=== PATIENT | male | born 1945 | race Caucasian/White ===

== ENCOUNTER → 2022-08-11 | Outpatient (CLI) | payer MEDICARE, MEDICAID, SELFPAY ==
--- NOTE | 2022-08-11 08:56 | VDLE_ITS ---
Reason For Study: Swelling Procedure LEFT This is a venous duplex using B-mode, color GSV is normal. flow and spectral Doppler. CFV is compressible, spontaneous, phasic, Exam performed in department. competent, and demonstrates normal Calf veins not well visualized due to augmentation. patient body habitus and edema. FV is compressible, spontaneous, phasic, competent and demonstrates normal augmentation. POP V is compressible, spontaneous, phasic, competent and demonstrates normal augmentation. T/P Trunk is compressible. PTV is compressible. LT PerV is compressible. SFJ is INCOMPETENT and measures 1.09 x 1.14 cm. GSV proximal thigh measures 1.11 x 1.09 cm. GSV at knee measures 0.91 x 0.98 cm. GSV is competent throughout. SSV at junction is competent and measures 0.54 x 0.53 cm. VL/Venous Duplex US, Unilateral Interpretation Summary Deep veins of the left lower extremity are patent and compressible segmentally. There is no evidence of left lower extremity deep vein thrombosis. The left great saphenous vein brenda ears patent and compressible segmentally. Positive for reflux in the left saphenofemoral junction Ordering Physician: Mounika Hameed Referring Physician: Meeta Ryan Performed By: Ainsley Davenport RVT
--- NOTE | 2022-08-11 08:56 | ART_ITS ---
Reason For Study: Ulcer Procedure A bilateral lower extremity continuous wave Doppler with analog waveform analysis,segmental pressures,and ankle brachial indexes without exercise. Left Segmental Pressures Left brachial= 132mmHg. Left thigh = 198mmHg. Left calf = 132mmHg. Left posterior tibial artery = 119mmHg. Left dorsalis pedis artery = 111mmHg. The left dorsalis pedis waveforms are biphasic. The left posterior tibial artery waveforms are biphasic. Right Segmental Pressures Right brachial= 135mmHg. Right posterior tibial artery = 132mmHg. Right dorsalis pedis artery = 135mmHg. The right dorsalis pedis waveforms are triphasic. The right posterior tibial artery waveforms are triphasic. Indices The right ankle brachial index by the dorsalis pedis is 1.00. The right ankle brachial index by the posterior tibial artery is 0.98. The left ankle brachial index by the dorsalis pedis is 0.82. The left ankle brachial index by the posterior tibial artery is 0.88. VL/Lower Ext Art Exam w/o Exercis Interpretation Summary Right GRACE 1, normal. Doppler/PVR waveforms of the right leg normal at rest. Left GRACE 0.88, moderate arterial insufficiency. Doppler/PVR waveforms and segme ntal pressures reveal distal SFA/popliteal disease Ordering Physician: Mounika Hameed Referring Physician: Meeta Ryan Performed By: Ainsley Davenport RVT
== END | disposition home or self-care (01) ==
LOC: CVS 08:51
PROVIDERS: PCP Internal Medicine Infectious Disease; Referring Provider Physician Assistant; Visit Provider Physician Assistant
DX: I73.9 Peripheral vascular disease, unspecified (principal); L97.929 Non-pressure chronic ulcer of unspecified part of left lower leg with unspecified severity; R22.42 Localized swelling, mass and lump, left lower limb
CPT/HCPCS: 93923; 93971

== ENCOUNTER → 2022-08-21 | Outpatient (CLI) | payer MEDICARE, MEDICAID, SELFPAY ==
--- NOTE | 2022-08-21 15:35 | RAD_ITS ---
STUDY: X-RAY - LEFT FOOT CLINICAL: Male, 77 years old. Pain in left foot. Deformity. TECHNIQUE: 3 view(s) of the foot. COMPARISON: None. FINDINGS: Normal talus, calcaneus, and tarsal bones. Arthrosis of the visualized subtalar, talonavicular, calcaneocuboid, tarsal and tarsometatarsal articulations. Normal first through fourth metatarsi. There is absence of the third ray at the base of the fifth metacarpal. Bone fragment tapers suggesting prior surgical change. There is degenerative arthrosis of the metatarsophalangeal joint of the hallux . Normal tibial and fibular sesamoid bones. Normal interphalangeal joint of the great toe. Normal phalanges of the great toe. Normal second through 4 metatarsophalangeal joints. 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 There is marked soft tissue swelling of the foot with ulceration laterally. No foreign body. RAD/Foot min 3 Views IMPRESSION: 1. 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 2. Soft tissue swelling with ulceration over the lateral aspect of the midfoot without visualized bony destructive change. If there is concern for myelitis, MRI or bone scan is recommended. Electronically Signed: Paco Stearns DO at 18:40 EST Reading Location ID and State: [address] [place] [address] Tel [phone], Service support ,
== END | disposition home or self-care (01) ==
LOC: RAD 15:26
PROVIDERS: PCP Internal Medicine Infectious Disease; Referring Provider Surgery Trauma Surgery; Visit Provider Surgery Trauma Surgery
DX: L97.529 Non-pressure chronic ulcer of other part of left foot with unspecified severity (principal)
CPT/HCPCS: 73630

== ENCOUNTER 2023-10-21 10:18 | Emergency (ER) | payer MEDICARE, MEDICAID, SELFPAY ==
[2023-10-21] VITALS (9 sets, daily range): BP systolic 127–175; BP diastolic 71–91; PULSE 64–93; RESP 14–18; TEMP 36.4–36.7; O2SAT 91–98; BMI 44.6
--- NOTE | 2023-10-21 10:33 | EDS_ITS ---
HPI History of Present Illness Chief Complaint: Wound Narrative Narrative: 78-year-old male presenting with wound care concerns. He was sent in by Dr. Sarah. Dr. Castle stated that he wanted to do surgery because the patient had some subcutaneous emphysema in the right foot. Apparently he did drain this foot about a week ago. Apparently the follow-up x-ray showed this air. He feels he will still need surgical intervention on the foot and the patient also has a left BKA which is apparently performed at [facility]. Dr. Sarah is now caring for him and requests he be admitted for surgery. Patient denies fevers, chills. Apparently the patient also has MRI with him from [facility] that shows abscesses in the BKA on the left that Dr. Sarah is aware of as well. 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) Cellulitis of left lower extremity (~02/2022) DVT (deep venous thrombosis) Dysphagia (~12/2020) Generalized muscle weakness (~02/2022) GERD (gastroesophageal reflux disease) Hyperglycemia Hypertension PVD (peripheral vascular disease) Home Medications albuterol sulfate 90 mcg/actuation aerosol inhaler 2 puff inhalation Q4H PRN SHORTNESS OF BREATH/WHEEZING 07/28/22 [History Last Taken Unknown] apixaban 5 mg tablet (Eliquis) 5 mg PO BID 10/21/23 [History Last Taken Unknown] cholecalciferol (vitamin D3) 125 mcg (5,000 unit) capsule 125 mcg PO DAILY 10/21/23 [History Last Taken 10/21/23] furosemide 20 mg tablet 20 mg PO BID 10/21/23 [History Last Taken Unknown] glimepiride 4 mg tablet 8 mg PO DAILY 10/21/23 [History Last Taken Unknown] insulin aspart U-100 See Protocol 10/21/23 [History Last Taken Unknown] lisinopril 10 mg tablet 10 mg PO DAILY 10/21/23 [History Last Taken Unknown] metformin 1,000 mg tablet 1,000 mg PO BID 10/21/23 [History Last Taken Unknown] metformin 1,000 mg tablet 1,000 mg PO BID DIABETES 10/21/23 [History Last Taken 10/21/23] omeprazole 20 mg capsule,delayed release 20 mg PO BID 10/21/23 [History Last Taken Unknown] Social History Smoking Status: Never smoker ROS ROS ED Constitutional Constitutional ED: Denies chills, fever(s) or sweats Eyes Eyes: Denies blurry vision or change in vision ENT ENT ED: Denies ear pain or sore throat Cardiovascular Cardiovascular: Denies chest pain, palpitations or racing heartbeat Respiratory/Chest Respiratory/Chest: Denies cough, dyspnea or sputum Gastrointestinal Gastrointestinal: Denies abdominal pain, constipation, diarrhea, nausea or vomiting Genitourinary Genitourinary ED: Denies dysuria, hematuria or urinary frequency Musculoskeletal Musculoskeletal: Denies arthralgias, myalgias or neck pain Integumentary Reports abscess; Denies Abrasions or rash Neurologic Neurologic: Denies headache(s), paresthesias or weakness Psychiatric Psychiatric: Denies anxiety, depression, suicidal ideation or suicidal thoughts Endocrine Endocrinology: Denies polydipsia or polyuria EXAM Physical Exam Const Vital Signs: 10/21/23 10:19 10/21/23 10:24 10/21/23 11:24 Temperature 97.6 F L 97.6 F L 98.1 F Temperature Source Temporal Temporal Temporal Pulse Rate 92 92 66 Respiratory Rate 18 18 18 Blood Pressure 147/84 H 147/84 H 131/71 H Blood Pressure Mean 105 105 91 Pulse Ox 97 97 95 Oxygen Delivery Method Room Air Room Air Room Air 10/21/23 12:19 Temperature Temperature Source Pulse Rate 85 Respiratory Rate 18 Blood Pressure 131/74 H Blood Pressure Mean 93 Pulse Ox 94 Oxygen Delivery Method Positive well nourished General Appearance ED: NAD HEENT normocephalic Resp normal respiratory effort and no retractions Cardio regular rate and regular rhythm Extremity Extremity Narrative: Left leg stump: Appears to be nontender. I do not appreciate any fluctuance. There is no drainage. There is a small puncture type wound in the anterior portion. No surrounding cellulitic changes. Right foot with a dressing is taken down there is some swelling but there is only a small wound on the plantar surface of the right foot. There are no other wounds I see. I do not appreciate any crepitance. Neuro oriented x3 Sensorium / Orientation: alert MDM MDM MDM Narrative Medical decision making narrative: 78-year-old male presenting with wounds. Initially thought that the patient's right foot had subcutaneous air on previous x-ray however after reviewing the records Dr. Sarah stated that this was not a new x-ray and he did not think the patient had anything surgical in his right foot. This was confirmed by x-ray today as there is no gas or other acute abnormality in the foot on my interpretation of the foot x-ray. CBC and BMP are normal. CRP minimally elevated 6.93 and sed rate is 51. Dr. Sarah did have concerned about the abscesses that were in the stump which is the other leg and feel strongly that the patient needed a stump revision. I spoke with Dr. Ramon who originally did the surgery for the stump and after short discussion she states that she will except the patient and to call the transfer line and have the medicine admitted. I counseled the patient of all this. He is amenable to going back and seeing Dr. aRmon. Impression: 1. Left stump abscesses 2. Right foot ulcer Lab Data Attestation: I reviewed the patient's lab results. Labs: Laboratory Results - last 24 hr 10/21/23 11:05 WBC 9.6 RBC 4.91 Hgb 12.6 L Hct 40.5 MCV 82.5 MCH 25.7 L MCHC 31.1 L RDW Std Deviation 47.9 H RDW Coeff of Anthony 16.0 H Plt Count 297 MPV 10.1 Immature Gran % (Auto) 0.700 Neut % (Auto) 71.5 H Lymph % (Auto) 12.3 L [place] % (Auto) 12.1 H Eos % (Auto) 2.6 Baso % (Auto) 0.8 Absolute Neuts (auto) 6.8 Absolute Lymphs (auto) 1.18 Nucleated RBC % 0 ESR 51 H Sodium 137 Potassium 4.1 Chloride 106 Carbon Dioxide 25.0 Anion Gap 6 BUN 23 H Creatinine 1.29 Estim Creat Clear Calc 79.86 Est GFR (MDRD) Af Amer 70 Est GFR (MDRD) Non-Af 58 L BUN/Creatinine Ratio 17.8 Glucose 117 H Calcium 9.2 C-React Prot Ext Range 6.93 H Radiography Diagnostic Testing: Clinical Impression(s) from Imaging Studies Foot X-Ray 10/21/23 10:35 IMPRESSION: Status post amputation of the left fifth toe. Degenerative changes as described. Diffuse soft tissue swelling. Electronically Signed: Joselito Tejada MD at 11:23 EDT , Discharge Plan Triage Chief Complaint: Wound ED Provider: Perico Corona Dx/Rx/DC Orders Prescriptions: No Action albuterol sulfate 90 mcg/actuation HFA aerosol inhaler 2 puff inhalation Q4H PRN (Reason: SHORTNESS OF BREATH/WHEEZING ) glimepiride 4 mg tablet 8 mg PO DAILY metformin 1,000 mg tablet 1,000 mg PO BID cholecalciferol (vitamin D3) 125 mcg (5,000 unit) capsule 125 mcg PO DAILY metformin 1,000 mg tablet 1,000 mg PO BID insulin aspart U-100 See Protocol Protocol: 6. Sliding Scale Insulin Custom Condition: mg/dl range Dose/Route: Number of Units Condition: 151-200 Dose/Route: 3 units Condition: 201-250 Dose/Route: 6 units Condition: 251-300 Dose/Route: 9 units Condition: 301-350 Dose/Route: 12 units Condition: 351-400 Dose/Route: 15 units Condition: >400 Instruction: call MD Protocol Text: Custom Sliding Scale lisinopril 10 mg tablet 10 mg PO DAILY omeprazole 20 mg capsule,delayed release(DR/EC) 20 mg PO BID furosemide 20 mg tablet 20 mg PO BID Eliquis 5 mg tablet 5 mg PO BID Primary Care Provider: Meeta Ryan Referrals: Meeta Ryan MD [Primary Care Provider] -
--- NOTE | 2023-10-21 10:35 | RAD_ITS ---
STUDY: X-RAY - RIGHT FOOT CLINICAL: Male, 78 years old. Nontraumatic pain. TECHNIQUE: 3 view(s) of the foot. COMPARISON: None. FINDINGS: Calcaneal spurs. Normal visualized subtalar, talonavicular, calcaneocuboid, tarsal and tarsometatarsal articulations. Normal metatarsi. There is degenerative arthrosis of the metatarsophalangeal joint of the hallux . Normal tibial and fibular sesamoid bones. Normal interphalangeal joint of the great toe. Normal phalanges of the great toe. Marked degree of degenerative changes of the first cuneiform first metatarsal joint osteoarthritis. The patient is status post amputation of the fifth digit. Flexion deformity of the metatarsophalangeal joints. Diffuse soft tissue swelling. RAD/Foot min 3 Views IMPRESSION: Status post amputation of the left fifth toe. Degenerative changes as described. Diffuse soft tissue swelling. Electronically Signed: Joselito Tejada MD at 11:23 EDT ,
[2023-10-21 11:23] LABS: Erythrocyte Sedimentation Rate 51 mm/hr (0-20)
[2023-10-21 11:27] LABS: Absolute Lymphocyte Count 1.18 X10^3/uL (0.83-4.51); Absolute Neutrophil Count 6.8 X10^3/uL (2.0-7.7); Basophil# 0.08 X10^3/uL; Basophil% 0.8 % (0-1); Eosinophil# 0.25 X10^3/uL; Eosinophils% 2.6 % (0-5); Hematocrit 40.5 % (40-54); Hemoglobin 12.6 g/dL (13.0-16.5); Lymphocyte # 1.18 X10^3/ul (0.83-4.51); Lymphocyte % 12.3 % (19-41); Mean Corp Hgb Conc 31.1 g/dL (32-36); Mean Corpuscular Hgb 25.7 pg (27.0-32.0); Mean Corpuscular Volume 82.5 fL (80-94); Mean Platelet Vol. 10.1 fl (6.2-12.0); Monocyte# 1.16 X10^3/uL; Monocyte% 12.1 % (0-10); NRBC Flagged by Analyzer 0 % (0-5); Neutrophil # 6.84 X10^3/uL (2.7-7.7); Neutrophil % 71.5 % (47-70); Platelet Count 297 K/mm3 (150-450); RBC Distribution Width SD 47.9 fl (35.1-43.9); Red Blood Count 4.91 M/mm3 (4.6-6.2); White Blood Count 9.6 K/mm3 (4.4-11.0)
[2023-10-21 11:30] LABS: Anion Gap 6 (5-15); BUN 23 mg/dL (7-18); BUN/Creat Ratio 17.8 RATIO (10-20); CRP 6.93 mg/L (0.0-3.0); Calcium,Total 9.2 mg/dL (8.5-10.1); Chloride 106 mmol/L (98-107); Creatinine, Serum 1.29 mg/dL (0.70-1.30); EST Glomerular Filtration Rate 58 mL/min (>60); Est Glom Filt Rate - Afr Amer 70 mL/min (>60); Estimated Creatinine Clearance 79.86 ml/min; Glucose 117 mg/dL (74-106); Potassium 4.1 mmol/L (3.5-5.1); Sodium Level 137 mmol/L (136-145)
--- NOTE | 2023-10-21 12:11 | ED.RN ---
Paged Dr Ramon for pt. Office wasn't sure she would call back.
--- NOTE | 2023-10-21 12:29 | ED.RN ---
called [facility] for transfer.
[2023-10-21] MEDS: Piperacil/Tazobactam 3.375 GM in 0.9% Normal Saline (50mL MB+) 50 ML IV (16:36)
[2023-10-21] MEDS: Vancomycin HCl 2,000 MG in 0.9% Normal Saline (500mL Bag) 500 ML 250 MG IV (18:09)
[2023-10-21] MEDS: DiphenhydrAMINE 50 MG/ML Syringe 25 MG IV (22:02)
[2023-10-21 22:28] LABS: Bedside Glucose 165 mg/dL (74-106)
[2023-10-22] VITALS (12 sets, daily range): BP systolic 93–155; BP diastolic 51–84; PULSE 66–101; RESP 16–20; TEMP 36.2–36.8; O2SAT 93–98
--- NOTE | 2023-10-22 06:52 | ED.RN ---
Home meds verified with Dr. Zamorano. Ok for pt to eat breakfast and receive morning meds but not insulin at this time. To check blood sugars ACHS but update Doc on blood sugars.
[2023-10-22 07:00] LABS: Bedside Glucose 130 mg/dL (74-106)
[2023-10-22] MEDS: Glimepiride 4 MG Tablet 8 MG PO (11:55)
[2023-10-22] MEDS: metFORMIN HCl 1,000 MG Tablet 1000 MG PO ×2 (11:56→17:57)
[2023-10-22] MEDS: Pantoprazole Sodium 20 MG Tablet PO ×2 (11:56→22:05)
[2023-10-22] MEDS: Lisinopril 10 MG Tablet PO (11:56)
[2023-10-22] MEDS: Furosemide 20 MG Tablet PO ×2 (11:57→18:34)
[2023-10-22] MEDS: Cholecalciferol (Vit D3) 125 MCG CAPSULE (5,000 UNITS) PO (11:57)
[2023-10-22 17:29] LABS: Bedside Glucose 63 mg/dL (74-106)
--- NOTE | 2023-10-22 17:44 | ED.RN ---
Report given to Janna PERKINS at [facility].
[2023-10-22 18:22] LABS: Bedside Glucose 93 mg/dL (74-106)
--- NOTE | 2023-10-22 19:57 | ED.RN ---
[facility] for [facility] ETA. They gave an additional 2-3 hours from now.
--- NOTE | 2023-10-22 22:39 | PCM.RX.CS ---
Consult Antibiotic Management Pharmacy has been consulted to manage selected antibiotic: Vancomycin Type of Intervention Type of Consult: New start Suspected Infection Suspected Infection: Skin/Soft tissue Labs Labs: Sodium 137 mmol/L (136-145) 10/21/23 11:05 Potassium 4.1 mmol/L (3.5-5.1) 10/21/23 11:05 Chloride 106 mmol/L (98-107) 10/21/23 11:05 Carbon Dioxide 25.0 mmol/L (21.0-32.0) 10/21/23 11:05 Anion Gap 6 (5-15) 10/21/23 11:05 BUN 23 mg/dL (7-18) H 10/21/23 11:05 Creatinine 1.29 mg/dL (0.70-1.30) 10/21/23 11:05 Est GFR (MDRD) Af Amer 70 mL/min (>60) 10/21/23 11:05 Est GFR (MDRD) Non-Af 58 mL/min (>60) L 10/21/23 11:05 BUN/Creatinine Ratio 17.8 RATIO (10-20) 10/21/23 11:05 Glucose 117 mg/dL (74-106) H 10/21/23 11:05 Dosing Weight Weight used for dosin kg Estimated Creatinine Clearance Estimated Creatinine Clearance: 79 Goal Trough Goal Trough: 15-20 mcg/mL Pharmacy Plan for Drug Dosing Pharmacy Plan for Drug Dosing: NEW START IV VANCOMYCIN Consulting Physician: Dr. Corona Indication: abscess/cellulitis Goal Trough: 15-20 SrCr: 1.29 (10/21/23) CrCl: 79 ml/min Comments: Received Vancomycin 2000mg x1 dose at 18:09 10/21/23 Vancomycin Dose: Vancomycin 1750mg Q12H Pending Level: Vancomycin trough @ 10:30 10/24/23 Pharmacy Service will continue to monitor and adjust dosing as required. Follow-Up Labs Follow-Up Labs: Trough: Vancomycin (10:30 10/24/23)
== END 2023-10-22 23:26 | disposition short-term general hospital (02) ==
LOC: ED 11:16
PROVIDERS: Emergency Provider Student in an Organized Health Care Education/Training Program; PCP Internal Medicine Infectious Disease; Visit Provider Student in an Organized Health Care Education/Training Program
DX: T87.44 Infection of amputation stump, left lower extremity (principal); L97.919 Non-pressure chronic ulcer of unspecified part of right lower leg with unspecified severity; Z89.512 Acquired absence of left leg below knee; Z79.4 Long term (current) use of insulin; L02.91 Cutaneous abscess, unspecified; K21.9 Gastro-esophageal reflux disease without esophagitis; I10 Essential (primary) hypertension; E78.5 Hyperlipidemia, unspecified; Z79.01 Long term (current) use of anticoagulants; Z79.84 Long term (current) use of oral hypoglycemic drugs; Z86.718 Personal history of other venous thrombosis and embolism; Z79.899 Other long term (current) drug therapy
CPT/HCPCS: 73630; 80048; 82962; 85025; 85652; 86140; 96365; 96366; 96367; 96375; 99284; J7040; A4216

== ENCOUNTER 2023-11-11 09:15 | Outpatient (RCR) | payer MEDICARE, MEDICAID, SELFPAY ==
[2023-10-14 09:10] VITALS: BP 164/75; PULSE 94; RESP 18; TEMP 36; BMI 44.4
--- NOTE | 2023-10-14 13:22 | HP.PCM_ITS ---
History of Present Illness Date of Service: 10/14/23 Chief Complaint: Bilateral leg wounds. History of Wound: By leg wounds. Progress of Wound: Mr. 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 Patient was seen by an outside provider/orthopedic surgeon who performed below-knee amputation to left lower extremity. 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 Patient has been on oral antibiotics with limited success on healing to the wound on the left stump site. Patient also has multiple full- thickness ulcerations to the right lower extremity secondary to increased pressure with AFO brace and contracture at the level of the ankle. Patient is nonambulatory at this time secondary to low knee amputation to left lower extremity. He is able to transfer and move around in a wheelchair. He denies any trauma. He admits to a wide range of blood sugar readings from 100 to 300 mg/dL. He does admit that he is more stable at the residential facility. He denies any trauma. 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) Cellulitis of left lower extremity (~02/2022) DVT (deep venous thrombosis) Dysphagia (~12/2020) Generalized muscle weakness (~02/2022) GERD (gastroesophageal reflux disease) Hyperglycemia Hypertension PVD (peripheral vascular disease) Home Medications albuterol sulfate 90 mcg/actuation aerosol inhaler 2 puff inhalation Q4H PRN 07/28/22 [History Last Taken Unknown] apixaban 5 mg tablet (Eliquis) 5 mg PO BID 07/28/22 [History Last Taken Unknown] furosemide 20 mg tablet 20 mg PO DAILY 07/28/22 [History Last Taken Unknown] lisinopril 10 mg tablet 10 mg PO DAILY 07/28/22 [History Last Taken Unknown] omeprazole 20 mg capsule,delayed release 20 mg PO BID 07/28/22 [History Last Taken Unknown] cephalexin 500 mg capsule 500 mg PO TID 08/21/22 [History Last Taken Unknown] doxycycline hyclate 100 mg tablet 100 mg PO BID 08/21/22 [History Last Taken Unknown] Allergy/AdvReac Type Severity Reaction Status Date / Time No Known Allergies Allergy Unverified 08/21/22 14:59 Social History Smoking Status: Never smoker Vital Signs Vital Signs Vital Signs: 10/14/23 09:10 Temperature 96.8 F L Temperature Source Temporal Pulse Rate 94 Respiratory Rate 18 Blood Pressure 164/75 H Blood Pressure Mean 104 Blood Pressure Source Monitor Blood Pressure Position Sitting Blood Pressure Location Left Forearm Oxygen Delivery Method Room Air Weight Weight: 161.479 kg Body Mass Index (BMI) 44.4 Physical Exam Narrative Vascular: DP and PT pulses are nonpalpable to the right lower extremity. DP and PT pulses on Doppler are biphasic. 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 Skin temp great is warm to warm from proximal ankle to distal digits to the right lower extremity. Skin temperature gradient is warm to cool to the need to the BKA stump to left lower extremity. No focal increase appreciated. Neurological: Light touch intact. Protective station is diminished. Dermatological: Full-thickness ulceration which is a tunneling wound of the left BKA stump measuring 0.3 x 0.3 x 2.2 cm. Sanguinous drainage is appreciated. No probe to bone. Right leg cluster full-thickness ulceration measures 0.3 x 0.4 x 0.1 cm. Right ankle laterally full-thickness ulceration measures 0.9 x 0.8 x 0.2 cm. Wound depth is down to muscle. Right lateral foot ulceration measures 0.4 x 0.5 x 0.1 cm. Right second digit dorsally full-thickness ulceration measures 0.7 x 0.7 x 0.1 cm. All wound bases are granular nature with no sign of infection bilaterally. Excisional debridement down to and including subcutaneous tissue of the left BKA stump full-thickness ulceration with a number 1 mm dermal curette without incident. Predebridement measurement was 0.2 x 0.2 x 2.0 cm. Postdebridement measurement is 0.3 x 0.3 x 2.2 cm. Excisional debridement down to and including subcutaneous tissue with a number 3 mm dermal curette through the right leg cluster ulcerations without incident. Predebridement measurement was 0.2 x 0.3 x 0.1 cm. Postdebridement measurement is 0.3 x 0.4 x 0.1 cm. Excisional debridement down to and including subcutaneous tissue fascia and muscle of the right lateral ankle full-thickness ulceration with a number 3 mm dermal curette without incident. Predebridement measurement was 0.7 x 0.7 x 0.1 cm. Postdebridement measurement is 0.9 x 0.8 x 0.2 cm. Incision debridement down to and including subcutaneous tissue with a number 3 mm dermal curette to the lateral foot ulceration without incident. Predebridement measurement was 0.3 x 0.4 x 0.1 cm. Postdebridement measurement is 0.4 x 0.5 x 0.1 cm. Excisional debridement down to and including subcutaneous tissue of the dorsal second digit on the right foot with a number 3 mm dermal curette without incident. Predebridement measurement was eschar. Postdebridement measurement is 0.7 x 0.7 0.1 cm. Musculoskeletal evidence of varus contracture to the right ankle secondary to tight posterior tibial tendon and anterior tibial tendon. Full range of motion of the knee without pain or crepitus. No pain to palpation to bilateral full- thickness ulcerations. No pain with calf compression bilateral. Debridement Note Debridement Note Debridement Free Text: Excisional debridement down to and including subcutaneous tissue of the left BKA stump full-thickness ulceration with a number 1 mm dermal curette without incident. Predebridement measurement was 0.2 x 0.2 x 2.0 cm. Postdebridement measurement is 0.3 x 0.3 x 2.2 cm. Excisional debridement down to and including subcutaneous tissue with a number 3 mm dermal curette through the right leg cluster ulcerations without incident. Predebridement measurement was 0.2 x 0.3 x 0.1 cm. Postdebridement measurement is 0.3 x 0.4 x 0.1 cm. Excisional debridement down to and including subcutaneous tissue fascia and muscle of the right lateral ankle full-thickness ulceration with a number 3 mm dermal curette without incident. Predebridement measurement was 0.7 x 0.7 x 0.1 cm. Postdebridement measurement is 0.9 x 0.8 x 0.2 cm. Incision debridement down to and including subcutaneous tissue with a number 3 mm dermal curette to the lateral foot ulceration without incident. Predebridement measurement was 0.3 x 0.4 x 0.1 cm. Postdebridement measurement is 0.4 x 0.5 x 0.1 cm. Excisional debridement down to and including subcutaneous tissue of the dorsal second digit on the right foot with a number 3 mm dermal curette without incident. Predebridement measurement was eschar. Postdebridement measurement is 0.7 x 0.7 0.1 cm. Post-Debridement Measurements and Additional Note: Post-Debridement Measurements/Treatment - Nurse 1 - General Ulcer Assessment Start: 10/14/23 09:01 Freq: Status: Active Protocol: [email or web address] Activity Type Activity Date Activity User E-sign Co-sign Detail Recorded Client Recorded Date Recorded By Document 10/14/23 09:10 KW Desktop 10/14/23 09:35 KW 10/14/23 09:10 - Today's Visit Information Type of service Initial Visit Arrival Mode Wheelchair Transfer Assistance Jackelyn Lift Accompanied by nurse Patient Identification Verified (Name & Yes ) Finger Stick Blood Sugar(mg/dl) (if 144 indicated): Blood Sugar Stated by Patient Height and Weight Height 6 ft 3 in Weight 161.479 kg Weight in Pounds 356.0 lbs Weight Measurement Method Long-Term Body Mass Index (BMI) 44.4 BMI Classification Obese BSA - Seema 2.80 Vital Signs Temperature (97.8 F-99.1 F) 96.8 F L Temperature Source Temporal Pulse Rate (60-100) 94 Pulse Location Monitor Respiratory Rate (12-18) 18 Respiratory rate source Observation Oxygen Delivery Method Room Air Blood Pressure (90/60-120/80) 164/75 H Blood Pressure Mean 104 Source Monitor Position Sitting Blood Pressure Location Left Forearm History Since Last Visit- (Skip if this is Patient's initial visit) Left Footwear No Footwear Right Footwear No Footwear Pain Scale: 0-10 Numeric Is Patient Pain Free? Yes Communication Assessment Preferred language [place] [employer] Technician Required No Able to Read Yes Able to Write Yes Communication Tools None Caregiver Communication Skills No Impairment Impairment Right Hearing Abillity Hard of Hearing Left Hearing Abillity Hard of Hearing Visual Assistive Devices None Teaching Assessment Preferences Verbal,Written, Demonstration Barriers to Learning None Readiness To Learn Excellent Willingness to Engage in Self Management High Activies Readiness to Engage in Self Management High Activities Anxiety Level Calm Cooperation Cooperative Perception Coherent Interest in Health Problem Asks Questions Education Importance Acknowledges Need Does Patient Smoke tobacco or other Yes substances Smoking Status Never smoker Is Patient Diabetic Yes Functional Assessment Recent Decline in Ability to Perform Ambulation, Bathing,Lower Body Dressing, Toileting, Transferring Culture/Sikhism/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 Landscape Architecture Teacher to contact place of rastafarian No WC - Nurse 1 - General Ulcer Measurement Start: 10/14/23 09:01 Freq: Status: Active Protocol: Activity Type Activity Date Activity User E-sign Co-sign Detail Recorded Client Recorded Date Recorded By Document 10/14/23 09:10 KW Desktop 10/14/23 09:35 KW 10/14/23 09:10 Wound Center Nurse 1 #2 RT GOODE -Current Size (cm) - Length 0.3 -Current Size (cm) - Width 0.2 -Current Size (cm) - Depth 0.1 -Total Square Cm 0.06 -Exudate Amt Small -Exudate Type Serosanguineous -Wound Margin Distinct, Outline Attached -Granulation Amt Large (67-100%) -Granulation Quality Red -Texture (Michell-wound Skin Appearance) Assessed -Moisture (Michell-wound Skin Appearance) Assessed -Color (Michell-wound Skin Appearance) Assessed, Hemosiderin Staining -Temperature (Michell-wound Skin No Abnormality Appearance) (Pt Warm) -Ulcer Cleansing Soap and Water -Foul Odor after Cleansing No -Anesthetic Used 5% Lidocaine Gel #6 RT 2ND TOE -Current Size (cm) - Length 0.5 -Current Size (cm) - Width 0.5 -Current Size (cm) - Depth 0.1 -Total Square Cm 0.25 -Exudate Amt Medium -Exudate Type Serosanguineous -Wound Margin Distinct, Outline Attached -Granulation Amt Large (67-100%) -Granulation Quality Red -Necrosis Amt Small (1-33%) -Necrotic Tissue Type Adherent Slough -Texture (Michell-wound Skin Appearance) Assessed -Moisture (Michell-wound Skin Appearance) Assessed -Color (Michell-wound Skin Appearance) Assessed -Temperature (Michell-wound Skin No Abnormality Appearance) (Pt Warm) -Tenderness on Palpation (Michell-wound No Skin Appearance) -Ulcer Cleansing Soap and Water -Foul Odor after Cleansing No -Anesthetic Used 5% Lidocaine Gel #5 RT LAT FT -Current Size (cm) - Length 0.1 -Current Size (cm) - Width 0.1 -Current Size (cm) - Depth 0.1 -Total Square Cm 0.01 -Exudate Amt Small -Exudate Type Serosanguineous -Wound Margin Distinct, Outline Attached -Granulation Amt Large (67-100%) -Granulation Quality Red -Texture (Michell-wound Skin Appearance) Assessed -Moisture (Michell-wound Skin Appearance) Assessed -Color (Michell-wound Skin Appearance) Assessed -Temperature (Michell-wound Skin No Abnormality Appearance) (Pt Warm) -Tenderness on Palpation (Mcihell-wound No Skin Appearance) -Ulcer Cleansing Soap and Water -Foul Odor after Cleansing No -Anesthetic Used 5% Lidocaine Gel #4 RT LAT ANKLE -Current Size (cm) - Length 1 -Current Size (cm) - Width 0.8 -Current Size (cm) - Depth 0.3 -Total Square Cm 0.8 -Exudate Amt Small -Exudate Type Serosanguineous -Wound Margin Distinct, Outline Attached -Granulation Amt Large (67-100%) -Granulation Quality Red -Necrosis Amt Small (1-33%) -Necrotic Tissue Type Adherent Slough -Texture (Michell-wound Skin Appearance) Assessed -Moisture (Michell-wound Skin Appearance) Assessed -Color (Michell-wound Skin Appearance) Assessed, Hemosiderin Staining -Temperature (Michell-wound Skin No Abnormality Appearance) (Pt Warm) -Ulcer Cleansing Soap and Water -Foul Odor after Cleansing No -Anesthetic Used 5% Lidocaine Gel #3 RT LAT LEG CLUSTER -Current Size (cm) - Length 0.1 -Current Size (cm) - Width 0.1 -Current Size (cm) - Depth 0.1 -Total Square Cm 0.01 -Exudate Amt Small -Exudate Type Serosanguineous -Wound Margin Distinct, Outline Attached -Granulation Amt Large (67-100%) -Granulation Quality Red -Texture (Michell-wound Skin Appearance) Assessed -Moisture (Michell-wound Skin Appearance) Assessed -Color (Michell-wound Skin Appearance) Assessed -Temperature (Michell-wound Skin No Abnormality Appearance) (Pt Warm) -Ulcer Cleansing Soap and Water -Anesthetic Used 5% Lidocaine Gel #1 LT STUMP -Current Size (cm) - Length 0.6 -Current Size (cm) - Width 0.6 -Current Size (cm) - Depth 3 -Total Square Cm 0.36 -Circular Undermining Yes -Exudate Amt Medium -Exudate Type Serosanguineous -Wound Margin Distinct, Outline Attached -Granulation Amt Large (67-100%) -Granulation Quality Red -Texture (Michell-wound Skin Appearance) Assessed -Moisture (Michell-wound Skin Appearance) Assessed -Color (Michell-wound Skin Appearance) Assessed -Temperature (Michell-wound Skin No Abnormality Appearance) (Pt Warm) -Tenderness on Palpation (Michell-wound No Skin Appearance) -Ulcer Cleansing Soap and Water -Foul Odor after Cleansing No -Anesthetic Used 5% Lidocaine Gel WC - Nurse 2 - General Ulcer CM Notes Start: 10/14/23 09:01 Freq: Status: Active Protocol: Activity Type Activity Date Activity User E-sign Co-sign Detail Recorded Client Recorded Date Recorded By Document 10/14/23 10:05 Laptop 10/14/23 10:16 10/14/23 10:05 Wound Center Nurse 2 #2 RT GOODE -Correct Patient No -Correct Side, Site, Position No -Correct Procedure No -Procedure Performed No #6 RT 2ND TOE -Time 10:10 -Correct Patient Yes -Correct Side, Site, Position Yes -Correct Procedure Yes -Procedure Performed Yes -Type of Procedure Debridement -Clinical Debridement Subcutaneous -Tissue Removed Subcutaneous -Post Debridement (cm) - Length 0.7 -Post Debridement (cm) - Width 0.7 -Post Debridement (cm) - Depth 0.1 -Total Square (Post) (cm) 0.49 -Area of Debridement (cm) - Length 0.7 -Area of Debridement (cm) - Width 0.7 -Total Square (Area) (cm) 0.49 -Tunneling No -Undermining/Tunneling No -Circular Undermining No -Wound/Ulcer Outcome Not Healed -Ulcer Cleansing Rinsed/ Irrigated with Saline -Foul Odor after Cleansing No -Bioengineered Tissue No -Bleeding Controlled with Pressure -Treatment Response Procedure Tolerated Well -Offloading No -Debridement - Subq, 1st 20sq cm No #5 RT LAT FT -Time 10:10 -Correct Patient Yes -Correct Side, Site, Position Yes -Correct Procedure Yes -Procedure Performed Yes -Type of Procedure Debridement -Clinical Debridement Subcutaneous -Tissue Removed Subcutaneous -Post Debridement (cm) - Length 0.4 -Post Debridement (cm) - Width 0.5 -Post Debridement (cm) - Depth 0.1 -Total Square (Post) (cm) 0.20 -Area of Debridement (cm) - Length 0.4 -Area of Debridement (cm) - Width 0.5 -Total Square (Area) (cm) 0.20 -Tunneling No -Undermining/Tunneling No -Circular Undermining No -Wound/Ulcer Outcome Not Healed -Ulcer Cleansing Rinsed/ Irrigated with Saline -Foul Odor after Cleansing No -Bioengineered Tissue No -Bleeding Controlled with Pressure -Treatment Response Procedure Tolerated Well -Offloading No -Debridement - Subq, 1st 20sq cm No #4 RT LAT ANKLE -Time 10:11 -Correct Patient Yes -Correct Side, Site, Position Yes -Correct Procedure Yes -Procedure Performed Yes -Type of Procedure Debridement -Clinical Debridement Muscle / Fascia -Tissue Removed Muscle,Fascia -Post Debridement (cm) - Length 0.9 -Post Debridement (cm) - Width 0.8 -Post Debridement (cm) - Depth 0.2 -Total Square (Post) (cm) 0.72 -Area of Debridement (cm) - Length 0.9 -Area of Debridement (cm) - Width 0.8 -Total Square (Area) (cm) 0.72 -Tunneling No -Undermining/Tunneling No -Circular Undermining No -Wound/Ulcer Outcome Not Healed -Ulcer Cleansing Rinsed/ Irrigated with Saline -Foul Odor after Cleansing No -Bioengineered Tissue No -Bleeding Controlled with Pressure -Treatment Response Procedure Tolerated Well -Offloading No -Debridement - Subq, 1st 20sq cm No -Debridement - Muscle / Fascia, 1st Yes 20sq cm #3 RT LAT LEG CLUSTER -Time 10:11 -Correct Patient Yes -Correct Side, Site, Position Yes -Correct Procedure Yes -Procedure Performed Yes -Type of Procedure Debridement -Clinical Debridement Subcutaneous -Tissue Removed Subcutaneous -Post Debridement (cm) - Length 0.3 -Post Debridement (cm) - Width 0.4 -Post Debridement (cm) - Depth 0.1 -Total Square (Post) (cm) 0.12 -Area of Debridement (cm) - Length 0.3 -Area of Debridement (cm) - Width 0.4 -Total Square (Area) (cm) 0.12 -Tunneling No -Undermining/Tunneling No -Circular Undermining No -Wound/Ulcer Outcome Not Healed -Ulcer Cleansing Rinsed/ Irrigated with Saline -Bioengineered Tissue No -Bleeding Controlled with Pressure -Treatment Response Procedure Tolerated Well -Offloading No -Debridement - Subq, 1st 20sq cm No #1 LT STUMP -Time 10:12 -Correct Patient Yes -Correct Side, Site, Position Yes -Correct Procedure Yes -Procedure Performed Yes -Type of Procedure Debridement -Clinical Debridement Subcutaneous -Tissue Removed Dermis -Post Debridement (cm) - Length 0.3 -Post Debridement (cm) - Width 0.3 -Post Debridement (cm) - Depth 2.2 -Total Square (Post) (cm) 0.09 -Area of Debridement (cm) - Length 0.3 -Area of Debridement (cm) - Width 0.3 -Total Square (Area) (cm) 0.09 -Tunneling No -Undermining/Tunneling No -Circular Undermining No -Wound/Ulcer Outcome Not Healed -Ulcer Cleansing Rinsed/ Irrigated with Saline -Foul Odor after Cleansing No -Bioengineered Tissue No -Bleeding Controlled with Pressure -Treatment Response Procedure Tolerated Well -Offloading No -Debridement - Subq, 1st 20sq cm Yes Pain Scale: 0-10 Numeric Is Patient Pain Free? Yes WC - Nurse 3 - General Ulcer D/C NN Start: 10/14/23 09:01 Freq: Status: Active Protocol: Activity Type Activity Date Activity User E-sign Co-sign Detail Recorded Client Recorded Date Recorded By Document 10/14/23 10:50 KW Desktop 10/14/23 10:51 KW 10/14/23 10:50 Wound Care Center Nurse 3 #6 RT 2ND TOE -Primary Dressing Applied Promogran Rafaela Matter -Primary Dressing Covered/Secured with Dry Gauze,Dry Gauze & Roll Gauze,Secured with Tape -Promogran Rafaela Matter 1 #5 RT LAT FT -Primary Dressing Covered/Secured with Dry Gauze #4 RT LAT ANKLE -Primary Dressing Covered/Secured with Dry Gauze #3 RT LAT LEG CLUSTER -Primary Dressing Covered/Secured with Dry Gauze #1 LT STUMP -Primary Dressing Applied Nugauze, Iodoform 1/4in -Primary Dressing Covered/Secured with Dry Gauze & Roll Gauze, Secured with Tape -Nugauze, Iodoform 1/4in 1 Left -Tubular Bandage Single Layer -Size of Tubigrip Used Size E -Size E ($) 1 Right -Tubular Bandage Single Layer -Size of Tubigrip Used Size E -Size E ($) 1 Pain Scale: 0-10 Numeric Is Patient Pain Free? Yes WC - Visit Discharge Discharge Condition Stable Ambulatory Status Wheelchair Accompanied by NURSE Medication Reconcilliation completed & No provided to patient/care provider Clinical Summary of Care Provided Yes Assessment/Plan Assessment/Plan (1) Non-pressure chronic ulcer of right ankle with necrosis of muscle: CODE(S): L97.313 - Non-pressure chronic ulcer of right ankle with necrosis of muscle PLAN: Patient was examined and evaluated. All findings were discussed with the patient. All questions were answered to the patient's satisfaction. Excisional debridement down to and including subcutaneous tissue of the left BKA stump full-thickness ulceration with a number 1 mm dermal curette without incid ent. Predebridement measurement was 0.2 x 0.2 x 2.0 cm. Postdebridement measurement is 0.3 x 0.3 x 2.2 cm. Excisional debridement down to and including subcutaneous tissue with a number 3 mm dermal curette through the right leg cluster ulcerations without incident. Predebridement measurement was 0.2 x 0.3 x 0.1 cm. Postdebridement measurement is 0.3 x 0.4 x 0.1 cm. Excisional debridement down to and including subcutaneous tissue fascia and muscle of the right lateral ankle full-thickness ulceration with a number 3 mm dermal curette without incident. Predebridement measurement was 0.7 x 0.7 x 0.1 cm. Postdebridement measurement is 0.9 x 0.8 x 0.2 cm. Incision debridement down to and including subcutaneous tissue with a number 3 mm dermal curette to the lateral foot ulceration without incident. Predebridement measurement was 0.3 x 0.4 x 0.1 cm. Postdebridement measurement is 0.4 x 0.5 x 0.1 cm. Excisional debridement down to and including subcutaneous tissue of the dorsal second digit on the right foot with a number 3 mm dermal curette without incident. Predebridement measurement was eschar. Postdebridement measurement is 0.7 x 0.7 0.1 cm. The bilateral lower extremities were cleaned and patted dry. Iodoform packing was packed into the full-thickness ulceration of the left BKA stump followed by dry sterile dressing and Tubigrip. The right lower extremity full-thickness ulceration was dressed with Rafaela, dry sterile dressing and a single-layer Tubigrip. Bilateral dressings can be changed daily and or every other day as well as as needed when needed with iodoform to the left and Rafaela to the right followed by dry sterile dressing and compression bilaterally. Educated the patient to continue to optimize his condition so that we can move forward with elective surgery consisting of TTC arthrodesis with [place] 28 silver back lateral plating system. The patient suffers from a contracture and would not be a candidate for soft tissue reconstruction but rather for osseous arthrodesis. Risk and benefit discussed with patient great detail. Patient was understanding this. Educated patient continue to work with physical therapy and do as much upper bod y strengthening conditioning as possible. He is to watch his weight control and continue strict blood sugar control which she was understanding of. X-rays were ordered for the right foot and ankle. Will discuss findings at follow-up. Follow-up at the wound care center with Dr. Sarah in 1 week. 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
--- NOTE | 2023-10-15 11:48 | WC ---
10/14/2023 LEFT MEDIAL STUMP
--- NOTE | 2023-10-15 11:49 | WC ---
10/14/2023 RIGHT SECOND TOE (I)
--- NOTE | 2023-10-15 11:49 | WC ---
10/14/2023 RIGHT LATERAL ANKLE(I), RIGHT LATERAL FOOT (I)
[2023-10-21 09:15] VITALS: BP 131/71; PULSE 93; RESP 18; TEMP 36.3; BMI 44.4
--- NOTE | 2023-10-21 12:57 | PCM.WC.PN ---
History of Present Illness Date of Service: 10/21/23 Chief Complaint: Bilateral leg wounds. History of Wound: By leg wounds. Progress of Wound: Mr. 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 Patient was seen by an outside provider/orthopedic surgeon who performed below-knee amputation to left lower extremity. 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 Patient has been on oral antibiotics with limited success on healing to the wound on the left stump site. Patient also has multiple full-thickness ulcerations to the right lower extremity secondary to increased pressure with AFO brace and contracture at the level of the ankle. Patient is nonambulatory at this time secondary to low knee amputation to left lower extremity. He is able to transfer and move around in a wheelchair. He denies any trauma. He admits to a wide range of blood sugar readings from 100 to 300 mg/dL. He does admit that he is more stable at the [facility] facility. He denies any trauma. Subjective Subjective Mr. Olivares is a 78-year-old diabetic male presenting to clinic today for follow-up evaluation of multiple full-thickness ulcerations to the right lower extremity as well as full-thickness tunneling wound to the left below-knee amputation stump. Patient admits to getting a MRI of the left lower extremity/BKA stump approximately 7 days ago. He presents today with the results. He has been doing wound care dressing changes at the [facility] facility with the aid of the nursing staff. He denies any changes to the right lower extremity. He has been compliant with this use of the brace to the right leg as it was causing breakdown of skin. He continues to offload the right leg with a PRAFO boot as well as the left BKA stump with a PRAFO boot. He presents today in a wheelchair and Jackelyn sheet. He admits to blood sugar being well-controlled with some incidence of elevated blood sugar above 200 mg/dL. He denies any trauma. Denies any constitutional symptoms. No other pedal complaints at this time. Objective Data Objective Data Vital Signs: Vital Signs Temp Pulse Resp BP O2 Del Method 97.3 F L 93 18 131/71 H Room Air 10/21/23 09:15 10/21/23 09:15 10/21/23 09:15 10/21/23 09:15 10/21/23 09:15 Oxygen Delivery Method Room Air Weight: 161.479 kg Body Mass Index (BMI) 44.4 Physical Exam Narrative Vascular: DP and PT pulses are nonpalpable to the right lower extremity. DP and PT pulses on Doppler are biphasic. 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 Skin temp great is warm to warm from proximal ankle to distal digits to the right lower extremity. Skin temperature gradient is warm to cool to the need to the BKA stump to left lower extremity. No focal increase appreciated. Neurological: Light touch intact. Protective station is diminished. Dermatological: Full-thickness ulceration which is a tunneling wound of the left BKA stump measuring 0.3 x 0.3 x 2.2 cm. Sanguinous drainage is appreciated. No probe to bone. Right leg cluster full-thickness ulceration measures 0.3 x 0.4 x 0.1 cm. Right ankle laterally full-thickness ulceration measures 0.9 x 0.8 x 0.2 cm. Wound depth is down to muscle. Right lateral foot ulceration measures 0.4 x 0.5 x 0.1 cm. Right second digit dorsally full-thickness ulceration measures 0.7 x 0.7 x 0.1 cm. All wound bases are granular nature with no sign of infection bilaterally. Musculoskeletal evidence of varus contracture to the right ankle secondary to tight posterior tibial tendon and anterior tibial tendon. Full range of motion of the knee without pain or crepitus. No pain to palpation to bilateral full-thickness ulcerations. No pain with calf compression bilateral. Debridement Note Debridement Note Post-Debridement Measurements and Additional Note: Post-Debridement Measurements/Treatment - Nurse 1 - General Ulcer Assessment Start: 10/14/23 09:01 Freq: Status: Active Protocol: [email or web address] Activity Type Activity Date Activity User E-sign Co-sign Detail Recorded Client Recorded Date Recorded By Document 10/14/23 09:10 KW Desktop 10/14/23 09:35 KW Document 10/21/23 09:15 KW Desktop 10/21/23 09:34 KW 10/14/23 10/21/23 09:10 09:15 - Today's Visit Information Type of service Initial Visit Follow-up Visit (Physician/MANAGER HEAVY DUTY ) Arrival Mode Wheelchair Wheelchair Transfer Assistance Jackelyn Lift Accompanied by nurse nurse Patient Identification Verified (Name & Yes Yes ) Finger Stick Blood Sugar(mg/dl) (if 144 indicated): Blood Sugar Stated by Patient Height and Weight Height 6 ft 3 in Weight 161.479 kg Weight in Pounds 356.0 lbs Weight Measurement Method Long Term Body Mass Index (BMI) 44.4 44.4 BMI Classification Obese Obese BSA - Seema 2.80 Vital Signs Temperature (97.8 F-99.1 F) 96.8 F L 97.3 F L Temperature Source Temporal Temporal Pulse Rate (60-100) 94 93 Pulse Location Monitor Monitor Respiratory Rate (12-18) 18 18 Respiratory rate source Observation Observation Oxygen Delivery Method Room Air Room Air Blood Pressure (90/60-120/80) 164/75 H 131/71 H Blood Pressure Mean (mm Hg) 104 91 Source Monitor Monitor Position Sitting Sitting Blood Pressure Location Left Forearm Left Arm History Since Last Visit- (Skip if this is Patient's initial visit) Have you changed medications since your No last visit? Any new allergies or adverse reactions No Had a fall/change in ADL's that may No increase risk of falls Signs or symptoms of abuse and/or No neglect since last visit Have you been in the hospital since your No last visit? Has dressing in place as prescribed Yes Has compression in place as prescribed Yes Has offloadiing in place as prescribed Yes Experienced any changes in pain level or No management Left Footwear No Footwear No Footwear Right Footwear No Footwear No Footwear Pain Scale: 0-10 Numeric Is Patient Pain Free? Yes Yes Communication Assessment Preferred language Romanian Clinical Leader Required No Able to Read Yes Able to Write Yes Communication Tools None Caregiver Communication Skills No Impairment Impairment Right Hearing Abillity Hard of Hearing Left Hearing Abillity Hard of Hearing Visual Assistive Devices None Teaching Assessment Preferences Verbal,Written, Demonstration Barriers to Learning None Readiness To Learn Excellent Willingness to Engage in Self Management High Activies Readiness to Engage in Self Management High Activities Anxiety Level Calm Cooperation Cooperative Perception Coherent Interest in Health Problem Asks Questions Education Importance Acknowledges Need Does Patient Smoke tobacco or other Yes substances Smoking Status Never smoker Is Patient Diabetic Yes Functional Assessment Recent Decline in Ability to Perform Ambulation, Bathing,Lower Body Dressing, Toileting, Transferring 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 Machine Fitter to contact place of congregational No WC - Nurse 1 - General Ulcer Measurement Start: 10/14/23 09:01 Freq: Status: Active Protocol: Activity Type Activity Date Activity User E-sign Co-sign Detail Recorded Client Recorded Date Recorded By Document 10/14/23 09:10 KW Desktop 10/14/23 09:35 KW Document 10/21/23 09:15 KW Desktop 10/21/23 09:34 KW 10/14/23 10/21/23 09:10 09:15 Wound Center Nurse 1 #2 RT GOODE -Current Size (cm) - Length 0.3 -Current Size (cm) - Width 0.2 -Current Size (cm) - Depth 0.1 -Total Square Cm 0.06 -Exudate Amt Small -Exudate Type Serosanguineous -Wound Margin Distinct, Outline Attached -Granulation Amt Large (67-100%) -Granulation Quality Red -Texture (Michell-wound Skin Appearance) Assessed -Moisture (Michell-wound Skin Appearance) Assessed -Color (Michell-wound Skin Appearance) Assessed, Hemosiderin Staining -Temperature (Michell-wound Skin No Abnormality Appearance) (Pt Warm) -Ulcer Cleansing Soap and Water -Foul Odor after Cleansing No -Anesthetic Used 5% Lidocaine Gel #6 RT 2ND TOE -Current Size (cm) - Length 0.5 0.1 -Current Size (cm) - Width 0.5 0.1 -Current Size (cm) - Depth 0.1 0.1 -Total Square Cm 0.25 0.01 -Exudate Amt Medium -Exudate Type Serosanguineous -Wound Margin Distinct, Outline Attached -Granulation Amt Large (67-100%) -Granulation Quality Red -Necrosis Amt Small (1-33%) -Necrotic Tissue Type Adherent Slough -Texture (Michell-wound Skin Appearance) Assessed Assessed -Moisture (Michell-wound Skin Appearance) Assessed Assessed -Color (Michell-wound Skin Appearance) Assessed Assessed -Temperature (Michell-wound Skin No Abnormality No Abnormality Appearance) (Pt Warm) (Pt Warm) -Tenderness on Palpation (Michell-wound No No Skin Appearance) -Ulcer Cleansing Soap and Water Soap and Water -Foul Odor after Cleansing No -Anesthetic Used 5% Lidocaine 5% Lidocaine Gel Gel #5 RT LAT FT -Current Size (cm) - Length 0.1 0.5 -Current Size (cm) - Width 0.1 0.4 -Current Size (cm) - Depth 0.1 0.1 -Total Square Cm 0.01 0.20 -Exudate Amt Small Small -Exudate Type Serosanguineous Serosanguineous -Wound Margin Distinct, Distinct, Outline Outline Attached Attached -Granulation Amt Large (67-100%) Medium (34-66%) -Granulation Quality [place] -Necrosis Amt Medium (34-66%) -Necrotic Tissue Type Adherent Slough -Texture (Michell-wound Skin Appearance) Assessed Assessed -Moisture (Michell-wound Skin Appearance) Assessed Assessed -Color (Michell-wound Skin Appearance) Assessed Assessed -Temperature (Michell-wound Skin No Abnormality No Abnormality Appearance) (Pt Warm) (Pt Warm) -Tenderness on Palpation (Michell-wound No No Skin Appearance) -Ulcer Cleansing Soap and Water Soap and Water -Foul Odor after Cleansing No -Anesthetic Used 5% Lidocaine 5% Lidocaine Gel Gel #4 RT LAT ANKLE -Current Size (cm) - Length 1 0.7 -Current Size (cm) - Width 0.8 0.5 -Current Size (cm) - Depth 0.3 0.3 -Total Square Cm 0.8 0.35 -Exudate Amt Small Small -Exudate Type Serosanguineous Serosanguineous -Wound Margin Distinct, Distinct, Outline Outline Attached Attached -Granulation Amt Large (67-100%) Large (67-100%) -Granulation Quality Red Red -Necrosis Amt Small (1-33%) Small (1-33%) -Necrotic Tissue Type Adherent Slough Adherent Slough -Texture (Michell-wound Skin Appearance) Assessed Assessed -Moisture (Michell-wound Skin Appearance) Assessed Assessed -Color (Michell-wound Skin Appearance) Assessed, Assessed Hemosiderin Staining -Temperature (Michell-wound Skin No Abnormality No Abnormality Appearance) (Pt Warm) (Pt Warm) -Tenderness on Palpation (Michell-wound No Skin Appearance) -Ulcer Cleansing Soap and Water Soap and Water -Foul Odor after Cleansing No -Anesthetic Used 5% Lidocaine 5% Lidocaine Gel Gel #3 RT LAT LEG CLUSTER -Current Size (cm) - Length 0.1 0.1 -Current Size (cm) - Width 0.1 0.1 -Current Size (cm) - Depth 0.1 0.1 -Total Square Cm 0.01 0.01 -Exudate Amt Small -Exudate Type Serosanguineous -Wound Margin Distinct, Outline Attached -Granulation Amt Large (67-100%) -Granulation Quality Red -Texture (Michell-wound Skin Appearance) Assessed Assessed -Moisture (Michell-wound Skin Appearance) Assessed Assessed -Color (Michell-wound Skin Appearance) Assessed Assessed -Temperature (Michell-wound Skin No Abnormality No Abnormality Appearance) (Pt Warm) (Pt Warm) -Tenderness on Palpation (Michell-wound No Skin Appearance) -Ulcer Cleansing Soap and Water Soap and Water -Anesthetic Used 5% Lidocaine Gel #1 LT STUMP -Current Size (cm) - Length 0.6 0.3 -Current Size (cm) - Width 0.6 0.2 -Current Size (cm) - Depth 3 2 -Total Square Cm 0.36 0.06 -Circular Undermining Yes -Exudate Amt Medium Medium -Exudate Type Serosanguineous Serosanguineous -Wound Margin Distinct, Distinct, Outline Outline Attached Attached -Granulation Amt Large (67-100%) Large (67-100%) -Granulation Quality [place] -Texture (Michell-wound Skin Appearance) Assessed Assessed -Moisture (Michell-wound Skin Appearance) Assessed Assessed -Color (Michell-wound Skin Appearance) Assessed Assessed -Temperature (Michell-wound Skin No Abnormality No Abnormality Appearance) (Pt Warm) (Pt Warm) -Tenderness on Palpation (Michell-wound No No Skin Appearance) -Ulcer Cleansing Soap and Water Soap and Water -Foul Odor after Cleansing No No -Anesthetic Used 5% Lidocaine 5% Lidocaine Gel Gel WC - Nurse 2 - General Ulcer CM Notes Start: 10/14/23 09:01 Freq: Status: Active Protocol: Activity Type Activity Date Activity User E-sign Co-sign Detail Recorded Client Recorded Date Recorded By Document 10/14/23 10:05 Laptop 10/14/23 10:16 JF Document 10/21/23 10:46 SALLY [id number] 10/21/23 10:47 JF 10/14/23 10/21/23 10:05 10:46 Wound Center Nurse 2 #2 RT GOODE -Correct Patient No -Correct Side, Site, Position No -Correct Procedure No -Procedure Performed No #6 RT 2ND TOE -Time 10:10 -Correct Patient Yes No -Correct Side, Site, Position Yes No -Correct Procedure Yes No -Procedure Performed Yes No -Type of Procedure Debridement -Clinical Debridement Subcutaneous -Tissue Removed Subcutaneous -Post Debridement (cm) - Length 0.7 -Post Debridement (cm) - Width 0.7 -Post Debridement (cm) - Depth 0.1 -Total Square (Post) (cm) 0.49 -Area of Debridement (cm) - Length 0.7 -Area of Debridement (cm) - Width 0.7 -Total Square (Area) (cm) 0.49 -Tunneling No -Undermining/Tunneling No -Circular Undermining No -Wound/Ulcer Outcome Not Healed Not Healed -Ulcer Cleansing Rinsed/ Irrigated with Saline -Foul Odor after Cleansing No -Bioengineered Tissue No -Bleeding Controlled with Pressure -Treatment Response Procedure Tolerated Well -Offloading No -Debridement - Subq, 1st 20sq cm No #5 RT LAT FT -Time 10:10 -Correct Patient Yes No -Correct Side, Site, Position Yes No -Correct Procedure Yes No -Procedure Performed Yes No -Type of Procedure Debridement -Clinical Debridement Subcutaneous -Tissue Removed Subcutaneous -Post Debridement (cm) - Length 0.4 -Post Debridement (cm) - Width 0.5 -Post Debridement (cm) - Depth 0.1 -Total Square (Post) (cm) 0.20 -Area of Debridement (cm) - Length 0.4 -Area of Debridement (cm) - Width 0.5 -Total Square (Area) (cm) 0.20 -Tunneling No -Undermining/Tunneling No -Circular Undermining No -Wound/Ulcer Outcome Not Healed Not Healed -Ulcer Cleansing Rinsed/ Irrigated with Saline -Foul Odor after Cleansing No -Bioengineered Tissue No -Bleeding Controlled with Pressure -Treatment Response Procedure Tolerated Well -Offloading No -Debridement - Subq, 1st 20sq cm No #4 RT LAT ANKLE -Time 10:11 -Correct Patient Yes No -Correct Side, Site, Position Yes No -Correct Procedure Yes No -Procedure Performed Yes No -Type of Procedure Debridement -Clinical Debridement Muscle / Fascia -Tissue Removed Muscle,Fascia -Post Debridement (cm) - Length 0.9 -Post Debridement (cm) - Width 0.8 -Post Debridement (cm) - Depth 0.2 -Total Square (Post) (cm) 0.72 -Area of Debridement (cm) - Length 0.9 -Area of Debridement (cm) - Width 0.8 -Total Square (Area) (cm) 0.72 -Tunneling No -Undermining/Tunneling No -Circular Undermining No -Wound/Ulcer Outcome Not Healed Not Healed -Ulcer Cleansing Rinsed/ Irrigated with Saline -Foul Odor after Cleansing No -Bioengineered Tissue No -Bleeding Controlled with Pressure -Treatment Response Procedure Tolerated Well -Offloading No -Debridement - Subq, 1st 20sq cm No -Debridement - Muscle / Fascia, 1st Yes 20sq cm #3 RT LAT LEG CLUSTER -Time 10:11 -Correct Patient Yes No -Correct Side, Site, Position Yes No -Correct Procedure Yes No -Procedure Performed Yes No -Type of Procedure Debridement -Clinical Debridement Subcutaneous -Tissue Removed Subcutaneous -Post Debridement (cm) - Length 0.3 -Post Debridement (cm) - Width 0.4 -Post Debridement (cm) - Depth 0.1 -Total Square (Post) (cm) 0.12 -Area of Debridement (cm) - Length 0.3 -Area of Debridement (cm) - Width 0.4 -Total Square (Area) (cm) 0.12 -Tunneling No -Undermining/Tunneling No -Circular Undermining No -Wound/Ulcer Outcome Not Healed Not Healed -Ulcer Cleansing Rinsed/ Irrigated with Saline -Bioengineered Tissue No -Bleeding Controlled with Pressure -Treatment Response Procedure Tolerated Well -Offloading No -Debridement - Subq, 1st 20sq cm No #1 LT STUMP -Time 10:12 -Correct Patient Yes No -Correct Side, Site, Position Yes No -Correct Procedure Yes No -Procedure Performed Yes No -Type of Procedure Debridement -Clinical Debridement Subcutaneous -Tissue Removed Dermis -Post Debridement (cm) - Length 0.3 -Post Debridement (cm) - Width 0.3 -Post Debridement (cm) - Depth 2.2 -Total Square (Post) (cm) 0.09 -Area of Debridement (cm) - Length 0.3 -Area of Debridement (cm) - Width 0.3 -Total Square (Area) (cm) 0.09 -Tunneling No -Undermining/Tunneling No -Circular Undermining No -Wound/Ulcer Outcome Not Healed Not Healed -Ulcer Cleansing Rinsed/ Irrigated with Saline -Foul Odor after Cleansing No -Bioengineered Tissue No -Bleeding Controlled with Pressure -Treatment Response Procedure Tolerated Well -Offloading No -Debridement - Subq, 1st 20sq cm Yes Pain Scale: 0-10 Numeric Is Patient Pain Free? Yes Yes WC - Nurse 3 - General Ulcer D/C NN Start: 10/14/23 09:01 Freq: Status: Active Protocol: Activity Type Activity Date Activity User E-sign Co-sign Detail Recorded Client Recorded Date Recorded By Document 10/14/23 10:50 KW Desktop 10/14/23 10:51 KW Document 10/21/23 10:47 JF [id number] 10/21/23 10:49 JF 10/14/23 10/21/23 10:50 10:47 Wound Care Center Nurse 3 #6 RT 2ND TOE -Foul Odor after Cleansing No -Primary Dressing Applied Promogran Rafaela Matter -Other Dressing betadine -Primary Dressing Covered/Secured with Dry Gauze,Dry Dry Gauze,Dry Gauze & Roll Gauze & Roll Gauze,Secured Gauze with Tape -Promogran Rafaela Matter 1 #5 RT LAT FT -Foul Odor after Cleansing No -Other Dressing betadine -Primary Dressing Covered/Secured with Dry Gauze Dry Gauze & Roll Gauze #4 RT LAT ANKLE -Foul Odor after Cleansing No -Other Dressing betadine -Primary Dressing Covered/Secured with Dry Gauze Dry Gauze & Roll Gauze, Secured with Tape #3 RT LAT LEG CLUSTER -Foul Odor after Cleansing No -Other Dressing betadine -Primary Dressing Covered/Secured with Dry Gauze Dry Gauze & Roll Gauze, Secured with Tape #1 LT STUMP -Foul Odor after Cleansing No -Primary Dressing Applied Nugauze, Iodoform 1/4in -Other Dressing betadine -Primary Dressing Covered/Secured with Dry Gauze & Dry Gauze & Roll Gauze, Roll Gauze, Secured with Secured with Tape Tape -Nugauze, Iodoform 1/4in 1 Left -Tubular Bandage Single Layer -Size of Tubigrip Used Size E -Size E ($) 1 Right -Tubular Bandage Single Layer -Size of Tubigrip Used Size E -Size E ($) 1 Pain Scale: 0-10 Numeric Is Patient Pain Free? Yes Yes WC - Visit Discharge Discharge Condition Stable Stable Ambulatory Status Wheelchair Wheelchair Accompanied by NURSE transfer to ER Medication Reconcilliation completed & No No provided to patient/care provider Clinical Summary of Care Provided Yes No Assessment/Plan Assessment/Plan (1) Abscess of left leg: CODE(S): L02.416 - Cutaneous abscess of left lower limb PLAN: Patient was examined and evaluated. All findings were discussed with the patient. All questions were answered to the patient's satisfaction. After physical examination and review of the patient's MRI to the left lower extremity. It was deemed necessary to send the patient over to the emergency room for evaluation and possible admission. The patient show evidence of multiple abscesses to the left below-knee amputation stump. The patient did not have any constitutional symptoms during today's visit. After review of the emergency room physicians documentation the patient was seen and evaluated and eventually transferred out to the surgeon who performed the below the knee amputation. The emergency room physician spoke with Dr. Ramon who originally did the surgery for the left below-knee amputation stump and is excepting the patient via transfer. The patient can follow back up with Dr. Sarah at the wound care center when treated and discharged from the facility he is transferred. 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
[2023-10-28 09:15] VITALS: BP 142/73; PULSE 97; RESP 18; TEMP 36; BMI 44.4
--- NOTE | 2023-10-28 10:59 | PN.PCM_ITS ---
History of Present Illness Date of Service: 10/28/23 Chief Complaint: Bilateral leg wounds. History of Wound: By leg wounds. Progress of Wound: Mr. 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 Patient was seen by an outside provider/orthopedic surgeon who performed below-knee amputation to left lower extremity. 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 Patient has been on oral antibiotics with limited success on healing to the wound on the left stump site. Patient also has multiple full- thickness ulcerations to the right lower extremity secondary to increased pressure with AFO brace and contracture at the level of the ankle. Patient is nonambulatory at this time secondary to low knee amputation to left lower extremity. He is able to transfer and move around in a wheelchair. He denies any trauma. He admits to a wide range of blood sugar readings from 100 to 300 mg/dL. He does admit that he is more stable at the half-way facility. He denies any trauma. Subjective Subjective Mr. Olivares is a diabetic 78-year-old male presenting to the wound care center today to follow-up on evaluation of right full-thickness ulceration and full- thickness ulceration to the BKA stump of the left lower extremity. Patient was seen during his time in clinic last week presented to the emergency department for concern of abscess to the BKA stump was eventually transferred out to [facility] where he was under the care of Dr. Ramon. Dr. Ramon did see and reviewed the patient's medical record and believe that the abscess collection was more fluid and no surgical intervention was obtained. The patient was treated while at [facility] and was on IV antibiotics the whole time he was admitted to the hospital. He denies any trauma. Denies constitutional symptoms. No other pedal complaints at this time. Objective Data Objective Data Vital Signs: Vital Signs Temp Pulse Resp BP O2 Del Method 96.8 F L 97 18 142/73 H Room Air 10/28/23 09:15 10/28/23 09:15 10/28/23 09:15 10/28/23 09:15 10/28/23 09:15 Oxygen Delivery Method Room Air Weight: 161.479 kg Body Mass Index (BMI) 44.4 Physical Exam Narrative Vascular: DP and PT pulses are nonpalpable to the right lower extremity. DP and PT pulses on Doppler are biphasic. 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 Skin temp great is warm to warm from proximal ankle to distal digits to the right lower extremity. Skin temperature gradient is warm to cool to the need to the BKA stump to left lower extremity. No focal increase appreciated. Neurological: Light touch intact. Protective sentation is diminished. Dermatological: Full-thickness ulceration which is a tunneling wound of the left BKA stump, healed. Right leg cluster full-thickness ulceration, healed. Right ankle laterally full-thickness ulceration measures 0.9 x 0.9 x 0.3 cm. Wound depth is down to muscle. Right lateral foot ulceration, healed. Right second digit dorsally full-thickness ulceration measures 0.7 x 0.7 x 0.1 cm. All wound bases are granular nature with no sign of infection bilaterally. Excisional debridement down to and including subcutaneous tissue fascia and muscle of the right lateral ankle full-thickness ulceration with a number 3 mm dermal curette without incident. Predebridement measurement was 0.8 x 0.6 x 0.2 cm. Postdebridement measurement is 0.9 x 0.9 x 0.3 cm. Excisional debridement down to and including subcutaneous tissue of the dorsal second digit on the right foot with a number 3 mm dermal curette without incident. Predebridement measurement was eschar. Postdebridement measurement is 0.7 x 0.7 0.1 cm. Musculoskeletal evidence of varus contracture to the right ankle secondary to tight posterior tibial tendon and anterior tibial tendon. Full range of motion of the knee without pain or crepitus. No pain to palpation to bilateral full- thickness ulcerations. No pain with calf compression bilateral. Debridement Note Debridement Note Debridement Free Text: Excisional debridement down to and including subcutaneous tissue fascia and muscle of the right lateral ankle full-thickness ulceration with a number 3 mm dermal curette without incident. Predebridement measurement was 0.8 x 0.6 x 0.2 cm. Postdebridement measurement is 0.9 x 0.9 x 0.3 cm. Excisional debridement down to and including subcutaneous tissue of the dorsal second digit on the right foot with a number 3 mm dermal curette without incident. Predebridement measurement was eschar. Postdebridement measurement is 0.7 x 0.7 0.1 cm. Post-Debridement Measurements and Additional Note: Post-Debridement Measurements/Treatment WC - Nurse 1 - General Ulcer Assessment Start: 10/14/23 09:01 Freq: Status: Active Protocol: FABIENNE Activity Type Activity Date Activity User E-sign Co-sign Detail Recorded Client Recorded Date Recorded By Document 10/14/23 09:10 KW Desktop 10/14/23 09:35 KW Document 10/21/23 09:15 KW Desktop 10/21/23 09:34 KW Document 10/28/23 09:15 KW [id number] 10/28/23 09:25 KW 10/14/23 10/21/23 10/28/23 09:10 09:15 09:15 WC - Today's Visit Information Type of service Initial Visit Follow-up Visit Follow-up Visit (Physician/SPECIALIST FIELD ENGINEER (Physician/SPECIALIST FIELD ENGINEER ) ) Arrival Mode Wheelchair Wheelchair Wheelchair Transfer Assistance Jackelyn Lift Accompanied by nurse nurse Patient Identification Verified (Name & Yes Yes Yes ) Finger Stick Blood Sugar(mg/dl) (if 144 indicated): Blood Sugar Stated by Patient Height and Weight Height 6 ft 3 in Weight 161.479 kg Weight in Pounds 356.0 lbs Weight Measurement Method Care Home Body Mass Index (BMI) 44.4 44.4 44.4 BMI Classification Obese Obese Obese BSA - Seema 2.80 Vital Signs Temperature (97.8 F-99.1 F) 96.8 F L 97.3 F L 96.8 F L Temperature Source Temporal Temporal Temporal Pulse Rate (60-100) 94 93 97 Pulse Location Monitor Monitor Apical Respiratory Rate (12-18) 18 18 18 Respiratory rate source Observation Observation Observation Oxygen Delivery Method Room Air Room Air Room Air Blood Pressure (90/60-120/80) 164/75 H 131/71 H 142/73 H Blood Pressure Mean (mm Hg) 104 91 96 Source Monitor Monitor Monitor Position Sitting Sitting Sitting Blood Pressure Location Left Forearm Left Arm Right Arm History Since Last Visit- (Skip if this is Patient's initial visit) Have you changed medications since your No No last visit? Any new allergies or adverse reactions No No Had a fall/change in ADL's that may No No increase risk of falls Signs or symptoms of abuse and/or No No neglect since last visit Have you been in the hospital since your No No last visit? Has dressing in place as prescribed Yes Yes Has compression in place as prescribed Yes N/A Has offloadiing in place as prescribed Yes Yes Experienced any changes in pain level or No No management Left Footwear No Footwear No Footwear Right Footwear No Footwear No Footwear Pain Scale: 0-10 Numeric Is Patient Pain Free? Yes Yes Yes Communication Assessment Preferred language Bel[place] Drag Down Required No Able to Read Yes Able to Write Yes Communication Tools None Caregiver Communication Skills No Impairment Impairment Right Hearing Abillity Hard of Hearing Left Hearing Abillity Hard of Hearing Visual Assistive Devices None Teaching Assessment Preferences Verbal,Written, Demonstration Barriers to Learning None Readiness To Learn Excellent Willingness to Engage in Self Management High Activies Readiness to Engage in Self Management High Activities Anxiety Level Calm Cooperation Cooperative Perception Coherent Interest in Health Problem Asks Questions Education Importance Acknowledges Need Does Patient Smoke tobacco or other Yes substances Smoking Status Never smoker Is Patient Diabetic Yes Functional Assessment Recent Decline in Ability to Perform Ambulation, Bathing,Lower Body Dressing, Toileting, Transferring Culture/Jehovah'S Witness/Engineer Internship Cultural/Jehovah'S Witness Needs that may affect No Treatment Plan Would you allow our hospital stuntman to No meet you for the purpose of spiritual/ emotional support? Engineer Internship to contact place of yazidi No WC - Nurse 1 - General Ulcer Measurement Start: 10/14/23 09:01 Freq: Status: Active Protocol: Activity Type Activity Date Activity User E-sign Co-sign Detail Recorded Client Recorded Date Recorded By Document 10/14/23 09:10 KW Desktop 10/14/23 09:35 KW Document 10/21/23 09:15 KW Desktop 10/21/23 09:34 KW Document 10/28/23 09:15 KW [id number] 10/28/23 09:25 KW 10/14/23 10/21/23 10/28/23 09:10 09:15 09:15 Wound Center Nurse 1 #5 RT LAT FT -Current Size (cm) - Length 0.1 0.5 -Current Size (cm) - Width 0.1 0.4 -Current Size (cm) - Depth 0.1 0.1 -Total Square Cm 0.01 0.20 -Exudate Amt Small Small -Exudate Type Serosanguineous Serosanguineous -Wound Margin Distinct, Distinct, Outline Outline Attached Attached -Granulation Amt Large (67-100%) Medium (34-66%) -Granulation Quality [place] -Necrosis Amt Medium (34-66%) -Necrotic Tissue Type Adherent Slough -Texture (Michell-wound Skin Appearance) Assessed Assessed -Moisture (Michell-wound Skin Appearance) Assessed Assessed -Color (Michell-wound Skin Appearance) Assessed Assessed -Temperature (Michell-wound Skin No Abnormality No Abnormality Appearance) (Pt Warm) (Pt Warm) -Tenderness on Palpation (Michell-wound No No Skin Appearance) -Ulcer Cleansing Soap and Water Soap and Water -Foul Odor after Cleansing No -Anesthetic Used 5% Lidocaine 5% Lidocaine Gel Gel #3 RT LAT LEG CLUSTER -Current Size (cm) - Length 0.1 0.1 -Current Size (cm) - Width 0.1 0.1 -Current Size (cm) - Depth 0.1 0.1 -Total Square Cm 0.01 0.01 -Exudate Amt Small -Exudate Type Serosanguineous -Wound Margin Distinct, Outline Attached -Granulation Amt Large (67-100%) -Granulation Quality Red -Texture (Michell-wound Skin Appearance) Assessed Assessed -Moisture (Michell-wound Skin Appearance) Assessed Assessed -Color (Michell-wound Skin Appearance) Assessed Assessed -Temperature (Michell-wound Skin No Abnormality No Abnormality Appearance) (Pt Warm) (Pt Warm) -Tenderness on Palpation (Michell-wound No Skin Appearance) -Ulcer Cleansing Soap and Water Soap and Water -Anesthetic Used 5% Lidocaine Gel #2 RT GOODE -Current Size (cm) - Length 0.3 -Current Size (cm) - Width 0.2 -Current Size (cm) - Depth 0.1 -Total Square Cm 0.06 -Exudate Amt Small -Exudate Type Serosanguineous -Wound Margin Distinct, Outline Attached -Granulation Amt Large (67-100%) -Granulation Quality Red -Texture (Michell-wound Skin Appearance) Assessed -Moisture (Michell-wound Skin Appearance) Assessed -Color (Michell-wound Skin Appearance) Assessed, Hemosiderin Staining -Temperature (Michell-wound Skin No Abnormality Appearance) (Pt Warm) -Ulcer Cleansing Soap and Water -Foul Odor after Cleansing No -Anesthetic Used 5% Lidocaine Gel #1 LT STUMP -Current Size (cm) - Length 0.6 0.3 0.1 -Current Size (cm) - Width 0.6 0.2 0.1 -Current Size (cm) - Depth 3 2 0.1 -Total Square Cm 0.36 0.06 0.01 -Circular Undermining Yes -Exudate Amt Medium Medium -Exudate Type Serosanguineous Serosanguineous -Wound Margin Distinct, Distinct, Outline Outline Attached Attached -Granulation Amt Large (67-100%) Large (67-100%) -Granulation Quality [place] -Texture (Michell-wound Skin Appearance) Assessed Assessed Assessed -Moisture (Michell-wound Skin Appearance) Assessed Assessed Assessed -Color (Michell-wound Skin Appearance) Assessed Assessed Assessed -Temperature (Michell-wound Skin No Abnormality No Abnormality No Abnormality Appearance) (Pt Warm) (Pt Warm) (Pt Warm) -Tenderness on Palpation (Michell-wound No No No Skin Appearance) -Ulcer Cleansing Soap and Water Soap and Water Rinsed/ Irrigated with Saline -Foul Odor after Cleansing No No No -Anesthetic Used 5% Lidocaine 5% Lidocaine 5% Lidocaine Gel Gel Gel -Wound Comment(s) scabbed #6 RT 2ND TOE -Current Size (cm) - Length 0.5 0.1 0.1 -Current Size (cm) - Width 0.5 0.1 0.1 -Current Size (cm) - Depth 0.1 0.1 1 -Total Square Cm 0.25 0.01 0.01 -Exudate Amt Medium -Exudate Type Serosanguineous -Wound Margin Distinct, Outline Attached -Granulation Amt Large (67-100%) -Granulation Quality Red -Necrosis Amt Small (1-33%) -Necrotic Tissue Type Adherent Slough -Texture (Michell-wound Skin Appearance) Assessed Assessed -Moisture (Michell-wound Skin Appearance) Assessed Assessed -Color (Michell-wound Skin Appearance) Assessed Assessed -Temperature (Michell-wound Skin No Abnormality No Abnormality Appearance) (Pt Warm) (Pt Warm) -Tenderness on Palpation (Michell-wound No No Skin Appearance) -Ulcer Cleansing Soap and Water Soap and Water -Foul Odor after Cleansing No -Anesthetic Used 5% Lidocaine 5% Lidocaine Gel Gel -Wound Comment(s) scabbed #4 RT LAT ANKLE -Current Size (cm) - Length 1 0.7 0.8 -Current Size (cm) - Width 0.8 0.5 0.6 -Current Size (cm) - Depth 0.3 0.3 0.3 -Total Square Cm 0.8 0.35 0.48 -Exudate Amt Small Small Small -Exudate Type Serosanguineous Serosanguineous Serosanguineous -Wound Margin Distinct, Distinct, Distinct, Outline Outline Outline Attached Attached Attached -Granulation Amt Large (67-100%) Large (67-100%) Large (67-100%) -Granulation Quality Red Red Red -Necrosis Amt Small (1-33%) Small (1-33%) Small (1-33%) -Necrotic Tissue Type Adherent Slough Adherent Slough Adherent Slough -Texture (Michell-wound Skin Appearance) Assessed Assessed Assessed -Moisture (Michell-wound Skin Appearance) Assessed Assessed Assessed -Color (Michell-wound Skin Appearance) Assessed, Assessed Assessed Hemosiderin Staining -Temperature (Michell-wound Skin No Abnormality No Abnormality No Abnormality Appearance) (Pt Warm) (Pt Warm) (Pt Warm) -Tenderness on Palpation (Michell-wound No No Skin Appearance) -Ulcer Cleansing Soap and Water Soap and Water Rinsed/ Irrigated with Saline -Foul Odor after Cleansing No No -Anesthetic Used 5% Lidocaine 5% Lidocaine 5% Lidocaine Gel Gel Gel WC - Nurse 2 - General Ulcer CM Notes Start: 10/14/23 09:01 Freq: Status: Active Protocol: Activity Type Activity Date Activity User E-sign Co-sign Detail Recorded Client Recorded Date Recorded By Document 10/14/23 10:05 Laptop 10/14/23 10:16 Document 10/21/23 10:46 [id number] 10/21/23 10:47 Document 10/28/23 09:41 [place] [id number] 10/28/23 09:43 DS Edit Result 10/28/23 09:41 DS (1) [id number] 10/28/23 09:44 DS Edit Result 10/28/23 09:41 DS (2) [id number] 10/28/23 10:12 DS (1) #6 RT 2ND TOE - Time => 09:43 - Correct Patient => Yes - Correct Side, Site, Position => Yes - Correct Procedure => Yes - Procedure Performed => Yes - Type of Procedure => Debridement - Clinical Debridement => Muscle / Fascia - Tissue Removed => Muscle - Post Debridement (cm) - Length => 0.7 - Post Debridement (cm) - Width => 0.7 - Post Debridement (cm) - Depth => 0.1 - Total Square (Post) (cm) => 0.49 - Area of Debridement (cm) - Length => 0.7 - Area of Debridement (cm) - Width => 0.7 - Total Square (Area) (cm) => 0.49 - Tunneling => No - Undermining/Tunneling => No - Circular Undermining => No - Wound/Ulcer Outcome => Not Healed - Ulcer Cleansing => Rinsed/Irrigated => with Saline - Bleeding Controlled with => Pressure,Silver => Nitrate - Treatment Response => Procedure => Tolerated Well - Debridement - Muscle / Fascia, 1st => Yes 20sq cm (2) #6 RT 2ND TOE - Clinical Debridement Muscle / Fascia => Subcutaneous - Tissue Removed Muscle => Subcutaneous - Debridement - Subq, 1st 20sq cm => No - Debridement - Muscle / Fascia, 1st Yes => 20sq cm #4 RT LAT ANKLE - Clinical Debridement Subcutaneous => Muscle / Fascia - Tissue Removed => Muscle - Debridement - Subq, 1st 20sq cm No => - Debridement - Muscle / Fascia, 1st => Yes 20sq cm 10/14/23 10/21/23 10/28/23 10:05 10:46 09:41 Wound Center Nurse 2 #5 RT LAT FT -Time 10:10 -Correct Patient Yes No -Correct Side, Site, Position Yes No -Correct Procedure Yes No -Procedure Performed Yes No -Type of Procedure Debridement -Clinical Debridement Subcutaneous -Tissue Removed Subcutaneous -Post Debridement (cm) - Length 0.4 -Post Debridement (cm) - Width 0.5 -Post Debridement (cm) - Depth 0.1 -Total Square (Post) (cm) 0.20 -Area of Debridement (cm) - Length 0.4 -Area of Debridement (cm) - Width 0.5 -Total Square (Area) (cm) 0.20 -Tunneling No -Undermining/Tunneling No -Circular Undermining No -Wound/Ulcer Outcome Not Healed Not Healed -Ulcer Cleansing Rinsed/ Irrigated with Saline -Foul Odor after Cleansing No -Bioengineered Tissue No -Bleeding Controlled with Pressure -Treatment Response Procedure Tolerated Well -Offloading No -Debridement - Subq, 1st 20sq cm No #3 RT LAT LEG CLUSTER -Time 10:11 -Correct Patient Yes No -Correct Side, Site, Position Yes No -Correct Procedure Yes No -Procedure Performed Yes No -Type of Procedure Debridement -Clinical Debridement Subcutaneous -Tissue Removed Subcutaneous -Post Debridement (cm) - Length 0.3 -Post Debridement (cm) - Width 0.4 -Post Debridement (cm) - Depth 0.1 -Total Square (Post) (cm) 0.12 -Area of Debridement (cm) - Length 0.3 -Area of Debridement (cm) - Width 0.4 -Total Square (Area) (cm) 0.12 -Tunneling No -Undermining/Tunneling No -Circular Undermining No -Wound/Ulcer Outcome Not Healed Not Healed -Ulcer Cleansing Rinsed/ Irrigated with Saline -Bioengineered Tissue No -Bleeding Controlled with Pressure -Treatment Response Procedure Tolerated Well -Offloading No -Debridement - Subq, 1st 20sq cm No #2 RT GOODE -Correct Patient No -Correct Side, Site, Position No -Correct Procedure No -Procedure Performed No #1 LT STUMP -Time 10:12 -Correct Patient Yes No No -Correct Side, Site, Position Yes No No -Correct Procedure Yes No No -Procedure Performed Yes No No -Type of Procedure Debridement -Clinical Debridement Subcutaneous -Tissue Removed Dermis -Post Debridement (cm) - Length 0.3 -Post Debridement (cm) - Width 0.3 -Post Debridement (cm) - Depth 2.2 -Total Square (Post) (cm) 0.09 -Area of Debridement (cm) - Length 0.3 -Area of Debridement (cm) - Width 0.3 -Total Square (Area) (cm) 0.09 -Tunneling No -Undermining/Tunneling No -Circular Undermining No -Wound/Ulcer Outcome Not Healed Not Healed Healed- Epithelialized -Ulcer Cleansing Rinsed/ Irrigated with Saline -Foul Odor after Cleansing No -Bioengineered Tissue No -Bleeding Controlled with Pressure -Treatment Response Procedure Tolerated Well -Offloading No -Debridement - Subq, 1st 20sq cm Yes #6 RT 2ND TOE -Time 10:10 09:43 -Correct Patient Yes No Yes -Correct Side, Site, Position Yes No Yes -Correct Procedure Yes No Yes -Procedure Performed Yes No Yes -Type of Procedure Debridement Debridement -Clinical Debridement Subcutaneous Subcutaneous -Tissue Removed Subcutaneous Subcutaneous -Post Debridement (cm) - Length 0.7 0.7 -Post Debridement (cm) - Width 0.7 0.7 -Post Debridement (cm) - Depth 0.1 0.1 -Total Square (Post) (cm) 0.49 0.49 -Area of Debridement (cm) - Length 0.7 0.7 -Area of Debridement (cm) - Width 0.7 0.7 -Total Square (Area) (cm) 0.49 0.49 -Tunneling No No -Undermining/Tunneling No No -Circular Undermining No No -Wound/Ulcer Outcome Not Healed Not Healed Not Healed -Ulcer Cleansing Rinsed/ Rinsed/ Irrigated with Irrigated with Saline Saline -Foul Odor after Cleansing No -Bioengineered Tissue No -Bleeding Controlled with Pressure Pressure,Silver Nitrate -Treatment Response Procedure Procedure Tolerated Well Tolerated Well -Offloading No -Debridement - Subq, 1st 20sq cm No No #4 RT LAT ANKLE -Time 10:11 09:42 -Correct Patient Yes No Yes -Correct Side, Site, Position Yes No Yes -Correct Procedure Yes No Yes -Procedure Performed Yes No Yes -Type of Procedure Debridement Debridement -Clinical Debridement Muscle / Fascia Muscle / Fascia -Tissue Removed Muscle,Fascia Muscle -Post Debridement (cm) - Length 0.9 0.9 -Post Debridement (cm) - Width 0.8 0.9 -Post Debridement (cm) - Depth 0.2 0.3 -Total Square (Post) (cm) 0.72 0.81 -Area of Debridement (cm) - Length 0.9 0.9 -Area of Debridement (cm) - Width 0.8 0.9 -Total Square (Area) (cm) 0.72 0.81 -Tunneling No No -Undermining/Tunneling No No -Circular Undermining No No -Wound/Ulcer Outcome Not Healed Not Healed Not Healed -Ulcer Cleansing Rinsed/ Rinsed/ Irrigated with Irrigated with Saline Saline -Foul Odor after Cleansing No -Bioengineered Tissue No -Bleeding Controlled with Pressure Pressure -Treatment Response Procedure Procedure Tolerated Well Tolerated Well -Offloading No -Debridement - Subq, 1st 20sq cm No -Debridement - Muscle / Fascia, 1st Yes Yes 20sq cm Pain Scale: 0-10 Numeric Is Patient Pain Free? Yes Yes Yes WC - Nurse 3 - General Ulcer D/C NN Start: 10/14/23 09:01 Freq: Status: Active Protocol: Activity Type Activity Date Activity User E-sign Co-sign Detail Recorded Client Recorded Date Recorded By Document 10/14/23 10:50 KW Desktop 10/14/23 10:51 KW Document 10/21/23 10:47 SALLY [id number] 10/21/23 10:49 Document 10/28/23 10:05 [id number] 10/28/23 10:07 10/14/23 10/21/23 10/28/23 10:50 10:47 10:05 Wound Care Center Nurse 3 #5 RT LAT FT -Foul Odor after Cleansing No -Other Dressing betadine -Primary Dressing Covered/Secured with Dry Gauze Dry Gauze & Roll Gauze #3 RT LAT LEG CLUSTER -Foul Odor after Cleansing No -Other Dressing betadine -Primary Dressing Covered/Secured with Dry Gauze Dry Gauze & Roll Gauze, Secured with Tape #1 LT STUMP -Foul Odor after Cleansing No -Primary Dressing Applied Nugauze, Iodoform 1/4in -Other Dressing betadine -Primary Dressing Covered/Secured with Dry Gauze & Dry Gauze & Roll Gauze, Roll Gauze, Secured with Secured with Tape Tape -Nugauze, Iodoform 1/4in 1 #6 RT 2ND TOE -Ulcer Cleansing Not Cleansed -Foul Odor after Cleansing No No -Primary Dressing Applied Promogran Rafaela Matter -Other Dressing betadine -Primary Dressing Covered/Secured with Dry Gauze,Dry Dry Gauze,Dry Dry Gauze,Dry Gauze & Roll Gauze & Roll Gauze & Roll Gauze,Secured Gauze Gauze,Secured with Tape with Tape -Promogran Rafaela Matter 1 #4 RT LAT ANKLE -Ulcer Cleansing Not Cleansed -Foul Odor after Cleansing No No -Primary Dressing Applied Promogran Rafaela Matter -Other Dressing betadine -Primary Dressing Covered/Secured with Dry Gauze Dry Gauze & Dry Gauze & Roll Gauze, Roll Gauze, Secured with Secured with Tape Tape -Promogran Rafaela Matter 1 Left -Lotion applied to leg before No compression wrap -Tubular Bandage Single Layer Single Layer -Size of Tubigrip Used Size E Size E -Size E ($) 1 1 Right -Lotion applied to leg before No compression wrap -Tubular Bandage Single Layer Single Layer -Size of Tubigrip Used Size E Size E -Size E ($) 1 1 Pain Scale: 0-10 Numeric Is Patient Pain Free? Yes Yes Yes Teaching: Wound Center dressing wound -Person Taught Patient -Teaching Method Discussion -Response to teaching Verbalize understanding WC - Visit Discharge Discharge Condition Stable Stable Stable Ambulatory Status Wheelchair Wheelchair Wheelchair Transportation Private Auto Accompanied by NURSE transfer to ER Medication Reconcilliation completed & No No provided to patient/care provider Clinical Summary of Care Provided Yes No Yes Assessment/Plan Assessment/Plan (1) Non-pressure chronic ulcer of right ankle with necrosis of muscle: CODE(S): L97.313 - Non-pressure chronic ulcer of right ankle with necrosis of muscle PLAN: Patient was examined and evaluated. All findings were discussed with the patient. All questions were answered to the patient's satisfaction. Excisional debridement down to and including subcutaneous tissue fascia and muscle of the right lateral ankle full-thickness ulceration with a number 3 mm dermal curette without incident. Predebridement measurement was 0.8 x 0.6 x 0.2 cm. Postdebridement measurement is 0.9 x 0.9 x 0.3 cm. Excisional debridement down to and including subcutaneous tissue of the dorsal second digit on the right foot with a number 3 mm dermal curette without incident. Predebridement measurement was eschar. Postdebridement measurement is 0.7 x 0.7 0.1 cm. Right lower extremities were cleaned and patted dry. The lateral ankle ulceration was dressed with moist Rafaela and dry sterile dressing and Armaan bandage. The second digit was dressed with Betadine paint and sterile Band-Aid. A compression wrap/Tubigrip was placed on the left BKA site. Educated the patient to continue to work with physical therapy and continue to have strict blood sugar control and weight loss. He was understanding of this. Educated patient continue to offload the bilateral lower extremity which she was also understanding of. Follow-up at the wound care center with Dr. Sarah in 1 week. (2) Non-pressure chronic ulcer of other part of right foot with fat layer exposed: CODE(S): L97.512 - Non-pressure chronic ulcer of other part of right foot with fat layer exposed (3) Other specified peripheral vascular diseases: CODE(S): I73.89 - Other specified peripheral vascular diseases
[2023-11-04 09:02] VITALS: BP 142/68; PULSE 114; RESP 18; TEMP 35.6; BMI 44.4
--- NOTE | 2023-11-04 10:10 | PCM.WC.PN ---
History of Present Illness Date of Service: 11/04/23 Chief Complaint: Bilateral leg wounds. History of Wound: By leg wounds. Progress of Wound: Mr. 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 Patient was seen by an outside provider/orthopedic surgeon who performed below-knee amputation to left lower extremity. 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 Patient has been on oral antibiotics with limited success on healing to the wound on the left stump site. Patient also has multiple full-thickness ulcerations to the right lower extremity secondary to increased pressure with AFO brace and contracture at the level of the ankle. Patient is nonambulatory at this time secondary to low knee amputation to left lower extremity. He is able to transfer and move around in a wheelchair. He denies any trauma. He admits to a wide range of blood sugar readings from 100 to 300 mg/dL. He does admit that he is more stable at the assisted facility. He denies any trauma. Subjective Subjective Mr. Olivares is a 78-year-old diabetic male presenting to the wound care center today follow-up evaluation of full-thickness ulceration to right leg. Patient has been using compression wrap to the left lower extremity BKA stump. Patient has been getting dressing changes to the right lower extremity. He has kept his blood sugar under control. He has been doing minimal activity. He has not lost any weight per our last visit. Per the patient's caregivers they state he is getting double portion of food. He denies trauma. Denies constitutional symptoms. No other pedal complaints at this time. Objective Data Objective Data Vital Signs: Vital Signs Temp Pulse Resp BP O2 Del Method 96.0 F L 114 H 18 142/68 H Room Air 11/04/23 09:02 11/04/23 09:02 11/04/23 09:02 11/04/23 09:02 11/04/23 09:02 Oxygen Delivery Method Room Air Weight: 161.479 kg Body Mass Index (BMI) 44.4 Physical Exam Narrative Vascular: DP and PT pulses are nonpalpable to the right lower extremity. DP and PT pulses on Doppler are biphasic. 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 Skin temp great is warm to warm from proximal ankle to distal digits to the right lower extremity. Skin temperature gradient is warm to cool to the need to the BKA stump to left lower extremity. No focal increase appreciated. Neurological: Light touch intact. Protective sentation is diminished. Dermatological: Full-thickness ulceration to the right lateral ankle measuring 1.0 x 1.0 x 0.3 cm. Full-thickness ulceration to the right second digit is stable with eschar. Nonpitting edema appreciated to left lower extremity. Excisional debridement down to and including subcutaneous tissue, fascia and muscle to the right lateral ankle full-thickness ulceration with a number 3 mm dermal curette without incident. Predebridement measurement was 0.9 x 0.9 x 0.2 cm. Postdebridement measurement is 1.0 x 1.0 x 0.3 cm. Musculoskeletal: Evidence of varus contracture to the right ankle secondary to tight posterior tibial tendon and anterior tibial tendon. Full range of motion of the knee without pain or crepitus. No pain to palpation to bilateral full-thickness ulcerations. No pain with calf compression bilateral. Debridement Note Debridement Note Debridement Free Text: Excisional debridement down to and including subcutaneous tissue, fascia and muscle to the right lateral ankle full-thickness ulceration with a number 3 mm dermal curette without incident. Predebridement measurement was 0.9 x 0.9 x 0.2 cm. Postdebridement measurement is 1.0 x 1.0 x 0.3 cm. Post-Debridement Measurements and Additional Note: Post-Debridement Measurements/Treatment - Nurse 1 - General Ulcer Assessment Start: 10/14/23 09:01 Freq: Status: Active Protocol: FABIENNE Activity Type Activity Date Activity User E-sign Co-sign Detail Recorded Client Recorded Date Recorded By Document 10/14/23 09:10 KW Desktop 10/14/23 09:35 KW Document 10/21/23 09:15 KW Desktop 10/21/23 09:34 KW Document 10/28/23 09:15 KW [id number] 10/28/23 09:25 KW Document 11/04/23 09:02 KW wound center 11/04/23 09:09 KW 10/14/23 10/21/23 10/28/23 09:10 09:15 09:15 - Today's Visit Information Type of service Initial Visit Follow-up Visit Follow-up Visit (Physician/TECHNICAL MAINTENANCE SPECIALIST (Physician/TECHNICAL MAINTENANCE SPECIALIST ) ) Arrival Mode Wheelchair Wheelchair Wheelchair Transfer Assistance Jackelyn Lift Accompanied by nurse nurse Patient Identification Verified (Name & Yes Yes Yes ) Finger Stick Blood Sugar(mg/dl) (if 144 indicated): Blood Sugar Stated by Patient Height and Weight Height 6 ft 3 in Weight 161.479 kg Weight in Pounds 356.0 lbs Weight Measurement Method Care Home Body Mass Index (BMI) 44.4 44.4 44.4 BMI Classification Obese Obese Obese BSA - Seema 2.80 Vital Signs Temperature (97.8 F-99.1 F) 96.8 F L 97.3 F L 96.8 F L Temperature Source Temporal Temporal Temporal Pulse Rate (60-100) 94 93 97 Pulse Location Monitor Monitor Apical Respiratory Rate (12-18) 18 18 18 Respiratory rate source Observation Observation Observation Oxygen Delivery Method Room Air Room Air Room Air Blood Pressure (90/60-120/80) 164/75 H 131/71 H 142/73 H Blood Pressure Mean (mm Hg) 104 91 96 Source Monitor Monitor Monitor Position Sitting Sitting Sitting Blood Pressure Location Left Forearm Left Arm Right Arm History Since Last Visit- (Skip if this is Patient's initial visit) Have you changed medications since your No No last visit? Any new allergies or adverse reactions No No Had a fall/change in ADL's that may No No increase risk of falls Signs or symptoms of abuse and/or No No neglect since last visit Have you been in the hospital since your No No last visit? Has dressing in place as prescribed Yes Yes Has compression in place as prescribed Yes N/A Has offloadiing in place as prescribed Yes Yes Experienced any changes in pain level or No No management Left Footwear No Footwear No Footwear Right Footwear No Footwear No Footwear Pain Scale: 0-10 Numeric Is Patient Pain Free? Yes Yes Yes Communication Assessment Preferred language Tajik Inspector And Hand Packager Required No Able to Read Yes Able to Write Yes Communication Tools None Caregiver Communication Skills No Impairment Impairment Right Hearing Abillity Hard of Hearing Left Hearing Abillity Hard of Hearing Visual Assistive Devices None Teaching Assessment Preferences Verbal,Written, Demonstration Barriers to Learning None Readiness To Learn Excellent Willingness to Engage in Self Management High Activies Readiness to Engage in Self Management High Activities Anxiety Level Calm Cooperation Cooperative Perception Coherent Interest in Health Problem Asks Questions Education Importance Acknowledges Need Does Patient Smoke tobacco or other Yes substances Smoking Status Never smoker Is Patient Diabetic Yes Functional Assessment Recent Decline in Ability to Perform Ambulation, Bathing,Lower Body Dressing, Toileting, Transferring Culture/Denominational/Narrative Writer Cultural/Denominational Needs that may affect No Treatment Plan Would you allow our [facility] central supply aide to No meet you for the purpose of spiritual/ emotional support? Narrative Writer to contact place of sikhism No 11/04/23 09:02 WC - Today's Visit Information Type of service Follow-up Visit (Physician/TECHNICAL MAINTENANCE SPECIALIST ) Arrival Mode Wheelchair Transfer Assistance Accompanied by nursing Patient Identification Verified (Name & Yes ) Finger Stick Blood Sugar(mg/dl) (if indicated): Blood Sugar Height and Weight Height Weight Weight in Pounds Weight Measurement Method Body Mass Index (BMI) 44.4 BMI Classification Obese [facility] - Seema Vital Signs Temperature (97.8 F-99.1 F) 96.0 F L Temperature Source Temporal Pulse Rate (60-100) 114 H Pulse Location Monitor Respiratory Rate (12-18) 18 Respiratory rate source Observation Oxygen Delivery Method Room Air Blood Pressure (90/60-120/80) 142/68 H Blood Pressure Mean (mm Hg) 92 Source Monitor Position Sitting Blood Pressure Location Right Forearm History Since Last Visit- (Skip if this is Patient's initial visit) Have you changed medications since your No last visit? Any new allergies or adverse reactions No Had a fall/change in ADL's that may No increase risk of falls Signs or symptoms of abuse and/or No neglect since last visit Have you been in the hospital since your No last visit? Has dressing in place as prescribed Yes Has compression in place as prescribed Yes Has offloadiing in place as prescribed Yes Experienced any changes in pain level or No management Left Footwear No Footwear Right Footwear No Footwear Pain Scale: 0-10 Numeric Is Patient Pain Free? Yes Communication Assessment Preferred assistant speech language pathologist Required Able to Read Able to Write Communication Tools Caregiver Communication Skills Impairment Right Hearing Abillity Left Hearing Abillity Visual Assistive Devices Teaching Assessment Preferences Barriers to Learning Readiness To Learn Willingness to Engage in Self Management Activies Readiness to Engage in Self Management Activities Anxiety Level Cooperation Perception Interest in Health Problem Education Importance Does Patient Smoke tobacco or other substances Smoking Status Is Patient Diabetic Functional Assessment Recent Decline in Ability to Perform Culture/Denominational/Narrative Writer Cultural/Denominational Needs that may affect Treatment Plan Would you allow our [facility] central supply aide to meet you for the purpose of spiritual/ emotional support? Narrative Writer to contact place of sikhism WC - Nurse 1 - General Ulcer Measurement Start: 10/14/23 09:01 Freq: Status: Active Protocol: Activity Type Activity Date Activity User E-sign Co-sign Detail Recorded Client Recorded Date Recorded By Document 10/14/23 09:10 KW Desktop 10/14/23 09:35 KW Document 10/21/23 09:15 KW Desktop 10/21/23 09:34 KW Document 10/28/23 09:15 KW [id number] 10/28/23 09:25 KW Document 11/04/23 09:02 KW wound center 11/04/23 09:09 KW 10/14/23 10/21/23 10/28/23 09:10 09:15 09:15 Wound Center Nurse 1 #5 RT LAT FT -Current Size (cm) - Length 0.1 0.5 -Current Size (cm) - Width 0.1 0.4 -Current Size (cm) - Depth 0.1 0.1 -Total Square Cm 0.01 0.20 -Exudate Amt Small Small -Exudate Type Serosanguineous Serosanguineous -Wound Margin Distinct, Distinct, Outline Outline Attached Attached -Granulation Amt Large (67-100%) Medium (34-66%) -Granulation Quality Red [place] -Necrosis Amt Medium (34-66%) -Necrotic Tissue Type Adherent Slough -Texture (Michell-wound Skin Appearance) Assessed Assessed -Moisture (Michell-wound Skin Appearance) Assessed Assessed -Color (Michell-wound Skin Appearance) Assessed Assessed -Temperature (Michell-wound Skin No Abnormality No Abnormality Appearance) (Pt Warm) (Pt Warm) -Tenderness on Palpation (Michell-wound No No Skin Appearance) -Ulcer Cleansing Soap and Water Soap and Water -Foul Odor after Cleansing No -Anesthetic Used 5% Lidocaine 5% Lidocaine Gel Gel #3 RT LAT LEG CLUSTER -Current Size (cm) - Length 0.1 0.1 -Current Size (cm) - Width 0.1 0.1 -Current Size (cm) - Depth 0.1 0.1 -Total Square Cm 0.01 0.01 -Exudate Amt Small -Exudate Type Serosanguineous -Wound Margin Distinct, Outline Attached -Granulation Amt Large (67-100%) -Granulation Quality Red -Texture (Michell-wound Skin Appearance) Assessed Assessed -Moisture (Michell-wound Skin Appearance) Assessed Assessed -Color (Michell-wound Skin Appearance) Assessed Assessed -Temperature (Michell-wound Skin No Abnormality No Abnormality Appearance) (Pt Warm) (Pt Warm) -Tenderness on Palpation (Michell-wound No Skin Appearance) -Ulcer Cleansing Soap and Water Soap and Water -Anesthetic Used 5% Lidocaine Gel #2 RT GOODE -Current Size (cm) - Length 0.3 -Current Size (cm) - Width 0.2 -Current Size (cm) - Depth 0.1 -Total Square Cm 0.06 -Exudate Amt Small -Exudate Type Serosanguineous -Wound Margin Distinct, Outline Attached -Granulation Amt Large (67-100%) -Granulation Quality Red -Texture (Michell-wound Skin Appearance) Assessed -Moisture (Michell-wound Skin Appearance) Assessed -Color (Michell-wound Skin Appearance) Assessed, Hemosiderin Staining -Temperature (Michell-wound Skin No Abnormality Appearance) (Pt Warm) -Ulcer Cleansing Soap and Water -Foul Odor after Cleansing No -Anesthetic Used 5% Lidocaine Gel #1 LT STUMP -Current Size (cm) - Length 0.6 0.3 0.1 -Current Size (cm) - Width 0.6 0.2 0.1 -Current Size (cm) - Depth 3 2 0.1 -Total Square Cm 0.36 0.06 0.01 -Circular Undermining Yes -Exudate Amt Medium Medium -Exudate Type Serosanguineous Serosanguineous -Wound Margin Distinct, Distinct, Outline Outline Attached Attached -Granulation Amt Large (67-100%) Large (67-100%) -Granulation Quality Red [place] -Texture (Michell-wound Skin Appearance) Assessed Assessed Assessed -Moisture (Michell-wound Skin Appearance) Assessed Assessed Assessed -Color (Michell-wound Skin Appearance) Assessed Assessed Assessed -Temperature (Michell-wound Skin No Abnormality No Abnormality No Abnormality Appearance) (Pt Warm) (Pt Warm) (Pt Warm) -Tenderness on Palpation (Michell-wound No No No Skin Appearance) -Ulcer Cleansing Soap and Water Soap and Water Rinsed/ Irrigated with Saline -Foul Odor after Cleansing No No No -Anesthetic Used 5% Lidocaine 5% Lidocaine 5% Lidocaine Gel Gel Gel -Wound Comment(s) scabbed #6 RT 2ND TOE -Current Size (cm) - Length 0.5 0.1 0.1 -Current Size (cm) - Width 0.5 0.1 0.1 -Current Size (cm) - Depth 0.1 0.1 1 -Total Square Cm 0.25 0.01 0.01 -Exudate Amt Medium -Exudate Type Serosanguineous -Wound Margin Distinct, Outline Attached -Granulation Amt Large (67-100%) -Granulation Quality Red -Necrosis Amt Small (1-33%) -Necrotic Tissue Type Adherent Slough -Texture (Michell-wound Skin Appearance) Assessed Assessed -Moisture (Michell-wound Skin Appearance) Assessed Assessed -Color (Michell-wound Skin Appearance) Assessed Assessed -Temperature (Michell-wound Skin No Abnormality No Abnormality Appearance) (Pt Warm) (Pt Warm) -Tenderness on Palpation (Michell-wound No No Skin Appearance) -Ulcer Cleansing Soap and Water Soap and Water -Foul Odor after Cleansing No -Anesthetic Used 5% Lidocaine 5% Lidocaine Gel Gel -Wound Comment(s) scabbed #4 RT LAT ANKLE -Current Size (cm) - Length 1 0.7 0.8 -Current Size (cm) - Width 0.8 0.5 0.6 -Current Size (cm) - Depth 0.3 0.3 0.3 -Total Square Cm 0.8 0.35 0.48 -Exudate Amt Small Small Small -Exudate Type Serosanguineous Serosanguineous Serosanguineous -Wound Margin Distinct, Distinct, Distinct, Outline Outline Outline Attached Attached Attached -Granulation Amt Large (67-100%) Large (67-100%) Large (67-100%) -Granulation Quality Red [place] -Necrosis Amt Small (1-33%) Small (1-33%) Small (1-33%) -Necrotic Tissue Type Adherent Slough Adherent Slough Adherent Slough -Texture (Michell-wound Skin Appearance) Assessed Assessed Assessed -Moisture (Michell-wound Skin Appearance) Assessed Assessed Assessed -Color (Michell-wound Skin Appearance) Assessed, Assessed Assessed Hemosiderin Staining -Temperature (Michell-wound Skin No Abnormality No Abnormality No Abnormality Appearance) (Pt Warm) (Pt Warm) (Pt Warm) -Tenderness on Palpation (Michell-wound No No Skin Appearance) -Ulcer Cleansing Soap and Water Soap and Water Rinsed/ Irrigated with Saline -Foul Odor after Cleansing No No -Anesthetic Used 5% Lidocaine 5% Lidocaine 5% Lidocaine Gel Gel Gel Right Calf (cm) Right Ankle (cm) 11/04/23 09:02 Wound Center Nurse 1 #5 RT LAT FT -Current Size (cm) - Length -Current Size (cm) - Width -Current Size (cm) - Depth -Total Square Cm -Exudate Amt -Exudate Type -Wound Margin -Granulation Amt -Granulation Quality -Necrosis Amt -Necrotic Tissue Type -Texture (Michell-wound Skin Appearance) -Moisture (Michell-wound Skin Appearance) -Color (Michell-wound Skin Appearance) -Temperature (Michell-wound Skin Appearance) -Tenderness on Palpation (Michell-wound Skin Appearance) -Ulcer Cleansing -Foul Odor after Cleansing -Anesthetic Used #3 RT LAT LEG CLUSTER -Current Size (cm) - Length -Current Size (cm) - Width -Current Size (cm) - Depth -Total Square Cm -Exudate Amt -Exudate Type -Wound Margin -Granulation Amt -Granulation Quality -Texture (Michell-wound Skin Appearance) -Moisture (Michell-wound Skin Appearance) -Color (Michell-wound Skin Appearance) -Temperature (Michell-wound Skin Appearance) -Tenderness on Palpation (Michell-wound Skin Appearance) -Ulcer Cleansing -Anesthetic Used #2 RT GOODE -Current Size (cm) - Length -Current Size (cm) - Width -Current Size (cm) - Depth -Total Square Cm -Exudate Amt -Exudate Type -Wound Margin -Granulation Amt -Granulation Quality -Texture (Michell-wound Skin Appearance) -Moisture (Michell-wound Skin Appearance) -Color (Michell-wound Skin Appearance) -Temperature (Michell-wound Skin Appearance) -Ulcer Cleansing -Foul Odor after Cleansing -Anesthetic Used #1 LT STUMP -Current Size (cm) - Length -Current Size (cm) - Width -Current Size (cm) - Depth -Total Square Cm -Circular Undermining -Exudate Amt -Exudate Type -Wound Margin -Granulation Amt -Granulation Quality -Texture (Michell-wound Skin Appearance) -Moisture (Michell-wound Skin Appearance) -Color (Michell-wound Skin Appearance) -Temperature (Michell-wound Skin Appearance) -Tenderness on Palpation (Michell-wound Skin Appearance) -Ulcer Cleansing -Foul Odor after Cleansing -Anesthetic Used -Wound Comment(s) #6 RT 2ND TOE -Current Size (cm) - Length 1 -Current Size (cm) - Width 1 -Current Size (cm) - Depth -Total Square Cm 1 -Exudate Amt -Exudate Type -Wound Margin -Granulation Amt -Granulation Quality -Necrosis Amt Large (67-100%) -Necrotic Tissue Type Eschar -Texture (Michell-wound Skin Appearance) Assessed -Moisture (Michell-wound Skin Appearance) Assessed -Color (Michell-wound Skin Appearance) Assessed -Temperature (Michell-wound Skin No Abnormality Appearance) (Pt Warm) -Tenderness on Palpation (Michell-wound No Skin Appearance) -Ulcer Cleansing Rinsed/ Irrigated with Saline -Foul Odor after Cleansing -Anesthetic Used 5% Lidocaine Gel -Wound Comment(s) #4 RT LAT ANKLE -Current Size (cm) - Length 0.8 -Current Size (cm) - Width 0.9 -Current Size (cm) - Depth 0.3 -Total Square Cm 0.72 -Exudate Amt Small -Exudate Type Serosanguineous -Wound Margin Distinct, Outline Attached -Granulation Amt Small (1-33%) -Granulation Quality [place] -Necrosis Amt Large (67-100%) -Necrotic Tissue Type Adherent Slough -Texture (Michell-wound Skin Appearance) Assessed, Localized Edema -Moisture (Michell-wound Skin Appearance) Assessed -Color (Michell-wound Skin Appearance) Assessed -Temperature (Michell-wound Skin No Abnormality Appearance) (Pt Warm) -Tenderness on Palpation (Michell-wound No Skin Appearance) -Ulcer Cleansing Rinsed/ Irrigated with Saline -Foul Odor after Cleansing -Anesthetic Used 5% Lidocaine Gel Right Calf (cm) 48 Right Ankle (cm) 28 WC - Nurse 2 - General Ulcer CM Notes Start: 10/14/23 09:01 Freq: Status: Active Protocol: Activity Type Activity Date Activity User E-sign Co-sign Detail Recorded Client Recorded Date Recorded By Document 10/14/23 10:05 Laptop 10/14/23 10:16 JF Document 10/21/23 10:46 JF [id number] 10/21/23 10:47 JF Document 10/28/23 09:41 [place] [id number] 10/28/23 09:43 DS Edit Result 10/28/23 09:41 DS (1) [id number] 10/28/23 09:44 DS Edit Result 10/28/23 09:41 DS (2) [id number] 10/28/23 10:12 DS Document 11/04/23 09:26 JF [id number] 11/04/23 09:27 JF (1) #6 RT 2ND TOE - Time => 09:43 - Correct Patient => Yes - Correct Side, Site, Position => Yes - Correct Procedure => Yes - Procedure Performed => Yes - Type of Procedure => Debridement - Clinical Debridement => Muscle / Fascia - Tissue Removed => Muscle - Post Debridement (cm) - Length => 0.7 - Post Debridement (cm) - Width => 0.7 - Post Debridement (cm) - Depth => 0.1 - Total Square (Post) (cm) => 0.49 - Area of Debridement (cm) - Length => 0.7 - Area of Debridement (cm) - Width => 0.7 - Total Square (Area) (cm) => 0.49 - Tunneling => No - Undermining/Tunneling => No - Circular Undermining => No - Wound/Ulcer Outcome => Not Healed - Ulcer Cleansing => Rinsed/Irrigated => with Saline - Bleeding Controlled with => Pressure,Silver => Nitrate - Treatment Response => Procedure => Tolerated Well - Debridement - Muscle / Fascia, 1st => Yes 20sq cm (2) #6 RT 2ND TOE - Clinical Debridement Muscle / Fascia => Subcutaneous - Tissue Removed Muscle => Subcutaneous - Debridement - Subq, 1st 20sq cm => No - Debridement - Muscle / Fascia, 1st Yes => 20sq cm #4 RT LAT ANKLE - Clinical Debridement Subcutaneous => Muscle / Fascia - Tissue Removed => Muscle - Debridement - Subq, 1st 20sq cm No => - Debridement - Muscle / Fascia, 1st => Yes 20sq cm 10/14/23 10/21/23 10/28/23 10:05 10:46 09:41 Wound Center Nurse 2 #5 RT LAT FT -Time 10:10 -Correct Patient Yes No -Correct Side, Site, Position Yes No -Correct Procedure Yes No -Procedure Performed Yes No -Type of Procedure Debridement -Clinical Debridement Subcutaneous -Tissue Removed Subcutaneous -Post Debridement (cm) - Length 0.4 -Post Debridement (cm) - Width 0.5 -Post Debridement (cm) - Depth 0.1 -Total Square (Post) (cm) 0.20 -Area of Debridement (cm) - Length 0.4 -Area of Debridement (cm) - Width 0.5 -Total Square (Area) (cm) 0.20 -Tunneling No -Undermining/Tunneling No -Circular Undermining No -Wound/Ulcer Outcome Not Healed Not Healed -Ulcer Cleansing Rinsed/ Irrigated with Saline -Foul Odor after Cleansing No -Bioengineered Tissue No -Bleeding Controlled with Pressure -Treatment Response Procedure Tolerated Well -Offloading No -Debridement - Subq, 1st 20sq cm No #3 RT LAT LEG CLUSTER -Time 10:11 -Correct Patient Yes No -Correct Side, Site, Position Yes No -Correct Procedure Yes No -Procedure Performed Yes No -Type of Procedure Debridement -Clinical Debridement Subcutaneous -Tissue Removed Subcutaneous -Post Debridement (cm) - Length 0.3 -Post Debridement (cm) - Width 0.4 -Post Debridement (cm) - Depth 0.1 -Total Square (Post) (cm) 0.12 -Area of Debridement (cm) - Length 0.3 -Area of Debridement (cm) - Width 0.4 -Total Square (Area) (cm) 0.12 -Tunneling No -Undermining/Tunneling No -Circular Undermining No -Wound/Ulcer Outcome Not Healed Not Healed -Ulcer Cleansing Rinsed/ Irrigated with Saline -Bioengineered Tissue No -Bleeding Controlled with Pressure -Treatment Response Procedure Tolerated Well -Offloading No -Debridement - Subq, 1st 20sq cm No #2 RT GOODE -Correct Patient No -Correct Side, Site, Position No -Correct Procedure No -Procedure Performed No #1 LT STUMP -Time 10:12 -Correct Patient Yes No No -Correct Side, Site, Position Yes No No -Correct Procedure Yes No No -Procedure Performed Yes No No -Type of Procedure Debridement -Clinical Debridement Subcutaneous -Tissue Removed Dermis -Post Debridement (cm) - Length 0.3 -Post Debridement (cm) - Width 0.3 -Post Debridement (cm) - Depth 2.2 -Total Square (Post) (cm) 0.09 -Area of Debridement (cm) - Length 0.3 -Area of Debridement (cm) - Width 0.3 -Total Square (Area) (cm) 0.09 -Tunneling No -Undermining/Tunneling No -Circular Undermining No -Wound/Ulcer Outcome Not Healed Not Healed Healed- Epithelialized -Ulcer Cleansing Rinsed/ Irrigated with Saline -Foul Odor after Cleansing No -Bioengineered Tissue No -Bleeding Controlled with Pressure -Treatment Response Procedure Tolerated Well -Offloading No -Debridement - Subq, 1st 20sq cm Yes #6 RT 2ND TOE -Time 10:10 09:43 -Correct Patient Yes No Yes -Correct Side, Site, Position Yes No Yes -Correct Procedure Yes No Yes -Procedure Performed Yes No Yes -Type of Procedure Debridement Debridement -Clinical Debridement Subcutaneous Subcutaneous -Tissue Removed Subcutaneous Subcutaneous -Post Debridement (cm) - Length 0.7 0.7 -Post Debridement (cm) - Width 0.7 0.7 -Post Debridement (cm) - Depth 0.1 0.1 -Total Square (Post) (cm) 0.49 0.49 -Area of Debridement (cm) - Length 0.7 0.7 -Area of Debridement (cm) - Width 0.7 0.7 -Total Square (Area) (cm) 0.49 0.49 -Tunneling No No -Undermining/Tunneling No No -Circular Undermining No No -Wound/Ulcer Outcome Not Healed Not Healed Not Healed -Ulcer Cleansing Rinsed/ Rinsed/ Irrigated with Irrigated with Saline Saline -Foul Odor after Cleansing No -Bioengineered Tissue No -Bleeding Controlled with Pressure Pressure,Silver Nitrate -Treatment Response Procedure Procedure Tolerated Well Tolerated Well -Offloading No -Debridement - Subq, 1st 20sq cm No No #4 RT LAT ANKLE -Time 10:11 09:42 -Correct Patient Yes No Yes -Correct Side, Site, Position Yes No Yes -Correct Procedure Yes No Yes -Procedure Performed Yes No Yes -Type of Procedure Debridement Debridement -Clinical Debridement Muscle / Fascia Muscle / Fascia -Tissue Removed Muscle,Fascia Muscle -Post Debridement (cm) - Length 0.9 0.9 -Post Debridement (cm) - Width 0.8 0.9 -Post Debridement (cm) - Depth 0.2 0.3 -Total Square (Post) (cm) 0.72 0.81 -Area of Debridement (cm) - Length 0.9 0.9 -Area of Debridement (cm) - Width 0.8 0.9 -Total Square (Area) (cm) 0.72 0.81 -Tunneling No No -Undermining/Tunneling No No -Circular Undermining No No -Wound/Ulcer Outcome Not Healed Not Healed Not Healed -Ulcer Cleansing Rinsed/ Rinsed/ Irrigated with Irrigated with Saline Saline -Foul Odor after Cleansing No -Bioengineered Tissue No -Bleeding Controlled with Pressure Pressure -Treatment Response Procedure Procedure Tolerated Well Tolerated Well -Offloading No -Debridement - Subq, 1st 20sq cm No -Debridement - Muscle / Fascia, 1st Yes Yes 20sq cm Pain Scale: 0-10 Numeric Is Patient Pain Free? Yes Yes Yes 11/04/23 09:26 Wound Center Nurse 2 #5 RT LAT FT -Time -Correct Patient -Correct Side, Site, Position -Correct Procedure -Procedure Performed -Type of Procedure -Clinical Debridement -Tissue Removed -Post Debridement (cm) - Length -Post Debridement (cm) - Width -Post Debridement (cm) - Depth -Total Square (Post) (cm) -Area of Debridement (cm) - Length -Area of Debridement (cm) - Width -Total Square (Area) (cm) -Tunneling -Undermining/Tunneling -Circular Undermining -Wound/Ulcer Outcome -Ulcer Cleansing -Foul Odor after Cleansing -Bioengineered Tissue -Bleeding Controlled with -Treatment Response -Offloading -Debridement - Subq, 1st 20sq cm #3 RT LAT LEG CLUSTER -Time -Correct Patient -Correct Side, Site, Position -Correct Procedure -Procedure Performed -Type of Procedure -Clinical Debridement -Tissue Removed -Post Debridement (cm) - Length -Post Debridement (cm) - Width -Post Debridement (cm) - Depth -Total Square (Post) (cm) -Area of Debridement (cm) - Length -Area of Debridement (cm) - Width -Total Square (Area) (cm) -Tunneling -Undermining/Tunneling -Circular Undermining -Wound/Ulcer Outcome -Ulcer Cleansing -Bioengineered Tissue -Bleeding Controlled with -Treatment Response -Offloading -Debridement - Subq, 1st 20sq cm #2 RT GOODE -Correct Patient -Correct Side, Site, Position -Correct Procedure -Procedure Performed #1 LT STUMP -Time -Correct Patient -Correct Side, Site, Position -Correct Procedure -Procedure Performed -Type of Procedure -Clinical Debridement -Tissue Removed -Post Debridement (cm) - Length -Post Debridement (cm) - Width -Post Debridement (cm) - Depth -Total Square (Post) (cm) -Area of Debridement (cm) - Length -Area of Debridement (cm) - Width -Total Square (Area) (cm) -Tunneling -Undermining/Tunneling -Circular Undermining -Wound/Ulcer Outcome -Ulcer Cleansing -Foul Odor after Cleansing -Bioengineered Tissue -Bleeding Controlled with -Treatment Response -Offloading -Debridement - Subq, 1st 20sq cm #6 RT 2ND TOE -Time -Correct Patient No -Correct Side, Site, Position No -Correct Procedure No -Procedure Performed No -Type of Procedure -Clinical Debridement -Tissue Removed -Post Debridement (cm) - Length -Post Debridement (cm) - Width -Post Debridement (cm) - Depth -Total Square (Post) (cm) -Area of Debridement (cm) - Length -Area of Debridement (cm) - Width -Total Square (Area) (cm) -Tunneling -Undermining/Tunneling -Circular Undermining -Wound/Ulcer Outcome Not Healed -Ulcer Cleansing -Foul Odor after Cleansing -Bioengineered Tissue -Bleeding Controlled with -Treatment Response -Offloading -Debridement - Subq, 1st 20sq cm #4 RT LAT ANKLE -Time 09:26 -Correct Patient Yes -Correct Side, Site, Position Yes -Correct Procedure Yes -Procedure Performed Yes -Type of Procedure Debridement -Clinical Debridement Muscle / Fascia -Tissue Removed Muscle,Fascia -Post Debridement (cm) - Length 1.0 -Post Debridement (cm) - Width 1.0 -Post Debridement (cm) - Depth 0.3 -Total Square (Post) (cm) 1.00 -Area of Debridement (cm) - Length 1.0 -Area of Debridement (cm) - Width 1.0 -Total Square (Area) (cm) 1.00 -Tunneling No -Undermining/Tunneling No -Circular Undermining No -Wound/Ulcer Outcome Not Healed -Ulcer Cleansing Rinsed/ Irrigated with Saline -Foul Odor after Cleansing No -Bioengineered Tissue No -Bleeding Controlled with Pressure -Treatment Response Procedure Tolerated Well -Offloading No -Debridement - Subq, 1st 20sq cm -Debridement - Muscle / Fascia, 1st Yes 20sq cm Pain Scale: 0-10 Numeric Is Patient Pain Free? Yes WC - Nurse 3 - General Ulcer D/C NN Start: 10/14/23 09:01 Freq: Status: Active Protocol: Activity Type Activity Date Activity User E-sign Co-sign Detail Recorded Client Recorded Date Recorded By Document 10/14/23 10:50 KW Desktop 10/14/23 10:51 KW Document 10/21/23 10:47 SALLY [id number] 10/21/23 10:49 JF Document 10/28/23 10:05 [id number] 10/28/23 10:07 Document 11/04/23 09:58 wound center 11/04/23 09:59 10/14/23 10/21/23 10/28/23 10:50 10:47 10:05 Wound Care Center Nurse 3 #5 RT LAT FT -Foul Odor after Cleansing No -Other Dressing betadine -Primary Dressing Covered/Secured with Dry Gauze Dry Gauze & Roll Gauze #3 RT LAT LEG CLUSTER -Foul Odor after Cleansing No -Other Dressing betadine -Primary Dressing Covered/Secured with Dry Gauze Dry Gauze & Roll Gauze, Secured with Tape #1 LT STUMP -Foul Odor after Cleansing No -Primary Dressing Applied Nugauze, Iodoform 1/4in -Other Dressing betadine -Primary Dressing Covered/Secured with Dry Gauze & Dry Gauze & Roll Gauze, Roll Gauze, Secured with Secured with Tape Tape -Nugauze, Iodoform 1/4in 1 #6 RT 2ND TOE -Ulcer Cleansing Not Cleansed -Foul Odor after Cleansing No No -Primary Dressing Applied Promogran Rafaela Matter -Other Dressing betadine -Primary Dressing Covered/Secured with Dry Gauze,Dry Dry Gauze,Dry Dry Gauze,Dry Gauze & Roll Gauze & Roll Gauze & Roll Gauze,Secured Gauze Gauze,Secured with Tape with Tape -Promogran Rafaela Matter 1 #4 RT LAT ANKLE -Ulcer Cleansing Not Cleansed -Foul Odor after Cleansing No No -Primary Dressing Applied Promogran Rafaela Matter -Other Dressing betadine -Primary Dressing Covered/Secured with Dry Gauze Dry Gauze & Dry Gauze & Roll Gauze, Roll Gauze, Secured with Secured with Tape Tape -Promogran Rafaela Matter 1 Left -Lotion applied to leg before No compression wrap -Tubular Bandage Single Layer Single Layer -Size of Tubigrip Used Size E Size E -Size E ($) 1 1 Right -Lotion applied to leg before No compression wrap -Tubular Bandage Single Layer Single Layer -Size of Tubigrip Used Size E Size E -Size E ($) 1 1 Pain Scale: 0-10 Numeric Is Patient Pain Free? Yes Yes Yes Teaching: Wound Center dressing wound -Person Taught Patient -Teaching Method Discussion -Response to teaching Verbalize understanding WC - Visit Discharge Discharge Condition Stable Stable Stable Ambulatory Status Wheelchair Wheelchair Wheelchair Transportation Private Auto Accompanied by NURSE transfer to ER Medication Reconcilliation completed & No No provided to patient/care provider Clinical Summary of Care Provided Yes No Yes 11/04/23 09:58 Wound Care Center Nurse 3 #5 RT LAT FT -Foul Odor after Cleansing -Other Dressing -Primary Dressing Covered/Secured with #3 RT LAT LEG CLUSTER -Foul Odor after Cleansing -Other Dressing -Primary Dressing Covered/Secured with #1 LT STUMP -Foul Odor after Cleansing -Primary Dressing Applied -Other Dressing -Primary Dressing Covered/Secured with -Nugauze, Iodoform 1/4in #6 RT 2ND TOE -Ulcer Cleansing Not Cleansed -Foul Odor after Cleansing No -Primary Dressing Applied Promogran Rafaela Matter -Other Dressing -Primary Dressing Covered/Secured with Dry Gauze,Dry Gauze & Roll Gauze,Secured with Tape -Promogran Rafaela Matter 1 #4 RT LAT ANKLE -Ulcer Cleansing Not Cleansed -Foul Odor after Cleansing No -Primary Dressing Applied -Other Dressing -Primary Dressing Covered/Secured with Dry Gauze, Secured with Tape -Promogran Rafaela Matter Left -Lotion applied to leg before No compression wrap -Tubular Bandage Single Layer -Size of Tubigrip Used Size E -Size E ($) 1 Right -Lotion applied to leg before No compression wrap -Tubular Bandage Double Layer -Size of Tubigrip Used Size E -Size E ($) 2 Pain Scale: 0-10 Numeric Is Patient Pain Free? Yes Teaching: Wound Center dressing wound -Person Taught -Teaching Method -Response to teaching WC - Visit Discharge Discharge Condition Stable Ambulatory Status Ambulatory Transportation Private Auto Accompanied by Medication Reconcilliation completed & provided to patient/care provider Clinical Summary of Care Provided Yes Assessment/Plan Assessment/Plan (1) Non-pressure chronic ulcer of right ankle with necrosis of muscle: CODE(S): L97.313 - Non-pressure chronic ulcer of right ankle with necrosis of muscle PLAN: Patient was examined and evaluated. All findings were discussed with the patient. All questions were answered to the patient's satisfaction. Excisional debridement down to and including subcutaneous tissue, fascia and muscle to the right lateral ankle full-thickness ulceration with a number 3 mm dermal curette without incident. Predebridement measurement was 0.9 x 0.9 x 0.2 cm. Postdebridement measurement is 1.0 x 1.0 x 0.3 cm. Right lower extremities were cleaned and patted dry. The ulceration was dressed with Rafaela dry sterile dressing and single-layer Tubigrip. Encouraged the patient to participate in physical activity to help with weight loss. It was also educated the patient that he does not need double portions at his facility and can do with single portions at each mealtime which she was understanding of. Continued educated the patient on strict blood sugar control. We will begin authorization to the patient's insurance for amniotic skin graft substitute to the right lateral ankle to aid in healing. Follow-up at the wound care center with Dr. Sarah in 1 week. (2) Chronic painful diabetic polyneuropathy: CODE(S): E11.42 - Type 2 diabetes mellitus with diabetic polyneuropathy (3) Other specified peripheral vascular diseases: CODE(S): I73.89 - Other specified peripheral vascular diseases
[2023-11-11 09:01] VITALS: BP 84/34; PULSE 114; RESP 18; TEMP 35.9; BMI 44.4
--- NOTE | 2023-11-11 09:47 | PCM.WC.PN ---
History of Present Illness Date of Service: 11/11/23 Chief Complaint: Bilateral leg wounds. History of Wound: By leg wounds. Progress of Wound: Mr. 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 Patient was seen by an outside provider/orthopedic surgeon who performed below-knee amputation to left lower extremity. 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 Patient has been on oral antibiotics with limited success on healing to the wound on the left stump site. Patient also has multiple full-thickness ulcerations to the right lower extremity secondary to increased pressure with AFO brace and contracture at the level of the ankle. Patient is nonambulatory at this time secondary to low knee amputation to left lower extremity. He is able to transfer and move around in a wheelchair. He denies any trauma. He admits to a wide range of blood sugar readings from 100 to 300 mg/dL. He does admit that he is more stable at the assisted facility. He denies any trauma. Subjective Subjective Mr. Olivares is a 78-year-old diabetic male presenting to the wound care center today for follow-up and evaluation of full-thickness ulceration to the lateral aspect of the right ankle. Patient's below-knee amputation site is stable and well compressed. Patient does admit to bumping his right great toe on his desk and has a deep tissue injury present at this time. He admits his blood sugar has been under control and is on oral metformin. He has reduced his eating habits and is participating in physical therapy for upper body strength. He currently resides in a wheelchair for ambulation. Admits to trauma as stated above. Denies constitutional symptoms. No other pedal complaints at this time. Objective Data Objective Data Vital Signs: Vital Signs Temp Pulse Resp BP O2 Del Method 96.7 F L 114 H 18 84/34 L Room Air 11/11/23 09:01 11/11/23 09:01 11/11/23 09:01 11/11/23 09:01 11/11/23 09:01 Oxygen Delivery Method Room Air Weight: 161.479 kg Body Mass Index (BMI) 44.4 Physical Exam Narrative Vascular: DP and PT pulses are faintly palpable to the right lower extremity. DP and PT pulses on Doppler are biphasic. 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 Skin temp great is warm to warm from proximal ankle to distal digits to the right lower extremity. Skin temperature gradient is warm to cool to the need to the BKA stump to left lower extremity. No focal increase appreciated. Evidence of deep tissue injury appreciated to the distal aspect of the right hallux. Neurological: Light touch intact. Protective sentation is diminished. Dermatological: Evidence of deep tissue injury appreciated to the right hallux with evidence of hematoma. Full-thickness ulceration to the right lateral ankle measuring 1.2 x 1.0 x 0.3 cm. Full-thickness ulceration to the right second digit is stable with eschar. Nonpitting edema appreciated to left lower extremity. Excisional debridement down to and including subcutaneous tissue, fascia and muscle to the right lateral ankle full-thickness ulceration with a number 3 mm dermal curette without incident. Predebridement measurement was 1.0 x 1.0 x 0.2 cm. Postdebridement measurement is 1.2 x 1.0 x 0.3 cm. Topical anesthesia was applied to the right hallux at the level of the deep tissue injury/hematoma. Using a sterile 15 blade incision and drainage was performed to express all fluid without incident. Culture was taken. Triple-lumen antibiotic and a sterile Band-Aid was applied to the right hallux. EpiCord 2.0 x 3.0 cm graft was applied to the right ankle full-thickness ulceration with 100% use. First application. The graft site was free and clear of any infection. The wound/skin graft substitute was dressed with nonadherent bandage secured in place with Steri-Strips followed by bolster dressing as well as a single layer Landis compression bandage down to the right lower extremity. Musculoskeletal: Evidence of varus contracture to the right ankle secondary to tight posterior tibial tendon and anterior tibial tendon. Full range of motion of the knee without pain or crepitus. No pain to palpation to bilateral full-thickness ulcerations. No pain with calf compression bilateral. Debridement Note Debridement Note Debridement Free Text: Excisional debridement down to and including subcutaneous tissue, fascia and muscle to the right lateral ankle full-thickness ulceration with a number 3 mm dermal curette without incident. Predebridement measurement was 1.0 x 1.0 x 0.2 cm. Postdebridement measurement is 1.2 x 1.0 x 0.3 cm. Topical anesthesia was applied to the right hallux at the level of the deep tissue injury/hematoma. Using a sterile 15 blade incision and drainage was performed to express all fluid without incident. Culture was taken. Triple-lumen antibiotic and a sterile Band-Aid was applied to the right hallux. EpiCord 2.0 x 3.0 cm graft was applied to the right ankle full-thickness ulceration with 100% use. First application. The graft site was free and clear of any infection. The wound/skin graft substitute was dressed with nonadherent bandage secured in place with Steri-Strips followed by bolster dressing as well as a single layer Landis compression bandage down to the right lower extremity. Post-Debridement Measurements and Additional Note: Post-Debridement Measurements/Treatment WC - Nurse 1 - General Ulcer Assessment Start: 10/14/23 09:01 Freq: Status: Active Protocol: [email or web address] Activity Type Activity Date Activity User E-sign Co-sign Detail Recorded Client Recorded Date Recorded By Document 10/14/23 09:10 KW Desktop 10/14/23 09:35 KW Document 10/21/23 09:15 KW Desktop 10/21/23 09:34 KW Document 10/28/23 09:15 KW [id number] 10/28/23 09:25 KW Document 11/04/23 09:02 KW wound center 11/04/23 09:09 KW Document 11/11/23 09:01 KW wound center 11/11/23 09:14 KW 10/14/23 10/21/23 10/28/23 09:10 09:15 09:15 - Today's Visit Information Type of service Initial Visit Follow-up Visit Follow-up Visit (Physician/EDUCATION PROGRAM MANAGER (Physician/EDUCATION PROGRAM MANAGER ) ) Arrival Mode Wheelchair Wheelchair Wheelchair Transfer Assistance Jackelyn Lift Accompanied by nurse nurse Patient Identification Verified (Name & Yes Yes Yes ) Finger Stick Blood Sugar(mg/dl) (if 144 indicated): Blood Sugar Stated by Patient Height and Weight Height 6 ft 3 in Weight 161.479 kg Weight in Pounds 356.0 lbs Weight Measurement Method Mcfp Body Mass Index (BMI) 44.4 44.4 44.4 BMI Classification Obese Obese Obese BSA - Seema 2.80 Vital Signs Temperature (97.8 F-99.1 F) 96.8 F L 97.3 F L 96.8 F L Temperature Source Temporal Temporal Temporal Pulse Rate (60-100) 94 93 97 Pulse Location Monitor Monitor Apical Respiratory Rate (12-18) 18 18 18 Respiratory rate source Observation Observation Observation Oxygen Delivery Method Room Air Room Air Room Air Blood Pressure (90/60-120/80) 164/75 H 131/71 H 142/73 H Blood Pressure Mean (mm Hg) 104 91 96 Source Monitor Monitor Monitor Position Sitting Sitting Sitting Blood Pressure Location Left Forearm Left Arm Right Arm History Since Last Visit- (Skip if this is Patient's initial visit) Have you changed medications since your No No last visit? Any new allergies or adverse reactions No No Had a fall/change in ADL's that may No No increase risk of falls Signs or symptoms of abuse and/or No No neglect since last visit Have you been in the hospital since your No No last visit? Has dressing in place as prescribed Yes Yes Has compression in place as prescribed Yes N/A Has offloadiing in place as prescribed Yes Yes Experienced any changes in pain level or No No management Left Footwear No Footwear No Footwear Right Footwear No Footwear No Footwear Pain Scale: 0-10 Numeric Is Patient Pain Free? Yes Yes Yes Communication Assessment Preferred language Guatemalan Pre Billing Specialist Required No Able to Read Yes Able to Write Yes Communication Tools None Caregiver Communication Skills No Impairment Impairment Right Hearing Abillity Hard of Hearing Left Hearing Abillity Hard of Hearing Visual Assistive Devices None Teaching Assessment Preferences Verbal,Written, Demonstration Barriers to Learning None Readiness To Learn Excellent Willingness to Engage in Self Management High Activies Readiness to Engage in Self Management High Activities Anxiety Level Calm Cooperation Cooperative Perception Coherent Interest in Health Problem Asks Questions Education Importance Acknowledges Need Does Patient Smoke tobacco or other Yes substances Smoking Status Never smoker Is Patient Diabetic Yes Functional Assessment Recent Decline in Ability to Perform Ambulation, Bathing,Lower Body Dressing, Toileting, Transferring Culture/Spiritism/Production Potter Cultural/Spiritism Needs that may affect No Treatment Plan Would you allow our hospital pediatric sports medicine specialist to No meet you for the purpose of spiritual/ emotional support? Production Potter to contact place of alevism No 11/04/23 11/11/23 09:02 09:01 WC - Today's Visit Information Type of service Follow-up Visit Follow-up Visit (Physician/EDUCATION PROGRAM MANAGER (Physician/EDUCATION PROGRAM MANAGER ) ) Arrival Mode Wheelchair Wheelchair Transfer Assistance Accompanied by nursing Patient Identification Verified (Name & Yes Yes ) Finger Stick Blood Sugar(mg/dl) (if indicated): Blood Sugar Height and Weight Height Weight Weight in Pounds Weight Measurement Method Body Mass Index (BMI) 44.4 44.4 BMI Classification Obese Obese [facility] - Seema Vital Signs Temperature (97.8 F-99.1 F) 96.0 F L 96.7 F L Temperature Source Temporal Temporal Pulse Rate (60-100) 114 H 114 H Pulse Location Monitor Monitor Respiratory Rate (12-18) 18 18 Respiratory rate source Observation Observation Oxygen Delivery Method Room Air Room Air Blood Pressure (90/60-120/80) 142/68 H 84/34 L Blood Pressure Mean (mm Hg) 92 50 Source Monitor Monitor Position Sitting Sitting Blood Pressure Location Right Forearm Left Arm History Since Last Visit- (Skip if this is Patient's initial visit) Have you changed medications since your No No last visit? Any new allergies or adverse reactions No No Had a fall/change in ADL's that may No No increase risk of falls Signs or symptoms of abuse and/or No No neglect since last visit Have you been in the hospital since your No No last visit? Has dressing in place as prescribed Yes Yes Has compression in place as prescribed Yes Yes Has offloadiing in place as prescribed Yes Yes Experienced any changes in pain level or No No management Left Footwear No Footwear No Footwear Right Footwear No Footwear No Footwear Pain Scale: 0-10 Numeric Is Patient Pain Free? Yes Yes Communication Assessment Preferred motorcycle maker Required Able to Read Able to Write Communication Tools Caregiver Communication Skills Impairment Right Hearing Abillity Left Hearing Abillity Visual Assistive Devices Teaching Assessment Preferences Barriers to Learning Readiness To Learn Willingness to Engage in Self Management Activies Readiness to Engage in Self Management Activities Anxiety Level Cooperation Perception Interest in Health Problem Education Importance Does Patient Smoke tobacco or other substances Smoking Status Is Patient Diabetic Functional Assessment Recent Decline in Ability to Perform Culture/Spiritism/Production Potter Cultural/Spiritism Needs that may affect Treatment Plan Would you allow our hospital pediatric sports medicine specialist to meet you for the purpose of spiritual/ emotional support? Production Potter to contact place of alevism WC - Nurse 1 - General Ulcer Measurement Start: 10/14/23 09:01 Freq: Status: Active Protocol: Activity Type Activity Date Activity User E-sign Co-sign Detail Recorded Client Recorded Date Recorded By Document 10/14/23 09:10 KW Desktop 10/14/23 09:35 KW Document 10/21/23 09:15 KW Desktop 10/21/23 09:34 KW Document 10/28/23 09:15 KW [id number] 10/28/23 09:25 KW Document 11/04/23 09:02 KW wound center 11/04/23 09:09 KW Document 11/11/23 09:01 KW wound center 11/11/23 09:14 KW 10/14/23 10/21/23 10/28/23 09:10 09:15 09:15 Wound Center Nurse 1 #5 RT LAT FT -Current Size (cm) - Length 0.1 0.5 -Current Size (cm) - Width 0.1 0.4 -Current Size (cm) - Depth 0.1 0.1 -Total Square Cm 0.01 0.20 -Exudate Amt Small Small -Exudate Type Serosanguineous Serosanguineous -Wound Margin Distinct, Distinct, Outline Outline Attached Attached -Granulation Amt Large (67-100%) Medium (34-66%) -Granulation Quality [place] -Necrosis Amt Medium (34-66%) -Necrotic Tissue Type Adherent Slough -Texture (Michell-wound Skin Appearance) Assessed Assessed -Moisture (Michell-wound Skin Appearance) Assessed Assessed -Color (Michell-wound Skin Appearance) Assessed Assessed -Temperature (Michell-wound Skin No Abnormality No Abnormality Appearance) (Pt Warm) (Pt Warm) -Tenderness on Palpation (Michell-wound No No Skin Appearance) -Ulcer Cleansing Soap and Water Soap and Water -Foul Odor after Cleansing No -Anesthetic Used 5% Lidocaine 5% Lidocaine Gel Gel #3 RT LAT LEG CLUSTER -Current Size (cm) - Length 0.1 0.1 -Current Size (cm) - Width 0.1 0.1 -Current Size (cm) - Depth 0.1 0.1 -Total Square Cm 0.01 0.01 -Exudate Amt Small -Exudate Type Serosanguineous -Wound Margin Distinct, Outline Attached -Granulation Amt Large (67-100%) -Granulation Quality Red -Texture (Michell-wound Skin Appearance) Assessed Assessed -Moisture (Michell-wound Skin Appearance) Assessed Assessed -Color (Michell-wound Skin Appearance) Assessed Assessed -Temperature (Michell-wound Skin No Abnormality No Abnormality Appearance) (Pt Warm) (Pt Warm) -Tenderness on Palpation (Michell-wound No Skin Appearance) -Ulcer Cleansing Soap and Water Soap and Water -Anesthetic Used 5% Lidocaine Gel #2 RT GOODE -Current Size (cm) - Length 0.3 -Current Size (cm) - Width 0.2 -Current Size (cm) - Depth 0.1 -Total Square Cm 0.06 -Exudate Amt Small -Exudate Type Serosanguineous -Wound Margin Distinct, Outline Attached -Granulation Amt Large (67-100%) -Granulation Quality Red -Texture (Michell-wound Skin Appearance) Assessed -Moisture (Michell-wound Skin Appearance) Assessed -Color (Michell-wound Skin Appearance) Assessed, Hemosiderin Staining -Temperature (Michell-wound Skin No Abnormality Appearance) (Pt Warm) -Ulcer Cleansing Soap and Water -Foul Odor after Cleansing No -Anesthetic Used 5% Lidocaine Gel #1 LT STUMP -Current Size (cm) - Length 0.6 0.3 0.1 -Current Size (cm) - Width 0.6 0.2 0.1 -Current Size (cm) - Depth 3 2 0.1 -Total Square Cm 0.36 0.06 0.01 -Circular Undermining Yes -Exudate Amt Medium Medium -Exudate Type Serosanguineous Serosanguineous -Wound Margin Distinct, Distinct, Outline Outline Attached Attached -Granulation Amt Large (67-100%) Large (67-100%) -Granulation Quality [place] -Texture (Michell-wound Skin Appearance) Assessed Assessed Assessed -Moisture (Michell-wound Skin Appearance) Assessed Assessed Assessed -Color (Michell-wound Skin Appearance) Assessed Assessed Assessed -Temperature (Michell-wound Skin No Abnormality No Abnormality No Abnormality Appearance) (Pt Warm) (Pt Warm) (Pt Warm) -Tenderness on Palpation (Michell-wound No No No Skin Appearance) -Ulcer Cleansing Soap and Water Soap and Water Rinsed/ Irrigated with Saline -Foul Odor after Cleansing No No No -Anesthetic Used 5% Lidocaine 5% Lidocaine 5% Lidocaine Gel Gel Gel -Wound Comment(s) scabbed #7 RT LAT GREAT TOE -Current Size (cm) - Length -Current Size (cm) - Width -Current Size (cm) - Depth -Total Square Cm -Date of Last Picture (Recall this field) -Texture (Michell-wound Skin Appearance) -Moisture (Michell-wound Skin Appearance) -Color (Michell-wound Skin Appearance) -Temperature (Michell-wound Skin Appearance) -Tenderness on Palpation (Michell-wound Skin Appearance) -Ulcer Cleansing -Anesthetic Used -Wound Comment(s) #6 RT 2ND TOE -Current Size (cm) - Length 0.5 0.1 0.1 -Current Size (cm) - Width 0.5 0.1 0.1 -Current Size (cm) - Depth 0.1 0.1 1 -Total Square Cm 0.25 0.01 0.01 -Exudate Amt Medium -Exudate Type Serosanguineous -Wound Margin Distinct, Outline Attached -Granulation Amt Large (67-100%) -Granulation Quality Red -Necrosis Amt Small (1-33%) -Necrotic Tissue Type Adherent Slough -Texture (Michell-wound Skin Appearance) Assessed Assessed -Moisture (Michell-wound Skin Appearance) Assessed Assessed -Color (Michell-wound Skin Appearance) Assessed Assessed -Temperature (Michell-wound Skin No Abnormality No Abnormality Appearance) (Pt Warm) (Pt Warm) -Tenderness on Palpation (Michell-wound No No Skin Appearance) -Ulcer Cleansing Soap and Water Soap and Water -Foul Odor after Cleansing No -Anesthetic Used 5% Lidocaine 5% Lidocaine Gel Gel -Wound Comment(s) scabbed #4 RT LAT ANKLE -Current Size (cm) - Length 1 0.7 0.8 -Current Size (cm) - Width 0.8 0.5 0.6 -Current Size (cm) - Depth 0.3 0.3 0.3 -Total Square Cm 0.8 0.35 0.48 -Exudate Amt Small Small Small -Exudate Type Serosanguineous Serosanguineous Serosanguineous -Wound Margin Distinct, Distinct, Distinct, Outline Outline Outline Attached Attached Attached -Granulation Amt Large (67-100%) Large (67-100%) Large (67-100%) -Granulation Quality Red Red Red -Necrosis Amt Small (1-33%) Small (1-33%) Small (1-33%) -Necrotic Tissue Type Adherent Slough Adherent Slough Adherent Slough -Texture (Michell-wound Skin Appearance) Assessed Assessed Assessed -Moisture (Michell-wound Skin Appearance) Assessed Assessed Assessed -Color (Michell-wound Skin Appearance) Assessed, Assessed Assessed Hemosiderin Staining -Temperature (Michell-wound Skin No Abnormality No Abnormality No Abnormality Appearance) (Pt Warm) (Pt Warm) (Pt Warm) -Tenderness on Palpation (Michell-wound No No Skin Appearance) -Ulcer Cleansing Soap and Water Soap and Water Rinsed/ Irrigated with Saline -Foul Odor after Cleansing No No -Anesthetic Used 5% Lidocaine 5% Lidocaine 5% Lidocaine Gel Gel Gel Right Calf (cm) Right Ankle (cm) 11/04/23 11/11/23 09:02 09:01 Wound Center Nurse 1 #5 RT LAT FT -Current Size (cm) - Length -Current Size (cm) - Width -Current Size (cm) - Depth -Total Square Cm -Exudate Amt -Exudate Type -Wound Margin -Granulation Amt -Granulation Quality -Necrosis Amt -Necrotic Tissue Type -Texture (Michell-wound Skin Appearance) -Moisture (Michell-wound Skin Appearance) -Color (Michell-wound Skin Appearance) -Temperature (Michell-wound Skin Appearance) -Tenderness on Palpation (Michell-wound Skin Appearance) -Ulcer Cleansing -Foul Odor after Cleansing -Anesthetic Used #3 RT LAT LEG CLUSTER -Current Size (cm) - Length -Current Size (cm) - Width -Current Size (cm) - Depth -Total Square Cm -Exudate Amt -Exudate Type -Wound Margin -Granulation Amt -Granulation Quality -Texture (Michell-wound Skin Appearance) -Moisture (Michell-wound Skin Appearance) -Color (Michell-wound Skin Appearance) -Temperature (Michell-wound Skin Appearance) -Tenderness on Palpation (Michell-wound Skin Appearance) -Ulcer Cleansing -Anesthetic Used #2 RT GOODE -Current Size (cm) - Length -Current Size (cm) - Width -Current Size (cm) - Depth -Total Square Cm -Exudate Amt -Exudate Type -Wound Margin -Granulation Amt -Granulation Quality -Texture (Michell-wound Skin Appearance) -Moisture (Michell-wound Skin Appearance) -Color (Michell-wound Skin Appearance) -Temperature (Michell-wound Skin Appearance) -Ulcer Cleansing -Foul Odor after Cleansing -Anesthetic Used #1 LT STUMP -Current Size (cm) - Length -Current Size (cm) - Width -Current Size (cm) - Depth -Total Square Cm -Circular Undermining -Exudate Amt -Exudate Type -Wound Margin -Granulation Amt -Granulation Quality -Texture (Michell-wound Skin Appearance) -Moisture (Michell-wound Skin Appearance) -Color (Michell-wound Skin Appearance) -Temperature (Michell-wound Skin Appearance) -Tenderness on Palpation (Michell-wound Skin Appearance) -Ulcer Cleansing -Foul Odor after Cleansing -Anesthetic Used -Wound Comment(s) #7 RT LAT GREAT TOE -Current Size (cm) - Length 0.1 -Current Size (cm) - Width 0.1 -Current Size (cm) - Depth 0.1 -Total Square Cm 0.01 -Date of Last Picture (Recall this 11/11/23 field) -Texture (Michell-wound Skin Appearance) Assessed -Moisture (Michell-wound Skin Appearance) Assessed -Color (Michell-wound Skin Appearance) Assessed -Temperature (Michell-wound Skin No Abnormality Appearance) (Pt Warm) -Tenderness on Palpation (Michell-wound No Skin Appearance) -Ulcer Cleansing Rinsed/ Irrigated with Saline -Anesthetic Used 5% Lidocaine Gel -Wound Comment(s) INTACT BLISTER AT THIS TIME #6 RT 2ND TOE -Current Size (cm) - Length 1 0.1 -Current Size (cm) - Width 1 0.1 -Current Size (cm) - Depth 0.1 -Total Square Cm 1 0.01 -Exudate Amt -Exudate Type -Wound Margin -Granulation Amt -Granulation Quality -Necrosis Amt Large (67-100%) -Necrotic Tissue Type Eschar -Texture (Michell-wound Skin Appearance) Assessed Assessed -Moisture (Michell-wound Skin Appearance) Assessed Assessed -Color (Michell-wound Skin Appearance) Assessed Assessed -Temperature (Michell-wound Skin No Abnormality No Abnormality Appearance) (Pt Warm) (Pt Warm) -Tenderness on Palpation (Michell-wound No No Skin Appearance) -Ulcer Cleansing Rinsed/ Rinsed/ Irrigated with Irrigated with Saline Saline -Foul Odor after Cleansing -Anesthetic Used 5% Lidocaine 5% Lidocaine Gel Gel -Wound Comment(s) scabbed #4 RT LAT ANKLE -Current Size (cm) - Length 0.8 1 -Current Size (cm) - Width 0.9 0.7 -Current Size (cm) - Depth 0.3 0.3 -Total Square Cm 0.72 0.7 -Exudate Amt Small Small -Exudate Type Serosanguineous Serosanguineous -Wound Margin Distinct, Distinct, Outline Outline Attached Attached -Granulation Amt Small (1-33%) Small (1-33%) -Granulation Quality [place] -Necrosis Amt Large (67-100%) Large (67-100%) -Necrotic Tissue Type Adherent Slough Adherent Slough -Texture (Michell-wound Skin Appearance) Assessed, Assessed Localized Edema -Moisture (Michell-wound Skin Appearance) Assessed Assessed -Color (Michell-wound Skin Appearance) Assessed Assessed, Erythema -Temperature (Michell-wound Skin No Abnormality No Abnormality Appearance) (Pt Warm) (Pt Warm) -Tenderness on Palpation (Michell-wound No No Skin Appearance) -Ulcer Cleansing Rinsed/ Rinsed/ Irrigated with Irrigated with Saline Saline -Foul Odor after Cleansing No -Anesthetic Used 5% Lidocaine 5% Lidocaine Gel Gel Right Calf (cm) 48 47 Right Ankle (cm) 28 26 WC - Nurse 2 - General Ulcer CM Notes Start: 10/14/23 09:01 Freq: Status: Active Protocol: Activity Type Activity Date Activity User E-sign Co-sign Detail Recorded Client Recorded Date Recorded By Document 10/14/23 10:05 Laptop 10/14/23 10:16 Document 10/21/23 10:46 [id number] 10/21/23 10:47 Document 10/28/23 09:41 DS [id number] 10/28/23 09:43 DS Edit Result 10/28/23 09:41 DS (1) [id number] 10/28/23 09:44 DS Edit Result 10/28/23 09:41 DS (2) [id number] 10/28/23 10:12 DS Document 11/04/23 09:26 JF [id number] 11/04/23 09:27 JF Document 11/11/23 09:29 JF [id number] 11/11/23 09:40 JF (1) #6 RT 2ND TOE - Time => 09:43 - Correct Patient => Yes - Correct Side, Site, Position => Yes - Correct Procedure => Yes - Procedure Performed => Yes - Type of Procedure => Debridement - Clinical Debridement => Muscle / Fascia - Tissue Removed => Muscle - Post Debridement (cm) - Length => 0.7 - Post Debridement (cm) - Width => 0.7 - Post Debridement (cm) - Depth => 0.1 - Total Square (Post) (cm) => 0.49 - Area of Debridement (cm) - Length => 0.7 - Area of Debridement (cm) - Width => 0.7 - Total Square (Area) (cm) => 0.49 - Tunneling => No - Undermining/Tunneling => No - Circular Undermining => No - Wound/Ulcer Outcome => Not Healed - Ulcer Cleansing => Rinsed/Irrigated => with Saline - Bleeding Controlled with => Pressure,Silver => Nitrate - Treatment Response => Procedure => Tolerated Well - Debridement - Muscle / Fascia, 1st => Yes 20sq cm (2) #6 RT 2ND TOE - Clinical Debridement Muscle / Fascia => Subcutaneous - Tissue Removed Muscle => Subcutaneous - Debridement - Subq, 1st 20sq cm => No - Debridement - Muscle / Fascia, 1st Yes => 20sq cm #4 RT LAT ANKLE - Clinical Debridement Subcutaneous => Muscle / Fascia - Tissue Removed => Muscle - Debridement - Subq, 1st 20sq cm No => - Debridement - Muscle / Fascia, 1st => Yes 20sq cm 10/14/23 10/21/23 10/28/23 10:05 10:46 09:41 Wound Center Nurse 2 #5 RT LAT FT -Time 10:10 -Correct Patient Yes No -Correct Side, Site, Position Yes No -Correct Procedure Yes No -Procedure Performed Yes No -Type of Procedure Debridement -Clinical Debridement Subcutaneous -Tissue Removed Subcutaneous -Post Debridement (cm) - Length 0.4 -Post Debridement (cm) - Width 0.5 -Post Debridement (cm) - Depth 0.1 -Total Square (Post) (cm) 0.20 -Area of Debridement (cm) - Length 0.4 -Area of Debridement (cm) - Width 0.5 -Total Square (Area) (cm) 0.20 -Tunneling No -Undermining/Tunneling No -Circular Undermining No -Wound/Ulcer Outcome Not Healed Not Healed -Ulcer Cleansing Rinsed/ Irrigated with Saline -Foul Odor after Cleansing No -Bioengineered Tissue No -Bleeding Controlled with Pressure -Treatment Response Procedure Tolerated Well -Offloading No -Debridement - Subq, 1st 20sq cm No #3 RT LAT LEG CLUSTER -Time 10:11 -Correct Patient Yes No -Correct Side, Site, Position Yes No -Correct Procedure Yes No -Procedure Performed Yes No -Type of Procedure Debridement -Clinical Debridement Subcutaneous -Tissue Removed Subcutaneous -Post Debridement (cm) - Length 0.3 -Post Debridement (cm) - Width 0.4 -Post Debridement (cm) - Depth 0.1 -Total Square (Post) (cm) 0.12 -Area of Debridement (cm) - Length 0.3 -Area of Debridement (cm) - Width 0.4 -Total Square (Area) (cm) 0.12 -Tunneling No -Undermining/Tunneling No -Circular Undermining No -Wound/Ulcer Outcome Not Healed Not Healed -Ulcer Cleansing Rinsed/ Irrigated with Saline -Bioengineered Tissue No -Bleeding Controlled with Pressure -Treatment Response Procedure Tolerated Well -Offloading No -Debridement - Subq, 1st 20sq cm No #2 RT GOODE -Correct Patient No -Correct Side, Site, Position No -Correct Procedure No -Procedure Performed No #1 LT STUMP -Time 10:12 -Correct Patient Yes No No -Correct Side, Site, Position Yes No No -Correct Procedure Yes No No -Procedure Performed Yes No No -Type of Procedure Debridement -Clinical Debridement Subcutaneous -Tissue Removed Dermis -Post Debridement (cm) - Length 0.3 -Post Debridement (cm) - Width 0.3 -Post Debridement (cm) - Depth 2.2 -Total Square (Post) (cm) 0.09 -Area of Debridement (cm) - Length 0.3 -Area of Debridement (cm) - Width 0.3 -Total Square (Area) (cm) 0.09 -Tunneling No -Undermining/Tunneling No -Circular Undermining No -Wound/Ulcer Outcome Not Healed Not Healed Healed- Epithelialized -Ulcer Cleansing Rinsed/ Irrigated with Saline -Foul Odor after Cleansing No -Bioengineered Tissue No -Bleeding Controlled with Pressure -Treatment Response Procedure Tolerated Well -Offloading No -Debridement - Subq, 1st 20sq cm Yes #7 RT LAT GREAT TOE -Time -Correct Patient -Correct Side, Site, Position -Correct Procedure -Procedure Performed -Tunneling -Undermining/Tunneling -Wound/Ulcer Outcome -I&D / Paring / Biopsy #6 RT 2ND TOE -Time 10:10 09:43 -Correct Patient Yes No Yes -Correct Side, Site, Position Yes No Yes -Correct Procedure Yes No Yes -Procedure Performed Yes No Yes -Type of Procedure Debridement Debridement -Clinical Debridement Subcutaneous Subcutaneous -Tissue Removed Subcutaneous Subcutaneous -Post Debridement (cm) - Length 0.7 0.7 -Post Debridement (cm) - Width 0.7 0.7 -Post Debridement (cm) - Depth 0.1 0.1 -Total Square (Post) (cm) 0.49 0.49 -Area of Debridement (cm) - Length 0.7 0.7 -Area of Debridement (cm) - Width 0.7 0.7 -Total Square (Area) (cm) 0.49 0.49 -Tunneling No No -Undermining/Tunneling No No -Circular Undermining No No -Wound/Ulcer Outcome Not Healed Not Healed Not Healed -Ulcer Cleansing Rinsed/ Rinsed/ Irrigated with Irrigated with Saline Saline -Foul Odor after Cleansing No -Bioengineered Tissue No -Bleeding Controlled with Pressure Pressure,Silver Nitrate -Treatment Response Procedure Procedure Tolerated Well Tolerated Well -Offloading No -Debridement - Subq, 1st 20sq cm No No #4 RT LAT ANKLE -Time 10:11 09:42 -Correct Patient Yes No Yes -Correct Side, Site, Position Yes No Yes -Correct Procedure Yes No Yes -Procedure Performed Yes No Yes -Type of Procedure Debridement Debridement -Clinical Debridement Muscle / Fascia Muscle / Fascia -Tissue Removed Muscle,Fascia Muscle -Post Debridement (cm) - Length 0.9 0.9 -Post Debridement (cm) - Width 0.8 0.9 -Post Debridement (cm) - Depth 0.2 0.3 -Total Square (Post) (cm) 0.72 0.81 -Area of Debridement (cm) - Length 0.9 0.9 -Area of Debridement (cm) - Width 0.8 0.9 -Total Square (Area) (cm) 0.72 0.81 -Tunneling No No -Undermining/Tunneling No No -Circular Undermining No No -Wound/Ulcer Outcome Not Healed Not Healed Not Healed -Ulcer Cleansing Rinsed/ Rinsed/ Irrigated with Irrigated with Saline Saline -Foul Odor after Cleansing No -Bioengineered Tissue No -Type of Bioengineered Tissue -Expiration Date -Product Lot Number -Percent Used -Lot number of Saline Used -Bleeding Controlled with Pressure Pressure -Treatment Response Procedure Procedure Tolerated Well Tolerated Well -Offloading No -Debridement - Subq, 1st 20sq cm No -Debridement - Muscle / Fascia, 1st Yes Yes 20sq cm -Apply Skin Sub - 1st 25 sq cm - Legs -Epicord (per sq cm) Pain Scale: 0-10 Numeric Is Patient Pain Free? Yes Yes Yes 11/04/23 11/11/23 09:26 09:29 Wound Center Nurse 2 #5 RT LAT FT -Time -Correct Patient -Correct Side, Site, Position -Correct Procedure -Procedure Performed -Type of Procedure -Clinical Debridement -Tissue Removed -Post Debridement (cm) - Length -Post Debridement (cm) - Width -Post Debridement (cm) - Depth -Total Square (Post) (cm) -Area of Debridement (cm) - Length -Area of Debridement (cm) - Width -Total Square (Area) (cm) -Tunneling -Undermining/Tunneling -Circular Undermining -Wound/Ulcer Outcome -Ulcer Cleansing -Foul Odor after Cleansing -Bioengineered Tissue -Bleeding Controlled with -Treatment Response -Offloading -Debridement - Subq, 1st 20sq cm #3 RT LAT LEG CLUSTER -Time -Correct Patient -Correct Side, Site, Position -Correct Procedure -Procedure Performed -Type of Procedure -Clinical Debridement -Tissue Removed -Post Debridement (cm) - Length -Post Debridement (cm) - Width -Post Debridement (cm) - Depth -Total Square (Post) (cm) -Area of Debridement (cm) - Length -Area of Debridement (cm) - Width -Total Square (Area) (cm) -Tunneling -Undermining/Tunneling -Circular Undermining -Wound/Ulcer Outcome -Ulcer Cleansing -Bioengineered Tissue -Bleeding Controlled with -Treatment Response -Offloading -Debridement - Subq, 1st 20sq cm #2 RT GOODE -Correct Patient -Correct Side, Site, Position -Correct Procedure -Procedure Performed #1 LT STUMP -Time -Correct Patient -Correct Side, Site, Position -Correct Procedure -Procedure Performed -Type of Procedure -Clinical Debridement -Tissue Removed -Post Debridement (cm) - Length -Post Debridement (cm) - Width -Post Debridement (cm) - Depth -Total Square (Post) (cm) -Area of Debridement (cm) - Length -Area of Debridement (cm) - Width -Total Square (Area) (cm) -Tunneling -Undermining/Tunneling -Circular Undermining -Wound/Ulcer Outcome -Ulcer Cleansing -Foul Odor after Cleansing -Bioengineered Tissue -Bleeding Controlled with -Treatment Response -Offloading -Debridement - Subq, 1st 20sq cm #7 RT LAT GREAT TOE -Time 09:38 -Correct Patient No -Correct Side, Site, Position No -Correct Procedure No -Procedure Performed No -Tunneling No -Undermining/Tunneling No -Wound/Ulcer Outcome Not Healed -I&D / Paring / Biopsy I&D abscess - single or simple #6 RT 2ND TOE -Time -Correct Patient No No -Correct Side, Site, Position No No -Correct Procedure No No -Procedure Performed No No -Type of Procedure -Clinical Debridement -Tissue Removed -Post Debridement (cm) - Length -Post Debridement (cm) - Width -Post Debridement (cm) - Depth -Total Square (Post) (cm) -Area of Debridement (cm) - Length -Area of Debridement (cm) - Width -Total Square (Area) (cm) -Tunneling -Undermining/Tunneling -Circular Undermining -Wound/Ulcer Outcome Not Healed Not Healed -Ulcer Cleansing -Foul Odor after Cleansing -Bioengineered Tissue -Bleeding Controlled with -Treatment Response -Offloading -Debridement - Subq, 1st 20sq cm #4 RT LAT ANKLE -Time 09:26 09:30 -Correct Patient Yes Yes -Correct Side, Site, Position Yes Yes -Correct Procedure Yes Yes -Procedure Performed Yes Yes -Type of Procedure Debridement Debridement -Clinical Debridement Muscle / Fascia Subcutaneous -Tissue Removed Muscle,Fascia Subcutaneous -Post Debridement (cm) - Length 1.0 1.2 -Post Debridement (cm) - Width 1.0 1.0 -Post Debridement (cm) - Depth 0.3 0.3 -Total Square (Post) (cm) 1.00 1.20 -Area of Debridement (cm) - Length 1.0 1.2 -Area of Debridement (cm) - Width 1.0 1.0 -Total Square (Area) (cm) 1.00 1.20 -Tunneling No No -Undermining/Tunneling No No -Circular Undermining No No -Wound/Ulcer Outcome Not Healed Not Healed -Ulcer Cleansing Rinsed/ Rinsed/ Irrigated with Irrigated with Saline Saline -Foul Odor after Cleansing No No -Bioengineered Tissue No Yes -Type of Bioengineered Tissue Epicord -Expiration Date 04/15/28 -Product Lot Number [id number] -Percent Used 100 -Lot number of Saline Used [id number] -Bleeding Controlled with Pressure Pressure -Treatment Response Procedure Procedure Tolerated Well Tolerated Well -Offloading No No -Debridement - Subq, 1st 20sq cm No -Debridement - Muscle / Fascia, 1st Yes 20sq cm -Apply Skin Sub - 1st 25 sq cm - Legs 1 -Epicord (per sq cm) 6 Pain Scale: 0-10 Numeric Is Patient Pain Free? Yes Yes WC - Nurse 3 - General Ulcer D/C NN Start: 10/14/23 09:01 Freq: Status: Active Protocol: Activity Type Activity Date Activity User E-sign Co-sign Detail Recorded Client Recorded Date Recorded By Document 10/14/23 10:50 KW Desktop 10/14/23 10:51 KW Document 10/21/23 10:47 [id number] 10/21/23 10:49 JF Document 10/28/23 10:05 [id number] 10/28/23 10:07 GM Document 11/04/23 09:58 wound center 11/04/23 09:59 GM Document 11/11/23 09:41 KW wound center 11/11/23 09:42 KW 10/14/23 10/21/23 10/28/23 10:50 10:47 10:05 Wound Care Center Nurse 3 #5 RT LAT FT -Foul Odor after Cleansing No -Other Dressing betadine -Primary Dressing Covered/Secured with Dry Gauze Dry Gauze & Roll Gauze #3 RT LAT LEG CLUSTER -Foul Odor after Cleansing No -Other Dressing betadine -Primary Dressing Covered/Secured with Dry Gauze Dry Gauze & Roll Gauze, Secured with Tape #1 LT STUMP -Foul Odor after Cleansing No -Primary Dressing Applied Nugauze, Iodoform 1/4in -Other Dressing betadine -Primary Dressing Covered/Secured with Dry Gauze & Dry Gauze & Roll Gauze, Roll Gauze, Secured with Secured with Tape Tape -Nugauze, Iodoform 1/4in 1 #7 RT LAT GREAT TOE -Other Dressing -Primary Dressing Covered/Secured with #6 RT 2ND TOE -Ulcer Cleansing Not Cleansed -Foul Odor after Cleansing No No -Primary Dressing Applied Promogran Rafaela Matter -Other Dressing betadine -Primary Dressing Covered/Secured with Dry Gauze,Dry Dry Gauze,Dry Dry Gauze,Dry Gauze & Roll Gauze & Roll Gauze & Roll Gauze,Secured Gauze Gauze,Secured with Tape with Tape -Promogran Rafaela Matter 1 #4 RT LAT ANKLE -Ulcer Cleansing Not Cleansed -Foul Odor after Cleansing No No -Primary Dressing Applied Promogran Rafaela Matter -Other Dressing betadine -Primary Dressing Covered/Secured with Dry Gauze Dry Gauze & Dry Gauze & Roll Gauze, Roll Gauze, Secured with Secured with Tape Tape -Promogran Rafaela Matter 1 Left -Lotion applied to leg before No compression wrap -Tubular Bandage Single Layer Single Layer -Size of Tubigrip Used Size E Size E -Size E ($) 1 1 Right -Lotion applied to leg before No compression wrap -Tubular Bandage Single Layer Single Layer -Size of Tubigrip Used Size E Size E -Size E ($) 1 1 -Size F ($) Pain Scale: 0-10 Numeric Is Patient Pain Free? Yes Yes Yes Teaching: Wound Center dressing wound -Person Taught Patient -Teaching Method Discussion -Response to teaching Verbalize understanding WC - Visit Discharge Discharge Condition Stable Stable Stable Ambulatory Status Wheelchair Wheelchair Wheelchair Transportation Private Auto Accompanied by NURSE transfer to ER Medication Reconcilliation completed & No No provided to patient/care provider Clinical Summary of Care Provided Yes No Yes 11/04/23 11/11/23 09:58 09:41 Wound Care Center Nurse 3 #5 RT LAT FT -Foul Odor after Cleansing -Other Dressing -Primary Dressing Covered/Secured with #3 RT LAT LEG CLUSTER -Foul Odor after Cleansing -Other Dressing -Primary Dressing Covered/Secured with #1 LT STUMP -Foul Odor after Cleansing -Primary Dressing Applied -Other Dressing -Primary Dressing Covered/Secured with -Nugauze, Iodoform 1/4in #7 RT LAT GREAT TOE -Other Dressing ATB OINTMENT -Primary Dressing Covered/Secured with Dry Gauze #6 RT 2ND TOE -Ulcer Cleansing Not Cleansed -Foul Odor after Cleansing No -Primary Dressing Applied Promogran Rafaela Matter -Other Dressing LEAVE OIL AGENT -Primary Dressing Covered/Secured with Dry Gauze,Dry Gauze & Roll Gauze,Secured with Tape -Promogran Rafaela Matter 1 #4 RT LAT ANKLE -Ulcer Cleansing Not Cleansed -Foul Odor after Cleansing No -Primary Dressing Applied -Other Dressing -Primary Dressing Covered/Secured with Dry Gauze, Dry Gauze & Secured with Roll Gauze, Tape Secured with Tape -Promogran Rafaela Matter Left -Lotion applied to leg before No compression wrap -Tubular Bandage Single Layer -Size of Tubigrip Used Size E -Size E ($) 1 Right -Lotion applied to leg before No compression wrap -Tubular Bandage Double Layer Double Layer -Size of Tubigrip Used Size E Size F -Size E ($) 2 -Size F ($) 2 Pain Scale: 0-10 Numeric Is Patient Pain Free? Yes Yes Teaching: Wound Center dressing wound -Person Taught -Teaching Method -Response to teaching WC - Visit Discharge Discharge Condition Stable Stable Ambulatory Status Ambulatory Wheelchair Transportation Private Auto Accompanied by Medication Reconcilliation completed & No provided to patient/care provider Clinical Summary of Care Provided Yes Yes Assessment/Plan Assessment/Plan (1) Non-pressure chronic ulcer of right ankle with necrosis of muscle: CODE(S): L97.313 - Non-pressure chronic ulcer of right ankle with necrosis of muscle PLAN: Patient was examined and evaluated. All findings were discussed with the patient. All questions were answered to the patient's satisfaction. Excisional debridement down to and including subcutaneous tissue, fascia and muscle to the right lateral ankle full-thickness ulceration with a number 3 mm dermal curette without incident. Predebridement measurement was 1.0 x 1.0 x 0.2 cm. Postdebridement measurement is 1.2 x 1.0 x 0.3 cm. Topical anesthesia was applied to the right hallux at the level of the deep tissue injury/hematoma. Using a sterile 15 blade incision and drainage was performed to express all fluid without incident. Culture was taken. Triple-lumen antibiotic and a sterile Band-Aid was applied to the right hallux. Cultures will be followed and the patient will be placed on antibiotic coverage after microbiology and sensitivity returns. EpiCord 2.0 x 3.0 cm graft was applied to the right ankle full-thickness ulceration with 100% use. First application. The graft site was free and clear of any infection. The wound/skin graft substitute was dressed with nonadherent bandage secured in place with Steri-Strips followed by bolster dressing as well as a single Tubigrip compression bandage donned to the right lower extremity. Follow-up at the wound care center with Dr. Sarah in 1 week. (2) Other specified peripheral vascular diseases: CODE(S): I73.89 - Other specified peripheral vascular diseases (3) Chronic painful diabetic polyneuropathy: CODE(S): E11.42 - Type 2 diabetes mellitus with diabetic polyneuropathy (4) Contusion of right great toe with damage to nail: CODE(S): S90.211A - Contusion of right great toe with damage to nail, initial encounter QUALIFIERS: Encounter type: initial encounter Qualified Code(s): S90.211A - Contusion of right great toe with damage to nail, initial encounter
--- NOTE | 2023-11-12 12:11 | WC ---
11/11/2023 RIGHT LATERAL GREAT TOE
== END 2023-11-13 23:59 | disposition home or self-care (01) ==
LOC: WC 09:15
PROVIDERS: PCP Internal Medicine Infectious Disease; Referring Provider Internal Medicine Infectious Disease; Visit Provider Podiatrist Foot & Ankle Surgery
DX: E11.621 Type 2 diabetes mellitus with foot ulcer (principal); E11.622 Type 2 diabetes mellitus with other skin ulcer; L97.512 Non-pressure chronic ulcer of other part of right foot with fat layer exposed; L97.812 Non-pressure chronic ulcer of other part of right lower leg with fat layer exposed; L97.822 Non-pressure chronic ulcer of other part of left lower leg with fat layer exposed; Z89.512 Acquired absence of left leg below knee; E11.51 Type 2 diabetes mellitus with diabetic peripheral angiopathy without gangrene; E11.42 Type 2 diabetes mellitus with diabetic polyneuropathy; I10 Essential (primary) hypertension; Z79.01 Long term (current) use of anticoagulants; Z79.899 Other long term (current) drug therapy; L02.416 Cutaneous abscess of left lower limb; S90.211A Contusion of right great toe with damage to nail, initial encounter; W22.03XA Walked into furniture, initial encounter
CPT/HCPCS: 10060; 11042; 11043; 15271; 87070; 87075; 87077; 87101; 87186; 87205; 99214; Q4187; G0463

== ENCOUNTER 2023-12-09 09:00 | Outpatient (RCR) | payer MEDICARE, SELFPAY ==
[2023-11-14 00:19] VITALS: BP 84/34; PULSE 114; RESP 18; TEMP 35.9; BMI 44.4
[2023-11-18 09:05] VITALS: BP 146/62; PULSE 94; RESP 18; TEMP 36.3; BMI 44.4
--- NOTE | 2023-11-18 09:52 | PN.PCM_ITS ---
History of Present Illness Date of Service: 11/18/23 Chief Complaint: Bilateral leg wounds. History of Wound: By leg wounds. Subjective Subjective Mr. Olivares is a 78 old diabetic male presenting to clinic today for follow-up evaluation to the lateral right ankle ulceration. He has kept his graft clean dry and intact. He is nonambulatory and moves around in a wheelchair. He is being good about his blood sugar control. He denies trauma. Denies constitutional symptoms. No other complaints at this time. Objective Data Objective Data Vital Signs: Vital Signs Temp Pulse Resp BP O2 Del Method 97.3 F L 94 18 146/62 H Room Air 11/18/23 09:05 11/18/23 09:05 11/18/23 09:05 11/18/23 09:05 11/18/23 09:05 Oxygen Delivery Method Room Air Weight: 161.479 kg Body Mass Index (BMI) 44.4 Physical Exam Narrative Vascular: DP and PT pulses are faintly palpable to the right lower extremity. DP and PT pulses on Doppler are biphasic. 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 Skin temp great is warm to warm from proximal ankle to distal digits to the right lower extremity. Skin temperature gradient is warm to cool to the need to the BKA stump to left lower extremity. No focal increase appreciated. Evidence of deep tissue injury appreciated to the distal aspect of the right hallux. Neurological: Light touch intact. Protective sentation is diminished. Dermatological: Evidence of deep tissue injury appreciated to the right hallux with evidence of hematoma, improving. Full-thickness ulceration to the right lateral ankle measuring 1.0 x 0.9 x 0.2 cm. Full-thickness ulceration to the right second digit is stable with eschar. Nonpitting edema appreciated to left lower extremity. Excisional debridement down to and including subcutaneous tissue, fascia and muscle to the right lateral ankle full-thickness ulceration with a number 3 mm dermal curette without incident. Predebridement measurement was 0.9 x 0.8 x 0.2 cm. Postdebridement measurement is 1.0 x 0.9 x 0.2 cm. EpiCord 2.0 x 3.0 cm graft was applied to the right ankle full-thickness ulceration with 100% use. Second application. The graft site was free and clear of any infection. The wound/skin graft substitute was dressed with nonadherent bandage secured in place with Steri-Strips followed by bolster dressing as well as a single layer Landis compression bandage down to the right lower extremity. Musculoskeletal: Evidence of varus contracture to the right ankle secondary to tight posterior tibial tendon and anterior tibial tendon. Full range of motion of the knee without pain or crepitus. No pain to palpation to bilateral full-thickness ulcerations. No pain with calf compression bilateral. Debridement Note Debridement Note Debridement Free Text: Excisional debridement down to and including subcutaneous tissue, fascia and muscle to the right lateral ankle full-thickness ulceration with a number 3 mm dermal curette without incident. Predebridement measurement was 0.9 x 0.8 x 0.2 cm. Postdebridement measurement is 1.0 x 0.9 x 0.2 cm. EpiCord 2.0 x 3.0 cm graft was applied to the right ankle full-thickness ulceration with 100% use. Second application. The graft site was free and clear of any infection. The wound/skin graft substitute was dressed with nonadherent bandage secured in place with Steri-Strips followed by bolster d ressing as well as a single layer Landis compression bandage down to the right lower extremity. Post-Debridement Measurements and Additional Note: Post-Debridement Measurements/Treatment - Nurse 1 - General Ulcer Assessment Start: 11/18/23 09:05 Freq: Status: Active Protocol: STARREXKaitlin Activity Type Activity Date Activity User E-sign Co-sign Detail Recorded Client Recorded Date Recorded By Document 11/18/23 09:05 Wound center 11/18/23 09:18 KW 11/18/23 09:05 - Today's Visit Information Type of service Follow-up Visit (Physician/INDUSTRIAL RELATIONS COUNSELOR ) Arrival Mode Wheelchair Accompanied by transport Patient Identification Verified (Name & Yes ) Height and Weight Body Mass Index (BMI) 44.4 BMI Classification Obese Vital Signs Temperature (97.8 F-99.1 F) 97.3 F L Temperature Source Temporal Pulse Rate (60-100) 94 Pulse Location Monitor Respiratory Rate (12-18) 18 Respiratory rate source Monitor Oxygen Delivery Method Room Air Blood Pressure (90/60-120/80) 146/62 H Blood Pressure Mean (mm Hg) 90 Source Monitor Position Sitting Blood Pressure Location Left Forearm History Since Last Visit- (Skip if this is Patient's initial visit) Have you changed medications since your No last visit? Any new allergies or adverse reactions No Had a fall/change in ADL's that may No increase risk of falls Signs or symptoms of abuse and/or No neglect since last visit Have you been in the hospital since your No last visit? Has dressing in place as prescribed Yes Has compression in place as prescribed Yes Has offloadiing in place as prescribed Yes Experienced any changes in pain level or No management Left Footwear Slipper Right Footwear Slipper Pain Scale: 0-10 Numeric Is Patient Pain Free? Yes WC - Nurse 1 - General Ulcer Measurement Start: 11/18/23 09:05 Freq: Status: Active Protocol: Activity Type Activity Date Activity User E-sign Co-sign Detail Recorded Client Recorded Date Recorded By Document 11/18/23 09:05 Wound center 11/18/23 09:18 11/18/23 09:05 Wound Center Nurse 1 #7 RT LAT GREAT TOE -Current Size (cm) - Length 0.1 -Current Size (cm) - Width 0.1 -Current Size (cm) - Depth 0.1 -Total Square Cm 0.01 -Exudate Amt None Present -Wound Margin Distinct, Outline Attached -Texture (Michell-wound Skin Appearance) Assessed -Moisture (Michell-wound Skin Appearance) Assessed -Color (Michell-wound Skin Appearance) Assessed -Temperature (Michell-wound Skin No Abnormality Appearance) (Pt Warm) -Tenderness on Palpation (Michell-wound No Skin Appearance) -Ulcer Cleansing Soap and Water -Foul Odor after Cleansing No #6 RT 2ND TOE -Current Size (cm) - Length 0.1 -Current Size (cm) - Width 0.1 -Current Size (cm) - Depth 0.1 -Total Square Cm 0.01 -Exudate Amt None Present -Wound Margin Distinct, Outline Attached -Texture (Michell-wound Skin Appearance) Assessed -Moisture (Michell-wound Skin Appearance) Assessed -Color (Michell-wound Skin Appearance) Assessed -Temperature (Michell-wound Skin No Abnormality Appearance) (Pt Warm) -Ulcer Cleansing Soap and Water -Anesthetic Used 5% Lidocaine Gel -Wound Comment(s) scabbed #4 RT LAT ANKLE -Current Size (cm) - Length 1.3 -Current Size (cm) - Width 1.1 -Current Size (cm) - Depth 0.1 -Total Square Cm 1.43 -Necrosis Amt Large (67-100%) -Necrotic Tissue Type Eschar -Texture (Michell-wound Skin Appearance) Assessed -Moisture (Michell-wound Skin Appearance) Assessed -Color (Michell-wound Skin Appearance) Assessed -Temperature (Michell-wound Skin No Abnormality Appearance) (Pt Warm) -Tenderness on Palpation (Michell-wound No Skin Appearance) -Ulcer Cleansing Soap and Water -Foul Odor after Cleansing No -Anesthetic Used 5% Lidocaine Gel -Wound Comment(s) scabbed Right Calf (cm) 46 Right Ankle (cm) 28 WC - Nurse 2 - General Ulcer CM Notes Start: 11/18/23 09:05 Freq: Status: Active Protocol: Activity Type Activity Date Activity User E-sign Co-sign Detail Recorded Client Recorded Date Recorded By Document 11/18/23 09:30 SALLY [id number] 11/18/23 09:32 JF 11/18/23 09:30 Wound Center Nurse 2 #7 RT LAT GREAT TOE -Correct Patient No -Correct Side, Site, Position No -Correct Procedure No -Procedure Performed No #6 RT 2ND TOE -Correct Patient No -Correct Side, Site, Position No -Correct Procedure No -Procedure Performed No #4 RT LAT ANKLE -Correct Patient Yes -Correct Side, Site, Position Yes -Correct Procedure Yes -Procedure Performed Yes -Type of Procedure Debridement -Clinical Debridement Subcutaneous -Tissue Removed Subcutaneous -Post Debridement (cm) - Length 1.0 -Post Debridement (cm) - Width 0.9 -Post Debridement (cm) - Depth 0.2 -Total Square (Post) (cm) 0.90 -Area of Debridement (cm) - Length 1.0 -Area of Debridement (cm) - Width 0.9 -Total Square (Area) (cm) 0.90 -Tunneling No -Undermining/Tunneling No -Circular Undermining No -Wound/Ulcer Outcome Not Healed -Ulcer Cleansing Rinsed/ Irrigated with Saline -Foul Odor after Cleansing No -Bioengineered Tissue Yes -Type of Bioengineered Tissue Epicord -Expiration Date 04/15/28 -Product Lot Number [id number] -Percent Used 100 -Lot number of Saline Used [id number] -Bleeding Controlled with Pressure -Treatment Response Procedure Tolerated Well -Offloading No -Assistive Device(s) Wheelchair -Debridement - Subq, 1st 20sq cm No -Apply Skin Sub - 1st 25 sq cm - Legs 1 -Epicord (per sq cm) 6 Pain Scale: 0-10 Numeric Is Patient Pain Free? Yes - Nurse 3 - General Ulcer D/C NN Start: 11/18/23 09:05 Freq: Status: Active Protocol: Activity Type Activity Date Activity User E-sign Co-sign Detail Recorded Client Recorded Date Recorded By Document 11/18/23 09:34 Wound center 11/18/23 09:35 11/18/23 09:34 Wound Care Center Nurse 3 #7 RT LAT GREAT TOE -Primary Dressing Covered/Secured with Dry Gauze #6 RT 2ND TOE -Primary Dressing Covered/Secured with Dry Gauze #4 RT LAT ANKLE -Primary Dressing Covered/Secured with Dry Gauze & Roll Gauze, Secured with Tape Left -Tubular Bandage Single Layer -Size of Tubigrip Used Size F -Size F ($) 1 Right -Tubular Bandage Double Layer -Size of Tubigrip Used Size F -Size F ($) 2 Pain Scale: 0-10 Numeric Is Patient Pain Free? Yes - Visit Discharge Discharge Condition Stable Ambulatory Status Wheelchair Medication Reconcilliation completed & No provided to patient/care provider Clinical Summary of Care Provided Yes Assessment/Plan Assessment/Plan (1) Non-pressure chronic ulcer of other part of right foot with fat layer exposed: CODE(S): L97.512 - Non-pressure chronic ulcer of other part of right foot with fat layer exposed PLAN: Patient was examined and evaluated. All findings were discussed with the patient. All questions were answered to the patient's satisfaction. Excisional debridement down to and including subcutaneous tissue, fascia and muscle to the right lateral ankle full-thickness ulceration with a number 3 mm dermal curette without incident. Predebridement measurement was 0.9 x 0.8 x 0.2 cm. Postdebridement measurement is 1.0 x 0.9 x 0.2 cm. EpiCord 2.0 x 3.0 cm graft was applied to the right ankle full-thickness ulceration with 100% use. Second application. The graft site was free and clear of any infection. The wound/skin graft substitute was dressed with kira dherent bandage secured in place with Steri-Strips followed by bolster dressing as well as a single layer Landis compression bandage down to the right lower extremity. Follow-up at the wound care center with Dr. Sarah in 2 week. (2) Other specified peripheral vascular diseases: CODE(S): I73.89 - Other specified peripheral vascular diseases
[2023-12-02 09:16] VITALS: BP 130/89; PULSE 101; RESP 18; TEMP 35.9; BMI 44.4
--- NOTE | 2023-12-02 11:28 | PCM.WC.PN ---
History of Present Illness Date of Service: 12/02/23 Chief Complaint: Bilateral leg wounds. History of Wound: By leg wounds. Subjective Subjective Mr. Olivares is a 78 old diabetic male presenting to clinic today for follow-up evaluation to the lateral right ankle ulceration. He has kept his graft clean dry and intact. 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 He was seen by nurse practitioner for the ulceration at the nursing center and placed on doxycycline. He has finished his antibiotic. He is nonambulatory and moves around in a wheelchair. He is being good about his blood sugar control. He denies trauma. Denies constitutional symptoms. No other complaints at this time. Objective Data Objective Data Vital Signs: Vital Signs Temp Pulse Resp BP O2 Del Method 96.7 F L 101 H 18 130/89 H Room Air 12/02/23 09:16 12/02/23 09:16 12/02/23 09:16 12/02/23 09:16 12/02/23 09:16 Oxygen Delivery Method Room Air Weight: 161.479 kg Body Mass Index (BMI) 44.4 Physical Exam Narrative Vascular: DP and PT pulses are faintly palpable to the right lower extremity. DP and PT pulses on Doppler are biphasic. 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 Skin temp great is warm to warm from proximal ankle to distal digits to the right lower extremity. Skin temperature gradient is warm to cool to the need to the BKA stump to left lower extremity. No focal increase appreciated. Evidence of deep tissue injury appreciated to the distal aspect of the right hallux. Neurological: Light touch intact. Protective sentation is diminished. Dermatological: Evidence of deep tissue injury appreciated to the right hallux with evidence of hematoma, improving. Full-thickness ulceration to the right lateral ankle measuring 1.0 x 0.8 x 0.3 cm. Full-thickness ulceration to the right second digit is stable with eschar. Nonpitting edema appreciated to left lower extremity. Full-thickness ulceration to the left BKA stump measuring 1.0 x 1.2 x 3.0 cm. There is evidence of 2:00 tunneling. Excisional debridement down to and including subcutaneous tissue of the left lower extremity below-knee amputation full-thickness ulceration with a number 3 mm dermal curette without incident. Predebridement measurement is 0.8 x 1.0 x 0.2 cm. Postdebridement measurement is 1.0 x 1.2 x 3.0 cm. Excisional debridement down to and including subcutaneous tissue, fascia and muscle to the right lateral ankle full-thickness ulceration with a number 3 mm dermal curette without incident. Predebridement measurement was 0.9 x 0.8 x 0.2 cm. Postdebridement measurement is 1.0 x 0.8 x 0.3 cm. EpiCord 2.0 x 3.0 cm graft was applied to the right ankle full-thickness ulceration with 100% use. Third application. The graft site was free and clear of any infection. The wound/skin graft substitute was dressed with nonadherent bandage secured in place with Steri-Strips followed by bolster dressing as well as a single layer Landis compression bandage down to the right lower extremity. Musculoskeletal: Evidence of varus contracture to the right ankle secondary to tight posterior tibial tendon and anterior tibial tendon. Full range of motion of the knee without pain or crepitus. No pain to palpation to bilateral full-thickness ulcerations. No pain with calf compression bilateral. Debridement Note Debridement Note Post-Debridement Measurements and Additional Note: Post-Debridement Measurements/Treatment - Nurse 1 - General Ulcer Assessment Start: 11/18/23 09:05 Freq: Status: Active Protocol: [email or web address] Activity Type Activity Date Activity User E-sign Co-sign Detail Recorded Client Recorded Date Recorded By Document 11/18/23 09:05 KW Wound center 11/18/23 09:18 KW Document 12/02/23 09:16 KW j 12/02/23 09:23 KW 11/18/23 12/02/23 09:05 09:16 - Today's Visit Information Type of service Follow-up Visit Follow-up Visit (Physician/SWEEPER [employer]ACHINE (Physician/SWEEPER [employer] MACHINE ) ) Arrival Mode Wheelchair Ambulatory Accompanied by transport Patient Identification Verified (Name & Yes Yes ) Height and Weight Body Mass Index (BMI) 44.4 44.4 BMI Classification Obese Obese Vital Signs Temperature (97.8 F-99.1 F) 97.3 F L 96.7 F L Temperature Source Temporal Temporal Pulse Rate (60-100) 94 101 H Pulse Location Monitor Respiratory Rate (12-18) 18 18 Respiratory rate source Monitor Observation Oxygen Delivery Method Room Air Room Air Blood Pressure (90/60-120/80) 146/62 H 130/89 H Blood Pressure Mean (mm Hg) 90 102 Source Monitor Monitor Position Sitting Semi-Fowlers Blood Pressure Location Left Forearm Right Arm History Since Last Visit- (Skip if this is Patient's initial visit) Have you changed medications since your No No last visit? Any new allergies or adverse reactions No No Had a fall/change in ADL's that may No No increase risk of falls Signs or symptoms of abuse and/or No No neglect since last visit Have you been in the hospital since your No No last visit? Has dressing in place as prescribed Yes Yes Has compression in place as prescribed Yes Yes Has offloadiing in place as prescribed Yes Yes Experienced any changes in pain level or No No management Left Footwear Slipper No Footwear Right Footwear Slipper Slipper Pain Scale: 0-10 Numeric Is Patient Pain Free? Yes Yes WC - Nurse 1 - General Ulcer Measurement Start: 11/18/23 09:05 Freq: Status: Active Protocol: Activity Type Activity Date Activity User E-sign Co-sign Detail Recorded Client Recorded Date Recorded By Document 11/18/23 09:05 KW Wound center 11/18/23 09:18 KW Document 12/02/23 09:16 KW j 12/02/23 09:23 KW 11/18/23 12/02/23 09:05 09:16 Wound Center Nurse 1 #7 RT LAT GREAT TOE -Current Size (cm) - Length 0.1 0.1 -Current Size (cm) - Width 0.1 0.1 -Current Size (cm) - Depth 0.1 0.1 -Total Square Cm 0.01 0.01 -Date of Last Picture (Recall this 12/02/23 field) -Exudate Amt None Present -Wound Margin Distinct, Outline Attached -Texture (Michell-wound Skin Appearance) Assessed Assessed,Callus -Moisture (Michell-wound Skin Appearance) Assessed Assessed -Color (Michell-wound Skin Appearance) Assessed Assessed -Temperature (Michell-wound Skin No Abnormality No Abnormality Appearance) (Pt Warm) (Pt Warm) -Tenderness on Palpation (Michell-wound No No Skin Appearance) -Ulcer Cleansing Soap and Water Soap and Water -Foul Odor after Cleansing No No -Anesthetic Used 5% Lidocaine Gel -Wound Comment(s) suture intact #6 RT 2ND TOE -Current Size (cm) - Length 0.1 0.6 -Current Size (cm) - Width 0.1 0.8 -Current Size (cm) - Depth 0.1 0 -Total Square Cm 0.01 0.48 -Date of Last Picture (Recall this 12/02/23 field) -Exudate Amt None Present -Wound Margin Distinct, Outline Attached -Texture (Michell-wound Skin Appearance) Assessed Assessed -Moisture (Michell-wound Skin Appearance) Assessed Assessed -Color (Michell-wound Skin Appearance) Assessed Assessed -Temperature (Michell-wound Skin No Abnormality No Abnormality Appearance) (Pt Warm) (Pt Warm) -Tenderness on Palpation (Michell-wound No Skin Appearance) -Ulcer Cleansing Soap and Water Soap and Water -Foul Odor after Cleansing No -Anesthetic Used 5% Lidocaine 5% Lidocaine Gel Gel -Wound Comment(s) scabbed scabbed #4 RT LAT ANKLE -Current Size (cm) - Length 1.3 1.6 -Current Size (cm) - Width 1.1 1 -Current Size (cm) - Depth 0.1 0 -Total Square Cm 1.43 1.6 -Date of Last Picture (Recall this 12/02/23 field) -Wound Margin Distinct, Outline Attached -Necrosis Amt Large (67-100%) Large (67-100%) -Necrotic Tissue Type Eschar Adherent Slough -Texture (Michell-wound Skin Appearance) Assessed Assessed -Moisture (Michell-wound Skin Appearance) Assessed Assessed -Color (Michell-wound Skin Appearance) Assessed Assessed -Temperature (Michell-wound Skin No Abnormality No Abnormality Appearance) (Pt Warm) (Pt Warm) -Tenderness on Palpation (Michell-wound No No Skin Appearance) -Ulcer Cleansing Soap and Water Soap and Water -Foul Odor after Cleansing No No -Anesthetic Used 5% Lidocaine 5% Lidocaine Gel Gel -Wound Comment(s) scabbed Right Calf (cm) 46 45.3 Right Ankle (cm) 28 25.5 WC - Nurse 2 - General Ulcer CM Notes Start: 11/18/23 09:05 Freq: Status: Active Protocol: Activity Type Activity Date Activity User E-sign Co-sign Detail Recorded Client Recorded Date Recorded By Document 11/18/23 09:30 [id number] [id number] 11/18/23 09:32 JF Document 12/02/23 09:53 DS 1 12/02/23 09:58 DS 11/18/23 12/02/23 09:30 09:53 Wound Center Nurse 2 #7 RT LAT GREAT TOE -Correct Patient No -Correct Side, Site, Position No -Correct Procedure No -Procedure Performed No #8 Lt stump -Time 09:30 -Correct Patient Yes -Correct Side, Site, Position Yes -Correct Procedure Yes -Procedure Performed Yes -Type of Procedure Debridement -Clinical Debridement Subcutaneous -Tissue Removed Subcutaneous -Post Debridement (cm) - Length 1.0 -Post Debridement (cm) - Width 1.2 -Post Debridement (cm) - Depth 3.0 -Total Square (Post) (cm) 1.20 -Area of Debridement (cm) - Length 1.0 -Area of Debridement (cm) - Width 1.2 -Total Square (Area) (cm) 1.20 -Tunneling No -Tunneling Position (O'clock) 2 -Tunneling Distance (cm) 3.0 -Undermining/Tunneling No -Circular Undermining No -Wound/Ulcer Outcome Not Healed -Ulcer Cleansing Rinsed/ Irrigated with Saline -Bleeding Controlled with Pressure -Treatment Response Procedure Tolerated Well -Debridement - Subq, 1st 20sq cm Yes #6 RT 2ND TOE -Correct Patient No -Correct Side, Site, Position No -Correct Procedure No -Procedure Performed No #4 RT LAT ANKLE -Time 09:30 -Correct Patient Yes Yes -Correct Side, Site, Position Yes Yes -Correct Procedure Yes Yes -Procedure Performed Yes Yes -Type of Procedure Debridement Debridement -Clinical Debridement Subcutaneous Subcutaneous -Tissue Removed Subcutaneous Subcutaneous -Post Debridement (cm) - Length 1.0 1.0 -Post Debridement (cm) - Width 0.9 0.8 -Post Debridement (cm) - Depth 0.2 0.3 -Total Square (Post) (cm) 0.90 0.80 -Area of Debridement (cm) - Length 1.0 1.0 -Area of Debridement (cm) - Width 0.9 0.8 -Total Square (Area) (cm) 0.90 0.80 -Tunneling No No -Undermining/Tunneling No No -Circular Undermining No No -Wound/Ulcer Outcome Not Healed Not Healed -Ulcer Cleansing Rinsed/ Rinsed/ Irrigated with Irrigated with Saline Saline -Foul Odor after Cleansing No -Bioengineered Tissue Yes Yes -Type of Bioengineered Tissue Epicord Epicord -Expiration Date 04/15/28 06/15/28 -Product Lot Number [id number] -Percent Used 100 100 -Lot number of Saline Used [id number] -Bleeding Controlled with Pressure Pressure -Treatment Response Procedure Procedure Tolerated Well Tolerated Well -Offloading No -Assistive Device(s) Wheelchair -Debridement - Subq, 1st 20sq cm No No -Apply Skin Sub - 1st 25 sq cm - Legs 1 1 -Epicord (per sq cm) 6 6 Pain Scale: 0-10 Numeric Is Patient Pain Free? Yes Yes - Nurse 3 - General Ulcer D/C NN Start: 11/18/23 09:05 Freq: Status: Active Protocol: Activity Type Activity Date Activity User E-sign Co-sign Detail Recorded Client Recorded Date Recorded By Document 11/18/23 09:34 Wound center 11/18/23 09:35 Document 12/02/23 09:59 GM 12/02/23 10:00 11/18/23 12/02/23 09:34 09:59 Wound Care Center Nurse 3 #7 RT LAT GREAT TOE -Primary Dressing Covered/Secured with Dry Gauze #8 Lt stump -Ulcer Cleansing Not Cleansed -Foul Odor after Cleansing No -Primary Dressing Covered/Secured with Dry Gauze,Dry Gauze & Roll Gauze,Secured with Tape #6 RT 2ND TOE -Primary Dressing Covered/Secured with Dry Gauze #4 RT LAT ANKLE -Ulcer Cleansing Not Cleansed -Foul Odor after Cleansing No -Primary Dressing Covered/Secured with Dry Gauze & Dry Gauze,Dry Roll Gauze, Gauze & Roll Secured with Gauze,Secured Tape with Tape Left -Lotion applied to leg before No compression wrap -Tubular Bandage Single Layer Double Layer -Size of Tubigrip Used Size F Size F -Size F ($) 1 2 Right -Lotion applied to leg before No compression wrap -Tubular Bandage Double Layer Double Layer -Size of Tubigrip Used Size F Size F -Size F ($) 2 2 Pain Scale: 0-10 Numeric Is Patient Pain Free? Yes Yes - Visit Discharge Discharge Condition Stable Stable Ambulatory Status Wheelchair Wheelchair Transportation Private Auto Medication Reconcilliation completed & No provided to patient/care provider Clinical Summary of Care Provided Yes Yes Assessment/Plan Assessment/Plan (1) Non-pressure chronic ulcer of right ankle with necrosis of muscle: CODE(S): L97.313 - Non-pressure chronic ulcer of right ankle with necrosis of muscle PLAN: Patient was examined and evaluated. All findings were discussed with the patient. All questions were answered to the patient's satisfaction. Excisional debridement down to and including subcutaneous tissue of the left lower extremity below-knee amputation full-thickness ulceration with a number 3 mm dermal curette without incident. Predebridement measurement is 0.8 x 1.0 x 0.2 cm. Postdebridement measurement is 1.0 x 1.2 x 3.0 cm. Excisional debridement down to and including subcutaneous tissue, fascia and muscle to the right lateral ankle full-thickness ulceration with a number 3 mm dermal curette without incident. Predebridement measurement was 0.9 x 0.8 x 0.2 cm. Postdebridement measurement is 1.0 x 0.8 x 0.3 cm. EpiCord 2.0 x 3.0 cm graft was applied to the right ankle full-thickness ulceration with 100% use. Third application. The graft site was free and clear of any infection. The wound/skin graft substitute was dressed with nonadherent bandage secured in place with Steri-Strips followed by bolster dressing as well as a single layer Landis compression bandage down to the right lower extremity. Culture was taken from the left below-knee amputation full-thickness ulceration. Antibiotics to follow if needed. The patient is already completed a round of doxycycline. The left lower extremity ulceration was dressed with Dakin's packing and we will switch when returning to the assisted facility with iodoform packing quarter-inch to left lower extremity with dry sterile dressing and Tubigrip. Follow-up at the wound care center with Dr. Sarah in 1 week. (2) Non-pressure chronic ulcer of other part of left lower leg with fat layer exposed: CODE(S): L97.822 - Non-pressure chronic ulcer of other part of left lower leg with fat layer exposed (3) Contusion of right great toe with damage to nail: CODE(S): S90.211A - Contusion of right great toe with damage to nail, initial encounter QUALIFIERS: Encounter type: initial encounter Qualified Code(s): S90.211A - Contusion of right great toe with damage to nail, initial encounter (4) Other specified peripheral vascular diseases: CODE(S): I73.89 - Other specified peripheral vascular diseases (5) Chronic painful diabetic polyneuropathy: CODE(S): E11.42 - Type 2 diabetes mellitus with diabetic polyneuropathy
[2023-12-09 08:53] VITALS: BP 116/59; PULSE 88; RESP 18; TEMP 36; BMI 44.4
--- NOTE | 2023-12-09 09:29 | PCM.WC.PN ---
History of Present Illness Date of Service: 12/09/23 Chief Complaint: Bilateral leg wounds. History of Wound: By leg wounds. Subjective Subjective Mr. Olivares is a 78 old diabetic male presenting to clinic today for follow-up evaluation to the lateral right ankle ulceration. He has kept his graft clean dry and intact. 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 He is nonambulatory and moves around in a wheelchair. He denies trauma. Denies constitutional symptoms. No other complaints at this time. Objective Data Objective Data Vital Signs: Vital Signs Temp Pulse Resp BP O2 Del Method 96.8 F L 88 18 116/59 L Room Air 12/09/23 08:53 12/09/23 08:53 12/09/23 08:53 12/09/23 08:53 12/09/23 08:53 Oxygen Delivery Method Room Air Weight: 161.479 kg Body Mass Index (BMI) 44.4 Lab / Micro Data Micro: Microbiology 12/02/23 09:35 Wound - Leg, Left Gram Stain - Final 12/02/23 09:35 Wound - Leg, Left Wound Culture - Final Staphylococcus aureus 12/02/23 09:35 Wound - Leg, Left Anaerobic Culture - Final No anaerobic bacteria isolated. Physical Exam Narrative Vascular: DP and PT pulses are faintly palpable to the right lower extremity. DP and PT pulses on Doppler are biphasic. 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 Skin temp great is warm to warm from proximal ankle to distal digits to the right lower extremity. Skin temperature gradient is warm to warm to the need to the BKA stump to left lower extremity. Blanchable erythema to left BKA stump. Evidence of deep tissue injury appreciated to the distal aspect of the right hallux, improved. Neurological: Light touch intact. Protective sentation is diminished. Dermatological: Evidence of deep tissue injury appreciated to the right hallux with evidence of hematoma, improving. Full-thickness ulceration to the right lateral ankle measuring 1.0 x 0.8 x 0.2 cm. Full-thickness ulceration to the right second digit is stable with eschar. Nonpitting edema appreciated to left lower extremity. Full-thickness ulceration to the left BKA stump measuring 0.8 x 0.7 x 1.4 cm. Tunneling improved to left BKA stump. Blanchable erythema to the left BKA stump Excisional debridement down to and including subcutaneous tissue of the left lower extremity below-knee amputation full-thickness ulceration with a number 3 mm dermal curette without incident. Predebridement measurement is 0.7 x 0.69 x 1.2 cm. Postdebridement measurement is 0.8 x 0.7 x 1.4 cm. Excisional debridement down to and including subcutaneous tissue, fascia and muscle to the right lateral ankle full-thickness ulceration with a number 3 mm dermal curette without incident. Predebridement measurement was 0.9 x 0.8 x 0.2 cm. Postdebridement measurement is 1.0 x 0.8 x 0.2 cm. EpiCord 2.0 x 3.0 cm graft was applied to the right ankle full-thickness ulceration with 100% use. Fourth application. The graft site was free and clear of any infection. The wound/skin graft substitute was dressed with nonadherent bandage secured in place with Steri-Strips followed by bolster dressing as well as a single layer Landis compression bandage down to the right lower extremity. Musculoskeletal: Evidence of varus contracture to the right ankle secondary to tight posterior tibial tendon and anterior tibial tendon. Full range of motion of the knee without pain or crepitus. No pain to palpation to bilateral full-thickness ulcerations. No pain with calf compression bilateral. Debridement Note Debridement Note Debridement Free Text: Excisional debridement down to and including subcutaneous tissue of the left lower extremity below-knee amputation full-thickness ulceration with a number 3 mm dermal curette without incident. Predebridement measurement is 0.7 x 0.69 x 1.2 cm. Postdebridement measurement is 0.8 x 0.7 x 1.4 cm. Excisional debridement down to and including subcutaneous tissue, fascia and muscle to the right lateral ankle full-thickness ulceration with a number 3 mm dermal curette without incident. Predebridement measurement was 0.9 x 0.8 x 0.2 cm. Postdebridement measurement is 1.0 x 0.8 x 0.2 cm. EpiCord 2.0 x 3.0 cm graft was applied to the right ankle full-thickness ulceration with 100% use. Fourth application. The graft site was free and clear of any infection. The wound/skin graft substitute was dressed with nonadherent bandage secured in place with Steri-Strips followed by bolster dressing as well as a single layer Landis compression bandage down to the right lower extremity. Post-Debridement Measurements and Additional Note: Post-Debridement Measurements/Treatment WC - Nurse 1 - General Ulcer Assessment Start: 11/18/23 09:05 Freq: Status: Active Protocol: FABIENNE Activity Type Activity Date Activity User E-sign Co-sign Detail Recorded Client Recorded Date Recorded By Document 11/18/23 09:05 KW Wound center 11/18/23 09:18 KW Document 12/02/23 09:16 KW j 12/02/23 09:23 KW Document 12/09/23 08:53 KW ; 12/09/23 09:00 KW 11/18/23 12/02/23 12/09/23 09:05 09:16 08:53 WC - Today's Visit Information Type of service Follow-up Visit Follow-up Visit Follow-up Visit (Physician/MACHINE STONE POLISHER (Physician/MACHINE STONE POLISHER (Physician/MACHINE STONE POLISHER ) ) ) Arrival Mode Wheelchair Ambulatory Wheelchair Accompanied by transport Patient Identification Verified (Name & Yes Yes Yes ) Height and Weight Body Mass Index (BMI) 44.4 44.4 44.4 BMI Classification Obese Obese Obese Vital Signs Temperature (97.8 F-99.1 F) 97.3 F L 96.7 F L 96.8 F L Temperature Source Temporal Temporal Temporal Pulse Rate (60-100) 94 101 H 88 Pulse Location Monitor Monitor Respiratory Rate (12-18) 18 18 18 Respiratory rate source Monitor Observation Observation Oxygen Delivery Method Room Air Room Air Room Air Blood Pressure (90/60-120/80) 146/62 H 130/89 H 116/59 L Blood Pressure Mean (mm Hg) 90 102 78 Source Monitor Monitor Monitor Position Sitting Semi-Fowlers Sitting Blood Pressure Location Left Forearm Right Arm Left Forearm History Since Last Visit- (Skip if this is Patient's initial visit) Have you changed medications since your No No No last visit? Any new allergies or adverse reactions No No No Had a fall/change in ADL's that may No No No increase risk of falls Signs or symptoms of abuse and/or No No No neglect since last visit Have you been in the hospital since your No No No last visit? Has dressing in place as prescribed Yes Yes Yes Has compression in place as prescribed Yes Yes Yes Has offloadiing in place as prescribed Yes Yes Yes Experienced any changes in pain level or No No No management Left Footwear Slipper No Footwear No Footwear Right Footwear Slipper Slipper No Footwear Pain Scale: 0-10 Numeric Is Patient Pain Free? Yes Yes Yes WC - Nurse 1 - General Ulcer Measurement Start: 11/18/23 09:05 Freq: Status: Active Protocol: Activity Type Activity Date Activity User E-sign Co-sign Detail Recorded Client Recorded Date Recorded By Document 11/18/23 09:05 KW Wound center 11/18/23 09:18 KW Document 12/02/23 09:16 KW j 12/02/23 09:23 KW Document 12/09/23 08:53 KW ; 12/09/23 09:00 KW 11/18/23 12/02/23 12/09/23 09:05 09:16 08:53 Wound Center Nurse 1 #7 RT LAT GREAT TOE -Current Size (cm) - Length 0.1 0.1 -Current Size (cm) - Width 0.1 0.1 -Current Size (cm) - Depth 0.1 0.1 -Total Square Cm 0.01 0.01 -Date of Last Picture (Recall this 12/02/23 field) -Exudate Amt None Present -Wound Margin Distinct, Outline Attached -Texture (Michell-wound Skin Appearance) Assessed Assessed,Callus -Moisture (Michell-wound Skin Appearance) Assessed Assessed -Color (Michell-wound Skin Appearance) Assessed Assessed -Temperature (Michell-wound Skin No Abnormality No Abnormality Appearance) (Pt Warm) (Pt Warm) -Tenderness on Palpation (Michell-wound No No Skin Appearance) -Ulcer Cleansing Soap and Water Soap and Water -Foul Odor after Cleansing No No -Anesthetic Used 5% Lidocaine Gel -Wound Comment(s) suture intact #6 RT 2ND TOE -Combined with other wound No -Current Size (cm) - Length 0.1 0.6 -Current Size (cm) - Width 0.1 0.8 -Current Size (cm) - Depth 0.1 0 -Total Square Cm 0.01 0.48 -Date of Last Picture (Recall this 12/02/23 field) -Exudate Amt None Present -Wound Margin Distinct, Outline Attached -Texture (Michell-wound Skin Appearance) Assessed Assessed -Moisture (Michell-wound Skin Appearance) Assessed Assessed -Color (Michell-wound Skin Appearance) Assessed Assessed -Temperature (Michell-wound Skin No Abnormality No Abnormality Appearance) (Pt Warm) (Pt Warm) -Tenderness on Palpation (Michell-wound No Skin Appearance) -Ulcer Cleansing Soap and Water Soap and Water -Foul Odor after Cleansing No -Anesthetic Used 5% Lidocaine 5% Lidocaine Gel Gel -Wound Comment(s) scabbed scabbed #8 Lt stump -Combined with other wound No -Current Size (cm) - Length 0.9 -Current Size (cm) - Width 1.0 -Current Size (cm) - Depth 1.0 -Total Square Cm 0.90 -Photo Taken No -Epithelialization Small 1-33% -Tunneling No -Undermining/Tunneling No -Circular Undermining No -Exudate Amt Medium -Exudate Type Serosanguineous -Wound Margin Flat & Intact -Granulation Amt Large (67-100%) -Granulation Quality Red -Slough/Fibrin Yes -Necrosis Amt Small (1-33%) -Necrotic Tissue Type Adherent Slough -Structure Exposed N/A -Texture (Michell-wound Skin Appearance) Assessed, Localized Edema -Moisture (Michell-wound Skin Appearance) Assessed,Dry/ Scaly -Color (Michell-wound Skin Appearance) Assessed -Temperature (Michell-wound Skin No Abnormality Appearance) (Pt Warm) -Tenderness on Palpation (Michell-wound No Skin Appearance) -Ulcer Cleansing Wound Cleanser -Foul Odor after Cleansing No -Anesthetic Used 5% Lidocaine Gel #4 RT LAT ANKLE -Combined with other wound No -Current Size (cm) - Length 1.3 1.6 1.4 -Current Size (cm) - Width 1.1 1 1.3 -Current Size (cm) - Depth 0.1 0 0.1 -Total Square Cm 1.43 1.6 1.82 -Date of Last Picture (Recall this 12/02/23 field) -Photo Taken No -Epithelialization Small 1-33% -Tunneling No -Undermining/Tunneling No -Circular Undermining No -Exudate Amt Small -Exudate Type Serosanguineous -Wound Margin Distinct, Indistinct, Non Outline -Visible Attached -Granulation Amt None Present (0 %) -Slough/Fibrin Yes -Necrosis Amt Large (67-100%) Large (67-100%) Large (67-100%) -Necrotic Tissue Type Eschar Adherent Slough Adherent Slough -Structure Exposed N/A -Texture (Michell-wound Skin Appearance) Assessed Assessed Assessed, Localized Edema -Moisture (Michell-wound Skin Appearance) Assessed Assessed Assessed,Dry/ Scaly -Color (Michell-wound Skin Appearance) Assessed Assessed Assessed -Temperature (Michell-wound Skin No Abnormality No Abnormality No Abnormality Appearance) (Pt Warm) (Pt Warm) (Pt Warm) -Tenderness on Palpation (Michell-wound No No No Skin Appearance) -Ulcer Cleansing Soap and Water Soap and Water Wound Cleanser -Foul Odor after Cleansing No No No -Anesthetic Used 5% Lidocaine 5% Lidocaine 5% Lidocaine Gel Gel Gel -Wound Comment(s) scabbed Lower Limb Edema Present Yes Right Calf (cm) 46 45.3 45 Right Ankle (cm) 28 25.5 25 Left Calf (cm) 43.0 WC - Nurse 2 - General Ulcer CM Notes Start: 11/18/23 09:05 Freq: Status: Active Protocol: Activity Type Activity Date Activity User E-sign Co-sign Detail Recorded Client Recorded Date Recorded By Document 11/18/23 09:30 [id number] 11/18/23 09:32 JF Document 12/02/23 09:53 DS 1 12/02/23 09:58 DS Document 12/09/23 09:10 JF 000 12/09/23 09:13 JF 11/18/23 12/02/23 12/09/23 09:30 09:53 09:10 Wound Center Nurse 2 #7 RT LAT GREAT TOE -Correct Patient No -Correct Side, Site, Position No -Correct Procedure No -Procedure Performed No #6 RT 2ND TOE -Correct Patient No No -Correct Side, Site, Position No No -Correct Procedure No No -Procedure Performed No No -Post Debridement (cm) - Length 0 -Post Debridement (cm) - Width 0 -Post Debridement (cm) - Depth 0 -Total Square (Post) (cm) 0 -Area of Debridement (cm) - Length 0 -Area of Debridement (cm) - Width 0 -Total Square (Area) (cm) 0 -Wound/Ulcer Outcome Healed- Epithelialized #8 Lt stump -Time 09:30 09:11 -Correct Patient Yes Yes -Correct Side, Site, Position Yes Yes -Correct Procedure Yes Yes -Procedure Performed Yes Yes -Type of Procedure Debridement Debridement -Clinical Debridement Subcutaneous Subcutaneous -Tissue Removed Subcutaneous Subcutaneous -Post Debridement (cm) - Length 1.0 0.8 -Post Debridement (cm) - Width 1.2 0.7 -Post Debridement (cm) - Depth 3.0 1.4 -Total Square (Post) (cm) 1.20 0.56 -Area of Debridement (cm) - Length 1.0 0.8 -Area of Debridement (cm) - Width 1.2 0.7 -Total Square (Area) (cm) 1.20 0.56 -Tunneling No No -Tunneling Position (O'clock) 2 -Tunneling Distance (cm) 3.0 -Undermining/Tunneling No No -Circular Undermining No No -Wound/Ulcer Outcome Not Healed Not Healed -Ulcer Cleansing Rinsed/ Rinsed/ Irrigated with Irrigated with Saline Saline -Foul Odor after Cleansing No -Bioengineered Tissue No -Bleeding Controlled with Pressure Pressure -Treatment Response Procedure Procedure Tolerated Well Tolerated Well -Offloading No -Debridement - Subq, 1st 20sq cm Yes Yes #4 RT LAT ANKLE -Time 09:30 09:11 -Correct Patient Yes Yes Yes -Correct Side, Site, Position Yes Yes Yes -Correct Procedure Yes Yes Yes -Procedure Performed Yes Yes Yes -Type of Procedure Debridement Debridement Debridement -Clinical Debridement Subcutaneous Subcutaneous Subcutaneous -Tissue Removed Subcutaneous Subcutaneous Subcutaneous -Post Debridement (cm) - Length 1.0 1.0 1 -Post Debridement (cm) - Width 0.9 0.8 0.8 -Post Debridement (cm) - Depth 0.2 0.3 0.2 -Total Square (Post) (cm) 0.90 0.80 0.8 -Area of Debridement (cm) - Length 1.0 1.0 1 -Area of Debridement (cm) - Width 0.9 0.8 0.8 -Total Square (Area) (cm) 0.90 0.80 0.8 -Tunneling No No No -Undermining/Tunneling No No No -Circular Undermining No No No -Wound/Ulcer Outcome Not Healed Not Healed Not Healed -Ulcer Cleansing Rinsed/ Rinsed/ Rinsed/ Irrigated with Irrigated with Irrigated with Saline Saline Saline -Foul Odor after Cleansing No No -Bioengineered Tissue Yes Yes Yes -Type of Bioengineered Tissue Epicord Epicord Epicord -Expiration Date 04/15/28 06/15/28 04/15/28 -Product Lot Number [id number] -Percent Used 100 100 100 -Lot number of Saline Used [id number] -Bleeding Controlled with Pressure Pressure Pressure -Treatment Response Procedure Procedure Procedure Tolerated Well Tolerated Well Tolerated Well -Offloading No No -Assistive Device(s) Wheelchair -Debridement - Subq, 1st 20sq cm No No No -Apply Skin Sub - 1st 25 sq cm - Legs 1 1 1 -Epicord (per sq cm) 6 6 6 Pain Scale: 0-10 Numeric Is Patient Pain Free? Yes Yes Yes - Nurse 3 - General Ulcer D/C NN Start: 11/18/23 09:05 Freq: Status: Active Protocol: Activity Type Activity Date Activity User E-sign Co-sign Detail Recorded Client Recorded Date Recorded By Document 11/18/23 09:34 Wound center 11/18/23 09:35 Document 12/02/23 09:59 [facility] 12/02/23 10:00 11/18/23 12/02/23 09:34 09:59 Wound Care Center Nurse 3 #7 RT LAT GREAT TOE -Primary Dressing Covered/Secured with Dry Gauze #6 RT 2ND TOE -Primary Dressing Covered/Secured with Dry Gauze #8 Lt stump -Ulcer Cleansing Not Cleansed -Foul Odor after Cleansing No -Primary Dressing Covered/Secured with Dry Gauze,Dry Gauze & Roll Gauze,Secured with Tape #4 RT LAT ANKLE -Ulcer Cleansing Not Cleansed -Foul Odor after Cleansing No -Primary Dressing Covered/Secured with Dry Gauze & Dry Gauze,Dry Roll Gauze, Gauze & Roll Secured with Gauze,Secured Tape with Tape Left -Lotion applied to leg before No compression wrap -Tubular Bandage Single Layer Double Layer -Size of Tubigrip Used Size F Size F -Size F ($) 1 2 Right -Lotion applied to leg before No compression wrap -Tubular Bandage Double Layer Double Layer -Size of Tubigrip Used Size F Size F -Size F ($) 2 2 Pain Scale: 0-10 Numeric Is Patient Pain Free? Yes Yes - Visit Discharge Discharge Condition Stable Stable Ambulatory Status Wheelchair Wheelchair Transportation Private Auto Medication Reconcilliation completed & No provided to patient/care provider Clinical Summary of Care Provided Yes Yes Assessment/Plan Assessment/Plan (1) Non-pressure chronic ulcer of right ankle with necrosis of muscle: CODE(S): L97.313 - Non-pressure chronic ulcer of right ankle with necrosis of muscle PLAN: Patient was examined and evaluated. All findings were discussed with the patient. All questions were answered to the patient's satisfaction. Excisional debridement down to and including subcutaneous tissue of the left lower extremity below-knee amputation full-thickness ulceration with a number 3 mm dermal curette without incident. Predebridement measurement is 0.7 x 0.69 x 1.2 cm. Postdebridement measurement is 0.8 x 0.7 x 1.4 cm. Excisional debridement down to and including subcutaneous tissue, fascia and muscle to the right lateral ankle full-thickness ulceration with a number 3 mm dermal curette without incident. Predebridement measurement was 0.9 x 0.8 x 0.2 cm. Postdebridement measurement is 1.0 x 0.8 x 0.2 cm. EpiCord 2.0 x 3.0 cm graft was applied to the right ankle full-thickness ulceration with 100% use. Fourth application. The graft site was free and clear of any infection. The wound/skin graft substitute was dressed with nonadherent bandage secured in place with Steri-Strips followed by bolster dressing as well as a single layer Landis compression bandage down to the right lower extremity. The patient's cultures showed evidence of Staph aureus growth. The patient does have resistance to multiple antibiotics. The patient will be placed on Bactrim DS twice daily for 2 weeks. He will be following up with his orthopedic surgeon who performed the left lower extremity BKA for evaluation. Follow-up at the wound care center with Dr. Sarah in 1 week. (2) Non-pressure chronic ulcer of other part of left lower leg with fat layer exposed: CODE(S): L97.822 - Non-pressure chronic ulcer of other part of left lower leg with fat layer exposed (3) Contusion of right great toe with damage to nail: CODE(S): S90.211A - Contusion of right great toe with damage to nail, initial encounter QUALIFIERS: Encounter type: initial encounter Qualified Code(s): S90.211A - Contusion of right great toe with damage to nail, initial encounter (4) Other specified peripheral vascular diseases: CODE(S): I73.89 - Other specified peripheral vascular diseases (5) Chronic painful diabetic polyneuropathy: CODE(S): E11.42 - Type 2 diabetes mellitus with diabetic polyneuropathy (6) Cellulitis of left lower extremity: CODE(S): L03.116 - Cellulitis of left lower limb
== END 2023-12-13 23:59 | disposition home or self-care (01) ==
LOC: WC 09:00
PROVIDERS: PCP Internal Medicine Infectious Disease; Referring Provider Internal Medicine Infectious Disease; Visit Provider Podiatrist Foot & Ankle Surgery
DX: E11.622 Type 2 diabetes mellitus with other skin ulcer (principal); L97.312 Non-pressure chronic ulcer of right ankle with fat layer exposed; L97.822 Non-pressure chronic ulcer of other part of left lower leg with fat layer exposed; T87.89 Other complications of amputation stump; E11.51 Type 2 diabetes mellitus with diabetic peripheral angiopathy without gangrene; E11.42 Type 2 diabetes mellitus with diabetic polyneuropathy; Y83.5 Amputation of limb(s) as the cause of abnormal reaction of the patient, or of later complication, without mention of misadventure at the time of the procedure; L03.116 Cellulitis of left lower limb
CPT/HCPCS: 11042; 15271; 87070; 87075; 87077; 87101; 87186; 87205; Q4187

== ENCOUNTER 2024-01-13 09:15 | Outpatient (RCR) | payer MEDICARE, MEDICAID, SELFPAY ==
[2023-12-14 00:30] VITALS: BP 84/34; PULSE 114; RESP 18; TEMP 35.9; BMI 44.4
[2023-12-16 09:16] VITALS: BP 110/68; PULSE 84; RESP 18; TEMP 35.9; BMI 44.4
--- NOTE | 2023-12-16 10:04 | PN.PCM_ITS ---
History of Present Illness Date of Service: 12/16/23 Chief Complaint: Bilateral leg wounds. History of Wound: By leg wounds. Subjective Subjective Mr. Olivares is a 78 old diabetic male presenting to clinic today for follow-up evaluation to the lateral right ankle ulceration. He has kept his graft clean dry and intact. 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 He is nonambulatory and moves around in a wheelchair. Patient saw his orthopedic surgeon, Dr. Ramon for evaluation of the left stump. 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 He denies trauma. Denies constitutional symptoms. No other complaints at this time. Objective Data Objective Data Vital Signs: Vital Signs Temp Pulse Resp BP O2 Del Method 96.7 F L 84 18 110/68 Room Air 12/16/23 09:16 12/16/23 09:16 12/16/23 09:16 12/16/23 09:16 12/16/23 09:16 Oxygen Delivery Method Room Air Weight: 161.479 kg Body Mass Index (BMI) 44.4 Physical Exam Narrative Vascular: DP and PT pulses are faintly palpable to the right lower extremity. DP and PT pulses on Doppler are biphasic. 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 Skin temp great is warm to warm from proximal ankle to distal digits to the right lower extremity. Skin temperature gradient is warm to warm to the need to the BKA stump to left lower extremity. Blanchable erythema to left BKA stump. Evidence of deep tissue injury appreciated to the distal aspect of the right hallux, improved. Neurological: Light touch intact. Protective sentation is diminished. Dermatological: Evidence of deep tissue injury appreciated to the right hallux with evidence of hematoma, improving. Full-thickness ulceration to the right lateral ankle measuring 0.9 x 0.7 x 0.2 cm. Full-thickness ulceration to the right second digit is stable with eschar. Nonpitting edema appreciated to left lower extremity. Full-thickness ulceration to the left BKA stump measuring 0.7 x 0.6 x 1.2 cm. Tunneling improved to left BKA stump. Blanchable erythema to the left BKA stump Excisional debridement down to and including subcutaneous tissue of the left lower extremity below-knee amputation full-thickness ulceration with a number 3 mm dermal curette without incident. Predebridement measurement is 0.6 x 0.6 x 1.0 cm. Postdebridement measurement is 0.7 x 0.6 x 1.2 cm. Excisional debridement down to and including subcutaneous tissue, fascia and muscle to the right lateral ankle full-thickness ulceration with a number 3 mm dermal curette without incident. Predebridement measurement was 0.8 x 0.6 x 0.2 cm. Postdebridement measurement is 0.9 x 0.7 x 0.2 cm. EpiFix 18 mm disc was applied to the right full-thickness ulceration with 100% use. Fifth application. The graft site was free and clear of any infection. The wound/skin graft substitute was dressed with nonadherent bandage secured in place with Steri-Strips followed by bolster dressing as well as a double layer Tubigrip. Musculoskeletal: Evidence of varus contracture to the right ankle secondary to tight posterior tibial tendon and anterior tibial tendon. Full range of motion of the knee without pain or crepitus. No pain to palpation to bilateral full- thickness ulcerations. No pain with calf compression bilateral. Debridement Note Debridement Note Debridement Free Text: Excisional debridement down to and including subcutaneous tissue of the left lower extremity below-knee amputation full-thickness ulceration with a number 3 mm dermal curette without incident. Predebridement measurement is 0.6 x 0.6 x 1.0 cm. Postdebridement measurement is 0.7 x 0.6 x 1.2 cm. Excisional debridement down to and including subcutaneous tissue, fascia and muscle to the right lateral ankle full-thickness ulceration with a number 3 mm dermal curette without incident. Predebridement measurement was 0.8 x 0.6 x 0.2 cm. Postdebridement measurement is 0.9 x 0.7 x 0.2 cm. EpiFix 18 mm disc was applied to the right full-thickness ulceration with 100% use. Fifth application. The graft site was free and clear of any infection. The wound/skin graft substitute was dressed with nonadherent bandage secured in place with Steri-Strips followed by bolster dressing as well as a double layer Tubigrip. Post-Debridement Measurements and Additional Note: Post-Debridement Measurements/Treatment JOANA - Nurse 1 - General Ulcer Assessment Start: 12/16/23 09:16 Freq: Status: Active Protocol: WCANTONINA Activity Type Activity Date Activity User E-sign Co-sign Detail Recorded Client Recorded Date Recorded By Document 12/16/23 09:16 KW ; 12/16/23 09:24 KW 12/16/23 09:16 - Today's Visit Information Type of service Follow-up Visit (Physician/[employer] ) Arrival Mode Wheelchair Accompanied by nurse Patient Identification Verified (Name & Yes ) Height and Weight Body Mass Index (BMI) 44.4 BMI Classification Obese Vital Signs Temperature (97.8 F-99.1 F) 96.7 F L Temperature Source Temporal Pulse Rate (60-100) 84 Pulse Location Monitor Respiratory Rate (12-18) 18 Respiratory rate source Observation Oxygen Delivery Method Room Air Blood Pressure (90/60-120/80) 110/68 Blood Pressure Mean (mm Hg) 82 Source Monitor Position Sitting Blood Pressure Location Left Forearm History Since Last Visit- (Skip if this is Patient's initial visit) Have you changed medications since your No last visit? Any new allergies or adverse reactions No Had a fall/change in ADL's that may No increase risk of falls Signs or symptoms of abuse and/or No neglect since last visit Have you been in the hospital since your No last visit? Has dressing in place as prescribed Yes Has compression in place as prescribed Yes Has offloadiing in place as prescribed Yes Experienced any changes in pain level or No management Left Footwear No Footwear Right Footwear No Footwear Pain Scale: 0-10 Numeric Is Patient Pain Free? Yes - Nurse 1 - General Ulcer Measurement Start: 12/16/23 09:16 Freq: Status: Active Protocol: Activity Type Activity Date Activity User E-sign Co-sign Detail Recorded Client Recorded Date Recorded By Document 12/16/23 09:16 KW ; 12/16/23 09:24 KW 12/16/23 09:16 Wound Center Nurse 1 #8 Lt stump -Current Size (cm) - Length 0.8 -Current Size (cm) - Width 0.4 -Current Size (cm) - Depth 1.2 -Total Square Cm 0.32 -Exudate Amt Small -Exudate Type Serosanguineous -Wound Margin Distinct, Outline Attached -Granulation Amt Large (67-100%) -Granulation Quality Red -Texture (Michell-wound Skin Appearance) Assessed -Moisture (Michell-wound Skin Appearance) Assessed -Color (Michell-wound Skin Appearance) Assessed -Temperature (Michell-wound Skin No Abnormality Appearance) (Pt Warm) -Tenderness on Palpation (Michell-wound No Skin Appearance) -Ulcer Cleansing Soap and Water -Foul Odor after Cleansing No -Anesthetic Used 5% Lidocaine Gel #4 RT LAT ANKLE -Current Size (cm) - Length 1 -Current Size (cm) - Width 0.8 -Current Size (cm) - Depth 0.3 -Total Square Cm 0.8 -Granulation Amt Small (1-33%) -Granulation Quality [place] -Necrosis Amt Large (67-100%) -Necrotic Tissue Type Adherent Slough -Texture (Michell-wound Skin Appearance) Assessed -Moisture (Michell-wound Skin Appearance) Assessed -Color (Michell-wound Skin Appearance) Assessed -Temperature ([place]hell-wound Skin No Abnormality Appearance) (Pt Warm) -Tenderness on Palpation (Michell-wound No Skin Appearance) -Ulcer Cleansing Soap and Water -Foul Odor after Cleansing No -Anesthetic Used 5% Lidocaine Gel WC - Nurse 2 - General Ulcer CM Notes Start: 12/16/23 09:16 Freq: Status: Active Protocol: Activity Type Activity Date Activity User E-sign Co-sign Detail Recorded Client Recorded Date Recorded By Document 12/16/23 09:30 JF 0000 12/16/23 09:35 JF 12/16/23 09:30 Wound Center Nurse 2 #8 Lt stump -Time 09:30 -Correct Patient Yes -Correct Side, Site, Position Yes -Correct Procedure Yes -Procedure Performed Yes -Type of Procedure Debridement -Clinical Debridement Subcutaneous -Tissue Removed Subcutaneous -Post Debridement (cm) - Length 0.7 -Post Debridement (cm) - Width 0.6 -Post Debridement (cm) - Depth 1.2 -Total Square (Post) (cm) 0.42 -Area of Debridement (cm) - Length 0.7 -Area of Debridement (cm) - Width 0.6 -Total Square (Area) (cm) 0.42 -Tunneling No -Undermining/Tunneling No -Circular Undermining No -Wound/Ulcer Outcome Not Healed -Ulcer Cleansing Rinsed/ Irrigated with Saline -Foul Odor after Cleansing No -Bioengineered Tissue No -Bleeding Controlled with Pressure -Treatment Response Procedure Tolerated Well -Offloading No -Debridement - Subq, 1st 20sq cm Yes #4 RT LAT ANKLE -Time 09:31 -Correct Patient Yes -Correct Side, Site, Position Yes -Correct Procedure Yes -Procedure Performed Yes -Type of Procedure Debridement -Clinical Debridement Subcutaneous -Tissue Removed Subcutaneous -Post Debridement (cm) - Length 0.9 -Post Debridement (cm) - Width 0.7 -Post Debridement (cm) - Depth 0.2 -Total Square (Post) (cm) 0.63 -Area of Debridement (cm) - Length 0.9 -Area of Debridement (cm) - Width 0.7 -Total Square (Area) (cm) 0.63 -Tunneling No -Undermining/Tunneling No -Circular Undermining No -Wound/Ulcer Outcome Not Healed -Ulcer Cleansing Rinsed/ Irrigated with Saline -Foul Odor after Cleansing No -Bioengineered Tissue Yes -Type of Bioengineered Tissue Epifix 18mm Disc -Expiration Date 06/15/28 -Product Lot Number [id number] -Percent Used 100 -Lot number of Saline Used [id number] -Bleeding Controlled with Pressure -Treatment Response Procedure Tolerated Well -Offloading No -Debridement - Subq, 1st 20sq cm No -Apply Skin Sub - 1st 25 sq cm - Legs 1 -Epifix 18mm Disc 3 Pain Scale: 0-10 Numeric Is Patient Pain Free? Yes - Nurse 3 - General Ulcer D/C NN Start: 12/16/23 09:16 Freq: Status: Active Protocol: Activity Type Activity Date Activity User E-sign Co-sign Detail Recorded Client Recorded Date Recorded By Document 12/16/23 09:41 GM 12/16/23 09:43 GM 12/16/23 09:41 Wound Care Center Nurse 3 #8 Lt stump -Ulcer Cleansing Not Cleansed -Foul Odor after Cleansing No -Primary Dressing Applied Mepilex Border, Nugauze, Iodoform 1/4in -Mepilex Border 1 -Nugauze, Iodoform 1/4in 1 #4 RT LAT ANKLE -Ulcer Cleansing Not Cleansed -Primary Dressing Applied Mepilex Border -Mepilex Border 1 Left -Lotion applied to leg before No compression wrap -Tubular Bandage Double Layer -Size of Tubigrip Used Size F -Size F ($) 2 Right -Lotion applied to leg before No compression wrap -Tubular Bandage Double Layer -Size of Tubigrip Used Size F -Size F ($) 2 Pain Scale: 0-10 Numeric Is Patient Pain Free? Yes WC - Visit Discharge Discharge Condition Stable Ambulatory Status Wheelchair Transportation Private Auto Clinical Summary of Care Provided Yes Assessment/Plan Assessment/Plan (1) Non-pressure chronic ulcer of other part of left lower leg with fat layer exposed: CODE(S): L97.822 - Non-pressure chronic ulcer of other part of left lower leg with fat layer exposed PLAN: Patient was examined and evaluated. All findings were discussed with the patient. All questions were answered to the patient's satisfaction. Excisional debridement down to and including subcutaneous tissue of the left lower extremity below-knee amputation full-thickness ulceration with a number 3 mm dermal curette without incident. Predebridement measurement is 0.6 x 0.6 x 1.0 cm. Postdebridement measurement is 0.7 x 0.6 x 1.2 cm. The left BKA stump was packed with Betadine soaked gauze dry sterile dressing and Tubigrip. The patient will continue iodoform packing at the [facility] with dry sterile dressing and Tubigrip. Patient will continue his antibiotics until complete. He will continue strict blood sugar control. Excisional debridement down to and including subcutaneous tissue, fascia and muscle to the right lateral ankle full-thickness ulceration with a number 3 mm dermal curette without incident. Predebridement measurement was 0.8 x 0.6 x 0.2 cm. Postdebridement measurement is 0.9 x 0.7 x 0.2 cm. EpiFix 18 mm disc was applied to the right full-thickness ulceration with 100% use. Fifth application. The graft site was free and clear of any infection. The wound/skin graft substitute was dressed with nonadherent bandage secured in place with Steri-Strips followed by bolster dressing as well as a double layer Tubigrip. Follow-up at the wound care center with Dr. Sarah in 1 week. 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
[2023-12-23 09:14] VITALS: BP 125/73; PULSE 76; RESP 18; TEMP 35.9; BMI 44.4
--- NOTE | 2023-12-23 11:09 | PN.PCM_ITS ---
History of Present Illness Date of Service: 12/23/23 Chief Complaint: Bilateral leg wounds. History of Wound: By leg wounds. Subjective Subjective Mr. Olivares is a 78 old diabetic male presenting to clinic today for follow-up evaluation to the lateral right ankle ulceration. He has kept his graft clean dry and intact. 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 He is nonambulatory and moves around in a wheelchair. The patient's primary doctor [facility] stop the Bactrim secondary to increase in renal lab studies. Otherwise the patient is improving well. Denies trauma. No constitutional symptoms or no complaints at this time. Objective Data Objective Data Vital Signs: Vital Signs Temp Pulse Resp BP O2 Del Method 96.6 F L 76 18 125/73 H Room Air 12/23/23 09:14 12/23/23 09:14 12/23/23 09:14 12/23/23 09:14 12/23/23 09:14 Oxygen Delivery Method Room Air Weight: 161.479 kg Body Mass Index (BMI) 44.4 Physical Exam Narrative Vascular: DP and PT pulses are faintly palpable to the right lower extremity. DP and PT pulses on Doppler are biphasic. 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 Skin temp great is warm to warm from proximal ankle to distal digits to the right lower extremity. Skin temperature gradient is warm to warm to the need to the BKA stump to left lower extremity. Neurological: Light touch intact. Protective sentation is diminished. Dermatological: Evidence of deep tissue injury appreciated to the right hallux with evidence of hematoma, improving. Full-thickness ulceration to the right lateral ankle measuring 1.0 x 0.9 x 0.5 cm. Full-thickness ulceration to the left BKA stump measuring 0.5 x 0.3 x 0.8 cm. Tunneling improved to left BKA stump. Blanchable erythema to the left BKA stump Excisional debridement down to and including subcutaneous tissue of the left lower extremity below-knee amputation full-thickness ulceration with a number 3 mm dermal curette without incident. Predebridement measurement is 0.4 x 0.2 x 0.6 cm. Postdebridement measurement is 0.5 x 0.3 x 0.8 cm. Excisional debridement down to and including subcutaneous tissue, fascia and muscle to the right lateral ankle full-thickness ulceration with a number 3 mm dermal curette without incident. Predebridement measurement was 0.8 x 0.8 x 0.2 cm. Postdebridement measurement is 1.0 x 0.9 x 0.5 cm. EpiFix 18 mm disc was applied to the right full-thickness ulceration with 100% use. Sixth application. The graft site was free and clear of any infection. The wound/skin graft substitute was dressed with nonadherent bandage secured in place with Steri-Strips followed by bolster dressing as well as a double layer Tubigrip. Musculoskeletal: Evidence of varus contracture to the right ankle secondary to tight posterior tibial tendon and anterior tibial tendon. Full range of motion of the knee without pain or crepitus. No pain to palpation to bilateral full- thickness ulcerations. No pain with calf compression bilateral. Debridement Note Debridement Note Post-Debridement Measurements and Additional Note: Post-Debridement Measurements/Treatment - Nurse 1 - General Ulcer Assessment Start: 12/16/23 09:16 Freq: Status: Active Protocol: FABIENNE Activity Type Activity Date Activity User E-sign Co-sign Detail Recorded Client Recorded Date Recorded By Document 12/16/23 09:16 KW ; 12/16/23 09:24 KW Document 12/23/23 09:14 KW k 12/23/23 09:16 KW 12/16/23 12/23/23 09:16 09:14 - Today's Visit Information Type of service Follow-up Visit Follow-up Visit (Physician/CHILD & ADOLESCENT PSYCHIATRIST (Physician/CHILD & ADOLESCENT PSYCHIATRIST ) ) Arrival Mode Wheelchair Wheelchair Accompanied by nurse nurse Patient Identification Verified (Name & Yes Yes ) Height and Weight Body Mass Index (BMI) 44.4 44.4 BMI Classification Obese Obese Vital Signs Temperature (97.8 F-99.1 F) 96.7 F L 96.6 F L Temperature Source Temporal Temporal Pulse Rate (60-100) 84 76 Pulse Location Monitor Monitor Respiratory Rate (12-18) 18 18 Respiratory rate source Observation Observation Oxygen Delivery Method Room Air Room Air Blood Pressure (90/60-120/80) 110/68 125/73 H Blood Pressure Mean (mm Hg) 82 90 Source Monitor Monitor Position Sitting Sitting Blood Pressure Location Left Forearm Left Arm History Since Last Visit- (Skip if this is Patient's initial visit) Have you changed medications since your No No last visit? Any new allergies or adverse reactions No No Had a fall/change in ADL's that may No No increase risk of falls Signs or symptoms of abuse and/or No No neglect since last visit Have you been in the hospital since your No No last visit? Has dressing in place as prescribed Yes Yes Has compression in place as prescribed Yes Yes Has offloadiing in place as prescribed Yes Yes Experienced any changes in pain level or No No management Left Footwear No Footwear No Footwear Right Footwear No Footwear No Footwear Pain Scale: 0-10 Numeric Is Patient Pain Free? Yes Yes WC - Nurse 1 - General Ulcer Measurement Start: 12/16/23 09:16 Freq: Status: Active Protocol: Activity Type Activity Date Activity User E-sign Co-sign Detail Recorded Client Recorded Date Recorded By Document 12/16/23 09:16 KW ; 12/16/23 09:24 KW Document 12/23/23 09:14 KW k 12/23/23 09:16 KW 12/16/23 12/23/23 09:16 09:14 Wound Center Nurse 1 #8 Lt stump -Current Size (cm) - Length 0.8 0.3 -Current Size (cm) - Width 0.4 0.4 -Current Size (cm) - Depth 1.2 0.7 -Total Square Cm 0.32 0.12 -Date of Last Picture (Recall this 12/23/23 field) -Exudate Amt Small Medium -Exudate Type Serosanguineous Serosanguineous -Wound Margin Distinct, Distinct, Outline Outline Attached Attached -Granulation Amt Large (67-100%) Medium (34-66%) -Granulation Quality Red [place] -Necrosis Amt Medium (34-66%) -Necrotic Tissue Type Adherent Slough -Texture ([place]-wound Skin Appearance) Assessed Assessed -Moisture ([place]-wound Skin Appearance) Assessed Assessed -Color ([place]-wound Skin Appearance) Assessed Assessed, Erythema -Temperature ([place]-wound Skin No Abnormality No Abnormality Appearance) (Pt Warm) (Pt Warm) -Tenderness on Palpation ([place]-wound No No Skin Appearance) -Ulcer Cleansing Soap and Water Soap and Water -Foul Odor after Cleansing No No -Anesthetic Used 5% Lidocaine 5% Lidocaine Gel Gel #4 RT LAT ANKLE -Current Size (cm) - Length 1 1 -Current Size (cm) - Width 0.8 0.7 -Current Size (cm) - Depth 0.3 0.2 -Total Square Cm 0.8 0.7 -Date of Last Picture (Recall this 12/23/23 field) -Exudate Amt Medium -Exudate Type Serosanguineous -Wound Margin Distinct, Outline Attached -Granulation Amt Small (1-33%) Medium (34-66%) -Granulation Quality [place] -Necrosis Amt Large (67-100%) Medium (34-66%) -Necrotic Tissue Type Adherent Slough Adherent Slough -Texture ([place]hell-wound Skin Appearance) Assessed Assessed -Moisture ([place]-wound Skin Appearance) Assessed Assessed -Color ([place]hell-wound Skin Appearance) Assessed Assessed, Erythema -Temperature ([place]-wound Skin No Abnormality No Abnormality Appearance) (Pt Warm) (Pt Warm) -Tenderness on Palpation ([place]-wound No No Skin Appearance) -Ulcer Cleansing Soap and Water Soap and Water -Foul Odor after Cleansing No No -Anesthetic Used 5% Lidocaine 5% Lidocaine Gel Gel Right Calf (cm) 45 Right Ankle (cm) 26.7 WC - Nurse 2 - General Ulcer CM Notes Start: 12/16/23 09:16 Freq: Status: Active Protocol: Activity Type Activity Date Activity User E-sign Co-sign Detail Recorded Client Recorded Date Recorded By Document 12/16/23 09:30 0000 12/16/23 09:35 JF Document 12/23/23 09:36 JF 000 12/23/23 09:40 JF 12/16/23 12/23/23 09:30 09:36 Wound Center Nurse 2 #8 Lt stump -Time 09:30 09:36 -Correct Patient Yes Yes -Correct Side, Site, Position Yes Yes -Correct Procedure Yes Yes -Procedure Performed Yes Yes -Type of Procedure Debridement Debridement -Clinical Debridement Subcutaneous Subcutaneous -Tissue Removed Subcutaneous Subcutaneous -Post Debridement (cm) - Length 0.7 0.5 -Post Debridement (cm) - Width 0.6 0.3 -Post Debridement (cm) - Depth 1.2 0.8 -Total Square (Post) (cm) 0.42 0.15 -Area of Debridement (cm) - Length 0.7 0.5 -Area of Debridement (cm) - Width 0.6 0.3 -Total Square (Area) (cm) 0.42 0.15 -Tunneling No No -Undermining/Tunneling No No -Circular Undermining No No -Wound/Ulcer Outcome Not Healed Not Healed -Ulcer Cleansing Rinsed/ Rinsed/ Irrigated with Irrigated with Saline Saline -Foul Odor after Cleansing No No -Bioengineered Tissue No No -Bleeding Controlled with Pressure Pressure -Treatment Response Procedure Procedure Tolerated Well Tolerated Well -Offloading No No -Debridement - Subq, 1st 20sq cm Yes Yes #4 RT LAT ANKLE -Time 09:31 09:37 -Correct Patient Yes Yes -Correct Side, Site, Position Yes Yes -Correct Procedure Yes Yes -Procedure Performed Yes Yes -Type of Procedure Debridement Debridement -Clinical Debridement Subcutaneous Subcutaneous -Tissue Removed Subcutaneous Subcutaneous -Post Debridement (cm) - Length 0.9 1.0 -Post Debridement (cm) - Width 0.7 0.9 -Post Debridement (cm) - Depth 0.2 0.5 -Total Square (Post) (cm) 0.63 0.90 -Area of Debridement (cm) - Length 0.9 1.0 -Area of Debridement (cm) - Width 0.7 0.9 -Total Square (Area) (cm) 0.63 0.90 -Tunneling No No -Undermining/Tunneling No No -Circular Undermining No No -Wound/Ulcer Outcome Not Healed Not Healed -Ulcer Cleansing Rinsed/ Rinsed/ Irrigated with Irrigated with Saline Saline -Foul Odor after Cleansing No No -Bioengineered Tissue Yes Yes -Type of Bioengineered Tissue Epifix 18mm Epifix 18mm Disc Disc -Expiration Date 06/15/28 07/16/28 -Product Lot Number [id number] -Percent Used 100 100 -Lot number of Saline Used [id number] -Bleeding Controlled with Pressure Pressure -Treatment Response Procedure Procedure Tolerated Well Tolerated Well -Offloading No Yes -Type of Offloading Surgical Shoe -Debridement - Subq, 1st 20sq cm No No -Apply Skin Sub - 1st 25 sq cm - Legs 1 1 -Epifix 18mm Disc 3 3 Pain Scale: 0-10 Numeric Is Patient Pain Free? Yes Yes WC - Nurse 3 - General Ulcer D/C NN Start: 12/16/23 09:16 Freq: Status: Active Protocol: Activity Type Activity Date Activity User E-sign Co-sign Detail Recorded Client Recorded Date Recorded By Document 12/16/23 09:41 GM 12/16/23 09:43 Document 12/23/23 09:45 KW k 12/23/23 09:45 KW 12/16/23 12/23/23 09:41 09:45 Wound Care Center Nurse 3 #8 Lt stump -Ulcer Cleansing Not Cleansed -Foul Odor after Cleansing No -Primary Dressing Applied Mepilex Border, Nugauze, Iodoform 1/4in -Other Dressing pack with pt iodoform -Primary Dressing Covered/Secured with Dry Gauze & Roll Gauze, Secured with Tape -Mepilex Border 1 -Nugauze, Iodoform 1/4in 1 #4 RT LAT ANKLE -Ulcer Cleansing Not Cleansed -Primary Dressing Applied Mepilex Border -Primary Dressing Covered/Secured with Dry Gauze & Roll Gauze, Secured with Tape -Mepilex Border 1 Left -Lotion applied to leg before No compression wrap -Tubular Bandage Double Layer Double Layer -Size of Tubigrip Used Size F Size F -Size F ($) 2 2 Right -Lotion applied to leg before No compression wrap -Tubular Bandage Double Layer Double Layer -Size of Tubigrip Used Size F Size F -Size F ($) 2 2 Pain Scale: 0-10 Numeric Is Patient Pain Free? Yes Yes WC - Visit Discharge Discharge Condition Stable Stable Ambulatory Status Wheelchair Wheelchair Transportation Private Auto Accompanied by nurse Medication Reconcilliation completed & No provided to patient/care provider Clinical Summary of Care Provided Yes Yes Assessment/Plan Assessment/Plan (1) Non-pressure chronic ulcer of other part of left lower leg with fat layer exposed: CODE(S): L97.822 - Non-pressure chronic ulcer of other part of left lower leg with fat layer exposed PLAN: Patient was examined and evaluated. All findings were discussed with the patient. All questions were answered to the patient's satisfaction. Excisional debridement down to and including subcutaneous tissue of the left lower extremity below-knee amputation full-thickness ulceration with a number 3 mm dermal curette without incident. Predebridement measurement is 0.4 x 0.2 x 0.6 cm. Postdebridement measurement is 0.5 x 0.3 x 0.8 cm. Excisional debridement down to and including subcutaneous tissue, fascia and muscle to the right lateral ankle full-thickness ulceration with a number 3 mm dermal curette without incident. Predebridement measurement was 0.8 x 0.8 x 0.2 cm. Postdebridement measurement is 1.0 x 0.9 x 0.5 cm. EpiFix 18 mm disc was applied to the right full-thickness ulceration with 100% use. Sixth application. The graft site was free and clear of any infection. The wound/skin graft substitute was dressed with nonadherent bandage secured in place with Steri-Strips followed by bolster dressing as well as a double layer Tubigrip. Left lower extremity was dressed with iodoform packing dry sterile dressing and Tubigrip. Follow-up at the wound care center with Dr. Sarah in 1 week. (2) Non-pressure chronic ulcer of other part of right foot with fat layer exposed: CODE(S): L97.512 - Non-pressure chronic ulcer of other part of right foot with fat layer exposed (3) Other specified peripheral vascular diseases: CODE(S): I73.89 - Other specified peripheral vascular diseases
--- NOTE | 2023-12-24 10:13 | WC ---
PHOTO 12/23/2023 RIGHT LATERAL ANKLE
--- NOTE | 2023-12-24 10:14 | WC ---
PHOTO 12/23/2023 LT JEF
[2023-12-30 09:17] VITALS: BP 152/67; PULSE 99; RESP 18; BMI 44.4
--- NOTE | 2023-12-30 10:19 | PCM.WC.PN ---
History of Present Illness Date of Service: 12/30/23 Chief Complaint: Bilateral leg wounds. History of Wound: By leg wounds. Subjective Subjective Mr. Olivares is a 78 old diabetic male presenting to clinic today for follow-up evaluation to the lateral right ankle ulceration. He has kept his graft clean dry and intact. He is nonambulatory and moves around in a wheelchair. Patient is improving well. Denies trauma. No constitutional symptoms or no complaints at this time. Objective Data Objective Data Vital Signs: Vital Signs Temp Pulse Resp BP O2 Del Method 96.6 F L 99 18 152/67 H Room Air 12/23/23 09:14 12/30/23 09:17 12/30/23 09:17 12/30/23 09:17 12/23/23 09:14 Oxygen Delivery Method Room Air Weight: 161.479 kg Body Mass Index (BMI) 44.4 Physical Exam Narrative Vascular: DP and PT pulses are faintly palpable to the right lower extremity. DP and PT pulses on Doppler are biphasic. 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 Skin temp great is warm to warm from proximal ankle to distal digits to the right lower extremity. Skin temperature gradient is warm to warm to the need to the BKA stump to left lower extremity. Neurological: Light touch intact. Protective sentation is diminished. Dermatological: Evidence of deep tissue injury appreciated to the right hallux with evidence of hematoma, improving. Full-thickness ulceration to the right lateral ankle measuring 0.9 x 0.9 x 0.2 cm. 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 Tunneling improved to left BKA stump. Blanchable erythema to the left BKA stump Excisional debridement down to and including subcutaneous tissue of the left lower extremity below-knee amputation full-thickness ulceration with a number 3 mm dermal curette without incident. Predebridement measurement is 0.4 x 0.4 x 0.8 cm. Postdebridement measurement is 0.5 x 0.5 x 1.0 cm. Excisional debridement down to and including subcutaneous tissue, fascia and muscle to the right lateral ankle full-thickness ulceration with a number 3 mm dermal curette without incident. Predebridement measurement was 0.8 x 0.8 x 0.2 cm. Postdebridement measurement is 0.9 x 0.9 x 0.2 cm. EpiFix 18 mm disc was applied to the right full-thickness ulceration with 100% use. Seventh application. The graft site was free and clear of any infection. The wound/skin graft substitute was dressed with nonadherent bandage secured in place with Steri-Strips followed by bolster dressing as well as a double layer Tubigrip. Musculoskeletal: Evidence of varus contracture to the right ankle secondary to tight posterior tibial tendon and anterior tibial tendon. Full range of motion of the knee without pain or crepitus. No pain to palpation to bilateral full-thickness ulcerations. No pain with calf compression bilateral. Debridement Note Debridement Note Debridement Free Text: Excisional debridement down to and including subcutaneous tissue of the left lower extremity below-knee amputation full-thickness ulceration with a number 3 mm dermal curette without incident. Predebridement measurement is 0.4 x 0.4 x 0.8 cm. Postdebridement measurement is 0.5 x 0.5 x 1.0 cm. Excisional debridement down to and including subcutaneous tissue, fascia and muscle to the right lateral ankle full-thickness ulceration with a number 3 mm dermal curette without incident. Predebridement measurement was 0.8 x 0.8 x 0.2 cm. Postdebridement measurement is 0.9 x 0.9 x 0.2 cm. EpiFix 18 mm disc was applied to the right full-thickness ulceration with 100% use. Seventh application. The graft site was free and clear of any infection. The wound/skin graft substitute was dressed with nonadherent bandage secured in place with Steri-Strips followed by bolster dressing as well as a double layer Tubigrip. Post-Debridement Measurements and Additional Note: Post-Debridement Measurements/Treatment WC - Nurse 1 - General Ulcer Assessment Start: 12/16/23 09:16 Freq: Status: Active Protocol: FABIENNE Activity Type Activity Date Activity User E-sign Co-sign Detail Recorded Client Recorded Date Recorded By Document 12/16/23 09:16 KW ; 12/16/23 09:24 KW Document 12/23/23 09:14 KW k 12/23/23 09:16 KW Document 12/30/23 09:17 [id number] 12/30/23 09:20 [place] 12/16/23 12/23/2324 09:16 09:14 09:17 - Today's Visit Information Type of service Follow-up Visit Follow-up Visit Follow-up Visit (Physician/ROUGE PRESSER (Physician/ROUGE PRESSER (Physician/ROUGE PRESSER ) ) ) Arrival Mode Wheelchair Wheelchair Wheelchair Accompanied by nurse nurse [facility] [place] Patient Identification Verified (Name & Yes Yes Yes ) Safety Precautions Fall Prevention Height and Weight Body Mass Index (BMI) 44.4 44.4 44.4 BMI Classification Obese Obese Obese Vital Signs Temperature (97.8 F-99.1 F) 96.7 F L 96.6 F L Temperature Source Temporal Temporal Temporal Pulse Rate (60-100) 84 76 99 Pulse Location Monitor Monitor Monitor Respiratory Rate (12-18) 18 18 18 Respiratory rate source Observation Observation Observation Oxygen Delivery Method Room Air Room Air Blood Pressure (90/60-120/80) 110/68 125/73 H 152/67 H Blood Pressure Mean (mm Hg) 82 90 95 Source Monitor Monitor Monitor Position Sitting Sitting Sitting Blood Pressure Location Left Forearm Left Arm Left Arm History Since Last Visit- (Skip if this is Patient's initial visit) Have you changed medications since your No No last visit? Any new allergies or adverse reactions No No Had a fall/change in ADL's that may No No increase risk of falls Signs or symptoms of abuse and/or No No neglect since last visit Have you been in the hospital since your No No last visit? Has dressing in place as prescribed Yes Yes Yes Has compression in place as prescribed Yes Yes Yes Has offloadiing in place as prescribed Yes Yes Yes Experienced any changes in pain level or No No Yes management Left Footwear No Footwear No Footwear Regular Shoe Right Footwear No Footwear No Footwear Regular Shoe Pain Scale: 0-10 Numeric Is Patient Pain Free? Yes Yes Yes - Nurse 1 - General Ulcer Measurement Start: 12/16/23 09:16 Freq: Status: Active Protocol: Activity Type Activity Date Activity User E-sign Co-sign Detail Recorded Client Recorded Date Recorded By Document 12/16/23 09:16 KW ; 12/16/23 09:24 KW Document 12/23/23 09:14 KW k 12/23/23 09:16 KW Document 12/30/23 09:17 [place] [id number] 12/30/23 09:20 MT 12/16/23 12/23/23 12/30/23 09:16 09:14 09:17 Wound Center Nurse 1 #8 Lt stump -Current Size (cm) - Length 0.8 0.3 0.7 -Current Size (cm) - Width 0.4 0.4 0.9 -Current Size (cm) - Depth 1.2 0.7 0.5 -Total Square Cm 0.32 0.12 0.63 -Date of Last Picture (Recall this 12/23/23 field) -Photo Taken No -Epithelialization None Present -Tunneling No -Undermining/Tunneling No -Circular Undermining No -Exudate Amt Small Medium Medium -Exudate Type Serosanguineous Serosanguineous Serosanguineous -Wound Margin Distinct, Distinct, Thickened & Outline Outline Rolled Under Attached Attached -Granulation Amt Large (67-100%) Medium (34-66%) Large (67-100%) -Granulation Quality Red Grenola Pale,Grenola -Necrosis Amt Medium (34-66%) Small (1-33%) -Necrotic Tissue Type Adherent Slough Adherent Slough -Texture (Michell-wound Skin Appearance) Assessed Assessed Assessed -Moisture (Michell-wound Skin Appearance) Assessed Assessed Assessed -Color (Michell-wound Skin Appearance) Assessed Assessed, Assessed Erythema -Temperature (Michell-wound Skin No Abnormality No Abnormality No Abnormality Appearance) (Pt Warm) (Pt Warm) (Pt Warm) -Tenderness on Palpation (Michell-wound No No No Skin Appearance) -Ulcer Cleansing Soap and Water Soap and Water Soap and Water -Foul Odor after Cleansing No No No -Anesthetic Used 5% Lidocaine 5% Lidocaine 5% Lidocaine Gel Gel Gel #4 RT LAT ANKLE -Current Size (cm) - Length 1 1 1.5 -Current Size (cm) - Width 0.8 0.7 1.0 -Current Size (cm) - Depth 0.3 0.2 0.3 -Total Square Cm 0.8 0.7 1.50 -Date of Last Picture (Recall this 12/23/23 field) -Photo Taken No -Tunneling No -Undermining/Tunneling No -Circular Undermining No -Exudate Amt Medium Medium -Exudate Type Serosanguineous Serosanguineous -Wound Margin Distinct, Flat & Intact Outline Attached -Granulation Amt Small (1-33%) Medium (34-66%) Large (67-100%) -Granulation Quality Grenola Grenola Pale,Grenola -Necrosis Amt Large (67-100%) Medium (34-66%) Small (1-33%) -Necrotic Tissue Type Adherent Slough Adherent Slough Adherent Slough -Texture (Michell-wound Skin Appearance) Assessed Assessed Assessed -Moisture (Michell-wound Skin Appearance) Assessed Assessed Assessed -Color (Michell-wound Skin Appearance) Assessed Assessed, Assessed Erythema -Temperature (Michell-wound Skin No Abnormality No Abnormality No Abnormality Appearance) (Pt Warm) (Pt Warm) (Pt Warm) -Tenderness on Palpation (Michell-wound No No No Skin Appearance) -Ulcer Cleansing Soap and Water Soap and Water Soap and Water -Foul Odor after Cleansing No No No -Anesthetic Used 5% Lidocaine 5% Lidocaine 5% Lidocaine Gel Gel Gel Right Calf (cm) 45 45 Right Ankle (cm) 26.7 26.7 WC - Nurse 2 - General Ulcer CM Notes Start: 12/16/23 09:16 Freq: Status: Active Protocol: Activity Type Activity Date Activity User E-sign Co-sign Detail Recorded Client Recorded Date Recorded By Document 12/16/23 09:30 0000 12/16/23 09:35 Document 12/23/23 09:36 000 12/23/23 09:40 Document 12/30/23 09:36 [facility] 12/30/23 09:49 12/16/23 12/23/23 12/30/23 09:30 09:36 09:36 Wound Center Nurse 2 #8 Lt stump -Time 09:30 09:36 09:36 -Correct Patient Yes Yes Yes -Correct Side, Site, Position Yes Yes Yes -Correct Procedure Yes Yes Yes -Procedure Performed Yes Yes Yes -Type of Procedure Debridement Debridement Debridement -Clinical Debridement Subcutaneous Subcutaneous Subcutaneous -Tissue Removed Subcutaneous Subcutaneous Subcutaneous -Post Debridement (cm) - Length 0.7 0.5 0.5 -Post Debridement (cm) - Width 0.6 0.3 0.5 -Post Debridement (cm) - Depth 1.2 0.8 1.0 -Total Square (Post) (cm) 0.42 0.15 0.25 -Area of Debridement (cm) - Length 0.7 0.5 0.5 -Area of Debridement (cm) - Width 0.6 0.3 -Total Square (Area) (cm) 0.42 0.15 -Tunneling No No No -Undermining/Tunneling No No No -Circular Undermining No No No -Wound/Ulcer Outcome Not Healed Not Healed Not Healed -Ulcer Cleansing Rinsed/ Rinsed/ Rinsed/ Irrigated with Irrigated with Irrigated with Saline Saline Saline -Foul Odor after Cleansing No No No -Bioengineered Tissue No No No -Bleeding Controlled with Pressure Pressure Pressure -Treatment Response Procedure Procedure Procedure Tolerated Well Tolerated Well Tolerated Well -Offloading No No -Debridement - Subq, 1st 20sq cm Yes Yes Yes #4 RT LAT ANKLE -Time 09:31 09:37 09:38 -Correct Patient Yes Yes Yes -Correct Side, Site, Position Yes Yes Yes -Correct Procedure Yes Yes Yes -Procedure Performed Yes Yes Yes -Type of Procedure Debridement Debridement Debridement -Clinical Debridement Subcutaneous Subcutaneous Subcutaneous -Tissue Removed Subcutaneous Subcutaneous Subcutaneous -Post Debridement (cm) - Length 0.9 1.0 0.9 -Post Debridement (cm) - Width 0.7 0.9 0.9 -Post Debridement (cm) - Depth 0.2 0.5 0.2 -Total Square (Post) (cm) 0.63 0.90 0.81 -Area of Debridement (cm) - Length 0.9 1.0 0.9 -Area of Debridement (cm) - Width 0.7 0.9 0.9 -Total Square (Area) (cm) 0.63 0.90 0.81 -Tunneling No No No -Undermining/Tunneling No No No -Circular Undermining No No No -Wound/Ulcer Outcome Not Healed Not Healed Not Healed -Ulcer Cleansing Rinsed/ Rinsed/ Rinsed/ Irrigated with Irrigated with Irrigated with Saline Saline Saline -Foul Odor after Cleansing No No No -Bioengineered Tissue Yes Yes Yes -Type of Bioengineered Tissue Epifix 18mm Epifix 18mm Epifix 18mm Disc Disc Disc -Expiration Date 06/15/28 07/16/28 07/16/28 -Product Lot Number [id number] -Percent Used 100 100 100 -Lot number of Saline Used [id number] -Bleeding Controlled with Pressure Pressure Pressure -Treatment Response Procedure Procedure Procedure Tolerated Well Tolerated Well Tolerated Well -Offloading No Yes -Type of Offloading Surgical Shoe -Debridement - Subq, 1st 20sq cm No No No -Apply Skin Sub - 1st 25 sq cm - Legs 1 1 -Epifix 18mm Disc 3 3 3 Pain Scale: 0-10 Numeric Is Patient Pain Free? Yes Yes Yes - Nurse 3 - General Ulcer D/C NN Start: 12/16/23 09:16 Freq: Status: Active Protocol: Activity Type Activity Date Activity User E-sign Co-sign Detail Recorded Client Recorded Date Recorded By Document 12/16/23 09:41 GM wc 12/16/23 09:43 GM Document 12/23/23 09:45 KW k 12/23/23 09:45 KW Document 12/30/23 10:01 KW ; 12/30/23 10:02 KW 12/16/23 12/23/23 12/30/23 09:41 09:45 10:01 Wound Care Center Nurse 3 #8 Lt stump -Ulcer Cleansing Not Cleansed -Foul Odor after Cleansing No -Primary Dressing Applied Mepilex Border, Mepilex Border, Nugauze, Nugauze, Iodoform 1/4in Iodoform 1/4in -Other Dressing pack with pt iodoform -Primary Dressing Covered/Secured with Dry Gauze & Roll Gauze, Secured with Tape -Mepilex Border 1 1 -Nugauze, Iodoform 1/4in 1 1 #4 RT LAT ANKLE -Ulcer Cleansing Not Cleansed -Primary Dressing Applied Mepilex Border Mepilex Border -Primary Dressing Covered/Secured with Dry Gauze & Roll Gauze, Secured with Tape -Mepilex Border 1 1 Left -Lotion applied to leg before No compression wrap -Tubular Bandage Double Layer Double Layer Double Layer -Size of Tubigrip Used Size F Size F Size F -Size F ($) 2 2 2 Right -Lotion applied to leg before No compression wrap -Tubular Bandage Double Layer Double Layer Double Layer -Size of Tubigrip Used Size F Size F Size F -Size F ($) 2 2 2 Pain Scale: 0-10 Numeric Is Patient Pain Free? Yes Yes Yes - Visit Discharge Discharge Condition Stable Stable Stable Ambulatory Status Wheelchair Wheelchair Wheelchair Transportation [facility] Accompanied by nurse Medication Reconcilliation completed & No No provided to patient/care provider Clinical Summary of Care Provided Yes Yes Yes Assessment/Plan Assessment/Plan (1) Non-pressure chronic ulcer of other part of left lower leg with fat layer exposed: CODE(S): L97.822 - Non-pressure chronic ulcer of other part of left lower leg with fat layer exposed PLAN: Patient was examined and evaluated. All findings were discussed with the patient. All questions were answered to the patient's satisfaction. Excisional debridement down to and including subcutaneous tissue of the left lower extremity below-knee amputation full-thickness ulceration with a number 3 mm dermal curette without incident. Predebridement measurement is 0.4 x 0.4 x 0.8 cm. Postdebridement measurement is 0.5 x 0.5 x 1.0 cm. Excisional debridement down to and including subcutaneous tissue, fascia and muscle to the right lateral ankle full-thickness ulceration with a number 3 mm dermal curette without incident. Predebridement measurement was 0.8 x 0.8 x 0.2 cm. Postdebridement measurement is 0.9 x 0.9 x 0.2 cm. EpiFix 18 mm disc was applied to the right full-thickness ulceration with 100% use. Seventh application. The graft site was free and clear of any infection. The wound/skin graft substitute was dressed with nonadherent bandage secured in place with Steri-Strips followed by bolster dressing as well as a double layer Tubigrip. Packing was applied to left lower extremity. By dry sterile dressing. SNF will continue dressing changes as written. The patient will be placed on levofloxacin 500 g daily for the next 2 weeks since the SNF discharged his Bactrim DS with concerns of increased kidney function values. It was educated to the patient and the caregivers if there is any questions to reach out to Dr. Sarah with questions or concerns about the antibiotic. Follow-up at the wound care center with Dr. Sarah in 1 week. (2) Non-pressure chronic ulcer of other part of right lower leg with fat layer exposed: CODE(S): L97.812 - Non-pressure chronic ulcer of other part of right lower leg with fat layer exposed (3) Other specified peripheral vascular diseases: CODE(S): I73.89 - Other specified peripheral vascular diseases
[2024-01-06 09:32] VITALS: BP 154/93; PULSE 84; RESP 16; TEMP 35.4; BMI 44.4
--- NOTE | 2024-01-06 11:11 | PN.PCM_ITS ---
History of Present Illness Date of Service: 01/06/24 Chief Complaint: Bilateral leg wounds. History of Wound: By leg wounds. Subjective Subjective Mr. Olivares is a 78 old diabetic male presenting to clinic today for follow-up evaluation to the lateral right ankle ulceration. He has kept his graft clean dry and intact. He is nonambulatory and moves around in a wheelchair. Patient is improving well. Denies trauma. No constitutional symptoms or no complaints at this time. Objective Data Objective Data Vital Signs: Vital Signs Temp Pulse Resp BP O2 Del Method 95.8 F L 84 16 154/93 H Room Air 01/06/24 09:32 01/06/24 09:32 01/06/24 09:32 01/06/24 09:32 01/06/24 09:32 Oxygen Delivery Method Room Air Weight: 161.479 kg Body Mass Index (BMI) 44.4 Physical Exam Narrative Vascular: DP and PT pulses are faintly palpable to the right lower extremity. DP and PT pulses on Doppler are biphasic. 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 Skin temp great is warm to warm from proximal ankle to distal digits to the righ t lower extremity. Skin temperature gradient is warm to warm to the need to the BKA stump to left lower extremity. Neurological: Light touch intact. Protective sensation is diminished. Dermatological: Evidence of deep tissue injury appreciated to the right hallux with evidence of hematoma, improving. Full-thickness ulceration to the right lateral ankle measuring 1.0 x 1.0 x 0.3 cm. Full-thickness ulceration to the left BKA stump measuring 0.4 x 0.4 x 1.2 cm. Tunneling noted to the BKA stump. Blanchable erythema to the left BKA stump, improving Excisional debridement down to and including subcutaneous tissue of the left lower extremity below-knee amputation full-thickness ulceration with a number 3 mm dermal curette without incident. Predebridement measurement is 0.3 x 0.3 x 1.0 cm. Postdebridement measurement is 0.4 x 0.4 x 1.2 cm. Excisional debridement down to and including subcutaneous tissue, fascia and muscle to the right lateral ankle full-thickness ulceration with a number 3 mm dermal curette without incident. Predebridement measurement was 0.9 x 0.9 x 0.2 cm. Postdebridement measurement is 1.0 x 1.0 x 0.3 cm. EpiCord 2.0 x 3.0 mm was applied to the right full-thickness ulceration with 100% use. 8th application. The graft site was free and clear of any infection. The wound/skin graft substitute was dressed with nonadherent bandage secured in place with Steri-Strips followed by bolster dressing as well as a double layer Tubigrip. Musculoskeletal: Evidence of varus contracture to the right ankle secondary to tight posterior tibial tendon and anterior tibial tendon. Full range of motion of the knee without pain or crepitus. No pain to palpation to bilateral full- thickness ulcerations. No pain with calf compression bilateral. Debridement Note Debridement Note Debridement Free Text: Excisional debridement down to and including subcutaneous tissue of the left lower extremity below-knee amputation full-thickness ulceration with a number 3 mm dermal curette without incident. Predebridement measurement is 0.3 x 0.3 x 1.0 cm. Postdebridement measurement is 0.4 x 0.4 x 1.2 cm. Excisional debridement down to and including subcutaneous tissue, fascia and muscle to the right lateral ankle full-thickness ulceration with a number 3 mm dermal curette without incident. Predebridement measurement was 0.9 x 0.9 x 0.2 cm. Postdebridement measurement is 1.0 x 1.0 x 0.3 cm. EpiCord 2.0 x 3.0 mm was applied to the right full-thickness ulceration with 10 0% use. 8th application. The graft site was free and clear of any infection. The wound/skin graft substitute was dressed with nonadherent bandage secured in place with Steri-Strips followed by bolster dressing as well as a double layer Tubigrip. Post-Debridement Measurements and Additional Note: Post-Debridement Measurements/Treatment WC - Nurse 1 - General Ulcer Assessment Start: 12/16/23 09:16 Freq: Status: Active Protocol: FABIENNE Activity Type Activity Date Activity User E-sign Co-sign Detail Recorded Client Recorded Date Recorded By Document 12/16/23 09:16 KW ; 12/16/23 09:24 KW Document 12/23/23 09:14 KW k 12/23/23 09:16 KW Document 12/30/23 09:17 MA [id number] 12/30/23 09:20 MT Document 01/06/24 09:32 KW d 01/06/24 09:43 KW 12/16/23 12/23/23 12/30/23 09:16 09:14 09:17 WC - Today's Visit Information Type of service Follow-up Visit Follow-up Visit Follow-up Visit (Physician/FIELD CONTACT TECHNICIAN (Physician/FIELD CONTACT TECHNICIAN (Physician/FIELD CONTACT TECHNICIAN ) ) ) Arrival Mode Wheelchair Wheelchair Wheelchair Accompanied by nurse nurse SVITLANA ISRRAEL Patient Identification Verified (Name & Yes Yes Yes ) Safety Precautions Fall Prevention Height and Weight Body Mass Index (BMI) 44.4 44.4 44.4 BMI Classification Obese Obese Obese Vital Signs Temperature (97.8 F-99.1 F) 96.7 F L 96.6 F L Temperature Source Temporal Temporal Temporal Pulse Rate (60-100) 84 76 99 Pulse Location Monitor Monitor Monitor Respiratory Rate (12-18) 18 18 18 Respiratory rate source Observation Observation Observation Oxygen Delivery Method Room Air Room Air Blood Pressure (90/60-120/80) 110/68 125/73 H 152/67 H Blood Pressure Mean (mm Hg) 82 90 95 Source Monitor Monitor Monitor Position Sitting Sitting Sitting Blood Pressure Location Left Forearm Left Arm Left Arm History Since Last Visit- (Skip if this is Patient's initial visit) Have you changed medications since your No No last visit? Any new allergies or adverse reactions No No Had a fall/change in ADL's that may No No increase risk of falls Signs or symptoms of abuse and/or No No neglect since last visit Have you been in the hospital since your No No last visit? Has dressing in place as prescribed Yes Yes Yes Has compression in place as prescribed Yes Yes Yes Has offloadiing in place as prescribed Yes Yes Yes Experienced any changes in pain level or No No Yes management Left Footwear No Footwear No Footwear Regular Shoe Right Footwear No Footwear No Footwear Regular Shoe Pain Scale: 0-10 Numeric Is Patient Pain Free? Yes Yes Yes 01/06/24 09:32 WC - Today's Visit Information Type of service Follow-up Visit (Physician/FIELD CONTACT TECHNICIAN ) Arrival Mode Wheelchair Accompanied by nurse Patient Identification Verified (Name & Yes ) Safety Precautions Height and Weight Body Mass Index (BMI) 44.4 BMI Classification Obese Vital Signs Temperature (97.8 F-99.1 F) 95.8 F L Temperature Source Temporal Pulse Rate (60-100) 84 Pulse Location Monitor Respiratory Rate (12-18) 16 Respiratory rate source Observation Oxygen Delivery Method Room Air Blood Pressure (90/60-120/80) 154/93 H Blood Pressure Mean (mm Hg) 113 Source Monitor Position Sitting Blood Pressure Location Left Forearm History Since Last Visit- (Skip if this is Patient's initial visit) Have you changed medications since your No last visit? Any new allergies or adverse reactions No Had a fall/change in ADL's that may No increase risk of falls Signs or symptoms of abuse and/or No neglect since last visit Have you been in the hospital since your No last visit? Has dressing in place as prescribed Yes Has compression in place as prescribed Yes Has offloadiing in place as prescribed N/A Experienced any changes in pain level or No management Left Footwear No Footwear Right Footwear No Footwear Pain Scale: 0-10 Numeric Is Patient Pain Free? Yes WC - Nurse 1 - General Ulcer Measurement Start: 12/16/23 09:16 Freq: Status: Active Protocol: Activity Type Activity Date Activity User E-sign Co-sign Detail Recorded Client Recorded Date Recorded By Document 12/16/23 09:16 KW ; 12/16/23 09:24 KW Document 12/23/23 09:14 KW k 12/23/23 09:16 KW Document 12/30/23 09:17 MT [id number] 12/30/23 09:20 MT Document 01/06/24 09:32 KW d 01/06/24 09:43 KW 12/16/23 12/23/23 12/30/23 09:16 09:14 09:17 Wound Center Nurse 1 #8 Lt stump -Current Size (cm) - Length 0.8 0.3 0.7 -Current Size (cm) - Width 0.4 0.4 0.9 -Current Size (cm) - Depth 1.2 0.7 0.5 -Total Square Cm 0.32 0.12 0.63 -Date of Last Picture (Recall this 12/23/23 field) -Photo Taken No -Epithelialization None Present -Tunneling No -Undermining/Tunneling No -Circular Undermining No -Exudate Amt Small Medium Medium -Exudate Type Serosanguineous Serosanguineous Serosanguineous -Wound Margin Distinct, Distinct, Thickened & Outline Outline Rolled Under Attached Attached -Granulation Amt Large (67-100%) Medium (34-66%) Large (67-100%) -Granulation Quality Red [place] Pale,[place] -Necrosis Amt Medium (34-66%) Small (1-33%) -Necrotic Tissue Type Adherent Slough Adherent Slough -Texture (Michell-wound Skin Appearance) Assessed Assessed Assessed -Moisture (Michell-wound Skin Appearance) Assessed Assessed Assessed -Color (Michell-wound Skin Appearance) Assessed Assessed, Assessed Erythema -Temperature (Michell-wound Skin No Abnormality No Abnormality No Abnormality Appearance) (Pt Warm) (Pt Warm) (Pt Warm) -Tenderness on Palpation (Michell-wound No No No Skin Appearance) -Ulcer Cleansing Soap and Water Soap and Water Soap and Water -Foul Odor after Cleansing No No No -Anesthetic Used 5% Lidocaine 5% Lidocaine 5% Lidocaine Gel Gel Gel #4 RT LAT ANKLE -Current Size (cm) - Length 1 1 1.5 -Current Size (cm) - Width 0.8 0.7 1.0 -Current Size (cm) - Depth 0.3 0.2 0.3 -Total Square Cm 0.8 0.7 1.50 -Date of Last Picture (Recall this 12/23/23 field) -Photo Taken No -Tunneling No -Undermining/Tunneling No -Circular Undermining No -Exudate Amt Medium Medium -Exudate Type Serosanguineous Serosanguineous -Wound Margin Distinct, Flat & Intact Outline Attached -Granulation Amt Small (1-33%) Medium (34-66%) Large (67-100%) -Granulation Quality [place] Pale,[place] -Necrosis Amt Large (67-100%) Medium (34-66%) Small (1-33%) -Necrotic Tissue Type Adherent Slough Adherent Slough Adherent Slough -Texture (Michell-wound Skin Appearance) Assessed Assessed Assessed -Moisture (Michell-wound Skin Appearance) Assessed Assessed Assessed -Color (Michell-wound Skin Appearance) Assessed Assessed, Assessed Erythema -Temperature (Michell-wound Skin No Abnormality No Abnormality No Abnormality Appearance) (Pt Warm) (Pt Warm) (Pt Warm) -Tenderness on Palpation (Michell-wound No No No Skin Appearance) -Ulcer Cleansing Soap and Water Soap and Water Soap and Water -Foul Odor after Cleansing No No No -Anesthetic Used 5% Lidocaine 5% Lidocaine 5% Lidocaine Gel Gel Gel Right Calf (cm) 45 45 Right Ankle (cm) 26.7 26.7 Left Calf (cm) 01/06/24 09:32 Wound Center Nurse 1 #8 Lt stump -Current Size (cm) - Length 0.6 -Current Size (cm) - Width 0.6 -Current Size (cm) - Depth 1 -Total Square Cm 0.36 -Date of Last Picture (Recall this 01/06/24 field) -Photo Taken -Epithelialization -Tunneling -Undermining/Tunneling -Circular Undermining -Exudate Amt Medium -Exudate Type Serosanguineous -Wound Margin -Granulation Amt Large (67-100%) -Granulation Quality [place] -Necrosis Amt -Necrotic Tissue Type -Texture (Michell-wound Skin Appearance) Assessed -Moisture (Michell-wound Skin Appearance) Assessed -Color (Michell-wound Skin Appearance) Assessed -Temperature (Michell-wound Skin No Abnormality Appearance) (Pt Warm) -Tenderness on Palpation (Michell-wound No Skin Appearance) -Ulcer Cleansing Soap and Water -Foul Odor after Cleansing -Anesthetic Used 5% Lidocaine Gel #4 RT LAT ANKLE -Current Size (cm) - Length 0.8 -Current Size (cm) - Width 1.1 -Current Size (cm) - Depth 0.3 -Total Square Cm 0.88 -Date of Last Picture (Recall this 01/06/24 field) -Photo Taken -Tunneling -Undermining/Tunneling -Circular Undermining -Exudate Amt Medium -Exudate Type Serosanguineous -Wound Margin Distinct, Outline Attached -Granulation Amt Large (67-100%) -Granulation Quality [place] -Necrosis Amt Small (1-33%) -Necrotic Tissue Type Adherent Slough -Texture (Michell-wound Skin Appearance) Assessed, Localized Edema -Moisture (Michell-wound Skin Appearance) Maceration -Color (Michell-wound Skin Appearance) Assessed -Temperature (Michell-wound Skin No Abnormality Appearance) (Pt Warm) -Tenderness on Palpation (Michell-wound No Skin Appearance) -Ulcer Cleansing Soap and Water -Foul Odor after Cleansing No -Anesthetic Used 5% Lidocaine Gel Right Calf (cm) 44.7 Right Ankle (cm) 26 Left Calf (cm) 43 WC - Nurse 2 - General Ulcer CM Notes Start: 12/16/23 09:16 Freq: Status: Active Protocol: Activity Type Activity Date Activity User E-sign Co-sign Detail Recorded Client Recorded Date Recorded By Document 12/16/23 09:30 JF 0000 12/16/23 09:35 JF Document 12/23/23 09:36 JF 000 12/23/23 09:40 JF Document 12/30/23 09:36 GM wc 12/30/23 09:49 GM Edit Result 12/30/23 09:36 GM (1) [id number] 12/30/23 13:06 GM Document 01/06/24 09:50 JF 000 01/06/24 09:58 JF (1) #4 RT LAT ANKLE - Apply Skin Sub - 1st 25 sq cm - Legs => 1 12/16/23 12/23/23 12/30/23 09:30 09:36 09:36 Wound Center Nurse 2 #8 Lt stump -Time 09:30 09:36 09:36 -Correct Patient Yes Yes Yes -Correct Side, Site, Position Yes Yes Yes -Correct Procedure Yes Yes Yes -Procedure Performed Yes Yes Yes -Type of Procedure Debridement Debridement Debridement -Clinical Debridement Subcutaneous Subcutaneous Subcutaneous -Tissue Removed Subcutaneous Subcutaneous Subcutaneous -Post Debridement (cm) - Length 0.7 0.5 0.5 -Post Debridement (cm) - Width 0.6 0.3 0.5 -Post Debridement (cm) - Depth 1.2 0.8 1.0 -Total Square (Post) (cm) 0.42 0.15 0.25 -Area of Debridement (cm) - Length 0.7 0.5 0.5 -Area of Debridement (cm) - Width 0.6 0.3 -Total Square (Area) (cm) 0.42 0.15 -Tunneling No No No -Undermining/Tunneling No No No -Circular Undermining No No No -Wound/Ulcer Outcome Not Healed Not Healed Not Healed -Ulcer Cleansing Rinsed/ Rinsed/ Rinsed/ Irrigated with Irrigated with Irrigated with Saline Saline Saline -Foul Odor after Cleansing No No No -Bioengineered Tissue No No No -Bleeding Controlled with Pressure Pressure Pressure -Treatment Response Procedure Procedure Procedure Tolerated Well Tolerated Well Tolerated Well -Offloading No No -Debridement - Subq, 1st 20sq cm Yes Yes Yes #4 RT LAT ANKLE -Time 09:31 09:37 09:38 -Correct Patient Yes Yes Yes -Correct Side, Site, Position Yes Yes Yes -Correct Procedure Yes Yes Yes -Procedure Performed Yes Yes Yes -Type of Procedure Debridement Debridement Debridement -Clinical Debridement Subcutaneous Subcutaneous Subcutaneous -Tissue Removed Subcutaneous Subcutaneous Subcutaneous -Post Debridement (cm) - Length 0.9 1.0 0.9 -Post Debridement (cm) - Width 0.7 0.9 0.9 -Post Debridement (cm) - Depth 0.2 0.5 0.2 -Total Square (Post) (cm) 0.63 0.90 0.81 -Area of Debridement (cm) - Length 0.9 1.0 0.9 -Area of Debridement (cm) - Width 0.7 0.9 0.9 -Total Square (Area) (cm) 0.63 0.90 0.81 -Tunneling No No No -Undermining/Tunneling No No No -Circular Undermining No No No -Wound/Ulcer Outcome Not Healed Not Healed Not Healed -Ulcer Cleansing Rinsed/ Rinsed/ Rinsed/ Irrigated with Irrigated with Irrigated with Saline Saline Saline -Foul Odor after Cleansing No No No -Bioengineered Tissue Yes Yes Yes -Type of Bioengineered Tissue Epifix 18mm Epifix 18mm Epifix 18mm Disc Disc Disc -Expiration Date 06/15/28 07/16/28 07/16/28 -Product Lot Number [id number] -Percent Used 100 100 100 -Lot number of Saline Used [id number] -Bleeding Controlled with Pressure Pressure Pressure -Treatment Response Procedure Procedure Procedure Tolerated Well Tolerated Well Tolerated Well -Offloading No Yes -Type of Offloading Surgical Shoe -Debridement - Subq, 1st 20sq cm No No No -Debridement - Muscle / Fascia, 1st 20sq cm -Apply Skin Sub - 1st 25 sq cm - Legs 1 1 1 -Epicord (per sq cm) -Epifix 18mm Disc 3 3 3 Pain Scale: 0-10 Numeric Is Patient Pain Free? Yes Yes Yes 01/06/24 09:50 Wound Center Nurse 2 #8 Lt stump -Time 09:51 -Correct Patient Yes -Correct Side, Site, Position Yes -Correct Procedure Yes -Procedure Performed Yes -Type of Procedure Debridement -Clinical Debridement Subcutaneous -Tissue Removed Subcutaneous -Post Debridement (cm) - Length 0.4 -Post Debridement (cm) - Width 0.4 -Post Debridement (cm) - Depth 1.2 -Total Square (Post) (cm) 0.16 -Area of Debridement (cm) - Length 0.4 -Area of Debridement (cm) - Width 0.4 -Total Square (Area) (cm) 0.16 -Tunneling No -Undermining/Tunneling No -Circular Undermining No -Wound/Ulcer Outcome Not Healed -Ulcer Cleansing Rinsed/ Irrigated with Saline -Foul Odor after Cleansing No -Bioengineered Tissue No -Bleeding Controlled with Pressure -Treatment Response Procedure Tolerated Well -Offloading No -Debridement - Subq, 1st 20sq cm Yes #4 RT LAT ANKLE -Time 09:50 -Correct Patient Yes -Correct Side, Site, Position Yes -Correct Procedure Yes -Procedure Performed Yes -Type of Procedure Debridement -Clinical Debridement Muscle / Fascia -Tissue Removed Fascia -Post Debridement (cm) - Length -Post Debridement (cm) - Width -Post Debridement (cm) - Depth -Total Square (Post) (cm) -Area of Debridement (cm) - Length -Area of Debridement (cm) - Width -Total Square (Area) (cm) -Tunneling No -Undermining/Tunneling No -Circular Undermining No -Wound/Ulcer Outcome Not Healed -Ulcer Cleansing Rinsed/ Irrigated with Saline -Foul Odor after Cleansing No -Bioengineered Tissue Yes -Type of Bioengineered Tissue Epicord -Expiration Date 06/15/28 -Product Lot Number [id number] -Percent Used 100 -Lot number of Saline Used [id number] -Bleeding Controlled with Pressure -Treatment Response Procedure Tolerated Well -Offloading No -Type of Offloading -Debridement - Subq, 1st 20sq cm -Debridement - Muscle / Fascia, 1st No 20sq cm -Apply Skin Sub - 1st 25 sq cm - Legs 1 -Epicord (per sq cm) 6 -Epifix 18mm Disc Pain Scale: 0-10 Numeric Is Patient Pain Free? Yes JOANA - Nurse 3 - General Ulcer D/C NN Start: 12/16/23 09:16 Freq: Status: Active Protocol: Activity Type Activity Date Activity User E-sign Co-sign Detail Recorded Client Recorded Date Recorded By Document 12/16/23 09:41 GM wc 12/16/23 09:43 GM Document 12/23/23 09:45 KW k 12/23/23 09:45 KW Document 12/30/23 10:01 KW ; 12/30/23 10:02 KW Document 01/06/24 10:13 KW d 01/06/24 10:14 KW 12/16/23 12/23/23 12/30/23 09:41 09:45 10:01 Wound Care Center Nurse 3 #8 Lt stump -Ulcer Cleansing Not Cleansed -Foul Odor after Cleansing No -Primary Dressing Applied Mepilex Border, Mepilex Border, Nugauze, Nugauze, Iodoform 1/4in Iodoform 1/4in -Other Dressing pack with pt iodoform -Primary Dressing Covered/Secured with Dry Gauze & Roll Gauze, Secured with Tape -Mepilex Border 1 1 -Nugauze, Iodoform 1/4in 1 1 #4 RT LAT ANKLE -Ulcer Cleansing Not Cleansed -Primary Dressing Applied Mepilex Border Mepilex Border -Primary Dressing Covered/Secured with Dry Gauze & Roll Gauze, Secured with Tape -Mepilex Border 1 1 Left -Lotion applied to leg before No compression wrap -Tubular Bandage Double Layer Double Layer Double Layer -Size of Tubigrip Used Size F Size F Size F -Size F ($) 2 2 2 Right -Lotion applied to leg before No compression wrap -Tubular Bandage Double Layer Double Layer Double Layer -Size of Tubigrip Used Size F Size F Size F -Size F ($) 2 2 2 Pain Scale: 0-10 Numeric Is Patient Pain Free? Yes Yes Yes - Visit Discharge Discharge Condition Stable Stable Stable Ambulatory Status Wheelchair Wheelchair Wheelchair Transportation [facility] Accompanied by nurse Medication Reconcilliation completed & No No provided to patient/care provider Clinical Summary of Care Provided Yes Yes Yes 01/06/24 10:13 Wound Care Center Nurse 3 #8 Lt stump -Ulcer Cleansing -Foul Odor after Cleansing -Primary Dressing Applied Mepilex Border, Nugauze, Iodoform 1/4in -Other Dressing -Primary Dressing Covered/Secured with Dry Gauze -Mepilex Border 1 -Nugauze, Iodoform 1/4in 1 #4 RT LAT ANKLE -Ulcer Cleansing -Primary Dressing Applied Mepilex Border -Primary Dressing Covered/Secured with -Mepilex Border 1 Left -Lotion applied to leg before compression wrap -Tubular Bandage Double Layer -Size of Tubigrip Used Size F -Size F ($) 2 Right -Lotion applied to leg before compression wrap -Tubular Bandage Double Layer -Size of Tubigrip Used Size F -Size F ($) 2 Pain Scale: 0-10 Numeric Is Patient Pain Free? Yes WC - Visit Discharge Discharge Condition Ambulatory Status Transportation Accompanied by Medication Reconcilliation completed & provided to patient/care provider Clinical Summary of Care Provided Assessment/Plan Assessment/Plan (1) Non-pressure chronic ulcer of right ankle with necrosis of muscle: CODE(S): L97.313 - Non-pressure chronic ulcer of right ankle with necrosis of muscle PLAN: Patient was examined and evaluated. All findings were discussed with the patient. All questions were answered to the patient's satisfaction. Excisional debridement down to and including subcutaneous tissue of the left lower extremity below-knee amputation full-thickness ulceration with a number 3 mm dermal curette without incident. Predebridement measurement is 0.3 x 0.3 x 1.0 cm. Postdebridement measurement is 0.4 x 0.4 x 1.2 cm. Excisional debridement down to and including subcutaneous tissue, fascia and muscle to the right lateral ankle full-thickness ulceration with a number 3 mm dermal curette without incident. Predebridement measurement was 0.9 x 0.9 x 0.2 cm. Postdebridement measurement is 1.0 x 1.0 x 0.3 cm. EpiCord 2.0 x 3.0 mm was applied to the right full-thickness ulceration with 100% use. 8th application. The graft site was free and clear of any infection. The wound/skin graft substitute was dressed with nonadherent bandage secured in place with Steri-Strips followed by bolster dressing as well as a double layer Tubigrip. Right BKA stump was packed with iodoform form. Followed by dry sterile dressing and Tubigrip. Patient will continue dressing changes at the snf to the right lower extremity. It was educated the patient to continue his antibiotics as written and we will culture the left leg on 01/12 and if the patient shows no growth of bacteria we will perform delayed primary closure to left lower extremity. Follow-up at the wound care center with Dr. Sarah in 1 week. (2) Non-pressure chronic ulcer of other part of left lower leg with fat layer exposed: CODE(S): L97.822 - Non-pressure chronic ulcer of other part of left lower leg with fat layer exposed (3) Other specified peripheral vascular diseases: CODE(S): I73.89 - Other specified peripheral vascular diseases (4) Chronic painful diabetic polyneuropathy: CODE(S): E11.42 - Type 2 diabetes mellitus with diabetic polyneuropathy
[2024-01-13 09:16] VITALS: RESP 18; TEMP 36.2; BMI 44.4
--- NOTE | 2024-01-13 11:14 | WC ---
PHOTO LEFT STUMP 01/06/24
--- NOTE | 2024-01-13 11:15 | WC ---
PHOTO 01/06/24 RIGHT LATERAL ANKLE
--- NOTE | 2024-01-13 11:33 | PN.PCM_ITS ---
History of Present Illness Date of Service: 01/13/24 Chief Complaint: Bilateral leg wounds. History of Wound: By leg wounds. Subjective Subjective Mr. Olivares is a 78 old diabetic male presenting to clinic today for follow-up evaluation to the lateral right ankle ulceration. He has kept his graft clean dry and intact. He is nonambulatory and moves around in a wheelchair. Patient is improving well. Denies trauma. No constitutional symptoms or no complaints at this time. Objective Data Objective Data Vital Signs: Vital Signs Temp Pulse Resp BP O2 Del Method 97.1 F L 84 18 154/93 H Room Air 01/13/24 09:16 01/06/24 09:32 01/13/24 09:16 01/06/24 09:32 01/13/24 09:16 Oxygen Delivery Method Room Air Weight: 161.479 kg Body Mass Index (BMI) 44.4 Physical Exam Narrative Vascular: DP and PT pulses are faintly palpable to the right lower extremity. DP and PT pulses on Doppler are biphasic. 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 Skin temperature gradient is warm to warm from proximal ankle to distal stump to left lower extremity with mild focal increase. Neurological: Light touch intact. Protective sensation is diminished. Dermatological: Evidence of 2 full-thickness ulceration to the lateral aspect of the right foot. Right ankle measures 1.0 x 0.9 x 0.3 cm. The right foot ulceration measures 0.5 x 0.5 x 0.1 cm. 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 Excisional debridement down to and including subcutaneous tissue of the left lower extremity below-knee amputation full-thickness ulceration with a number 3 mm dermal curette without incident. Predebridement measurement is 0.2 x 0.2 x 1.2 cm. Postdebridement measurement is 0.3 x 0.3 x 1.8 cm. Excisional debridement down to and including subcutaneous tissue of the right foot ulceration with a number 3 mm dermal curette without incident. Predebridement measurement was sanguinous crust. Postdebridement measurement is 0.5 x 0.5 x 0.1 cm. Excisional debridement down to and including subcutaneous tissue, fascia and muscle to the right lateral ankle full-thickness ulceration with a number 3 mm dermal curette without incident. Predebridement measurement was 0.9 x 0.8 x 0.2 cm. Postdebridement measurement is 1.0 x 0.9 x 0.3 cm. EpiCord 2.0 x 3.0 mm was applied to the right full-thickness ulceration with 100% use. 9th application. The graft site was free and clear of any infection. The wound/skin graft substitute was dressed with nonadherent bandage secured in place with Steri-Strips followed by bolster dressing as well as a double layer Tubigrip. Musculoskeletal: Evidence of varus contracture to the right ankle secondary to tight posterior tibial tendon and anterior tibial tendon. Full range of motion of the knee without pain or crepitus. No pain to palpation to bilateral full- thickness ulcerations. No pain with calf compression bilateral. Debridement Note Debridement Note Debridement Free Text: Excisional debridement down to and including subcutaneous tissue of the left lower extremity below-knee amputation full-thickness ulceration with a number 3 mm dermal curette without incident. Predebridement measurement is 0.2 x 0.2 x 1.2 cm. Postdebridement measurement is 0.3 x 0.3 x 1.8 cm. Excisional debridement down to and including subcutaneous tissue of the right f oot ulceration with a number 3 mm dermal curette without incident. Predebridement measurement was sanguinous crust. Postdebridement measurement is 0.5 x 0.5 x 0.1 cm. Excisional debridement down to and including subcutaneous tissue, fascia and muscle to the right lateral ankle full-thickness ulceration with a number 3 mm dermal curette without incident. Predebridement measurement was 0.9 x 0.8 x 0.2 cm. Postdebridement measurement is 1.0 x 0.9 x 0.3 cm. EpiCord 2.0 x 3.0 mm was applied to the right full-thickness ulceration with 100% use. 9th application. The graft site was free and clear of any infection. The wound/skin graft substitute was dressed with nonadherent bandage secured in place with Steri-Strips followed by bolster dressing as well as a double layer Tubigrip. Post-Debridement Measurements and Additional Note: Post-Debridement Measurements/Treatment WC - Nurse 1 - General Ulcer Assessment Start: 12/16/23 09:16 Freq: Status: Active Protocol: [email or web address] Activity Type Activity Date Activity User E-sign Co-sign Detail Recorded Client Recorded Date Recorded By Document 12/16/23 09:16 KW ; 12/16/23 09:24 KW Document 12/23/23 09:14 KW k 12/23/23 09:16 KW Document 12/30/23 09:17 MT [id number] 12/30/23 09:20 MT Document 01/06/24 09:32 KW d 01/06/24 09:43 KW Document 01/13/24 09:16 KW [id number] 01/13/24 09:30 KW 12/16/23 12/23/23 12/30/23 09:16 09:14 09:17 WC - Today's Visit Information Type of service Follow-up Visit Follow-up Visit Follow-up Visit (Physician/THERAPEUTIC RECREATION ASSISTANT (Physician/THERAPEUTIC RECREATION ASSISTANT (Physician/THERAPEUTIC RECREATION ASSISTANT ) ) ) Arrival Mode Wheelchair Wheelchair Wheelchair Accompanied by nurse nurse [employer] [place] Patient Identification Verified (Name & Yes Yes Yes ) Safety Precautions Fall Prevention Height and Weight Body Mass Index (BMI) 44.4 44.4 44.4 BMI Classification Obese Obese Obese Vital Signs Temperature (97.8 F-99.1 F) 96.7 F L 96.6 F L Temperature Source Temporal Temporal Temporal Pulse Rate (60-100) 84 76 99 Pulse Location Monitor Monitor Monitor Respiratory Rate (12-18) 18 18 18 Respiratory rate source Observation Observation Observation Oxygen Delivery Method Room Air Room Air Blood Pressure (90/60-120/80) 110/68 125/73 H 152/67 H Blood Pressure Mean (mm Hg) 82 90 95 Source Monitor Monitor Monitor Position Sitting Sitting Sitting Blood Pressure Location Left Forearm Left Arm Left Arm History Since Last Visit- (Skip if this is Patient's initial visit) Have you changed medications since your No No last visit? Any new allergies or adverse reactions No No Had a fall/change in ADL's that may No No increase risk of falls Signs or symptoms of abuse and/or No No neglect since last visit Have you been in the hospital since your No No last visit? Has dressing in place as prescribed Yes Yes Yes Has compression in place as prescribed Yes Yes Yes Has offloadiing in place as prescribed Yes Yes Yes Experienced any changes in pain level or No No Yes management Left Footwear No Footwear No Footwear Regular Shoe Right Footwear No Footwear No Footwear Regular Shoe Pain Scale: 0-10 Numeric Is Patient Pain Free? Yes Yes Yes 01/06/24 01/13/24 09:32 09:16 - Today's Visit Information Type of service Follow-up Visit Follow-up Visit (Physician/THERAPEUTIC RECREATION ASSISTANT (Physician/THERAPEUTIC RECREATION ASSISTANT ) ) Arrival Mode Wheelchair Wheelchair Accompanied by nurse nurse Patient Identification Verified (Name & Yes Yes ) Safety Precautions Height and Weight Body Mass Index (BMI) 44.4 44.4 BMI Classification Obese Obese Vital Signs Temperature (97.8 F-99.1 F) 95.8 F L 97.1 F L Temperature Source Temporal Temporal Pulse Rate (60-100) 84 Pulse Location Monitor Monitor Respiratory Rate (12-18) 16 18 Respiratory rate source Observation Observation Oxygen Delivery Method Room Air Room Air Blood Pressure (90/60-120/80) 154/93 H Blood Pressure Mean (mm Hg) 113 Source Monitor Monitor Position Sitting Sitting Blood Pressure Location Left Forearm Left Forearm History Since Last Visit- (Skip if this is Patient's initial visit) Have you changed medications since your No No last visit? Any new allergies or adverse reactions No No Had a fall/change in ADL's that may No No increase risk of falls Signs or symptoms of abuse and/or No No neglect since last visit Have you been in the hospital since your No No last visit? Has dressing in place as prescribed Yes Yes Has compression in place as prescribed Yes Yes Has offloadiing in place as prescribed N/A Yes Experienced any changes in pain level or No No management Left Footwear No Footwear No Footwear Right Footwear No Footwear No Footwear Pain Scale: 0-10 Numeric Is Patient Pain Free? Yes Yes - Nurse 1 - General Ulcer Measurement Start: 12/16/23 09:16 Freq: Status: Active Protocol: Activity Type Activity Date Activity User E-sign Co-sign Detail Recorded Client Recorded Date Recorded By Document 12/16/23 09:16 KW ; 12/16/23 09:24 KW Document 12/23/23 09:14 KW k 12/23/23 09:16 KW Document 12/30/23 09:17 MT [id number] 12/30/23 09:20 MT Document 01/06/24 09:32 KW d 01/06/24 09:43 KW Document 01/13/24 09:16 KW [id number] 01/13/24 09:30 KW 12/16/23 12/23/23 12/30/23 09:16 09:14 09:17 Wound Center Nurse 1 #9 RT LAT FT -Current Size (cm) - Length -Current Size (cm) - Width -Current Size (cm) - Depth -Total Square Cm -Date of Last Picture (Recall this field) -Exudate Amt -Exudate Type -Wound Margin -Granulation Amt -Granulation Quality -Texture (Michell-wound Skin Appearance) -Moisture (Michell-wound Skin Appearance) -Color (Michell-wound Skin Appearance) -Temperature (Michell-wound Skin Appearance) -Tenderness on Palpation (Michell-wound Skin Appearance) -Ulcer Cleansing -Foul Odor after Cleansing -Anesthetic Used #8 Lt stump -Current Size (cm) - Length 0.8 0.3 0.7 -Current Size (cm) - Width 0.4 0.4 0.9 -Current Size (cm) - Depth 1.2 0.7 0.5 -Total Square Cm 0.32 0.12 0.63 -Date of Last Picture (Recall this 12/23/23 field) -Photo Taken No -Epithelialization None Present -Tunneling No -Undermining/Tunneling No -Circular Undermining No -Exudate Amt Small Medium Medium -Exudate Type Serosanguineous Serosanguineous Serosanguineous -Wound Margin Distinct, Distinct, Thickened & Outline Outline Rolled Under Attached Attached -Granulation Amt Large (67-100%) Medium (34-66%) Large (67-100%) -Granulation Quality Red [place] Pale,[place] -Necrosis Amt Medium (34-66%) Small (1-33%) -Necrotic Tissue Type Adherent Slough Adherent Slough -Texture (Michell-wound Skin Appearance) Assessed Assessed Assessed -Moisture (Michell-wound Skin Appearance) Assessed Assessed Assessed -Color (Michell-wound Skin Appearance) Assessed Assessed, Assessed Erythema -Temperature (Michell-wound Skin No Abnormality No Abnormality No Abnormality Appearance) (Pt Warm) (Pt Warm) (Pt Warm) -Tenderness on Palpation (Michell-wound No No No Skin Appearance) -Ulcer Cleansing Soap and Water Soap and Water Soap and Water -Foul Odor after Cleansing No No No -Anesthetic Used 5% Lidocaine 5% Lidocaine 5% Lidocaine Gel Gel Gel #4 RT LAT ANKLE -Current Size (cm) - Length 1 1 1.5 -Current Size (cm) - Width 0.8 0.7 1.0 -Current Size (cm) - Depth 0.3 0.2 0.3 -Total Square Cm 0.8 0.7 1.50 -Date of Last Picture (Recall this 12/23/23 field) -Photo Taken No -Tunneling No -Undermining/Tunneling No -Circular Undermining No -Exudate Amt Medium Medium -Exudate Type Serosanguineous Serosanguineous -Wound Margin Distinct, Flat & Intact Outline Attached -Granulation Amt Small (1-33%) Medium (34-66%) Large (67-100%) -Granulation Quality [place] Pale,[place] -Necrosis Amt Large (67-100%) Medium (34-66%) Small (1-33%) -Necrotic Tissue Type Adherent Slough Adherent Slough Adherent Slough -Texture (Michell-wound Skin Appearance) Assessed Assessed Assessed -Moisture (Michell-wound Skin Appearance) Assessed Assessed Assessed -Color (Michell-wound Skin Appearance) Assessed Assessed, Assessed Erythema -Temperature (Michell-wound Skin No Abnormality No Abnormality No Abnormality Appearance) (Pt Warm) (Pt Warm) (Pt Warm) -Tenderness on Palpation (Michell-wound No No No Skin Appearance) -Ulcer Cleansing Soap and Water Soap and Water Soap and Water -Foul Odor after Cleansing No No No -Anesthetic Used 5% Lidocaine 5% Lidocaine 5% Lidocaine Gel Gel Gel Right Calf (cm) 45 45 Right Ankle (cm) 26.7 26.7 Left Calf (cm) Point of measurement (cm from the medial instep) 01/06/24 01/13/24 09:32 09:16 Wound Center Nurse 1 #9 RT LAT FT -Current Size (cm) - Length 0.4 -Current Size (cm) - Width 0.5 -Current Size (cm) - Depth 0.1 -Total Square Cm 0.20 -Date of Last Picture (Recall this 01/13/24 field) -Exudate Amt Small -Exudate Type Serosanguineous -Wound Margin Distinct, Outline Attached -Granulation Amt Large (67-100%) -Granulation Quality Red -Texture (Michell-wound Skin Appearance) Assessed -Moisture (Michell-wound Skin Appearance) Assessed -Color (Michell-wound Skin Appearance) Assessed -Temperature (Michell-wound Skin No Abnormality Appearance) (Pt Warm) -Tenderness on Palpation (Michell-wound No Skin Appearance) -Ulcer Cleansing Soap and Water -Foul Odor after Cleansing No -Anesthetic Used 5% Lidocaine Gel #8 Lt stump -Current Size (cm) - Length 0.6 0.1 -Current Size (cm) - Width 0.6 0.1 -Current Size (cm) - Depth 1 0.1 -Total Square Cm 0.36 0.01 -Date of Last Picture (Recall this 01/06/24 01/13/24 field) -Photo Taken -Epithelialization -Tunneling -Undermining/Tunneling -Circular Undermining -Exudate Amt Medium Small -Exudate Type Serosanguineous Serosanguineous -Wound Margin Distinct, Outline Attached -Granulation Amt Large (67-100%) Large (67-100%) -Granulation Quality [place] -Necrosis Amt Small (1-33%) -Necrotic Tissue Type Adherent Slough -Texture (Michell-wound Skin Appearance) Assessed Assessed -Moisture (Michell-wound Skin Appearance) Assessed Assessed,Dry/ Scaly -Color (Michell-wound Skin Appearance) Assessed Assessed -Temperature (Michell-wound Skin No Abnormality No Abnormality Appearance) (Pt Warm) (Pt Warm) -Tenderness on Palpation (Michell-wound No No Skin Appearance) -Ulcer Cleansing Soap and Water Soap and Water -Foul Odor after Cleansing No -Anesthetic Used 5% Lidocaine 5% Lidocaine Gel Gel #4 RT LAT ANKLE -Current Size (cm) - Length 0.8 0.9 -Current Size (cm) - Width 1.1 1 -Current Size (cm) - Depth 0.3 0.5 -Total Square Cm 0.88 0.9 -Date of Last Picture (Recall this 01/06/24 01/13/24 field) -Photo Taken -Tunneling -Undermining/Tunneling -Circular Undermining -Exudate Amt Medium Medium -Exudate Type Serosanguineous Serosanguineous -Wound Margin Distinct, Distinct, Outline Outline Attached Attached -Granulation Amt Large (67-100%) Large (67-100%) -Granulation Quality [place] Pale,[place] -Necrosis Amt Small (1-33%) Small (1-33%) -Necrotic Tissue Type Adherent Slough Adherent Slough -Texture (Michell-wound Skin Appearance) Assessed, Assessed, Localized Edema Localized Edema -Moisture (Michell-wound Skin Appearance) Maceration Maceration -Color (Michell-wound Skin Appearance) Assessed Assessed -Temperature (Michell-wound Skin No Abnormality No Abnormality Appearance) (Pt Warm) (Pt Warm) -Tenderness on Palpation (Michell-wound No No Skin Appearance) -Ulcer Cleansing Soap and Water Soap and Water -Foul Odor after Cleansing No No -Anesthetic Used 5% Lidocaine 5% Lidocaine Gel Gel Right Calf (cm) 44.7 47.5 Right Ankle (cm) 26 26.5 Left Calf (cm) 43 Point of measurement (cm from the medial 42 instep) WC - Nurse 2 - General Ulcer CM Notes Start: 12/16/23 09:16 Freq: Status: Active Protocol: Activity Type Activity Date Activity User E-sign Co-sign Detail Recorded Client Recorded Date Recorded By Document 12/16/23 09:30 0000 12/16/23 09:35 Document 12/23/23 09:36 JF 000 12/23/23 09:40 Document 12/30/23 09:36 [facility] 12/30/23 09:49 GM Edit Result 12/30/23 09:36 GM (1) [id number] 12/30/23 13:06 Document 01/06/24 09:50 JF 000 01/06/24 09:58 Document 01/13/24 09:31 JF 0000 01/13/24 09:41 JF (1) #4 RT LAT ANKLE - Apply Skin Sub - 1st 25 sq cm - Legs => 1 12/16/23 12/23/23 12/30/23 09:30 09:36 09:36 Wound Center Nurse 2 #9 RT LAT FT -Time -Correct Patient -Correct Side, Site, Position -Correct Procedure -Procedure Performed -Type of Procedure -Clinical Debridement -Tissue Removed -Post Debridement (cm) - Length -Post Debridement (cm) - Width -Post Debridement (cm) - Depth -Total Square (Post) (cm) -Area of Debridement (cm) - Length -Area of Debridement (cm) - Width -Total Square (Area) (cm) -Tunneling -Undermining/Tunneling -Circular Undermining -Wound/Ulcer Outcome -Bleeding Controlled with -Treatment Response -Offloading -Debridement - Subq, 1st 20sq cm #8 Lt stump -Time 09:30 09:36 09:36 -Correct Patient Yes Yes Yes -Correct Side, Site, Position Yes Yes Yes -Correct Procedure Yes Yes Yes -Procedure Performed Yes Yes Yes -Type of Procedure Debridement Debridement Debridement -Clinical Debridement Subcutaneous Subcutaneous Subcutaneous -Tissue Removed Subcutaneous Subcutaneous Subcutaneous -Post Debridement (cm) - Length 0.7 0.5 0.5 -Post Debridement (cm) - Width 0.6 0.3 0.5 -Post Debridement (cm) - Depth 1.2 0.8 1.0 -Total Square (Post) (cm) 0.42 0.15 0.25 -Area of Debridement (cm) - Length 0.7 0.5 0.5 -Area of Debridement (cm) - Width 0.6 0.3 -Total Square (Area) (cm) 0.42 0.15 -Tunneling No No No -Undermining/Tunneling No No No -Circular Undermining No No No -Wound/Ulcer Outcome Not Healed Not Healed Not Healed -Ulcer Cleansing Rinsed/ Rinsed/ Rinsed/ Irrigated with Irrigated with Irrigated with Saline Saline Saline -Foul Odor after Cleansing No No No -Bioengineered Tissue No No No -Bleeding Controlled with Pressure Pressure Pressure -Treatment Response Procedure Procedure Procedure Tolerated Well Tolerated Well Tolerated Well -Offloading No No -Debridement - Subq, 1st 20sq cm Yes Yes Yes #4 RT LAT ANKLE -Time 09:31 09:37 09:38 -Correct Patient Yes Yes Yes -Correct Side, Site, Position Yes Yes Yes -Correct Procedure Yes Yes Yes -Procedure Performed Yes Yes Yes -Type of Procedure Debridement Debridement Debridement -Clinical Debridement Subcutaneous Subcutaneous Subcutaneous -Tissue Removed Subcutaneous Subcutaneous Subcutaneous -Post Debridement (cm) - Length 0.9 1.0 0.9 -Post Debridement (cm) - Width 0.7 0.9 0.9 -Post Debridement (cm) - Depth 0.2 0.5 0.2 -Total Square (Post) (cm) 0.63 0.90 0.81 -Area of Debridement (cm) - Length 0.9 1.0 0.9 -Area of Debridement (cm) - Width 0.7 0.9 0.9 -Total Square (Area) (cm) 0.63 0.90 0.81 -Tunneling No No No -Undermining/Tunneling No No No -Circular Undermining No No No -Wound/Ulcer Outcome Not Healed Not Healed Not Healed -Ulcer Cleansing Rinsed/ Rinsed/ Rinsed/ Irrigated with Irrigated with Irrigated with Saline Saline Saline -Foul Odor after Cleansing No No No -Bioengineered Tissue Yes Yes Yes -Type of Bioengineered Tissue Epifix 18mm Epifix 18mm Epifix 18mm Disc Disc Disc -Expiration Date 06/15/28 07/16/28 07/16/28 -Product Lot Number [id number] -Percent Used 100 100 100 -Lot number of Saline Used [id number] -Bleeding Controlled with Pressure Pressure Pressure -Treatment Response Procedure Procedure Procedure Tolerated Well Tolerated Well Tolerated Well -Offloading No Yes -Type of Offloading Surgical Shoe -Debridement - Subq, 1st 20sq cm No No No -Debridement - Muscle / Fascia, 1st 20sq cm -Apply Skin Sub - 1st 25 sq cm - Legs 1 1 1 -Epicord (per sq cm) -Epifix 18mm Disc 3 3 3 Pain Scale: 0-10 Numeric Is Patient Pain Free? Yes Yes Yes 01/06/24 07 09:50 09:31 Wound Center Nurse 2 #9 RT LAT FT -Time 09:31 -Correct Patient Yes -Correct Side, Site, Position Yes -Correct Procedure Yes -Procedure Performed Yes -Type of Procedure Debridement -Clinical Debridement Subcutaneous -Tissue Removed Subcutaneous -Post Debridement (cm) - Length 0.5 -Post Debridement (cm) - Width 0.5 -Post Debridement (cm) - Depth 0.1 -Total Square (Post) (cm) 0.25 -Area of Debridement (cm) - Length 0.5 -Area of Debridement (cm) - Width 0.5 -Total Square (Area) (cm) 0.25 -Tunneling No -Undermining/Tunneling No -Circular Undermining No -Wound/Ulcer Outcome Not Healed -Bleeding Controlled with Pressure -Treatment Response Procedure Tolerated Well -Offloading No -Debridement - Subq, 1st 20sq cm Yes #8 Lt stump -Time 09:51 09:34 -Correct Patient Yes Yes -Correct Side, Site, Position Yes Yes -Correct Procedure Yes Yes -Procedure Performed Yes Yes -Type of Procedure Debridement Debridement -Clinical Debridement Subcutaneous Subcutaneous -Tissue Removed Subcutaneous Subcutaneous -Post Debridement (cm) - Length 0.4 0.3 -Post Debridement (cm) - Width 0.4 0.3 -Post Debridement (cm) - Depth 1.2 1.8 -Total Square (Post) (cm) 0.16 0.09 -Area of Debridement (cm) - Length 0.4 0.3 -Area of Debridement (cm) - Width 0.4 0.3 -Total Square (Area) (cm) 0.16 0.09 -Tunneling No No -Undermining/Tunneling No No -Circular Undermining No No -Wound/Ulcer Outcome Not Healed Not Healed -Ulcer Cleansing Rinsed/ Rinsed/ Irrigated with Irrigated with Saline Saline -Foul Odor after Cleansing No No -Bioengineered Tissue No No -Bleeding Controlled with Pressure Pressure -Treatment Response Procedure Procedure Tolerated Well Tolerated Well -Offloading No No -Debridement - Subq, 1st 20sq cm Yes No #4 RT LAT ANKLE -Time 09:50 09:35 -Correct Patient Yes Yes -Correct Side, Site, Position Yes Yes -Correct Procedure Yes Yes -Procedure Performed Yes Yes -Type of Procedure Debridement Debridement -Clinical Debridement Muscle / Fascia Muscle / Fascia -Tissue Removed Fascia Muscle,Fascia -Post Debridement (cm) - Length 1.0 -Post Debridement (cm) - Width 0.9 -Post Debridement (cm) - Depth 0.3 -Total Square (Post) (cm) 0.90 -Area of Debridement (cm) - Length 1.0 -Area of Debridement (cm) - Width 0.9 -Total Square (Area) (cm) 0.90 -Tunneling No No -Undermining/Tunneling No No -Circular Undermining No No -Wound/Ulcer Outcome Not Healed Not Healed -Ulcer Cleansing Rinsed/ Rinsed/ Irrigated with Irrigated with Saline Saline -Foul Odor after Cleansing No No -Bioengineered Tissue Yes Yes -Type of Bioengineered Tissue Epicord Epicord -Expiration Date 06/15/28 04/15/28 -Product Lot Number [id number] -Percent Used 100 100 -Lot number of Saline Used [id number] -Bleeding Controlled with Pressure Pressure -Treatment Response Procedure Procedure Tolerated Well Tolerated Well -Offloading No Yes -Type of Offloading Total Contact Cast (TCC) - Right ($) -Debridement - Subq, 1st 20sq cm -Debridement - Muscle / Fascia, 1st No No 20sq cm -Apply Skin Sub - 1st 25 sq cm - Legs 1 1 -Epicord (per sq cm) 6 6 -Epifix 18mm Disc Pain Scale: 0-10 Numeric Is Patient Pain Free? Yes Yes - Nurse 3 - General Ulcer D/C NN Start: 12/16/23 09:16 Freq: Status: Active Protocol: Activity Type Activity Date Activity User E-sign Co-sign Detail Recorded Client Recorded Date Recorded By Document 12/16/23 09:41 GM wc 12/16/23 09:43 GM Document 12/23/23 09:45 KW k 12/23/23 09:45 KW Document 12/30/23 10:01 KW ; 12/30/23 10:02 KW Document 01/06/24 10:13 KW d 01/06/24 10:14 KW 12/16/23 12/23/23 12/30/23 09:41 09:45 10:01 Wound Care Center Nurse 3 #8 Lt stump -Ulcer Cleansing Not Cleansed -Foul Odor after Cleansing No -Primary Dressing Applied Mepilex Border, Mepilex Border, Nugauze, Nugauze, Iodoform 1/4in Iodoform 1/4in -Other Dressing pack with pt iodoform -Primary Dressing Covered/Secured with Dry Gauze & Roll Gauze, Secured with Tape -Mepilex Border 1 1 -Nugauze, Iodoform 1/4in 1 1 #4 RT LAT ANKLE -Ulcer Cleansing Not Cleansed -Primary Dressing Applied Mepilex Border Mepilex Border -Primary Dressing Covered/Secured with Dry Gauze & Roll Gauze, Secured with Tape -Mepilex Border 1 1 Left -Lotion applied to leg before No compression wrap -Tubular Bandage Double Layer Double Layer Double Layer -Size of Tubigrip Used Size F Size F Size F -Size F ($) 2 2 2 Right -Lotion applied to leg before No compression wrap -Tubular Bandage Double Layer Double Layer Double Layer -Size of Tubigrip Used Size F Size F Size F -Size F ($) 2 2 2 Pain Scale: 0-10 Numeric Is Patient Pain Free? Yes Yes Yes - Visit Discharge Discharge Condition Stable Stable Stable Ambulatory Status Wheelchair Wheelchair Wheelchair Transportation [facility] Accompanied by nurse Medication Reconcilliation completed & No No provided to patient/care provider Clinical Summary of Care Provided Yes Yes Yes 01/06/24 10:13 Wound Care Center Nurse 3 #8 Lt stump -Ulcer Cleansing -Foul Odor after Cleansing -Primary Dressing Applied Mepilex Border, Nugauze, Iodoform 1/4in -Other Dressing -Primary Dressing Covered/Secured with Dry Gauze -Mepilex Border 1 -Nugauze, Iodoform 1/4in 1 #4 RT LAT ANKLE -Ulcer Cleansing -Primary Dressing Applied Mepilex Border -Primary Dressing Covered/Secured with -Mepilex Border 1 Left -Lotion applied to leg before compression wrap -Tubular Bandage Double Layer -Size of Tubigrip Used Size F -Size F ($) 2 Right -Lotion applied to leg before compression wrap -Tubular Bandage Double Layer -Size of Tubigrip Used Size F -Size F ($) 2 Pain Scale: 0-10 Numeric Is Patient Pain Free? Yes WC - Visit Discharge Discharge Condition Ambulatory Status Transportation Accompanied by Medication Reconcilliation completed & provided to patient/care provider Clinical Summary of Care Provided Assessment/Plan Assessment/Plan (1) Non-pressure chronic ulcer of right ankle with necrosis of muscle: CODE(S): L97.313 - Non-pressure chronic ulcer of right ankle with necrosis of muscle PLAN: Patient was examined and evaluated. All findings were discussed with the patient. All questions were answered to the patient's satisfaction. Excisional debridement down to and including subcutaneous tissue of the left lower extremity below-knee amputation full-thickness ulceration with a number 3 mm dermal curette without incident. Predebridement measurement is 0.2 x 0.2 x 1.2 cm. Postdebridement measurement is 0.3 x 0.3 x 1.8 cm. Excisional debridement down to and including subcutaneous tissue of the right foot ulceration with a number 3 mm dermal curette without incident. Predebridement measurement was sanguinous crust. Postdebridement measurement is 0.5 x 0.5 x 0.1 cm. Excisional debridement down to and including subcutaneous tissue, fascia and muscle to the right lateral ankle full-thickness ulceration with a number 3 mm dermal curette without incident. Predebridement measurement was 0.9 x 0.8 x 0.2 cm. Postdebridement measurement is 1.0 x 0.9 x 0.3 cm. EpiCord 2.0 x 3.0 mm was applied to the right full-thickness ulceration with 100% use. 9th application. The graft site was free and clear of any infection. The wound/skin graft substitute was dressed with nonadherent bandage secured in place with Steri-Strips followed by bolster dressing as well as a double layer Tubigrip. The patient's right lower extremity was wiped clean and patted dry and amniotic skin graft substitute was applied. The patient was placed in a TCC cast at 90 degrees to try to keep his foot from being in a contracted position. 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 The patient will be following up with his orthopedic surgeon on Thursday and I educated to the patient as well as the staff to discuss with her possible revision or additional surgery but the orthopedic surgeon will need to take over the BKA a stump since she did the initial procedure. Follow-up at the wound care center with Dr. Sarah in 1 week. (2) Non-pressure chronic ulcer of other part of right foot with fat layer exposed: CODE(S): L97.512 - Non-pressure chronic ulcer of other part of right foot with fat layer exposed (3) Non-pressure chronic ulcer of other part of left lower leg with fat layer exposed: CODE(S): L97.822 - Non-pressure chronic ulcer of other part of left lower leg with fat layer exposed (4) Other specified peripheral vascular diseases: CODE(S): I73.89 - Other specified peripheral vascular diseases
--- NOTE | 2024-01-15 09:33 | WC ---
PHOTO 01/13/24 RIGHT LATERAL ANKLE
--- NOTE | 2024-01-15 09:34 | WC ---
PHOTO 01/13/24 LEFT STUMP
--- NOTE | 2024-01-15 09:35 | WC ---
PHOTO RIGHT LATERAL FOOT 01/13/24
== END 2024-01-13 23:59 | disposition home or self-care (01) ==
LOC: WC 09:15
PROVIDERS: PCP Internal Medicine Infectious Disease; Referring Provider Internal Medicine Infectious Disease; Visit Provider Podiatrist Foot & Ankle Surgery
DX: T87.89 Other complications of amputation stump (principal); E11.622 Type 2 diabetes mellitus with other skin ulcer; L97.319 Non-pressure chronic ulcer of right ankle with unspecified severity; L97.822 Non-pressure chronic ulcer of other part of left lower leg with fat layer exposed; E11.42 Type 2 diabetes mellitus with diabetic polyneuropathy; E11.51 Type 2 diabetes mellitus with diabetic peripheral angiopathy without gangrene; Y83.5 Amputation of limb(s) as the cause of abnormal reaction of the patient, or of later complication, without mention of misadventure at the time of the procedure
CPT/HCPCS: 11042; 15271; 29445; Q4186; Q4187

== ENCOUNTER 2024-02-10 09:15 | Outpatient (RCR) | payer MEDICARE, MEDICAID, SELFPAY ==
[2024-01-14 00:16] VITALS: BP 84/34; PULSE 114; RESP 18; TEMP 35.9; BMI 44.4
[2024-01-20 09:08] VITALS: BP 123/65; PULSE 96; RESP 18; TEMP 36.2; BMI 44.4
--- NOTE | 2024-01-20 12:01 | PN.PCM_ITS ---
History of Present Illness Date of Service: 01/20/24 Chief Complaint: Bilateral leg wounds. History of Wound: By leg wounds. Subjective Subjective Mr. Olivares is a 78-year-old diabetic male presenting through a concern today follow-up evaluation of full-thickness wound to the right lateral ankle and full-thickness wound to the left below-knee amputation stump. Patient will be following up with his orthopedic surgeon Dr. Ramon on 01/21/2024 for evaluation of the left BKA stump. Patient asked what he should say to her in regards to keeping the leg and simply said to the patient you are better off letting her know that you want to keep the leg and if she is not willing to revise the below-knee amputation he will need a second opinion which she was understanding of. To the right lower extremity the patient kept the T CC cast clean dry and intact. He denied any pain in the right lower extremity. Patient is still nonambulatory. Denies trauma. Denies constitutional symptoms Objective Data Objective Data Vital Signs: Vital Signs Temp Pulse Resp BP O2 Del Method 97.2 F L 96 18 123/65 H Room Air 01/20/24 09:08 01/20/24 09:08 01/20/24 09:08 01/20/24 09:08 01/20/24 09:08 Oxygen Delivery Method Room Air Weight: 161.479 kg Body Mass Index (BMI) 44.4 Physical Exam Narrative Vascular: DP and PT pulses are faintly palpable to the right lower extremity. DP and PT pulses on Doppler are biphasic. 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 Skin temperature gradient is warm to warm from proximal ankle to distal stump to left lower extremity with mild focal increase. Neurological: Light touch intact. Protective sensation is diminished. Dermatological: 2 full-thickness wound to the bilateral lower extremity. The right wound measures 0.2 x 1.5 x 0.3 cm with evidence of stable eschar after pressure from the TCC cast. The left below knee amputation stump measures 0.7 x 0.7 x 0.2 cm. There is evidence of periwound erythema to both ulcerations. Again, there is dry stable eschar to the right lateral heel secondary to pressure from the cast. There is evidence of blanchable erythema appreciated to the left below-knee amputation stump. Left below-knee amputation stump wound base is granular nature. The right lateral ankle wound shows evidence of stable eschar. Excisional debridement down to including subcutaneous tissue with a number 3 mm dermal curette to the left below the knee amputation stump without incident. Predebridement measurement is 0.6 x 0.6 x 0.1 cm. Postdebridement measurement is 0.7 x 0.7 x 2.0 cm. Excisional debridement down to and including subcutaneous tissue with a number 3 mm dermal curette to the lateral right ankle without incident. Predebridement measurement was stable eschar. Postdebridement measurement is 1.2 x 1.5 x 0.3 cm. Musculoskeletal: Evidence of varus contracture to the right ankle secondary to tight posterior tibial tendon and anterior tibial tendon. Full range of motion of the knee without pain or crepitus. No pain to palpation to bilateral full- thickness ulcerations. No pain with calf compression bilateral. Debridement Note Debridement Note Debridement Free Text: Excisional debridement down to including subcutaneous tissue with a number 3 mm dermal curette to the left below the knee amputation stump without incident. Predebridement measurement is 0.6 x 0.6 x 0.1 cm. Postdebridement measurement is 0.7 x 0.7 x 2.0 cm. Excisional debridement down to and including subcutaneous tissue with a number 3 mm dermal curette to the lateral right ankle without incident. Predebridement measurement was stable eschar. Postdebridement measurement is 1.2 x 1.5 x 0.3 cm. 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 ) Arrival Mode Wheelchair Transfer Assistance Jackelyn Lift Patient Identification Verified (Name & Yes ) Height and Weight Body Mass Index (BMI) 44.4 BMI Classification Obese Vital Signs Temperature (97.8 F-99.1 F) 97.2 F L Temperature Source Temporal Pulse Rate (60-100) 96 Pulse Location Monitor Respiratory Rate (12-18) 18 Respiratory rate source Observation Oxygen Delivery Method Room Air Blood Pressure (90/60-120/80) 123/65 H Blood Pressure Mean (mm Hg) 84 Source Monitor Position Sitting Blood Pressure Location Right Arm History Since Last Visit- (Skip if this is Patient's initial visit) Have you changed medications since your No last visit? Any new allergies or adverse reactions No Had a fall/change in ADL's that may No increase risk of falls Signs or symptoms of abuse and/or No neglect since last visit Have you been in the hospital since your No last visit? Has dressing in place as prescribed Yes Has compression in place as prescribed Yes Has offloadiing in place as prescribed Yes Experienced any changes in pain level or No management Left Footwear [place]/Foam Right Footwear Total Contact Cast Pain Scale: 0-10 Numeric Is Patient Pain Free? Yes - Nurse 1 - General Ulcer Measurement Start: 01/20/24 09:08 Freq: Status: Active Protocol: Activity Type Activity Date Activity User E-sign Co-sign Detail Recorded Client Recorded Date Recorded By Document 01/20/24 09:08 [facility] 01/20/24 09:26 01/20/24 09:08 Wound Center Nurse 1 #9 RT LAT FT -Current Size (cm) - Length 0.1 -Current Size (cm) - Width 0.1 -Current Size (cm) - Depth 0.1 -Total Square Cm 0.01 -Granulation Amt Large (67-100%) #8 Lt stump -Current Size (cm) - Length 0.5 -Current Size (cm) - Width 0.5 -Current Size (cm) - Depth 0.6 -Total Square Cm 0.25 -Date of Last Picture (Recall this 01/20/24 field) -Photo Taken Yes -Epithelialization Medium 34-66% -Tunneling No -Undermining/Tunneling No -Circular Undermining No -Exudate Amt Medium -Exudate Type Serosanguineous -Wound Margin Distinct, Outline Attached -Granulation Amt Medium (34-66%) -Necrosis Amt Medium (34-66%) -Texture (Michell-wound Skin Appearance) Assessed -Moisture (Michell-wound Skin Appearance) Assessed -Color (Michell-wound Skin Appearance) Assessed -Temperature (Michell-wound Skin No Abnormality Appearance) (Pt Warm) -Ulcer Cleansing Soap and Water -Foul Odor after Cleansing No -Anesthetic Used 5% Lidocaine Gel #4 RT LAT ANKLE -Current Size (cm) - Length 1.2 -Current Size (cm) - Width 1.9 -Current Size (cm) - Depth 0.1 -Total Square Cm 2.28 -Date of Last Picture (Recall this 01/20/24 field) -Photo Taken Yes -Epithelialization Small 1-33% -Tunneling No -Undermining/Tunneling No -Circular Undermining No -Exudate Type Serosanguineous -Wound Margin Distinct, Outline Attached -Granulation Amt Medium (34-66%) -Granulation Quality Red -Slough/Fibrin No -Texture (Michell-wound Skin Appearance) Assessed -Moisture (Michell-wound Skin Appearance) Assessed -Color (Michell-wound Skin Appearance) Assessed -Temperature (Michell-wound Skin No Abnormality Appearance) (Pt Warm) -Ulcer Cleansing Soap and Water -Foul Odor after Cleansing No -Anesthetic Used 5% Lidocaine Gel WC - Nurse 2 - General Ulcer CM Notes Start: 01/20/24 09:08 Freq: Status: Active Protocol: Activity Type Activity Date Activity User E-sign Co-sign Detail Recorded Client Recorded Date Recorded By Document 01/20/24 09:39 JF 000 01/20/24 09:47 JF 01/20/24 09:39 Wound Center Nurse 2 #9 RT LAT FT -Time 09:41 -Correct Patient No -Correct Side, Site, Position No -Correct Procedure No -Procedure Performed No -Post Debridement (cm) - Length 0 -Post Debridement (cm) - Width 0 -Post Debridement (cm) - Depth 0 -Total Square (Post) (cm) 0 -Area of Debridement (cm) - Length 0 -Area of Debridement (cm) - Width 0 -Total Square (Area) (cm) 0 -Tunneling No -Undermining/Tunneling No -Circular Undermining No -Wound/Ulcer Outcome Healed- Epithelialized -Ulcer Cleansing Rinsed/ Irrigated with Saline -Foul Odor after Cleansing No -Bioengineered Tissue No -Bleeding Controlled with Pressure -Treatment Response Procedure Tolerated Well -Offloading No -Debridement - Subq, 1st 20sq cm Yes #8 Lt stump -Time 09:41 -Correct Patient Yes -Correct Side, Site, Position Yes -Correct Procedure Yes -Procedure Performed Yes -Type of Procedure Debridement -Clinical Debridement Subcutaneous -Tissue Removed Subcutaneous -Post Debridement (cm) - Length 0.7 -Post Debridement (cm) - Width 0.7 -Post Debridement (cm) - Depth 2.0 -Total Square (Post) (cm) 0.49 -Area of Debridement (cm) - Length 0.7 -Area of Debridement (cm) - Width 0.7 -Total Square (Area) (cm) 0.49 -Tunneling No -Undermining/Tunneling No -Circular Undermining No -Wound/Ulcer Outcome Not Healed -Ulcer Cleansing Rinsed/ Irrigated with Saline -Foul Odor after Cleansing No -Bioengineered Tissue No -Bleeding Controlled with Pressure -Treatment Response Procedure Tolerated Well -Offloading No -Debridement - Subq, 1st 20sq cm Yes #4 RT LAT ANKLE -Time 09:43 -Correct Patient Yes -Correct Side, Site, Position Yes -Correct Procedure Yes -Procedure Performed Yes -Type of Procedure Debridement -Clinical Debridement Muscle / Fascia -Tissue Removed Muscle,Fascia -Post Debridement (cm) - Length 0.2 -Post Debridement (cm) - Width 1.5 -Post Debridement (cm) - Depth 0.3 -Total Square (Post) (cm) 0.30 -Area of Debridement (cm) - Length 0.2 -Area of Debridement (cm) - Width 1.5 -Total Square (Area) (cm) 0.30 -Tunneling No -Undermining/Tunneling No -Circular Undermining No -Wound/Ulcer Outcome Not Healed -Ulcer Cleansing Rinsed/ Irrigated with Saline -Foul Odor after Cleansing No -Bioengineered Tissue No -Bleeding Controlled with Pressure -Treatment Response Procedure Tolerated Well -Offloading No -Debridement - Subq, 1st 20sq cm No -Debridement - Muscle / Fascia, 1st Yes 20sq cm Pain Scale: 0-10 Numeric Is Patient Pain Free? Yes - Nurse 3 - General Ulcer D/C NN Start: 01/20/24 09:08 Freq: Status: Active Protocol: Activity Type Activity Date Activity User E-sign Co-sign Detail Recorded Client Recorded Date Recorded By Document 01/20/24 10:04 [facility] 01/20/24 10:05 01/20/24 10:04 Wound Care Center Nurse 3 #8 Lt stump -Ulcer Cleansing Not Cleansed -Foul Odor after Cleansing No -Primary Dressing Applied Nugauze, Iodoform 1/2in -Primary Dressing Covered/Secured with Dry Gauze, Secured with Tape -Nugauze, Iodoform 1/2in 1 #4 RT LAT ANKLE -Ulcer Cleansing Not Cleansed -Foul Odor after Cleansing No -Primary Dressing Covered/Secured with Dry Gauze,Dry Gauze & Roll Gauze,Secured with Tape Left -Lotion applied to leg before No compression wrap -Tubular Bandage Double Layer -Size of Tubigrip Used Size F -Size F ($) 2 Right -Lotion applied to leg before No compression wrap -Tubular Bandage Double Layer -Size of Tubigrip Used Size F -Size F ($) 2 Pain Scale: 0-10 Numeric Is Patient Pain Free? Yes WC - Visit Discharge Discharge Condition Stable Ambulatory Status Wheelchair Transportation Private Auto Clinical Summary of Care Provided Yes Assessment/Plan Assessment/Plan (1) Non-pressure chronic ulcer of other part of right foot with fat layer exposed: CODE(S): L97.512 - Non-pressure chronic ulcer of other part of right foot with fat layer exposed PLAN: Patient was examined and evaluated. All findings were discussed with the patient. All questions were answered to the patient's satisfaction. Excisional debridement down to including subcutaneous tissue with a number 3 mm dermal curette to the left below the knee amputation stump without incident. Predebridement measurement is 0.6 x 0.6 x 0.1 cm. Postdebridement measurement is 0.7 x 0.7 x 2.0 cm. Excisional debridement down to and including subcutaneous tissue with a number 3 mm dermal curette to the lateral right ankle without incident. Predebridement measurement was stable eschar. Postdebridement measurement is 1.2 x 1.5 x 0.3 cm. The bilateral lower extremities were cleaned and patted dry. Packing was applied to the left full-thickness wound followed by dry sterile dressing and Tubigrip. The right lateral ankle was dressed with Betadine paint, Betadine soaked gauze dry sterile dressing and single-layer Tubigrip for compression. Educated the patient discussed with Dr. Ramon on his 01/21/2024 appointment revision of the below-knee amputation as he already has a prosthesis for that limb. If she is unwilling to revise I recommended second opinion or if she is okay I will take the patient in and perform a soft tissue revision without any bone cuts of the full-thickness wound to the left leg. I also discussed with the patient that he will most likely need a TTC fusion with intramedullary nail to keep his foot rectus as it would be used to transfer and ambulate when able. Follow-up at the wound care center with Dr. Sarah in 1 week. (2) Non-pressure chronic ulcer of other part of left lower leg with fat layer exposed: CODE(S): L97.822 - Non-pressure chronic ulcer of other part of left lower leg with fat layer exposed (3) Chronic painful diabetic polyneuropathy: CODE(S): E11.42 - Type 2 diabetes mellitus with diabetic polyneuropathy (4) Other specified peripheral vascular diseases: CODE(S): I73.89 - Other specified peripheral vascular diseases
[2024-01-27 09:08] VITALS: BP 121/66; PULSE 102; RESP 18; TEMP 36.1; BMI 44.4
--- NOTE | 2024-01-27 10:07 | PN.PCM_ITS ---
History of Present Illness Date of Service: 01/27/24 Chief Complaint: Bilateral leg wounds. History of Wound: By leg wounds. Subjective Subjective Mr. 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 Patient did follow-up with his orthopedic surgeon who performed the below knee amputation to left lower extremity as well as secondary to evaluation of the wound to the BKA stump. Patient orthopedics states that the wound is looking better and continue wound care at [facility]. He admits to control blood sugar. He admits regular dressing changes by nursing staff at [facility]. He denies trauma. Denies constitutional symptoms. No other complaints at this time. Objective Data Objective Data Vital Signs: Vital Signs Temp Pulse Resp BP O2 Del Method 97.0 F L 102 H 18 121/66 H Room Air 01/27/24 09:08 01/27/24 09:08 01/27/24 09:08 01/27/24 09:08 01/27/24 09:08 Oxygen Delivery Method Room Air Weight: 161.479 kg Body Mass Index (BMI) 44.4 Physical Exam Narrative Vascular: DP and PT pulses are faintly palpable to the right lower extremity. CFT is brisk to the bilateral lower extremity. BKA to the left lower extremity. Evidence of erythema to the full-thickness wound to the left BKA stump. Evidence of erythema to the lateral right ankle full-thickness wound. Neurological: Light touch intact. Protective sensation is absent. Dermatological: Full-thickness wound to the left below-knee amputation stump measuring 0.5 x 0.5 x 3.1 cm. Negative probe to bone. Full-thickness wound to the lateral right ankle measuring 1.2 x 1.1 x 0.5 cm. Probe to muscle. Both wounds show evidence of periwound erythema which are blanchable in nature. No proximal streaking. Cannot rule out infection to left lower extremity. Cannot rule out infection to the right lower extremity. Excisional debridement down to including subcutaneous tissue with a number 3 mm dermal curette to the left below the knee amputation stump without incident. Predebridement measurement is 0.4 x 0.4 x 1.5 cm. Postdebridement measurement is 0.5 x 0.5 x 3.1 cm. Excisional debridement down to and including subcutaneous tissue with a number 3 mm dermal curette to the lateral right ankle without incident. Predebridement measurement was 1.0 x 0.9 x 0.3 cm. Postdebridement measurement is 1.2 x 1.1 x 0.5 cm. Musculoskeletal: Left low knee amputation. Evidence of valgus contracture to the right ankle. Patient is nonambulatory and resides in wheelchair. No pain with calf pressure bilateral. Debridement Note Debridement Note Debridement Free Text: Excisional debridement down to including subcutaneous tissue with a number 3 mm dermal curette to the left below the knee amputation stump without incident. Predebridement measurement is 0.4 x 0.4 x 1.5 cm. Postdebridement measurement is 0.5 x 0.5 x 3.1 cm. Excisional debridement down to and including subcutaneous tissue with a number 3 mm dermal curette to the lateral right ankle without incident. Predebridement measurement was 1.0 x 0.9 x 0.3 cm. Postdebridement measurement is 1.2 x 1.1 x 0.5 cm. Post-Debridement Measurements and Additional Note: Post-Debridement Measurements/Treatment - Nurse 1 - General Ulcer Assessment Start: 01/20/24 09:08 Freq: Status: Active Protocol: FABIENNE Activity Type Activity Date Activity User E-sign Co-sign Detail Recorded Client Recorded Date Recorded By Document 01/20/24 09:08 [facility] 01/20/24 09:26 Document 01/27/24 09:08 KW asfd 01/27/24 09:16 KW 01/20/24 01/27/24 09:08 09:08 - Today's Visit Information Type of service Follow-up Visit Follow-up Visit (Physician/[employer] (Physician/[employer] ) ) Arrival Mode Wheelchair Wheelchair Transfer Assistance Jackelyn Lift Accompanied by caregiver Patient Identification Verified (Name & Yes Yes ) Height and Weight Body Mass Index (BMI) 44.4 44.4 BMI Classification Obese Obese Vital Signs Temperature (97.8 F-99.1 F) 97.2 F L 97.0 F L Temperature Source Temporal Temporal Pulse Rate (60-100) 96 102 H Pulse Location Monitor Monitor Respiratory Rate (12-18) 18 18 Respiratory rate source Observation Observation Oxygen Delivery Method Room Air Room Air Blood Pressure (90/60-120/80) 123/65 H 121/66 H Blood Pressure Mean (mm Hg) 84 84 Source Monitor Monitor Position Sitting Sitting Blood Pressure Location Right Arm Right Arm History Since Last Visit- (Skip if this is Patient's initial visit) Have you changed medications since your No No last visit? Any new allergies or adverse reactions No No Had a fall/change in ADL's that may No No increase risk of falls Signs or symptoms of abuse and/or No No neglect since last visit Have you been in the hospital since your No No last visit? Has dressing in place as prescribed Yes Yes Has compression in place as prescribed Yes Yes Has offloadiing in place as prescribed Yes Yes Experienced any changes in pain level or No No management Left Footwear [place]/Foam Regular Shoe Right Footwear Total Contact Regular Shoe Cast Pain Scale: 0-10 Numeric Is Patient Pain Free? Yes Yes - Nurse 1 - General Ulcer Measurement Start: 01/20/24 09:08 Freq: Status: Active Protocol: Activity Type Activity Date Activity User E-sign Co-sign Detail Recorded Client Recorded Date Recorded By Document 01/20/24 09:08 wc 01/20/24 09:26 GM Document 01/27/24 09:08 KW asfd 01/27/24 09:16 KW 01/20/24 01/27/24 09:08 09:08 Wound Center Nurse 1 #9 RT LAT FT -Current Size (cm) - Length 0.1 -Current Size (cm) - Width 0.1 -Current Size (cm) - Depth 0.1 -Total Square Cm 0.01 -Granulation Amt Large (67-100%) #8 Lt stump -Current Size (cm) - Length 0.5 0.4 -Current Size (cm) - Width 0.5 0.5 -Current Size (cm) - Depth 0.6 1.6 -Total Square Cm 0.25 0.20 -Date of Last Picture (Recall this 01/20/24 field) -Photo Taken Yes -Epithelialization Medium 34-66% -Tunneling No -Undermining/Tunneling No -Circular Undermining No -Exudate Amt Medium Small -Exudate Type Serosanguineous Serosanguineous -Wound Margin Distinct, Distinct, Outline Outline Attached Attached -Granulation Amt Medium (34-66%) Small (1-33%) -Granulation Quality [place],Red -Necrosis Amt Medium (34-66%) Large (67-100%) -Necrotic Tissue Type Adherent Slough -Texture (Michell-wound Skin Appearance) Assessed Assessed -Moisture (Michell-wound Skin Appearance) Assessed Assessed -Color (Michell-wound Skin Appearance) Assessed Assessed -Temperature (Michell-wound Skin No Abnormality No Abnormality Appearance) (Pt Warm) (Pt Warm) -Tenderness on Palpation (Michell-wound No Skin Appearance) -Ulcer Cleansing Soap and Water -Foul Odor after Cleansing No -Anesthetic Used 5% Lidocaine 5% Lidocaine Gel Gel #4 RT LAT ANKLE -Current Size (cm) - Length 1.2 0.9 -Current Size (cm) - Width 1.9 0.7 -Current Size (cm) - Depth 0.1 0.6 -Total Square Cm 2.28 0.63 -Date of Last Picture (Recall this 01/20/24 field) -Photo Taken Yes -Epithelialization Small 1-33% -Tunneling No -Undermining/Tunneling No -Circular Undermining No -Exudate Type Serosanguineous Serosanguineous -Wound Margin Distinct, Distinct, Outline Outline Attached Attached -Granulation Amt Medium (34-66%) Small (1-33%) -Granulation Quality Red [place],Red -Slough/Fibrin No -Necrosis Amt Large (67-100%) -Necrotic Tissue Type Adherent Slough -Texture (Michell-wound Skin Appearance) Assessed Assessed, Localized Edema -Moisture (Michell-wound Skin Appearance) Assessed Assessed -Color (Michell-wound Skin Appearance) Assessed Assessed, Erythema -Temperature (Michell-wound Skin No Abnormality No Abnormality Appearance) (Pt Warm) (Pt Warm) -Tenderness on Palpation (Michell-wound No Skin Appearance) -Ulcer Cleansing Soap and Water Soap and Water -Foul Odor after Cleansing No No -Anesthetic Used 5% Lidocaine 5% Lidocaine Gel Gel Right Calf (cm) 45 Right Ankle (cm) 26.3 WC - Nurse 2 - General Ulcer CM Notes Start: 01/20/24 09:08 Freq: Status: Active Protocol: Activity Type Activity Date Activity User E-sign Co-sign Detail Recorded Client Recorded Date Recorded By Document 01/20/24 09:39 JF 000 01/20/24 09:47 JF Edit Result 01/20/24 09:39 JF (1) 0000 08/07/24 12:07 JF Document 01/27/24 09:29 JF 0000 01/27/24 09:37 JF (1) #4 RT LAT ANKLE - Post Debridement (cm) - Length 0.2 => 1.2 - Total Square (Post) (cm) 0.30 => 1.80 - Area of Debridement (cm) - Length 0.2 => 1.2 - Total Square (Area) (cm) 0.30 => 1.80 01/20/24 01/27/24 09:39 09:29 Wound Center Nurse 2 #9 RT LAT FT -Time :41 -Correct Patient No -Correct Side, Site, Position No -Correct Procedure No -Procedure Performed No -Post Debridement (cm) - Length 0 -Post Debridement (cm) - Width 0 -Post Debridement (cm) - Depth 0 -Total Square (Post) (cm) 0 -Area of Debridement (cm) - Length 0 -Area of Debridement (cm) - Width 0 -Total Square (Area) (cm) 0 -Tunneling No -Undermining/Tunneling No -Circular Undermining No -Wound/Ulcer Outcome Healed- Epithelialized -Ulcer Cleansing Rinsed/ Irrigated with Saline -Foul Odor after Cleansing No -Bioengineered Tissue No -Bleeding Controlled with Pressure -Treatment Response Procedure Tolerated Well -Offloading No -Debridement - Subq, 1st 20sq cm Yes #8 Lt stump -Time 09:41 09:32 -Correct Patient Yes Yes -Correct Side, Site, Position Yes Yes -Correct Procedure Yes Yes -Procedure Performed Yes Yes -Type of Procedure Debridement Debridement -Clinical Debridement Subcutaneous Muscle / Fascia -Tissue Removed Subcutaneous Muscle,Fascia -Post Debridement (cm) - Length 0.7 0.3 -Post Debridement (cm) - Width 0.7 0.4 -Post Debridement (cm) - Depth 2.0 3.1 -Total Square (Post) (cm) 0.49 0.12 -Area of Debridement (cm) - Length 0.7 0.3 -Area of Debridement (cm) - Width 0.7 0.4 -Total Square (Area) (cm) 0.49 0.12 -Tunneling No -Undermining/Tunneling No No -Circular Undermining No No -Wound/Ulcer Outcome Not Healed Not Healed -Ulcer Cleansing Rinsed/ Rinsed/ Irrigated with Irrigated with Saline Saline -Foul Odor after Cleansing No No -Bioengineered Tissue No No -Bleeding Controlled with Pressure Pressure -Treatment Response Procedure Procedure Tolerated Well Tolerated Well -Offloading No No -Assistive Device(s) Wheelchair -Debridement - Subq, 1st 20sq cm Yes -Debridement - Muscle / Fascia, 1st No 20sq cm #4 RT LAT ANKLE -Time 09:43 09:37 -Correct Patient Yes Yes -Correct Side, Site, Position Yes Yes -Correct Procedure Yes Yes -Procedure Performed Yes Yes -Type of Procedure Debridement Debridement -Clinical Debridement Muscle / Fascia Muscle / Fascia -Tissue Removed Muscle,Fascia Muscle,Fascia -Post Debridement (cm) - Length 1.2 1.2 -Post Debridement (cm) - Width 1.5 1.1 -Post Debridement (cm) - Depth 0.3 0.5 -Total Square (Post) (cm) 1.80 1.32 -Area of Debridement (cm) - Length 1.2 1.2 -Area of Debridement (cm) - Width 1.5 1.1 -Total Square (Area) (cm) 1.80 1.32 -Tunneling No No -Undermining/Tunneling No No -Circular Undermining No No -Wound/Ulcer Outcome Not Healed Not Healed -Ulcer Cleansing Rinsed/ Rinsed/ Irrigated with Irrigated with Saline Saline -Foul Odor after Cleansing No No -Bioengineered Tissue No No -Bleeding Controlled with Pressure Pressure -Treatment Response Procedure Procedure Tolerated Well Tolerated Well -Offloading No No -Debridement - Subq, 1st 20sq cm No -Debridement - Muscle / Fascia, 1st Yes Yes 20sq cm Pain Scale: 0-10 Numeric Is Patient Pain Free? Yes Yes - Nurse 3 - General Ulcer D/C NN Start: 01/20/24 09:08 Freq: Status: Active Protocol: Activity Type Activity Date Activity User E-sign Co-sign Detail Recorded Client Recorded Date Recorded By Document 01/20/24 10:04 GM 01/20/24 10:05 GM Document 01/27/24 09:29 GM 01/27/24 09:30 GM Edit Result 01/27/24 09:29 GM (1) 01/27/24 09:32 GM Document 01/27/24 09:43 CP 01/27/24 09:46 CP (1) #8 Lt stump - Ulcer Cleansing Not Cleansed => - Foul Odor after Cleansing No => - Primary Dressing Applied Mepilex Border, => Promogran Rafaela => Matter => - Mepilex Border 1 => - Promogran Rafaela Matter 1 => Left - Compression Wrap Armaan Wrap => 01/20/24 01/27/24 01/27/24 10:04 09:29 09:43 Wound Care Center Nurse 3 #8 Lt stump -Ulcer Cleansing Not Cleansed Not Cleansed -Foul Odor after Cleansing No No -Primary Dressing Applied Nugauze, Nugauze, Iodoform 1/2in Iodoform 1/4in -Primary Dressing Covered/Secured with Dry Gauze, Secured with Tape -Nugauze, Iodoform 1/4in 1 -Nugauze, Iodoform 1/2in 1 #4 RT LAT ANKLE -Ulcer Cleansing Not Cleansed Not Cleansed -Foul Odor after Cleansing No -Primary Dressing Covered/Secured with Dry Gauze,Dry Dry Gauze,Dry Gauze & Roll Gauze & Roll Gauze,Secured Gauze,Secured with Tape with Tape Left -Lotion applied to leg before No compression wrap -Tubular Bandage Double Layer Double Layer -Size of Tubigrip Used Size F Size F -Size F ($) 2 2 Right -Lotion applied to leg before No compression wrap -Tubular Bandage Double Layer Double Layer -Size of Tubigrip Used Size F Size F -Size F ($) 2 2 Pain Scale: 0-10 Numeric Is Patient Pain Free? Yes Yes Yes WC - Visit Discharge Discharge Condition Stable Stable Ambulatory Status Wheelchair Ambulatory Transportation Private Auto Private Auto Clinical Summary of Care Provided Yes Yes Assessment/Plan Assessment/Plan (1) Non-pressure chronic ulcer of right ankle with necrosis of muscle: CODE(S): L97.313 - Non-pressure chronic ulcer of right ankle with necrosis of muscle PLAN: Patient was examined and evaluated. All findings were discussed with the patient. All questions were answered to the patient's satisfaction. Excisional debridement down to including subcutaneous tissue with a number 3 mm dermal curette to the left below the knee amputation stump without incident. Predebridement measurement is 0.4 x 0.4 x 1.5 cm. Postdebridement measurement is 0.5 x 0.5 x 3.1 cm. Excisional debridement down to and including subcutaneous tissue with a number 3 mm dermal curette to the lateral right ankle without incident. Predebridement measurement was 1.0 x 0.9 x 0.3 cm. Postdebridement measurement is 1.2 x 1.1 x 0.5 cm. Bilateral lower extremities were cleaned and patted dry. The left lower extremity was packed with iodoform packing dry sterile dressing and Tubigrip. Culture was taken of the right full-thickness lateral ankle wound. The ulceration was dressed with Betadine soaked gauze dry sterile dressing and single-layer Tubigrip. Will plan for surgical intervention to the bilateral lower extremity. The left lower extremity will consist of incision and drainage with application of antibiotic beads and delayed primary closure. The right lower extremity will consist of surgical skin graft site prep with application of skin graft substitute. I did discuss with the patient that he would probably benefit from a TTC fusion versus ankle fusion to allow his foot to be more rectus and to stop the valgus attitude. He will think about it but would like to move forward with the above procedure as discussed. Follow-up 1 week Follow-up at the wound care center with Dr. Sarah in 1 week. (2) Non-pressure chronic ulcer of other part of left lower leg with fat layer exposed: CODE(S): L97.822 - Non-pressure chronic ulcer of other part of left lower leg with fat layer exposed (3) Other specified peripheral vascular diseases: CODE(S): I73.89 - Other specified peripheral vascular diseases (4) Chronic painful diabetic polyneuropathy: CODE(S): E11.42 - Type 2 diabetes mellitus with diabetic polyneuropathy
[2024-02-03 09:30] VITALS: BP 130/73; PULSE 98; RESP 18; TEMP 36.1; BMI 44.4
--- NOTE | 2024-02-03 11:00 | PCM.WC.PN ---
History of Present Illness Date of Service: 02/03/24 Chief Complaint: Bilateral leg wounds. History of Wound: By leg wounds. Subjective Subjective Mr. Olivares is a 78-year-old diabetic male presenting to wound care center today for follow-up evaluation of bilateral lower extremity ulcerations. Patient has been doing dressing changes at his SNF. His blood sugar is well-controlled. He denies any drainage or redness at this time. He denies any pain to bilateral lower extremity. 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 He ambulates only for transfer from his wheelchair. Denies trauma. Denies constitutional symptoms. And pedal complaints at this time. Objective Data Objective Data Vital Signs: Vital Signs Temp Pulse Resp BP O2 Del Method 96.9 F L 98 18 130/73 H Room Air 02/03/24 09:30 02/03/24 09:30 02/03/24 09:30 02/03/24 09:30 02/03/24 09:30 Oxygen Delivery Method Room Air Weight: 161.479 kg Body Mass Index (BMI) 44.4 Lab / Micro Data Micro: Microbiology 01/27/24 09:35 Ulcer, Decubitus - Ankle Gram Stain - Final 01/27/24 09:35 Ulcer, Decubitus - Ankle Wound Culture - Final Staphylococcus aureus 01/27/24 09:35 Ulcer, Decubitus - Ankle Anaerobic Culture - Final No anaerobic bacteria isolated. Physical Exam Narrative Vascular: DP and PT pulses are faintly palpable to the right lower extremity. CFT is brisk to the bilateral lower extremity. BKA to the left lower extremity. Evidence of erythema to the full-thickness wound to the left BKA stump. Evidence of erythema to the lateral right ankle full-thickness wound. Neurological: Light touch intact. Protective sensation is absent. Dermatological: Full-thickness wound to the left below-knee amputation stump measuring 0.7 x 0.7 x 1.5 cm. Negative probe to bone. Full-thickness wound to the lateral right ankle measuring 0.8 x 1.1 x 0.6 cm. Probe to bone. Improved periwound erythema to the right ankle. Still evidence of blanchable periwound erythema to the left below-knee amputation site. No proximal streaking. Cannot rule out infection to left lower extremity. Excisional debridement down to including subcutaneous tissue with a number 3 mm dermal curette to the left below the knee amputation stump without incident. Predebridement measurement is 0.5 x 0.5 x 1.0 cm. Postdebridement measurement is 0.7 x 0.7 x 1.5 cm. Excisional debridement down to and including subcutaneous tissue with a number 3 mm dermal curette to the lateral right ankle without incident. Predebridement measurement was 0.7 x 1.0 x 0.4 cm. Postdebridement measurement is 0.8 x 1.1 x 0.6 cm. Musculoskeletal: Left low knee amputation. Evidence of valgus contracture to the right ankle. Patient is nonambulatory and resides in wheelchair. No pain with calf pressure bilateral. Debridement Note Debridement Note Debridement Free Text: Excisional debridement down to including subcutaneous tissue with a number 3 mm dermal curette to the left below the knee amputation stump without incident. Predebridement measurement is 0.5 x 0.5 x 1.0 cm. Postdebridement measurement is 0.7 x 0.7 x 1.5 cm. Excisional debridement down to and including subcutaneous tissue with a number 3 mm dermal curette to the lateral right ankle without incident. Predebridement measurement was 0.7 x 1.0 x 0.4 cm. Postdebridement measurement is 0.8 x 1.1 x 0.6 cm. Post-Debridement Measurements and Additional Note: Post-Debridement Measurements/Treatment - Nurse 1 - General Ulcer Assessment Start: 01/20/24 09:08 Freq: Status: Active Protocol: .LOWEXT Activity Type Activity Date Activity User E-sign Co-sign Detail Recorded Client Recorded Date Recorded By Document 01/20/24 09:08 [facility] 01/20/24 09:26 Document 01/27/24 09:08 KW asfd 01/27/24 09:16 KW Document 02/03/24 09:30 KW [id number] 02/03/24 09:44 KW 01/20/24 01/27/24 02/03/24 09:08 09:08 09:30 - Today's Visit Information Type of service Follow-up Visit Follow-up Visit Initial Visit (Physician/VESSEL SPECIALIST (Physician/VESSEL SPECIALIST ) ) Arrival Mode Wheelchair Wheelchair Wheelchair Transfer Assistance Jackelyn Lift Accompanied by caregiver nurse Patient Identification Verified (Name & Yes Yes Yes ) Height and Weight Body Mass Index (BMI) 44.4 44.4 44.4 BMI Classification Obese Obese Obese Vital Signs Temperature (97.8 F-99.1 F) 97.2 F L 97.0 F L 96.9 F L Temperature Source Temporal Temporal Temporal Pulse Rate (60-100) 96 102 H 98 Pulse Location Monitor Monitor Monitor Respiratory Rate (12-18) 18 18 18 Respiratory rate source Observation Observation Monitor Oxygen Delivery Method Room Air Room Air Room Air Blood Pressure (90/60-120/80) 123/65 H 121/66 H 130/73 H Blood Pressure Mean (mm Hg) 84 84 92 Source Monitor Monitor Monitor Position Sitting Sitting Sitting Blood Pressure Location Right Arm Right Arm Left Arm History Since Last Visit- (Skip if this is Patient's initial visit) Have you changed medications since your No No No last visit? Any new allergies or adverse reactions No No No Had a fall/change in ADL's that may No No No increase risk of falls Signs or symptoms of abuse and/or No No No neglect since last visit Have you been in the hospital since your No No No last visit? Has dressing in place as prescribed Yes Yes Yes Has compression in place as prescribed Yes Yes Yes Has offloadiing in place as prescribed Yes Yes Yes Experienced any changes in pain level or No No No management Left Footwear Russell/Foam Regular Shoe No Footwear Right Footwear Total Contact Regular Shoe No Footwear Cast Pain Scale: 0-10 Numeric Is Patient Pain Free? Yes Yes Yes WC - Nurse 1 - General Ulcer Measurement Start: 01/20/24 09:08 Freq: Status: Active Protocol: Activity Type Activity Date Activity User E-sign Co-sign Detail Recorded Client Recorded Date Recorded By Document 01/20/24 09:08 [facility] 01/20/24 09:26 Document 01/27/24 09:08 KW asfd 01/27/24 09:16 KW Document 02/03/24 09:30 KW [id number] 02/03/24 09:44 KW 01/20/24 01/27/24 02/03/24 09:08 09:08 09:30 Wound Center Nurse 1 #9 RT LAT FT -Current Size (cm) - Length 0.1 -Current Size (cm) - Width 0.1 -Current Size (cm) - Depth 0.1 -Total Square Cm 0.01 -Granulation Amt Large (67-100%) #8 Lt stump -Current Size (cm) - Length 0.5 0.4 0.7 -Current Size (cm) - Width 0.5 0.5 0.8 -Current Size (cm) - Depth 0.6 1.6 2 -Total Square Cm 0.25 0.20 0.56 -Date of Last Picture (Recall this 01/20/24 field) -Photo Taken Yes -Epithelialization Medium 34-66% -Tunneling No -Undermining/Tunneling No -Circular Undermining No -Exudate Amt Medium Small Large -Exudate Type Serosanguineous Serosanguineous Serosanguineous -Wound Margin Distinct, Distinct, Distinct, Outline Outline Outline Attached Attached Attached -Granulation Amt Medium (34-66%) Small (1-33%) Small (1-33%) -Granulation Quality Lookout,Red Red -Necrosis Amt Medium (34-66%) Large (67-100%) -Necrotic Tissue Type Adherent Slough -Texture (Michell-wound Skin Appearance) Assessed Assessed Not Assessed -Moisture (Michell-wound Skin Appearance) Assessed Assessed Assessed -Color (Michell-wound Skin Appearance) Assessed Assessed Assessed, Erythema -Temperature (Michell-wound Skin No Abnormality No Abnormality No Abnormality Appearance) (Pt Warm) (Pt Warm) (Pt Warm) -Tenderness on Palpation (Michell-wound No No Skin Appearance) -Ulcer Cleansing Soap and Water Rinsed/ Irrigated with Saline -Foul Odor after Cleansing No -Anesthetic Used 5% Lidocaine 5% Lidocaine 5% Lidocaine Gel Gel Gel #4 RT LAT ANKLE -Current Size (cm) - Length 1.2 0.9 1 -Current Size (cm) - Width 1.9 0.7 1.1 -Current Size (cm) - Depth 0.1 0.6 0.5 -Total Square Cm 2.28 0.63 1.1 -Date of Last Picture (Recall this 01/20/24 field) -Photo Taken Yes -Epithelialization Small 1-33% -Tunneling No -Undermining/Tunneling No -Circular Undermining No -Exudate Amt Small -Exudate Type Serosanguineous Serosanguineous Serosanguineous -Wound Margin Distinct, Distinct, Distinct, Outline Outline Outline Attached Attached Attached -Granulation Amt Medium (34-66%) Small (1-33%) Small (1-33%) -Granulation Quality Red Lookout,Red Lookout -Slough/Fibrin No -Necrosis Amt Large (67-100%) Large (67-100%) -Necrotic Tissue Type Adherent Slough Adherent Slough -Texture (Michell-wound Skin Appearance) Assessed Assessed, Assessed, Localized Edema Localized Edema -Moisture (Michell-wound Skin Appearance) Assessed Assessed Maceration -Color (Michell-wound Skin Appearance) Assessed Assessed, Assessed Erythema -Temperature (Michell-wound Skin No Abnormality No Abnormality No Abnormality Appearance) (Pt Warm) (Pt Warm) (Pt Warm) -Tenderness on Palpation (Michell-wound No No Skin Appearance) -Ulcer Cleansing Soap and Water Soap and Water Soap and Water -Foul Odor after Cleansing No No No -Anesthetic Used 5% Lidocaine 5% Lidocaine 5% Lidocaine Gel Gel Gel Right Calf (cm) 45 Right Ankle (cm) 26.3 WC - Nurse 2 - General Ulcer CM Notes Start: 01/20/24 09:08 Freq: Status: Active Protocol: Activity Type Activity Date Activity User E-sign Co-sign Detail Recorded Client Recorded Date Recorded By Document 01/20/24 09:39 JF 000 01/20/24 09:47 JF Edit Result 01/20/24 09:39 JF (1) 0000 01/20/24 12:07 JF Document 01/27/24 09:29 JF 0000 01/27/24 09:37 JF Document 02/03/24 10:00 [id number] 02/03/24 10:03 JF (1) #4 RT LAT ANKLE - Post Debridement (cm) - Length 0.2 => 1.2 - Total Square (Post) (cm) 0.30 => 1.80 - Area of Debridement (cm) - Length 0.2 => 1.2 - Total Square (Area) (cm) 0.30 => 1.80 01/20/24 01/27/24 02/03/24 09:39 09:29 10:00 Wound Center Nurse 2 #9 RT LAT FT -Time 09:41 -Correct Patient No -Correct Side, Site, Position No -Correct Procedure No -Procedure Performed No -Post Debridement (cm) - Length 0 -Post Debridement (cm) - Width 0 -Post Debridement (cm) - Depth 0 -Total Square (Post) (cm) 0 -Area of Debridement (cm) - Length 0 -Area of Debridement (cm) - Width 0 -Total Square (Area) (cm) 0 -Tunneling No -Undermining/Tunneling No -Circular Undermining No -Wound/Ulcer Outcome Healed- Epithelialized -Ulcer Cleansing Rinsed/ Irrigated with Saline -Foul Odor after Cleansing No -Bioengineered Tissue No -Bleeding Controlled with Pressure -Treatment Response Procedure Tolerated Well -Offloading No -Debridement - Subq, 1st 20sq cm Yes #8 Lt stump -Time 09:41 09:32 10:00 -Correct Patient Yes Yes Yes -Correct Side, Site, Position Yes Yes Yes -Correct Procedure Yes Yes Yes -Procedure Performed Yes Yes Yes -Type of Procedure Debridement Debridement Debridement -Clinical Debridement Subcutaneous Muscle / Fascia Subcutaneous -Tissue Removed Subcutaneous Muscle,Fascia Subcutaneous -Post Debridement (cm) - Length 0.7 0.3 0.7 -Post Debridement (cm) - Width 0.7 0.4 0.7 -Post Debridement (cm) - Depth 2.0 3.1 1.5 -Total Square (Post) (cm) 0.49 0.12 0.49 -Area of Debridement (cm) - Length 0.7 0.3 0.7 -Area of Debridement (cm) - Width 0.7 0.4 0.7 -Total Square (Area) (cm) 0.49 0.12 0.49 -Tunneling No No -Undermining/Tunneling No No No -Circular Undermining No No No -Wound/Ulcer Outcome Not Healed Not Healed Not Healed -Ulcer Cleansing Rinsed/ Rinsed/ Rinsed/ Irrigated with Irrigated with Irrigated with Saline Saline Saline -Foul Odor after Cleansing No No No -Bioengineered Tissue No No No -Bleeding Controlled with Pressure Pressure Pressure -Treatment Response Procedure Procedure Procedure Tolerated Well Tolerated Well Tolerated Well -Offloading No No No -Assistive Device(s) Wheelchair -Debridement - Subq, 1st 20sq cm Yes Yes -Debridement - Muscle / Fascia, 1st No 20sq cm #4 RT LAT ANKLE -Time 09:43 09:37 10:01 -Correct Patient Yes Yes Yes -Correct Side, Site, Position Yes Yes Yes -Correct Procedure Yes Yes Yes -Procedure Performed Yes Yes Yes -Type of Procedure Debridement Debridement Debridement -Clinical Debridement Muscle / Fascia Muscle / Fascia Bone -Tissue Removed Muscle,Fascia Muscle,Fascia Non-viable tissue -Post Debridement (cm) - Length 1.2 1.2 0.8 -Post Debridement (cm) - Width 1.5 1.1 1.1 -Post Debridement (cm) - Depth 0.3 0.5 0.6 -Total Square (Post) (cm) 1.80 1.32 0.88 -Area of Debridement (cm) - Length 1.2 1.2 0.8 -Area of Debridement (cm) - Width 1.5 1.1 1.1 -Total Square (Area) (cm) 1.80 1.32 0.88 -Tunneling No No No -Undermining/Tunneling No No No -Circular Undermining No No No -Wound/Ulcer Outcome Not Healed Not Healed Not Healed -Ulcer Cleansing Rinsed/ Rinsed/ Rinsed/ Irrigated with Irrigated with Irrigated with Saline Saline Saline -Foul Odor after Cleansing No No No -Bioengineered Tissue No No No -Bleeding Controlled with Pressure Pressure Pressure -Treatment Response Procedure Procedure Procedure Tolerated Well Tolerated Well Tolerated Well -Offloading No No No -Debridement - Subq, 1st 20sq cm No -Debridement - Muscle / Fascia, 1st Yes Yes 20sq cm -Debridement - Bone, 1st 20sq cm Yes Pain Scale: 0-10 Numeric Is Patient Pain Free? Yes Yes Yes - Nurse 3 - General Ulcer D/C NN Start: 01/20/24 09:08 Freq: Status: Active Protocol: Activity Type Activity Date Activity User E-sign Co-sign Detail Recorded Client Recorded Date Recorded By Document 01/20/24 10:04 GM 01/20/24 10:05 Document 01/27/24 09:29 [facility] 01/27/24 09:30 GM Edit Result 01/27/24 09:29 GM (1) 01/27/24 09:32 GM Document 01/27/24 09:43 CP 01/27/24 09:46 CP Document 02/03/24 10:38 CP [id number] 02/03/24 10:40 CP (1) #8 Lt stump - Ulcer Cleansing Not Cleansed => - Foul Odor after Cleansing No => - Primary Dressing Applied Mepilex Border, => Promogran Rafaela => Matter => - Mepilex Border 1 => - Promogran Rafaela Matter 1 => Left - Compression Wrap Armaan Wrap => 01/20/24 01/27/24 01/27/24 10:04 09:29 09:43 Wound Care Center Nurse 3 #8 Lt stump -Ulcer Cleansing Not Cleansed Not Cleansed -Foul Odor after Cleansing No No -Primary Dressing Applied Nugauze, Nugauze, Iodoform 1/2in Iodoform 1/4in -Other Dressing -Primary Dressing Covered/Secured with Dry Gauze, Secured with Tape -Nugauze, Iodoform 1/4in 1 -Nugauze, Iodoform 1/2in 1 #4 RT LAT ANKLE -Ulcer Cleansing Not Cleansed Not Cleansed -Foul Odor after Cleansing No -Primary Dressing Applied -Other Dressing -Primary Dressing Covered/Secured with Dry Gauze,Dry Dry Gauze,Dry Gauze & Roll Gauze & Roll Gauze,Secured Gauze,Secured with Tape with Tape -Promogran Rafaela Matter Left -Lotion applied to leg before No compression wrap -Tubular Bandage Double Layer Double Layer -Size of Tubigrip Used Size F Size F -Size F ($) 2 2 Right -Lotion applied to leg before No compression wrap -Tubular Bandage Double Layer Double Layer -Size of Tubigrip Used Size F Size F -Size F ($) 2 2 Treatment Response Pain Scale: 0-10 Numeric Is Patient Pain Free? Yes Yes Yes WC - Visit Discharge Discharge Condition Stable Stable Ambulatory Status Wheelchair Ambulatory Transportation Private Auto Private Auto Clinical Summary of Care Provided Yes Yes Facility Type Orders Sent 02/03/24 10:38 Wound Care Center Nurse 3 #8 Lt stump -Ulcer Cleansing Rinsed/ Irrigated with Saline -Foul Odor after Cleansing -Primary Dressing Applied -Other Dressing iodoform -Primary Dressing Covered/Secured with Dry Gauze & Roll Gauze, Secured with Tape -Nugauze, Iodoform 1/4in -Nugauze, Iodoform 1/2in #4 RT LAT ANKLE -Ulcer Cleansing Rinsed/ Irrigated with Saline -Foul Odor after Cleansing -Primary Dressing Applied Promogran Rafaela Matter -Other Dressing betadine gauze -Primary Dressing Covered/Secured with Dry Gauze & Roll Gauze, Secured with Tape -Promogran Rafaela Matter 1 Left -Lotion applied to leg before compression wrap -Tubular Bandage Double Layer -Size of Tubigrip Used Size F -Size F ($) 2 Right -Lotion applied to leg before compression wrap -Tubular Bandage Double Layer -Size of Tubigrip Used Size F -Size F ($) 2 Treatment Response Procedure Tolerated Well Pain Scale: 0-10 Numeric Is Patient Pain Free? Yes WC - Visit Discharge Discharge Condition Stable Ambulatory Status Wheelchair Transportation Clinical Summary of Care Provided Yes Facility Type [facility] Orders Sent Yes Assessment/Plan Assessment/Plan (1) Non-pressure chronic ulcer of other part of left lower leg with fat layer exposed: CODE(S): L97.822 - Non-pressure chronic ulcer of other part of left lower leg with fat layer exposed PLAN: Patient was examined and evaluated. All findings were discussed with the patient. All questions were answered to the patient's satisfaction. Excisional debridement down to including subcutaneous tissue with a number 3 mm dermal curette to the left below the knee amputation stump without incident. Predebridement measurement is 0.5 x 0.5 x 1.0 cm. Postdebridement measurement is 0.7 x 0.7 x 1.5 cm. Excisional debridement down to and including subcutaneous tissue with a number 3 mm dermal curette to the lateral right ankle without incident. Predebridement measurement was 0.7 x 1.0 x 0.4 cm. Postdebridement measurement is 0.8 x 1.1 x 0.6 cm. Bilateral lower extremities were cleaned and patted dry. Iodoform packing was applied to the left below-knee amputation full thickness wound stump followed by dry sterile dressing and compression. The right lateral ankle ulceration was dressed with moist Rafaela, Betadine soaked gauze dry sterile dressing and Tubigrip. We are pending surgery to the bilateral lower extremity. In the time being the patient will begin authorization for PVRs to the right lower extremity. Follow-up at the wound care center with Dr. Sarah in 1 week. 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
--- NOTE | 2024-02-04 09:25 | WC ---
PHOTO 01/20/24 LEFT STUMP
--- NOTE | 2024-02-04 09:28 | WC ---
PHOTO 01/20/24 RIGHT LATERAL ANKLE
--- NOTE | 2024-02-04 09:31 | WC ---
PHOTO 01/20/24 RIGHT LATERAL FOOT
[2024-02-10 09:04] VITALS: BP 148/75; PULSE 81; RESP 16; TEMP 35.7; BMI 44.4
--- NOTE | 2024-02-10 12:38 | PCM.WC.PN ---
History of Present Illness Date of Service: 02/10/24 Chief Complaint: Bilateral leg wounds. History of Wound: By leg wounds. Objective Data Objective Data Vital Signs: Vital Signs Temp Pulse Resp BP O2 Del Method 96.3 F L 81 16 148/75 H Room Air 02/10/24 09:04 02/10/24 09:04 02/10/24 09:04 02/10/24 09:04 02/10/24 09:04 Oxygen Delivery Method Room Air Weight: 161.479 kg Body Mass Index (BMI) 44.4 Lab / Micro Data Micro: Microbiology 02/03/24 09:54 Wound - Other Gram Stain - Final 02/03/24 09:54 Wound - Other Wound Culture - Final Staphylococcus aureus 02/03/24 09:54 Wound - Other Anaerobic Culture - Final No anaerobic bacteria isolated. 01/27/24 09:35 Ulcer, Decubitus - Ankle Gram Stain - Final 01/27/24 09:35 Ulcer, Decubitus - Ankle Wound Culture - Final Staphylococcus aureus 01/27/24 09:35 Ulcer, Decubitus - Ankle Anaerobic Culture - Final No anaerobic bacteria isolated. Physical Exam Narrative Vascular: DP and PT pulses are faintly palpable to the right lower extremity. CFT is brisk to the bilateral lower extremity. BKA to the left lower extremity. Evidence of erythema to the full-thickness wound to the left BKA stump. Evidence of erythema to the lateral right ankle full-thickness wound. Neurological: Light touch intact. Protective sensation is absent. Dermatological: Full-thickness wound to the left below-knee amputation stump measuring 0.4 x 0.4 x 1.5 cm. Negative probe to bone. Full-thickness wound to the lateral right ankle measuring 0.9 x 0.8 x 0.4 cm. Probe to bone, improving. Improved periwound erythema to the right ankle. Excisional debridement down to including subcutaneous tissue with a number 3 mm dermal curette to the left below the knee amputation stump without incident. Predebridement measurement is 0.3 x 0.3 x 0.4 cm. Postdebridement measurement is 0.4 x 0.4 x 0.4 cm. Excisional debridement down to and including subcutaneous tissue with a number 3 mm dermal curette to the lateral right ankle without incident. Predebridement measurement was 0.8 x 0.7 x 0.3 cm. Postdebridement measurement is 0.9 x 0.8 x 0.4 cm. Musculoskeletal: Left low knee amputation. Evidence of valgus contracture to the right ankle. Patient is nonambulatory and resides in wheelchair. No pain with calf pressure bilateral. Debridement Note Debridement Note Debridement Free Text: Excisional debridement down to including subcutaneous tissue with a number 3 mm dermal curette to the left below the knee amputation stump without incident. Predebridement measurement is 0.3 x 0.3 x 0.4 cm. Postdebridement measurement is 0.4 x 0.4 x 0.4 cm. Excisional debridement down to and including subcutaneous tissue with a number 3 mm dermal curette to the lateral right ankle without incident. Predebridement measurement was 0.8 x 0.7 x 0.3 cm. Postdebridement measurement is 0.9 x 0.8 x 0.4 cm. Post-Debridement Measurements and Additional Note: Post-Debridement Measurements/Treatment WC - Nurse 1 - General Ulcer Assessment Start: 01/20/24 09:08 Freq: Status: Active Protocol: FABIENNE Activity Type Activity Date Activity User E-sign Co-sign Detail Recorded Client Recorded Date Recorded By Document 01/20/24 09:08 wc 01/20/24 09:26 GM Document 01/27/24 09:08 KW asfd 01/27/24 09:16 KW Document 02/03/24 09:30 KW [id number] 02/03/24 09:44 KW Document 02/10/24 09:04 KW [id number] 02/10/24 09:16 KW 01/20/24 01/27/24 02/03/24 09:08 09:08 09:30 - Today's Visit Information Type of service Follow-up Visit Follow-up Visit Initial Visit (Physician/ELECTRIC SERVICEMAN (Physician/ELECTRIC SERVICEMAN ) ) Arrival Mode Wheelchair Wheelchair Wheelchair Transfer Assistance Jackelyn Lift Accompanied by caregiver nurse Patient Identification Verified (Name & Yes Yes Yes ) Height and Weight Body Mass Index (BMI) 44.4 44.4 44.4 BMI Classification Obese Obese Obese Vital Signs Temperature (97.8 F-99.1 F) 97.2 F L 97.0 F L 96.9 F L Temperature Source Temporal Temporal Temporal Pulse Rate (60-100) 96 102 H 98 Pulse Location Monitor Monitor Monitor Respiratory Rate (12-18) 18 18 18 Respiratory rate source Observation Observation Monitor Oxygen Delivery Method Room Air Room Air Room Air Blood Pressure (90/60-120/80) 123/65 H 121/66 H 130/73 H Blood Pressure Mean (mm Hg) 84 84 92 Source Monitor Monitor Monitor Position Sitting Sitting Sitting Blood Pressure Location Right Arm Right Arm Left Arm History Since Last Visit- (Skip if this is Patient's initial visit) Have you changed medications since your No No No last visit? Any new allergies or adverse reactions No No No Had a fall/change in ADL's that may No No No increase risk of falls Signs or symptoms of abuse and/or No No No neglect since last visit Have you been in the hospital since your No No No last visit? Has dressing in place as prescribed Yes Yes Yes Has compression in place as prescribed Yes Yes Yes Has offloadiing in place as prescribed Yes Yes Yes Experienced any changes in pain level or No No No management Left Footwear [place]/Foam Regular Shoe No Footwear Right Footwear Total Contact Regular Shoe No Footwear Cast Pain Scale: 0-10 Numeric Is Patient Pain Free? Yes Yes Yes 02/10/24 09:04 - Today's Visit Information Type of service Follow-up Visit (Physician/ELECTRIC SERVICEMAN ) Arrival Mode Wheelchair Transfer Assistance Accompanied by nurse Patient Identification Verified (Name & Yes ) Height and Weight Body Mass Index (BMI) 44.4 BMI Classification Obese Vital Signs Temperature (97.8 F-99.1 F) 96.3 F L Temperature Source Temporal Pulse Rate (60-100) 81 Pulse Location Monitor Respiratory Rate (12-18) 16 Respiratory rate source Observation Oxygen Delivery Method Room Air Blood Pressure (90/60-120/80) 148/75 H Blood Pressure Mean (mm Hg) 99 Source Monitor Position Sitting Blood Pressure Location Left Forearm History Since Last Visit- (Skip if this is Patient's initial visit) Have you changed medications since your No last visit? Any new allergies or adverse reactions No Had a fall/change in ADL's that may No increase risk of falls Signs or symptoms of abuse and/or No neglect since last visit Have you been in the hospital since your No last visit? Has dressing in place as prescribed Yes Has compression in place as prescribed Yes Has offloadiing in place as prescribed Yes Experienced any changes in pain level or No management Left Footwear No Footwear Right Footwear No Footwear Pain Scale: 0-10 Numeric Is Patient Pain Free? Yes WC - Nurse 1 - General Ulcer Measurement Start: 01/20/24 09:08 Freq: Status: Active Protocol: Activity Type Activity Date Activity User E-sign Co-sign Detail Recorded Client Recorded Date Recorded By Document 01/20/24 09:08 GM wc 01/20/24 09:26 GM Document 01/27/24 09:08 KW asfd 01/27/24 09:16 KW Document 02/03/24 09:30 KW [id number] 02/03/24 09:44 KW Document 02/10/24 09:04 KW [id number] 02/10/24 09:16 KW 01/20/24 01/27/24 02/03/24 09:08 09:08 09:30 Wound Center Nurse 1 #9 RT LAT FT -Current Size (cm) - Length 0.1 -Current Size (cm) - Width 0.1 -Current Size (cm) - Depth 0.1 -Total Square Cm 0.01 -Granulation Amt Large (67-100%) #8 Lt stump -Current Size (cm) - Length 0.5 0.4 0.7 -Current Size (cm) - Width 0.5 0.5 0.8 -Current Size (cm) - Depth 0.6 1.6 2 -Total Square Cm 0.25 0.20 0.56 -Date of Last Picture (Recall this 01/20/24 field) -Photo Taken Yes -Epithelialization Medium 34-66% -Tunneling No -Undermining/Tunneling No -Circular Undermining No -Exudate Amt Medium Small Large -Exudate Type Serosanguineous Serosanguineous Serosanguineous -Wound Margin Distinct, Distinct, Distinct, Outline Outline Outline Attached Attached Attached -Granulation Amt Medium (34-66%) Small (1-33%) Small (1-33%) -Granulation Quality Waterproof,Red Red -Necrosis Amt Medium (34-66%) Large (67-100%) -Necrotic Tissue Type Adherent Slough -Texture (Michell-wound Skin Appearance) Assessed Assessed Not Assessed -Moisture (Michell-wound Skin Appearance) Assessed Assessed Assessed -Color (Michell-wound Skin Appearance) Assessed Assessed Assessed, Erythema -Temperature (Michell-wound Skin No Abnormality No Abnormality No Abnormality Appearance) (Pt Warm) (Pt Warm) (Pt Warm) -Tenderness on Palpation (Michell-wound No No Skin Appearance) -Ulcer Cleansing Soap and Water Rinsed/ Irrigated with Saline -Foul Odor after Cleansing No -Anesthetic Used 5% Lidocaine 5% Lidocaine 5% Lidocaine Gel Gel Gel #4 RT LAT ANKLE -Current Size (cm) - Length 1.2 0.9 1 -Current Size (cm) - Width 1.9 0.7 1.1 -Current Size (cm) - Depth 0.1 0.6 0.5 -Total Square Cm 2.28 0.63 1.1 -Date of Last Picture (Recall this 01/20/24 field) -Photo Taken Yes -Epithelialization Small 1-33% -Tunneling No -Undermining/Tunneling No -Circular Undermining No -Exudate Amt Small -Exudate Type Serosanguineous Serosanguineous Serosanguineous -Wound Margin Distinct, Distinct, Distinct, Outline Outline Outline Attached Attached Attached -Granulation Amt Medium (34-66%) Small (1-33%) Small (1-33%) -Granulation Quality Red Waterproof,Red Waterproof -Slough/Fibrin No -Necrosis Amt Large (67-100%) Large (67-100%) -Necrotic Tissue Type Adherent Slough Adherent Slough -Texture (Michell-wound Skin Appearance) Assessed Assessed, Assessed, Localized Edema Localized Edema -Moisture (Michell-wound Skin Appearance) Assessed Assessed Maceration -Color (Michell-wound Skin Appearance) Assessed Assessed, Assessed Erythema -Temperature (Michell-wound Skin No Abnormality No Abnormality No Abnormality Appearance) (Pt Warm) (Pt Warm) (Pt Warm) -Tenderness on Palpation (Michell-wound No No Skin Appearance) -Ulcer Cleansing Soap and Water Soap and Water Soap and Water -Foul Odor after Cleansing No No No -Anesthetic Used 5% Lidocaine 5% Lidocaine 5% Lidocaine Gel Gel Gel Right Calf (cm) 45 Right Ankle (cm) 26.3 02/10/24 09:04 Wound Center Nurse 1 #9 RT LAT FT -Current Size (cm) - Length -Current Size (cm) - Width -Current Size (cm) - Depth -Total Square Cm -Granulation Amt #8 Lt stump -Current Size (cm) - Length 0.5 -Current Size (cm) - Width 0.7 -Current Size (cm) - Depth 1.4 -Total Square Cm 0.35 -Date of Last Picture (Recall this field) -Photo Taken -Epithelialization -Tunneling -Undermining/Tunneling -Circular Undermining -Exudate Amt Medium -Exudate Type Serosanguineous -Wound Margin Distinct, Outline Attached -Granulation Amt Large (67-100%) -Granulation Quality Waterproof -Necrosis Amt Small (1-33%) -Necrotic Tissue Type Adherent Slough -Texture (Michell-wound Skin Appearance) Assessed -Moisture (Michell-wound Skin Appearance) Assessed -Color (Michell-wound Skin Appearance) Assessed -Temperature (Michell-wound Skin No Abnormality Appearance) (Pt Warm) -Tenderness on Palpation (Michell-wound No Skin Appearance) -Ulcer Cleansing Soap and Water -Foul Odor after Cleansing No -Anesthetic Used 5% Lidocaine Gel #4 RT LAT ANKLE -Current Size (cm) - Length 1.1 -Current Size (cm) - Width 1 -Current Size (cm) - Depth 0.5 -Total Square Cm 1.1 -Date of Last Picture (Recall this field) -Photo Taken -Epithelialization -Tunneling -Undermining/Tunneling -Circular Undermining -Exudate Amt -Exudate Type -Wound Margin -Granulation Amt Small (1-33%) -Granulation Quality Waterproof -Slough/Fibrin -Necrosis Amt Large (67-100%) -Necrotic Tissue Type Adherent Slough -Texture (Michell-wound Skin Appearance) Not Assessed -Moisture (Michell-wound Skin Appearance) Assessed -Color (Michell-wound Skin Appearance) Assessed -Temperature (Michell-wound Skin No Abnormality Appearance) (Pt Warm) -Tenderness on Palpation (Michell-wound No Skin Appearance) -Ulcer Cleansing Soap and Water -Foul Odor after Cleansing No -Anesthetic Used 5% Lidocaine Gel Right Calf (cm) Right Ankle (cm) WC - Nurse 2 - General Ulcer CM Notes Start: 01/20/24 09:08 Freq: Status: Active Protocol: Activity Type Activity Date Activity User E-sign Co-sign Detail Recorded Client Recorded Date Recorded By Document 01/20/24 09:39 JF 000 01/20/24 09:47 JF Edit Result 01/20/24 09:39 JF (1) 0000 01/20/24 12:07 JF Document 01/27/24 09:29 JF 0000 01/27/24 09:37 JF Document 02/03/24 10:00 JF [id number] 02/03/24 10:03 JF Document 02/10/24 09:51 JF [id number] 02/10/24 09:55 JF (1) #4 RT LAT ANKLE - Post Debridement (cm) - Length 0.2 => 1.2 - Total Square (Post) (cm) 0.30 => 1.80 - Area of Debridement (cm) - Length 0.2 => 1.2 - Total Square (Area) (cm) 0.30 => 1.80 01/20/24 01/27/24 02/03/24 09:39 09:29 10:00 Wound Center Nurse 2 #9 RT LAT FT -Time : -Correct Patient No -Correct Side, Site, Position No -Correct Procedure No -Procedure Performed No -Post Debridement (cm) - Length 0 -Post Debridement (cm) - Width 0 -Post Debridement (cm) - Depth 0 -Total Square (Post) (cm) 0 -Area of Debridement (cm) - Length 0 -Area of Debridement (cm) - Width 0 -Total Square (Area) (cm) 0 -Tunneling No -Undermining/Tunneling No -Circular Undermining No -Wound/Ulcer Outcome Healed- Epithelialized -Ulcer Cleansing Rinsed/ Irrigated with Saline -Foul Odor after Cleansing No -Bioengineered Tissue No -Bleeding Controlled with Pressure -Treatment Response Procedure Tolerated Well -Offloading No -Debridement - Subq, 1st 20sq cm Yes #8 Lt stump -Time : 09:32 10:00 -Correct Patient Yes Yes Yes -Correct Side, Site, Position Yes Yes Yes -Correct Procedure Yes Yes Yes -Procedure Performed Yes Yes Yes -Type of Procedure Debridement Debridement Debridement -Clinical Debridement Subcutaneous Muscle / Fascia Subcutaneous -Tissue Removed Subcutaneous Muscle,Fascia Subcutaneous -Post Debridement (cm) - Length 0.7 0.3 0.7 -Post Debridement (cm) - Width 0.7 0.4 0.7 -Post Debridement (cm) - Depth 2.0 3.1 1.5 -Total Square (Post) (cm) 0.49 0.12 0.49 -Area of Debridement (cm) - Length 0.7 0.3 0.7 -Area of Debridement (cm) - Width 0.7 0.4 0.7 -Total Square (Area) (cm) 0.49 0.12 0.49 -Tunneling No No -Undermining/Tunneling No No No -Circular Undermining No No No -Wound/Ulcer Outcome Not Healed Not Healed Not Healed -Ulcer Cleansing Rinsed/ Rinsed/ Rinsed/ Irrigated with Irrigated with Irrigated with Saline Saline Saline -Foul Odor after Cleansing No No No -Bioengineered Tissue No No No -Bleeding Controlled with Pressure Pressure Pressure -Treatment Response Procedure Procedure Procedure Tolerated Well Tolerated Well Tolerated Well -Offloading No No No -Assistive Device(s) Wheelchair -Debridement - Subq, 1st 20sq cm Yes Yes -Debridement - Muscle / Fascia, 1st No 20sq cm #4 RT LAT ANKLE -Time 09:43 09:37 10:01 -Correct Patient Yes Yes Yes -Correct Side, Site, Position Yes Yes Yes -Correct Procedure Yes Yes Yes -Procedure Performed Yes Yes Yes -Type of Procedure Debridement Debridement Debridement -Clinical Debridement Muscle / Fascia Muscle / Fascia Bone -Tissue Removed Muscle,Fascia Muscle,Fascia Non-viable tissue -Post Debridement (cm) - Length 1.2 1.2 0.8 -Post Debridement (cm) - Width 1.5 1.1 1.1 -Post Debridement (cm) - Depth 0.3 0.5 0.6 -Total Square (Post) (cm) 1.80 1.32 0.88 -Area of Debridement (cm) - Length 1.2 1.2 0.8 -Area of Debridement (cm) - Width 1.5 1.1 1.1 -Total Square (Area) (cm) 1.80 1.32 0.88 -Tunneling No No No -Undermining/Tunneling No No No -Circular Undermining No No No -Wound/Ulcer Outcome Not Healed Not Healed Not Healed -Ulcer Cleansing Rinsed/ Rinsed/ Rinsed/ Irrigated with Irrigated with Irrigated with Saline Saline Saline -Foul Odor after Cleansing No No No -Bioengineered Tissue No No No -Bleeding Controlled with Pressure Pressure Pressure -Treatment Response Procedure Procedure Procedure Tolerated Well Tolerated Well Tolerated Well -Offloading No No No -Debridement - Subq, 1st 20sq cm No -Debridement - Muscle / Fascia, 1st Yes Yes 20sq cm -Debridement - Bone, 1st 20sq cm Yes Pain Scale: 0-10 Numeric Is Patient Pain Free? Yes Yes Yes 02/10/24 09:51 Wound Center Nurse 2 #9 RT LAT FT -Time -Correct Patient -Correct Side, Site, Position -Correct Procedure -Procedure Performed -Post Debridement (cm) - Length -Post Debridement (cm) - Width -Post Debridement (cm) - Depth -Total Square (Post) (cm) -Area of Debridement (cm) - Length -Area of Debridement (cm) - Width -Total Square (Area) (cm) -Tunneling -Undermining/Tunneling -Circular Undermining -Wound/Ulcer Outcome -Ulcer Cleansing -Foul Odor after Cleansing -Bioengineered Tissue -Bleeding Controlled with -Treatment Response -Offloading -Debridement - Subq, 1st 20sq cm #8 Lt stump -Time 09:52 -Correct Patient Yes -Correct Side, Site, Position Yes -Correct Procedure Yes -Procedure Performed Yes -Type of Procedure Debridement -Clinical Debridement Muscle / Fascia -Tissue Removed Muscle,Fascia -Post Debridement (cm) - Length 0.4 -Post Debridement (cm) - Width 0.4 -Post Debridement (cm) - Depth 1.5 -Total Square (Post) (cm) 0.16 -Area of Debridement (cm) - Length 0.4 -Area of Debridement (cm) - Width 0.4 -Total Square (Area) (cm) 0.16 -Tunneling No -Undermining/Tunneling No -Circular Undermining No -Wound/Ulcer Outcome Not Healed -Ulcer Cleansing Rinsed/ Irrigated with Saline -Foul Odor after Cleansing No -Bioengineered Tissue No -Bleeding Controlled with Pressure -Treatment Response Procedure Tolerated Well -Offloading No -Assistive Device(s) -Debridement - Subq, 1st 20sq cm -Debridement - Muscle / Fascia, 1st Yes 20sq cm #4 RT LAT ANKLE -Time 09:53 -Correct Patient Yes -Correct Side, Site, Position Yes -Correct Procedure Yes -Procedure Performed Yes -Type of Procedure Debridement -Clinical Debridement Subcutaneous -Tissue Removed Subcutaneous -Post Debridement (cm) - Length 0.9 -Post Debridement (cm) - Width 0.8 -Post Debridement (cm) - Depth 0.4 -Total Square (Post) (cm) 0.72 -Area of Debridement (cm) - Length 0.9 -Area of Debridement (cm) - Width 0.8 -Total Square (Area) (cm) 0.72 -Tunneling No -Undermining/Tunneling No -Circular Undermining No -Wound/Ulcer Outcome Not Healed -Ulcer Cleansing Rinsed/ Irrigated with Saline -Foul Odor after Cleansing No -Bioengineered Tissue No -Bleeding Controlled with Pressure -Treatment Response Procedure Tolerated Well -Offloading No -Debridement - Subq, 1st 20sq cm Yes -Debridement - Muscle / Fascia, 1st 20sq cm -Debridement - Bone, 1st 20sq cm Pain Scale: 0-10 Numeric Is Patient Pain Free? Yes - Nurse 3 - General Ulcer D/C NN Start: 01/20/24 09:08 Freq: Status: Active Protocol: Activity Type Activity Date Activity User E-sign Co-sign Detail Recorded Client Recorded Date Recorded By Document 01/20/24 10:04 GM 01/20/24 10:05 GM Document 01/27/24 09:29 GM 01/27/24 09:30 GM Edit Result 01/27/24 09:29 GM (1) 01/27/24 09:32 GM Document 01/27/24 09:43 CP 01/27/24 09:46 CP Document 02/03/24 10:38 CP [id number] 02/03/24 10:40 CP (1) #8 Lt stump - Ulcer Cleansing Not Cleansed => - Foul Odor after Cleansing No => - Primary Dressing Applied Mepilex Border, => Promogran Rafaela => Matter => - Mepilex Border 1 => - Promogran Rafaela Matter 1 => Left - Compression Wrap Armaan Wrap => 01/20/24 01/27/24 01/27/24 10:04 09:29 09:43 Wound Care Center Nurse 3 #8 Lt stump -Ulcer Cleansing Not Cleansed Not Cleansed -Foul Odor after Cleansing No No -Primary Dressing Applied Nugauze, Nugauze, Iodoform 1/2in Iodoform 1/4in -Other Dressing -Primary Dressing Covered/Secured with Dry Gauze, Secured with Tape -Nugauze, Iodoform 1/4in 1 -Nugauze, Iodoform 1/2in 1 #4 RT LAT ANKLE -Ulcer Cleansing Not Cleansed Not Cleansed -Foul Odor after Cleansing No -Primary Dressing Applied -Other Dressing -Primary Dressing Covered/Secured with Dry Gauze,Dry Dry Gauze,Dry Gauze & Roll Gauze & Roll Gauze,Secured Gauze,Secured with Tape with Tape -Promogran Rafaela Matter Left -Lotion applied to leg before No compression wrap -Tubular Bandage Double Layer Double Layer -Size of Tubigrip Used Size F Size F -Size F ($) 2 2 Right -Lotion applied to leg before No compression wrap -Tubular Bandage Double Layer Double Layer -Size of Tubigrip Used Size F Size F -Size F ($) 2 2 Treatment Response Pain Scale: 0-10 Numeric Is Patient Pain Free? Yes Yes Yes WC - Visit Discharge Discharge Condition Stable Stable Ambulatory Status Wheelchair Ambulatory Transportation Private Auto Private Auto Clinical Summary of Care Provided Yes Yes Facility Type Orders Sent 02/03/24 10:38 Wound Care Center Nurse 3 #8 Lt stump -Ulcer Cleansing Rinsed/ Irrigated with Saline -Foul Odor after Cleansing -Primary Dressing Applied -Other Dressing iodoform -Primary Dressing Covered/Secured with Dry Gauze & Roll Gauze, Secured with Tape -Nugauze, Iodoform 1/4in -Nugauze, Iodoform 1/2in #4 RT LAT ANKLE -Ulcer Cleansing Rinsed/ Irrigated with Saline -Foul Odor after Cleansing -Primary Dressing Applied Promogran Rafaela Matter -Other Dressing betadine gauze -Primary Dressing Covered/Secured with Dry Gauze & Roll Gauze, Secured with Tape -Promogran Rafaela Matter 1 Left -Lotion applied to leg before compression wrap -Tubular Bandage Double Layer -Size of Tubigrip Used Size F -Size F ($) 2 Right -Lotion applied to leg before compression wrap -Tubular Bandage Double Layer -Size of Tubigrip Used Size F -Size F ($) 2 Treatment Response Procedure Tolerated Well Pain Scale: 0-10 Numeric Is Patient Pain Free? Yes WC - Visit Discharge Discharge Condition Stable Ambulatory Status Wheelchair Transportation Clinical Summary of Care Provided Yes Facility Type Rn Med Surg Care Facility Orders Sent Yes Assessment/Plan Assessment/Plan (1) Non-pressure chronic ulcer of other part of left lower leg with fat layer exposed: CODE(S): L97.822 - Non-pressure chronic ulcer of other part of left lower leg with fat layer exposed PLAN: Patient was examined and evaluated. All findings were discussed with the patient. All questions were answered to the patient's satisfaction. Excisional debridement down to including subcutaneous tissue with a number 3 mm dermal curette to the left below the knee amputation stump without incident. Predebridement measurement is 0.3 x 0.3 x 0.4 cm. Postdebridement measurement is 0.4 x 0.4 x 0.4 cm. Excisional debridement down to and including subcutaneous tissue with a number 3 mm dermal curette to the lateral right ankle without incident. Predebridement measurement was 0.8 x 0.7 x 0.3 cm. Postdebridement measurement is 0.9 x 0.8 x 0.4 cm. Bilateral lower extremities were cleaned and patted dry. Iodoform packing was applied to the left below-knee amputation full thickness wound stump followed by dry sterile dressing and compression. The right lateral ankle ulceration was dressed with moist Rafaela, Betadine soaked gauze dry sterile dressing and Tubigrip. Chart reviewed and consent signed for elective bilateral surgery to the lower extremities. Patient stands all risk and benefits. Patient is agreeable to move forward with surgery. Review of the patient's cultures show evidence of Staph aureus. Patient will be placed on doxycycline 100 mg twice daily for 2 weeks. Follow-up at the wound care center with Dr. Sarah in 1 week. 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
== END 2024-02-13 23:59 | disposition home or self-care (01) ==
LOC: WC 09:15
PROVIDERS: PCP Internal Medicine Infectious Disease; Referring Provider Internal Medicine Infectious Disease; Visit Provider Podiatrist Foot & Ankle Surgery
DX: E11.622 Type 2 diabetes mellitus with other skin ulcer (principal); L97.314 Non-pressure chronic ulcer of right ankle with necrosis of bone; L97.512 Non-pressure chronic ulcer of other part of right foot with fat layer exposed; T87.89 Other complications of amputation stump; E11.42 Type 2 diabetes mellitus with diabetic polyneuropathy; E11.51 Type 2 diabetes mellitus with diabetic peripheral angiopathy without gangrene; Y83.5 Amputation of limb(s) as the cause of abnormal reaction of the patient, or of later complication, without mention of misadventure at the time of the procedure
CPT/HCPCS: 11042; 11043; 11044; 87070; 87075; 87077; 87186; 87205

== ENCOUNTER 2024-02-17 06:01 | Day surgery (SDC) | payer MEDICARE, MEDICAID, SELFPAY ==
[2024-02-17] VITALS (10 sets, daily range): BP systolic 106–150; BP diastolic 70–84; PULSE 61–84; RESP 14–20; TEMP 36.2–36.5; O2SAT 92–97; BMI 45.6
--- NOTE | 2024-02-17 | BON_PTH ---
PATIENT: AMRITA SWAN LOC: [facility] [place] U#:[id number] AGE/SX: 78/M ROOM: RE02/17/[address]: Dr. Christopher Sarah DPM : 1945 BED: DIS: 02/17/2024 SPEC #: [id number] RECD: 02/17/24 10:44 STATUS: CALLI REAlberta #: [id number] ALVARO: 02/17/24 00:[address]: Christopher Sarah DEPT: SURGICAL PATHOLOGY RECD BY: Rodney Sosa ENTERED: 02/17/24 10:45 SP TYPE: Bone OTHR DR: Dr. Meeta Ryan MD Tissues: Ankle, NOS Procedures: Decalcification bone/plaque Surgery Specimen Level IV HEADER OPERATION: Left below the knee amputation stump inclusion and drainage PRE-OP DIAGNOSIS: Severe peripheral vascular disease with recurrent non-healing wound TISSUE SUBMITTED: Incision bone cortex right ankle MICROSCOPIC DIAGNOSIS Incision bone cortex right ankle, biopsy: Pieces of bone with reactive changes and negative for acute osteomyelitis. SJ: 02/19/2024 MICROSCOPIC DESCRIPTION Slides are reviewed. GROSS DESCRIPTION Received in fixative is one container labeled with the patient's name and designated Incision bone cortex right ankle. The specimen consists of two pieces of bone measuring 0.3 and 0.8cm in length and 0.1cm in diameter. The entire specimen is submitted in one cassette after decalcification. 02/17/2024 TC:5 CPT:06271,82194
--- NOTE | 2024-02-17 06:30 | RAD_ITS ---
STUDY: X-RAY - RIGHT ANKLE REASON FOR EXAM: Male, 78 years old. INCISION OF BONE CORTEX WITH SKIN GRAFT PREP TECHNIQUE: 3 fluoroscopic C-arm spot images of the right ankle. COMPARISON: None. FINDINGS: There is a needle guide tube with tip extending into the distal fibula. There is medial angulation/inversion of the foot at the level of the subtalar joint. Normal tibiotalar articulation and ankle mortise. Normal visualized talus. RAD/Ankle 2 Views IMPRESSION: Needle guide tube with tip extending into the distal fibula. Electronically Signed: Reza Goldman MD at 8:41 EDT ,
[2024-02-17] MEDS: Lactated Ringers 1,000 ML 15 ML IV (07:03)
--- NOTE | 2024-02-17 07:19 | EKG12_ITS ---
Test Reason : PRE OP Blood Pressure : / mmHG Vent. Rate : 072 BPM Atrial Rate : 072 BPM P-R Int : 196 ms QRS Dur : 084 ms QT Int : 366 ms P-R-T Axes : 035 033 019 degrees QTc Int : 400 ms Normal sinus rhythm Normal ECG No previous ECGs available Confirmed by HAILEE DAVENPORT, POLINA ([id number]), online editor PORFIRIO BLACKMON ([id number]) on 02/23/2024 6:22:41 AM Referred By: Christopher Sarah Confirmed By:POLINA STEPHEN MD
--- NOTE | 2024-02-17 07:20 | PCM.OPRPT ---
Problems Associated Problem List Diagnoses (1) Non-pressure chronic ulcer of other part of left lower leg with fat layer exposed: (2) Other specified peripheral vascular diseases: (3) Chronic painful diabetic polyneuropathy: (4) Non-pressure chronic ulcer of right ankle with necrosis of muscle: Report of Operation Date of Procedure: 02/17/24 Pre-Operative Diagnosis: 1. Full-thickness wound with exposed subcutaneous tissue, left leg 2. Full-thickness wound with exposed muscle, right ankle 3. Peripheral vascular disease 4. Diabetes mellitus type 2 with peripheral neuropathy Post-Operative Diagnosis: Same as preoperative diagnosis Surgery/Procedure Performed:: Right lower extremity: 1. Incision bone cortex, right lower extremity 2. Surgical skin graft site prep, right lower extremity 3. Application of skin graft substitute, right lower extremity Left lower extremity: 4. Incision and drainage, left lower extremity 5. Application of antibiotic beads, left lower extremity 6. Delayed primary closure, left lower extremity Description of Surgical Findings:: 1. Evidence of space appreciated to the left lower extremity BKA stump after incision and drainage. 2. Hard cortical bone appreciated to the distal fibula with incision of bone cortex procedure. 3. Successful closure of the open wound to the left below-knee amputation stump. Surgeon: Christopher Sarah customer pricing manager: Marielle Ponce Type of Anesthesia: General Anesthesiologist: Arthur Pierre Special Medications: Antibiotic beads, vancomycin 1 g, left lower extremity Specimen's removed: 1. Incision bone cortex, right ankle Drains: None Estimated Blood Loss (mL): 35 mL Fluids Replaced: Per anesthesia Description of Procedure: Indications For Operation: Mr. Olivares is a 78-year-old diabetic male who was admitted to [facility] for bilateral lower extremity surgery secondary to chronic ulceration to the bilateral lower extremity. Patient is well-known to my practice and has been seen for outpatient excisional debridement and graft application to the right lower extremity. 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 Patient has failed 2 rounds of outpatient oral antibiotics. Due to the nature of the chronicity of the left distal below the knee amputation ulceration as well as the chronic nonhealing right ankle ulceration it has been deemed necessary at this time to take the patient into the operating room to perform the above procedure to help heal his chronic wounds and prevent further infection. Patient underwent surgical consultation with chart review and consent signed. The nature of the problem, anticipated procedures, postop recovery/convalences and risk/complications include but not limited to infection, wound healing complications, digital amputation, hypertrophic scarring, numbness, tingling, chronic pain, CRPS, over and under correction, recurrence of deformity, DVT and or PE and the need for further surgery have been discussed in great detail with the patient. All questions have been answered to the patient's satisfaction. There are no guarantees given as to the outcome of the procedure. Description of Procedure: Under mild sedation, the patient was brought into the operating room and placed on the operating table in supine position. Once the patient was under general anesthesia with endotracheal tube, no local anesthesia was used secondary to patient's neuropathy. No tourniquet was used for this case bilaterally. Next, the right and left lower extremity was prepped and draped in normal aseptic manner. Next, a timeout was then undertaken verifying the correct patient, extremity, visibility of preoperative markings, availability of the equipment. Right lower extremity: 1. Incision bone cortex, right lower extremity Next, attention was directed to the right lower extremity at the level of the full-thickness ulceration. Using a rongeur, excisional debridement down to and including subcutaneous tissue, fascia, muscle and bone was carried out without incident. All necrotic tissue was removed and passed the back tissue to be discarded. Next using a Jamshidi needle, incision of bone cortex was carried out at 2 locations of the distal fibula which were passed the back table for have to be sent off for microbiology culture and sensitivity and the other half to be sent for pathology for gross diagnosis. The full-thickness ulceration to the lateral right ankle was flushed with copious rivera normal saline. 2. Surgical skin graft site prep, right lower extremity Next, surgical skin graft site prep was carried out with [employer] ultrasonic debrider. After debridement was completed there showed evidence of healthy granular tissue with sanguinous drainage. Again the full-thickness ulceration to the right lateral ankle was flushed with copious rivera of normal saline. 3. Application of skin graft substitute, right lower extremity Next, a slurry of 250 mg axial fill was prepared on the back table. Once the consistency was noted the amniotic skin graft substitute was applied to the full-thickness ulceration to right lateral ankle. Compression was used with a clean Ray-Dalton to remove excess fluid. The right lower extremity was wiped clean and patted dry. Adaptic followed by bolster dressing and a single layer Landis compression bandage was donned to the right lower extremity. Left lower extremity: 4. Incision and drainage, left lower extremity Next, sterile skin marker was used to lavonne across the full-thickness ulceration that showed evidence of tunneling in the 2:00 and 9:00 direction. Using a #15 blade a full-thickness incision down to subcutaneous tissue was performed without incident. Continued blunt dissection was carried down with Metzenbaum scissors and dilation of all space was noted. There showed evidence of no purulent drainage but evidence of hematoma in the 2 tunneling locations. All hematoma was evacuated via suction as well as with Bazari ultrasonic debrider down to and including subcutaneous tissue. Once debridement was finished, the remaining tissue showed to be 100% granular in nature with no evidence of necrosis. Full-thickness wound/incision was flushed with copious rivera of normal saline. 5. Application of antibiotic beads, left lower extremity Next, [employer] OsteoSet antibiotic beads were pared on the back table with 1 g of vancomycin per the riveting machine operator automatic's recommendation. Once the antibiotic beads were allowed to cure, the antibiotic beads were applied to the 2 locations of space and the remaining full-thickness ulceration to left lower extremity below-knee amputation site. 6. Delayed primary closure, left lower extremity Next, using a rongeur the full-thickness wound was remodeled removing all necrotic skin edges. the deep layer was closed via delayed primary closure and reapproximated and closed using a 2-0 Vicryl in buried suture technique. The subcutaneous layer was reapproximated and closed with 3-0 Monocryl in buried suture technique. The skin was reapproximated and closed using rashi and 2-0 nylon vertical mattress sutures. Left lower extremities were cleaned and patted dry. The incision was dressed with Betadine soaked Adaptic, dry sterile dressing and single-layer Landis compression bandage was donned. The patient tolerated the procedure and anesthesia well and apparent satisfactory condition and was transported to the PACU for further monitoring prior to discharge back to the SNF. Vital signs stable and vascular status intact to all digits bilateral. Post Operative Plan: Weightbearing: Patient may use the right lower extremity heel to transfer. No weightbearing to left lower extremity below-knee amputation site. Antibiotics: 3 g Ancef through the IV DVT Prophylaxis: Eliquis Elias: None Dressing: Right: Adaptic, Steri-Strips, bolster dressing, single layer Landis compression bandage./Left: Betadine soaked Adaptic, dry sterile dressing, single layer Landis compression bandage. X-Rays: Post-operative films taken on the operating room. Pain Medication: Percocet 5/ Follow-up: Patient will follow-up with Dr. Sarah at the wound care center next Thursday. Please call for appointment time. Grafts/Implants Used: 250 mg Axiofill Complications none Admit VTE Documentation VTE Present on Admission: No VTE Mechan Device Prophylaxis: SCD's VTE Pharm Prophylaxis ordered?: Yes
[2024-02-17] MEDS: Cefazolin 3 GM in 0.9% Normal Saline (100mL Bag) 100 ML IV (07:34)
[2024-02-17] MEDS: Vancomycin IV 1,000 MG/20 ML Vial 1000 MG OPERA.SITE (08:28)
[2024-02-17 08:50] LABS: Bedside Glucose 104 mg/dL (74-106)
--- NOTE | 2024-02-17 08:52 | PCM.POST.ANE ---
Anesthesia: Postop Eval I Current Vital Signs Temperature: 97.1 F Pulse Rate: 77 Blood Pressure: 135/76 Respiratory Rate: 20 Pulse Ox: 97 Oxygen Delivery Method: Simple Mask Oxygen Flow Rate (L/min): 6 Assessment Airway patent: Yes Spontaneous unlabored respirations: Yes Mental status: Awake (EASILY AROUSABLE) and Calm nausea: No Vomiting: No Anesthesia Complication: No Fluid Hydration Crystalloid volume administer (ml): 500 Total IV fluid infused: 500 Progress Note Anesthesia document: Postop Eval 1 completed: Yes
--- NOTE | 2024-02-17 09:23 | PCM.PRE.AN2 ---
ASA Classification* ASA Classification ASA Classification: 3 Assessment & Plan Anesthesia* Anesthesia Assessment Anesthesia Assessment: Discussed sedation and/or anesthesia options, risks, benefits, and alternatives with patient/parents/legal guardian/POA. Questions invited. The patient/parents/legal guardian/POA seems to understand and agrees to proceed with anesthesia plan. Reviewed the physical assessment, medical history, allergy history and patient home medications list prior to surgery/procedure/anesthetic and documented any changes. Performed airway and anesthesia risk assessments. Anesthesia Type Anesthesia Type: General (see written pre anesthesia record for full assessment) Anesthesia Focused Assessment* Temperature: 97.1 F Pulse Rate: 79 Blood Pressure: 106/83 Respiratory Rate: 16 Pulse Ox: 92 Airway Assessment Mouth opens: >3 cm Mallampati Score: II Focused Labs Anesthesia Preop lab: CBC WBC 9.6 K/mm3 (4.4-11.0) 10/21/23 11:05 RBC 4.91 M/mm3 (4.6-6.2) 10/21/23 11:05 Hgb 12.6 g/dL (13.0-16.5) L 10/21/23 11:05 Hct 40.5 % (40-54) 10/21/23 11:05 Plt Count 297 K/mm3 (150-450) 10/21/23 11:05 CHEMISTRY Potassium 4.1 mmol/L (3.5-5.1) 10/21/23 11:05 Sodium 137 mmol/L (136-145) 10/21/23 11:05 BUN 23 mg/dL (7-18) H 10/21/23 11:05 Creatinine 1.29 mg/dL (0.70-1.30) 10/21/23 11:05 Glucose 117 mg/dL (74-106) H 10/21/23 11:05 POC Glucose 104 mg/dL (74-106) 02/17/24 06:42 COAG Pre-Assessment Diagnosis/Proposed Procedure Planned Operative Procedure(s): LEFT FOOT INCISION AND DRAINAGE WITH APPLICATION OF ANTIBIOTIC BEADS AND DELAYED PRIMARY CLOSURE, RIGHT FOOT INCISION OF BONE CORTEX WITH SURGICAL SKIN GRAFT SITE PREP AND APPLICATION OF SKIN GRAFT SUBSTITUTE Anesthesia History Anesthesia History - bilingual spanish inbound sales: Anesthesia History - bilingual spanish inbound sales Hx Hospitalization Yes: 10/21/23 WOUND 02/16/24 15:55 Any Problems With Anesthesia No 02/16/24 15:55 Cholinesterase deficiency No 02/16/24 15:55 You/Your Family Experience No 02/16/24 15:55 fever (hyperthermia) with Relationship Recent Exposure to Contagious No 02/17/24 06:46 Disease Does patient have nerve No 02/16/24 15:55 stimulator Patient instructed to have device shut off --Does patient have Pacemaker No 02/17/24 06:46 or ICD? When Was Last Pacemaker Check QUESTION #4 FULL TEXT: You/Your Family Experience fever (hyperthermia) with Anesthesia Last Oral Intake Last Oral intake: Last Oral Intake NPO since 18:00 02/17/24 06:46 Meds taken in AM with sips of water? Meds patient instructed to take am of surgery PONV PONV - bilingual spanish inbound sales: PONV - bilingual spanish inbound sales Female No 02/16/24 15:55 HX of Motion Sickness No 02/16/24 15:55 HX of N/V After Surgery No 02/16/24 15:55 Non-Smoker Yes 02/16/24 15:55 Duration of Surgery greater Yes 02/16/24 15:55 than 60 minutes Number of Risk Factors 2 02/16/24 15:55 PONV Score Moderate Risk 02/16/24 15:55 Height & Weight Height & Weight: Anesthesia: Height & Weight Height 6 ft 3 in 02/17/24 06:46 Weight: 165.561 kg 02/17/24 06:46 Body Mass Index (BMI) 45.6 02/17/24 06:46 Respiratory Assessment Respiratory Assessment - bilingual spanish inbound sales: Respiratory Tract Infection Hx - bilingual spanish inbound sales Hx Respiratory Tract Infection No 02/16/24 15:55 STOP Sleep Apnea STOP Sleep Apnea - bilingual spanish inbound sales: STOP Sleep Apnea - bilingual spanish inbound sales Hx Hypertension Yes 02/16/24 15:55 Hx Sleep Apnea No 02/16/24 15:55 CPAP BIPAP Do you snore loudly (louder Yes 02/16/24 15:55 than talking or can be heard Do you often feel tired/ Yes 02/16/24 15:55 fatigued/ sleepy during daytime? Has anyone observed you stop No 02/16/24 15:55 breathing during sleep? STOP Results Positive 02/17/24 08:45 QUESTION #5 FULL TEXT : Do you snore loudly (louder than talking or can be heard through closed doors)? 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 Specify any problems Hx of Preganancy in last 3 N/A 02/16/24 15:55 Months Nurse Filling Out Transfusion NBUCHER 02/16/24 15:55 & Questions: Date: 02/16/24 02/16/24 15:55 Time: 16:00 02/16/24 15:55 Patient unable to answer at this time (ie. confused, unrespo /Reproduction History /Reproductive History - bilingual spanish inbound sales: /Reproductive Hx- bilingual spanish inbound sales Hx Now No 02/16/24 15:55 Gestational Age (in weeks): EDC: Hx Hx Para Hx Section SAB No 02/16/24 15:55 Active Medications Active Medications: Current Medications Generic Name Dose Route Start Last Admin Trade Name Freq PRN Reason Stop Dose Admin Lactated Ringer's 1,000 mls @ 15 mls/hr 02/17/24 06:30 02/17/24 07:03 IV 15 mls/hr .Q48H AISHA Administration PFSH Medical History Loss of hearing Cancer History of pressure injury of skin Open wound Diabetes Gastric reflux Non-smoker History of edema History of atrial fibrillation History of irregular heartbeat 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) Dysphagia (~12/2020) Generalized muscle weakness (~02/2022) Hypertension GERD (gastroesophageal reflux disease) DVT (deep venous thrombosis) Hyperglycemia Cellulitis of left lower extremity (~02/2022) PVD (peripheral vascular disease) Home Medications ?Medication ?Instructions ?Recorded ?Last Taken ?Type albuterol sulfate 90 mcg/actuation 2 puff inhalation Q4H PRN 07/28/22 02/16/24 History aerosol inhaler SHORTNESS OF BREATH/WHEEZING apixaban 5 mg tablet (Eliquis) 5 mg PO BID 10/21/23 02/16/24 History cholecalciferol (vitamin D3) 125 125 mcg PO DAILY 10/21/23 02/16/24 History mcg (5,000 unit) capsule furosemide 20 mg tablet 20 mg PO BID 10/21/23 02/16/24 History glimepiride 4 mg tablet 8 mg PO DAILY 10/21/23 02/16/24 History lisinopril 10 mg tablet 10 mg PO DAILY 10/21/23 02/16/24 History metformin 1,000 mg tablet 1,000 mg PO BID 10/21/23 02/16/24 History metformin 1,000 mg tablet 1,000 mg PO BID DIABETES 10/21/23 02/16/24 History omeprazole 20 mg capsule,delayed 20 mg PO BID 10/21/23 02/16/24 History release ascorbic acid (vitamin C) 1,000 mg 1 g PO DAILY 90 days #90 tabs 02/17/24 Unknown Rx tablet (Vitamin C) calcium carbonate 500 mg-vitamin 1 tab PO DAILY 90 days #90 tabs 02/17/24 Unknown Rx D3 15 mcg (600 unit) tablet (Os-Wojciech 500 + D3) docusate sodium 100 mg capsule 100 mg PO DAILY 10 days #10 caps 02/17/24 Unknown Rx (Colace) oxycodone-acetaminophen 5 mg-325 1 tab PO Q6H pain 7 days #28 tabs 02/17/24 Unknown Rx mg tablet (Endocet) Allergy/AdvReac Type Severity Reaction Status Date / Time NSAIDS (Non-Steroidal AdvReac PT UNSURE Verified 02/17/24 06:35 Anti-Inflamma OF REACTION Surgical History History of left below knee amputation History of cholecystectomy History of oral surgery Social History Smoking Status: Never smoker Review of Systems (Anesthesia) ROS Narrative System reviewed and no additional complaints, except as documented.
--- NOTE | 2024-02-17 09:24 | POSTOPAN2_ITS ---
Anesthesia Postop Eval I Sum Postop Eval Completion status Anesthesia document: Postop Eval 1 completed: Yes Anesthesia Postop Eval I Summary Anesthesia Postop Eval I Summary: Anesthesia Postop Eval I: Assessment Summary Airway patent Yes 02/17/24 08:53 [email or web address] Spontaneous unlabored Yes 02/17/24 08:53 [email or web address] [email or web address] respirations Mental status Awake - EASILY 02/17/24 08:53 [email or web address] [email or web address] AROUSABLE,Calm nausea No 02/17/24 08:53 VAULT [email or web address] Vomiting No 02/17/24 08:53 VAULT [email or web address] Anesthesia Postop Eval I: Fluid Summary Crystalloid volume administer 500 02/17/24 08:53 VAULT [email or web address] (ml) Colloids volume administered ( ml) Blood Product volume administered (ml) Total IV fluid infused 500 02/17/24 08:53 VAULT [email or web address] Anesthesia Postop Eval I: Summary Notes Anesthesia Complication No 02/17/24 08:53 VAULT [email or web address] Anesthesia Complication Comment: Post-operative progress note Anesthesia: Postop Eval II Evaluation Mental status: Awake Pain Level: 0 nausea: No Vomiting: No
--- NOTE | 2024-02-17 09:24 | PCM.POSTANE2 ---
Anesthesia Postop Eval I Sum Postop Eval Completion status Anesthesia document: Postop Eval 1 completed: Yes Anesthesia Postop Eval I Summary Anesthesia Postop Eval I Summary: Anesthesia Postop Eval I: Assessment Summary Airway patent Yes 02/17/24 08:53 RAMP [email or web address] Spontaneous unlabored Yes 02/17/24 08:53 RAMP [email or web address] respirations Mental status Awake - EASILY 02/17/24 08:53 RAMP [email or web address] AROUSABLE,Calm nausea No 02/17/24 08:53 RAMP [email or web address].[email or web address] Vomiting No 02/17/24 08:53 RAMP [email or web address].[email or web address] Anesthesia Postop Eval I: Fluid Summary Crystalloid volume administer 500 02/17/24 08:53 RAMP [email or web address].[email or web address] (ml) Colloids volume administered ( ml) Blood Product volume administered (ml) Total IV fluid infused 500 02/17/24 08:53 RAMP [email or web address].[email or web address] Anesthesia Postop Eval I: Summary Notes Anesthesia Complication No 02/17/24 08:53 RAMP [email or web address].[email or web address] Anesthesia Complication Comment: Post-operative progress note Anesthesia: Postop Eval II Evaluation Mental status: Awake Pain Level: 0 nausea: No Vomiting: No
--- NOTE | 2024-02-17 10:33 | SUR.PHASEII ---
Report called to Milvia nurse at [facility].
== END 2024-02-17 10:34 | disposition home or self-care (01) ==
LOC: SDC 06:07 → AC 06:10
PROVIDERS: PCP Internal Medicine Infectious Disease; Referring Provider Podiatrist Foot & Ankle Surgery; Visit Provider Podiatrist Foot & Ankle Surgery
PROC: (CPT 10140; principal; 2024-02-17 07:20)
DX: E11.622 Type 2 diabetes mellitus with other skin ulcer (principal); L97.313 Non-pressure chronic ulcer of right ankle with necrosis of muscle; L97.822 Non-pressure chronic ulcer of other part of left lower leg with fat layer exposed; E11.51 Type 2 diabetes mellitus with diabetic peripheral angiopathy without gangrene; E11.42 Type 2 diabetes mellitus with diabetic polyneuropathy; Z79.01 Long term (current) use of anticoagulants; Z79.84 Long term (current) use of oral hypoglycemic drugs; Z79.899 Other long term (current) drug therapy; Z86.16 Personal history of COVID-19; Z86.718 Personal history of other venous thrombosis and embolism
CPT/HCPCS: 10140; 11044; 15002; 15271; 00400; 73600; 76000; 82962; 87015; 87070; 87075; 87102; 87116; 87176; 87205; 87206; 88305; 88311; 93005; J7120; J2405

== ENCOUNTER 2024-03-09 09:30 | Outpatient (RCR) | payer MEDICARE, MEDICAID, SELFPAY ==
[2024-02-14 00:41] VITALS: BP 84/34; PULSE 114; RESP 18; TEMP 35.9; BMI 44.4
[2024-02-24 10:16] VITALS: BP 101/58; PULSE 92; RESP 18; TEMP 36.1; BMI 44.4
--- NOTE | 2024-02-24 13:07 | PCM.WC.PN ---
History of Present Illness Date of Service: 02/24/24 Chief Complaint: Bilateral leg wounds. History of Wound: By leg wounds. Subjective Subjective Mr. Olivares is a 78-year-old diabetic male presenting to wound care center for follow-up evaluation status post surgical drain skin graft site prep incision bone cortex with application skin graft substitute to the right ankle full-thickness wound, status post incision and drainage, application of antibiotic beads with delayed primary closure to the left below-knee amputation site full-thickness wound. He has left the dressing clean dry and intact. He denies much elevation and states that he usually sits in his walker all day. His legs are always in a dependent position. Blood sugar well-controlled. Denies trauma. Denies constitutional symptoms. Other pedal complaints at this time. Objective Data Objective Data Vital Signs: Vital Signs Temp Pulse Resp BP O2 Del Method 97.0 F L 92 18 101/58 L Room Air 02/24/24 10:16 02/24/24 10:16 02/24/24 10:16 02/24/24 10:16 02/24/24 10:16 Oxygen Delivery Method Room Air Weight: 161.479 kg Body Mass Index (BMI) 44.4 Physical Exam Narrative Vascular: DP and PT pulses are faintly palpable to the right lower extremity. CFT is brisk to the bilateral lower extremity. Neurological: Light touch intact. Protective sensation is absent. Dermatological: Incision well coapted to the left below-knee amputation site with sutures and anna. Evidence of maceration secondary to dependency. The full-thickness wound to the right lateral ankle has graft intact. Wound is stable with no sign of infection. Musculoskeletal: Left low knee amputation. Evidence of valgus contracture to the right ankle. Patient is nonambulatory and resides in wheelchair. No pain with calf pressure bilateral. 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 ) Arrival Mode Wheelchair Accompanied by NURSE Patient Identification Verified (Name & Yes ) Height and Weight Body Mass Index (BMI) 44.4 BMI Classification Obese Vital Signs Temperature (97.8 F-99.1 F) 97.0 F L Temperature Source Temporal Pulse Rate (60-100) 92 Pulse Location Monitor Respiratory Rate (12-18) 18 Respiratory rate source Observation Oxygen Delivery Method Room Air Blood Pressure (90/60-120/80) 101/58 L Blood Pressure Mean (mm Hg) 72 Source Monitor Position Sitting Blood Pressure Location Right Forearm History Since Last Visit- (Skip if this is Patient's initial visit) Have you changed medications since your No last visit? Any new allergies or adverse reactions No Had a fall/change in ADL's that may No increase risk of falls Signs or symptoms of abuse and/or No neglect since last visit Have you been in the hospital since your No last visit? Has dressing in place as prescribed Yes Has compression in place as prescribed Yes Has offloadiing in place as prescribed Yes Experienced any changes in pain level or No management Left Footwear No Footwear Right Footwear No Footwear Pain Scale: 0-10 Numeric Is Patient Pain Free? Yes WC - Nurse 1 - General Ulcer Measurement Start: 02/24/24 10:16 Freq: Status: Active Protocol: Activity Type Activity Date Activity User E-sign Co-sign Detail Recorded Client Recorded Date Recorded By Document 02/24/24 10:16 ANTELMO [id number] 02/24/24 10:21 ANTELMO 02/24/24 10:16 Wound Center Nurse 1 #8 Lt stump -Current Size (cm) - Length 0.1 -Current Size (cm) - Width 0.1 -Current Size (cm) - Depth 0.1 -Total Square Cm 0.01 -Date of Last Picture (Recall this 02/24/24 field) -Exudate Amt Medium -Exudate Type Serosanguineous -Wound Margin Distinct, Outline Attached -Texture (Michell-wound Skin Appearance) Assessed -Moisture (Michell-wound Skin Appearance) Assessed -Color (Michell-wound Skin Appearance) Assessed -Temperature (Michell-wound Skin No Abnormality Appearance) (Pt Warm) -Tenderness on Palpation (Michell-wound No Skin Appearance) -Ulcer Cleansing Soap and Water -Foul Odor after Cleansing No -Wound Comment(s) 9 ANNA AND 4 SUTURES INTACT , POST OP #4 RT LAT ANKLE -Current Size (cm) - Length 1.2 -Current Size (cm) - Width 1.6 -Current Size (cm) - Depth 1 -Total Square Cm 1.92 -Date of Last Picture (Recall this 02/24/24 field) -Exudate Amt Large -Exudate Type Serosanguineous -Wound Margin Thickened & Rolled Under -Granulation Amt Small (1-33%) -Granulation Quality [place] -Necrosis Amt Large (67-100%) -Necrotic Tissue Type Adherent Slough -Texture (Michell-wound Skin Appearance) Assessed -Moisture (Michell-wound Skin Appearance) Assessed, Maceration -Color (Michell-wound Skin Appearance) Assessed, Erythema -Temperature (Michell-wound Skin No Abnormality Appearance) (Pt Warm) -Tenderness on Palpation (Michell-wound No Skin Appearance) -Ulcer Cleansing Soap and Water -Foul Odor after Cleansing No -Anesthetic Used 5% Lidocaine Gel - Nurse 2 - General Ulcer CM Notes Start: 02/24/24 10:16 Freq: Status: Active Protocol: Activity Type Activity Date Activity User E-sign Co-sign Detail Recorded Client Recorded Date Recorded By Document 02/24/24 10:35 [id number] 02/24/24 10:36 02/24/24 10:35 Wound Center Nurse 2 #8 Lt stump -Correct Patient No -Correct Side, Site, Position No -Correct Procedure No -Procedure Performed No -Wound/Ulcer Outcome Not Healed -Debridement - Subq, 1st 20sq cm No #4 RT LAT ANKLE -Correct Patient No -Correct Side, Site, Position No -Correct Procedure No -Procedure Performed No -Wound/Ulcer Outcome Not Healed Pain Scale: 0-10 Numeric Is Patient Pain Free? Yes - Nurse 3 - General Ulcer D/C NN Start: 02/24/24 10:16 Freq: Status: Active Protocol: Activity Type Activity Date Activity User E-sign Co-sign Detail Recorded Client Recorded Date Recorded By Document 02/24/24 11:00 [id number] 02/24/24 11:01 02/24/24 11:00 Wound Care Center Nurse 3 #8 Lt stump -Ulcer Cleansing Not Cleansed -Foul Odor after Cleansing No -Primary Dressing Applied NonAdherent Contact Layer -Primary Dressing Covered/Secured with Dry Gauze & Roll Gauze, Secured with Tape #4 RT LAT ANKLE -Ulcer Cleansing Not Cleansed -Foul Odor after Cleansing No -Wound Comment(s) DR SHIRLEY DRESSED THIS WOUND Left -Compression Wrap Armaan Wrap Right -Lotion applied to leg before No compression wrap -Compression Wrap Armaan Wrap Pain Scale: 0-10 Numeric Is Patient Pain Free? 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 All findings were discussed with the patient. All questions were answered to the patient's satisfaction. Patient is recovering well from his bilateral lower extremity surgery it was stressed to the patient that he needs to make sure that he is lying in bed and elevating his bilateral lower extremity which she is understanding of. He was also stressed to the patient that if he sits in his wheelchair for long periods of time he will cause fluid to accumulate in his ankle and below-knee amputation stump and cause a wound dehiscence and failure for the wound to heal which she was also understanding of. He will continue strict blood sugar control. Half-inch Steri-Strips were applied to the left BKA stump for retention. Followed by Betadine soaked gauze and conformer wrap. Additional reinforcement was applied with Coban and Armaan bandage. Adaptic followed by half-inch Steri-Strips and bolster dressing was applied to right lower extremity with compression wrap. Orders were given to leave the dressing clean dry and intact and reinforce or change the left lower extremity if notable strikethrough. Again reeducated the patient to continue to rest and elevate his bilateral lower extremity. Follow-up at the wound care center with Dr. Shirley in 1 week. (2) Non-pressure chronic ulcer of other part of left lower leg with fat layer exposed: CODE(S): L97.822 - Non-pressure chronic ulcer of other part of left lower leg with fat layer exposed
--- NOTE | 2024-02-25 08:35 | WC ---
PHOTO 02/24/24 RIGHT LATERAL ANKLE
--- NOTE | 2024-02-25 08:43 | WC ---
PHOTO 02/24/24 LEFT STUMP
[2024-03-02 08:47] VITALS: BP 143/79; PULSE 92; RESP 18; TEMP 36; BMI 44.4
--- NOTE | 2024-03-02 09:41 | PCM.WC.PN ---
History of Present Illness Date of Service: 03/02/24 Chief Complaint: Bilateral leg wounds. History of Wound: By leg wounds. Subjective Subjective Mr. Olivares is a 78-year-old diabetic male presenting to wound care center for follow-up evaluation status post surgical drain skin graft site prep incision bone cortex with application skin graft substitute to the right ankle full-thickness wound, status post incision and drainage, application of antibiotic beads with delayed primary closure to the left below-knee amputation site full-thickness wound. He has left the dressing clean dry and intact. He denies much elevation and states that he usually sits in his walker all day. His legs are always in a dependent position. Blood sugar well-controlled. Denies trauma. Denies constitutional symptoms. Other pedal complaints at this time. Objective Data Objective Data Vital Signs: Vital Signs Temp Pulse Resp BP O2 Del Method 96.8 F L 92 18 143/79 H Room Air 03/02/24 08:47 03/02/24 08:47 03/02/24 08:47 03/02/24 08:47 03/02/24 08:47 Oxygen Delivery Method Room Air Weight: 161.479 kg Body Mass Index (BMI) 44.4 Physical Exam Narrative Vascular: DP and PT pulses are faintly palpable to the right lower extremity. CFT is brisk to the bilateral lower extremity. Neurological: Light touch intact. Protective sensation is absent. Dermatological: Evidence of maceration to the left below-knee amputation surgical site. Garry were loosely intact and removed. Evidence of sanguinous drainage with no concern of infection at this time. Evidence of full-thickness ulceration to the lateral right ankle measuring 1.0 x 1.5 x 0.6 cm. Wound base is granular nature. No sign of infection. Excisional debridement down to and including subcutaneous tissue with a number 3 mm dermal curette to the lateral right ankle ulceration without incident. Predebridement measurement was 0.8 x 1.3 x 0.3 cm. Postdebridement measurement is 1.0 x 1.5 x 0.6 cm. Musculoskeletal: Left low knee amputation. Evidence of valgus contracture to the right ankle. Patient is nonambulatory and resides in wheelchair. No pain with calf pressure bilateral. Debridement Note Debridement Note Debridement Free Text: Excisional debridement down to and including subcutaneous tissue with a number 3 mm dermal curette to the lateral right ankle ulceration without incident. Predebridement measurement was 0.8 x 1.3 x 0.3 cm. Postdebridement measurement is 1.0 x 1.5 x 0.6 cm. 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 (Physician/BRISKET PULLER ) ) Arrival Mode Wheelchair Ambulatory Accompanied by NURSE nurse Patient Identification Verified (Name & Yes Yes ) Height and Weight Body Mass Index (BMI) 44.4 44.4 BMI Classification Obese Obese Vital Signs Temperature (97.8 F-99.1 F) 97.0 F L 96.8 F L Temperature Source Temporal Temporal Pulse Rate (60-100) 92 92 Pulse Location Monitor Monitor Respiratory Rate (12-18) 18 18 Respiratory rate source Observation Observation Oxygen Delivery Method Room Air Room Air Blood Pressure (90/60-120/80) 101/58 L 143/79 H Blood Pressure Mean (mm Hg) 72 100 Source Monitor Monitor Position Sitting Semi-Fowlers Blood Pressure Location Right Forearm Left Arm History Since Last Visit- (Skip if this is Patient's initial visit) Have you changed medications since your No No last visit? Any new allergies or adverse reactions No No Had a fall/change in ADL's that may No No increase risk of falls Signs or symptoms of abuse and/or No No neglect since last visit Have you been in the hospital since your No No last visit? Has dressing in place as prescribed Yes Yes Has compression in place as prescribed Yes Yes Has offloadiing in place as prescribed Yes Yes Experienced any changes in pain level or No No management Left Footwear No Footwear No Footwear Right Footwear No Footwear No Footwear Pain Scale: 0-10 Numeric Is Patient Pain Free? Yes Yes [facility] Nurse 1 - General Ulcer Measurement Start: 02/24/24 10:16 Freq: Status: Active Protocol: Activity Type Activity Date Activity User E-sign Co-sign Detail Recorded Client Recorded Date Recorded By Document 02/24/24 10:16 KW [id number] 02/24/24 10:21 KW Document 03/02/24 08:47 KW [id number] 03/02/24 08:49 KW 02/24/24 03/02/24 10:16 08:47 Wound Center Nurse 1 #8 Lt stump -Current Size (cm) - Length 0.1 0.1 -Current Size (cm) - Width 0.1 0.1 -Current Size (cm) - Depth 0.1 0.1 -Total Square Cm 0.01 0.01 -Date of Last Picture (Recall this 02/24/24 03/02/24 field) -Exudate Amt Medium Large -Exudate Type Serosanguineous Serosanguineous -Wound Margin Distinct, Outline Attached -Texture (Michell-wound Skin Appearance) Assessed Assessed -Moisture (Michell-wound Skin Appearance) Assessed Assessed, Maceration -Color (Michell-wound Skin Appearance) Assessed Assessed -Temperature (Michell-wound Skin No Abnormality No Abnormality Appearance) (Pt Warm) (Pt Warm) -Tenderness on Palpation (Michell-wound No Skin Appearance) -Ulcer Cleansing Soap and Water Soap and Water -Foul Odor after Cleansing No No -Wound Comment(s) 9 GARRY AND 4 garry and SUTURES INTACT sutures intact , POST OP #4 RT LAT ANKLE -Current Size (cm) - Length 1.2 1.1 -Current Size (cm) - Width 1.6 1.4 -Current Size (cm) - Depth 1 0.3 -Total Square Cm 1.92 1.54 -Date of Last Picture (Recall this 02/24/24 03/02/24 field) -Exudate Amt Large Medium -Exudate Type Serosanguineous Serosanguineous -Wound Margin Thickened & Distinct, Rolled Under Outline Attached -Granulation Amt Small (1-33%) Small (1-33%) -Granulation Quality [place] -Necrosis Amt Large (67-100%) Large (67-100%) -Necrotic Tissue Type Adherent Slough Adherent Slough -Texture (Michell-wound Skin Appearance) Assessed Assessed, Localized Edema -Moisture (Michell-wound Skin Appearance) Assessed, Assessed Maceration -Color (Michell-wound Skin Appearance) Assessed, Assessed Erythema -Temperature (Michell-wound Skin No Abnormality No Abnormality Appearance) (Pt Warm) (Pt Warm) -Tenderness on Palpation (Michell-wound No Skin Appearance) -Ulcer Cleansing Soap and Water Soap and Water -Foul Odor after Cleansing No No -Anesthetic Used 5% Lidocaine Gel JOANA - Nurse 2 - General Ulcer CM Notes Start: 02/24/24 10:16 Freq: Status: Active Protocol: Activity Type Activity Date Activity User E-sign Co-sign Detail Recorded Client Recorded Date Recorded By Document 02/24/24 10:35 [id number] 02/24/24 10:36 Document 03/02/24 08:58 [id number] 03/02/24 09:02 02/24/24 03/02/24 10:35 08:58 Wound Center Nurse 2 #8 Lt stump -Correct Patient No No -Correct Side, Site, Position No No -Correct Procedure No No -Procedure Performed No No -Wound/Ulcer Outcome Not Healed Not Healed -Debridement - Subq, 1st 20sq cm No #4 RT LAT ANKLE -Time 08:58 -Correct Patient No Yes -Correct Side, Site, Position No Yes -Correct Procedure No Yes -Procedure Performed No Yes -Type of Procedure Debridement -Clinical Debridement Subcutaneous -Tissue Removed Subcutaneous -Post Debridement (cm) - Length 1.0 -Post Debridement (cm) - Width 1.5 -Post Debridement (cm) - Depth 0.6 -Total Square (Post) (cm) 1.50 -Area of Debridement (cm) - Length 1.0 -Area of Debridement (cm) - Width 1.5 -Total Square (Area) (cm) 1.50 -Tunneling No -Undermining/Tunneling No -Circular Undermining No -Wound/Ulcer Outcome Not Healed Not Healed -Ulcer Cleansing Rinsed/ Irrigated with Saline -Foul Odor after Cleansing No -Bioengineered Tissue No -Bleeding Controlled with Pressure -Treatment Response Procedure Tolerated Well -Offloading No -Debridement - Subq, 1st 20sq cm Yes Pain Scale: 0-10 Numeric Is Patient Pain Free? Yes Yes JOANA - Nurse 3 - General Ulcer D/C NN Start: 02/24/24 10:16 Freq: Status: Active Protocol: Activity Type Activity Date Activity User E-sign Co-sign Detail Recorded Client Recorded Date Recorded By Document 02/24/24 11:00 [id number] 02/24/24 11:01 Document 03/02/24 09:05 [id number] 03/02/24 09:06 02/24/24 03/02/24 11:00 09:05 Wound Care Center Nurse 3 #8 Lt stump -Ulcer Cleansing Not Cleansed Not Cleansed -Foul Odor after Cleansing No No -Primary Dressing Applied NonAdherent Contact Layer -Primary Dressing Covered/Secured with Dry Gauze & Dry Gauze,Dry Roll Gauze, Gauze & Roll Secured with Gauze,Secured Tape with Tape #4 RT LAT ANKLE -Ulcer Cleansing Not Cleansed Not Cleansed -Foul Odor after Cleansing No No -Primary Dressing Applied Promogran Rafaela Matter -Primary Dressing Covered/Secured with Dry Gauze & Roll Gauze, Secured with Tape -Promogran Rafaela Matter 1 -Wound Comment(s) DR SHIRLEY DRESSED THIS WOUND Left -Lotion applied to leg before No compression wrap -Compression Wrap Armaan Wrap Armaan Wrap Right -Lotion applied to leg before No No compression wrap -Compression Wrap Armaan Wrap Armaan Wrap Pain Scale: 0-10 Numeric Is Patient Pain Free? Yes Yes WC - Visit Discharge Discharge Condition Stable Stable Ambulatory Status Wheelchair Wheelchair Transportation Private Auto Private Auto Assessment/Plan Assessment/Plan (1) Non-pressure chronic ulcer of right ankle with fat layer exposed: CODE(S): L97.312 - Non-pressure chronic ulcer of right ankle with fat layer exposed PLAN: Patient was examined and evaluated. All findings were discussed with the patient. All questions were answered to the patient's satisfaction. Excisional debridement down to and including subcutaneous tissue with a number 3 mm dermal curette to the lateral right ankle ulceration without incident. Predebridement measurement was 0.8 x 1.3 x 0.3 cm. Postdebridement measurement is 1.0 x 1.5 x 0.6 cm. The right lower extremities were cleaned and patted dry. The ulceration was dressed with Rafaela dry sterile dressing and compression wrap was applied to right lower extremity. The left below-knee amputation surgical site incision had 3 garry removed due to failure. There is evidence of sanguinous drainage and no sign of infection. There is evidence of mild probing but improved since prior to surgery. The left below-knee amputation site incision was dressed with Betadine soaked gauze dry sterile dressing and compression wrap. Educated the patient continue to elevate and rest his bilateral lower extremity to decrease swelling and fluid collection which she is understanding of. He will monitor blood sugar and continue strict blood sugar control. Dressing changes were dispensed to the nursing staff at the facility for daily dressing changes to the left lower extremity and every other day dressing changes to the right lower extremity. Follow-up at the wound care center with Dr. Shirley in 1 week. (2) Non-pressure chronic ulcer of other part of left lower leg with fat layer exposed: CODE(S): L97.822 - Non-pressure chronic ulcer of other part of left lower leg with fat layer exposed
--- NOTE | 2024-03-02 09:47 | VDLE_ITS ---
Reason For Study: LE Ulcers RIGHT LEFT CFV is compressible, spontaneous, phasic, CFV is compressible, spontaneous, phasic, competent and demonstrates normal competent, and demonstrates normal augmentation. augmentation. FV is compressible, spontaneous, phasic, FV is compressible, spontaneous, phasic, competent and demonstrates normal competent and demonstrates normal augmentation. augmentation. POP V is compressible, spontaneous, phasic, POP V is compressible, spontaneous, phasic, competent and demonstrates normal competent and demonstrates normal augmentation. augmentation. T/P Trunk is compressible. T/P Trunk is compressible. PTV is compressible. SFJ is competent and measures 1.08 cm. RT PerV is compressible. GSV proximal thigh measures 0.91 x 0.88 cm. SFJ is competent and measures 1.06 cm. GSV above knee is competent. GSV proximal thigh measures 0.70 x 0.68 cm. HX LLE BKA. GSV at knee measures 0.39 x 0.37 cm. GSV INCOMPETENT throughout for greater than 0.5 seconds. SSV proximal calf is INCOMPETENT for greater than 0.5 seconds and measures 0.54 x 0.58 cm. Procedure This is a venous duplex using B-mode, color flow and spectral Doppler. Exam performed in department. The study was technically difficult. VL/Venous Duplex US - Toni Extrem Interpretation Summary Deep veins of the lower extremities are bilaterally patent and compressible seg mentally. There is no evidence of deep vein thrombosis on either side. Valvular competence appears in tact within the proximal deep venous systems bilaterally. The great saphenous veins appear bila terally patent and compressible segmentally. Sapheno-femoral junctions are bilaterally competent . The right great saphenous vein appears segmentally incompetent. The left great saphenous vein a ppears competent above the knee. A left below-knee amputation is noted (the left great saphenous vein below the knee and the left small saphenous vein are absent). The right small saphenous vein i s patent and incompetent. Ordering Physician: Christopher Sarah Referring Physician: Meeta Ryan Performed By: Marlon Gallego, RVT
--- NOTE | 2024-03-02 09:47 | ART_ITS ---
Version 2 Reason For Study: PVD Procedure A bilateral lower extremity continuous wave Doppler with analog waveform analysis,segmental pressures,and ankle brachial indexes without exercise. Left Segmental Pressures Left brachial= 113mmHg. Left thigh = 122mmHg. The left popliteal artery waveforms are biphasic. HX LT BKA. Right Segmental Pressures Right brachial= 106mmHg. Right posterior tibial artery = 114mmHg. Right dorsalis pedis artery = 121mmHg. Right digit = 74 mmHg. The right posterior tibial artery waveforms are triphasic. The right dorsalis pedis waveforms are triphasic. Indices The right ankle brachial index by the posterior tibial artery is 1.01. The right ankle brachial index by the dorsalis pedis is 1.07. The right digital-brachial index is 0.65. The left resting popliteal artery index is 1.08. VL/Lower Ext Art Exam w/o Exercis Interpretation Summary Triphasic Doppler waveforms are noted at ankle level on the right. Pulse-volume recordings appear diminished at digital level on the right, but satisfactory at all other levels on the right. The resting right ankle-brachial index is normal. The right digital-brachial index is mildly diminished. The patient has a left below-knee amputation. The left low thigh pressure appea rs consistent with systemic pressure, suggesting that flow is relatively normal. Arterial flow appears normal at ankle level on the right. 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 Arterial flow appears relative ly normal at low- thigh level on the left. Ordering Physician: Christopher Sarah Referring Physician: Meeta Ryan Performed By: Marlon Gallego RVT
--- NOTE | 2024-03-03 08:30 | WC ---
PHOTO 03/02/24 L [id number]
[2024-03-09 09:12] VITALS: BP 133/66; PULSE 90; RESP 18; TEMP 35.8; BMI 44.4
--- NOTE | 2024-03-09 10:25 | PN.PCM_ITS ---
History of Present Illness Date of Service: 03/09/24 Chief Complaint: Bilateral leg wounds. History of Wound: By leg wounds. Subjective Subjective Mr. Olivares is a 78-year-old diabetic male presenting to the wound care center today for follow-up evaluation of bilateral full-thickness wound. Patient has been getting dressing changes at the nursing facility. He admits to some improvement to the wounds. He has been offloading and elevating as instructed. Blood sugar well-controlled. Denies trauma. Denies constitutional symptoms. No other pedal complaints at this time. Objective Data Objective Data Vital Signs: Vital Signs Temp Pulse Resp BP O2 Del Method 96.4 F L 90 18 133/66 H Room Air 03/09/24 09:12 03/09/24 09:12 03/09/24 09:12 03/09/24 09:12 03/09/24 09:12 Oxygen Delivery Method Room Air Weight: 161.479 kg Body Mass Index (BMI) 44.4 Physical Exam Narrative Vascular: DP and PT pulses are faintly palpable to the right lower extremity. CFT is brisk to the bilateral lower extremity. Neurological: Light touch intact. Protective sensation is absent. Dermatological: Maceration improved to left below-knee amputation stump. Sutures and anna removed. Full-thickness wound to the left below-knee amputation stump measuring 1.3 x 2.0 x 4.1 cm. Positive probe to the muscle. Full-thickness ulceration to the right lateral ankle measuring 1.2 x 1.4 x 0.7 cm. Both wounds are 100% granular nature no drainage or sign of infection. Excisional debridement down to and including subcutaneous tissue, fascia and muscle to the left below-knee amputation stump with a number 3 mm dermal curette without incident. Predebridement measurement is 1.0 x 1.8 x 2.0 cm. Postdebridement measurement is 1.3 x 2.0 x 4.1 cm. Excision debridement down to and including subcutaneous tissue, fascia and muscle to the right lateral ankle full-thickness ulceration with a number 3 mm dermal curette without incident. Predebridement measurement is 1.0 x 1.2 x 0.5 cm. Postdebridement measurement is 1.2 x 1.4 x 0.7 cm. Musculoskeletal: Left low knee amputation. Evidence of valgus contracture to the right ankle. Patient is nonambulatory and resides in wheelchair. No pain with calf pressure bilateral. Debridement Note Debridement Note Debridement Free Text: Excisional debridement down to and including subcutaneous tissue, fascia and muscle to the left below-knee amputation stump with a number 3 mm dermal curette without incident. Predebridement measurement is 1.0 x 1.8 x 2.0 cm. Postdebridement measurement is 1.3 x 2.0 x 4.1 cm. Excision debridement down to and including subcutaneous tissue, fascia and muscle to the right lateral ankle full-thickness ulceration with a number 3 mm dermal curette without incident. Predebridement measurement is 1.0 x 1.2 x 0.5 cm. Postdebridement measurement is 1.2 x 1.4 x 0.7 cm. Post-Debridement Measurements and Additional Note: Post-Debridement Measurements/Treatment - Nurse 1 - General Ulcer Assessment Start: 02/24/24 10:16 Freq: Status: Active Protocol: .LOWEXKaitlin Activity Type Activity Date Activity User E-sign Co-sign Detail Recorded Client Recorded Date Recorded By Document 02/24/24 10:16 [id number] 02/24/24 10:21 KW Document 03/02/24 08:47 KW [id number] 03/02/24 08:49 KW Document 03/09/24 09:12 KW [id number] 03/09/24 09:22 KW 02/24/24 03/02/24 03/09/24 10:16 08:47 09:12 - Today's Visit Information Type of service Follow-up Visit Follow-up Visit Follow-up Visit (Physician/METHODS SPECIALIST (Physician/METHODS SPECIALIST (Physician/METHODS SPECIALIST ) ) ) Arrival Mode Wheelchair Ambulatory Wheelchair Transfer Assistance None Accompanied by NURSE nurse detention nurse Patient Identification Verified (Name & Yes Yes Yes ) Patient Requires Transmission-Based No Precautions Height and Weight Body Mass Index (BMI) 44.4 44.4 44.4 BMI Classification Obese Obese Obese Vital Signs Temperature (97.8 F-99.1 F) 97.0 F L 96.8 F L 96.4 F L Temperature Source Temporal Temporal Temporal Pulse Rate (60-100) 92 92 90 Pulse Location Monitor Monitor Monitor Respiratory Rate (12-18) 18 18 18 Respiratory rate source Observation Observation Observation Oxygen Delivery Method Room Air Room Air Room Air Blood Pressure (90/60-120/80) 101/58 L 143/79 H 133/66 H Blood Pressure Mean (mm Hg) 72 100 88 Source Monitor Monitor Monitor Position Sitting Semi-Fowlers Sitting Blood Pressure Location Right Forearm Left Arm Right Arm History Since Last Visit- (Skip if this is Patient's initial visit) Have you changed medications since your No No No last visit? Any new allergies or adverse reactions No No No Had a fall/change in ADL's that may No No No increase risk of falls Signs or symptoms of abuse and/or No No No neglect since last visit Have you been in the hospital since your No No No last visit? Has dressing in place as prescribed Yes Yes Yes Has compression in place as prescribed Yes Yes Yes Has offloadiing in place as prescribed Yes Yes Yes Experienced any changes in pain level or No No No management Left Footwear No Footwear No Footwear Darwin/Foam Right Footwear No Footwear No Footwear Darwin/Foam Pain Scale: 0-10 Numeric Is Patient Pain Free? Yes Yes No Left stump -Description Burning -Intensity 3 -Duration (hours) Chronic -Pain Behavior No Change in Behavior -Alleviating Factors/Interventions Will continue to monitor, Emotional Support WC - Nurse 1 - General Ulcer Measurement Start: 02/24/24 10:16 Freq: Status: Active Protocol: Activity Type Activity Date Activity User E-sign Co-sign Detail Recorded Client Recorded Date Recorded By Document 02/24/24 10:16 [id number] 02/24/24 10:21 KW Document 03/02/24 08:47 KW [id number] 03/02/24 08:49 KW Document 03/09/24 09:12 KW [id number] 03/09/24 09:22 KW 02/24/24 03/02/24 03/09/24 10:16 08:47 09:12 Wound Center Nurse 1 #8 Lt stump -Current Size (cm) - Length 0.1 0.1 0.1 -Current Size (cm) - Width 0.1 0.1 0.1 -Current Size (cm) - Depth 0.1 0.1 0.1 -Total Square Cm 0.01 0.01 0.01 -Date of Last Picture (Recall this 02/24/24 03/02/24 03/09/24 field) -Photo Taken Yes -Exudate Amt Medium Large Medium -Exudate Type Serosanguineous Serosanguineous Sanguineous -Wound Margin Distinct, Outline Attached -Texture (Michell-wound Skin Appearance) Assessed Assessed -Moisture (Michell-wound Skin Appearance) Assessed Assessed, Maceration -Color (Michell-wound Skin Appearance) Assessed Assessed -Temperature (Michell-wound Skin No Abnormality No Abnormality Appearance) (Pt Warm) (Pt Warm) -Tenderness on Palpation (Michell-wound No Skin Appearance) -Ulcer Cleansing Soap and Water Soap and Water -Foul Odor after Cleansing No No -Wound Comment(s) 9 ANNA AND 4 anna and sutures and SUTURES INTACT sutures intact anna intact, , POST OP medial part of incision has dehisced. michell wound is irritated and bleeding #4 RT LAT ANKLE -Current Size (cm) - Length 1.2 1.1 1.2 -Current Size (cm) - Width 1.6 1.4 1.0 -Current Size (cm) - Depth 1 0.3 0.6 -Total Square Cm 1.92 1.54 1.20 -Date of Last Picture (Recall this 02/24/24 03/02/24 03/09/24 field) -Photo Taken Yes -Epithelialization Small 1-33% -Tunneling No -Undermining/Tunneling No -Circular Undermining No -Exudate Amt Large Medium Medium -Exudate Type Serosanguineous Serosanguineous Yellow/Green -Wound Margin Thickened & Distinct, Thickened & Rolled Under Outline Rolled Under Attached -Granulation Amt Small (1-33%) Small (1-33%) Medium (34-66%) -Granulation Quality [place] -Slough/Fibrin No -Necrosis Amt Large (67-100%) Large (67-100%) -Necrotic Tissue Type Adherent Slough Adherent Slough -Texture (Michell-wound Skin Appearance) Assessed Assessed, Assessed Localized Edema -Moisture (Michell-wound Skin Appearance) Assessed, Assessed Assessed, Maceration Maceration -Color (Michell-wound Skin Appearance) Assessed, Assessed Assessed Erythema -Temperature (Michell-wound Skin No Abnormality No Abnormality No Abnormality Appearance) (Pt Warm) (Pt Warm) (Pt Warm) -Tenderness on Palpation (Michell-wound No Skin Appearance) -Ulcer Cleansing Soap and Water Soap and Water Soap and Water -Foul Odor after Cleansing No No No -Anesthetic Used 5% Lidocaine 5% Lidocaine Gel Gel WC - Nurse 2 - General Ulcer CM Notes Start: 02/24/24 10:16 Freq: Status: Active Protocol: Activity Type Activity Date Activity User E-sign Co-sign Detail Recorded Client Recorded Date Recorded By Document 02/24/24 10:35 [id number] 02/24/24 10:36 Document 03/02/24 08:58 [id number] 03/02/24 09:02 JF Document 03/09/24 09:36 [id number] 03/09/24 09:44 02/24/24 03/02/24 03/09/24 10:35 08:58 09:36 Wound Center Nurse 2 #8 Lt stump -Time 09:42 -Correct Patient No No Yes -Correct Side, Site, Position No No Yes -Correct Procedure No No Yes -Procedure Performed No No Yes -Type of Procedure Debridement -Clinical Debridement Muscle / Fascia -Tissue Removed Muscle,Fascia -Post Debridement (cm) - Length 1.3 -Post Debridement (cm) - Width 2.0 -Post Debridement (cm) - Depth 4.1 -Total Square (Post) (cm) 2.60 -Area of Debridement (cm) - Length 1.3 -Area of Debridement (cm) - Width 2.0 -Total Square (Area) (cm) 2.60 -Tunneling No -Undermining/Tunneling No -Circular Undermining No -Wound/Ulcer Outcome Not Healed Not Healed Not Healed -Ulcer Cleansing Rinsed/ Irrigated with Saline -Foul Odor after Cleansing No -Bioengineered Tissue No -Bleeding Controlled with Pressure -Treatment Response Procedure Tolerated Well -Offloading No -Debridement - Subq, 1st 20sq cm No -Debridement - Muscle / Fascia, 1st Yes 20sq cm #4 RT LAT ANKLE -Time 08:58 09:43 -Correct Patient No Yes Yes -Correct Side, Site, Position No Yes Yes -Correct Procedure No Yes Yes -Procedure Performed No Yes Yes -Type of Procedure Debridement Debridement -Clinical Debridement Subcutaneous Muscle / Fascia -Tissue Removed Subcutaneous Muscle,Fascia -Post Debridement (cm) - Length 1.0 1.2 -Post Debridement (cm) - Width 1.5 1.4 -Post Debridement (cm) - Depth 0.6 0.7 -Total Square (Post) (cm) 1.50 1.68 -Area of Debridement (cm) - Length 1.0 1.2 -Area of Debridement (cm) - Width 1.5 1.4 -Total Square (Area) (cm) 1.50 1.68 -Tunneling No No -Undermining/Tunneling No No -Circular Undermining No No -Wound/Ulcer Outcome Not Healed Not Healed Not Healed -Ulcer Cleansing Rinsed/ Rinsed/ Irrigated with Irrigated with Saline Saline -Foul Odor after Cleansing No No -Bioengineered Tissue No No -Bleeding Controlled with Pressure Pressure -Treatment Response Procedure Procedure Not Tolerated Well Tolerated Well -Offloading No No -Debridement - Subq, 1st 20sq cm Yes No -Debridement - Muscle / Fascia, 1st No 20sq cm Pain Scale: 0-10 Numeric Is Patient Pain Free? Yes Yes Yes - Nurse 3 - General Ulcer D/C NN Start: 02/24/24 10:16 Freq: Status: Active Protocol: Activity Type Activity Date Activity User E-sign Co-sign Detail Recorded Client Recorded Date Recorded By Document 02/24/24 11:00 [id number] 02/24/24 11:01 Document 03/02/24 09:05 [id number] 03/02/24 09:06 Document 03/09/24 10:04 [id number] 03/09/24 10:06 02/24/24 03/02/24 03/09/24 11:00 09:05 10:04 Wound Care Center Nurse 3 #8 Lt stump -Ulcer Cleansing Not Cleansed Not Cleansed Not Cleansed -Foul Odor after Cleansing No No No -Negative Pressure Wound Therapy N/A -Primary Dressing Applied NonAdherent Contact Layer -Primary Dressing Covered/Secured with Dry Gauze & Dry Gauze,Dry Dry Gauze & Roll Gauze, Gauze & Roll Roll Gauze, Secured with Gauze,Secured Secured with Tape with Tape Tape -Other Covering betadine #4 RT LAT ANKLE -Ulcer Cleansing Not Cleansed Not Cleansed Not Cleansed -Foul Odor after Cleansing No No No -Primary Dressing Applied Promogran Rafaela Matter -Primary Dressing Covered/Secured with Dry Gauze & Dry Gauze & Roll Gauze, Roll Gauze, Secured with Secured with Tape Tape -Other Covering betadine -Promogran Rafaela Matter 1 -Wound Comment(s) DR SHIRLEY DRESSED THIS WOUND Left -Lotion applied to leg before No No compression wrap -Compression Wrap Armaan Wrap Armaan Wrap Armaan Wrap Right -Lotion applied to leg before No No No compression wrap -Compression Wrap Armaan Wrap Armaan Wrap Armaan Wrap Pain Scale: 0-10 Numeric Is Patient Pain Free? Yes Yes Yes WC - Visit Discharge Discharge Condition Stable Stable Ambulatory Status Wheelchair Wheelchair Ambulatory Transportation Private Auto Private Auto Private Auto Assessment/Plan Assessment/Plan (1) Non-pressure chronic ulcer of right ankle with necrosis of muscle: CODE(S): L97.313 - Non-pressure chronic ulcer of right ankle with necrosis of muscle PLAN: Patient was examined and evaluated. All findings were discussed with the patient. All questions were answered to the patient's satisfaction. Excisional debridement down to and including subcutaneous tissue, fascia and muscle to the left below-knee amputation stump with a number 3 mm dermal curette without incident. Predebridement measurement is 1.0 x 1.8 x 2.0 cm. Postdebridement measurement is 1.3 x 2.0 x 4.1 cm. Excision debridement down to and including subcutaneous tissue, fascia and muscle to the right lateral ankle full-thickness ulceration with a number 3 mm dermal curette without incident. Predebridement measurement is 1.0 x 1.2 x 0.5 cm. Postdebridement measurement is 1.2 x 1.4 x 0.7 cm. The bilateral lower extremities were cleaned and patted dry. Betadine soaked gauze was applied to the wound deficit of the left below-knee amputation ulceration followed by Betadine soaked gauze applied to the full-thickness wound to the right lateral ankle. All wounds were dressed with dry sterile dressing and compression wrap. Patient will have every other day dressing changes by nursing facility. Educated the patient continue strict blood sugar control daily dressing changes by nursing facility. Educated the patient continue strict blood sugar control as he has been doing so currently. Patient will follow-up with the wound care center with Dr. Shirley in 1 week (2) Non-pressure chronic ulcer of other part of left lower leg with necrosis of muscle: CODE(S): L97.823 - Non-pressure chronic ulcer of other part of left lower leg with necrosis of muscle
--- NOTE | 2024-03-11 08:35 | WC ---
PHOTO 03/09/24 RIGHT LATERAL ANKLE
--- NOTE | 2024-03-11 08:39 | WC ---
PHOTO 03/09/24 LEFT STUMP
--- NOTE | 2024-03-11 08:42 | WC ---
PHOTO 03/09/24 LEFT STUMP
== END 2024-03-14 23:59 | disposition home or self-care (01) ==
LOC: WC 09:30
PROVIDERS: PCP Internal Medicine Infectious Disease; Referring Provider Internal Medicine Infectious Disease; Visit Provider Podiatrist Foot & Ankle Surgery
DX: E11.622 Type 2 diabetes mellitus with other skin ulcer (principal); L97.313 Non-pressure chronic ulcer of right ankle with necrosis of muscle; L97.823 Non-pressure chronic ulcer of other part of left lower leg with necrosis of muscle; L97.512 Non-pressure chronic ulcer of other part of right foot with fat layer exposed; T87.89 Other complications of amputation stump; E11.51 Type 2 diabetes mellitus with diabetic peripheral angiopathy without gangrene; E11.42 Type 2 diabetes mellitus with diabetic polyneuropathy; Y83.5 Amputation of limb(s) as the cause of abnormal reaction of the patient, or of later complication, without mention of misadventure at the time of the procedure; R60.0 Localized edema
CPT/HCPCS: 11042; 11043; 93923; 93970; 99214; G0463

== ENCOUNTER 2024-04-13 09:00 | Outpatient (RCR) | payer MEDICARE, MEDICAID, SELFPAY ==
[2024-03-15 00:41] VITALS: BP 84/34; PULSE 114; RESP 18; TEMP 35.9; BMI 44.4
[2024-03-16 09:02] VITALS: BP 143/67; PULSE 92; RESP 18; TEMP 36.1; BMI 44.4
--- NOTE | 2024-03-16 20:34 | PN.PCM_ITS ---
History of Present Illness Date of Service: 03/16/24 Chief Complaint: Bilateral leg wounds. History of Wound: By leg wounds. Subjective Subjective Mr. Olivares is a pleasant 78-year-old diabetic male presenting to the wound care center today for follow-up and evaluation to bilateral lower extremity right ankle and left below the knee amputation stump ulcerations. Patient states that over the weekend he has been having more pain with dressing changes to the left below the knee amputation stump. He admits to not getting regular dressing changes by the wound care nurse but has a floor nurse filling in for them. He has noticed discomfort with every dressing change since his wound care nurse has been out of town. The right lower extremity is pain-free at this time. Blood sugar well-controlled. Patient continues to rest and elevate as instructed. Denies any new onset of trauma. Denies constitutional symptoms. To the pedal complaints at this time. Objective Data Objective Data Vital Signs: Vital Signs Temp Pulse Resp BP O2 Del Method 96.9 F L 92 18 143/67 H Room Air 03/16/24 09:02 03/16/24 09:02 03/16/24 09:02 03/16/24 09:02 03/16/24 09:02 Oxygen Delivery Method Room Air Weight: 161.479 kg Body Mass Index (BMI) 44.4 Lab / Micro Data Micro: Microbiology 03/16/24 09:28 Ulcer, Decubitus - Other Gram Stain - Final Physical Exam Narrative Vascular: DP and PT pulses are faintly palpable to the right lower extremity. CFT is brisk to the bilateral lower extremity. Evidence of circumferential erythema which is blanchable as well as ecchymosis to the left below the knee amputation stump just to below the popliteal fossa and tibial tuberosity. Neurological: Light touch intact. Protective sensation is absent. Dermatological: Evidence of circumferential erythema which is blanchable as well as ecchymosis to the left below the knee amputation stump just to below the popliteal fossa and tibial tuberosity. Full-thickness wound to the left below- knee amputation stump measuring 0.7 x 1.5 x 4.0 cm. Positive probe to the muscle. Full-thickness ulceration to the right lateral ankle measuring 0.8 x 1 .3 x 0.4 cm. Excisional debridement down to and including subcutaneous tissue, fascia and muscle to the left below-knee amputation stump with a number 3 mm dermal curette without incident. Predebridement measurement is 0.6 x 1.3 x 3.5 cm. Postdebridement measurement is 0.7 x 1.5 x 4.0 cm. Excision debridement down to and including subcutaneous tissue, fascia and muscle to the right lateral ankle full-thickness ulceration with a number 3 mm dermal curette without incident. Predebridement measurement is 0.7 x 1.3 x 0.4 cm. Postdebridement measurement is 0.8 x 1.3 x 0.4 cm. 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 Evidence of valgus contracture to the right ankle. Patient is nonambulatory and resides in wheelchair. No pain with calf pressure bilateral. Debridement Note Debridement Note Debridement Free Text: Excisional debridement down to and including subcutaneous tissue, fascia and muscle to the left below-knee amputation stump with a number 3 mm dermal curette without incident. Predebridement measurement is 0.6 x 1.3 x 3.5 cm. Postdebridement measurement is 0.7 x 1.5 x 4.0 cm. Excision debridement down to and including subcutaneous tissue, fascia and muscle to the right lateral ankle full-thickness ulceration with a number 3 mm dermal curette without incident. Predebridement measurement is 0.7 x 1.3 x 0.4 cm. Postdebridement measurement is 0.8 x 1.3 x 0.4 cm. Post-Debridement Measurements and Additional Note: Post-Debridement Measurements/Treatment - Nurse 1 - General Ulcer Assessment Start: 03/16/24 09:00 Freq: Status: Active Protocol: [email or web address] Activity Type Activity Date Activity User E-sign Co-sign Detail Recorded Client Recorded Date Recorded By Document 03/16/24 09:02 KW [id number] 03/16/24 09:14 KW 03/16/24 09:02 - Today's Visit Information Type of service Follow-up Visit (Physician/BLOCK [facility]TER [facility] ) Arrival Mode Wheelchair Accompanied by nurse Patient Identification Verified (Name & Yes ) Height and Weight Body Mass Index (BMI) 44.4 BMI Classification Obese Vital Signs Temperature (97.8 F-99.1 F) 96.9 F L Temperature Source Temporal Pulse Rate (60-100) 92 Pulse Location Monitor Respiratory Rate (12-18) 18 Respiratory rate source Observation Oxygen Delivery Method Room Air Blood Pressure (90/60-120/80) 143/67 H Blood Pressure Mean (mm Hg) 92 Source Monitor Position Sitting Blood Pressure Location Right Arm History Since Last Visit- (Skip if this is Patient's initial visit) Have you changed medications since your No last visit? Any new allergies or adverse reactions No Had a fall/change in ADL's that may No increase risk of falls Signs or symptoms of abuse and/or No neglect since last visit Have you been in the hospital since your No last visit? Has dressing in place as prescribed Yes Has compression in place as prescribed Yes Has offloadiing in place as prescribed Yes Experienced any changes in pain level or No management Left Footwear No Footwear Right Footwear No Footwear Pain Scale: 0-10 Numeric Is Patient Pain Free? Yes WC - Nurse 1 - General Ulcer Measurement Start: 03/16/24 09:00 Freq: Status: Active Protocol: Activity Type Activity Date Activity User E-sign Co-sign Detail Recorded Client Recorded Date Recorded By Document 03/16/24 09:02 [id number] 03/16/24 09:14 03/16/24 09:02 Wound Center Nurse 1 #8 Lt stump -Current Size (cm) - Length 2 -Current Size (cm) - Width 2 -Current Size (cm) - Depth 1 -Total Square Cm 4 -Exudate Amt Small -Exudate Type Serosanguineous -Wound Margin Distinct, Outline Attached -Granulation Amt Medium (34-66%) -Granulation Quality Red -Necrosis Amt Medium (34-66%) -Necrotic Tissue Type Adherent Slough -Texture (Michell-wound Skin Appearance) Assessed, Friable -Moisture (Michell-wound Skin Appearance) Assessed -Color (Michell-wound Skin Appearance) Assessed -Temperature (Michell-wound Skin No Abnormality Appearance) (Pt Warm) -Tenderness on Palpation (Michell-wound No Skin Appearance) -Ulcer Cleansing Soap and Water -Foul Odor after Cleansing No -Anesthetic Used 5% Lidocaine Gel #4 RT LAT ANKLE -Current Size (cm) - Length 1 -Current Size (cm) - Width 1.3 -Current Size (cm) - Depth 0.3 -Total Square Cm 1.3 -Exudate Amt Small -Exudate Type Serosanguineous -Wound Margin Thickened -Granulation Amt Small (1-33%) -Granulation Quality [place] -Necrosis Amt Large (67-100%) -Necrotic Tissue Type Adherent Slough -Texture (Michell-wound Skin Appearance) Assessed, Localized Edema -Moisture (Michell-wound Skin Appearance) Assessed -Color (Michell-wound Skin Appearance) Assessed -Temperature (Michell-wound Skin No Abnormality Appearance) (Pt Warm) -Tenderness on Palpation (Michell-wound No Skin Appearance) -Ulcer Cleansing Soap and Water -Foul Odor after Cleansing No -Anesthetic Used 5% Lidocaine Gel Right Calf (cm) 46 Right Ankle (cm) 25 WC - Nurse 2 - General Ulcer CM Notes Start: 03/16/24 09:00 Freq: Status: Active Protocol: Activity Type Activity Date Activity User E-sign Co-sign Detail Recorded Client Recorded Date Recorded By Document 03/16/24 09:30 [email or web address] [id number] 03/16/24 09:42 JF 03/16/24 09:30 Wound Center Nurse 2 #8 Lt stump -Time 09:32 -Correct Patient Yes -Correct Side, Site, Position Yes -Correct Procedure Yes -Procedure Performed Yes -Type of Procedure Debridement -Clinical Debridement Muscle / Fascia -Tissue Removed Muscle,Fascia -Post Debridement (cm) - Length 0.7 -Post Debridement (cm) - Width 1.5 -Post Debridement (cm) - Depth 4.0 -Total Square (Post) (cm) 1.05 -Area of Debridement (cm) - Length 0.7 -Area of Debridement (cm) - Width 1.5 -Total Square (Area) (cm) 1.05 -Tunneling No -Undermining/Tunneling No -Circular Undermining No -Wound/Ulcer Outcome Not Healed -Ulcer Cleansing Rinsed/ Irrigated with Saline -Foul Odor after Cleansing No -Bioengineered Tissue No -Bleeding Controlled with Pressure -Treatment Response Procedure Tolerated Well -Offloading No -Debridement - Muscle / Fascia, 1st Yes 20sq cm #4 RT LAT ANKLE -Time 09:33 -Correct Patient Yes -Correct Side, Site, Position Yes -Correct Procedure Yes -Procedure Performed Yes -Type of Procedure Debridement -Clinical Debridement Subcutaneous -Tissue Removed Subcutaneous -Post Debridement (cm) - Length 0.8 -Post Debridement (cm) - Width 1.3 -Post Debridement (cm) - Depth 0.4 -Total Square (Post) (cm) 1.04 -Area of Debridement (cm) - Length 0.8 -Area of Debridement (cm) - Width 1.3 -Total Square (Area) (cm) 1.04 -Tunneling No -Undermining/Tunneling No -Circular Undermining No -Wound/Ulcer Outcome Not Healed -Ulcer Cleansing Rinsed/ Irrigated with Saline -Foul Odor after Cleansing No -Bioengineered Tissue No -Bleeding Controlled with Pressure -Treatment Response Procedure Tolerated Well -Offloading No -Debridement - Subq, 1st 20sq cm Yes Pain Scale: 0-10 Numeric Is Patient Pain Free? Yes - Nurse 3 - General Ulcer D/C NN Start: 03/16/24 09:00 Freq: Status: Active Protocol: Activity Type Activity Date Activity User E-sign Co-sign Detail Recorded Client Recorded Date Recorded By Document 03/16/24 09:52 [id number] 03/16/24 09:53 GM 03/16/24 09:52 Wound Care Center Nurse 3 #8 Lt stump -Ulcer Cleansing Not Cleansed -Foul Odor after Cleansing No -Primary Dressing Covered/Secured with Dry Gauze & Roll Gauze, Secured with Tape #4 RT LAT ANKLE -Ulcer Cleansing Not Cleansed -Foul Odor after Cleansing No -Primary Dressing Covered/Secured with Dry Gauze & Roll Gauze, Secured with Tape Left -Lotion applied to leg before No compression wrap -Compression Wrap Armaan Wrap Right -Compression Wrap Armaan Wrap Pain Scale: 0-10 Numeric Is Patient Pain Free? Yes - Visit Discharge Discharge Condition Stable Ambulatory Status Wheelchair Transportation Private Auto Assessment/Plan Assessment/Plan (1) Non-pressure chronic ulcer of other part of left lower leg with necrosis of muscle: CODE(S): L97.823 - Non-pressure chronic ulcer of other part of left lower leg with necrosis of muscle PLAN: Patient was examined and evaluated. All findings were discussed with the patient. All questions were answered to the patient's satisfaction. Excisional debridement down to and including subcutaneous tissue, fascia and muscle to the left below-knee amputation stump with a number 3 mm dermal curette without incident. Predebridement measurement is 0.6 x 1.3 x 3.5 cm. Postdebridement measurement is 0.7 x 1.5 x 4.0 cm. Excision debridement down to and including subcutaneous tissue, fascia and muscle to the right lateral ankle full-thickness ulceration with a number 3 mm dermal curette without incident. Predebridement measurement is 0.7 x 1.3 x 0.4 cm. Postdebridement measurement is 0.8 x 1.3 x 0.4 cm. Bilateral lower extremities were cleaned and patted dry. Iodoform packing was applied to the left below-knee amputation stump full-thickness wound. Rafaela was applied to the right lateral ankle ulceration. Dry sterile dressing was applied lightly to the bilateral wound areas followed by compression wrap. Patient will have dressing changes every other day to the right lower extremity. There will be daily dressing changes to the left below-knee amputation stump location. Once the examination and debridement was concluded it was discussed with the nursing staff that accompanied the patient that there is concern for deep tissue injury and improper wound management at the facility by the nurse that is filling in for the wound care nurse. The patient shows evidence of circumferent ial deep tissue injury with ecchymosis secondary to aggressive dressing changes with unneeded compression by the dry sterile dressing. I educated the nurse that this needs to be discussed with the nursing staff at the facility in great detail as there is concern for damage to the underlying tissue of the left below-knee amputation stump. Again during my evaluation of the patient, the patient did admit to having multiple days of pain which he expressed to the nursing staff but he seemed to be ignored regarding the pain to the left below- knee amputation stump dressing, meaning that it was too tight. The patient is a diabetic that suffers from neuropathy and if he is complaining about a dressing being to tight and having pain there is a problem which was conveyed to the nursing staff at the facility. I stressed to the nurse accompanying the patient that my orders need to be followed as I/we are the ones treating the patient and need to following my orders. I further enforced and conveyed that we are working as a team and that everybody needs to be aware of Mr. Olivares's condition. Educated the patient continue strict blood sugar control daily dressing changes by nursing facility. Educated the patient continue strict blood sugar control as he has been doing so currently. Patient will follow-up with the wound care center with Dr. Sarah in 1 week (2) Non-pressure chronic ulcer of right ankle with fat layer exposed: CODE(S): L97.312 - Non-pressure chronic ulcer of right ankle with fat layer exposed (3) Contusion of left leg: CODE(S): S80.12XA - Contusion of left lower leg, initial encounter
[2024-03-23 10:37] VITALS: BP 166/73; PULSE 110; RESP 18; TEMP 35.9; BMI 44.4
--- NOTE | 2024-03-23 11:20 | PN.PCM_ITS ---
History of Present Illness Date of Service: 03/23/24 Chief Complaint: Bilateral leg wounds. History of Wound: By leg wounds. Subjective Subjective Mr. Olivares is a 78-year-old diabetic male presenting to wound care center today for follow-up evaluation to bilateral lower extremity ulcerations. Patient has been getting wound care dressing changes from the wound care nurse at his [facility] facility. He admits to improvement to his wounds. His blood sugars under control. He denies any pain to the left lower extremity. Denies trauma. Denies constitutional symptoms. No other pedal complaints at this time. Objective Data Objective Data Vital Signs: Vital Signs Temp Pulse Resp BP O2 Del Method 96.7 F L 110 H 18 166/73 H Room Air 03/23/24 10:37 03/23/24 10:37 03/23/24 10:37 03/23/24 10:37 03/16/24 09:02 Oxygen Delivery Method Room Air Weight: 161.479 kg Body Mass Index (BMI) 44.4 Lab / Micro Data Micro: Microbiology 03/16/24 09:28 Ulcer, Decubitus - Other Gram Stain - Final 03/16/24 09:28 Ulcer, Decubitus - Other Wound Culture - Final Staphylococcus aureus 03/16/24 09:28 Ulcer, Decubitus - Other Anaerobic Culture - Final No anaerobic bacteria isolated. Physical Exam Narrative Vascular: DP and PT pulses are faintly palpable to the right lower extremity. CFT is brisk to the bilateral lower extremity. Evidence of circumferential erythema which is blanchable as well as ecchymosis to the left below the knee amputation stump just to below the popliteal fossa and tibial tuberosity, improving Neurological: Light touch intact. Protective sensation is absent. Dermatological: Evidence of circumferential erythema which is blanchable as well as ecchymosis to the left below the knee amputation stump just to below the popliteal fossa and tibial tuberosity, improving. Full-thickness wound to the left below-knee amputation stump measuring 0.6 x 2.0 x 3.6 cm. Positive probe to the muscle. Full-thickness ulceration to the right lateral ankle measuring 0.8 x 0.9 x 0.2 cm. Excisional debridement down to and including subcutaneous tissue, fascia and muscle to the left below-knee amputation stump with a number 3 mm dermal curette without incident. Predebridement measurement is 0.5 x 1.8 x 3.3 cm. Postdebridement measurement is 0.6 x 2.0 x 3.6 cm. Excision debridement down to and including subcutaneous tissue, fascia and muscle to the right lateral ankle full-thickness ulceration with a number 3 mm dermal curette without incident. Predebridement measurement is 0.7 x 0.7 x 0.1 cm.. Postdebridement measurement is 0.8 x 0.9 x 0.2 cm. 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 Evidence of valgus contracture to the right ankle. Patient is nonambulatory and resides in wheelchair. No pain with calf pressure bilateral. Debridement Note Debridement Note Debridement Free Text: Excisional debridement down to and including subcutaneous tissue, fascia and muscle to the left below-knee amputation stump with a number 3 mm dermal curette without incident. Predebridement measurement is 0.5 x 1.8 x 3.3 cm. Postdebridement measurement is 0.6 x 2.0 x 3.6 cm. Excision debridement down to and including subcutaneous tissue, fascia and muscle to the right lateral ankle full-thickness ulceration with a number 3 mm dermal curette without incident. Predebridement measurement is 0.7 x 0.7 x 0.1 cm.. Postdebridement measurement is 0.8 x 0.9 x 0.2 cm. Post-Debridement Measurements and Additional Note: Post-Debridement Measurements/Treatment WC - Nurse 1 - General Ulcer Assessment Start: 03/16/24 09:00 Freq: Status: Active Protocol: WC.LOWEXT Activity Type Activity Date Activity User E-sign Co-sign Detail Recorded Client Recorded Date Recorded By Document 03/16/24 09:02 KW [id number] 03/16/24 09:14 KW Document 03/23/24 10:37 KW [id number] 03/23/24 10:54 KW 03/16/24 03/23/24 09:02 10:37 - Today's Visit Information Type of service Follow-up Visit Follow-up Visit (Physician/ENERGY TECHNICIAN (Physician/ENERGY TECHNICIAN ) ) Arrival Mode Wheelchair Wheelchair Accompanied by nurse nurse Patient Identification Verified (Name & Yes Yes ) Height and Weight Body Mass Index (BMI) 44.4 44.4 BMI Classification Obese Obese Vital Signs Temperature (97.8 F-99.1 F) 96.9 F L 96.7 F L Temperature Source Temporal Temporal Pulse Rate (60-100) 92 110 H Pulse Location Monitor Monitor Respiratory Rate (12-18) 18 18 Respiratory rate source Observation Observation Oxygen Delivery Method Room Air Blood Pressure (90/60-120/80) 143/67 H 166/73 H Blood Pressure Mean (mm Hg) 92 104 Source Monitor Monitor Position Sitting Sitting Blood Pressure Location Right Arm Right Forearm History Since Last Visit- (Skip if this is Patient's initial visit) Have you changed medications since your No No last visit? Any new allergies or adverse reactions No No Had a fall/change in ADL's that may No No increase risk of falls Signs or symptoms of abuse and/or No No neglect since last visit Have you been in the hospital since your No No last visit? Has dressing in place as prescribed Yes Yes Has compression in place as prescribed Yes Yes Has offloadiing in place as prescribed Yes Yes Experienced any changes in pain level or No No management Left Footwear No Footwear Right Footwear No Footwear Pain Scale: 0-10 Numeric Is Patient Pain Free? Yes Yes - Nurse 1 - General Ulcer Measurement Start: 03/16/24 09:00 Freq: Status: Active Protocol: Activity Type Activity Date Activity User E-sign Co-sign Detail Recorded Client Recorded Date Recorded By Document 03/16/24 09:02 KW [id number] 03/16/24 09:14 KW Document 03/23/24 10:37 KW [id number] 03/23/24 10:54 KW 03/16/24 03/23/24 09:02 10:37 Wound Center Nurse 1 #8 Lt stump -Current Size (cm) - Length 2 0.8 -Current Size (cm) - Width 2 2 -Current Size (cm) - Depth 1 3 -Total Square Cm 4 1.6 -Exudate Amt Small Medium -Exudate Type Serosanguineous Serosanguineous -Wound Margin Distinct, Thickened Outline Attached -Granulation Amt Medium (34-66%) Large (67-100%) -Granulation Quality Red Red -Necrosis Amt Medium (34-66%) -Necrotic Tissue Type Adherent Slough -Texture (Michell-wound Skin Appearance) Assessed, Assessed Friable -Moisture (Michell-wound Skin Appearance) Assessed Assessed, Weeping -Color (Michell-wound Skin Appearance) Assessed Assessed, Erythema -Temperature (Michell-wound Skin No Abnormality No Abnormality Appearance) (Pt Warm) (Pt Warm) -Tenderness on Palpation (Michell-wound No No Skin Appearance) -Ulcer Cleansing Soap and Water Soap and Water -Foul Odor after Cleansing No No -Anesthetic Used 5% Lidocaine 5% Lidocaine Gel Gel #4 RT LAT ANKLE -Current Size (cm) - Length 1 1 -Current Size (cm) - Width 1.3 1.3 -Current Size (cm) - Depth 0.3 0.4 -Total Square Cm 1.3 1.3 -Date of Last Picture (Recall this 03/23/24 field) -Undermining/Tunneling Yes -Undermining/Tunneling Starts (O'clock 9 ) -Undermining/Tunneling Ends (O'clock) 3 -Maximum Distance (cm) 0.6 -Exudate Amt Small Small -Exudate Type Serosanguineous Serosanguineous -Wound Margin Thickened Thickened & Rolled Under -Granulation Amt Small (1-33%) Small (1-33%) -Granulation Quality [place] -Necrosis Amt Large (67-100%) Large (67-100%) -Necrotic Tissue Type Adherent Slough Adherent Slough -Texture (Michell-wound Skin Appearance) Assessed, Assessed, Localized Edema Localized Edema -Moisture (Michell-wound Skin Appearance) Assessed Assessed -Color (Michell-wound Skin Appearance) Assessed Assessed -Temperature (Michell-wound Skin No Abnormality No Abnormality Appearance) (Pt Warm) (Pt Warm) -Tenderness on Palpation (Michell-wound No No Skin Appearance) -Ulcer Cleansing Soap and Water Soap and Water -Foul Odor after Cleansing No No -Anesthetic Used 5% Lidocaine 5% Lidocaine Gel Gel Right Calf (cm) 46 Right Ankle (cm) 25 WC - Nurse 2 - General Ulcer CM Notes Start: 03/16/24 09:00 Freq: Status: Active Protocol: Activity Type Activity Date Activity User E-sign Co-sign Detail Recorded Client Recorded Date Recorded By Document 03/16/24 09:30 SALLY [id number] 03/16/24 09:42 JF Document 03/23/24 11:02 SALLY [id number] 03/23/24 11:10 SALLY 03/16/24 03/23/24 09:30 11:02 Wound Center Nurse 2 #8 Lt stump -Time 09:32 11:03 -Correct Patient Yes Yes -Correct Side, Site, Position Yes Yes -Correct Procedure Yes Yes -Procedure Performed Yes Yes -Type of Procedure Debridement Debridement -Clinical Debridement Muscle / Fascia Muscle / Fascia -Tissue Removed Muscle,Fascia Muscle,Fascia -Post Debridement (cm) - Length 0.7 0.6 -Post Debridement (cm) - Width 1.5 2.0 -Post Debridement (cm) - Depth 4.0 3.6 -Total Square (Post) (cm) 1.05 1.20 -Area of Debridement (cm) - Length 0.7 0.6 -Area of Debridement (cm) - Width 1.5 2.0 -Total Square (Area) (cm) 1.05 1.20 -Tunneling No No -Undermining/Tunneling No No -Circular Undermining No No -Wound/Ulcer Outcome Not Healed Not Healed -Ulcer Cleansing Rinsed/ Rinsed/ Irrigated with Irrigated with Saline Saline -Foul Odor after Cleansing No No -Bioengineered Tissue No No -Bleeding Controlled with Pressure Pressure -Treatment Response Procedure Procedure Tolerated Well Tolerated Well -Offloading No No -Debridement - Subq, 1st 20sq cm No -Debridement - Muscle / Fascia, 1st Yes Yes 20sq cm #4 RT LAT ANKLE -Time 09:33 11:07 -Correct Patient Yes Yes -Correct Side, Site, Position Yes Yes -Correct Procedure Yes Yes -Procedure Performed Yes Yes -Type of Procedure Debridement Debridement -Clinical Debridement Subcutaneous Subcutaneous -Tissue Removed Subcutaneous Subcutaneous -Post Debridement (cm) - Length 0.8 0.8 -Post Debridement (cm) - Width 1.3 0.9 -Post Debridement (cm) - Depth 0.4 0.2 -Total Square (Post) (cm) 1.04 0.72 -Area of Debridement (cm) - Length 0.8 0.8 -Area of Debridement (cm) - Width 1.3 0.9 -Total Square (Area) (cm) 1.04 0.72 -Tunneling No No -Undermining/Tunneling No No -Circular Undermining No No -Wound/Ulcer Outcome Not Healed Not Healed -Ulcer Cleansing Rinsed/ Rinsed/ Irrigated with Irrigated with Saline Saline -Foul Odor after Cleansing No No -Bioengineered Tissue No No -Bleeding Controlled with Pressure Pressure -Treatment Response Procedure Procedure Tolerated Well Tolerated Well -Offloading No No -Debridement - Subq, 1st 20sq cm Yes Yes Pain Scale: 0-10 Numeric Is Patient Pain Free? Yes Yes - Nurse 3 - General Ulcer D/C NN Start: 03/16/24 09:00 Freq: Status: Active Protocol: Activity Type Activity Date Activity User E-sign Co-sign Detail Recorded Client Recorded Date Recorded By Document 03/16/24 09:52 GM [id number] 03/16/24 09:53 GM 03/16/24 09:52 Wound Care Center Nurse 3 #8 Lt stump -Ulcer Cleansing Not Cleansed -Foul Odor after Cleansing No -Primary Dressing Covered/Secured with Dry Gauze & Roll Gauze, Secured with Tape #4 RT LAT ANKLE -Ulcer Cleansing Not Cleansed -Foul Odor after Cleansing No -Primary Dressing Covered/Secured with Dry Gauze & Roll Gauze, Secured with Tape Left -Lotion applied to leg before No compression wrap -Compression Wrap Armaan Wrap Right -Compression Wrap Armaan Wrap Pain Scale: 0-10 Numeric Is Patient Pain Free? Yes WC - Visit Discharge Discharge Condition Stable Ambulatory Status Wheelchair Transportation Private Auto Assessment/Plan Assessment/Plan (1) Non-pressure chronic ulcer of other part of left lower leg with necrosis of muscle: CODE(S): L97.823 - Non-pressure chronic ulcer of other part of left lower leg with necrosis of muscle PLAN: Patient was examined and evaluated. All findings were discussed with the patient. All questions were answered to the patient's satisfaction. Excisional debridement down to and including subcutaneous tissue, fascia and muscle to the left below-knee amputation stump with a number 3 mm dermal curette without incident. Predebridement measurement is 0.5 x 1.8 x 3.3 cm. Postdebridement measurement is 0.6 x 2.0 x 3.6 cm. Excision debridement down to and including subcutaneous tissue, fascia and muscle to the right lateral ankle full-thickness ulceration with a number 3 mm dermal curette without incident. Predebridement measurement is 0.7 x 0.7 x 0.1 cm. Postdebridement measurement is 0.8 x 0.9 x 0.2 cm. Bilateral lower extremities were cleaned and patted dry. Iodoform packing was applied to the left below-knee amputation full-thickness wound Betadine soaked gauze was applied to the right lateral ankle ulceration. Dry sterile dressing was applied to both lower extremities followed by compression wrap. Patient will get daily dressing changes by wound care nurse who was present today at visit. Patient will continue to rest and elevate his bilateral lower extremity as instructed. He will continue strict blood sugar control. Order was given secondary to the patient growing Staph aureus out of the left below-knee amputation ulceration for Keflex 500 mg 3 times daily for 2 weeks. Patient will follow-up with the wound care center with Dr. Sarah in 1 week (2) Non-pressure chronic ulcer of right ankle with fat layer exposed: CODE(S): L97.312 - Non-pressure chronic ulcer of right ankle with fat layer exposed (3) Contusion of left leg: CODE(S): S80.12XA - Contusion of left lower leg, initial encounter
--- NOTE | 2024-03-24 09:30 | WC ---
PHOTO 03/23/24 RIGHT LATERAL ANKLE
--- NOTE | 2024-03-24 09:34 | WC ---
PHOTO 03/23/24 LEFT STUMP
[2024-03-30 09:42] VITALS: BP 127/55; PULSE 83; RESP 18; TEMP 35.8; BMI 44.4
--- NOTE | 2024-03-30 11:14 | PN.PCM_ITS ---
History of Present Illness Date of Service: 03/30/24 Chief Complaint: Bilateral leg wounds. History of Wound: By leg wounds. Objective Data Objective Data Vital Signs: Vital Signs Temp Pulse Resp BP O2 Del Method 96.5 F L 83 18 127/55 H Room Air 03/30/24 09:42 03/30/24 09:42 03/30/24 09:42 03/30/24 09:42 03/16/24 09:02 Oxygen Delivery Method Room Air Weight: 161.479 kg Body Mass Index (BMI) 44.4 Lab / Micro Data Micro: Microbiology 03/16/24 09:28 Ulcer, Decubitus - Other Gram Stain - Final 03/16/24 09:28 Ulcer, Decubitus - Other Wound Culture - Final Staphylococcus aureus 03/16/24 09:28 Ulcer, Decubitus - Other Anaerobic Culture - Final No anaerobic bacteria isolated. Physical Exam Narrative Vascular: DP and PT pulses are faintly palpable to the right lower extremity. CFT is brisk to the bilateral lower extremity. Neurological: Light touch intact. Protective sensation is absent. 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 Positive probe to the muscle. Full-thickness ulceration to the right lateral ankle measuring 0.7 x 1.2 x 0.1 cm. Excisional debridement down to and including subcutaneous tissue, fascia and muscle to the left below-knee amputation stump with a number 3 mm dermal curette without incident. Predebridement measurement is 1.0 x 1.5 x 2.5 cm. Postdebridement measurement is 1.2 x 1.6 x 2.8 cm. Excision debridement down to and including subcutaneous tissue to the right lateral ankle full-thickness ulceration with a number 3 mm dermal curette without incident. Predebridement measurement is 0.6 x 1.0 x 0.1 cm. Postdebridement measurement is 0.7 x 1.2 x 0.1 cm. Musculoskeletal: Evidence of valgus contracture to the right ankle. Patient is nonambulatory and resides in wheelchair. No pain with calf pressure bilateral. Debridement Note Debridement Note Debridement Free Text: Excisional debridement down to and including subcutaneous tissue, fascia and muscle to the left below-knee amputation stump with a number 3 mm dermal curette without incident. Predebridement measurement is 1.0 x 1.5 x 2.5 cm. Postdebridement measurement is 1.2 x 1.6 x 2.8 cm. Excision debridement down to and including subcutaneous tissue to the right lateral ankle full-thickness ulceration with a number 3 mm dermal curette without incident. Predebridement measurement is 0.6 x 1.0 x 0.1 cm. Postdebridement measurement is 0.7 x 1.2 x 0.1 cm. Post-Debridement Measurements and Additional Note: Post-Debridement Measurements/Treatment - Nurse 1 - General Ulcer Assessment Start: 03/16/24 09:00 Freq: Status: Active Protocol: [email or web address] Activity Type Activity Date Activity User E-sign Co-sign Detail Recorded Client Recorded Date Recorded By Document 03/16/24 09:02 KW [id number] 03/16/24 09:14 KW Document 03/23/24 10:37 KW [id number] 03/23/24 10:54 KW Document 03/30/24 09:42 RB [id number] 03/30/24 09:44 RB 03/16/24 03/23/24 03/30/24 09:02 10:37 09:42 - Today's Visit Information Type of service Follow-up Visit Follow-up Visit Follow-up Visit (Physician/DISH MACHINE OPERATOR (Physician/DISH MACHINE OPERATOR (Physician/DISH MACHINE OPERATOR ) ) ) Arrival Mode Wheelchair Wheelchair Wheelchair Transfer Assistance None Accompanied by nurse nurse Patient Identification Verified (Name & Yes Yes Yes ) Patient Requires Transmission-Based No Precautions Height and Weight Body Mass Index (BMI) 44.4 44.4 44.4 BMI Classification Obese Obese Obese Vital Signs Temperature (97.8 F-99.1 F) 96.9 F L 96.7 F L 96.5 F L Temperature Source Temporal Temporal Temporal Pulse Rate (60-100) 92 110 H 83 Pulse Location Monitor Monitor Monitor Respiratory Rate (12-18) 18 18 18 Respiratory rate source Observation Observation Observation Oxygen Delivery Method Room Air Blood Pressure (90/60-120/80) 143/67 H 166/73 H 127/55 H Blood Pressure Mean (mm Hg) 92 104 79 Source Monitor Monitor Monitor Position Sitting Sitting Semi-Fowlers Blood Pressure Location Right Arm Right Forearm Left Arm History Since Last Visit- (Skip if this is Patient's initial visit) Have you changed medications since your No No No last visit? Any new allergies or adverse reactions No No No Had a fall/change in ADL's that may No No No increase risk of falls Signs or symptoms of abuse and/or No No No neglect since last visit Have you been in the hospital since your No No No last visit? Has dressing in place as prescribed Yes Yes Yes Has compression in place as prescribed Yes Yes Yes Has offloadiing in place as prescribed Yes Yes No Experienced any changes in pain level or No No No management Left Footwear No Footwear Right Footwear No Footwear Pain Scale: 0-10 Numeric Is Patient Pain Free? Yes Yes Yes WC - Nurse 1 - General Ulcer Measurement Start: 03/16/24 09:00 Freq: Status: Active Protocol: Activity Type Activity Date Activity User E-sign Co-sign Detail Recorded Client Recorded Date Recorded By Document 03/16/24 09:02 KW [id number] 03/16/24 09:14 KW Document 03/23/24 10:37 KW [id number] 03/23/24 10:54 KW Document 03/30/24 09:42 RB [id number] 03/30/24 09:44 RB 03/16/24 03/23/24 03/30/24 09:02 10:37 09:42 Wound Center Nurse 1 #8 Lt stump -Combined with other wound No -Current Size (cm) - Length 2 0.8 1 -Current Size (cm) - Width 2 2 2 -Current Size (cm) - Depth 1 3 3 -Total Square Cm 4 1.6 2 -Tunneling No -Undermining/Tunneling No -Circular Undermining No -Exudate Amt Small Medium Medium -Exudate Type Serosanguineous Serosanguineous Serosanguineous -Wound Margin Distinct, Thickened Distinct, Outline Outline Attached Attached -Granulation Amt Medium (34-66%) Large (67-100%) Medium (34-66%) -Granulation Quality Red Red Penelope -Slough/Fibrin Yes -Necrosis Amt Medium (34-66%) Medium (34-66%) -Necrotic Tissue Type Adherent Slough Adherent Slough -Structure Exposed N/A -Texture (Michell-wound Skin Appearance) Assessed, Assessed Assessed, Friable Scarring -Moisture (Michell-wound Skin Appearance) Assessed Assessed, Assessed,Dry/ Weeping Scaly -Color (Michell-wound Skin Appearance) Assessed Assessed, Assessed Erythema -Temperature (Michell-wound Skin No Abnormality No Abnormality No Abnormality Appearance) (Pt Warm) (Pt Warm) (Pt Warm) -Tenderness on Palpation (Michell-wound No No No Skin Appearance) -Ulcer Cleansing Soap and Water Soap and Water Wound Cleanser -Foul Odor after Cleansing No No No -Anesthetic Used 5% Lidocaine 5% Lidocaine 4% Lidocaine Gel Gel Solution #4 RT LAT ANKLE -Combined with other wound No -Current Size (cm) - Length 1 1 0.7 -Current Size (cm) - Width 1.3 1.3 1 -Current Size (cm) - Depth 0.3 0.4 0.3 -Total Square Cm 1.3 1.3 0.7 -Date of Last Picture (Recall this 03/23/24 field) -Tunneling No -Undermining/Tunneling Yes No -Undermining/Tunneling Starts (O'clock 9 ) -Undermining/Tunneling Ends (O'clock) 3 -Maximum Distance (cm) 0.6 -Circular Undermining No -Exudate Amt Small Small Medium -Exudate Type Serosanguineous Serosanguineous Serosanguineous -Wound Margin Thickened Thickened & Distinct, Rolled Under Outline Attached -Granulation Amt Small (1-33%) Small (1-33%) Medium (34-66%) -Granulation Quality Penelope Penelope Penelope -Slough/Fibrin Yes -Necrosis Amt Large (67-100%) Large (67-100%) Medium (34-66%) -Necrotic Tissue Type Adherent Slough Adherent Slough Adherent Slough -Structure Exposed N/A -Texture (Michell-wound Skin Appearance) Assessed, Assessed, Assessed Localized Edema Localized Edema -Moisture (Michell-wound Skin Appearance) Assessed Assessed Assessed,Dry/ Scaly -Color (Michell-wound Skin Appearance) Assessed Assessed Assessed -Temperature (Michell-wound Skin No Abnormality No Abnormality No Abnormality Appearance) (Pt Warm) (Pt Warm) (Pt Warm) -Tenderness on Palpation (Michell-wound No No No Skin Appearance) -Ulcer Cleansing Soap and Water Soap and Water Wound Cleanser -Foul Odor after Cleansing No No No -Anesthetic Used 5% Lidocaine 5% Lidocaine 5% Lidocaine Gel Gel Gel Right Calf (cm) 46 Right Ankle (cm) 25 WC - Nurse 2 - General Ulcer CM Notes Start: 03/16/24 09:00 Freq: Status: Active Protocol: Activity Type Activity Date Activity User E-sign Co-sign Detail Recorded Client Recorded Date Recorded By Document 03/16/24 09:30 [id number] 03/16/24 09:42 JF Document 03/23/24 11:02 [id number] 03/23/24 11:10 JF Document 03/30/24 09:55 JF [id number] 03/30/24 10:02 JF 03/16/24 03/23/24 03/30/24 09:30 11:02 09:55 Wound Center Nurse 2 #8 Lt stump -Time 09:32 11:03 09:58 -Correct Patient Yes Yes Yes -Correct Side, Site, Position Yes Yes Yes -Correct Procedure Yes Yes Yes -Procedure Performed Yes Yes Yes -Type of Procedure Debridement Debridement Debridement -Clinical Debridement Muscle / Fascia Muscle / Fascia Muscle / Fascia -Tissue Removed Muscle,Fascia Muscle,Fascia Muscle -Post Debridement (cm) - Length 0.7 0.6 1.2 -Post Debridement (cm) - Width 1.5 2.0 1.6 -Post Debridement (cm) - Depth 4.0 3.6 2.8 -Total Square (Post) (cm) 1.05 1.20 1.92 -Area of Debridement (cm) - Length 0.7 0.6 1.2 -Area of Debridement (cm) - Width 1.5 2.0 1.6 -Total Square (Area) (cm) 1.05 1.20 1.92 -Tunneling No No No -Undermining/Tunneling No No No -Circular Undermining No No No -Wound/Ulcer Outcome Not Healed Not Healed Not Healed -Ulcer Cleansing Rinsed/ Rinsed/ Rinsed/ Irrigated with Irrigated with Irrigated with Saline Saline Saline -Foul Odor after Cleansing No No No -Bioengineered Tissue No No No -Bleeding Controlled with Pressure Pressure Pressure -Treatment Response Procedure Procedure Procedure Tolerated Well Tolerated Well Tolerated Well -Offloading No No No -Debridement - Subq, 1st 20sq cm No -Debridement - Muscle / Fascia, 1st Yes Yes Yes 20sq cm #4 RT LAT ANKLE -Time 09:33 11:07 09:57 -Correct Patient Yes Yes Yes -Correct Side, Site, Position Yes Yes Yes -Correct Procedure Yes Yes Yes -Procedure Performed Yes Yes Yes -Type of Procedure Debridement Debridement Debridement -Clinical Debridement Subcutaneous Subcutaneous Subcutaneous -Tissue Removed Subcutaneous Subcutaneous Subcutaneous -Post Debridement (cm) - Length 0.8 0.8 0.7 -Post Debridement (cm) - Width 1.3 0.9 1.2 -Post Debridement (cm) - Depth 0.4 0.2 0.1 -Total Square (Post) (cm) 1.04 0.72 0.84 -Area of Debridement (cm) - Length 0.8 0.8 0.7 -Area of Debridement (cm) - Width 1.3 0.9 1.2 -Total Square (Area) (cm) 1.04 0.72 0.84 -Tunneling No No No -Undermining/Tunneling No No No -Circular Undermining No No No -Wound/Ulcer Outcome Not Healed Not Healed Not Healed -Ulcer Cleansing Rinsed/ Rinsed/ Rinsed/ Irrigated with Irrigated with Irrigated with Saline Saline Saline -Foul Odor after Cleansing No No No -Bioengineered Tissue No No No -Bleeding Controlled with Pressure Pressure Pressure -Treatment Response Procedure Procedure Procedure Tolerated Well Tolerated Well Tolerated Well -Offloading No No No -Debridement - Subq, 1st 20sq cm Yes Yes Yes Pain Scale: 0-10 Numeric Is Patient Pain Free? Yes Yes Yes WC - Nurse 3 - General Ulcer D/C NN Start: 03/16/24 09:00 Freq: Status: Active Protocol: Activity Type Activity Date Activity User E-sign Co-sign Detail Recorded Client Recorded Date Recorded By Document 03/16/24 09:52 [id number] 03/16/24 09:53 Document 03/23/24 11:34 [id number] 03/23/24 11:36 Document 03/30/24 10:19 RB [id number] 03/30/24 10:20 RB 03/16/24 03/23/24 03/30/24 09:52 11:34 10:19 Wound Care Center Nurse 3 #8 Lt stump -Ulcer Cleansing Not Cleansed Rinsed/ Irrigated with Saline -Foul Odor after Cleansing No No -Primary Dressing Applied Nugauze, Iodoform 1/2in, Other -Other Dressing abd pad BETADINE GAUZE -Primary Dressing Covered/Secured with Dry Gauze & Dry Gauze & Dry Gauze,Dry Roll Gauze, Roll Gauze, Gauze & Roll Secured with Secured with Gauze,Secured Tape Tape with Tape -Other Covering ABD -Nugauze, Iodoform 1/2in 1 #4 RT LAT ANKLE -Ulcer Cleansing Not Cleansed Not Cleansed -Foul Odor after Cleansing No No -Primary Dressing Applied Other Promogran Rafaela Matter -Other Dressing betadine gauze and abd -Primary Dressing Covered/Secured with Dry Gauze & Dry Gauze & Dry Gauze,Dry Roll Gauze, Roll Gauze, Gauze & Roll Secured with Secured with Gauze,Secured Tape Tape with Tape -Promogran Rafaela Matter 1 Left -Lotion applied to leg before No Yes compression wrap -Compression Wrap Armaan Wrap Armaan Wrap -Other ARMAAN Right -Lotion applied to leg before Yes compression wrap -Compression Wrap Armaan Wrap Armaan Wrap -Other ARMAAN Treatment Response Procedure Tolerated Well Pain Scale: 0-10 Numeric Is Patient Pain Free? Yes Yes Yes WC - Visit Discharge Discharge Condition Stable Stable Stable Ambulatory Status Wheelchair Wheelchair Wheelchair Transportation Private [facility] Medication Reconcilliation completed & No provided to patient/care provider Clinical Summary of Care Provided Yes Assessment/Plan Assessment/Plan (1) Non-pressure chronic ulcer of other part of left lower leg with necrosis of muscle: CODE(S): L97.823 - Non-pressure chronic ulcer of other part of left lower leg with necrosis of muscle PLAN: Patient was examined and evaluated. All findings were discussed with the patient. All questions were answered to the patient's satisfaction. Excisional debridement down to and including subcutaneous tissue, fascia and muscle to the left below-knee amputation stump with a number 3 mm dermal curette without incident. Predebridement measurement is 1.0 x 1.5 x 2.5 cm. Postdebridement measurement is 1.2 x 1.6 x 2.8 cm. Excision debridement down to and including subcutaneous tissue to the right lateral ankle full-thickness ulceration with a number 3 mm dermal curette without incident. Predebridement measurement is 0.6 x 1.0 x 0.1 cm. Postdebridement measurement is 0.7 x 1.2 x 0.1 cm. Bilateral lower extremities were cleaned and patted dry. Iodoform packing was applied to left lower extremity below-knee amputation full-thickness wound covered by dry sterile dressing and Armaan wrap. Collagen was applied to the full- thickness wound to right ankle dry sterile dressing and compression wrap. O rders were given for routine dressing changes to the bilateral lower extremity. Patient will continue to rest and elevate his bilateral lower extremity as instructed. He will continue strict blood sugar control. Patient will continue Keflex as prescribed. Patient will follow-up with the wound care center with Dr. Sarah in 1 week (2) Non-pressure chronic ulcer of right ankle with fat layer exposed: CODE(S): L97.312 - Non-pressure chronic ulcer of right ankle with fat layer exposed
[2024-04-06 09:13] VITALS: BP 123/98; PULSE 91; RESP 18; TEMP 36; BMI 44.4
--- NOTE | 2024-04-06 09:30 | PCM.WC.PN ---
History of Present Illness Date of Service: 04/06/24 Chief Complaint: Bilateral leg wounds. History of Wound: By leg wounds. Subjective Subjective Mr. Olivares is a 78-year-old diabetic male presenting to clinic today for follow-up evaluation of bilateral leg and stump ulceration. Patient has been getting dressing changes at his facility. He notices great improvement to his wounds. Blood sugar under control. He is nonweightbearing with wheelchair. He is elevating as instructed. Taking antibiotic as written. Denies trauma. Denies constitutional symptoms. No other pedal complaints at this time. Objective Data Objective Data Vital Signs: Vital Signs Temp Pulse Resp BP O2 Del Method 96.8 F L 91 18 123/98 H Room Air 04/06/24 09:13 04/06/24 09:13 04/06/24 09:13 04/06/24 09:13 04/06/24 09:13 Oxygen Delivery Method Room Air Weight: 161.479 kg Body Mass Index (BMI) 44.4 Lab / Micro Data Micro: Microbiology 03/16/24 09:28 Ulcer, Decubitus - Other Gram Stain - Final 03/16/24 09:28 Ulcer, Decubitus - Other Wound Culture - Final Staphylococcus aureus 03/16/24 09:28 Ulcer, Decubitus - Other Anaerobic Culture - Final No anaerobic bacteria isolated. Physical Exam Narrative Vascular: DP and PT pulses are faintly palpable to the right lower extremity. CFT is brisk to the bilateral lower extremity. Neurological: Light touch intact. Protective sensation is absent. 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 Positive probe to the muscle. Full-thickness ulceration to the right lateral ankle measuring 1.0 x 1.3 x 0.1 cm. Excisional debridement down to and including subcutaneous tissue, fascia and muscle to the left below-knee amputation stump with a number 3 mm dermal curette without incident. Predebridement measurement is 0.6 x 1.3 x 2.0 cm. Postdebridement measurement is 0.7 x 1.4 x 2.5 cm. EpiCord 2.0 x 2.5 cm was applied to the left full-thickness ulceration with 100% use. First application. The graft site was free and clear of any infection. The wound/skin graft substitute was dressed with nonadherent bandage secured in place with Steri-Strips followed by bolster dressing as well as Armaan wrap. Excisional debridement down to and including subcutaneous tissue to the right lateral ankle full-thickness ulceration with a number 3 mm dermal curette without incident. Predebridement measurement is 1.0 x 1.3 x 0.1 cm. Postdebridement measurement is 0.8 x 1.1 x 0.1 cm. Musculoskeletal: Evidence of valgus contracture to the right ankle. Patient is nonambulatory and resides in wheelchair. No pain with calf pressure bilateral. Debridement Note Debridement Note Debridement Free Text: Excisional debridement down to and including subcutaneous tissue, fascia and muscle to the left below-knee amputation stump with a number 3 mm dermal curette without incident. Predebridement measurement is 0.6 x 1.3 x 2.0 cm. Postdebridement measurement is 0.7 x 1.4 x 2.5 cm. EpiCord 2.0 x 2.5 cm was applied to the left full-thickness ulceration with 100% use. First application. The graft site was free and clear of any infection. The wound/skin graft substitute was dressed with nonadherent bandage secured in place with Steri-Strips followed by bolster dressing as well as Armaan wrap. Excisional debridement down to and including subcutaneous tissue to the right lateral ankle full-thickness ulceration with a number 3 mm dermal curette without incident. Predebridement measurement is 1.0 x 1.3 x 0.1 cm. Postdebridement measurement is 0.8 x 1.1 x 0.1 cm. Post-Debridement Measurements and Additional Note: Post-Debridement Measurements/Treatment WC - Nurse 1 - General Ulcer Assessment Start: 03/16/24 09:00 Freq: Status: Active Protocol: [email or web address] Activity Type Activity Date Activity User E-sign Co-sign Detail Recorded Client Recorded Date Recorded By Document 03/16/24 09:02 KW [id number] 03/16/24 09:14 KW Document 03/23/24 10:37 KW [id number] 03/23/24 10:54 KW Document 03/30/24 09:42 RB [id number] 03/30/24 09:44 RB Document 04/06/24 09:13 KW [id number] 04/06/24 09:17 KW 10/08/0803/23/24 03/30/24 09:02 10:37 09:42 WC - Today's Visit Information Type of service Follow-up Visit Follow-up Visit Follow-up Visit (Physician/ACCESS TECH (Physician/ACCESS TECH (Physician/ACCESS TECH ) ) ) Arrival Mode Wheelchair Wheelchair Wheelchair Transfer Assistance None Accompanied by nurse nurse Patient Identification Verified (Name & Yes Yes Yes ) Patient Requires Transmission-Based No Precautions Height and Weight Body Mass Index (BMI) 44.4 44.4 44.4 BMI Classification Obese Obese Obese Vital Signs Temperature (97.8 F-99.1 F) 96.9 F L 96.7 F L 96.5 F L Temperature Source Temporal Temporal Temporal Pulse Rate (60-100) 92 110 H 83 Pulse Location Monitor Monitor Monitor Respiratory Rate (12-18) 18 18 18 Respiratory rate source Observation Observation Observation Oxygen Delivery Method Room Air Blood Pressure (90/60-120/80) 143/67 H 166/73 H 127/55 H Blood Pressure Mean (mm Hg) 92 104 79 Source Monitor Monitor Monitor Position Sitting Sitting Semi-Fowlers Blood Pressure Location Right Arm Right Forearm Left Arm History Since Last Visit- (Skip if this is Patient's initial visit) Have you changed medications since your No No No last visit? Any new allergies or adverse reactions No No No Had a fall/change in ADL's that may No No No increase risk of falls Signs or symptoms of abuse and/or No No No neglect since last visit Have you been in the hospital since your No No No last visit? Has dressing in place as prescribed Yes Yes Yes Has compression in place as prescribed Yes Yes Yes Has offloadiing in place as prescribed Yes Yes No Experienced any changes in pain level or No No No management Left Footwear No Footwear Right Footwear No Footwear Pain Scale: 0-10 Numeric Is Patient Pain Free? Yes Yes Yes Left stump -Description -Intensity -Alleviating Factors/Interventions 04/06/24 09:13 WC - Today's Visit Information Type of service Follow-up Visit (Physician/ACCESS TECH ) Arrival Mode Wheelchair Transfer Assistance Accompanied by nurse Patient Identification Verified (Name & Yes ) Patient Requires Transmission-Based Precautions Height and Weight Body Mass Index (BMI) 44.4 BMI Classification Obese Vital Signs Temperature (97.8 F-99.1 F) 96.8 F L Temperature Source Temporal Pulse Rate (60-100) 91 Pulse Location Monitor Respiratory Rate (12-18) 18 Respiratory rate source Observation Oxygen Delivery Method Room Air Blood Pressure (90/60-120/80) 123/98 H Blood Pressure Mean (mm Hg) 106 Source Monitor Position Semi-Fowlers Blood Pressure Location Left Arm History Since Last Visit- (Skip if this is Patient's initial visit) Have you changed medications since your No last visit? Any new allergies or adverse reactions No Had a fall/change in ADL's that may No increase risk of falls Signs or symptoms of abuse and/or No neglect since last visit Have you been in the hospital since your No last visit? Has dressing in place as prescribed Yes Has compression in place as prescribed Yes Has offloadiing in place as prescribed Yes Experienced any changes in pain level or No management Left Footwear No Footwear Right Footwear No Footwear Pain Scale: 0-10 Numeric Is Patient Pain Free? Yes Left stump -Description Aching -Intensity 3 -Alleviating Factors/Interventions Inactivity/ Resting WC - Nurse 1 - General Ulcer Measurement Start: 03/16/24 09:00 Freq: Status: Active Protocol: Activity Type Activity Date Activity User E-sign Co-sign Detail Recorded Client Recorded Date Recorded By Document 03/16/24 09:02 KW [id number] 03/16/24 09:14 KW Document 03/23/24 10:37 KW [id number] 03/23/24 10:54 KW Document 03/30/24 09:42 RB [id number] 03/30/24 09:44 RB Document 04/06/24 09:13 KW [id number] 04/06/24 09:17 KW 03/16/24 03/23/24 03/30/24 09:02 10:37 09:42 Wound Center Nurse 1 #8 Lt stump -Combined with other wound No -Current Size (cm) - Length 2 0.8 1 -Current Size (cm) - Width 2 2 2 -Current Size (cm) - Depth 1 3 3 -Total Square Cm 4 1.6 2 -Date of Last Picture (Recall this field) -Tunneling No -Undermining/Tunneling No -Circular Undermining No -Exudate Amt Small Medium Medium -Exudate Type Serosanguineous Serosanguineous Serosanguineous -Wound Margin Distinct, Thickened Distinct, Outline Outline Attached Attached -Granulation Amt Medium (34-66%) Large (67-100%) Medium (34-66%) -Granulation Quality Red Red [place] -Slough/Fibrin Yes -Necrosis Amt Medium (34-66%) Medium (34-66%) -Necrotic Tissue Type Adherent Slough Adherent Slough -Structure Exposed N/A -Texture (Michell-wound Skin Appearance) Assessed, Assessed Assessed, Friable Scarring -Moisture (Michell-wound Skin Appearance) Assessed Assessed, Assessed,Dry/ Weeping Scaly -Color (Michell-wound Skin Appearance) Assessed Assessed, Assessed Erythema -Temperature (Michell-wound Skin No Abnormality No Abnormality No Abnormality Appearance) (Pt Warm) (Pt Warm) (Pt Warm) -Tenderness on Palpation (Michell-wound No No No Skin Appearance) -Ulcer Cleansing Soap and Water Soap and Water Wound Cleanser -Foul Odor after Cleansing No No No -Anesthetic Used 5% Lidocaine 5% Lidocaine 4% Lidocaine Gel Gel Solution #4 RT LAT ANKLE -Combined with other wound No -Current Size (cm) - Length 1 1 0.7 -Current Size (cm) - Width 1.3 1.3 1 -Current Size (cm) - Depth 0.3 0.4 0.3 -Total Square Cm 1.3 1.3 0.7 -Date of Last Picture (Recall this 03/23/24 field) -Tunneling No -Undermining/Tunneling Yes No -Undermining/Tunneling Starts (O'clock 9 ) -Undermining/Tunneling Ends (O'clock) 3 -Maximum Distance (cm) 0.6 -Circular Undermining No -Exudate Amt Small Small Medium -Exudate Type Serosanguineous Serosanguineous Serosanguineous -Wound Margin Thickened Thickened & Distinct, Rolled Under Outline Attached -Granulation Amt Small (1-33%) Small (1-33%) Medium (34-66%) -Granulation Quality [place] -Slough/Fibrin Yes -Necrosis Amt Large (67-100%) Large (67-100%) Medium (34-66%) -Necrotic Tissue Type Adherent Slough Adherent Slough Adherent Slough -Structure Exposed N/A -Texture (Michell-wound Skin Appearance) Assessed, Assessed, Assessed Localized Edema Localized Edema -Moisture (Michell-wound Skin Appearance) Assessed Assessed Assessed,Dry/ Scaly -Color (Michell-wound Skin Appearance) Assessed Assessed Assessed -Temperature (Michell-wound Skin No Abnormality No Abnormality No Abnormality Appearance) (Pt Warm) (Pt Warm) (Pt Warm) -Tenderness on Palpation (Michell-wound No No No Skin Appearance) -Ulcer Cleansing Soap and Water Soap and Water Wound Cleanser -Foul Odor after Cleansing No No No -Anesthetic Used 5% Lidocaine 5% Lidocaine 5% Lidocaine Gel Gel Gel Right Calf (cm) 46 Right Ankle (cm) 25 04/06/24 09:13 Wound Center Nurse 1 #8 Lt stump -Combined with other wound -Current Size (cm) - Length 0.3 -Current Size (cm) - Width 0.8 -Current Size (cm) - Depth 1.7 -Total Square Cm 0.24 -Date of Last Picture (Recall this 04/06/24 field) -Tunneling -Undermining/Tunneling -Circular Undermining -Exudate Amt Medium -Exudate Type Serosanguineous -Wound Margin Distinct, Outline Attached -Granulation Amt Large (67-100%) -Granulation Quality Red -Slough/Fibrin -Necrosis Amt -Necrotic Tissue Type -Structure Exposed -Texture (Michell-wound Skin Appearance) Assessed -Moisture (Michell-wound Skin Appearance) Assessed -Color (Michell-wound Skin Appearance) Assessed -Temperature (Michell-wound Skin No Abnormality Appearance) (Pt Warm) -Tenderness on Palpation (Michell-wound No Skin Appearance) -Ulcer Cleansing Rinsed/ Irrigated with Saline -Foul Odor after Cleansing No -Anesthetic Used 5% Lidocaine Gel #4 RT LAT ANKLE -Combined with other wound -Current Size (cm) - Length 0.9 -Current Size (cm) - Width 1.2 -Current Size (cm) - Depth 0.2 -Total Square Cm 1.08 -Date of Last Picture (Recall this 04/06/24 field) -Tunneling -Undermining/Tunneling -Undermining/Tunneling Starts (O'clock ) -Undermining/Tunneling Ends (O'clock) -Maximum Distance (cm) -Circular Undermining -Exudate Amt Small -Exudate Type Serosanguineous -Wound Margin Distinct, Outline Attached -Granulation Amt Small (1-33%) -Granulation Quality [place] -Slough/Fibrin -Necrosis Amt Large (67-100%) -Necrotic Tissue Type Adherent Slough -Structure Exposed -Texture (Michell-wound Skin Appearance) Assessed -Moisture (Michell-wound Skin Appearance) Assessed -Color (Michell-wound Skin Appearance) Assessed -Temperature (Michell-wound Skin No Abnormality Appearance) (Pt Warm) -Tenderness on Palpation (Michell-wound No Skin Appearance) -Ulcer Cleansing Rinsed/ Irrigated with Saline -Foul Odor after Cleansing -Anesthetic Used 5% Lidocaine Gel Right Calf (cm) Right Ankle (cm) WC - Nurse 2 - General Ulcer CM Notes Start: 03/16/24 09:00 Freq: Status: Active Protocol: Activity Type Activity Date Activity User E-sign Co-sign Detail Recorded Client Recorded Date Recorded By Document 03/16/24 09:30 [id number] 03/16/24 09:42 Document 03/23/24 11:02 [id number] 03/23/24 11:10 Document 03/30/24 09:55 [id number] 03/30/24 10:02 Document 04/06/24 09:27 [id number] 04/06/24 09:30 03/16/24 03/23/24 03/30/24 09:30 11:02 09:55 Wound Center Nurse 2 #8 Lt stump -Time 09:32 11:03 09:58 -Correct Patient Yes Yes Yes -Correct Side, Site, Position Yes Yes Yes -Correct Procedure Yes Yes Yes -Procedure Performed Yes Yes Yes -Type of Procedure Debridement Debridement Debridement -Clinical Debridement Muscle / Fascia Muscle / Fascia Muscle / Fascia -Tissue Removed Muscle,Fascia Muscle,Fascia Muscle -Post Debridement (cm) - Length 0.7 0.6 1.2 -Post Debridement (cm) - Width 1.5 2.0 1.6 -Post Debridement (cm) - Depth 4.0 3.6 2.8 -Total Square (Post) (cm) 1.05 1.20 1.92 -Area of Debridement (cm) - Length 0.7 0.6 1.2 -Area of Debridement (cm) - Width 1.5 2.0 1.6 -Total Square (Area) (cm) 1.05 1.20 1.92 -Tunneling No No No -Undermining/Tunneling No No No -Circular Undermining No No No -Wound/Ulcer Outcome Not Healed Not Healed Not Healed -Ulcer Cleansing Rinsed/ Rinsed/ Rinsed/ Irrigated with Irrigated with Irrigated with Saline Saline Saline -Foul Odor after Cleansing No No No -Bioengineered Tissue No No No -Type of Bioengineered Tissue -Expiration Date -Product Lot Number -Percent Used -Lot number of Saline Used -Bleeding Controlled with Pressure Pressure Pressure -Treatment Response Procedure Procedure Procedure Tolerated Well Tolerated Well Tolerated Well -Offloading No No No -Debridement - Subq, 1st 20sq cm No -Debridement - Muscle / Fascia, 1st Yes Yes Yes 20sq cm -Apply Skin Sub - 1st 25 sq cm - Legs -Epicord (per sq cm) #4 RT LAT ANKLE -Time 09:33 11:07 09:57 -Correct Patient Yes Yes Yes -Correct Side, Site, Position Yes Yes Yes -Correct Procedure Yes Yes Yes -Procedure Performed Yes Yes Yes -Type of Procedure Debridement Debridement Debridement -Clinical Debridement Subcutaneous Subcutaneous Subcutaneous -Tissue Removed Subcutaneous Subcutaneous Subcutaneous -Post Debridement (cm) - Length 0.8 0.8 0.7 -Post Debridement (cm) - Width 1.3 0.9 1.2 -Post Debridement (cm) - Depth 0.4 0.2 0.1 -Total Square (Post) (cm) 1.04 0.72 0.84 -Area of Debridement (cm) - Length 0.8 0.8 0.7 -Area of Debridement (cm) - Width 1.3 0.9 1.2 -Total Square (Area) (cm) 1.04 0.72 0.84 -Tunneling No No No -Undermining/Tunneling No No No -Circular Undermining No No No -Wound/Ulcer Outcome Not Healed Not Healed Not Healed -Ulcer Cleansing Rinsed/ Rinsed/ Rinsed/ Irrigated with Irrigated with Irrigated with Saline Saline Saline -Foul Odor after Cleansing No No No -Bioengineered Tissue No No No -Bleeding Controlled with Pressure Pressure Pressure -Treatment Response Procedure Procedure Procedure Tolerated Well Tolerated Well Tolerated Well -Offloading No No No -Debridement - Subq, 1st 20sq cm Yes Yes Yes Pain Scale: 0-10 Numeric Is Patient Pain Free? Yes Yes Yes 04/06/24 09:27 Wound Center Nurse 2 #8 Lt stump -Time 09:27 -Correct Patient Yes -Correct Side, Site, Position Yes -Correct Procedure Yes -Procedure Performed Yes -Type of Procedure Debridement -Clinical Debridement Muscle / Fascia -Tissue Removed Muscle,Fascia -Post Debridement (cm) - Length 0.7 -Post Debridement (cm) - Width 1.4 -Post Debridement (cm) - Depth 2.5 -Total Square (Post) (cm) 0.98 -Area of Debridement (cm) - Length 0.7 -Area of Debridement (cm) - Width 1.4 -Total Square (Area) (cm) 0.98 -Tunneling No -Undermining/Tunneling No -Circular Undermining No -Wound/Ulcer Outcome Not Healed -Ulcer Cleansing Rinsed/ Irrigated with Saline -Foul Odor after Cleansing No -Bioengineered Tissue Yes -Type of Bioengineered Tissue Epicord -Expiration Date 08/13/28 -Product Lot Number [id number] -Percent Used 100 -Lot number of Saline Used [id number] -Bleeding Controlled with Pressure -Treatment Response Procedure Tolerated Well -Offloading No -Debridement - Subq, 1st 20sq cm -Debridement - Muscle / Fascia, 1st No 20sq cm -Apply Skin Sub - 1st 25 sq cm - Legs 1 -Epicord (per sq cm) 6 #4 RT LAT ANKLE -Time 09:29 -Correct Patient Yes -Correct Side, Site, Position Yes -Correct Procedure Yes -Procedure Performed Yes -Type of Procedure Debridement -Clinical Debridement Subcutaneous -Tissue Removed Subcutaneous -Post Debridement (cm) - Length 1.0 -Post Debridement (cm) - Width 1.3 -Post Debridement (cm) - Depth 0.1 -Total Square (Post) (cm) 1.30 -Area of Debridement (cm) - Length 1.0 -Area of Debridement (cm) - Width 1.3 -Total Square (Area) (cm) 1.30 -Tunneling No -Undermining/Tunneling No -Circular Undermining No -Wound/Ulcer Outcome Not Healed -Ulcer Cleansing Rinsed/ Irrigated with Saline -Foul Odor after Cleansing No -Bioengineered Tissue No -Bleeding Controlled with Pressure -Treatment Response Procedure Tolerated Well -Offloading No -Debridement - Subq, 1st 20sq cm Yes Pain Scale: 0-10 Numeric Is Patient Pain Free? Yes WC - Nurse 3 - General Ulcer D/C NN Start: 03/16/24 09:00 Freq: Status: Active Protocol: Activity Type Activity Date Activity User E-sign Co-sign Detail Recorded Client Recorded Date Recorded By Document 03/16/24 09:52 [id number] 03/16/24 09:53 GM Document 03/23/24 11:34 GM [id number] 03/23/24 11:36 GM Document 03/30/24 10:19 RB [id number] 03/30/24 10:20 RB 03/16/24 03/23/24 03/30/24 09:52 11:34 10:19 Wound Care Center Nurse 3 #8 Lt stump -Ulcer Cleansing Not Cleansed Rinsed/ Irrigated with Saline -Foul Odor after Cleansing No No -Primary Dressing Applied Nugauze, Iodoform 1/2in, Other -Other Dressing abd pad BETADINE GAUZE -Primary Dressing Covered/Secured with Dry Gauze & Dry Gauze & Dry Gauze,Dry Roll Gauze, Roll Gauze, Gauze & Roll Secured with Secured with Gauze,Secured Tape Tape with Tape -Other Covering ABD -Nugauze, Iodoform 1/2in 1 #4 RT LAT ANKLE -Ulcer Cleansing Not Cleansed Not Cleansed -Foul Odor after Cleansing No No -Primary Dressing Applied Other Promogran Rafaela Matter -Other Dressing betadine gauze and abd -Primary Dressing Covered/Secured with Dry Gauze & Dry Gauze & Dry Gauze,Dry Roll Gauze, Roll Gauze, Gauze & Roll Secured with Secured with Gauze,Secured Tape Tape with Tape -Promogran Rafaela Matter 1 Left -Lotion applied to leg before No Yes compression wrap -Compression Wrap Armaan Wrap Armaan Wrap -Other ARMAAN Right -Lotion applied to leg before Yes compression wrap -Compression Wrap Armaan Wrap Armaan Wrap -Other ARMAAN Treatment Response Procedure Tolerated Well Pain Scale: 0-10 Numeric Is Patient Pain Free? Yes Yes Yes WC - Visit Discharge Discharge Condition Stable Stable Stable Ambulatory Status Wheelchair Wheelchair Wheelchair Transportation Private Auto Private Auto [place] Medication Reconcilliation completed & No provided to patient/care provider Clinical Summary of Care Provided Yes Assessment/Plan Assessment/Plan (1) Non-pressure chronic ulcer of other part of left lower leg with necrosis of muscle: CODE(S): L97.823 - Non-pressure chronic ulcer of other part of left lower leg with necrosis of muscle PLAN: Patient was examined and evaluated. All findings were discussed with the patient. All questions were answered to the patient's satisfaction. Excisional debridement down to and including subcutaneous tissue, fascia and muscle to the left below-knee amputation stump with a number 3 mm dermal curette without incident. Predebridement measurement is 0.6 x 1.3 x 2.0 cm. Postdebridement measurement is 0.7 x 1.4 x 2.5 cm. EpiCord 2.0 x 2.5 cm was applied to the left full-thickness ulceration with 100% use. First application. The graft site was free and clear of any infection. The wound/skin graft substitute was dressed with nonadherent bandage secured in place with Steri-Strips followed by bolster dressing as well as Armaan wrap. Excisional debridement down to and including subcutaneous tissue to the right lateral ankle full-thickness ulceration with a number 3 mm dermal curette without incident. Predebridement measurement is 1.0 x 1.3 x 0.1 cm. Postdebridement measurement is 0.8 x 1.1 x 0.1 cm. The bilateral lower extremities were dressed with dry sterile dressing and Armaan wrap. Dressings will be left clean dry and intact until follow-up. Patient continue strict blood sugar control. Patient will continue to rest and elevate his bilateral lower extremity to decrease dependent edema. Patient will continue antibiotic as written. Patient will follow-up with the wound care center with Dr. Sarah in 1 week (2) Non-pressure chronic ulcer of right ankle with fat layer exposed: CODE(S): L97.312 - Non-pressure chronic ulcer of right ankle with fat layer exposed
[2024-04-13 08:53] VITALS: BP 126/71; PULSE 97; RESP 16; TEMP 35.9; BMI 44.4
--- NOTE | 2024-04-13 10:05 | PN.PCM_ITS ---
History of Present Illness Date of Service: 04/13/24 Chief Complaint: Bilateral leg wounds. History of Wound: By leg wounds. Subjective Subjective Mr. Olivares is a 78-year-old diabetic male presenting to wound care center today for follow-up evaluation of full-thickness wounds to bilateral lower extremity. Patient is been compliant with his dressing changes and has left his graft clean dry and intact. He is elevating when able. Blood sugar well-controlled. Denies trauma. Denies constitutional symptoms. No other pedal complaints at this time. Objective Data Objective Data Vital Signs: Vital Signs Temp Pulse Resp BP O2 Del Method 96.6 F L 97 16 126/71 H Room Air 04/13/24 08:53 04/13/24 08:53 04/13/24 08:53 04/13/24 08:53 04/13/24 08:53 Oxygen Delivery Method Room Air Weight: 161.479 kg Body Mass Index (BMI) 44.4 Lab / Micro Data Micro: Microbiology 03/16/24 09:28 Ulcer, Decubitus - Other Gram Stain - Final 03/16/24 09:28 Ulcer, Decubitus - Other Wound Culture - Final Staphylococcus aureus 03/16/24 09:28 Ulcer, Decubitus - Other Anaerobic Culture - Final No anaerobic bacteria isolated. Physical Exam Narrative Vascular: DP and PT pulses are faintly palpable to the right lower extremity. CFT is brisk to the bilateral lower extremity. Neurological: Light touch intact. Protective sensation is absent. 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 Full-thickness ulceration to the right lateral ankle measuring 1.0 x 1.6 x 0.1 cm. Excisional debridement down to and including subcutaneous tissue, fascia to the left below-knee amputation stump with a number 3 mm dermal curette without incident. Predebridement measurement is 0.3 x 1.2 x 1.5 cm. Postdebridement measurement is 0.4 x 1.3 x 1.8 cm. EpiCord 2.0 x 2.5 cm was applied to the left full-thickness ulceration with 100% use. Second application. The graft site was free and clear of any infection. The wound/skin graft substitute was dressed with nonadherent bandage secured in place with Steri-Strips followed by bolster dressing as well as Armaan wrap. Excisional debridement down to and including subcutaneous tissue to the right lateral ankle full-thickness ulceration with a number 3 mm dermal curette witho ut incident. Predebridement measurement is 0.9 x 1.4 x 0.1 cm postdebridement measurement is 1.0 x 1.6 x 0.1 cm. Musculoskeletal: Evidence of valgus contracture to the right ankle. Patient is nonambulatory and resides in wheelchair. No pain with calf pressure bilateral. Debridement Note Debridement Note Debridement Free Text: Excisional debridement down to and including subcutaneous tissue, fascia to the left below-knee amputation stump with a number 3 mm dermal curette without incident. Predebridement measurement is 0.3 x 1.2 x 1.5 cm. Postdebridement measurement is 0.4 x 1.3 x 1.8 cm. EpiCord 2.0 x 2.5 cm was applied to the left full-thickness ulceration with 100% use. Second application. The graft site was free and clear of any infection. The wound/skin graft substitute was dressed with nonadherent bandage secured in place with Steri-Strips followed by bolster dressing as well as Armaan wrap. Excisional debridement down to and including subcutaneous tissue to the right lateral ankle full-thickness ulceration with a number 3 mm dermal curette without incident. Predebridement measurement is 0.9 x 1.4 x 0.1 cm postdebridement measurement is 1.0 x 1.6 x 0.1 cm. Post-Debridement Measurements and Additional Note: Post-Debridement Measurements/Treatment WC - Nurse 1 - General Ulcer Assessment Start: 03/16/24 09:00 Freq: Status: Active Protocol: FABIENEN Activity Type Activity Date Activity User E-sign Co-sign Detail Recorded Client Recorded Date Recorded By Document 03/16/24 09:02 KW [id number] 03/16/24 09:14 KW Document 03/23/24 10:37 KW [id number] 03/23/24 10:54 KW Document 03/30/24 09:42 RB [id number] 03/30/24 09:44 RB Document 04/06/24 09:13 KW [id number] 04/06/24 09:17 KW Document 04/13/24 08:53 GM [id number] 04/13/24 09:04 GM 03/16/24 03/23/24 03/30/24 09:02 10:37 09:42 WC - Today's Visit Information Type of service Follow-up Visit Follow-up Visit Follow-up Visit (Physician/LIQUOR STORE MANAGER (Physician/LIQUOR STORE MANAGER (Physician/LIQUOR STORE MANAGER ) ) ) Arrival Mode Wheelchair Wheelchair Wheelchair Transfer Assistance None Accompanied by nurse nurse Patient Identification Verified (Name & Yes Yes Yes ) Patient Requires Transmission-Based No Precautions Height and Weight Body Mass Index (BMI) 44.4 44.4 44.4 BMI Classification Obese Obese Obese Vital Signs Temperature (97.8 F-99.1 F) 96.9 F L 96.7 F L 96.5 F L Temperature Source Temporal Temporal Temporal Pulse Rate (60-100) 92 110 H 83 Pulse Location Monitor Monitor Monitor Respiratory Rate (12-18) 18 18 18 Respiratory rate source Observation Observation Observation Oxygen Delivery Method Room Air Blood Pressure (90/60-120/80) 143/67 H 166/73 H 127/55 H Blood Pressure Mean (mm Hg) 92 104 79 Source Monitor Monitor Monitor Position Sitting Sitting Semi-Fowlers Blood Pressure Location Right Arm Right Forearm Left Arm History Since Last Visit- (Skip if this is Patient's initial visit) Have you changed medications since your No No No last visit? Any new allergies or adverse reactions No No No Had a fall/change in ADL's that may No No No increase risk of falls Signs or symptoms of abuse and/or No No No neglect since last visit Have you been in the hospital since your No No No last visit? Has dressing in place as prescribed Yes Yes Yes Has compression in place as prescribed Yes Yes Yes Has offloadiing in place as prescribed Yes Yes No Experienced any changes in pain level or No No No management Left Footwear No Footwear Right Footwear No Footwear Pain Scale: 0-10 Numeric Is Patient Pain Free? Yes Yes Yes Left stump -Description -Intensity -Alleviating Factors/Interventions 04/06/24 04/13/24 09:13 08:53 WC - Today's Visit Information Type of service Follow-up Visit Follow-up Visit (Physician/LIQUOR STORE MANAGER (Physician/LIQUOR STORE MANAGER ) ) Arrival Mode Wheelchair Wheelchair Transfer Assistance None Accompanied by nurse [facility]it[facility] staff Patient Identification Verified (Name & Yes Yes ) Patient Requires Transmission-Based Precautions Height and Weight Body Mass Index (BMI) 44.4 44.4 BMI Classification Obese Obese Vital Signs Temperature (97.8 F-99.1 F) 96.8 F L 96.6 F L Temperature Source Temporal Temporal Pulse Rate (60-100) 91 97 Pulse Location Monitor Monitor Respiratory Rate (12-18) 18 16 Respiratory rate source Observation Observation Oxygen Delivery Method Room Air Room Air Blood Pressure (90/60-120/80) 123/98 H 126/71 H Blood Pressure Mean (mm Hg) 106 89 Source Monitor Monitor Position Semi-Fowlers Sitting Blood Pressure Location Left Arm Right Arm History Since Last Visit- (Skip if this is Patient's initial visit) Have you changed medications since your No No last visit? Any new allergies or adverse reactions No No Had a fall/change in ADL's that may No No increase risk of falls Signs or symptoms of abuse and/or No No neglect since last visit Have you been in the hospital since your No No last visit? Has dressing in place as prescribed Yes Yes Has compression in place as prescribed Yes Yes Has offloadiing in place as prescribed Yes Yes Experienced any changes in pain level or No No management Left Footwear No Footwear Right Footwear No Footwear Pain Scale: 0-10 Numeric Is Patient Pain Free? Yes Yes Left stump -Description Aching -Intensity 3 -Alleviating Factors/Interventions Inactivity/ Resting WC - Nurse 1 - General Ulcer Measurement Start: 03/16/24 09:00 Freq: Status: Active Protocol: Activity Type Activity Date Activity User E-sign Co-sign Detail Recorded Client Recorded Date Recorded By Document 03/16/24 09:02 KW [id number] 03/16/24 09:14 KW Document 03/23/24 10:37 KW [id number] 03/23/24 10:54 KW Document 03/30/24 09:42 RB [id number] 03/30/24 09:44 RB Document 04/06/24 09:13 KW [id number] 04/06/24 09:17 KW Document 04/13/24 08:53 GM [id number] 04/13/24 09:04 GM 03/16/24 03/23/24 03/30/24 09:02 10:37 09:42 Wound Center Nurse 1 #8 Lt stump -Combined with other wound No -Current Size (cm) - Length 2 0.8 1 -Current Size (cm) - Width 2 2 2 -Current Size (cm) - Depth 1 3 3 -Total Square Cm 4 1.6 2 -Date of Last Picture (Recall this field) -Photo Taken -Epithelialization -Tunneling No -Undermining/Tunneling No -Circular Undermining No -Exudate Amt Small Medium Medium -Exudate Type Serosanguineous Serosanguineous Serosanguineous -Wound Margin Distinct, Thickened Distinct, Outline Outline Attached Attached -Granulation Amt Medium (34-66%) Large (67-100%) Medium (34-66%) -Granulation Quality Red Red Hagerman -Slough/Fibrin Yes -Necrosis Amt Medium (34-66%) Medium (34-66%) -Necrotic Tissue Type Adherent Slough Adherent Slough -Structure Exposed N/A -Texture (Michell-wound Skin Appearance) Assessed, Assessed Assessed, Friable Scarring -Moisture (Michell-wound Skin Appearance) Assessed Assessed, Assessed,Dry/ Weeping Scaly -Color (Michell-wound Skin Appearance) Assessed Assessed, Assessed Erythema -Temperature (Michell-wound Skin No Abnormality No Abnormality No Abnormality Appearance) (Pt Warm) (Pt Warm) (Pt Warm) -Tenderness on Palpation (Michell-wound No No No Skin Appearance) -Ulcer Cleansing Soap and Water Soap and Water Wound Cleanser -Foul Odor after Cleansing No No No -Anesthetic Used 5% Lidocaine 5% Lidocaine 4% Lidocaine Gel Gel Solution #4 RT LAT ANKLE -Combined with other wound No -Current Size (cm) - Length 1 1 0.7 -Current Size (cm) - Width 1.3 1.3 1 -Current Size (cm) - Depth 0.3 0.4 0.3 -Total Square Cm 1.3 1.3 0.7 -Date of Last Picture (Recall this 03/23/24 field) -Photo Taken -Epithelialization -Tunneling No -Undermining/Tunneling Yes No -Undermining/Tunneling Starts (O'clock 9 ) -Undermining/Tunneling Ends (O'clock) 3 -Maximum Distance (cm) 0.6 -Circular Undermining No -Exudate Amt Small Small Medium -Exudate Type Serosanguineous Serosanguineous Serosanguineous -Wound Margin Thickened Thickened & Distinct, Rolled Under Outline Attached -Granulation Amt Small (1-33%) Small (1-33%) Medium (34-66%) -Granulation Quality Hagerman Hagerman Hagerman -Slough/Fibrin Yes -Necrosis Amt Large (67-100%) Large (67-100%) Medium (34-66%) -Necrotic Tissue Type Adherent Slough Adherent Slough Adherent Slough -Structure Exposed N/A -Texture (Michell-wound Skin Appearance) Assessed, Assessed, Assessed Localized Edema Localized Edema -Moisture (Michell-wound Skin Appearance) Assessed Assessed Assessed,Dry/ Scaly -Color (Michell-wound Skin Appearance) Assessed Assessed Assessed -Temperature (Michell-wound Skin No Abnormality No Abnormality No Abnormality Appearance) (Pt Warm) (Pt Warm) (Pt Warm) -Tenderness on Palpation (Michell-wound No No No Skin Appearance) -Ulcer Cleansing Soap and Water Soap and Water Wound Cleanser -Foul Odor after Cleansing No No No -Anesthetic Used 5% Lidocaine 5% Lidocaine 5% Lidocaine Gel Gel Gel Right Calf (cm) 46 Right Ankle (cm) 25 04/06/24 04/13/24 09:13 08:53 Wound Center Nurse 1 #8 Lt stump -Combined with other wound No -Current Size (cm) - Length 0.3 0.3 -Current Size (cm) - Width 0.8 0.1 -Current Size (cm) - Depth 1.7 0.6 -Total Square Cm 0.24 0.03 -Date of Last Picture (Recall this 04/06/24 04/13/24 field) -Photo Taken Yes -Epithelialization Small 1-33% -Tunneling No -Undermining/Tunneling No -Circular Undermining No -Exudate Amt Medium Small -Exudate Type Serosanguineous Yellow/Green -Wound Margin Distinct, Thickened & Outline Rolled Under Attached -Granulation Amt Large (67-100%) Medium (34-66%) -Granulation Quality Red Red -Slough/Fibrin No -Necrosis Amt -Necrotic Tissue Type -Structure Exposed -Texture (Michell-wound Skin Appearance) Assessed Assessed -Moisture (Michell-wound Skin Appearance) Assessed Assessed -Color (Michell-wound Skin Appearance) Assessed Assessed -Temperature (Michell-wound Skin No Abnormality No Abnormality Appearance) (Pt Warm) (Pt Warm) -Tenderness on Palpation (Michell-wound No Skin Appearance) -Ulcer Cleansing Rinsed/ Soap and Water Irrigated with Saline -Foul Odor after Cleansing No No -Anesthetic Used 5% Lidocaine 5% Lidocaine Gel Gel #4 RT LAT ANKLE -Combined with other wound -Current Size (cm) - Length 0.9 1.0 -Current Size (cm) - Width 1.2 1.3 -Current Size (cm) - Depth 0.2 0.1 -Total Square Cm 1.08 1.30 -Date of Last Picture (Recall this 04/06/24 04/13/24 field) -Photo Taken Yes -Epithelialization Small 1-33% -Tunneling No -Undermining/Tunneling Yes -Undermining/Tunneling Starts (O'clock 9 ) -Undermining/Tunneling Ends (O'clock) 3 -Maximum Distance (cm) 0.2 -Circular Undermining No -Exudate Amt Small Medium -Exudate Type Serosanguineous Yellow/Green -Wound Margin Distinct, Distinct, Outline Outline Attached Attached -Granulation Amt Small (1-33%) None Present (0 %) -Granulation Quality Hagerman Red -Slough/Fibrin No -Necrosis Amt Large (67-100%) -Necrotic Tissue Type Adherent Slough -Structure Exposed -Texture (Michell-wound Skin Appearance) Assessed Assessed -Moisture (Michell-wound Skin Appearance) Assessed Assessed -Color (Michell-wound Skin Appearance) Assessed Assessed -Temperature (Michell-wound Skin No Abnormality No Abnormality Appearance) (Pt Warm) (Pt Warm) -Tenderness on Palpation (Michell-wound No Yes Skin Appearance) -Ulcer Cleansing Rinsed/ Soap and Water Irrigated with Saline -Foul Odor after Cleansing No -Anesthetic Used 5% Lidocaine 5% Lidocaine Gel Gel Right Calf (cm) Right Ankle (cm) WC - Nurse 2 - General Ulcer CM Notes Start: 03/16/24 09:00 Freq: Status: Active Protocol: Activity Type Activity Date Activity User E-sign Co-sign Detail Recorded Client Recorded Date Recorded By Document 03/16/24 09:30 SALLY [id number] 03/16/24 09:42 JF Document 03/23/24 11:02 SALLY [id number] 03/23/24 11:10 JF Document 03/30/24 09:55 SALLY [id number] 03/30/24 10:02 JF Document 04/06/24 09:27 JF [id number] 04/06/24 09:30 JF Document 04/13/24 09:18 SALLY [id number] 04/13/24 09:21 JF 03/16/24 03/23/24 03/30/24 09:30 11:02 09:55 Wound Center Nurse 2 #8 Lt stump -Time 09:32 11:03 09:58 -Correct Patient Yes Yes Yes -Correct Side, Site, Position Yes Yes Yes -Correct Procedure Yes Yes Yes -Procedure Performed Yes Yes Yes -Type of Procedure Debridement Debridement Debridement -Clinical Debridement Muscle / Fascia Muscle / Fascia Muscle / Fascia -Tissue Removed Muscle,Fascia Muscle,Fascia Muscle -Post Debridement (cm) - Length 0.7 0.6 1.2 -Post Debridement (cm) - Width 1.5 2.0 1.6 -Post Debridement (cm) - Depth 4.0 3.6 2.8 -Total Square (Post) (cm) 1.05 1.20 1.92 -Area of Debridement (cm) - Length 0.7 0.6 1.2 -Area of Debridement (cm) - Width 1.5 2.0 1.6 -Total Square (Area) (cm) 1.05 1.20 1.92 -Tunneling No No No -Undermining/Tunneling No No No -Circular Undermining No No No -Wound/Ulcer Outcome Not Healed Not Healed Not Healed -Ulcer Cleansing Rinsed/ Rinsed/ Rinsed/ Irrigated with Irrigated with Irrigated with Saline Saline Saline -Foul Odor after Cleansing No No No -Bioengineered Tissue No No No -Type of Bioengineered Tissue -Expiration Date -Product Lot Number -Percent Used -Lot number of Saline Used -Bleeding Controlled with Pressure Pressure Pressure -Treatment Response Procedure Procedure Procedure Tolerated Well Tolerated Well Tolerated Well -Offloading No No No -Assistive Device(s) -Debridement - Subq, 1st 20sq cm No -Debridement - Muscle / Fascia, 1st Yes Yes Yes 20sq cm -Apply Skin Sub - 1st 25 sq cm - Legs -Epicord (per sq cm) #4 RT LAT ANKLE -Time 09:33 11:07 09:57 -Correct Patient Yes Yes Yes -Correct Side, Site, Position Yes Yes Yes -Correct Procedure Yes Yes Yes -Procedure Performed Yes Yes Yes -Type of Procedure Debridement Debridement Debridement -Clinical Debridement Subcutaneous Subcutaneous Subcutaneous -Tissue Removed Subcutaneous Subcutaneous Subcutaneous -Post Debridement (cm) - Length 0.8 0.8 0.7 -Post Debridement (cm) - Width 1.3 0.9 1.2 -Post Debridement (cm) - Depth 0.4 0.2 0.1 -Total Square (Post) (cm) 1.04 0.72 0.84 -Area of Debridement (cm) - Length 0.8 0.8 0.7 -Area of Debridement (cm) - Width 1.3 0.9 1.2 -Total Square (Area) (cm) 1.04 0.72 0.84 -Tunneling No No No -Undermining/Tunneling No No No -Circular Undermining No No No -Wound/Ulcer Outcome Not Healed Not Healed Not Healed -Ulcer Cleansing Rinsed/ Rinsed/ Rinsed/ Irrigated with Irrigated with Irrigated with Saline Saline Saline -Foul Odor after Cleansing No No No -Bioengineered Tissue No No No -Bleeding Controlled with Pressure Pressure Pressure -Treatment Response Procedure Procedure Procedure Tolerated Well Tolerated Well Tolerated Well -Offloading No No No -Debridement - Subq, 1st 20sq cm Yes Yes Yes Pain Scale: 0-10 Numeric Is Patient Pain Free? Yes Yes Yes 04/06/24 04/13/24 09:27 09:18 Wound Center Nurse 2 #8 Lt stump -Time 09 09:18 -Correct Patient Yes Yes -Correct Side, Site, Position Yes Yes -Correct Procedure Yes Yes -Procedure Performed Yes Yes -Type of Procedure Debridement Debridement -Clinical Debridement Muscle / Fascia Muscle / Fascia -Tissue Removed Muscle,Fascia Muscle,Fascia -Post Debridement (cm) - Length 0.7 0.4 -Post Debridement (cm) - Width 1.4 1.3 -Post Debridement (cm) - Depth 2.5 1.8 -Total Square (Post) (cm) 0.98 0.52 -Area of Debridement (cm) - Length 0.7 0.4 -Area of Debridement (cm) - Width 1.4 1.3 -Total Square (Area) (cm) 0.98 0.52 -Tunneling No No -Undermining/Tunneling No No -Circular Undermining No No -Wound/Ulcer Outcome Not Healed Not Healed -Ulcer Cleansing Rinsed/ Rinsed/ Irrigated with Irrigated with Saline Saline -Foul Odor after Cleansing No No -Bioengineered Tissue Yes Yes -Type of Bioengineered Tissue Epicord Epicord -Expiration Date 08/13/28 08/13/28 -Product Lot Number [id number] -Percent Used 100 100 -Lot number of Saline Used [id number] -Bleeding Controlled with Pressure Pressure -Treatment Response Procedure Procedure Tolerated Well Tolerated Well -Offloading No No -Assistive Device(s) Wheelchair -Debridement - Subq, 1st 20sq cm No -Debridement - Muscle / Fascia, 1st No No 20sq cm -Apply Skin Sub - 1st 25 sq cm - Legs 1 1 -Epicord (per sq cm) 6 6 #4 RT LAT ANKLE -Time 09:29 09:19 -Correct Patient Yes Yes -Correct Side, Site, Position Yes Yes -Correct Procedure Yes Yes -Procedure Performed Yes Yes -Type of Procedure Debridement Debridement -Clinical Debridement Subcutaneous Subcutaneous -Tissue Removed Subcutaneous Subcutaneous -Post Debridement (cm) - Length 1.0 1.0 -Post Debridement (cm) - Width 1.3 1.6 -Post Debridement (cm) - Depth 0.1 0.1 -Total Square (Post) (cm) 1.30 1.60 -Area of Debridement (cm) - Length 1.0 1.0 -Area of Debridement (cm) - Width 1.3 1.6 -Total Square (Area) (cm) 1.30 1.60 -Tunneling No No -Undermining/Tunneling No No -Circular Undermining No No -Wound/Ulcer Outcome Not Healed Not Healed -Ulcer Cleansing Rinsed/ Rinsed/ Irrigated with Irrigated with Saline Saline -Foul Odor after Cleansing No No -Bioengineered Tissue No No -Bleeding Controlled with Pressure Pressure -Treatment Response Procedure Procedure Tolerated Well Tolerated Well -Offloading No No -Debridement - Subq, 1st 20sq cm Yes Yes Pain Scale: 0-10 Numeric Is Patient Pain Free? Yes Yes WC - Nurse 3 - General Ulcer D/C NN Start: 03/16/24 09:00 Freq: Status: Active Protocol: Activity Type Activity Date Activity User E-sign Co-sign Detail Recorded Client Recorded Date Recorded By Document 03/16/24 09:52 GM [id number] 03/16/24 09:53 GM Document 03/23/24 11:34 GM [id number] 03/23/24 11:36 GM Document 03/30/24 10:19 RB [id number] 03/30/24 10:20 RB Document 04/06/24 09:32 CP [id number] 04/06/24 09:33 CP Document 04/13/24 09:25 GM [id number] 04/13/24 09:25 GM 03/16/24 03/23/24 03/30/24 09:52 11:34 10:19 Wound Care Center Nurse 3 #8 Lt stump -Ulcer Cleansing Not Cleansed Rinsed/ Irrigated with Saline -Foul Odor after Cleansing No No -Primary Dressing Applied Nugauze, Iodoform 1/2in, Other -Other Dressing abd pad BETADINE GAUZE -Primary Dressing Covered/Secured with Dry Gauze & Dry Gauze & Dry Gauze,Dry Roll Gauze, Roll Gauze, Gauze & Roll Secured with Secured with Gauze,Secured Tape Tape with Tape -Other Covering ABD -Nugauze, Iodoform 1/2in 1 #4 RT LAT ANKLE -Ulcer Cleansing Not Cleansed Not Cleansed -Foul Odor after Cleansing No No -Primary Dressing Applied Other Promogran Rafaela Matter -Other Dressing betadine gauze and abd -Primary Dressing Covered/Secured with Dry Gauze & Dry Gauze & Dry Gauze,Dry Roll Gauze, Roll Gauze, Gauze & Roll Secured with Secured with Gauze,Secured Tape Tape with Tape -Promogran Rafaela Matter 1 Left -Lotion applied to leg before No Yes compression wrap -Compression Wrap Armaan Wrap Armaan Wrap -Other ARMAAN Right -Lotion applied to leg before Yes compression wrap -Compression Wrap Armaan Wrap Armaan Wrap -Other ARMAAN Treatment Response Procedure Tolerated Well Pain Scale: 0-10 Numeric Is Patient Pain Free? Yes Yes Yes WC - Visit Discharge Discharge Condition Stable Stable Stable Ambulatory Status Wheelchair Wheelchair Wheelchair Transportation Private Auto Private [facility] Medication Reconcilliation completed & No provided to patient/care provider Clinical Summary of Care Provided Yes Facility Type Orders Sent 04/06/24 04/13/24 09:32 09:25 Wound Care Center Nurse 3 #8 Lt stump -Ulcer Cleansing Not Cleansed -Foul Odor after Cleansing No -Primary Dressing Applied -Other Dressing -Primary Dressing Covered/Secured with Dry Gauze & Dry Gauze & Roll Gauze Roll Gauze, Secured with Tape -Other Covering -Nugauze, Iodoform 1/2in #4 RT LAT ANKLE -Ulcer Cleansing Not Cleansed -Foul Odor after Cleansing No -Primary Dressing Applied -Other Dressing -Primary Dressing Covered/Secured with Dry Gauze & Dry Gauze & Roll Gauze Roll Gauze, Secured with Tape -Promogran Rafaela Matter Left -Lotion applied to leg before No compression wrap -Compression Wrap Armaan Wrap Armaan Wrap -Other Right -Lotion applied to leg before compression wrap -Compression Wrap Armaan Wrap Armaan Wrap -Other Treatment Response Pain Scale: 0-10 Numeric Is Patient Pain Free? Yes Yes WC - Visit Discharge Discharge Condition Stable Stable Ambulatory Status Wheelchair Wheelchair Transportation Private Auto Private Auto Medication Reconcilliation completed & provided to patient/care provider Clinical Summary of Care Provided Yes Facility Type Correction Care Facility Orders Sent Yes Assessment/Plan Assessment/Plan (1) Non-pressure chronic ulcer of right ankle with fat layer exposed: CODE(S): L97.312 - Non-pressure chronic ulcer of right ankle with fat layer exposed PLAN: Patient was examined and evaluated. All findings were discussed with the patient. All questions were answered to the patient's satisfaction. Excisional debridement down to and including subcutaneous tissue, fascia to the left below-knee amputation stump with a number 3 mm dermal curette without incident. Predebridement measurement is 0.3 x 1.2 x 1.5 cm. Postdebridement measurement is 0.4 x 1.3 x 1.8 cm. EpiCord 2.0 x 2.5 cm was applied to the left full-thickness ulceration with 100% use. Second application. The graft site was free and clear of any infection. The wound/skin graft substitute was dressed with nonadherent bandage secured in place with Steri-Strips followed by bolster dressing as well as Armaan wrap. Excisional debridement down to and including subcutaneous tissue to the right lateral ankle full-thickness ulceration with a number 3 mm dermal curette without incident. Predebridement measurement is 0.9 x 1.4 x 0.1 cm postdebridement measurement is 1.0 x 1.6 x 0.1 cm. The bilateral lower extremities were dressed with dry sterile dressing and Armaan wrap. Dressings will be left clean dry and intact until follow-up. Patient continue strict blood sugar control. Patient will continue to rest and elevate his bilateral lower extremity to decrease dependent edema. Patient will follow-up with Dr. Durand in 1 week. Patient will follow-up with the wound care center with Dr. Sarah in 2 week (2) Non-pressure chronic ulcer of other part of left lower leg with fat layer exposed: CODE(S): L97.822 - Non-pressure chronic ulcer of other part of left lower leg with fat layer exposed (3) Non-pressure chronic ulcer of other part of right lower leg with fat layer exposed: CODE(S): L97.812 - Non-pressure chronic ulcer of other part of right lower leg with fat layer exposed
--- NOTE | 2024-04-14 09:41 | WC ---
PHOTO RIGHT ANKLE 04/13/24
--- NOTE | 2024-04-14 09:47 | WC ---
PHOTO 04/13/24 LEFT STUMP
== END 2024-04-14 23:59 | disposition home or self-care (01) ==
LOC: WC 09:00
PROVIDERS: PCP Internal Medicine Infectious Disease; Referring Provider Internal Medicine Infectious Disease; Visit Provider Podiatrist Foot & Ankle Surgery
DX: L97.823 Non-pressure chronic ulcer of other part of left lower leg with necrosis of muscle (principal); L97.312 Non-pressure chronic ulcer of right ankle with fat layer exposed; Z89.512 Acquired absence of left leg below knee; S80.12XA Contusion of left lower leg, initial encounter
CPT/HCPCS: 11042; 11043; 15271; 87070; 87075; 87077; 87186; 87205; Q4187

== ENCOUNTER 2024-05-11 08:30 | Outpatient (RCR) | payer MEDICARE, MEDICAID, SELFPAY ==
[2024-04-15 00:44] VITALS: BP 84/34; PULSE 114; RESP 18; TEMP 35.9; BMI 44.4
[2024-04-21 08:18] VITALS: BP 138/68; PULSE 88; RESP 18; TEMP 35.6; BMI 44.4
--- NOTE | 2024-04-21 08:33 | PCM.WC.PN ---
History of Present Illness Date of Service: 04/21/24 Chief Complaint: Bilateral leg wounds. History of Wound: By leg wounds. Subjective Subjective Patient is a 78-year-old male who presents to the wound care center today for follow-up of bilateral lower extremity ulcerations. Grafting product remains in place to the left lower extremity and he has been changing outer dressing as needed. Changing right lower extremity dressing daily. States that he continues to elevate when he is able to do so. He does state his blood sugar continues to be well-controlled. He denies constitutional symptoms. Denies further complaints. Objective Data Objective Data Vital Signs: Vital Signs Temp Pulse Resp BP 96.7 F L 114 H 18 84/34 L 04/15/24 00:44 04/15/24 00:44 04/15/24 00:44 04/15/24 00:44 Weight: 161.479 kg Body Mass Index (BMI) 44.4 Physical Exam Const alert, oriented x3 and no apparent distress General Appearance: cooperative HEENT normocephalic Eyes General Eye: normal appearance of both eyes Neck General: normal visual inspection Lymph Lymphatic: no lymphadenopathy noted and no lymphedema noted Resp normal respiratory effort Cardio regular rate and regular rhythm Extremity Extremity Narrative: Right lower extremity: Vascular: DP and PT pulses are faintly palpable. CFT is brisk to the lower extremity. Neurologic: Light touch sensation intact. Protective sensation is absent. Musculoskeletal: There is evidence of valgus contracture to the right ankle. Decreased range of motion of the ankle joint in dorsiflexion with knee extended without pain or crepitus. Negative Homans' sign. Negative Javier sign. Patient is nonambulatory and is assisted by wheelchair. Dermatologic: Full-thickness ulceration lateral malleoli with healthy granular layer. No signs of infection. 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 No signs of infection. Skin skin turgor normal Neuro moves all extremities Debridement Note Debridement Note Wound debrided: Right lateral ankle Laterality: Right Wound Grade/Stage: Bustamante stage I Type of Debridement: Excisional debridement Anesthesia Used: 5% Lidocaine Gel Depth: Down to and including healthy tissue and in the subcutaneous layer Percentage of wound debrided: 100 Instrument Used: 5mm curette Tissue Removed: Fibrous, devitalized subcutaneous, biofilm, slough Severity: Fat Layer Exposed Amount of bleeding with debridement: Mild Bleeding Controlled with: Compression and gauze Patient tolerated procedure: Patient tolerated procedure well Additional Wound Wound debrided: Left lower extremity BKA stump Laterality: Left Wound Grade/Stage: Bustamante stage I Type of Debridement: Excisional debridement Anesthesia Used: 5% Lidocaine Gel Depth: Down to and including healthy tissue and in the subcutaneous layer Percentage of wound debrided: 100 Instrument Used: 5mm curette Tissue Removed: Fibrous, devitalized subcutaneous, biofilm, slough Severity: Fat Layer Exposed Amount of bleeding with debridement: Mild Bleeding Controlled with: Compression and gauze Patient tolerated procedure: Patient tolerated procedure well Assessment/Plan Assessment/Plan (1) Non-pressure chronic ulcer of right ankle with fat layer exposed: CODE(S): L97.312 - Non-pressure chronic ulcer of right ankle with fat layer exposed (2) Non-pressure chronic ulcer of other part of left lower leg with fat layer exposed: CODE(S): L97.822 - Non-pressure chronic ulcer of other part of left lower leg with fat layer exposed PLAN: Plan Patient seen and evaluated Patient is seen as courtesy visit today on behalf of Dr. Sarah who is out of clinic today. Predebridement measurement: Left lower extremity 0.4 cm x 0.8 cm x 0.7 cm; right lower extremity 0.6 cm x 1.4 cm x 0.2 cm Ulceration to the left lower extremity and right lower extremity were debrided as noted in the clinical panel above. Postdebridement measurement left lower extremity 0.5 cm x 0.9 cm x 0.7 cm and right lower extremity 0.7 cm x 1.5 cm x 0.2 cm. Epi cord # 3 applied to left lower extremity and moistened with saline and dressed with Adaptic touch anchored with Steri-Strips. No signs of infection to graft site. Bolster dressing applied as well as Armaan wrap to the left lower extremity. Right lower extremity dressed with dry sterile dressing. Discussed continued elevation of the lower extremities to aid in edema control He will continue to follow proper diabetic diet with maintenance of glycemic level to ensure optimal healing status. Discussed nursing may change left lower extremity dressing as needed and is to leave the graft intact. Left lower extremity to remain clean, dry, and intact and utilize cast bag when showering to remain compliant. Patient will return to the wound care center in 1 week for continued care of bilateral lower extremity ulcerations with Dr. Sarah.
[2024-04-27 08:31] VITALS: BP 140/79; PULSE 84; RESP 18; TEMP 36.2; BMI 44.4
--- NOTE | 2024-04-27 09:15 | PN.PCM_ITS ---
History of Present Illness Date of Service: 04/27/24 Chief Complaint: Bilateral leg wounds. History of Wound: By leg wounds. Subjective Subjective Mr. Olivares is a 78-year-old diabetic male presenting to wound care center today for follow-up evaluation of full-thickness wounds to bilateral lower extremity. Patient is been compliant with his dressing changes and has left his graft clean dry and intact. He is elevating when able. Blood sugar well-controlled. Denies trauma. Denies constitutional symptoms. No other pedal complaints at this time. Objective Data Objective Data Vital Signs: Vital Signs Temp Pulse Resp BP O2 Del Method 97.2 F L 84 18 140/79 H Room Air 04/27/24 08:31 04/27/24 08:31 04/27/24 08:31 04/27/24 08:31 04/27/24 08:31 Oxygen Delivery Method Room Air Weight: 161.479 kg Body Mass Index (BMI) 44.4 Physical Exam Narrative Vascular: DP and PT pulses are faintly palpable to the right lower extremity. CFT is brisk to the bilateral lower extremity. Neurological: Light touch intact. Protective sensation is absent. Dermatological: Full-thickness wound to the left below-knee amputation stump measures 0.1 x 0.1 x 0.1 cm. Full-thickness ulceration to the right lateral ankle measuring 0.5 x 1.2 x 0.1 cm. Excisional debridement down to and including subcutaneous tissue of the left below-knee amputation full-thickness wound of the left lower extremity with a number 3 mm dermal curette without incident. Predebridement measurement was callus. Post debridement measurement 0.1 x 0.1 x 0.1 cm. EpiFix 18 mm disc was applied to the left full-thickness ulceration with 100% use. Fourth application. The graft site was free and clear of any infection. The wound/skin graft substitute was dressed with nonadherent bandage secured in place with Steri-Strips followed by bolster dressing as well as Armaan wrap. Excisional debridement down to and including subcutaneous tissue to the right lateral ankle full-thickness ulceration with a number 3 mm dermal curette without incident. Predebridement measurement is 0.3 x 0.9 x 0.1 cm. Postdebridement measurement is 0.5 x 1.2 x 0.1 cm. Musculoskeletal: Evidence of valgus contracture to the right ankle. Patient is nonambulatory and resides in wheelchair. No pain with calf pressure bilateral. Const alert, oriented x3 and no apparent distress General Appearance: cooperative HEENT normocephalic Eyes General Eye: normal appearance of both eyes Neck General: normal visual inspection Lymph Lymphatic: no lymphadenopathy noted and no lymphedema noted Resp normal respiratory effort Cardio regular rate and regular rhythm Extremity Extremity Narrative: Right lower extremity: Vascular: DP and PT pulses are faintly palpable. CFT is brisk to the lower extremity. Neurologic: Light touch sensation intact. Protective sensation is absent. Musculoskeletal: There is evidence of valgus contracture to the right ankle. Decreased range of motion of the ankle joint in dorsiflexion with knee extended without pain or crepitus. Negative Homans' sign. Negative Javier sign. Patient is nonambulatory and is assisted by wheelchair. Dermatologic: Full-thickness ulceration lateral malleoli with healthy granular layer. No signs of infection. 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 No signs of infection. Skin skin turgor normal Neuro moves all extremities Debridement Note Debridement Note Debridement Free Text: Excisional debridement down to and including subcutaneous tissue of the left below-knee amputation full-thickness wound of the left lower extremity with a number 3 mm dermal curette without incident. Predebridement measurement was callus. Post debridement measurement 0.1 x 0.1 x 0.1 cm. EpiFix 18 mm disc was applied to the left full-thickness ulceration with 100% use. Fourth application. The graft site was free and clear of any infection. The wound/skin graft substitute was dressed with nonadherent bandage secured in place with Steri-Strips followed by bolster dressing as well as Armaan wrap. Excisional debridement down to and including subcutaneous tissue to the right lateral ankle full-thickness ulceration with a number 3 mm dermal curette without incident. Predebridement measurement is 0.3 x 0.9 x 0.1 cm. Postdebrid ement measurement is 0.5 x 1.2 x 0.1 cm. Post-Debridement Measurements and Additional Note: Post-Debridement Measurements/Treatment JOANA - Nurse 1 - General Ulcer Assessment Start: 04/21/24 08:18 Freq: Status: Active Protocol: LOWEXT Activity Type Activity Date Activity User E-sign Co-sign Detail Recorded Client Recorded Date Recorded By Document 04/21/24 08:18 KW [id number] 04/21/24 08:36 KW Document 04/27/24 08:31 KW [id number] 04/27/24 08:33 KW 04/21/24 04/27/24 08:18 08:31 - Today's Visit Information Type of service Follow-up Visit Follow-up Visit (Physician/LOAN CONSULTANT (Physician/LOAN CONSULTANT ) ) Arrival Mode Wheelchair Ambulatory Transfer Assistance None Accompanied by nurse Patient Identification Verified (Name & Yes Yes ) Height and Weight Body Mass Index (BMI) 44.4 44.4 BMI Classification Obese Obese Vital Signs Temperature (97.8 F-99.1 F) 96.1 F L 97.2 F L Temperature Source Temporal Temporal Pulse Rate (60-100) 88 84 Pulse Location Monitor Monitor Respiratory Rate (12-18) 18 18 Respiratory rate source Observation Observation Oxygen Delivery Method Room Air Blood Pressure (90/60-120/80) 138/68 H 140/79 H Blood Pressure Mean (mm Hg) 91 99 Source Monitor Monitor Position Semi-Fowlers Sitting Blood Pressure Location Left Arm Left Arm History Since Last Visit- (Skip if this is Patient's initial visit) Have you changed medications since your No No last visit? Any new allergies or adverse reactions No No Had a fall/change in ADL's that may No No increase risk of falls Signs or symptoms of abuse and/or No No neglect since last visit Have you been in the hospital since your No last visit? Has dressing in place as prescribed Yes Yes Has compression in place as prescribed Yes Yes Has offloadiing in place as prescribed Yes Yes Experienced any changes in pain level or No No management Left Footwear No Footwear Right Footwear No Footwear Pain Scale: 0-10 Numeric Is Patient Pain Free? Yes Yes - Nurse 1 - General Ulcer Measurement Start: 04/21/24 08:18 Freq: Status: Active Protocol: Activity Type Activity Date Activity User E-sign Co-sign Detail Recorded Client Recorded Date Recorded By Document 04/21/24 08:18 KW [id number] 04/21/24 08:36 KW Document 04/27/24 08:31 KW [id number] 04/27/24 08:33 KW 04/21/24 04/27/24 08:18 08:31 Wound Center Nurse 1 #8 Lt stump -Current Size (cm) - Length 0.1 0.1 -Current Size (cm) - Width 0.3 0.3 -Current Size (cm) - Depth 0.2 0.1 -Total Square Cm 0.03 0.03 -Date of Last Picture (Recall this 04/27/24 field) -Photo Taken Yes -Epithelialization Small 1-33% -Tunneling No -Undermining/Tunneling No -Circular Undermining No -Exudate Amt Small None Present -Exudate Type Serosanguineous -Wound Margin Distinct, Thickened & Outline Rolled Under Attached -Granulation Amt Small (1-33%) -Granulation Quality [place] -Necrosis Amt Small (1-33%) -Necrotic Tissue Type Adherent Slough -Structure Exposed N/A -Texture (Michell-wound Skin Appearance) Scarring Assessed -Moisture (Michell-wound Skin Appearance) No Abnormality -Color (Michell-wound Skin Appearance) Hemosiderin Assessed Staining -Temperature (Michell-wound Skin No Abnormality No Abnormality Appearance) (Pt Warm) (Pt Warm) -Tenderness on Palpation (Michell-wound No Skin Appearance) -Ulcer Cleansing Soap and Water Soap and Water -Foul Odor after Cleansing No No -Anesthetic Used 5% Lidocaine 5% Lidocaine Gel Gel #4 RT LAT ANKLE -Current Size (cm) - Length 0.1 0.1 -Current Size (cm) - Width 0.1 0.1 -Current Size (cm) - Depth 0.1 0.1 -Total Square Cm 0.01 0.01 -Date of Last Picture (Recall this 04/27/24 field) -Photo Taken Yes Yes -Exudate Amt Medium -Exudate Type Serosanguineous -Wound Margin Thickened Distinct, Outline Attached -Granulation Amt None Present (0 %) -Necrosis Amt Small (1-33%) -Necrotic Tissue Type Eschar -Structure Exposed N/A -Texture (Michell-wound Skin Appearance) Scarring Assessed -Moisture (Michell-wound Skin Appearance) Dry/Scaly Assessed -Color (Michell-wound Skin Appearance) Hemosiderin Assessed Staining -Temperature (Michell-wound Skin No Abnormality No Abnormality Appearance) (Pt Warm) (Pt Warm) -Tenderness on Palpation (Michell-wound No Skin Appearance) -Ulcer Cleansing Soap and Water Soap and Water -Foul Odor after Cleansing No No -Anesthetic Used 5% Lidocaine 5% Lidocaine Gel Gel WC - Nurse 2 - General Ulcer CM Notes Start: 04/21/24 08:18 Freq: Status: Active Protocol: Activity Type Activity Date Activity User E-sign Co-sign Detail Recorded Client Recorded Date Recorded By Document 04/21/24 08:50 [facility] [id number] 04/21/24 09:01 [facility] Document 04/27/24 08:43 [id number] 04/27/24 08:49 04/21/24 04/27/24 08:50 08:43 Wound Center Nurse 2 #8 Lt stump -Time 08:55 -Correct Patient Yes No -Correct Side, Site, Position Yes No -Correct Procedure Yes No -Procedure Performed Yes No -Type of Procedure Debridement -Clinical Debridement Subcutaneous -Tissue Removed Subcutaneous -Post Debridement (cm) - Length 0.5 0 -Post Debridement (cm) - Width 0.9 0 -Post Debridement (cm) - Depth 0.1 0 -Total Square (Post) (cm) 0.45 0 -Area of Debridement (cm) - Length 0.5 0 -Area of Debridement (cm) - Width 0.9 0 -Total Square (Area) (cm) 0.45 0 -Tunneling No -Undermining/Tunneling No -Circular Undermining No -Wound/Ulcer Outcome Not Healed Healed- Epithelialized -Ulcer Cleansing Rinsed/ Irrigated with Saline -Foul Odor after Cleansing No -Bioengineered Tissue No -Expiration Date 08/13/28 -Product Lot Number [id number] -Percent Used 100 -Lot number of Saline Used [id number] -Bleeding Controlled with Pressure -Treatment Response Procedure Tolerated Well -Debridement - Subq, 1st 20sq cm No -Apply Skin Sub - 1st 25 sq cm - Legs 1 -Epicord (per sq cm) 6 #4 RT LAT ANKLE -Time 08:56 08:43 -Correct Patient Yes Yes -Correct Side, Site, Position Yes Yes -Correct Procedure Yes Yes -Procedure Performed Yes Yes -Type of Procedure Debridement Debridement -Clinical Debridement Subcutaneous Subcutaneous -Tissue Removed Subcutaneous Subcutaneous -Post Debridement (cm) - Length 0.7 0.5 -Post Debridement (cm) - Width 1.5 1.2 -Post Debridement (cm) - Depth 0.2 0.1 -Total Square (Post) (cm) 1.05 0.60 -Area of Debridement (cm) - Length 0.7 0.5 -Area of Debridement (cm) - Width 1.5 1.2 -Total Square (Area) (cm) 1.05 0.60 -Tunneling No No -Undermining/Tunneling No No -Circular Undermining No No -Wound/Ulcer Outcome Not Healed Not Healed -Ulcer Cleansing Rinsed/ Rinsed/ Irrigated with Irrigated with Saline Saline -Foul Odor after Cleansing No No -Bioengineered Tissue No Yes -Type of Bioengineered Tissue Epifix 18mm Disc -Expiration Date 11/13/28 -Product Lot Number [id number] -Percent Used 100 -Lot number of Saline Used [id number] -Bleeding Controlled with Pressure Pressure -Treatment Response Procedure Procedure Tolerated Well Tolerated Well -Offloading No -Debridement - Subq, 1st 20sq cm Yes No -Apply Skin Sub - 1st 25 sq cm - Legs 1 -Epifix 18mm Disc 3 Pain Scale: 0-10 Numeric Is Patient Pain Free? Yes Yes - Nurse 3 - General Ulcer D/C NN Start: 04/21/24 08:18 Freq: Status: Active Protocol: Activity Type Activity Date Activity User E-sign Co-sign Detail Recorded Client Recorded Date Recorded By Document 04/21/24 09:19 DL [id number] 04/21/24 09:20 DL Document 04/27/24 08:56 [id number] 04/27/24 09:06 04/21/24 04/27/24 09:19 08:56 Wound Care Center Nurse 3 #8 Lt stump -Foul Odor after Cleansing No -Other Dressing Epi -Primary Dressing Covered/Secured with Dry Gauze & Roll Gauze, Secured with Tape -Other Covering armaan #4 RT LAT ANKLE -Ulcer Cleansing Not Cleansed -Foul Odor after Cleansing No No -Other Dressing Epi -Primary Dressing Covered/Secured with Dry Gauze & Dry Gauze,Dry Roll Gauze, Gauze & Roll Secured with Gauze,Secured Tape with Tape -Other Covering ARMAAN Left -Lotion applied to leg before No compression wrap -Compression Wrap Armaan Wrap Right -Compression Wrap Armaan Wrap Treatment Response Procedure Tolerated Well Pain Scale: 0-10 Numeric Is Patient Pain Free? Yes Yes - Visit Discharge Discharge Condition Stable Stable Ambulatory Status Wheelchair Wheelchair Transportation [facility] trans [facility] Facility Type Residential Care Facility Orders Sent Yes Assessment/Plan Assessment/Plan (1) Non-pressure chronic ulcer of other part of left lower leg with fat layer exposed: CODE(S): L97.822 - Non-pressure chronic ulcer of other part of left lower leg with fat layer exposed PLAN: Patient was examined and evaluated. All findings were discussed with the patient. All questions were answered to the patient's satisfaction. Excisional debridement down to and including subcutaneous tissue of the left below-knee amputation full-thickness wound of the left lower extremity with a number 3 mm dermal curette without incident. Predebridement measurement was callus. Post debridement measurement 0.1 x 0.1 x 0.1 cm. EpiFix 18 mm disc was applied to the left full-thickness ulceration with 100% use. Fourth application. The graft site was free and clear of any infection. The wound/skin graft substitute was dressed with nonadherent bandage secured in place with Steri-Strips followed by bolster dressing as well as Armaan wrap. Excisional debridement down to and including subcutaneous tissue to the right lateral ankle full-thickness ulceration with a number 3 mm dermal curette without incident. Predebridement measurement is 0.3 x 0.9 x 0.1 cm. Postdebridement measurement is 0.5 x 1.2 x 0.1 cm. Bilateral compression wraps were applied to the bilateral lower extremity. Patient continue strict blood sugar control. Follow-up at the wound care center with Dr. Sarah in 1 week. (2) Non-pressure chronic ulcer of right ankle with fat layer exposed: CODE(S): L97.312 - Non-pressure chronic ulcer of right ankle with fat layer exposed
--- NOTE | 2024-04-28 09:26 | WC ---
PHOTO 04/27/24 RIGHT ANKLE
--- NOTE | 2024-04-28 09:32 | WC ---
PHOTO 04/27/24 LEFT STUMP
[2024-05-04 08:30] VITALS: BP 154/84; PULSE 77; RESP 18; TEMP 35.6; BMI 44.4
--- NOTE | 2024-05-04 08:58 | PCM.WC.PN ---
History of Present Illness Date of Service: 05/04/24 Chief Complaint: Bilateral leg wounds. History of Wound: By leg wounds. 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 Patient has been compliant with dressing changes to the right ankle lateral full-thickness wound. Patient's blood sugars well-controlled. Subjective Subjective Mr. Olivares is a 78-year-old diabetic male presenting to the wound care center today for follow-up evaluation of bilateral full-thickness wounds to the left below-knee amputation stump and full-thickness wound to the lateral aspect of the right ankle. The patient's below the knee amputation wound stump is now healed. Patient has left the wound dressing to the right lower extremity clean dry and intact with as needed dressing changes. His blood sugar is well-controlled. He does elevate when he remembers but is in his wheelchair throughout the day at the facility. He denies any trauma. Denies constitutional symptoms. No other pedal complaints at this time. Objective Data Objective Data Vital Signs: Vital Signs Temp Pulse Resp BP O2 Del Method 96.1 F L 77 18 154/84 H Room Air 05/04/24 08:30 05/04/24 08:30 05/04/24 08:30 05/04/24 08:30 05/04/24 08:30 Oxygen Delivery Method Room Air Weight: 161.479 kg Body Mass Index (BMI) 44.4 Physical Exam Narrative Vascular: DP and PT pulses are faintly palpable to the right lower extremity. CFT is brisk to the bilateral lower extremity. No erythema or proximal streaking appreciated. Neurological: Light touch intact. Protective sensation is absent. Dermatological: Full-thickness wound to the left below-knee amputation stump is now healed. Full-thickness ulceration to the right lateral ankle measuring 0.1 x 0.1 x 0.1 cm. Excisional debridement down to and including subcutaneous tissue to the right lateral ankle full-thickness ulceration with a number 3 mm dermal curette without incident. Predebridement measurement is sanguinous crust postdebridement measurement is 0.1 x 0.1 x 0.1 cm. Musculoskeletal: Evidence of valgus contracture to the right ankle. Patient is nonambulatory and resides in wheelchair. No pain with calf pressure bilateral. HEENT normocephalic Eyes General Eye: normal appearance of both eyes Neck General: normal visual inspection Lymph Lymphatic: no lymphadenopathy noted and no lymphedema noted Resp normal respiratory effort Cardio regular rate and regular rhythm Extremity Extremity Narrative: Right lower extremity: Vascular: DP and PT pulses are faintly palpable. CFT is brisk to the lower extremity. Neurologic: Light touch sensation intact. Protective sensation is absent. Musculoskeletal: There is evidence of valgus contracture to the right ankle. Decreased range of motion of the ankle joint in dorsiflexion with knee extended without pain or crepitus. Negative Homans' sign. Negative Javier sign. Patient is nonambulatory and is assisted by wheelchair. Dermatologic: Full-thickness ulceration lateral malleoli with healthy granular layer. No signs of infection. 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 No signs of infection. Skin skin turgor normal Neuro moves all extremities Debridement Note Debridement Note Debridement Free Text: Excisional debridement down to and including subcutaneous tissue to the right lateral ankle full-thickness ulceration with a number 3 mm dermal curette without incident. Predebridement measurement is sanguinous crust postdebridement measurement is 0.1 x 0.1 x 0.1 cm. Post-Debridement Measurements and Additional Note: Post-Debridement Measurements/Treatment - Nurse 1 - General Ulcer Assessment Start: 04/21/24 08:18 Freq: Status: Active Protocol: [email or web address] Activity Type Activity Date Activity User E-sign Co-sign Detail Recorded Client Recorded Date Recorded By Document 04/21/24 08:18 KW [id number] 04/21/24 08:36 KW Document 04/27/24 08:31 KW [id number] 04/27/24 08:33 KW Document 05/04/24 08:30 KW [id number] 05/04/24 08:37 KW 04/21/24 04/27/24 05/04/24 08:18 08:31 08:30 - Today's Visit Information Type of service Follow-up Visit Follow-up Visit Follow-up Visit (Physician/CLINICAL LABORATORY SERVICE TEACHER (Physician/CLINICAL LABORATORY SERVICE TEACHER (Physician/CLINICAL LABORATORY SERVICE TEACHER ) ) ) Arrival Mode Wheelchair Ambulatory Wheelchair Transfer Assistance None Accompanied by nurse nurse Patient Identification Verified (Name & Yes Yes Yes ) Height and Weight Body Mass Index (BMI) 44.4 44.4 44.4 BMI Classification Obese Obese Obese Vital Signs Temperature (97.8 F-99.1 F) 96.1 F L 97.2 F L 96.1 F L Temperature Source Temporal Temporal Temporal Pulse Rate (60-100) 88 84 77 Pulse Location Monitor Monitor Monitor Respiratory Rate (12-18) 18 18 18 Respiratory rate source Observation Observation Observation Oxygen Delivery Method Room Air Room Air Blood Pressure (90/60-120/80) 138/68 H 140/79 H 154/84 H Blood Pressure Mean (mm Hg) 91 99 107 Source Monitor Monitor Monitor Position Semi-Fowlers Sitting Sitting Blood Pressure Location Left Arm Left Arm Left Arm History Since Last Visit- (Skip if this is Patient's initial visit) Have you changed medications since your No No No last visit? Any new allergies or adverse reactions No No No Had a fall/change in ADL's that may No No No increase risk of falls Signs or symptoms of abuse and/or No No No neglect since last visit Have you been in the hospital since your No No last visit? Has dressing in place as prescribed Yes Yes Yes Has compression in place as prescribed Yes Yes Yes Has offloadiing in place as prescribed Yes Yes Yes Experienced any changes in pain level or No No No management Left Footwear No Footwear [place]/Foam Right Footwear No Footwear [place]/Foam Pain Scale: 0-10 Numeric Is Patient Pain Free? Yes Yes Yes WC - Nurse 1 - General Ulcer Measurement Start: 04/21/24 08:18 Freq: Status: Active Protocol: Activity Type Activity Date Activity User E-sign Co-sign Detail Recorded Client Recorded Date Recorded By Document 04/21/24 08:18 KW [id number] 04/21/24 08:36 KW Document 04/27/24 08:31 KW [id number] 04/27/24 08:33 KW Document 05/04/24 08:30 KW [id number] 05/04/24 08:37 KW 04/21/24 04/27/24 05/04/24 08:18 08:31 08:30 Wound Center Nurse 1 #8 Lt stump -Current Size (cm) - Length 0.1 0.1 -Current Size (cm) - Width 0.3 0.3 -Current Size (cm) - Depth 0.2 0.1 -Total Square Cm 0.03 0.03 -Date of Last Picture (Recall this 04/27/24 field) -Photo Taken Yes -Epithelialization Small 1-33% -Tunneling No -Undermining/Tunneling No -Circular Undermining No -Exudate Amt Small None Present -Exudate Type Serosanguineous -Wound Margin Distinct, Thickened & Outline Rolled Under Attached -Granulation Amt Small (1-33%) -Granulation Quality [place] -Necrosis Amt Small (1-33%) -Necrotic Tissue Type Adherent Slough -Structure Exposed N/A -Texture (Michell-wound Skin Appearance) Scarring Assessed -Moisture (Michell-wound Skin Appearance) No Abnormality -Color (Michell-wound Skin Appearance) Hemosiderin Assessed Staining -Temperature (Michell-wound Skin No Abnormality No Abnormality Appearance) (Pt Warm) (Pt Warm) -Tenderness on Palpation (Michell-wound No Skin Appearance) -Ulcer Cleansing Soap and Water Soap and Water -Foul Odor after Cleansing No No -Anesthetic Used 5% Lidocaine 5% Lidocaine Gel Gel #4 RT LAT ANKLE -Current Size (cm) - Length 0.1 0.1 0.1 -Current Size (cm) - Width 0.1 0.1 0.1 -Current Size (cm) - Depth 0.1 0.1 0.1 -Total Square Cm 0.01 0.01 0.01 -Date of Last Picture (Recall this 04/27/24 05/04/24 field) -Photo Taken Yes Yes Yes -Tunneling No -Undermining/Tunneling No -Circular Undermining No -Exudate Amt Medium None Present -Exudate Type Serosanguineous -Wound Margin Thickened Distinct, Distinct, Outline Outline Attached Attached -Granulation Amt None Present (0 %) -Granulation Quality N/A -Slough/Fibrin No -Necrosis Amt Small (1-33%) None Present (0 %) -Necrotic Tissue Type Eschar -Structure Exposed N/A -Texture (Michell-wound Skin Appearance) Scarring Assessed Assessed -Moisture (Michell-wound Skin Appearance) Dry/Scaly Assessed Assessed -Color (Michell-wound Skin Appearance) Hemosiderin Assessed Assessed Staining -Temperature (Michell-wound Skin No Abnormality No Abnormality No Abnormality Appearance) (Pt Warm) (Pt Warm) (Pt Warm) -Tenderness on Palpation (Michell-wound No No Skin Appearance) -Ulcer Cleansing Soap and Water Soap and Water Soap and Water -Foul Odor after Cleansing No No No -Anesthetic Used 5% Lidocaine 5% Lidocaine 5% Lidocaine Gel Gel Gel - Nurse 2 - General Ulcer CM Notes Start: 04/21/24 08:18 Freq: Status: Active Protocol: Activity Type Activity Date Activity User E-sign Co-sign Detail Recorded Client Recorded Date Recorded By Document 04/21/24 08:50 [facility] [id number] 04/21/24 09:01 BM Document 04/27/24 08:43 [id number] 04/27/24 08:49 Edit Result 04/27/24 08:43 JF (1) [facility] 04/27/24 10:01 Document 05/04/24 08:47 JF [id number] 05/04/24 08:48 JF (1) #1 LT STUMP - Time => 10:00 - Correct Patient => Yes - Correct Side, Site, Position => Yes - Correct Procedure => Yes - Procedure Performed => Yes - Type of Procedure => Debridement - Clinical Debridement => Subcutaneous - Tissue Removed => Subcutaneous - Post Debridement (cm) - Length => 0.1 - Post Debridement (cm) - Width => 0.1 - Post Debridement (cm) - Depth => 0.1 - Total Square (Post) (cm) => 0.01 - Area of Debridement (cm) - Length => 0.1 - Area of Debridement (cm) - Width => 0.1 - Total Square (Area) (cm) => 0.01 - Tunneling => No - Undermining/Tunneling => No - Circular Undermining => No - Wound/Ulcer Outcome => Not Healed - Ulcer Cleansing => Rinsed/Irrigated => with Saline - Foul Odor after Cleansing => No - Bioengineered Tissue => Yes - Type of Bioengineered Tissue => Epifix 18mm Disc - Expiration Date => 11/13/28 - Product Lot Number => [id number] - Percent Used => 100 - Lot number of Saline Used => [id number] - Bleeding Controlled with => Pressure - Treatment Response => Procedure => Tolerated Well - Offloading => No - Debridement - Subq, 1st 20sq cm => No - Apply Skin Sub - 1st 25 sq cm - Legs => 1 - Epifix 18mm Disc => 3 #4 RT LAT ANKLE - Bioengineered Tissue Yes => No - Type of Bioengineered Tissue Epifix 18mm Disc => - Expiration Date 11/13/28 => - Product Lot Number [id number] => - Percent Used 100 => - Lot number of Saline Used [id number] => - Debridement - Subq, 1st 20sq cm No => Yes - Apply Skin Sub - 1st 25 sq cm - Legs 1 => - Epifix 18mm Disc 3 => 04/21/24 04/27/24 05/04/24 08:50 08:43 08:47 Wound Center Nurse 2 #8 Lt stump -Time 08:55 -Correct Patient Yes No -Correct Side, Site, Position Yes No -Correct Procedure Yes No -Procedure Performed Yes No -Type of Procedure Debridement -Clinical Debridement Subcutaneous -Tissue Removed Subcutaneous -Post Debridement (cm) - Length 0.5 0 -Post Debridement (cm) - Width 0.9 0 -Post Debridement (cm) - Depth 0.1 0 -Total Square (Post) (cm) 0.45 0 -Area of Debridement (cm) - Length 0.5 0 -Area of Debridement (cm) - Width 0.9 0 -Total Square (Area) (cm) 0.45 0 -Tunneling No -Undermining/Tunneling No -Circular Undermining No -Wound/Ulcer Outcome Not Healed Healed- Epithelialized -Ulcer Cleansing Rinsed/ Irrigated with Saline -Foul Odor after Cleansing No -Bioengineered Tissue No -Expiration Date 08/13/28 -Product Lot Number [id number] -Percent Used 100 -Lot number of Saline Used [id number] -Bleeding Controlled with Pressure -Treatment Response Procedure Tolerated Well -Debridement - Subq, 1st 20sq cm No -Apply Skin Sub - 1st 25 sq cm - Legs 1 -[place] (per sq cm) 6 #1 LT STUMP -Time 10:00 -Correct Patient Yes -Correct Side, Site, Position Yes -Correct Procedure Yes -Procedure Performed Yes -Type of Procedure Debridement -Clinical Debridement Subcutaneous -Tissue Removed Subcutaneous -Post Debridement (cm) - Length 0.1 -Post Debridement (cm) - Width 0.1 -Post Debridement (cm) - Depth 0.1 -Total Square (Post) (cm) 0.01 -Area of Debridement (cm) - Length 0.1 -Area of Debridement (cm) - Width 0.1 -Total Square (Area) (cm) 0.01 -Tunneling No -Undermining/Tunneling No -Circular Undermining No -Wound/Ulcer Outcome Not Healed -Ulcer Cleansing Rinsed/ Irrigated with Saline -Foul Odor after Cleansing No -Bioengineered Tissue Yes -Type of Bioengineered Tissue Epifix 18mm Disc -Expiration Date 11/13/28 -Product Lot Number [id number] -Percent Used 100 -Lot number of Saline Used [id number] -Bleeding Controlled with Pressure -Treatment Response Procedure Tolerated Well -Offloading No -Debridement - Subq, 1st 20sq cm No -Apply Skin Sub - 1st 25 sq cm - Legs 1 -Epifix 18mm Disc 3 #4 RT LAT ANKLE -Time 08:56 08:43 08:48 -Correct Patient Yes Yes Yes -Correct Side, Site, Position Yes Yes Yes -Correct Procedure Yes Yes Yes -Procedure Performed Yes Yes Yes -Type of Procedure Debridement Debridement Debridement -Clinical Debridement Subcutaneous Subcutaneous Subcutaneous -Tissue Removed Subcutaneous Subcutaneous Subcutaneous -Post Debridement (cm) - Length 0.7 0.5 0.1 -Post Debridement (cm) - Width 1.5 1.2 0.1 -Post Debridement (cm) - Depth 0.2 0.1 0.1 -Total Square (Post) (cm) 1.05 0.60 0.01 -Area of Debridement (cm) - Length 0.7 0.5 0.1 -Area of Debridement (cm) - Width 1.5 1.2 0.1 -Total Square (Area) (cm) 1.05 0.60 0.01 -Tunneling No No No -Undermining/Tunneling No No No -Circular Undermining No No No -Wound/Ulcer Outcome Not Healed Not Healed Not Healed -Ulcer Cleansing Rinsed/ Rinsed/ Rinsed/ Irrigated with Irrigated with Irrigated with Saline Saline Saline -Foul Odor after Cleansing No No No -Bioengineered Tissue No No No -Bleeding Controlled with Pressure Pressure Pressure -Treatment Response Procedure Procedure Procedure Tolerated Well Tolerated Well Tolerated Well -Offloading No No -Debridement - Subq, 1st 20sq cm Yes Yes Yes Pain Scale: 0-10 Numeric Is Patient Pain Free? Yes Yes Yes - Nurse 3 - General Ulcer D/C NN Start: 04/21/24 08:18 Freq: Status: Active Protocol: Activity Type Activity Date Activity User E-sign Co-sign Detail Recorded Client Recorded Date Recorded By Document 04/21/24 09:19 DL [id number] 04/21/24 09:20 DL Document 04/27/24 08:56 GM [id number] 04/27/24 09:06 GM Document 05/04/24 08:55 KW [id number] 05/04/24 08:55 KW 04/21/24 04/27/24 05/04/24 09:19 08:56 08:55 Wound Care Center Nurse 3 #8 Lt stump -Foul Odor after Cleansing No -Other Dressing Epi -Primary Dressing Covered/Secured with Dry Gauze & Roll Gauze, Secured with Tape -Other Covering armaan #4 RT LAT ANKLE -Ulcer Cleansing Not Cleansed -Foul Odor after Cleansing No No -Primary Dressing Applied Promogran Rafaela Matter -Other Dressing Epi -Primary Dressing Covered/Secured with Dry Gauze & Dry Gauze,Dry Dry Gauze & Roll Gauze, Gauze & Roll Roll Gauze, Secured with Gauze,Secured Secured with Tape with Tape Tape -Other Covering ARMAAN -Promogran Rafaela Matter 1 Left -Lotion applied to leg before No compression wrap -Compression Wrap Armaan Wrap Right -Multi-Layered Wrap Application Multi-Layer Comp - Right ($ ) -Compression Wrap Armaan Wrap Treatment Response Procedure Tolerated Well Pain Scale: 0-10 Numeric Is Patient Pain Free? Yes Yes Yes WC - Visit Discharge Discharge Condition Stable Stable Ambulatory Status Wheelchair Wheelchair Transportation [facility] Facility Type Detention Care Facility Orders Sent Yes Assessment/Plan Assessment/Plan (1) Non-pressure chronic ulcer of right ankle with fat layer exposed: CODE(S): L97.312 - Non-pressure chronic ulcer of right ankle with fat layer exposed PLAN: Patient was examined and evaluated. All findings were discussed with the patient. All questions were answered to the patient's satisfaction. Excisional debridement down to and including subcutaneous tissue to the right lateral ankle full-thickness ulceration with a number 3 mm dermal curette without incident. Predebridement measurement is sanguinous crust postdebridement measurement is 0.1 x 0.1 x 0.1 cm. Moist Rafaela was applied to the right lateral ankle followed by dry sterile dressing and a 3M compression wrap. Orders were given to leave the dressing intact until follow-up in 1 week. If the patient's wound is showing improvement and shows no evidence of continued breakdown the patient will be rewrapped and a 3M compression wrap for an additional week and then he will be discharged from the wound care center for successful wound healing. Patient continue strict blood sugar control. Follow-up at the wound care center with Dr. Sarah in 1 week.
--- NOTE | 2024-05-05 08:43 | WC ---
PHOTO 05/04/24 RIGHT LATERAL ANKLE
[2024-05-11 09:17] VITALS: BP 126/78; PULSE 92; RESP 18; TEMP 36.2; BMI 44.4
--- NOTE | 2024-05-11 10:15 | PCM.WC.PN ---
History of Present Illness Date of Service: 05/11/24 Chief Complaint: Bilateral leg wounds. History of Wound: By leg wounds. 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 Patient has been compliant with dressing changes to the right ankle lateral full-thickness wound. Patient's blood sugars well-controlled. Subjective Subjective Mr. Olivares is a 78-year-old diabetic male presenting to the wound care center today for follow-up evaluation of full-thickness wound to the lateral aspect of the right ankle. The left below-knee amputation stump full-thickness wound is now healed. Patient's blood sugars well-controlled. He has left a multilayer compression bandage clean dry and intact. Patient is grateful for his care. Denies trauma. Denies constitutional symptoms. No other pedal complaints at this time. Objective Data Objective Data Vital Signs: Vital Signs Temp Pulse Resp BP O2 Del Method 97.2 F L 92 18 126/78 H Room Air 05/11/24 09:17 05/11/24 09:17 05/11/24 09:17 05/11/24 09:17 05/11/24 09:17 Oxygen Delivery Method Room Air Weight: 161.479 kg Body Mass Index (BMI) 44.4 Physical Exam Narrative Vascular: DP and PT pulses are faintly palpable to the right lower extremity. CFT is brisk to the bilateral lower extremity. No erythema or proximal streaking appreciated. Neurological: Light touch intact. Protective sensation is absent. Dermatological: Full-thickness wound to the left below-knee amputation stump is now healed. Full-thickness ulceration to the right lateral ankle measuring 0.1 x 0.1 x 0.1 cm. Excisional debridement down to and including subcutaneous tissue to the right lateral ankle full-thickness ulceration with a number 3 mm dermal curette without incident. Predebridement measurement is sanguinous crust postdebridement measurement is 0.1 x 0.1 x 0.1 cm. Musculoskeletal: Evidence of valgus contracture to the right ankle. Patient is nonambulatory and resides in wheelchair. No pain with calf pressure bilateral. Const alert, oriented x3 and no apparent distress General Appearance: cooperative HEENT normocephalic Eyes General Eye: normal appearance of both eyes Neck General: normal visual inspection Lymph Lymphatic: no lymphadenopathy noted and no lymphedema noted Resp normal respiratory effort Cardio regular rate and regular rhythm Extremity Extremity Narrative: Right lower extremity: Vascular: DP and PT pulses are faintly palpable. CFT is brisk to the lower extremity. Neurologic: Light touch sensation intact. Protective sensation is absent. Musculoskeletal: There is evidence of valgus contracture to the right ankle. Decreased range of motion of the ankle joint in dorsiflexion with knee extended without pain or crepitus. Negative Homans' sign. Negative Javier sign. Patient is nonambulatory and is assisted by wheelchair. Dermatologic: Full-thickness ulceration lateral malleoli with healthy granular layer. No signs of infection. 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 No signs of infection. Skin skin turgor normal Neuro moves all extremities Debridement Note Debridement Note Debridement Free Text: Excisional debridement down to and including subcutaneous tissue to the right lateral ankle full-thickness ulceration with a number 3 mm dermal curette without incident. Predebridement measurement is sanguinous crust postdebridement measurement is 0.1 x 0.1 x 0.1 cm. Post-Debridement Measurements and Additional Note: Post-Debridement Measurements/Treatment - Nurse 1 - General Ulcer Assessment Start: 04/21/24 08:18 Freq: Status: Active Protocol: FABIENNE Activity Type Activity Date Activity User E-sign Co-sign Detail Recorded Client Recorded Date Recorded By Document 04/21/24 08:18 KW [id number] 04/21/24 08:36 KW Document 04/27/24 08:31 KW [id number] 04/27/24 08:33 KW Document 05/04/24 08:30 KW [id number] 05/04/24 08:37 KW Document 05/11/24 09:17 MT [id number] 05/11/24 09:23 MT 04/21/24 04/27/24 05/04/24 08:18 08:31 08:30 - Today's Visit Information Type of service Follow-up Visit Follow-up Visit Follow-up Visit (Physician/FLIGHT RESERVATIONS MANAGER (Physician/FLIGHT RESERVATIONS MANAGER (Physician/FLIGHT RESERVATIONS MANAGER ) ) ) Arrival Mode Wheelchair Ambulatory Wheelchair Transfer Assistance None Accompanied by nurse nurse Patient Identification Verified (Name & Yes Yes Yes ) Safety Precautions Finger Stick Blood Sugar(mg/dl) (if indicated): Blood Sugar Height and Weight Body Mass Index (BMI) 44.4 44.4 44.4 BMI Classification Obese Obese Obese Vital Signs Temperature (97.8 F-99.1 F) 96.1 F L 97.2 F L 96.1 F L Temperature Source Temporal Temporal Temporal Pulse Rate (60-100) 88 84 77 Pulse Location Monitor Monitor Monitor Respiratory Rate (12-18) 18 18 18 Respiratory rate source Observation Observation Observation Oxygen Delivery Method Room Air Room Air Blood Pressure (90/60-120/80) 138/68 H 140/79 H 154/84 H Blood Pressure Mean (mm Hg) 91 99 107 Source Monitor Monitor Monitor Position Semi-Fowlers Sitting Sitting Blood Pressure Location Left Arm Left Arm Left Arm History Since Last Visit- (Skip if this is Patient's initial visit) Have you changed medications since your No No No last visit? Any new allergies or adverse reactions No No No Had a fall/change in ADL's that may No No No increase risk of falls Signs or symptoms of abuse and/or No No No neglect since last visit Have you been in the hospital since your No No last visit? Has dressing in place as prescribed Yes Yes Yes Has compression in place as prescribed Yes Yes Yes Has offloadiing in place as prescribed Yes Yes Yes Experienced any changes in pain level or No No No management Left Footwear No Footwear [place]/Foam Right Footwear No Footwear [place]/Foam Pain Scale: 0-10 Numeric Is Patient Pain Free? Yes Yes Yes 05/11/24 09:17 WC - Today's Visit Information Type of service Follow-up Visit (Physician/FLIGHT RESERVATIONS MANAGER ) Arrival Mode Wheelchair Transfer Assistance Accompanied by yes Patient Identification Verified (Name & Yes ) Safety Precautions Fall Prevention Finger Stick Blood Sugar(mg/dl) (if 121 indicated): Blood Sugar Stated by Patient Height and Weight Body Mass Index (BMI) 44.4 BMI Classification Obese Vital Signs Temperature (97.8 F-99.1 F) 97.2 F L Temperature Source Temporal Pulse Rate (60-100) 92 Pulse Location Monitor Respiratory Rate (12-18) 18 Respiratory rate source Observation Oxygen Delivery Method Room Air Blood Pressure (90/60-120/80) 126/78 H Blood Pressure Mean (mm Hg) 94 Source Monitor Position Sitting Blood Pressure Location Right Arm History Since Last Visit- (Skip if this is Patient's initial visit) Have you changed medications since your last visit? Any new allergies or adverse reactions Had a fall/change in ADL's that may increase risk of falls Signs or symptoms of abuse and/or neglect since last visit Have you been in the hospital since your last visit? Has dressing in place as prescribed Yes Has compression in place as prescribed Yes Has offloadiing in place as prescribed Yes Experienced any changes in pain level or Yes management Left Footwear Slipper Right Footwear Slipper Pain Scale: 0-10 Numeric Is Patient Pain Free? Yes WC - Nurse 1 - General Ulcer Measurement Start: 04/21/24 08:18 Freq: Status: Active Protocol: Activity Type Activity Date Activity User E-sign Co-sign Detail Recorded Client Recorded Date Recorded By Document 04/21/24 08:18 KW [id number] 04/21/24 08:36 KW Document 04/27/24 08:31 KW [id number] 04/27/24 08:33 KW Document 05/04/24 08:30 KW [id number] 05/04/24 08:37 KW Document 05/11/24 09:17 MT [id number] 05/11/24 09:23 MT 04/21/24 04/27/24 05/04/24 08:18 08:31 08:30 Wound Center Nurse 1 #8 Lt stump -Current Size (cm) - Length 0.1 0.1 -Current Size (cm) - Width 0.3 0.3 -Current Size (cm) - Depth 0.2 0.1 -Total Square Cm 0.03 0.03 -Date of Last Picture (Recall this 04/27/24 field) -Photo Taken Yes -Epithelialization Small 1-33% -Tunneling No -Undermining/Tunneling No -Circular Undermining No -Exudate Amt Small None Present -Exudate Type Serosanguineous -Wound Margin Distinct, Thickened & Outline Rolled Under Attached -Granulation Amt Small (1-33%) -Granulation Quality [place] -Necrosis Amt Small (1-33%) -Necrotic Tissue Type Adherent Slough -Structure Exposed N/A -Texture (Michell-wound Skin Appearance) Scarring Assessed -Moisture (Michell-wound Skin Appearance) No Abnormality -Color (Michell-wound Skin Appearance) Hemosiderin Assessed Staining -Temperature (Michell-wound Skin No Abnormality No Abnormality Appearance) (Pt Warm) (Pt Warm) -Tenderness on Palpation (Michell-wound No Skin Appearance) -Ulcer Cleansing Soap and Water Soap and Water -Foul Odor after Cleansing No No -Anesthetic Used 5% Lidocaine 5% Lidocaine Gel Gel #4 RT LAT ANKLE -Current Size (cm) - Length 0.1 0.1 0.1 -Current Size (cm) - Width 0.1 0.1 0.1 -Current Size (cm) - Depth 0.1 0.1 0.1 -Total Square Cm 0.01 0.01 0.01 -Date of Last Picture (Recall this 04/27/24 05/04/24 field) -Photo Taken Yes Yes Yes -Tunneling No -Undermining/Tunneling No -Circular Undermining No -Exudate Amt Medium None Present -Exudate Type Serosanguineous -Wound Margin Thickened Distinct, Distinct, Outline Outline Attached Attached -Granulation Amt None Present (0 %) -Granulation Quality N/A -Slough/Fibrin No -Necrosis Amt Small (1-33%) None Present (0 %) -Necrotic Tissue Type Eschar -Structure Exposed N/A -Texture (Michell-wound Skin Appearance) Scarring Assessed Assessed -Moisture (Michell-wound Skin Appearance) Dry/Scaly Assessed Assessed -Color (Michell-wound Skin Appearance) Hemosiderin Assessed Assessed Staining -Temperature (Michell-wound Skin No Abnormality No Abnormality No Abnormality Appearance) (Pt Warm) (Pt Warm) (Pt Warm) -Tenderness on Palpation (Michell-wound No No Skin Appearance) -Ulcer Cleansing Soap and Water Soap and Water Soap and Water -Foul Odor after Cleansing No No No -Anesthetic Used 5% Lidocaine 5% Lidocaine 5% Lidocaine Gel Gel Gel Right Calf (cm) Right Ankle (cm) 05/11/24 09:17 Wound Center Nurse 1 #8 Lt stump -Current Size (cm) - Length -Current Size (cm) - Width -Current Size (cm) - Depth -Total Square Cm -Date of Last Picture (Recall this field) -Photo Taken -Epithelialization -Tunneling -Undermining/Tunneling -Circular Undermining -Exudate Amt -Exudate Type -Wound Margin -Granulation Amt -Granulation Quality -Necrosis Amt -Necrotic Tissue Type -Structure Exposed -Texture (Michell-wound Skin Appearance) -Moisture (Michell-wound Skin Appearance) -Color (Michell-wound Skin Appearance) -Temperature (Michell-wound Skin Appearance) -Tenderness on Palpation (Michell-wound Skin Appearance) -Ulcer Cleansing -Foul Odor after Cleansing -Anesthetic Used #4 RT LAT ANKLE -Current Size (cm) - Length 0.1 -Current Size (cm) - Width 0.1 -Current Size (cm) - Depth 0.1 -Total Square Cm 0.01 -Date of Last Picture (Recall this field) -Photo Taken -Tunneling No -Undermining/Tunneling No -Circular Undermining No -Exudate Amt None Present -Exudate Type -Wound Margin Flat & Intact -Granulation Amt Large (67-100%) -Granulation Quality Pale,[place] -Slough/Fibrin -Necrosis Amt -Necrotic Tissue Type -Structure Exposed -Texture (Michell-wound Skin Appearance) Assessed, Localized Edema -Moisture (Michell-wound Skin Appearance) Assessed -Color (Michell-wound Skin Appearance) Assessed -Temperature (Michell-wound Skin No Abnormality Appearance) (Pt Warm) -Tenderness on Palpation (Michell-wound No Skin Appearance) -Ulcer Cleansing Soap and Water -Foul Odor after Cleansing No -Anesthetic Used Right Calf (cm) 43.5 Right Ankle (cm) 24.5 - Nurse 2 - General Ulcer CM Notes Start: 04/21/24 08:18 Freq: Status: Active Protocol: Activity Type Activity Date Activity User E-sign Co-sign Detail Recorded Client Recorded Date Recorded By Document 04/21/24 08:50 [facility] [id number] 04/21/24 09:01 [facility] Document 04/27/24 08:43 [id number] 04/27/24 08:49 Edit Result 04/27/24 08:43 JF (1) [facility] 04/27/24 10:01 Document 05/04/24 08:47 JF [id number] 05/04/24 08:48 JF Document 05/11/24 09:47 [id number] 05/11/24 09:49 JF (1) #1 LT STUMP - Time => 10:00 - Correct Patient => Yes - Correct Side, Site, Position => Yes - Correct Procedure => Yes - Procedure Performed => Yes - Type of Procedure => Debridement - Clinical Debridement => Subcutaneous - Tissue Removed => Subcutaneous - Post Debridement (cm) - Length => 0.1 - Post Debridement (cm) - Width => 0.1 - Post Debridement (cm) - Depth => 0.1 - Total Square (Post) (cm) => 0.01 - Area of Debridement (cm) - Length => 0.1 - Area of Debridement (cm) - Width => 0.1 - Total Square (Area) (cm) => 0.01 - Tunneling => No - Undermining/Tunneling => No - Circular Undermining => No - Wound/Ulcer Outcome => Not Healed - Ulcer Cleansing => Rinsed/Irrigated => with Saline - Foul Odor after Cleansing => No - Bioengineered Tissue => Yes - Type of Bioengineered Tissue => Epifix 18mm Disc - Expiration Date => 11/13/28 - Product Lot Number => [id number] - Percent Used => 100 - Lot number of Saline Used => [id number] - Bleeding Controlled with => Pressure - Treatment Response => Procedure => Tolerated Well - Offloading => No - Debridement - Subq, 1st 20sq cm => No - Apply Skin Sub - 1st 25 sq cm - Legs => 1 - Epifix 18mm Disc => 3 #4 RT LAT ANKLE - Bioengineered Tissue Yes => No - Type of Bioengineered Tissue Epifix 18mm Disc => - Expiration Date 11/13/28 => - Product Lot Number [id number] => - Percent Used 100 => - Lot number of Saline Used [id number] => - Debridement - Subq, 1st 20sq cm No => Yes - Apply Skin Sub - 1st 25 sq cm - Legs 1 => - Epifix 18mm Disc 3 => 04/21/24 04/27/24 05/04/24 08:50 08:43 08:47 Wound Center Nurse 2 #8 Lt stump -Time 08:55 -Correct Patient Yes No -Correct Side, Site, Position Yes No -Correct Procedure Yes No -Procedure Performed Yes No -Type of Procedure Debridement -Clinical Debridement Subcutaneous -Tissue Removed Subcutaneous -Post Debridement (cm) - Length 0.5 0 -Post Debridement (cm) - Width 0.9 0 -Post Debridement (cm) - Depth 0.1 0 -Total Square (Post) (cm) 0.45 0 -Area of Debridement (cm) - Length 0.5 0 -Area of Debridement (cm) - Width 0.9 0 -Total Square (Area) (cm) 0.45 0 -Tunneling No -Undermining/Tunneling No -Circular Undermining No -Wound/Ulcer Outcome Not Healed Healed- Epithelialized -Ulcer Cleansing Rinsed/ Irrigated with Saline -Foul Odor after Cleansing No -Bioengineered Tissue No -Expiration Date 08/13/28 -Product Lot Number [id number] -Percent Used 100 -Lot number of Saline Used [id number] -Bleeding Controlled with Pressure -Treatment Response Procedure Tolerated Well -Debridement - Subq, 1st 20sq cm No -Apply Skin Sub - 1st 25 sq cm - Legs 1 -Epicord (per sq cm) 6 #1 LT STUMP -Time 10:00 -Correct Patient Yes -Correct Side, Site, Position Yes -Correct Procedure Yes -Procedure Performed Yes -Type of Procedure Debridement -Clinical Debridement Subcutaneous -Tissue Removed Subcutaneous -Post Debridement (cm) - Length 0.1 -Post Debridement (cm) - Width 0.1 -Post Debridement (cm) - Depth 0.1 -Total Square (Post) (cm) 0.01 -Area of Debridement (cm) - Length 0.1 -Area of Debridement (cm) - Width 0.1 -Total Square (Area) (cm) 0.01 -Tunneling No -Undermining/Tunneling No -Circular Undermining No -Wound/Ulcer Outcome Not Healed -Ulcer Cleansing Rinsed/ Irrigated with Saline -Foul Odor after Cleansing No -Bioengineered Tissue Yes -Type of Bioengineered Tissue Epifix 18mm Disc -Expiration Date 11/13/28 -Product Lot Number [id number] -Percent Used 100 -Lot number of Saline Used [id number] -Bleeding Controlled with Pressure -Treatment Response Procedure Tolerated Well -Offloading No -Debridement - Subq, 1st 20sq cm No -Apply Skin Sub - 1st 25 sq cm - Legs 1 -Epifix 18mm Disc 3 #4 RT LAT ANKLE -Time 08:56 08:43 08:48 -Correct Patient Yes Yes Yes -Correct Side, Site, Position Yes Yes Yes -Correct Procedure Yes Yes Yes -Procedure Performed Yes Yes Yes -Type of Procedure Debridement Debridement Debridement -Clinical Debridement Subcutaneous Subcutaneous Subcutaneous -Tissue Removed Subcutaneous Subcutaneous Subcutaneous -Post Debridement (cm) - Length 0.7 0.5 0.1 -Post Debridement (cm) - Width 1.5 1.2 0.1 -Post Debridement (cm) - Depth 0.2 0.1 0.1 -Total Square (Post) (cm) 1.05 0.60 0.01 -Area of Debridement (cm) - Length 0.7 0.5 0.1 -Area of Debridement (cm) - Width 1.5 1.2 0.1 -Total Square (Area) (cm) 1.05 0.60 0.01 -Tunneling No No No -Undermining/Tunneling No No No -Circular Undermining No No No -Wound/Ulcer Outcome Not Healed Not Healed Not Healed -Ulcer Cleansing Rinsed/ Rinsed/ Rinsed/ Irrigated with Irrigated with Irrigated with Saline Saline Saline -Foul Odor after Cleansing No No No -Bioengineered Tissue No No No -Bleeding Controlled with Pressure Pressure Pressure -Treatment Response Procedure Procedure Procedure Tolerated Well Tolerated Well Tolerated Well -Offloading No No -Debridement - Subq, 1st 20sq cm Yes Yes Yes Pain Scale: 0-10 Numeric Is Patient Pain Free? Yes Yes Yes 05/11/24 09:47 Wound Center Nurse 2 #8 Lt stump -Time -Correct Patient -Correct Side, Site, Position -Correct Procedure -Procedure Performed -Type of Procedure -Clinical Debridement -Tissue Removed -Post Debridement (cm) - Length -Post Debridement (cm) - Width -Post Debridement (cm) - Depth -Total Square (Post) (cm) -Area of Debridement (cm) - Length -Area of Debridement (cm) - Width -Total Square (Area) (cm) -Tunneling -Undermining/Tunneling -Circular Undermining -Wound/Ulcer Outcome -Ulcer Cleansing -Foul Odor after Cleansing -Bioengineered Tissue -Expiration Date -Product Lot Number -Percent Used -Lot number of Saline Used -Bleeding Controlled with -Treatment Response -Debridement - Subq, 1st 20sq cm -Apply Skin Sub - 1st 25 sq cm - Legs -Epicord (per sq cm) #1 LT STUMP -Time -Correct Patient -Correct Side, Site, Position -Correct Procedure -Procedure Performed -Type of Procedure -Clinical Debridement -Tissue Removed -Post Debridement (cm) - Length -Post Debridement (cm) - Width -Post Debridement (cm) - Depth -Total Square (Post) (cm) -Area of Debridement (cm) - Length -Area of Debridement (cm) - Width -Total Square (Area) (cm) -Tunneling -Undermining/Tunneling -Circular Undermining -Wound/Ulcer Outcome -Ulcer Cleansing -Foul Odor after Cleansing -Bioengineered Tissue -Type of Bioengineered Tissue -Expiration Date -Product Lot Number -Percent Used -Lot number of Saline Used -Bleeding Controlled with -Treatment Response -Offloading -Debridement - Subq, 1st 20sq cm -Apply Skin Sub - 1st 25 sq cm - Legs -Epifix 18mm Disc #4 RT LAT ANKLE -Time -Correct Patient No -Correct Side, Site, Position No -Correct Procedure No -Procedure Performed No -Type of Procedure -Clinical Debridement -Tissue Removed -Post Debridement (cm) - Length -Post Debridement (cm) - Width -Post Debridement (cm) - Depth -Total Square (Post) (cm) -Area of Debridement (cm) - Length -Area of Debridement (cm) - Width -Total Square (Area) (cm) -Tunneling -Undermining/Tunneling -Circular Undermining -Wound/Ulcer Outcome Not Healed -Ulcer Cleansing -Foul Odor after Cleansing -Bioengineered Tissue -Bleeding Controlled with -Treatment Response -Offloading -Debridement - Subq, 1st 20sq cm No Pain Scale: 0-10 Numeric Is Patient Pain Free? Yes WC - Nurse 3 - General Ulcer D/C NN Start: 04/21/24 08:18 Freq: Status: Active Protocol: Activity Type Activity Date Activity User E-sign Co-sign Detail Recorded Client Recorded Date Recorded By Document 04/21/24 09:19 DL [id number] 04/21/24 09:20 DL Document 04/27/24 08:56 GM [id number] 04/27/24 09:06 GM Document 05/04/24 08:55 KW [id number] 05/04/24 08:55 KW Document 05/11/24 09:56 MT [id number] 05/11/24 10:00 MT 04/21/24 04/27/24 05/04/24 09:19 08:56 08:55 Wound Care Center Nurse 3 #8 Lt stump -Foul Odor after Cleansing No -Other Dressing Epi -Primary Dressing Covered/Secured with Dry Gauze & Roll Gauze, Secured with Tape -Other Covering armaan #4 RT LAT ANKLE -Ulcer Cleansing Not Cleansed -Foul Odor after Cleansing No No -Primary Dressing Applied Promogran Rafaela Matter -Other Dressing Epi -Primary Dressing Covered/Secured with Dry Gauze & Dry Gauze,Dry Dry Gauze & Roll Gauze, Gauze & Roll Roll Gauze, Secured with Gauze,Secured Secured with Tape with Tape Tape -Other Covering ARMAAN -Promogran Rafaela Matter 1 Left -Lotion applied to leg before No compression wrap -Compression Wrap Armaan Wrap Right -Lotion applied to leg before compression wrap -Multi-Layered Wrap Application Multi-Layer Comp - Right ($ ) -Compression Wrap Armaan Wrap -Tubular Bandage -Size of Tubigrip Used -Size E ($) Treatment Response Procedure Tolerated Well Pain Scale: 0-10 Numeric Is Patient Pain Free? Yes Yes Yes WC - Visit Discharge Discharge Condition Stable Stable Ambulatory Status Wheelchair Wheelchair Transportation ECf trans Private Auto Medication Reconcilliation completed & provided to patient/care provider Clinical Summary of Care Provided Facility Type Shelter Care Facility Orders Sent Yes 05/11/24 09:56 Wound Care Center Nurse 3 #8 Lt stump -Foul Odor after Cleansing -Other Dressing -Primary Dressing Covered/Secured with -Other Covering #4 RT LAT ANKLE -Ulcer Cleansing LOTION -Foul Odor after Cleansing -Primary Dressing Applied Promogran Rafaela Matter -Other Dressing -Primary Dressing Covered/Secured with Dry Gauze & Roll Gauze, Secured with Tape -Other Covering -Promogran Rafaela Matter 1 Left -Lotion applied to leg before compression wrap -Compression Wrap Armaan Wrap Right -Lotion applied to leg before Yes compression wrap -Multi-Layered Wrap Application -Compression Wrap -Tubular Bandage Double Layer -Size of Tubigrip Used Size E -Size E ($) 2 Treatment Response Pain Scale: 0-10 Numeric Is Patient Pain Free? Yes WC - Visit Discharge Discharge Condition Stable Ambulatory Status Wheelchair Transportation Private Auto Medication Reconcilliation completed & No provided to patient/care provider Clinical Summary of Care Provided Yes Facility Type Orders Sent Assessment/Plan Assessment/Plan (1) Non-pressure chronic ulcer of right ankle with fat layer exposed: CODE(S): L97.312 - Non-pressure chronic ulcer of right ankle with fat layer exposed PLAN: Patient was examined and evaluated. All findings were discussed with the patient. All questions were answered to the patient's satisfaction. Excisional debridement down to and including subcutaneous tissue to the right lateral ankle full-thickness ulceration with a number 3 mm dermal curette without incident. Predebridement measurement is sanguinous crust postdebridement measurement is 0.1 x 0.1 x 0.1 cm. Moist Rafaela was applied to the right lateral ankle followed by dry sterile dressing and double layer Tubigrip. Orders will be given to nursing facility for every other day dressing changes. Patient continue strict blood sugar control. Follow-up at the wound care center with Dr. Sarah in 2 week.
== END 2024-05-14 23:59 | disposition home or self-care (01) ==
LOC: WC 08:30
PROVIDERS: PCP Internal Medicine Infectious Disease; Referring Provider Internal Medicine Infectious Disease; Visit Provider Podiatrist Foot & Ankle Surgery
DX: E11.622 Type 2 diabetes mellitus with other skin ulcer (principal); L97.312 Non-pressure chronic ulcer of right ankle with fat layer exposed; L97.822 Non-pressure chronic ulcer of other part of left lower leg with fat layer exposed; Z89.512 Acquired absence of left leg below knee
CPT/HCPCS: 11042; 15271; 29581; 99213; Q4186; Q4187; G0463

== ENCOUNTER 2024-06-01 08:30 | Outpatient (RCR) | payer MEDICARE, MEDICAID, SELFPAY ==
[2024-05-15 00:50] VITALS: BP 84/34; PULSE 114; RESP 18; TEMP 35.9; BMI 44.4
[2024-05-18 08:25] VITALS: BP 138/69; PULSE 102; RESP 18; TEMP 35.5; BMI 44.4
--- NOTE | 2024-05-18 11:38 | PN.PCM_ITS ---
History of Present Illness Date of Service: 05/18/24 Chief Complaint: Bilateral leg wounds. History of Wound: By leg wounds. Subjective Subjective Mr. Olivares is a 78-year-old diabetic male presented wound care center today for follow-up evaluation of full-thickness wound to lateral aspect of right lower extremity. 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 Patient got some confusion and was post a follow-up in 2 weeks but presented today. He denies any trauma. He has been getting dressing changes by the nursing staff at the [facility] facility. Denies constitutional symptoms. No other pedal complaints at this time. Objective Data Objective Data Vital Signs: Vital Signs Temp Pulse Resp BP 96 F L 102 H 18 138/69 H 05/18/24 08:25 05/18/24 08:25 05/18/24 08:25 05/18/24 08:25 Weight: 161.479 kg Body Mass Index (BMI) 44.4 Physical Exam Narrative Vascular: DP and PT pulses are faintly palpable to the right lower extremity. CFT is brisk to the bilateral lower extremity. No erythema or proximal streaking appreciated. Neurological: Light touch intact. Protective sensation is absent. Dermatological: Full-thickness wound to the left below-knee amputation stump is now healed. Full-thickness ulceration to the right lateral ankle measuring 0.8 x 1.2 x 0.1 cm. Excisional debridement down to and including subcutaneous tissue to the right lateral ankle full-thickness ulceration with a number 3 mm dermal curette without incident.. Right measurement was 0.5 x 1.0 x 0.1 cm. Postdebridement measurement is 0.8 x 1.2 x 0.1 cm. Musculoskeletal: Evidence of valgus contracture to the right ankle. Patient is nonambulatory and resides in wheelchair. No pain with calf pressure bilateral. Debridement Note Debridement Note Debridement Free Text: Excisional debridement down to and including subcutaneous tissue to the right lateral ankle full-thickness ulceration with a number 3 mm dermal curette without incident.. Right measurement was 0.5 x 1.0 x 0.1 cm. Postdebridement measurement is 0.8 x 1.2 x 0.1 cm. 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 ) Arrival Mode Wheelchair Transfer Assistance None Patient Identification Verified (Name & Yes ) Patient Requires Transmission-Based No Precautions Height and Weight Body Mass Index (BMI) 44.4 BMI Classification Obese Vital Signs Temperature (97.8 F-99.1 F) 96 F L Temperature Source Temporal Pulse Rate (60-100) 102 H Pulse Location Monitor Respiratory Rate (12-18) 18 Respiratory rate source Observation Blood Pressure (90/60-120/80) 138/69 H Blood Pressure Mean (mm Hg) 92 Source Monitor History Since Last Visit- (Skip if this is Patient's initial visit) Have you changed medications since your No last visit? Any new allergies or adverse reactions No Had a fall/change in ADL's that may No increase risk of falls Signs or symptoms of abuse and/or No neglect since last visit Have you been in the hospital since your No last visit? Has dressing in place as prescribed Yes Has offloadiing in place as prescribed Yes Experienced any changes in pain level or No management Pain Scale: 0-10 Numeric Is Patient Pain Free? Yes - Nurse 1 - General Ulcer Measurement Start: 05/18/24 08:25 Freq: Status: Active Protocol: Activity Type Activity Date Activity User E-sign Co-sign Detail Recorded Client Recorded Date Recorded By Document 05/18/24 08:25 DL [id number] 05/18/24 08:33 DL 05/18/24 08:25 Wound Center Nurse 1 #4 RT LAT ANKLE -Current Size (cm) - Length 0.1 -Current Size (cm) - Width 0.1 -Current Size (cm) - Depth 0.1 -Total Square Cm 0.01 -Exudate Amt None Present -Wound Margin Distinct, Outline Attached -Granulation Amt None Present (0 %) -Necrosis Amt Large (67-100%) -Necrotic Tissue Type Eschar -Structure Exposed N/A -Texture (Michell-wound Skin Appearance) Scarring -Moisture (Michell-wound Skin Appearance) No Abnormality -Color (Michell-wound Skin Appearance) No Abnormality -Temperature (Michell-wound Skin No Abnormality Appearance) (Pt Warm) -Tenderness on Palpation (Michell-wound No Skin Appearance) -Ulcer Cleansing Soap and Water -Foul Odor after Cleansing Yes, Due to Product Use -Anesthetic Used 5% Lidocaine Gel Right Calf (cm) 44.5 Right Ankle (cm) 25.5 WC - Nurse 2 - General Ulcer CM Notes Start: 05/18/24 08:25 Freq: Status: Active Protocol: Activity Type Activity Date Activity User E-sign Co-sign Detail Recorded Client Recorded Date Recorded By Document 05/18/24 08:41 SALLY [id number] 05/18/24 08:43 SALLY 05/18/24 08:41 Wound Center Nurse 2 #4 RT LAT ANKLE -Time 08:42 -Correct Patient Yes -Correct Side, Site, Position Yes -Correct Procedure Yes -Procedure Performed Yes -Type of Procedure Debridement -Clinical Debridement Subcutaneous -Tissue Removed Subcutaneous -Post Debridement (cm) - Length 0.8 -Post Debridement (cm) - Width 1.2 -Post Debridement (cm) - Depth 0.1 -Total Square (Post) (cm) 0.96 -Area of Debridement (cm) - Length 0.8 -Area of Debridement (cm) - Width 1.2 -Total Square (Area) (cm) 0.96 -Tunneling No -Undermining/Tunneling No -Circular Undermining No -Wound/Ulcer Outcome Not Healed -Ulcer Cleansing Rinsed/ Irrigated with Saline -Foul Odor after Cleansing No -Bioengineered Tissue No -Bleeding Controlled with Pressure -Treatment Response Procedure Tolerated Well -Offloading No -Debridement - Subq, 1st 20sq cm Yes Pain Scale: 0-10 Numeric Is Patient Pain Free? Yes Assessment/Plan Assessment/Plan (1) Non-pressure chronic ulcer of right ankle with fat layer exposed: CODE(S): L97.312 - Non-pressure chronic ulcer of right ankle with fat layer exposed PLAN: Patient was examined and evaluated. All findings were discussed with the patient. All questions were answered to the patient's satisfaction. Excisional debridement down to and including subcutaneous tissue to the right lateral ankle full-thickness ulceration with a number 3 mm dermal curette without incident.. Right measurement was 0.5 x 1.0 x 0.1 cm. Postdebridement measurement is 0.8 x 1.2 x 0.1 cm. Right lower extremities were cleaned and patted dry. Rafaela was applied followed by dry sterile dressing and Tubigrip. Recommended to the nurse with the patient today to get him a Multi-Podus boot to allow his foot to be better protected instead of using a Prevalon pillow boot. I believe that the recurrence of the wound was done from trauma either from too much pressure from the patient's motorized wheelchair or from moving the patient in bed. Educated the nurse again with the patient to make sure that they are watching out when changing the patient's dressing as well as educating the patient that need he needs to be aware where his foot is in space especially because he has neuropathy and does not feel pressure or pain to the right lower extremity. I did discuss with the patient surgical intervention to the right lower extremity consisting of tibial talocalcaneal arthrodesis with intermittently alona to allow the foot to stay out of a varus position and keep his foot more rectus but this will be planned at a later date as we are still healing the patient's a full-thickness wound. Follow-up at the wound care center with Dr. Sarah in 1 week.
[2024-06-01 08:28] VITALS: BP 108/81; PULSE 100; RESP 16; TEMP 36.2; BMI 44.4
--- NOTE | 2024-06-01 09:14 | PN.PCM_ITS ---
History of Present Illness Date of Service: 06/01/24 Chief Complaint: Bilateral leg wounds. History of Wound: By leg wounds. Progress of Wound: Patient has a chronic full-thickness ulceration to the lateral ankle at the level of the fibula to the right lower extremity due to his ankle varus deformity. 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 Subjective Subjective Mr. Olivares is a 78-year-old diabetic male presenting to the wound care center today follow-up evaluation of full-thickness wound to the right ankle at the level of the fibula. Patient's BKA site is healed. 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 His blood sugars well-controlled. He does deny any trauma to the right lower extremity. Denies constitutional symptoms. No pedal complaints at this time. Objective Data Objective Data Vital Signs: Vital Signs Temp Pulse Resp BP O2 Del Method 97.2 F L 100 16 108/81 H Room Air 06/01/24 08:28 06/01/24 08:28 06/01/24 08:28 06/01/24 08:28 06/01/24 08:28 Oxygen Delivery Method Room Air Weight: 161.479 kg Body Mass Index (BMI) 44.4 Physical Exam Narrative Vascular: DP and PT pulses are faintly palpable to the right lower extremity. CFT is brisk to the bilateral lower extremity. No erythema or proximal streaking appreciated. Neurological: Light touch intact. Protective sensation is absent. Dermatological: Full-thickness ulceration to the right lateral ankle measuring 0.9 x 1.7 x 0.2 cm. Excisional debridement down to and including subcutaneous tissue to the right lateral ankle full-thickness ulceration with a number 3 mm dermal curette without incident. Predebridement measurement is 0.8 x 0.6 x 0.1 cm. Postdebridement measurement is 0.9 x 1.7 x 0.2 cm. Musculoskeletal: Evidence of varus contracture to the right ankle. Patient is nonambulatory and resides in wheelchair. No pain with calf pressure bilateral. Debridement Note Debridement Note Debridement Free Text: Excisional debridement down to and including subcutaneous tissue to the right lateral ankle full-thickness ulceration with a number 3 mm dermal curette without incident. Predebridement measurement is 0.8 x 0.6 x 0.1 cm. Postdebridement measurement is 0.9 x 1.7 x 0.2 cm. 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 RESEARCH (Physician/DIRECTOR OF INSTITUTIONAL RESEARCH ) ) Arrival Mode Wheelchair Wheelchair Transfer Assistance None None Accompanied by fpc nurse Patient Identification Verified (Name & Yes Yes ) Patient Requires Transmission-Based No No Precautions Height and Weight Body Mass Index (BMI) 44.4 44.4 BMI Classification Obese Obese Vital Signs Temperature (97.8 F-99.1 F) 96 F L 97.2 F L Temperature Source Temporal Temporal Pulse Rate (60-100) 102 H 100 Pulse Location Monitor Monitor Respiratory Rate (12-18) 18 16 Respiratory rate source Observation Observation Oxygen Delivery Method Room Air Blood Pressure (90/60-120/80) 138/69 H 108/81 H Blood Pressure Mean (mm Hg) 92 90 Source Monitor Monitor Position Sitting Blood Pressure Location Right Forearm History Since Last Visit- (Skip if this is Patient's initial visit) Have you changed medications since your No No last visit? Any new allergies or adverse reactions No No Had a fall/change in ADL's that may No No increase risk of falls Signs or symptoms of abuse and/or No No neglect since last visit Have you been in the hospital since your No No last visit? Has dressing in place as prescribed Yes Yes Has compression in place as prescribed Yes Has offloadiing in place as prescribed Yes Yes Experienced any changes in pain level or No No management Right Footwear No Footwear Pain Scale: 0-10 Numeric Is Patient Pain Free? Yes Yes - Nurse 1 - General Ulcer Measurement Start: 05/18/24 08:25 Freq: Status: Active Protocol: Activity Type Activity Date Activity User E-sign Co-sign Detail Recorded Client Recorded Date Recorded By Document 05/18/24 08:25 DL [id number] 05/18/24 08:33 DL Document 06/01/24 08:28 GM [id number] 06/01/24 08:37 GM 05/18/24 06/01/24 08:25 08:28 Wound Center Nurse 1 #4 RT LAT ANKLE -Current Size (cm) - Length 0.1 1 -Current Size (cm) - Width 0.1 1.7 -Current Size (cm) - Depth 0.1 0.1 -Total Square Cm 0.01 1.7 -Date of Last Picture (Recall this 06/01/24 field) -Photo Taken Yes -Epithelialization Medium 34-66% -Tunneling No -Undermining/Tunneling No -Circular Undermining No -Exudate Amt None Present Medium -Exudate Type Yellow/Green -Wound Margin Distinct, Distinct, Outline Outline Attached Attached -Granulation Amt None Present (0 Medium (34-66%) %) -Granulation Quality Calypso -Slough/Fibrin No -Necrosis Amt Large (67-100%) -Necrotic Tissue Type Eschar -Structure Exposed N/A -Texture (Michell-wound Skin Appearance) Scarring Assessed -Moisture (Michell-wound Skin Appearance) No Abnormality Assessed -Color (Michell-wound Skin Appearance) No Abnormality Assessed, Erythema -Temperature (Michell-wound Skin No Abnormality No Abnormality Appearance) (Pt Warm) (Pt Warm) -Tenderness on Palpation (Michell-wound No Skin Appearance) -Ulcer Cleansing Soap and Water Soap and Water -Foul Odor after Cleansing Yes, Due to No Product Use -Anesthetic Used 5% Lidocaine 5% Lidocaine Gel Gel Right Calf (cm) 44.5 Right Ankle (cm) 25.5 WC - Nurse 2 - General Ulcer CM Notes Start: 05/18/24 08:25 Freq: Status: Active Protocol: Activity Type Activity Date Activity User E-sign Co-sign Detail Recorded Client Recorded Date Recorded By Document 05/18/24 08:41 JF [id number] 05/18/24 08:43 JF Document 06/01/24 08:42 [id number] 06/01/24 08:50 JF 05/18/24 06/01/24 08:41 08:42 Wound Center Nurse 2 #4 RT LAT ANKLE -Time 08:42 08:46 -Correct Patient Yes Yes -Correct Side, Site, Position Yes Yes -Correct Procedure Yes Yes -Procedure Performed Yes Yes -Type of Procedure Debridement Debridement -Clinical Debridement Subcutaneous Subcutaneous -Tissue Removed Subcutaneous Subcutaneous -Post Debridement (cm) - Length 0.8 0.9 -Post Debridement (cm) - Width 1.2 1.7 -Post Debridement (cm) - Depth 0.1 0.2 -Total Square (Post) (cm) 0.96 1.53 -Area of Debridement (cm) - Length 0.8 0.9 -Area of Debridement (cm) - Width 1.2 1.7 -Total Square (Area) (cm) 0.96 1.53 -Tunneling No No -Undermining/Tunneling No No -Circular Undermining No No -Wound/Ulcer Outcome Not Healed Not Healed -Ulcer Cleansing Rinsed/ Rinsed/ Irrigated with Irrigated with Saline Saline -Foul Odor after Cleansing No No -Bioengineered Tissue No No -Bleeding Controlled with Pressure Pressure -Treatment Response Procedure Procedure Tolerated Well Tolerated Well -Offloading No Yes -Type of Offloading Other -Other Type of Offloading multi-podus splint -Debridement - Subq, 1st 20sq cm Yes Yes Pain Scale: 0-10 Numeric Is Patient Pain Free? Yes Yes - Nurse 3 - General Ulcer D/C NN Start: 05/18/24 08:25 Freq: Status: Active Protocol: Activity Type Activity Date Activity User E-sign Co-sign Detail Recorded Client Recorded Date Recorded By Document 06/01/24 09:00 [id number] 06/01/24 09:05 06/01/24 09:00 Wound Care Center Nurse 3 #4 RT LAT ANKLE -Primary Dressing Applied Mepilex Border, Promogran Rafaela Matter -Mepilex Border 1 -Promogran Rafaela Matter 1 Left -Tubular Bandage Single Layer -Size of Tubigrip Used Size E -Size E ($) 1 Right -Tubular Bandage Double Layer -Size of Tubigrip Used Size E -Size E ($) 2 Pain Scale: 0-10 Numeric Is Patient Pain Free? Yes WC - Visit Discharge Discharge Condition Stable Ambulatory Status Wheelchair Medication Reconcilliation completed & No provided to patient/care provider Clinical Summary of Care Provided Yes Assessment/Plan Assessment/Plan (1) Non-pressure chronic ulcer of right ankle with fat layer exposed: CODE(S): L97.312 - Non-pressure chronic ulcer of right ankle with fat layer exposed PLAN: Patient was examined and evaluated. All findings were discussed with the patient. All questions were answered to the patient's satisfaction. Excisional debridement down to and including subcutaneous tissue to the right lateral ankle full-thickness ulceration with a number 3 mm dermal curette without incident. Predebridement measurement is 0.8 x 0.6 x 0.1 cm. Postdebridement measurement is 0.9 x 1.7 x 0.2 cm. Right lower extremities were cleaned and patted dry. Rafaela was applied followed by dry sterile dressing and Tubigrip. Recommended to the nurse with the patient today to get him a Multi- Podus boot to allow his foot to be better protected instead of using a Prevalon pillow boot. It was again further discussed with the patient that the recurrence of breakdown of the lateral right ankle wound is due to his varus deformity at the level of the ankle. I did discuss surgical intervention and conservative treatment. The patient is feels like we have exhausted all conservative treatment and would like to move forward with major reconstructive surgery to the right lower extremity with tibial talocalcaneal arthrodesis with intramedullary nail fixation. Risk and benefits were discussed with the patient in great detail. Will plan for sometime in July for surgical intervention unless the wound overall improves. Follow-up at the wound care center with Dr. Sarah in 2 to 3 week. 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
== END 2024-06-14 23:59 | disposition home or self-care (01) ==
LOC: WC 08:30
PROVIDERS: PCP Internal Medicine Infectious Disease; Referring Provider Internal Medicine Infectious Disease; Visit Provider Podiatrist Foot & Ankle Surgery
DX: L97.312 Non-pressure chronic ulcer of right ankle with fat layer exposed (principal); E11.622 Type 2 diabetes mellitus with other skin ulcer; Z89.519 Acquired absence of unspecified leg below knee; E11.42 Type 2 diabetes mellitus with diabetic polyneuropathy; Z99.3 Dependence on wheelchair; M19.071 Primary osteoarthritis, right ankle and foot; M67.01 Short Achilles tendon (acquired), right ankle; M24.574 Contracture, right foot
CPT/HCPCS: 11042

== ENCOUNTER 2024-07-13 08:00 | Outpatient (RCR) | payer OTHER, MEDICAID, SELFPAY ==
[2024-06-15 00:46] VITALS: BP 84/34; PULSE 114; RESP 18; TEMP 35.9; BMI 44.4
[2024-06-22 08:06] VITALS: BP 131/91; PULSE 85; RESP 15; TEMP 35.7; BMI 44.4
--- NOTE | 2024-06-22 10:25 | PN.PCM_ITS ---
History of Present Illness Date of Service: 06/22/24 Chief Complaint: Bilateral leg wounds. History of Wound: By leg wounds. Progress of Wound: Patient has a chronic full-thickness ulceration to the lateral ankle at the level of the fibula to the right lower extremity due to his ankle varus deformity. 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 Subjective Subjective Mr. Olivares is a 79-year-old diabetic male presenting for weakness and today follow-up evaluation of full-thickness wound to lateral right ankle. Patient has been getting dressing changes as ordered. He mitts improvement to his wound. His blood sugars well-controlled. He denies trauma. Denies constitutional symptoms. No pain complaints at this time. Objective Data Objective Data Vital Signs: Vital Signs Temp Pulse Resp BP 96.3 F L 85 15 131/91 H 06/22/24 08:06 06/22/24 08:06 06/22/24 08:06 06/22/24 08:06 Weight: 161.479 kg Body Mass Index (BMI) 44.4 Physical Exam Narrative Vascular: DP and PT pulses are faintly palpable to the right lower extremity. CFT is brisk to the bilateral lower extremity. No erythema or proximal streaking appreciated. Neurological: Light touch intact. Protective sensation is absent. Dermatological: Full-thickness ulceration to the right lateral ankle measuring 0.6 x 1.3 x 0.2 cm. Excisional debridement down to and including subcutaneous tissue to the right lateral ankle full-thickness ulceration with a number 3 mm dermal curette without incident. Predebridement measurement is 0.5 x 1.0 x 0.1 cm. Postdebridement measurement is 0.6 x 1.3 x 0.2 cm. Musculoskeletal: Evidence of varus contracture to the right ankle. Patient is nonambulatory and resides in wheelchair. No pain with calf pressure bilateral. Debridement Note Debridement Note Debridement Free Text: Excisional debridement down to and including subcutaneous tissue to the right lateral ankle full-thickness ulceration with a number 3 mm dermal curette without incident. Predebridement measurement is 0.5 x 1.0 x 0.1 cm. Postdebridement measurement is 0.6 x 1.3 x 0.2 cm. Post-Debridement Measurements and Additional Note: Post-Debridement Measurements/Treatment WC - Nurse 1 - General Ulcer Assessment Start: 06/22/24 08:05 Freq: Status: Active Protocol: FABIENNE Activity Type Activity Date Activity User E-sign Co-sign Detail Recorded Client Recorded Date Recorded By Document 06/22/24 08:06 ML [id number] 06/22/24 08:11 ML 06/22/24 08:06 WC - Today's Visit Information Type of service Follow-up Visit (Physician/CHEMISTRY RESEARCH ASSISTANT ) Arrival Mode Wheelchair Transfer Assistance None Patient Identification Verified (Name & Yes ) Patient Requires Transmission-Based No Precautions Height and Weight Body Mass Index (BMI) 44.4 BMI Classification Obese Vital Signs Temperature (97.8 F-99.1 F) 96.3 F L Temperature Source Temporal Pulse Rate (60-100) 85 Pulse Location Monitor Respiratory Rate (12-18) 15 Respiratory rate source Observation Blood Pressure (90/60-120/80) 131/91 H Blood Pressure Mean (mm Hg) 104 Source Monitor Position Sitting Blood Pressure Location Right Forearm History Since Last Visit- (Skip if this is Patient's initial visit) Have you changed medications since your No last visit? Any new allergies or adverse reactions No Had a fall/change in ADL's that may No increase risk of falls Signs or symptoms of abuse and/or No neglect since last visit Have you been in the hospital since your No last visit? Has dressing in place as prescribed Yes Has compression in place as prescribed N/A Has offloadiing in place as prescribed N/A Experienced any changes in pain level or No management Pain Scale: 0-10 Numeric Is Patient Pain Free? Yes - Nurse 1 - General Ulcer Measurement Start: 06/22/24 08:05 Freq: Status: Active Protocol: Activity Type Activity Date Activity User E-sign Co-sign Detail Recorded Client Recorded Date Recorded By Document 06/22/24 08:06 ML [id number] 06/22/24 08:11 ML 06/22/24 08:06 Wound Center Nurse 1 #4 RT LAT ANKLE -Current Size (cm) - Length 0.5 -Current Size (cm) - Width 1 -Current Size (cm) - Depth 0.2 -Total Square Cm 0.5 -Exudate Amt Small -Exudate Type Serosanguineous -Wound Margin Distinct, Outline Attached -Granulation Amt Medium (34-66%) -Necrosis Amt Small (1-33%) -Necrotic Tissue Type Adherent Slough -Texture (Michell-wound Skin Appearance) Assessed -Moisture (Michell-wound Skin Appearance) Assessed -Color (Michell-wound Skin Appearance) Assessed -Temperature (Michell-wound Skin No Abnormality Appearance) (Pt Warm) -Tenderness on Palpation (Michell-wound No Skin Appearance) -Ulcer Cleansing Rinsed/ Irrigated with Saline -Foul Odor after Cleansing Yes -Anesthetic Used 5% Lidocaine Gel - Nurse 2 - General Ulcer CM Notes Start: 06/22/24 08:05 Freq: Status: Active Protocol: Activity Type Activity Date Activity User E-sign Co-sign Detail Recorded Client Recorded Date Recorded By Document 06/22/24 08:36 SALLY [id number] 06/22/24 08:38 SALLY 06/22/24 08:36 Wound Center Nurse 2 -Time 08:37 -Correct Patient Yes -Correct Side, Site, Position Yes -Correct Procedure Yes -Procedure Performed Yes -Type of Procedure Debridement -Clinical Debridement Subcutaneous -Tissue Removed Subcutaneous -Tunneling No -Undermining/Tunneling No -Circular Undermining No -Wound/Ulcer Outcome Not Healed -Ulcer Cleansing Rinsed/ Irrigated with Saline -Foul Odor after Cleansing No -Bioengineered Tissue No -Bleeding Controlled with Pressure -Treatment Response Procedure Tolerated Well -Offloading No -Debridement - Subq, 1st 20sq cm Yes Pain Scale: 0-10 Numeric Is Patient Pain Free? Yes - Nurse 3 - General Ulcer D/C NN Start: 06/22/24 08:05 Freq: Status: Active Protocol: Activity Type Activity Date Activity User E-sign Co-sign Detail Recorded Client Recorded Date Recorded By Document 06/22/24 08:43 [email or web address] [id number] 06/22/24 08:44 06/22/24 08:43 Wound Care Center Nurse 3 #4 RT LAT ANKLE -Primary Dressing Applied Mepilex Border, Promogran Rafaela Matter -Mepilex Border 1 -Promogran Rafaela Matter 1 Right -Tubular Bandage Double Layer -Size of Tubigrip Used Size E -Size E ($) 2 Pain Scale: 0-10 Numeric Is Patient Pain Free? Yes WC - Visit Discharge Discharge Condition Stable Ambulatory Status Walker Medication Reconcilliation completed & No provided to patient/care provider Clinical Summary of Care Provided Yes Assessment/Plan Assessment/Plan (1) Non-pressure chronic ulcer of right ankle with fat layer exposed: CODE(S): L97.312 - Non-pressure chronic ulcer of right ankle with fat layer exposed PLAN: Patient was examined and evaluated. All findings were discussed with the patient. All questions were answered to the patient's satisfaction. Excisional debridement down to and including subcutaneous tissue to the right lateral ankle full-thickness ulceration with a number 3 mm dermal curette without incident. Predebridement measurement is 0.5 x 1.0 x 0.1 cm. Postdebridement measurement is 0.6 x 1.3 x 0.2 cm. Right lower extremity were cleaned and patted dry. Rafaela was applied to the full-thickness wound followed by dry sterile dressing and Tubigrip. Patient will continue to use the Multi- Podus boot. After further discussion with the patient we will move forward with a AFO to the right lower extremity so the patient can begin to weight-bear as tolerated with prosthesis to the left lower extremity. If the patient fails conservative treatment using the AFO and continues to breakdown to the right lower extremity we will move forward with TTC arthrodesis with intervention nail. Follow-up at the wound care center with Dr. Sarah in 2 week.. 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
[2024-07-13 08:10] VITALS: BP 131/77; PULSE 88; RESP 18; BMI 44.4
--- NOTE | 2024-07-13 09:06 | PCM.WC.PN ---
History of Present Illness Date of Service: 06/22/24 Chief Complaint: Bilateral leg wounds. History of Wound: By leg wounds. Progress of Wound: Patient has a chronic full-thickness ulceration to the lateral ankle at the level of the fibula to the right lower extremity due to his ankle varus deformity. 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 Subjective Subjective Mr. Olivares is a 79-year-old diabetic male presenting for weakness and today follow-up evaluation of full-thickness wound to lateral right ankle. Patient has been getting dressing changes long-term facility as written. He denies any new wounds to the bilateral lower extremity. Patient's blood sugars well-controlled. 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 He has gotten a new machine rigger to the left BKA stump. Denies trauma. Denies constitutional symptoms. In the pedal complaints at this time. Objective Data Objective Data Vital Signs: Vital Signs Temp Pulse Resp BP 96.3 F L 88 18 131/77 H 06/22/24 08:06 07/13/24 08:10 07/13/24 08:10 07/13/24 08:10 Weight: 161.479 kg Body Mass Index (BMI) 44.4 Physical Exam Narrative Vascular: DP and PT pulses are faintly palpable to the right lower extremity. CFT is brisk to the bilateral lower extremity. No erythema or proximal streaking appreciated. Neurological: Light touch intact. Protective sensation is absent. Dermatological: Full-thickness ulceration to the right lateral ankle measuring 0.5 x 1.2 x 0.2 cm Excisional debridement down to and including subcutaneous tissue to the right lateral ankle full-thickness ulceration with a number 3 mm dermal curette without incident. Predebridement measurement is 0.4 x 0.4 x 0.1 cm. Postdebridement measurement is 0.5 x 1.2 x 0.2 cm. Musculoskeletal: Evidence of varus contracture to the right ankle. Patient is nonambulatory and resides in wheelchair. No pain with calf pressure bilateral. Debridement Note Debridement Note Debridement Free Text: Excisional debridement down to and including subcutaneous tissue to the right lateral ankle full-thickness ulceration with a number 3 mm dermal curette without incident. Predebridement measurement is 0.4 x 0.4 x 0.1 cm. Postdebridement measurement is 0.5 x 1.2 x 0.2 cm. Post-Debridement Measurements and Additional Note: Post-Debridement Measurements/Treatment WC - Nurse 1 - General Ulcer Assessment Start: 06/22/24 08:05 Freq: Status: Active Protocol: FABIENNE Activity Type Activity Date Activity User E-sign Co-sign Detail Recorded Client Recorded Date Recorded By Document 06/22/24 08:06 ML [id number] 06/22/24 08:11 ML Document 07/13/24 08:10 KW [id number] 07/13/24 08:13 KW 06/22/24 07/13/24 08:06 08:10 WC - Today's Visit Information Type of service Follow-up Visit Follow-up Visit (Physician/FINE DINING SERVER (Physician/FINE DINING SERVER ) ) Arrival Mode Wheelchair Wheelchair Transfer Assistance None None Patient Identification Verified (Name & Yes Yes ) Patient Requires Transmission-Based No No Precautions Height and Weight Body Mass Index (BMI) 44.4 44.4 BMI Classification Obese Obese Vital Signs Temperature (97.8 F-99.1 F) 96.3 F L Temperature Source Temporal Pulse Rate (60-100) 85 88 Pulse Location Monitor Monitor Respiratory Rate (12-18) 15 18 Respiratory rate source Observation Observation Blood Pressure (90/60-120/80) 131/91 H 131/77 H Blood Pressure Mean (mm Hg) 104 95 Source Monitor Monitor Position Sitting Blood Pressure Location Right Forearm History Since Last Visit- (Skip if this is Patient's initial visit) Have you changed medications since your No No last visit? Any new allergies or adverse reactions No No Had a fall/change in ADL's that may No No increase risk of falls Signs or symptoms of abuse and/or No No neglect since last visit Have you been in the hospital since your No No last visit? Has dressing in place as prescribed Yes Yes Has compression in place as prescribed N/A Yes Has offloadiing in place as prescribed N/A Yes Experienced any changes in pain level or No No management Pain Scale: 0-10 Numeric Is Patient Pain Free? Yes Yes JOANA Robins Nurse 1 - General Ulcer Measurement Start: 06/22/24 08:05 Freq: Status: Active Protocol: Activity Type Activity Date Activity User E-sign Co-sign Detail Recorded Client Recorded Date Recorded By Document 06/22/24 08:06 ML [id number] 06/22/24 08:11 ML Document 07/13/24 08:10 KW [id number] 07/13/24 08:13 KW 06/22/24 07/13/24 08:06 08:10 Wound Center Nurse 1 #4 RT LAT ANKLE -Current Size (cm) - Length 0.5 0.4 -Current Size (cm) - Width 1 0.5 -Current Size (cm) - Depth 0.2 0.2 -Total Square Cm 0.5 0.20 -Photo Taken Yes -Exudate Amt Small Small -Exudate Type Serosanguineous Serosanguineous -Wound Margin Distinct, Thickened Outline Attached -Granulation Amt Medium (34-66%) Small (1-33%) -Granulation Quality [place] -Necrosis Amt Small (1-33%) Small (1-33%) -Necrotic Tissue Type Adherent Slough Adherent Slough -Structure Exposed N/A -Texture (Michell-wound Skin Appearance) Assessed Scarring -Moisture (Michell-wound Skin Appearance) Assessed No Abnormality -Color (Michell-wound Skin Appearance) Assessed No Abnormality, Hemosiderin Staining -Temperature (Michell-wound Skin No Abnormality No Abnormality Appearance) (Pt Warm) (Pt Warm) -Tenderness on Palpation (Michell-wound No Skin Appearance) -Ulcer Cleansing Rinsed/ Soap and Water Irrigated with Saline -Foul Odor after Cleansing Yes No -Anesthetic Used 5% Lidocaine 5% Lidocaine Gel Gel WC - Nurse 2 - General Ulcer CM Notes Start: 06/22/24 08:05 Freq: Status: Active Protocol: Activity Type Activity Date Activity User E-sign Co-sign Detail Recorded Client Recorded Date Recorded By Document 06/22/24 08:36 [id number] 06/22/24 08:38 Document 07/13/24 08:30 [id number] 07/13/24 08:31 JF 06/22/24 07/13/24 08:36 08:30 Wound Center Nurse 2 #4 RT LAT ANKLE -Time 08:37 08:30 -Correct Patient Yes Yes -Correct Side, Site, Position Yes Yes -Correct Procedure Yes Yes -Procedure Performed Yes Yes -Type of Procedure Debridement Debridement -Clinical Debridement Subcutaneous Subcutaneous -Tissue Removed Subcutaneous Subcutaneous -Tunneling No No -Undermining/Tunneling No No -Circular Undermining No No -Wound/Ulcer Outcome Not Healed Not Healed -Ulcer Cleansing Rinsed/ Rinsed/ Irrigated with Irrigated with Saline Saline -Foul Odor after Cleansing No No -Bioengineered Tissue No No -Bleeding Controlled with Pressure Pressure -Treatment Response Procedure Procedure Tolerated Well Tolerated Well -Offloading No Yes -Type of Offloading Camwalker -Debridement - Subq, 1st 20sq cm Yes Yes Pain Scale: 0-10 Numeric Is Patient Pain Free? Yes Yes - Nurse 3 - General Ulcer D/C NN Start: 06/22/24 08:05 Freq: Status: Active Protocol: Activity Type Activity Date Activity User E-sign Co-sign Detail Recorded Client Recorded Date Recorded By Document 06/22/24 08:43 KW [id number] 06/22/24 08:44 KW Document 07/13/24 08:39 KW [id number] 07/13/24 08:40 KW 06/22/24 07/13/24 08:43 08:39 Wound Care Center Nurse 3 #4 RT LAT ANKLE -Primary Dressing Applied Mepilex Border, Promogran Rafaela Matter -Primary Dressing Applied Promogran Rafaela Matter, Silicone Border Foam 4x4 -Mepilex Border 1 -Promogran Rafaela Matter 1 1 -Silicone Border Foam 4x4 1 Right -Tubular Bandage Double Layer Double Layer -Size of Tubigrip Used Size E Size E -Size E ($) 2 2 Pain Scale: 0-10 Numeric Is Patient Pain Free? Yes Yes - Visit Discharge Discharge Condition Stable Stable Ambulatory Status Walker Wheelchair Medication Reconcilliation completed & No No provided to patient/care provider Clinical Summary of Care Provided Yes Yes Assessment/Plan Assessment/Plan (1) Non-pressure chronic ulcer of right ankle with fat layer exposed: CODE(S): L97.312 - Non-pressure chronic ulcer of right ankle with fat layer exposed PLAN: Patient was examined and evaluated. All findings were discussed with the patient. All questions were answered to the patient's satisfaction. Excisional debridement down to and including subcutaneous tissue to the right lateral ankle full-thickness ulceration with a number 3 mm dermal curette without incident. Predebridement measurement is 0.4 x 0.4 x 0.1 cm. Postdebridement measurement is 0.5 x 1.2 x 0.2 cm. Right lower extremities were cleaned and patted dry. Moist Rafaela was applied to the full-thickness wound to the lateral aspect of the right ankle followed by dry sterile dressing and Tubigrip. Patient will continue to use his Multi-Podus boot. Patient will reach out to the office to make an appointment to have a casting for an AFO to the right lower extremity. Educated the patient that if he fails conservative treatment removed forward with TTC arthrodesis with intramedullary nail Follow-up at the wound care center with Dr. Sarah in 2 week. 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
--- NOTE | 2024-07-13 13:37 | WC ---
PHOTO RIGHT LATERAL ANKLE 07/13/24
== END 2024-07-15 23:59 | disposition home or self-care (01) ==
LOC: WC 08:00
PROVIDERS: PCP Internal Medicine Infectious Disease; Referring Provider Internal Medicine Infectious Disease; Visit Provider Podiatrist Foot & Ankle Surgery
DX: E11.622 Type 2 diabetes mellitus with other skin ulcer (principal); L97.312 Non-pressure chronic ulcer of right ankle with fat layer exposed; Z89.512 Acquired absence of left leg below knee; E11.42 Type 2 diabetes mellitus with diabetic polyneuropathy; M19.071 Primary osteoarthritis, right ankle and foot; M24.574 Contracture, right foot; M67.01 Short Achilles tendon (acquired), right ankle
CPT/HCPCS: 11042

== ENCOUNTER 2024-08-10 08:15 | Outpatient (RCR) | payer OTHER, MEDICAID, SELFPAY ==
[2024-07-16 01:09] VITALS: BP 131/77; PULSE 88; RESP 18; TEMP 35.7; BMI 44.4
[2024-07-27 08:07] VITALS: BP 111/64; PULSE 89; RESP 14; TEMP 35.7; BMI 44.4
--- NOTE | 2024-07-27 09:22 | PCM.WC.PN ---
History of Present Illness Date of Service: 07/27/24 Chief Complaint: Right leg cellulitis History of Wound: Right leg cellulitis and full-thickness wound Progress of Wound: Patient presenting today for worsening right leg cellulitis after developing an infection a few weeks ago. He was seen in [facility] and [facility] for IV antibiotics and discharged on oral antibiotics. Presenting with stable lateral ankle ulcer but cellulitis that is being treated with oral antibiotics right lower extremity. Subjective Subjective Mr. 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 He has a chronic full-thickness wound to the lateral right leg. He was recently hospitalized for 2 days at [facility] and was given IV antibiotics. Discharged on oral antibiotics and seen today in the wound care center for evaluation. Patient has kept his leg in a dependent position longer than 8 hours/day in his wheelchair. He is currently nonambulatory. When asked about elevating he does not elevate his leg and is not wearing compression at this time. Treatment has been with Adaptic and dry sterile dressing. He admits to improved redness. He denies any drainage or pain to the right lower extremity. Blood sugars well-controlled. No other pedal complaints at this time. Denies trauma. Denies constitutional symptoms. Objective Data Objective Data Vital Signs: Vital Signs Temp Pulse Resp BP 96.3 F L 89 14 111/64 07/27/24 08:07 07/27/24 08:07 07/27/24 08:07 07/27/24 08:07 Weight: 161.479 kg Body Mass Index (BMI) 44.4 Physical Exam Narrative Vascular: DP and PT pulses are faintly palpable to the right lower extremity. CFT is brisk to the bilateral lower extremity. Evidence of blanchable erythema with proximal streaking that is improving to the right lower extremity. Neurological: Light touch intact. Protective sensation is absent. Dermatological: Full-thickness wound to the right lateral ankle measuring 0.8 x 1.5 x 0.1 cm. Right lateral foot cluster full-thickness wound measuring 3.2 x 0.7 x 0.1 cm. All wounds are granular. No active drainage. Blanchable erythema with improved proximal streaking to the right lower extremity. Excisional debridement down to and including subcutaneous tissue to the right lateral ankle full-thickness ulceration with a number 3 mm dermal curette without incident. Predebridement measurement is 0.7 x 1.3 x 0.1 cm. Postdebridement measurement is 0.8 x 1.5 x 0.1 cm. Patient was debridement down to including subcutaneous tissue of the right lateral foot cluster ulceration with a number 3 mm dermal curette without incident. Predebridement measurement was 3.0 x 0.5 x 0.1 cm. Postdebridement measurement is 3.2 x 0.7 x 0.1 cm. Musculoskeletal: Evidence of varus contracture to the right ankle. Patient is nonambulatory and resides in wheelchair. No pain with calf pressure bilateral. Debridement Note Debridement Note Debridement Free Text: Excisional debridement down to and including subcutaneous tissue to the right lateral ankle full-thickness ulceration with a number 3 mm dermal curette without incident. Predebridement measurement is 0.7 x 1.3 x 0.1 cm. Postdebridement measurement is 0.8 x 1.5 x 0.1 cm. Patient was debridement down to including subcutaneous tissue of the right lateral foot cluster ulceration with a number 3 mm dermal curette without incident. Predebridement measurement was 3.0 x 0.5 x 0.1 cm. Postdebridement measurement is 3.2 x 0.7 x 0.1 cm. Post-Debridement Measurements and Additional Note: Post-Debridement Measurements/Treatment - Nurse 1 - General Ulcer Assessment Start: 07/27/24 08:07 Freq: Status: Active Protocol: WC.LOWEXT Activity Type Activity Date Activity User E-sign Co-sign Detail Recorded Client Recorded Date Recorded By Document 07/27/24 08:07 ML [id number] 07/27/24 08:25 ML 07/27/24 08:07 - Today's Visit Information Type of service Follow-up Visit (Physician/STRAINER TENDER ) Arrival Mode Wheelchair Transfer Assistance Jackelyn Lift Patient Identification Verified (Name & Yes ) Patient Requires Transmission-Based No Precautions Height and Weight Body Mass Index (BMI) 44.4 BMI Classification Obese Vital Signs Temperature (97.8 F-99.1 F) 96.3 F L Temperature Source Temporal Pulse Rate (60-100) 89 Pulse Location Monitor Respiratory Rate (12-18) 14 Respiratory rate source Observation Blood Pressure (90/60-120/80) 111/64 Blood Pressure Mean (mm Hg) 79 Source Monitor History Since Last Visit- (Skip if this is Patient's initial visit) Have you changed medications since your No last visit? Any new allergies or adverse reactions No Had a fall/change in ADL's that may No increase risk of falls Signs or symptoms of abuse and/or No neglect since last visit Have you been in the hospital since your Yes last visit? Has dressing in place as prescribed Yes Has compression in place as prescribed N/A Has offloadiing in place as prescribed N/A Experienced any changes in pain level or No management Pain Scale: 0-10 Numeric Is Patient Pain Free? Yes WC - Nurse 1 - General Ulcer Measurement Start: 07/27/24 08:07 Freq: Status: Active Protocol: Activity Type Activity Date Activity User E-sign Co-sign Detail Recorded Client Recorded Date Recorded By Document 07/27/24 08:07 ML [id number] 07/27/24 08:25 ML 07/27/24 08:07 Wound Center Nurse 1 #10 RIGHT LATERAL ANKLE CLUSTER -Current Size (cm) - Length 11 -Current Size (cm) - Width 4 -Current Size (cm) - Depth 0.2 -Total Square Cm 44 -Exudate Amt Medium -Exudate Type Serosanguineous -Granulation Amt Medium (34-66%) -Necrosis Amt Medium (34-66%) -Texture (Michell-wound Skin Appearance) Localized Edema -Moisture (Michell-wound Skin Appearance) Weeping -Color (Michell-wound Skin Appearance) Hemosiderin Staining -Temperature (Michell-wound Skin No Abnormality Appearance) (Pt Warm) -Tenderness on Palpation (Michell-wound No Skin Appearance) -Ulcer Cleansing Soap and Water -Foul Odor after Cleansing No -Anesthetic Used 5% Lidocaine Gel #4 RT LAT ANKLE -Current Size (cm) - Length 3 -Current Size (cm) - Width 2 -Current Size (cm) - Depth 0.2 -Total Square Cm 6 -Exudate Amt Medium -Exudate Type Serosanguineous -Wound Margin Fibrotic Scar, Thickened Scar -Granulation Amt Medium (34-66%) -Slough/Fibrin Yes -Necrosis Amt Medium (34-66%) -Texture (Michell-wound Skin Appearance) Localized Edema -Moisture (Michell-wound Skin Appearance) Weeping -Color (Michell-wound Skin Appearance) Hemosiderin Staining -Temperature (Michell-wound Skin No Abnormality Appearance) (Pt Warm) -Tenderness on Palpation (Michell-wound No Skin Appearance) -Ulcer Cleansing Soap and Water -Foul Odor after Cleansing No -Anesthetic Used 5% Lidocaine Gel WC - Nurse 2 - General Ulcer CM Notes Start: 07/27/24 08:07 Freq: Status: Active Protocol: Activity Type Activity Date Activity User E-sign Co-sign Detail Recorded Client Recorded Date Recorded By Document 07/27/24 08:31 [facility] [id number] 07/27/24 08:38 [facility] 07/27/24 08:31 Wound Center Nurse 2 #10 RIGHT LATERAL ANKLE CLUSTER -Time 08:37 -Post Debridement (cm) - Length 3.2 -Post Debridement (cm) - Width 0.7 -Post Debridement (cm) - Depth 0.1 -Total Square (Post) (cm) 2.24 -Area of Debridement (cm) - Length 3.2 -Area of Debridement (cm) - Width 0.7 -Total Square (Area) (cm) 2.24 -Tunneling No -Undermining/Tunneling No -Circular Undermining No -Wound/Ulcer Outcome Not Healed -Bleeding Controlled with NA #4 RT LAT ANKLE -Time 08:34 -Correct Patient Yes -Correct Side, Site, Position Yes -Correct Procedure Yes -Procedure Performed Yes -Type of Procedure Debridement -Clinical Debridement Subcutaneous -Tissue Removed Subcutaneous -Post Debridement (cm) - Length 0.8 -Post Debridement (cm) - Width 1.5 -Post Debridement (cm) - Depth 0.1 -Total Square (Post) (cm) 1.20 -Area of Debridement (cm) - Length 0.8 -Area of Debridement (cm) - Width 1.5 -Total Square (Area) (cm) 1.20 -Tunneling No -Undermining/Tunneling No -Circular Undermining No -Wound/Ulcer Outcome Not Healed -Ulcer Cleansing Rinsed/ Irrigated with Saline -Foul Odor after Cleansing No -Bioengineered Tissue No -Bleeding Controlled with Pressure -Treatment Response Procedure Tolerated Well -Debridement - Subq, 1st 20sq cm Yes Pain Scale: 0-10 Numeric Is Patient Pain Free? Yes JOANA - Nurse 3 - General Ulcer D/C NN Start: 07/27/24 08:07 Freq: Status: Active Protocol: Activity Type Activity Date Activity User E-sign Co-sign Detail Recorded Client Recorded Date Recorded By Document 07/27/24 08:43 KW [id number] 07/27/24 08:44 KW 07/27/24 08:43 Wound Care Center Nurse 3 #10 RIGHT LATERAL ANKLE CLUSTER -Other Dressing BETADINE GAUZE UNDERCASTING OVER GAUZE WRAP -Primary Dressing Covered/Secured with Dry Gauze & Roll Gauze, Secured with Tape #4 RT LAT ANKLE -Other Dressing BETADINE, COVER WITH GAUZE AND UNDERCASTING -Primary Dressing Covered/Secured with Dry Gauze & Roll Gauze, Secured with Tape Right -Compression Wrap Armaan Wrap -Other 2 Pain Scale: 0-10 Numeric Is Patient Pain Free? Yes WC - Visit Discharge Discharge Condition Stable Ambulatory Status Ambulatory Medication Reconcilliation completed & No provided to patient/care provider Clinical Summary of Care Provided Yes Assessment/Plan Assessment/Plan (1) Non-pressure chronic ulcer of other part of left lower leg with fat layer exposed: CODE(S): L97.822 - Non-pressure chronic ulcer of other part of left lower leg with fat layer exposed PLAN: Patient was examined and evaluated. All findings were discussed with the patient. All questions were answered to the patient's satisfaction. Excisional debridement down to and including subcutaneous tissue to the right lateral ankle full-thickness ulceration with a number 3 mm dermal curette without incident. Predebridement measurement is 0.7 x 1.3 x 0.1 cm. Postdebridement measurement is 0.8 x 1.5 x 0.1 cm. Patient was debridement down to including subcutaneous tissue of the right lateral foot cluster ulceration with a number 3 mm dermal curette without incident. Predebridement measurement was 3.0 x 0.5 x 0.1 cm. Postdebridement measurement is 3.2 x 0.7 x 0.1 cm. The right lower extremities were cleaned and patted dry. Betadine soaked gauze was applied to all ulcerations followed by dry sterile dressing and a multilayer compression bandage was donned to the right lower extremity. Orders were given for daily dressing changes. He will continue his oral antibiotics as prescribed. Did educate the patient that he is at risk for low knee amputation if he is not resting and elevating as instructed. He was understanding of this. Follow-up at the wound care center with Dr. Sarah in 1 week. (2) Non-pressure chronic ulcer of other part of right foot with fat layer exposed: CODE(S): L97.512 - Non-pressure chronic ulcer of other part of right foot with fat layer exposed (3) Cellulitis of right leg: CODE(S): L03.115 - Cellulitis of right lower limb (4) Type 2 diabetes mellitus with peripheral neuropathy: CODE(S): E11.42 - Type 2 diabetes mellitus with diabetic polyneuropathy
--- NOTE | 2024-07-27 15:25 | NURSING ---
PHOTO 07/27/24 RIGHT LAT FOOT
[2024-08-03 09:15] VITALS: BP 130/74; PULSE 99; RESP 18; TEMP 35.8; BMI 44.4
--- NOTE | 2024-08-03 11:37 | PN.PCM_ITS ---
History of Present Illness Date of Service: 08/03/24 Chief Complaint: Right leg cellulitis History of Wound: Right leg cellulitis and full-thickness wound Progress of Wound: Patient presenting today for worsening right leg cellulitis after developing an infection a few weeks ago. He was seen in pulmonary and hospital for IV antibiotics and discharged on oral antibiotics. Presenting with stable lateral ankle ulcer but cellulitis that is being treated with oral antibiotics right lower extremity. Subjective Subjective Mr. Olivares is a 79-year-old diabetic male presenting to wound care center today follow-up evaluation of right lower extremity full-thickness wound and cellulitis. He admits that his redness has improved. He has completed all his antibiotics. He denies any pain right lower extremity. He does have history of below-knee amputation to the left lower extremity. Denies trauma. Denies constitutional symptoms. No other pedal complaints at this time. Objective Data Objective Data Vital Signs: Vital Signs Temp Pulse Resp BP 96.5 F L 99 18 130/74 H 08/03/24 09:15 08/03/24 09:15 08/03/24 09:15 08/03/24 09:15 Weight: 161.479 kg Body Mass Index (BMI) 44.4 Physical Exam Narrative Vascular: DP and PT pulses are faintly palpable to the right lower extremity. CFT is brisk to the bilateral lower extremity. No erythema. Neurological: Light touch intact. Protective sensation is absent. Dermatological: Full-thickness wound to the right lateral ankle measuring 0.5 x 1.2 x 0.1 cm. Right lateral foot cluster full-thickness wound has now healed. Excisional debridement down to and including subcutaneous tissue to the right lateral ankle full-thickness ulceration with a number 3 mm dermal curette without incident. Predebridement measurement is 0.4 x 1.0 x 0.1 cm. Postdebridement measurement is 0.5 x 1.2 x 0.1 cm Musculoskeletal: Evidence of varus contracture to the right ankle. Patient is nonambulatory and resides in wheelchair. No pain with calf pressure bilateral. Debridement Note Debridement Note Debridement Free Text: Excisional debridement down to and including subcutaneous tissue to the right lateral ankle full-thickness ulceration with a number 3 mm dermal curette without incident. Predebridement measurement is 0.4 x 1.0 x 0.1 cm. Postdebridement measurement is 0.5 x 1.2 x 0.1 cm Post-Debridement Measurements and Additional Note: Post-Debridement Measurements/Treatment WC - Nurse 1 - General Ulcer Assessment Start: 07/27/24 08:07 Freq: Status: Active Protocol: FABIENNE Activity Type Activity Date Activity User E-sign Co-sign Detail Recorded Client Recorded Date Recorded By Document 07/27/24 08:07 ML [id number] 07/27/24 08:25 ML Document 08/03/24 09:15 RB [id number] 08/03/24 09:18 RB 07/27/24 08/03/24 08:07 09:15 WC - Today's Visit Information Type of service Follow-up Visit Follow-up Visit (Physician/CANE PILER (Physician/CANE PILER ) ) Arrival Mode Wheelchair Wheelchair Transfer Assistance Jackelyn Lift None Patient Identification Verified (Name & Yes Yes ) Patient Requires Transmission-Based No No Precautions Height and Weight Body Mass Index (BMI) 44.4 44.4 BMI Classification Obese Obese Vital Signs Temperature (97.8 F-99.1 F) 96.3 F L 96.5 F L Temperature Source Temporal Temporal Pulse Rate (60-100) 89 99 Pulse Location Monitor Monitor Respiratory Rate (12-18) 14 18 Respiratory rate source Observation Observation Blood Pressure (90/60-120/80) 111/64 130/74 H Blood Pressure Mean (mm Hg) 79 92 Source Monitor Monitor Position Semi-Fowlers Blood Pressure Location Left Arm History Since Last Visit- (Skip if this is Patient's initial visit) Have you changed medications since your No No last visit? Any new allergies or adverse reactions No No Had a fall/change in ADL's that may No No increase risk of falls Signs or symptoms of abuse and/or No No neglect since last visit Have you been in the hospital since your Yes No last visit? Has dressing in place as prescribed Yes Yes Has compression in place as prescribed N/A Yes Has offloadiing in place as prescribed N/A Yes Experienced any changes in pain level or No No management Pain Scale: 0-10 Numeric Is Patient Pain Free? Yes Yes WC - Nurse 1 - General Ulcer Measurement Start: 07/27/24 08:07 Freq: Status: Active Protocol: Activity Type Activity Date Activity User E-sign Co-sign Detail Recorded Client Recorded Date Recorded By Document 07/27/24 08:07 ML [id number] 07/27/24 08:25 ML Document 08/03/24 09:15 RB [id number] 08/03/24 09:18 RB 07/27/24 08/03/24 08:07 09:15 Wound Center Nurse 1 #10 RIGHT LATERAL ANKLE CLUSTER -Combined with other wound No -Current Size (cm) - Length 11 0.1 -Current Size (cm) - Width 4 0.1 -Current Size (cm) - Depth 0.2 0.1 -Total Square Cm 44 0.01 -Tunneling No -Undermining/Tunneling No -Circular Undermining No -Exudate Amt Medium None Present -Exudate Type Serosanguineous Serosanguineous -Wound Margin Distinct, Outline Attached -Granulation Amt Medium (34-66%) Medium (34-66%) -Granulation Quality [place] -Slough/Fibrin Yes -Necrosis Amt Medium (34-66%) Medium (34-66%) -Necrotic Tissue Type Adherent Slough -Structure Exposed N/A -Texture (Michell-wound Skin Appearance) Localized Edema Assessed -Moisture (Michell-wound Skin Appearance) Weeping Assessed,Dry/ Scaly -Color (Michell-wound Skin Appearance) Hemosiderin Assessed Staining -Temperature (Michell-wound Skin No Abnormality No Abnormality Appearance) (Pt Warm) (Pt Warm) -Tenderness on Palpation (Michell-wound No No Skin Appearance) -Ulcer Cleansing Soap and Water Wound Cleanser -Foul Odor after Cleansing No No -Anesthetic Used 5% Lidocaine 5% Lidocaine Gel Gel #4 RT LAT ANKLE -Combined with other wound No -Current Size (cm) - Length 3 0.5 -Current Size (cm) - Width 2 1 -Current Size (cm) - Depth 0.2 0.1 -Total Square Cm 6 0.5 -Tunneling No -Undermining/Tunneling No -Circular Undermining No -Exudate Amt Medium Medium -Exudate Type Serosanguineous Serosanguineous -Wound Margin Fibrotic Scar, Distinct, Thickened Scar Outline Attached -Granulation Amt Medium (34-66%) Medium (34-66%) -Granulation Quality [place] -Slough/Fibrin Yes Yes -Necrosis Amt Medium (34-66%) Medium (34-66%) -Necrotic Tissue Type Adherent Slough -Structure Exposed N/A -Texture (Michell-wound Skin Appearance) Localized Edema Assessed -Moisture (Michell-wound Skin Appearance) Weeping Dry/Scaly -Color (Michell-wound Skin Appearance) Hemosiderin Assessed Staining -Temperature (Michell-wound Skin No Abnormality No Abnormality Appearance) (Pt Warm) (Pt Warm) -Tenderness on Palpation (Michell-wound No No Skin Appearance) -Ulcer Cleansing Soap and Water Wound Cleanser -Foul Odor after Cleansing No No -Anesthetic Used 5% Lidocaine 5% Lidocaine Gel Gel Lower Limb Edema Present Yes Right Calf (cm) 48.5 Right Ankle (cm) 24.5 WC - Nurse 2 - General Ulcer CM Notes Start: 07/27/24 08:07 Freq: Status: Active Protocol: Activity Type Activity Date Activity User E-sign Co-sign Detail Recorded Client Recorded Date Recorded By Document 07/27/24 08:31 [facility] [id number] 07/27/24 08:38 [facility] Document 08/03/24 09:32 [id number] 08/03/24 09:33 07/27/24 08/03/24 08:31 09:32 Wound Center Nurse 2 #10 RIGHT LATERAL ANKLE CLUSTER -Time 08:37 -Correct Patient No -Correct Side, Site, Position No -Correct Procedure No -Procedure Performed No -Post Debridement (cm) - Length 3.2 0 -Post Debridement (cm) - Width 0.7 0 -Post Debridement (cm) - Depth 0.1 0 -Total Square (Post) (cm) 2.24 0 -Area of Debridement (cm) - Length 3.2 0 -Area of Debridement (cm) - Width 0.7 0 -Total Square (Area) (cm) 2.24 0 -Tunneling No -Undermining/Tunneling No -Circular Undermining No -Wound/Ulcer Outcome Not Healed Healed- Epithelialized -Bleeding Controlled with NA #4 RT LAT ANKLE -Time 08:34 09:33 -Correct Patient Yes Yes -Correct Side, Site, Position Yes Yes -Correct Procedure Yes Yes -Procedure Performed Yes Yes -Type of Procedure Debridement Debridement -Clinical Debridement Subcutaneous Subcutaneous -Tissue Removed Subcutaneous Subcutaneous -Post Debridement (cm) - Length 0.8 0.5 -Post Debridement (cm) - Width 1.5 1.2 -Post Debridement (cm) - Depth 0.1 0.1 -Total Square (Post) (cm) 1.20 0.60 -Area of Debridement (cm) - Length 0.8 0.5 -Area of Debridement (cm) - Width 1.5 1.2 -Total Square (Area) (cm) 1.20 0.60 -Tunneling No No -Undermining/Tunneling No No -Circular Undermining No No -Wound/Ulcer Outcome Not Healed Not Healed -Ulcer Cleansing Rinsed/ Rinsed/ Irrigated with Irrigated with Saline Saline -Foul Odor after Cleansing No No -Bioengineered Tissue No No -Bleeding Controlled with Pressure Pressure -Treatment Response Procedure Procedure Tolerated Well Tolerated Well -Offloading No -Debridement - Subq, 1st 20sq cm Yes Yes Pain Scale: 0-10 Numeric Is Patient Pain Free? Yes Yes - Nurse 3 - General Ulcer D/C NN Start: 07/27/24 08:07 Freq: Status: Active Protocol: Activity Type Activity Date Activity User E-sign Co-sign Detail Recorded Client Recorded Date Recorded By Document 07/27/24 08:43 KW [id number] 07/27/24 08:44 KW 07/27/24 08:43 Wound Care Center Nurse 3 #10 RIGHT LATERAL ANKLE CLUSTER -Other Dressing BETADINE GAUZE UNDERCASTING OVER GAUZE WRAP -Primary Dressing Covered/Secured with Dry Gauze & Roll Gauze, Secured with Tape #4 RT LAT ANKLE -Other Dressing BETADINE, COVER WITH GAUZE AND UNDERCASTING -Primary Dressing Covered/Secured with Dry Gauze & Roll Gauze, Secured with Tape Right -Compression Wrap Armaan Wrap -Other 2 Pain Scale: 0-10 Numeric Is Patient Pain Free? Yes - Visit Discharge Discharge Condition Stable Ambulatory Status Ambulatory Medication Reconcilliation completed & No provided to patient/care provider Clinical Summary of Care Provided Yes Assessment/Plan Assessment/Plan (1) Non-pressure chronic ulcer of right ankle with fat layer exposed: CODE(S): L97.312 - Non-pressure chronic ulcer of right ankle with fat layer exposed PLAN: Patient was examined and evaluated. All findings were discussed with the patient. All questions were answered to the patient's satisfaction. Excisional debridement down to and including subcutaneous tissue to the right lateral ankle full-thickness ulceration with a number 3 mm dermal curette without incident. Predebridement measurement is 0.4 x 1.0 x 0.1 cm. Postdebridement measurement is 0.5 x 1.2 x 0.1 cm. The right lower extremities are clean and patted dry. Betadine soaked gauze 5 by dry sterile dressing and compression wrap was applied to the right lower extremity. Patient will have daily dressing changes and will follow-up in 1 week for continued evaluation and care. I educated the patient to continue to elevate his right lower extremity as well as to regulate his blood sugar control between 100 to 150 mg/dL. Follow-up at the wound care center with Dr. Sarah in 1 week. (2) Non-pressure chronic ulcer of other part of right foot with fat layer exposed: CODE(S): L97.512 - Non-pressure chronic ulcer of other part of right foot with fat layer exposed (3) Cellulitis of right leg: CODE(S): L03.115 - Cellulitis of right lower limb (4) Type 2 diabetes mellitus with peripheral neuropathy: CODE(S): E11.42 - Type 2 diabetes mellitus with diabetic polyneuropathy
[2024-08-10 08:23] VITALS: BP 118/70; PULSE 92; RESP 18; TEMP 35.7; BMI 44.4
--- NOTE | 2024-08-10 10:37 | PN.PCM_ITS ---
History of Present Illness Date of Service: 08/10/24 Chief Complaint: Right leg cellulitis History of Wound: Right leg cellulitis and full-thickness wound Progress of Wound: Stable right ankle full-thickness wound. Subjective Subjective Mr. Olivares is a 79-year-old diabetic male presented wound care center today follow-up evaluation of lateral right ankle wound. Patient has a getting daily dressing changes by nursing staff at a correction facility. He resides in a wheelchair. He is not elevating as he supposed to. He does admit to improvement to the erythema to the right leg as well as wound. His blood sugars well-controlled. Denies constitutional symptoms. No other pedal complaints at this time. No trauma. Objective Data Objective Data Vital Signs: Vital Signs Temp Pulse Resp BP 96.3 F L 92 18 118/70 08/10/24 08:23 08/10/24 08:23 08/10/24 08:23 08/10/24 08:23 Weight: 161.479 kg Body Mass Index (BMI) 44.4 Physical Exam Narrative Vascular: DP and PT pulses are faintly palpable to the right lower extremity. CFT is brisk to the bilateral lower extremity. No erythema. Neurological: Light touch intact. Protective sensation is absent. Dermatological: Full-thickness wound to the right lateral ankle measuring 0.4 x 1.1 x 0.1 cm. No drainage or sign of infection Excisional debridement down to and including subcutaneous tissue to the right lateral ankle full-thickness ulceration with a number 3 mm dermal curette without incident. Predebridement measurement is 0.3 x 0.9 x 0.1 cm. Postdebridement measurement is 0.4 x 1.1 x 0.1 cm. Musculoskeletal: Evidence of varus contracture to the right ankle. Patient is nonambulatory and resides in wheelchair. No pain with calf pressure bilateral. Debridement Note Debridement Note Debridement Free Text: Excisional debridement down to and including subcutaneous tissue to the right lateral ankle full-thickness ulceration with a number 3 mm dermal curette without incident. Predebridement measurement is 0.3 x 0.9 x 0.1 cm. Postdebridement measurement is 0.4 x 1.1 x 0.1 cm. Post-Debridement Measurements and Additional Note: Post-Debridement Measurements/Treatment WC - Nurse 1 - General Ulcer Assessment Start: 07/27/24 08:07 Freq: Status: Active Protocol: WC.LOWEXT Activity Type Activity Date Activity User E-sign Co-sign Detail Recorded Client Recorded Date Recorded By Document 07/27/24 08:07 ML [id number] 07/27/24 08:25 ML Document 08/03/24 09:15 RB [id number] 08/03/24 09:18 RB Document 08/10/24 08:23 RB [id number] 08/10/24 08:25 RB 07/27/24 08/03/24 08/10/24 08:07 09:15 08:23 - Today's Visit Information Type of service Follow-up Visit Follow-up Visit Follow-up Visit (Physician/GOVERNMENT SERVICE EXECUTIVE (Physician/GOVERNMENT SERVICE EXECUTIVE (Physician/GOVERNMENT SERVICE EXECUTIVE ) ) ) Arrival Mode Wheelchair Wheelchair Wheelchair Transfer Assistance Jackelyn Lift None None Patient Identification Verified (Name & Yes Yes Yes ) Patient Requires Transmission-Based No No No Precautions Height and Weight Body Mass Index (BMI) 44.4 44.4 44.4 BMI Classification Obese Obese Obese Vital Signs Temperature (97.8 F-99.1 F) 96.3 F L 96.5 F L 96.3 F L Temperature Source Temporal Temporal Temporal Pulse Rate (60-100) 89 99 92 Pulse Location Monitor Monitor Monitor Respiratory Rate (12-18) 14 18 18 Respiratory rate source Observation Observation Observation Blood Pressure (90/60-120/80) 111/64 130/74 H 118/70 Blood Pressure Mean (mm Hg) 79 92 86 Source Monitor Monitor Monitor Position Semi-Fowlers Semi-Fowlers Blood Pressure Location Left Arm Left Arm History Since Last Visit- (Skip if this is Patient's initial visit) Have you changed medications since your No No No last visit? Any new allergies or adverse reactions No No No Had a fall/change in ADL's that may No No No increase risk of falls Signs or symptoms of abuse and/or No No No neglect since last visit Have you been in the hospital since your Yes No No last visit? Has dressing in place as prescribed Yes Yes Yes Has compression in place as prescribed N/A Yes Yes Has offloadiing in place as prescribed N/A Yes Yes Experienced any changes in pain level or No No No management Right Footwear Multipodus Splint/Boot Pain Scale: 0-10 Numeric Is Patient Pain Free? Yes Yes Yes - Nurse 1 - General Ulcer Measurement Start: 07/27/24 08:07 Freq: Status: Active Protocol: Activity Type Activity Date Activity User E-sign Co-sign Detail Recorded Client Recorded Date Recorded By Document 07/27/24 08:07 ML [id number] 07/27/24 08:25 ML Document 08/03/24 09:15 RB [id number] 08/03/24 09:18 RB Document 08/10/24 08:23 RB [id number] 08/10/24 08:25 RB 07/27/24 08/03/24 08/10/24 08:07 09:15 08:23 Wound Center Nurse 1 #10 RIGHT LATERAL ANKLE CLUSTER -Combined with other wound No -Current Size (cm) - Length 11 0.1 -Current Size (cm) - Width 4 0.1 -Current Size (cm) - Depth 0.2 0.1 -Total Square Cm 44 0.01 -Tunneling No -Undermining/Tunneling No -Circular Undermining No -Exudate Amt Medium None Present -Exudate Type Serosanguineous Serosanguineous -Wound Margin Distinct, Outline Attached -Granulation Amt Medium (34-66%) Medium (34-66%) -Granulation Quality Bend -Slough/Fibrin Yes -Necrosis Amt Medium (34-66%) Medium (34-66%) -Necrotic Tissue Type Adherent Slough -Structure Exposed N/A -Texture (Michell-wound Skin Appearance) Localized Edema Assessed -Moisture (Michell-wound Skin Appearance) Weeping Assessed,Dry/ Scaly -Color (Michell-wound Skin Appearance) Hemosiderin Assessed Staining -Temperature (Michell-wound Skin No Abnormality No Abnormality Appearance) (Pt Warm) (Pt Warm) -Tenderness on Palpation (Michell-wound No No Skin Appearance) -Ulcer Cleansing Soap and Water Wound Cleanser -Foul Odor after Cleansing No No -Anesthetic Used 5% Lidocaine 5% Lidocaine Gel Gel #4 RT LAT ANKLE -Combined with other wound No No -Current Size (cm) - Length 3 0.5 0.5 -Current Size (cm) - Width 2 1 1 -Current Size (cm) - Depth 0.2 0.1 0.1 -Total Square Cm 6 0.5 0.5 -Tunneling No No -Undermining/Tunneling No No -Circular Undermining No No -Exudate Amt Medium Medium Medium -Exudate Type Serosanguineous Serosanguineous Serosanguineous -Wound Margin Fibrotic Scar, Distinct, Distinct, Thickened Scar Outline Outline Attached Attached -Granulation Amt Medium (34-66%) Medium (34-66%) Medium (34-66%) -Granulation Quality Bend Bend -Slough/Fibrin Yes Yes Yes -Necrosis Amt Medium (34-66%) Medium (34-66%) Medium (34-66%) -Necrotic Tissue Type Adherent Slough Adherent Slough -Structure Exposed N/A N/A -Texture (Michell-wound Skin Appearance) Localized Edema Assessed Assessed, Scarring -Moisture (Michell-wound Skin Appearance) Weeping Dry/Scaly Assessed -Color (Michell-wound Skin Appearance) Hemosiderin Assessed Assessed Staining -Temperature (Michell-wound Skin No Abnormality No Abnormality No Abnormality Appearance) (Pt Warm) (Pt Warm) (Pt Warm) -Tenderness on Palpation (Michell-wound No No No Skin Appearance) -Ulcer Cleansing Soap and Water Wound Cleanser Wound Cleanser -Foul Odor after Cleansing No No No -Anesthetic Used 5% Lidocaine 5% Lidocaine 5% Lidocaine Gel Gel Gel Lower Limb Edema Present Yes Right Calf (cm) 48.5 Right Ankle (cm) 24.5 WC - Nurse 2 - General Ulcer CM Notes Start: 07/27/24 08:07 Freq: Status: Active Protocol: Activity Type Activity Date Activity User E-sign Co-sign Detail Recorded Client Recorded Date Recorded By Document 07/27/24 08:31 [facility] [id number] 07/27/24 08:38 [facility] Document 08/03/24 09:32 [id number] 08/03/24 09:33 Document 08/10/24 08:47 [id number] 08/10/24 08:49 07/27/24 08/03/24 08/10/24 08:31 09:32 08:47 Wound Center Nurse 2 #10 RIGHT LATERAL ANKLE CLUSTER -Time 08:37 -Correct Patient No -Correct Side, Site, Position No -Correct Procedure No -Procedure Performed No -Post Debridement (cm) - Length 3.2 0 -Post Debridement (cm) - Width 0.7 0 -Post Debridement (cm) - Depth 0.1 0 -Total Square (Post) (cm) 2.24 0 -Area of Debridement (cm) - Length 3.2 0 -Area of Debridement (cm) - Width 0.7 0 -Total Square (Area) (cm) 2.24 0 -Tunneling No -Undermining/Tunneling No -Circular Undermining No -Wound/Ulcer Outcome Not Healed Healed- Epithelialized -Bleeding Controlled with NA #4 RT LAT ANKLE -Time 08:34 09:33 08:47 -Correct Patient Yes Yes Yes -Correct Side, Site, Position Yes Yes Yes -Correct Procedure Yes Yes Yes -Procedure Performed Yes Yes Yes -Type of Procedure Debridement Debridement Debridement -Clinical Debridement Subcutaneous Subcutaneous Subcutaneous -Tissue Removed Subcutaneous Subcutaneous Subcutaneous -Post Debridement (cm) - Length 0.8 0.5 0.4 -Post Debridement (cm) - Width 1.5 1.2 1.1 -Post Debridement (cm) - Depth 0.1 0.1 0.1 -Total Square (Post) (cm) 1.20 0.60 0.44 -Area of Debridement (cm) - Length 0.8 0.5 0.4 -Area of Debridement (cm) - Width 1.5 1.2 1.1 -Total Square (Area) (cm) 1.20 0.60 0.44 -Tunneling No No No -Undermining/Tunneling No No No -Circular Undermining No No No -Wound/Ulcer Outcome Not Healed Not Healed Not Healed -Ulcer Cleansing Rinsed/ Rinsed/ Rinsed/ Irrigated with Irrigated with Irrigated with Saline Saline Saline -Foul Odor after Cleansing No No No -Bioengineered Tissue No No No -Bleeding Controlled with Pressure Pressure Pressure -Treatment Response Procedure Procedure Procedure Tolerated Well Tolerated Well Tolerated Well -Offloading No No -Assistive Device(s) Wheelchair -Debridement - Subq, 1st 20sq cm Yes Yes Yes Pain Scale: 0-10 Numeric Is Patient Pain Free? Yes Yes Yes WC - Nurse 3 - General Ulcer D/C NN Start: 07/27/24 08:07 Freq: Status: Active Protocol: Activity Type Activity Date Activity User E-sign Co-sign Detail Recorded Client Recorded Date Recorded By Document 07/27/24 08:43 KW [id number] 07/27/24 08:44 KW Document 08/10/24 08:51 KW [id number] 08/10/24 08:58 KW 07/27/24 08/10/24 08:43 08:51 Wound Care Center Nurse 3 #10 RIGHT LATERAL ANKLE CLUSTER -Other Dressing BETADINE GAUZE UNDERCASTING OVER GAUZE WRAP -Primary Dressing Covered/Secured with Dry Gauze & Roll Gauze, Secured with Tape #4 RT LAT ANKLE -Other Dressing BETADINE, COVER WITH GAUZE AND UNDERCASTING -Primary Dressing Covered/Secured with Dry Gauze & Roll Gauze, Secured with Tape Right -Compression Wrap Armaan Wrap -Other 2 Pain Scale: 0-10 Numeric Is Patient Pain Free? Yes Yes WC - Visit Discharge Discharge Condition Stable Stable Ambulatory Status Ambulatory Wheelchair Medication Reconcilliation completed & No No provided to patient/care provider Clinical Summary of Care Provided Yes Yes #4 RT LAT ANKLE -Other Dressing betadine -Primary Dressing Covered/Secured with Dry Gauze & Roll Gauze, Secured with Tape Right -Compression Wrap Armaan Wrap Assessment/Plan Assessment/Plan (1) Non-pressure chronic ulcer of right ankle with fat layer exposed: CODE(S): L97.312 - Non-pressure chronic ulcer of right ankle with fat layer exposed PLAN: Patient was examined and evaluated. All findings were discussed with the patient. All questions were answered to the patient's satisfaction. Excisional debridement down to and including subcutaneous tissue to the right lateral ankle full-thickness ulceration with a number 3 mm dermal curette without incident. Predebridement measurement is 0.3 x 0.9 x 0.1 cm. Postdebridement measurement is 0.4 x 1.1 x 0.1 cm. The right lower extremities are clean and patted dry. Area was dressed with Betadine soaked gauze dry sterile dressing and a compression wrap to right lower extremity. Patient will have daily dressing changes by the correction facility. I educated the patient to watch the pressure on his lateral right ankle since the patient sleeps on his right side. I educated patient to try to sleep on his back or attempt to offload the wound area which she was understanding of. He will continue to wear the Multi-Podus boot to the right lower extremity. I did give orders for physical therapy to evaluate and treat with the prosthesis to the left lower extremity. Follow-up at the wound care center with Dr. Sarah in 1 week. (2) Type 2 diabetes mellitus with peripheral neuropathy: CODE(S): E11.42 - Type 2 diabetes mellitus with diabetic polyneuropathy
== END 2024-08-12 23:59 | disposition skilled nursing facility (03) ==
LOC: WC 08:15
PROVIDERS: PCP Internal Medicine Infectious Disease; Referring Provider Internal Medicine Infectious Disease; Visit Provider Podiatrist Foot & Ankle Surgery
DX: E11.622 Type 2 diabetes mellitus with other skin ulcer (principal); L97.822 Non-pressure chronic ulcer of other part of left lower leg with fat layer exposed; L97.512 Non-pressure chronic ulcer of other part of right foot with fat layer exposed; L97.312 Non-pressure chronic ulcer of right ankle with fat layer exposed; E11.42 Type 2 diabetes mellitus with diabetic polyneuropathy; L03.115 Cellulitis of right lower limb; Z99.3 Dependence on wheelchair
CPT/HCPCS: 11042

== ENCOUNTER 2024-08-31 08:00 | Outpatient (RCR) | payer OTHER, MEDICAID, SELFPAY ==
[2024-08-13 00:53] VITALS: BP 118/70; PULSE 92; RESP 18; TEMP 35.7; BMI 44.4
[2024-08-24 08:12] VITALS: BP 137/56; PULSE 81; RESP 18; TEMP 35.7; BMI 44.4
--- NOTE | 2024-08-24 09:25 | PCM.WC.PN ---
History of Present Illness Date of Service: 08/10/24 Chief Complaint: Full-thickness wound right ankle History of Wound: Healing and stable full-thickness wound right ankle Progress of Wound: Stable right ankle full-thickness wound. Subjective Subjective Mr. Olivares is a 79-year-old diabetic male presenting to wound care center today for follow-up evaluation of full-thickness wound to the lateral ankle of the right lower extremity. Patient has been doing dressing changes with Betadine paint dry sterile dressing and Multi-Podus boot for offloading. He resides in wheelchair. He is currently nonweightbearing. His prosthesis does not fit to the left lower extremity. He is working on getting a new prosthesis if able. He admits that the wound is healing. His blood sugars well-controlled. He does admit to not elevating as much as he should. Denies trauma. Denies constitutional symptoms. No other pedal complaints at this time. Objective Data Objective Data Vital Signs: Vital Signs Temp Pulse Resp BP O2 Del Method 96.3 F L 81 18 137/56 H Room Air 08/24/24 08:12 08/24/24 08:12 08/24/24 08:12 08/24/24 08:12 08/24/24 08:12 Oxygen Delivery Method Room Air Weight: 161.479 kg Body Mass Index (BMI) 44.4 Physical Exam Narrative Vascular: DP and PT pulses are faintly palpable to the right lower extremity. CFT is brisk to the bilateral lower extremity. No erythema. Neurological: Light touch intact. Protective sensation is absent. Dermatological: Partial-thickness wound right lateral ankle measuring 0.1 x 0.1 x 0.1 cm. No drainage or sign of infection Selective debridement down to and including dermal tissue with a number 3 mm dermal curette to the lateral right ankle eschar. Predebridement measurement was eschar. Postdebridement measurement 0.1 x 0.1 x 0.1 cm. Musculoskeletal: Evidence of varus contracture to the right ankle. Patient is nonambulatory and resides in wheelchair. No pain with calf pressure bilateral. Debridement Note Debridement Note Debridement Free Text: Selective debridement down to and including dermal tissue with a number 3 mm dermal curette to the lateral right ankle eschar. Predebridement measurement was eschar. Postdebridement measurement 0.1 x 0.1 x 0.1 cm. Post-Debridement Measurements and Additional Note: Post-Debridement Measurements/Treatment - Nurse 1 - General Ulcer Assessment Start: 08/24/24 08:12 Freq: Status: Active Protocol: FABIENNE Activity Type Activity Date Activity User E-sign Co-sign Detail Recorded Client Recorded Date Recorded By Document 08/24/24 08:12 KW [id number] 08/24/24 08:26 08/24/24 08:12 - Today's Visit Information Type of service Follow-up Visit (Physician/MANAGER OPERATING ) Arrival Mode Wheelchair Accompanied by child care education coordinator Patient Identification Verified (Name & Yes ) Height and Weight Body Mass Index (BMI) 44.4 BMI Classification Obese Vital Signs Temperature (97.8 F-99.1 F) 96.3 F L Temperature Source Temporal Pulse Rate (60-100) 81 Pulse Location Monitor Respiratory Rate (12-18) 18 Respiratory rate source Observation Oxygen Delivery Method Room Air Blood Pressure (90/60-120/80) 137/56 H Blood Pressure Mean (mm Hg) 83 Source Monitor Position Sitting Blood Pressure Location Left Forearm History Since Last Visit- (Skip if this is Patient's initial visit) Have you changed medications since your No last visit? Any new allergies or adverse reactions No Had a fall/change in ADL's that may No increase risk of falls Signs or symptoms of abuse and/or No neglect since last visit Have you been in the hospital since your No last visit? Has dressing in place as prescribed Yes Has compression in place as prescribed Yes Has offloadiing in place as prescribed N/A Experienced any changes in pain level or No management Left Footwear No Footwear Right Footwear No Footwear Pain Scale: 0-10 Numeric Is Patient Pain Free? Yes - Nurse 1 - General Ulcer Measurement Start: 08/24/24 08:12 Freq: Status: Active Protocol: Activity Type Activity Date Activity User E-sign Co-sign Detail Recorded Client Recorded Date Recorded By Document 08/24/24 08:12 ANTELMO [id number] 08/24/24 08:26 08/24/24 08:12 Wound Center Nurse 1 #4 RT LAT ANKLE -Current Size (cm) - Length 0.4 -Current Size (cm) - Width 0.9 -Current Size (cm) - Depth 0.1 -Total Square Cm 0.36 -Date of Last Picture (Recall this 08/24/24 field) -Exudate Amt None Present -Wound Margin Distinct, Outline Attached -Necrosis Amt Small (1-33%) -Necrotic Tissue Type Adherent Slough -Texture (Michell-wound Skin Appearance) Assessed -Moisture (Michell-wound Skin Appearance) Assessed -Color (Michell-wound Skin Appearance) Assessed -Temperature (Michell-wound Skin No Abnormality Appearance) (Pt Warm) -Tenderness on Palpation (Michell-wound No Skin Appearance) -Ulcer Cleansing Soap and Water -Foul Odor after Cleansing No -Anesthetic Used 5% Lidocaine Gel WC - Nurse 2 - General Ulcer CM Notes Start: 08/24/24 08:12 Freq: Status: Active Protocol: Activity Type Activity Date Activity User E-sign Co-sign Detail Recorded Client Recorded Date Recorded By Document 08/24/24 08:40 SALLY [id number] 08/24/24 08:41 JF 08/24/24 08:40 Wound Center Nurse 2 -Time 08:40 -Correct Patient Yes -Correct Side, Site, Position Yes -Correct Procedure Yes -Procedure Performed Yes -Type of Procedure Debridement -Clinical Debridement Epidermis / Dermis -Tissue Removed Epidermis, Dermis -Post Debridement (cm) - Length 0.1 -Post Debridement (cm) - Width 0.1 -Post Debridement (cm) - Depth 0.1 -Total Square (Post) (cm) 0.01 -Area of Debridement (cm) - Length 0.1 -Area of Debridement (cm) - Width 0.1 -Total Square (Area) (cm) 0.01 -Tunneling No -Undermining/Tunneling No -Circular Undermining No -Wound/Ulcer Outcome Not Healed -Ulcer Cleansing Rinsed/ Irrigated with Saline -Foul Odor after Cleansing No -Bioengineered Tissue No -Bleeding Controlled with Pressure -Treatment Response Procedure Tolerated Well -Offloading Yes -Type of Offloading Camwalker -Debridement - Open, 1st 20sq cm Yes Pain Scale: 0-10 Numeric Is Patient Pain Free? Yes - Nurse 3 - General Ulcer D/C NN Start: 08/24/24 08:12 Freq: Status: Active Protocol: Activity Type Activity Date Activity User E-sign Co-sign Detail Recorded Client Recorded Date Recorded By Document 08/24/24 08:54 KW [id number] 08/24/24 08:55 KW 08/24/24 08:54 Wound Care Center Nurse 3 #4 RT LAT ANKLE -Primary Dressing Applied Other -Other Dressing betadine with bandade RLE -Compression Wrap Armaan Wrap -Other 1 Pain Scale: 0-10 Numeric Is Patient Pain Free? Yes WC - Visit Discharge Discharge Condition Stable Ambulatory Status Wheelchair Medication Reconcilliation completed & No provided to patient/care provider Clinical Summary of Care Provided Yes Assessment/Plan Assessment/Plan (1) Non-pressure chronic ulcer of right ankle with fat layer exposed: CODE(S): L97.312 - Non-pressure chronic ulcer of right ankle with fat layer exposed PLAN: Patient was examined and evaluated. All findings were discussed with the patient. All questions were answered to the patient's satisfaction. Selective debridement down to and including dermal tissue with a number 3 mm dermal curette to the lateral right ankle eschar. Predebridement measurement was eschar. Postdebridement measurement 0.1 x 0.1 x 0.1 cm.. The right lower extremities are clean and patted dry. Area was dressed with Betadine paint dry sterile dressing and a compression wrap to right lower extremity. Patient will have daily dressing changes by the nursing home facility. Educated the patient continue to wear the Multi-Podus boot whenever he is in bed or in his wheelchair. Educated the patient to watch any pressure that may come about if he is not wearing the boot especially in his wheelchair. Patient showed understanding of this. Continue strict blood sugar control The patient will be followed up in approximately 2 weeks. I educated patient that if we have continued breakdown of skin we need to move forward with a solid AFO with cut out to the lateral ankle and if he fails the conservative treatment with AFO we will need to move forward with possible surgical intervention consisting of either lateral plate TTC arthrodesis versus intramedullary nail TTC arthrodesis. Follow-up at the wound care center with Dr. Sarah in 2 week. (2) Type 2 diabetes mellitus with peripheral neuropathy: CODE(S): E11.42 - Type 2 diabetes mellitus with diabetic polyneuropathy
--- NOTE | 2024-08-25 09:42 | WC ---
PHOTO 08/24/24 RIGHT LATERAL ANKLE
[2024-08-31 08:08] VITALS: BP 99/63; PULSE 111; RESP 16; TEMP 36.1; BMI 44.4
--- NOTE | 2024-08-31 09:10 | PN.PCM_ITS ---
History of Present Illness Date of Service: 08/31/24 Chief Complaint: Full-thickness wound right ankle History of Wound: Healing and stable full-thickness wound right ankle Progress of Wound: Stable right ankle full-thickness wound. Subjective Subjective Mr. Olivares is a 79-year-old diabetic male presenting to wound care center today for follow-up evaluation of full-thickness wound to the lateral ankle of the right lower extremity. Patient's right ankle wound is now healed. He will continue to wear his Multi-Podus boot and offload. He resides in a wheelchair. Blood sugar well-controlled. Stronger denies constitutional symptoms. No other pedal complaints at this time. Objective Data Objective Data Vital Signs: Vital Signs Temp Pulse Resp BP O2 Del Method 97.0 F L 111 H 16 99/63 Room Air 08/31/24 08:08 08/31/24 08:08 08/31/24 08:08 08/31/24 08:08 08/31/24 08:08 Oxygen Delivery Method Room Air Weight: 161.479 kg Body Mass Index (BMI) 44.4 Physical Exam Narrative Vascular: DP and PT pulses are faintly palpable to the right lower extremity. CFT is brisk to the bilateral lower extremity. No erythema. Neurological: Light touch intact. Protective sensation is absent. Dermatological: Full-thickness wound to the right lateral ankle is now healed. No sign of infection. Musculoskeletal: Evidence of varus contracture to the right ankle. Patient is nonambulatory and resides in wheelchair. No pain with calf pressure bilateral. Debridement Note Debridement Note Debridement Free Text: Selective debridement down to and including dermal tissue with a number 3 mm dermal curette to the lateral right ankle eschar. Predebridement measurement was eschar. Postdebridement measurement 0.1 x 0.1 x 0.1 cm. Post-Debridement Measurements and Additional Note: Post-Debridement Measurements/Treatment WC - Nurse 1 - General Ulcer Assessment Start: 08/24/24 08:12 Freq: Status: Active Protocol: FABIENNE Activity Type Activity Date Activity User E-sign Co-sign Detail Recorded Client Recorded Date Recorded By Document 08/24/24 08:12 KW [id number] 08/24/24 08:26 KW Document 08/31/24 08:08 [id number] 08/31/24 08:17 08/24/24 08/31/24 08:12 08:08 - Today's Visit Information Type of service Follow-up Visit Follow-up Visit (Physician/PSYCHOLOGY CLINICIAN (Physician/PSYCHOLOGY CLINICIAN ) ) Arrival Mode Wheelchair Wheelchair Transfer Assistance None Accompanied by youth care specialist Patient Identification Verified (Name & Yes Yes ) Height and Weight Body Mass Index (BMI) 44.4 44.4 BMI Classification Obese Obese Vital Signs Temperature (97.8 F-99.1 F) 96.3 F L 97.0 F L Temperature Source Temporal Temporal Pulse Rate (60-100) 81 111 H Pulse Location Monitor Respiratory Rate (12-18) 18 16 Respiratory rate source Observation Observation Oxygen Delivery Method Room Air Room Air Blood Pressure (90/60-120/80) 137/56 H 99/63 Blood Pressure Mean (mm Hg) 83 75 Source Monitor Monitor Position Sitting Sitting Blood Pressure Location Left Forearm Right Forearm History Since Last Visit- (Skip if this is Patient's initial visit) Have you changed medications since your No No last visit? Any new allergies or adverse reactions No No Had a fall/change in ADL's that may No No increase risk of falls Signs or symptoms of abuse and/or No No neglect since last visit Have you been in the hospital since your No No last visit? Has dressing in place as prescribed Yes Yes Has compression in place as prescribed Yes Yes Has offloadiing in place as prescribed N/A Yes Experienced any changes in pain level or No No management Left Footwear No Footwear Other Footwear (Comment) Right Footwear No Footwear No Footwear Pain Scale: 0-10 Numeric Is Patient Pain Free? Yes Yes - Nurse 1 - General Ulcer Measurement Start: 08/24/24 08:12 Freq: Status: Active Protocol: Activity Type Activity Date Activity User E-sign Co-sign Detail Recorded Client Recorded Date Recorded By Document 08/24/24 08:12 KW [id number] 08/24/24 08:26 KW Document 08/31/24 08:08 [id number] 08/31/24 08:17 08/24/24 08/31/24 08:12 08:08 Wound Center Nurse 1 #4 RT LAT ANKLE -Current Size (cm) - Length 0.4 0.5 -Current Size (cm) - Width 0.9 0.5 -Current Size (cm) - Depth 0.1 0.1 -Total Square Cm 0.36 0.25 -Date of Last Picture (Recall this 08/24/24 field) -Photo Taken No -Epithelialization Large 67-100% -Tunneling No -Undermining/Tunneling No -Circular Undermining No -Exudate Amt None Present Small -Exudate Type Yellow/Green -Wound Margin Distinct, Flat & Intact Outline Attached -Granulation Amt Small (1-33%) -Granulation Quality [place] -Slough/Fibrin No -Necrosis Amt Small (1-33%) -Necrotic Tissue Type Adherent Slough -Texture (Michell-wound Skin Appearance) Assessed Assessed -Moisture (Michell-wound Skin Appearance) Assessed Assessed -Color (Michell-wound Skin Appearance) Assessed Assessed -Temperature (Michell-wound Skin No Abnormality No Abnormality Appearance) (Pt Warm) (Pt Warm) -Tenderness on Palpation (Michell-wound No No Skin Appearance) -Ulcer Cleansing Soap and Water Soap and Water -Foul Odor after Cleansing No No -Anesthetic Used 5% Lidocaine 5% Lidocaine Gel Gel WC - Nurse 2 - General Ulcer CM Notes Start: 08/24/24 08:12 Freq: Status: Active Protocol: Activity Type Activity Date Activity User E-sign Co-sign Detail Recorded Client Recorded Date Recorded By Document 08/24/24 08:40 [id number] 08/24/24 08:41 Document 08/31/24 08:36 [id number] 08/31/24 08:36 08/24/24 08/31/24 08:40 08:36 Wound Center Nurse 2 #4 RT LAT ANKLE -Time 08:40 -Correct Patient Yes No -Correct Side, Site, Position Yes No -Correct Procedure Yes No -Procedure Performed Yes No -Type of Procedure Debridement -Clinical Debridement Epidermis / Dermis -Tissue Removed Epidermis, Dermis -Post Debridement (cm) - Length 0.1 0 -Post Debridement (cm) - Width 0.1 0 -Post Debridement (cm) - Depth 0.1 0 -Total Square (Post) (cm) 0.01 0 -Area of Debridement (cm) - Length 0.1 0 -Area of Debridement (cm) - Width 0.1 0 -Total Square (Area) (cm) 0.01 0 -Tunneling No -Undermining/Tunneling No -Circular Undermining No -Wound/Ulcer Outcome Not Healed Healed- Epithelialized -Ulcer Cleansing Rinsed/ Irrigated with Saline -Foul Odor after Cleansing No -Bioengineered Tissue No -Bleeding Controlled with Pressure -Treatment Response Procedure Tolerated Well -Offloading Yes -Type of Offloading Camwalker -Debridement - Open, 1st 20sq cm Yes Pain Scale: 0-10 Numeric Is Patient Pain Free? Yes Yes - Nurse 3 - General Ulcer D/C NN Start: 08/24/24 08:12 Freq: Status: Active Protocol: Activity Type Activity Date Activity User E-sign Co-sign Detail Recorded Client Recorded Date Recorded By Document 08/24/24 08:54 KW [id number] 08/24/24 08:55 KW Document 08/31/24 08:47 CP [id number] 08/31/24 08:48 CP 08/24/24 08/31/24 08:54 08:47 Wound Care Center Nurse 3 #4 RT LAT ANKLE -Primary Dressing Applied Other -Other Dressing betadine with bandade RLE -Compression Wrap Armaan Wrap Armaan Wrap -Other 1 Pain Scale: 0-10 Numeric Is Patient Pain Free? Yes Yes WC - Visit Discharge Discharge Condition Stable Stable Ambulatory Status Wheelchair Wheelchair Transportation Private Auto Medication Reconcilliation completed & No provided to patient/care provider Clinical Summary of Care Provided Yes Yes Assessment/Plan Assessment/Plan (1) Non-pressure chronic ulcer of right ankle with fat layer exposed: CODE(S): L97.312 - Non-pressure chronic ulcer of right ankle with fat layer exposed PLAN: Patient was examined and evaluated. All findings were discussed with the patient. All questions were answered to the patient's satisfaction. The patient's lateral right ankle wound is now healed. Patient will continue to wear his Multi-Podus boot and offload. Educated the patient to work with his prosthetists regarding his left lower extremity prosthetic so he can begin to weight-bear as tolerated with assistance of physical therapy and occupational health. Patient will follow-up at private office with myself for evaluation consultation and AFOs to the right lower extremity. Educated patient continue strict blood sugar control and watch the contracture of his right ankle whenever he is at rest without the Multi-Podus boot on and in his wheelchair which she was very understanding of. Patient has done very well and will be discharged from the wound care center today. He was grateful for his care. (2) Type 2 diabetes mellitus with peripheral neuropathy: CODE(S): E11.42 - Type 2 diabetes mellitus with diabetic polyneuropathy
== END 2024-09-12 16:17 | disposition home or self-care (01) ==
LOC: WC 08:00
PROVIDERS: PCP Internal Medicine Infectious Disease; Referring Provider Internal Medicine Infectious Disease; Visit Provider Podiatrist Foot & Ankle Surgery
DX: E11.622 Type 2 diabetes mellitus with other skin ulcer (principal); L97.312 Non-pressure chronic ulcer of right ankle with fat layer exposed; E11.42 Type 2 diabetes mellitus with diabetic polyneuropathy; Z99.3 Dependence on wheelchair
CPT/HCPCS: 97597; 99213; G0463

== ENCOUNTER → 2024-09-20 | Outpatient (CLI) | payer MEDICARE, MEDICAID, SELFPAY | END | disposition home or self-care (01) | LOC: LABSPEC 16:56 | PROVIDERS: PCP Internal Medicine Infectious Disease; Visit Provider Podiatrist Foot & Ankle Surgery | DX: S81.801A Unspecified open wound, right lower leg, initial encounter (principal); X58.XXXA Exposure to other specified factors, initial encounter | CPT/HCPCS: 87070; 87205 ==

== ENCOUNTER 2024-10-05 08:00 | Outpatient (RCR) | payer MEDICARE, MEDICAID, SELFPAY ==
[2024-09-28 08:01] VITALS: BP 105/66; PULSE 89; RESP 18; TEMP 35.6
--- NOTE | 2024-09-28 08:54 | PCM.WC.PN ---
History of Present Illness Date of Service: 09/28/24 Chief Complaint: Full-thickness wound right ankle History of Wound: Healed right ankle wound, multiple full-thickness wound to the distal right foot Progress of Wound: Slow healing multiple full-thickness wound to distal aspect of the right foot Subjective Subjective Mr. Olivares is a 79-year-old diabetic male who was initially seen in private office for follow-up evaluation of healed full-thickness wound to the lateral aspect of the right ankle as well as for consultation for right lower extremity solid AFO. At the time of that visit the patient had multiple fluid-filled blisters and eschars to the distal aspect of the right foot. The patient was seen and debrided in private office and referred back to the wound care center for further consultation as well as for transportation issues. Overall the patient is improving. He is taking the oral antibiotic as prescribed, he is doing daily dressing changes per nursing staff. 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 He has not gotten his AFO yet as we are still waiting authorization through his insurance. He denies any trauma. Denies constitutional symptoms. No other pedal complaints at this time. Objective Data Objective Data Vital Signs: Vital Signs Temp Pulse Resp BP O2 Del Method 96.1 F L 89 18 105/66 Room Air 09/28/24 08:01 09/28/24 08:01 09/28/24 08:01 09/28/24 08:01 09/28/24 08:01 Oxygen Delivery Method Room Air Physical Exam Narrative Vascular: DP and PT pulses are faintly palpable to the right lower extremity. CFT is brisk to the bilateral lower extremity. No erythema. Neurological: Light touch intact. Protective sensation is absent. Dermatological: Full-thickness wound appreciated to distal aspect of the right foot. The right plantar ulcer measures 1.3 x 1.8 x 0.1 cm. Wound base is granular with dry eschar no sign of infection. The distal hallux full-thickness wound is 1.4 x 0.9 x 0.1 cm. Wound base is granular with no sign of infection. The distal right second digit full-thickness wound is 0.7 x 0.7 x 0.1 cm. Wound base is granular with dry eschar no sign of infection. Excisional debridement down to and including subcutaneous tissue of the right plantar full-thickness wound with a number 3 mm dermal curette done without incident. Predebridement measurement was eschar. Post debridement measurement was 1.3 x 1.8 x 0.1 cm. Excisional debridement down to including subcutaneous tissue of the right distal hallux full-thickness wound with a number 3 mm dermal curette done without incident. Predebridement measurement was eschar. Postdebridement measurement is 1.4 x 0.9 x 0.1 cm. Excisional debridement down to including subcutaneous tissue of the right distal second digit full-thickness wound with a number 3 mm dermal curette down without incident. Predebridement measurement was eschar. Postdebridement measurement is 0.7 x 0.7 x 0.1 cm. Musculoskeletal: Evidence of varus contracture to the right ankle. Patient is nonambulatory and resides in wheelchair. No pain with calf pressure bilateral. Debridement Note Debridement Note Debridement Free Text: Excisional debridement down to and including subcutaneous tissue of the right plantar full-thickness wound with a number 3 mm dermal curette done without incident. Predebridement measurement was eschar. Post debridement measurement was 1.3 x 1.8 x 0.1 cm. Excisional debridement down to including subcutaneous tissue of the right distal hallux full-thickness wound with a number 3 mm dermal curette done without incident. Predebridement measurement was eschar. Postdebridement measurement is 1.4 x 0.9 x 0.1 cm. Excisional debridement down to including subcutaneous tissue of the right distal second digit full-thickness wound with a number 3 mm dermal curette down without incident. Predebridement measurement was eschar. Postdebridement measurement is 0.7 x 0.7 x 0.1 cm. Post-Debridement Measurements and Additional Note: Post-Debridement Measurements/Treatment [facility] Nurse 1 - General Ulcer Assessment Start: 09/28/24 08:01 Freq: Status: Active Protocol: FABIENNE Activity Type Activity Date Activity User E-sign Co-sign Detail Recorded Client Recorded Date Recorded By Document 09/28/24 08:01 [id number] 09/28/24 08:25 09/28/24 08:01 - Today's Visit Information Type of service Follow-up Visit (Physician/FLUME RIDE OPERATOR ) Arrival Mode Wheelchair Transfer Assistance None Patient Identification Verified (Name & Yes ) Patient Requires Transmission-Based No Precautions Vital Signs Temperature (97.8 F-99.1 F) 96.1 F L Temperature Source Temporal Pulse Rate (60-100) 89 Pulse Location Monitor Respiratory Rate (12-18) 18 Respiratory rate source Observation Oxygen Delivery Method Room Air Blood Pressure (90/60-120/80) 105/66 Blood Pressure Mean (mm Hg) 79 Source Monitor Position Sitting Blood Pressure Location Right Arm History Since Last Visit- (Skip if this is Patient's initial visit) Have you changed medications since your No last visit? Any new allergies or adverse reactions No Had a fall/change in ADL's that may No increase risk of falls Signs or symptoms of abuse and/or No neglect since last visit Have you been in the hospital since your No last visit? Has dressing in place as prescribed Yes Has compression in place as prescribed Yes Has offloadiing in place as prescribed Yes Experienced any changes in pain level or No management Right Footwear Removable Cast Walker/Walking Boot Pain Scale: 0-10 Numeric Is Patient Pain Free? Yes - Nurse 1 - General Ulcer Measurement Start: 09/28/24 08:01 Freq: Status: Active Protocol: Activity Type Activity Date Activity User E-sign Co-sign Detail Recorded Client Recorded Date Recorded By Document 09/28/24 08:01 [id number] 09/28/24 08:25 09/28/24 08:01 Wound Center Nurse 1 #11 R dorsal foot -Combined with other wound No -Current Size (cm) - Length 0.1 -Current Size (cm) - Width 0.1 -Current Size (cm) - Depth 0.1 -Total Square Cm 0.01 -Date of Last Picture (Recall this 09/28/24 field) -Photo Taken Yes -Tunneling No -Undermining/Tunneling No -Circular Undermining No -Exudate Amt None Present -Wound Margin Distinct, Outline Attached -Texture (Michell-wound Skin Appearance) Assessed -Moisture (Michell-wound Skin Appearance) Assessed -Color (Michell-wound Skin Appearance) Assessed -Temperature (Michell-wound Skin No Abnormality Appearance) (Pt Warm) -Tenderness on Palpation (Michell-wound No Skin Appearance) -Ulcer Cleansing Soap and Water -Foul Odor after Cleansing No -Anesthetic Used 5% Lidocaine Gel #14 Right Plantar -Current Size (cm) - Length 0.1 -Current Size (cm) - Width 0.1 -Current Size (cm) - Depth 0.1 -Total Square Cm 0.01 -Date of Last Picture (Recall this 09/28/24 field) -Photo Taken Yes -Exudate Amt None Present -Wound Margin Distinct, Outline Attached -Granulation Amt None Present (0 %) -Texture (Michell-wound Skin Appearance) Assessed -Moisture (Michell-wound Skin Appearance) Assessed -Color (Michell-wound Skin Appearance) Assessed -Temperature (Michell-wound Skin No Abnormality Appearance) (Pt Warm) -Tenderness on Palpation (Michell-wound No Skin Appearance) -Ulcer Cleansing Soap and Water -Foul Odor after Cleansing No -Anesthetic Used 5% Lidocaine Gel #13 R 2nd Toe -Combined with other wound No -Current Size (cm) - Length 0.1 -Current Size (cm) - Width 0.1 -Current Size (cm) - Depth 0.1 -Total Square Cm 0.01 -Date of Last Picture (Recall this 09/28/24 field) -Photo Taken Yes -Undermining/Tunneling No -Circular Undermining No -Exudate Amt None Present -Granulation Amt None Present (0 %) -Texture (Michell-wound Skin Appearance) Assessed -Moisture (Michell-wound Skin Appearance) Assessed -Color (Michell-wound Skin Appearance) Assessed -Tenderness on Palpation (Michell-wound No Skin Appearance) -Ulcer Cleansing Soap and Water -Foul Odor after Cleansing No -Anesthetic Used 5% Lidocaine Gel #12 R great toe -Combined with other wound No -Current Size (cm) - Length 0.1 -Current Size (cm) - Width 0.1 -Current Size (cm) - Depth 0.1 -Total Square Cm 0.01 -Date of Last Picture (Recall this 09/28/24 field) -Photo Taken Yes -Tunneling No -Undermining/Tunneling No -Circular Undermining No -Exudate Amt None Present -Wound Margin Distinct, Outline Attached -Texture (Michell-wound Skin Appearance) Assessed -Moisture (Michell-wound Skin Appearance) Assessed -Color (Michell-wound Skin Appearance) Assessed -Temperature (Michell-wound Skin No Abnormality Appearance) (Pt Warm) -Ulcer Cleansing Soap and Water -Foul Odor after Cleansing No -Anesthetic Used 5% Lidocaine Gel Lower Limb Edema Present Yes Right Calf (cm) 45 Right Ankle (cm) 26 WC - Nurse 2 - General Ulcer CM Notes Start: 09/28/24 08:01 Freq: Status: Active Protocol: Activity Type Activity Date Activity User E-sign Co-sign Detail Recorded Client Recorded Date Recorded By Document 09/28/24 08:37 SALLY [id number] 09/28/24 08:42 SALLY 09/28/24 08:37 Wound Center Nurse 2 #14 Right Plantar -Time 08:39 -Correct Patient Yes -Correct Side, Site, Position Yes -Correct Procedure Yes -Procedure Performed Yes -Type of Procedure Debridement -Clinical Debridement Subcutaneous -Tissue Removed Subcutaneous -Post Debridement (cm) - Length 1.3 -Post Debridement (cm) - Width 1.8 -Post Debridement (cm) - Depth 0.1 -Total Square (Post) (cm) 2.34 -Area of Debridement (cm) - Length 1.3 -Area of Debridement (cm) - Width 1.8 -Total Square (Area) (cm) 2.34 -Tunneling No -Undermining/Tunneling No -Circular Undermining No -Wound/Ulcer Outcome Not Healed -Ulcer Cleansing Rinsed/ Irrigated with Saline -Foul Odor after Cleansing No -Bioengineered Tissue No -Bleeding Controlled with Pressure -Treatment Response Procedure Tolerated Well -Offloading Yes -Type of Offloading Surgical Shoe -Debridement - Subq, 1st 20sq cm No #13 R 2nd Toe -Time 08:40 -Correct Patient Yes -Correct Side, Site, Position Yes -Correct Procedure Yes -Procedure Performed Yes -Type of Procedure Debridement -Clinical Debridement Subcutaneous -Tissue Removed Subcutaneous -Post Debridement (cm) - Length 0.7 -Post Debridement (cm) - Width 0.7 -Post Debridement (cm) - Depth 0.1 -Total Square (Post) (cm) 0.49 -Area of Debridement (cm) - Length 0.7 -Area of Debridement (cm) - Width 0.7 -Total Square (Area) (cm) 0.49 -Tunneling No -Undermining/Tunneling No -Circular Undermining No -Wound/Ulcer Outcome Not Healed -Ulcer Cleansing Rinsed/ Irrigated with Saline -Foul Odor after Cleansing No -Bioengineered Tissue No -Bleeding Controlled with Pressure -Treatment Response Procedure Tolerated Well -Offloading Yes -Type of Offloading Surgical Shoe -Debridement - Subq, 1st 20sq cm No #12 R great toe -Time 08:40 -Correct Patient Yes -Correct Side, Site, Position Yes -Correct Procedure Yes -Procedure Performed Yes -Type of Procedure Debridement -Clinical Debridement Subcutaneous -Tissue Removed Subcutaneous -Post Debridement (cm) - Length 1.4 -Post Debridement (cm) - Width 0.9 -Post Debridement (cm) - Depth 0.1 -Total Square (Post) (cm) 1.26 -Area of Debridement (cm) - Length 1.4 -Area of Debridement (cm) - Width 0.9 -Total Square (Area) (cm) 1.26 -Tunneling No -Undermining/Tunneling No -Circular Undermining No -Wound/Ulcer Outcome Not Healed -Ulcer Cleansing Rinsed/ Irrigated with Saline -Foul Odor after Cleansing No -Bioengineered Tissue No -Bleeding Controlled with Pressure -Treatment Response Procedure Tolerated Well -Offloading Yes -Type of Offloading Surgical Shoe -Debridement - Subq, 1st 20sq cm Yes Pain Scale: 0-10 Numeric Is Patient Pain Free? Yes Assessment/Plan Assessment/Plan (1) Non-pressure chronic ulcer of other part of right foot with fat layer exposed: CODE(S): L97.512 - Non-pressure chronic ulcer of other part of right foot with fat layer exposed PLAN: Patient was examined and evaluated. All findings were discussed with the patient. All questions were answered to the patient's satisfaction. Excisional debridement down to and including subcutaneous tissue of the right plantar full-thickness wound with a number 3 mm dermal curette done without incident. Predebridement measurement was eschar. Post debridement measurement was 1.3 x 1.8 x 0.1 cm. Excisional debridement down to including subcutaneous tissue of the right distal hallux full-thickness wound with a number 3 mm dermal curette done without incident. Predebridement measurement was eschar. Postdebridement measurement is 1.4 x 0.9 x 0.1 cm. Excisional debridement down to including subcutaneous tissue of the right distal second digit full-thickness wound with a number 3 mm dermal curette down without incident. Predebridement measurement was eschar. Postdebridement measurement is 0.7 x 0.7 x 0.1 cm. Right lower extremities were cleaned and patted dry. Betadine paint was applied to all the wounds followed by dry sterile dressing and light compression wrap. Patient was placed back in his multi POTUS boot he is waiting to have his PRAFO boot delivered. Educated patient to watch resting and hitting his toes to the right lower extremity she is understanding of. We are still waiting for authorization for the AFO through his insurance and private office once he obtains the AFO he can begin to weight-bear as tolerated and begin ambulation with his prosthesis to the left lower extremity. Patient will continue strip large control. Patient will follow-up in a week or send with Dr. Sarah 1 week (2) Type 2 diabetes mellitus with peripheral neuropathy: CODE(S): E11.42 - Type 2 diabetes mellitus with diabetic polyneuropathy
--- NOTE | 2024-09-29 08:08 | WC ---
PHOTO 09/28/24 RIGHT DORSAL
--- NOTE | 2024-09-29 08:10 | WC ---
PHOTO 09/28/24 RIGHT 2ND TOE
--- NOTE | 2024-09-29 09:40 | WC ---
PHOTO 09/28/24 RIGHT 2ND TOE
--- NOTE | 2024-09-29 09:44 | WC ---
PHOTO 09/28/24 RIGHT PLANTAR
[2024-10-05 08:16] VITALS: BP 135/64; PULSE 89; RESP 16
--- NOTE | 2024-10-05 09:14 | PCM.WC.PN ---
History of Present Illness Date of Service: 10/05/24 Chief Complaint: Full-thickness wound right ankle History of Wound: Healed right ankle wound, multiple full-thickness wound to the distal right foot Progress of Wound: Multiple full-thickness wound to the right foot distally improving no sign of infection. Subjective Subjective Mr. Olivares is a 79-year-old diabetic male presented wound care center today for follow-up evaluation of multiple full-thickness's wound to the right foot. Patient has been offloading as discussed with daily dressing changes as ordered during his last visit. Overall he is doing well. His blood sugars well-controlled. He will be following up with [facility] for his prosthesis to the left lower extremity. Overall he is grateful for his care. Doing well. Denies trauma. Denies constitutional symptoms. No other pedal complaints at this time. Objective Data Objective Data Vital Signs: Vital Signs Temp Pulse Resp BP O2 Del Method 96.1 F L 89 16 135/64 H Room Air 09/28/24 08:01 10/05/24 08:16 10/05/24 08:16 10/05/24 08:16 10/05/24 08:16 Oxygen Delivery Method Room Air Physical Exam Narrative Vascular: DP and PT pulses are faintly palpable to the right lower extremity. CFT is brisk to the bilateral lower extremity. No erythema. Neurological: Light touch intact. Protective sensation is absent. Dermatological: Full-thickness wound appreciated to distal aspect of the right foot. The right plantar ulcer measures 0.8 x 1.4 x 0.1 cm. Wound base is granular no sign of infection. The distal hallux full-thickness wound is 2.3 x 1.8 x 0.1 cm. Wound base is granular with no sign of infection. The distal right second digit full-thickness wound is 0.6 x 1.1 x 0.1 cm. Wound base is granular no sign of infection. Excisional debridement down to and including subcutaneous tissue of the right plantar full-thickness wound with a number 3 mm dermal curette done without incident. Predebridement measurement was eschar. Post debridement measurement was 0.8 x 1.4 x 0.1 cm. Excisional debridement down to including subcutaneous tissue of the right distal hallux full-thickness wound with a number 3 mm dermal curette done without incident. Predebridement measurement was eschar. Postdebridement measurement is 2.3 x 1.8 x 0.1 cm. Excisional debridement down to including subcutaneous tissue of the right distal second digit full-thickness wound with a number 3 mm dermal curette down without incident. Predebridement measurement was eschar. Postdebridement measurement is 0.6 x 1.1 x 0.1 cm. Musculoskeletal: Evidence of varus contracture to the right ankle. Patient is nonambulatory and resides in wheelchair. No pain with calf pressure bilateral. Debridement Note Debridement Note Debridement Free Text: Excisional debridement down to and including subcutaneous tissue of the right plantar full-thickness wound with a number 3 mm dermal curette done without incident. Predebridement measurement was eschar. Post debridement measurement was 0.8 x 1.4 x 0.1 cm. Excisional debridement down to including subcutaneous tissue of the right distal hallux full-thickness wound with a number 3 mm dermal curette done without incident. Predebridement measurement was eschar. Postdebridement measurement is 2.3 x 1.8 x 0.1 cm. Excisional debridement down to including subcutaneous tissue of the right distal second digit full-thickness wound with a number 3 mm dermal curette down without incident. Predebridement measurement was eschar. Postdebridement measurement is 0.6 x 1.1 x 0.1 cm. Post-Debridement Measurements and Additional Note: Post-Debridement Measurements/Treatment - Nurse 1 - General Ulcer Assessment Start: 09/28/24 08:01 Freq: Status: Active Protocol: WC.LOWPAIGET Activity Type Activity Date Activity User E-sign Co-sign Detail Recorded Client Recorded Date Recorded By Document 09/28/24 08:01 [id number] 09/28/24 08:25 Document 10/05/24 08:16 [id number] 10/05/24 08:31 CP 09/28/24 10/05/24 08:01 08:16 - Today's Visit Information Type of service Follow-up Visit Follow-up Visit (Physician/SUPERINTENDENT COMPRESSOR STATIONS (Physician/SUPERINTENDENT COMPRESSOR STATIONS ) ) Arrival Mode Wheelchair Wheelchair Transfer Assistance None Manual Patient Identification Verified (Name & Yes Yes ) Patient Requires Transmission-Based No No Precautions Vital Signs Temperature (97.8 F-99.1 F) 96.1 F L Temperature Source Temporal Pulse Rate (60-100) 89 89 Pulse Location Monitor Monitor Respiratory Rate (12-18) 18 16 Respiratory rate source Observation Observation Oxygen Delivery Method Room Air Room Air Blood Pressure (90/60-120/80) 105/66 135/64 H Blood Pressure Mean (mm Hg) 79 87 Source Monitor Monitor Position Sitting Sitting Blood Pressure Location Right Arm Right Arm History Since Last Visit- (Skip if this is Patient's initial visit) Have you changed medications since your No No last visit? Any new allergies or adverse reactions No No Had a fall/change in ADL's that may No No increase risk of falls Signs or symptoms of abuse and/or No No neglect since last visit Have you been in the hospital since your No No last visit? Has dressing in place as prescribed Yes Yes Has compression in place as prescribed Yes N/A Has offloadiing in place as prescribed Yes Yes Experienced any changes in pain level or No No management Right Footwear Removable Cast No Footwear Walker/Walking Boot Pain Scale: 0-10 Numeric Is Patient Pain Free? Yes Yes WC - Nurse 1 - General Ulcer Measurement Start: 09/28/24 08:01 Freq: Status: Active Protocol: Activity Type Activity Date Activity User E-sign Co-sign Detail Recorded Client Recorded Date Recorded By Document 09/28/24 08:01 [id number] 09/28/24 08:25 Document 10/05/24 08:16 [id number] 10/05/24 08:31 09/28/24 10/05/24 08:01 08:16 Wound Center Nurse 1 #11 R dorsal foot -Combined with other wound No -Current Size (cm) - Length 0.1 -Current Size (cm) - Width 0.1 -Current Size (cm) - Depth 0.1 -Total Square Cm 0.01 -Date of Last Picture (Recall this 09/28/24 field) -Photo Taken Yes -Tunneling No -Undermining/Tunneling No -Circular Undermining No -Exudate Amt None Present -Wound Margin Distinct, Outline Attached -Texture (Michell-wound Skin Appearance) Assessed -Moisture (Michell-wound Skin Appearance) Assessed -Color (Michell-wound Skin Appearance) Assessed -Temperature (Michell-wound Skin No Abnormality Appearance) (Pt Warm) -Tenderness on Palpation (Michell-wound No Skin Appearance) -Ulcer Cleansing Soap and Water -Foul Odor after Cleansing No -Anesthetic Used 5% Lidocaine Gel #14 Right Plantar -Current Size (cm) - Length 0.1 1 -Current Size (cm) - Width 0.1 1 -Current Size (cm) - Depth 0.1 0.1 -Total Square Cm 0.01 1 -Date of Last Picture (Recall this 09/28/24 10/05/24 field) -Photo Taken Yes Yes -Exudate Amt None Present Small -Exudate Type Serous -Wound Margin Distinct, Flat & Intact Outline Attached -Granulation Amt None Present (0 Small (1-33%) %) -Granulation Quality Addis -Slough/Fibrin Yes -Necrosis Amt Small (1-33%) -Necrotic Tissue Type Adherent Slough -Structure Exposed N/A -Texture (Michell-wound Skin Appearance) Assessed -Moisture (Michell-wound Skin Appearance) Assessed No Abnormality -Color (Michell-wound Skin Appearance) Assessed No Abnormality -Temperature (Michell-wound Skin No Abnormality Appearance) (Pt Warm) -Tenderness on Palpation (Michell-wound No Yes Skin Appearance) -Ulcer Cleansing Soap and Water Soap and Water -Foul Odor after Cleansing No No -Anesthetic Used 5% Lidocaine 5% Lidocaine Gel Gel #13 R 2nd Toe -Combined with other wound No -Current Size (cm) - Length 0.1 0.4 -Current Size (cm) - Width 0.1 0.5 -Current Size (cm) - Depth 0.1 0.1 -Total Square Cm 0.01 0.20 -Date of Last Picture (Recall this 09/28/24 10/05/24 field) -Photo Taken Yes Yes -Tunneling No -Undermining/Tunneling No No -Circular Undermining No -Exudate Amt None Present Small -Exudate Type Serous -Wound Margin Flat & Intact -Granulation Amt None Present (0 Medium (34-66%) %) -Granulation Quality Addis -Slough/Fibrin Yes -Necrosis Amt Small (1-33%) -Necrotic Tissue Type Adherent Slough -Structure Exposed N/A -Texture (Michell-wound Skin Appearance) Assessed -Moisture (Michell-wound Skin Appearance) Assessed No Abnormality -Color (Michell-wound Skin Appearance) Assessed No Abnormality -Temperature (Michell-wound Skin No Abnormality Appearance) (Pt Warm) -Tenderness on Palpation (Michell-wound No No Skin Appearance) -Ulcer Cleansing Soap and Water Soap and Water -Foul Odor after Cleansing No -Anesthetic Used 5% Lidocaine 5% Lidocaine Gel Gel #12 R great toe -Combined with other wound No -Current Size (cm) - Length 0.1 1.1 -Current Size (cm) - Width 0.1 0.6 -Current Size (cm) - Depth 0.1 0.1 -Total Square Cm 0.01 0.66 -Date of Last Picture (Recall this 09/28/24 field) -Photo Taken Yes -Tunneling No -Undermining/Tunneling No -Circular Undermining No -Exudate Amt None Present Small -Exudate Type Serous -Wound Margin Distinct, Flat & Intact Outline Attached -Granulation Amt Large (67-100%) -Granulation Quality Red -Necrosis Amt None Present (0 %) -Structure Exposed N/A -Texture (Michell-wound Skin Appearance) Assessed No Abnormality -Moisture (Michell-wound Skin Appearance) Assessed No Abnormality -Color (Michell-wound Skin Appearance) Assessed No Abnormality -Temperature (Michell-wound Skin No Abnormality No Abnormality Appearance) (Pt Warm) (Pt Warm) -Tenderness on Palpation (Michell-wound Yes Skin Appearance) -Ulcer Cleansing Soap and Water Soap and Water -Foul Odor after Cleansing No -Anesthetic Used 5% Lidocaine 5% Lidocaine Gel Gel Lower Limb Edema Present Yes Right Calf (cm) 45 Right Ankle (cm) 26 - Nurse 2 - General Ulcer CM Notes Start: 09/28/24 08:01 Freq: Status: Active Protocol: Activity Type Activity Date Activity User E-sign Co-sign Detail Recorded Client Recorded Date Recorded By Document 09/28/24 08:37 [id number] 09/28/24 08:42 Document 10/05/24 08:43 DS [id number] 10/05/24 08:49 DS 09/28/24 10/05/24 08:37 08:43 Wound Center Nurse 2 #14 Right Plantar -Time 08:39 08:43 -Correct Patient Yes Yes -Correct Side, Site, Position Yes Yes -Correct Procedure Yes Yes -Procedure Performed Yes Yes -Type of Procedure Debridement Debridement -Clinical Debridement Subcutaneous Subcutaneous -Tissue Removed Subcutaneous Subcutaneous -Post Debridement (cm) - Length 1.3 0.8 -Post Debridement (cm) - Width 1.8 1.4 -Post Debridement (cm) - Depth 0.1 0.1 -Total Square (Post) (cm) 2.34 1.12 -Area of Debridement (cm) - Length 1.3 0.8 -Area of Debridement (cm) - Width 1.8 1.4 -Total Square (Area) (cm) 2.34 1.12 -Tunneling No No -Undermining/Tunneling No No -Circular Undermining No No -Wound/Ulcer Outcome Not Healed Not Healed -Ulcer Cleansing Rinsed/ Rinsed/ Irrigated with Irrigated with Saline Saline -Foul Odor after Cleansing No No -Bioengineered Tissue No No -Bleeding Controlled with Pressure Pressure -Treatment Response Procedure Procedure Tolerated Well Tolerated Well -Offloading Yes -Type of Offloading Surgical Shoe -Debridement - Subq, 1st 20sq cm No No #13 R 2nd Toe -Time 08:40 08:44 -Correct Patient Yes Yes -Correct Side, Site, Position Yes Yes -Correct Procedure Yes Yes -Procedure Performed Yes Yes -Type of Procedure Debridement Debridement -Clinical Debridement Subcutaneous Subcutaneous -Tissue Removed Subcutaneous Subcutaneous -Post Debridement (cm) - Length 0.7 0.6 -Post Debridement (cm) - Width 0.7 1.1 -Post Debridement (cm) - Depth 0.1 0.1 -Total Square (Post) (cm) 0.49 0.66 -Area of Debridement (cm) - Length 0.7 0.6 -Area of Debridement (cm) - Width 0.7 0.1 -Total Square (Area) (cm) 0.49 0.06 -Tunneling No No -Undermining/Tunneling No No -Circular Undermining No No -Wound/Ulcer Outcome Not Healed Not Healed -Ulcer Cleansing Rinsed/ Irrigated with Saline -Foul Odor after Cleansing No -Bioengineered Tissue No -Bleeding Controlled with Pressure Pressure -Treatment Response Procedure Procedure Tolerated Well Tolerated Well -Offloading Yes -Type of Offloading Surgical Shoe -Total Non-Weight Bearing to Right Lower Extremity -Debridement - Subq, 1st 20sq cm No Yes #12 R great toe -Time 08:40 08:44 -Correct Patient Yes Yes -Correct Side, Site, Position Yes Yes -Correct Procedure Yes Yes -Procedure Performed Yes Yes -Type of Procedure Debridement Debridement -Clinical Debridement Subcutaneous Subcutaneous -Tissue Removed Subcutaneous Subcutaneous -Post Debridement (cm) - Length 1.4 2.3 -Post Debridement (cm) - Width 0.9 1.8 -Post Debridement (cm) - Depth 0.1 0.1 -Total Square (Post) (cm) 1.26 4.14 -Area of Debridement (cm) - Length 1.4 2.3 -Area of Debridement (cm) - Width 0.9 1.8 -Total Square (Area) (cm) 1.26 4.14 -Tunneling No No -Undermining/Tunneling No No -Circular Undermining No No -Wound/Ulcer Outcome Not Healed Not Healed -Ulcer Cleansing Rinsed/ Rinsed/ Irrigated with Irrigated with Saline Saline -Foul Odor after Cleansing No No -Bioengineered Tissue No No -Bleeding Controlled with Pressure Pressure -Treatment Response Procedure Procedure Tolerated Well Tolerated Well -Offloading Yes -Type of Offloading Surgical Shoe -Debridement - Subq, 1st 20sq cm Yes No Pain Scale: 0-10 Numeric Is Patient Pain Free? Yes Yes - Nurse 3 - General Ulcer D/C NN Start: 09/28/24 08:01 Freq: Status: Active Protocol: Activity Type Activity Date Activity User E-sign Co-sign Detail Recorded Client Recorded Date Recorded By Document 09/28/24 08:55 [id number] 09/28/24 08:56 Document 10/05/24 09:03 RB [id number] 10/05/24 09:04 RB 09/28/24 10/05/24 08:55 09:03 Wound Care Center Nurse 3 #14 Right Plantar -Ulcer Cleansing Not Cleansed betadine -Foul Odor after Cleansing No -Other Dressing ABD -Primary Dressing Covered/Secured with Dry Gauze & Dry Gauze & Roll Gauze, Roll Gauze, Secured with Secured with Tape Tape #13 R 2nd Toe -Ulcer Cleansing Not Cleansed betadine -Negative Pressure Wound Therapy N/A -Primary Dressing Covered/Secured with Dry Gauze Dry Gauze & Roll Gauze, Secured with Tape #12 R great toe -Ulcer Cleansing Not Cleansed betadine -Foul Odor after Cleansing No -Primary Dressing Covered/Secured with Dry Gauze Dry Gauze & Roll Gauze, Secured with Tape RLE -Lotion applied to leg before No compression wrap -Compression Wrap Armaan Wrap Armaan Wrap Treatment Response Procedure Tolerated Well Pain Scale: 0-10 Numeric Is Patient Pain Free? Yes Yes - Visit Discharge Discharge Condition Stable Stable Ambulatory Status Wheelchair Wheelchair Transportation [facility] Medication Reconcilliation completed & No provided to patient/care provider Clinical Summary of Care Provided Yes Yes Assessment/Plan Assessment/Plan (1) Non-pressure chronic ulcer of other part of right foot with fat layer exposed: CODE(S): L97.512 - Non-pressure chronic ulcer of other part of right foot with fat layer exposed PLAN: Patient was examined and evaluated. All findings were discussed with the patient. All questions were answered to the patient's satisfaction. Excisional debridement down to and including subcutaneous tissue of the right plantar full-thickness wound with a number 3 mm dermal curette done without incident. Predebridement measurement was eschar. Post debridement measurement was 0.8 x 1.4 x 0.1 cm. Excisional debridement down to including subcutaneous tissue of the right distal hallux full-thickness wound with a number 3 mm dermal curette done without incident. Predebridement measurement was eschar. Postdebridement measurement is 2.3 x 1.8 x 0.1 cm. Excisional debridement down to including subcutaneous tissue of the right distal second digit full-thickness wound with a number 3 mm dermal curette down without incident. Predebridement measurement was eschar. Postdebridement measurement is 0.6 x 1.1 x 0.1 cm. Right lower extremities are cleaned and patted dry. The full-thickness wounds were dressed with Betadine paint with toe spacers, dry sterile dressing and light compression wrap. Patient will have daily dressing changes. Educated the patient on signs symptoms of infection and [facility]. He will continue all oral antibiotics until gone. Continue strict blood sugar control. Patient will follow-up in a week or send with Dr. Sarah 1 week (2) Type 2 diabetes mellitus with peripheral neuropathy: CODE(S): E11.42 - Type 2 diabetes mellitus with diabetic polyneuropathy
--- NOTE | 2024-10-06 09:32 | WC ---
PHOTO 10/05/24 RIGHT PLANTAR
--- NOTE | 2024-10-06 09:34 | WC ---
PHOTO 10/04/24 RIGHT HALLUX
--- NOTE | 2024-10-06 09:36 | WC ---
PHOTO 10/05/24 RIGHT 2ND TOE
== END 2024-10-12 23:59 | disposition home or self-care (01) ==
LOC: WC 08:00
PROVIDERS: PCP Internal Medicine Infectious Disease; Visit Provider Podiatrist Foot & Ankle Surgery
DX: E11.622 Type 2 diabetes mellitus with other skin ulcer (principal); L97.512 Non-pressure chronic ulcer of other part of right foot with fat layer exposed; Z89.512 Acquired absence of left leg below knee; E11.42 Type 2 diabetes mellitus with diabetic polyneuropathy
CPT/HCPCS: 11042; 99213; G0463

== ENCOUNTER 2024-11-02 08:00 | Outpatient (RCR) | payer MEDICARE, MEDICAID, SELFPAY ==
[2024-10-13 00:21] VITALS: BP 135/64; PULSE 89; RESP 16; TEMP 35.6
[2024-10-19 08:17] VITALS: BP 142/83; PULSE 64; RESP 18; TEMP 36.2
--- NOTE | 2024-10-19 08:52 | PN.PCM_ITS ---
History of Present Illness Date of Service: 10/19/24 Chief Complaint: Full-thickness wound right ankle History of Wound: Healed right ankle wound, multiple full-thickness wound to the distal right foot Progress of Wound: Stable slow healing wounds to the right lower extremity digits, foot and a new wound to the lateral ankle. Stable no sign of infection. Subjective Subjective Mr. Olivares is a 79-year-old diabetic male nonambulatory seen at [facility] today for follow-up evaluation of distal digits wounds with new reulcerations to the lateral foot and lateral ankle to the right foot. Patient has been very dependent with his right lower extremity. 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 He resides in wheelchair. In his primus nonambulatory at this time. He is working with physical therapy for more strength in the upper body but slow to progress. He denies any trauma. Denies constitutional symptoms. No other pedal complaints at this time. Objective Data Objective Data Vital Signs: Vital Signs Temp Pulse Resp BP O2 Del Method 97.1 F L 64 18 142/83 H Room Air 10/19/24 08:17 10/19/24 08:17 10/19/24 08:17 10/19/24 08:17 10/19/24 08:17 Oxygen Delivery Method Room Air Physical Exam Narrative Vascular: DP and PT pulses are faintly palpable to the right lower extremity. CFT is brisk to the bilateral lower extremity. No erythema. Nonpitting edema to right lower extremity. Neurological: Light touch intact. Protective sensation is absent. Dermatological: Full-thickness wound appreciated to distal aspect of the right foot. Right plantar and right second digit ulcers are now healed. Right hallux ulcer measures 1.5 x 1.4 x 0.1 cm. Left lateral foot ulceration measures 0.5 x 0.5 x 0.1 cm. Right lateral ankle ulcer measures 0.7 x 1.0 x 0.1 cm. All wounds are granular in nature. Nonpitting edema to the right lower extremity. Excisional debridement down to and including subcutaneous tissue with a number 3 mm dermal curette to the distal hallux full-thickness wound done without incid ent. Predebridement measurement was eschar. Postdebridement measurement is 1.5 x 1.4 x 0.1 cm. Excisional debridement down to and including subcutaneous tissue with a number 3 mm dermal curette to the lateral right foot full-thickness wound done without incident. Predebridement measurement was eschar. Postdebridement measurement is 0.5 x 0.5 x 0.1 cm. Excisional debridement down to including subcutaneous tissue with a number 3 mm dermal curette to the right lateral ankle at the level of the fibula done without incident. Predebridement measurement was 0.5 x 0.8 x 0.1 cm. Postdebridement measurement is 0.7 x 1.0 x 0.1 cm. Musculoskeletal: Evidence of varus contracture to the right ankle. Patient is nonambulatory and resides in wheelchair. No pain with calf pressure bilateral. Debridement Note Debridement Note Debridement Free Text: Excisional debridement down to and including subcutaneous tissue with a number 3 mm dermal curette to the distal hallux full-thickness wound done without incident. Predebridement measurement was eschar. Postdebridement measurement is 1.5 x 1.4 x 0.1 cm. Excisional debridement down to and including subcutaneous tissue with a number 3 mm dermal curette to the lateral right foot full-thickness wound done without incident. Predebridement measurement was eschar. Postdebridement measurement is 0.5 x 0.5 x 0.1 cm. Excisional debridement down to including subcutaneous tissue with a number 3 mm dermal curette to the right lateral ankle at the level of the fibula done without incident. Predebridement measurement was 0.5 x 0.8 x 0.1 cm. Postdebridement measurement is 0.7 x 1.0 x 0.1 cm. Post-Debridement Measurements and Additional Note: Post-Debridement Measurements/Treatment - Nurse 1 - General Ulcer Assessment Start: 10/19/24 08:17 Freq: Status: Active Protocol: [email or web address] Activity Type Activity Date Activity User E-sign Co-sign Detail Recorded Client Recorded Date Recorded By Document 10/19/24 08:17 ANTELMO [id number] 10/19/24 08:26 KW 10/19/24 08:17 - Today's Visit Information Type of service Follow-up Visit (Physician/MUSIC VIDEO DIRECTOR ) Arrival Mode Wheelchair Patient Identification Verified (Name & Yes ) Vital Signs Temperature (97.8 F-99.1 F) 97.1 F L Temperature Source Temporal Pulse Rate (60-100) 64 Pulse Location Monitor Respiratory Rate (12-18) 18 Respiratory rate source Observation Oxygen Delivery Method Room Air Blood Pressure (90/60-120/80) 142/83 H Blood Pressure Mean (mm Hg) 102 History Since Last Visit- (Skip if this is Patient's initial visit) Have you changed medications since your No last visit? Any new allergies or adverse reactions No Had a fall/change in ADL's that may No increase risk of falls Signs or symptoms of abuse and/or No neglect since last visit Have you been in the hospital since your No last visit? Has dressing in place as prescribed Yes Has compression in place as prescribed Yes Has offloadiing in place as prescribed Yes Experienced any changes in pain level or No management Left Footwear No Footwear Right Footwear No Footwear Pain Scale: 0-10 Numeric Is Patient Pain Free? Yes WC - Nurse 1 - General Ulcer Measurement Start: 10/19/24 08:17 Freq: Status: Active Protocol: Activity Type Activity Date Activity User E-sign Co-sign Detail Recorded Client Recorded Date Recorded By Document 10/19/24 08:17 [id number] 10/19/24 08:26 KW 10/19/24 08:17 Wound Center Nurse 1 #14 Right Plantar -Current Size (cm) - Length 0.1 -Current Size (cm) - Width 0.1 -Current Size (cm) - Depth 0 -Total Square Cm 0.01 -Date of Last Picture (Recall this 10/19/24 field) -Exudate Amt None Present -Wound Margin Distinct, Outline Attached -Texture (Michell-wound Skin Appearance) Assessed -Moisture (Michell-wound Skin Appearance) Assessed -Color (Michell-wound Skin Appearance) Assessed -Temperature (Michell-wound Skin No Abnormality Appearance) (Pt Warm) -Tenderness on Palpation (Michell-wound No Skin Appearance) -Ulcer Cleansing Soap and Water -Foul Odor after Cleansing No -Anesthetic Used 5% Lidocaine Gel #13 R 2nd Toe -Current Size (cm) - Length 0.1 -Current Size (cm) - Width 0.1 -Current Size (cm) - Depth 0 -Total Square Cm 0.01 -Date of Last Picture (Recall this 10/19/24 field) -Texture (Michell-wound Skin Appearance) Assessed -Moisture (Michell-wound Skin Appearance) Assessed -Color (Michell-wound Skin Appearance) Assessed -Temperature (Michell-wound Skin No Abnormality Appearance) (Pt Warm) -Tenderness on Palpation (Michell-wound No Skin Appearance) -Ulcer Cleansing Soap and Water -Foul Odor after Cleansing No -Anesthetic Used 5% Lidocaine Gel #12 R great toe -Current Size (cm) - Length 2 -Current Size (cm) - Width 2 -Current Size (cm) - Depth 0.1 -Total Square Cm 4 -Date of Last Picture (Recall this 10/19/24 field) -Exudate Amt None Present -Wound Margin Distinct, Outline Attached -Texture (Michell-wound Skin Appearance) Assessed -Moisture (Michell-wound Skin Appearance) Assessed -Color (Michell-wound Skin Appearance) Assessed -Temperature (Michell-wound Skin No Abnormality Appearance) (Pt Warm) -Tenderness on Palpation (Michell-wound No Skin Appearance) -Ulcer Cleansing Soap and Water -Foul Odor after Cleansing No -Anesthetic Used 5% Lidocaine Gel WC - Nurse 2 - General Ulcer CM Notes Start: 10/19/24 08:17 Freq: Status: Active Protocol: Activity Type Activity Date Activity User E-sign Co-sign Detail Recorded Client Recorded Date Recorded By Document 10/19/24 08:39 SALLY [id number] 10/19/24 08:45 SALLY 10/19/24 08:39 Wound Center Nurse 2 #14 Right Plantar -Time 08:40 -Correct Patient Yes -Correct Side, Site, Position No -Correct Procedure No -Procedure Performed No -Post Debridement (cm) - Length 0 -Post Debridement (cm) - Width 0 -Post Debridement (cm) - Depth 0 -Total Square (Post) (cm) 0 -Area of Debridement (cm) - Length 0 -Area of Debridement (cm) - Width 0 -Total Square (Area) (cm) 0 -Tunneling No -Undermining/Tunneling No -Circular Undermining No -Wound/Ulcer Outcome Healed- Epithelialized -Ulcer Cleansing Rinsed/ Irrigated with Saline -Foul Odor after Cleansing No -Bioengineered Tissue No -Bleeding Controlled with Pressure #13 R 2nd Toe -Correct Patient Yes -Correct Side, Site, Position No -Correct Procedure No -Procedure Performed No -Post Debridement (cm) - Length 0 -Post Debridement (cm) - Width 0 -Post Debridement (cm) - Depth 0 -Total Square (Post) (cm) 0 -Area of Debridement (cm) - Length 0 -Area of Debridement (cm) - Width 0 -Total Square (Area) (cm) 0 -Wound/Ulcer Outcome Healed- Epithelialized 16-right lateral ankle -Time 08:43 -Correct Patient Yes -Correct Side, Site, Position Yes -Correct Procedure Yes -Procedure Performed Yes -Type of Procedure Debridement -Clinical Debridement Subcutaneous -Tissue Removed Subcutaneous -Post Debridement (cm) - Length 0.7 -Post Debridement (cm) - Width 1.0 -Post Debridement (cm) - Depth 0.1 -Total Square (Post) (cm) 0.70 -Area of Debridement (cm) - Length 0.7 -Area of Debridement (cm) - Width 1.0 -Total Square (Area) (cm) 0.70 -Tunneling No -Undermining/Tunneling No -Circular Undermining No -Wound/Ulcer Outcome Not Healed -Ulcer Cleansing Rinsed/ Irrigated with Saline -Foul Odor after Cleansing No -Bioengineered Tissue No -Bleeding Controlled with Pressure -Treatment Response Procedure Tolerated Well -Offloading No -Debridement - Subq, 1st 20sq cm No 15-Right lateral foot -Time 08:44 -Correct Patient Yes -Correct Side, Site, Position Yes -Correct Procedure Yes -Procedure Performed Yes -Type of Procedure Debridement -Clinical Debridement Subcutaneous -Tissue Removed Subcutaneous -Post Debridement (cm) - Length 0.5 -Post Debridement (cm) - Width 0.5 -Post Debridement (cm) - Depth 0.1 -Total Square (Post) (cm) 0.25 -Area of Debridement (cm) - Length 0.5 -Area of Debridement (cm) - Width 0.5 -Total Square (Area) (cm) 0.25 -Undermining/Tunneling No -Circular Undermining No -Wound/Ulcer Outcome Not Healed -Ulcer Cleansing Rinsed/ Irrigated with Saline -Foul Odor after Cleansing No -Bioengineered Tissue No -Bleeding Controlled with Pressure -Treatment Response Procedure Tolerated Well -Offloading No -Debridement - Subq, 1st 20sq cm No #12 R great toe -Time 08:42 -Correct Patient Yes -Correct Side, Site, Position Yes -Correct Procedure Yes -Procedure Performed Yes -Type of Procedure Debridement -Clinical Debridement Subcutaneous -Tissue Removed Subcutaneous -Post Debridement (cm) - Length 1.5 -Post Debridement (cm) - Width 1.4 -Post Debridement (cm) - Depth 0.1 -Total Square (Post) (cm) 2.10 -Area of Debridement (cm) - Length 1.5 -Area of Debridement (cm) - Width 1.4 -Total Square (Area) (cm) 2.10 -Tunneling No -Undermining/Tunneling No -Circular Undermining No -Wound/Ulcer Outcome Not Healed -Ulcer Cleansing Rinsed/ Irrigated with Saline -Foul Odor after Cleansing No -Bioengineered Tissue No -Bleeding Controlled with Pressure -Treatment Response Procedure Tolerated Well -Offloading No -Debridement - Subq, 1st 20sq cm Yes Pain Scale: 0-10 Numeric Is Patient Pain Free? Yes Assessment/Plan Assessment/Plan (1) Non-pressure chronic ulcer of right ankle with fat layer exposed: CODE(S): L97.312 - Non-pressure chronic ulcer of right ankle with fat layer exposed PLAN: Patient was examined and evaluated. All findings were discussed with the patient. All questions were answered to the patient's satisfaction. Excisional debridement down to and including subcutaneous tissue with a number 3 mm dermal curette to the distal hallux full-thickness wound done without incident. Predebridement measurement was eschar. Postdebridement measurement is 1.5 x 1.4 x 0.1 cm. Excisional debridement down to and including subcutaneous tissue with a number 3 mm dermal curette to the lateral right foot full-thickness wound done without incident. Predebridement measurement was eschar. Postdebridement measurement is 0.5 x 0.5 x 0.1 cm. Excisional debridement down to including subcutaneous tissue with a number 3 mm dermal curette to the right lateral ankle at the level of the fibula done without incident. Predebridement measurement was 0.5 x 0.8 x 0.1 cm. Postdebridement measurement is 0.7 x 1.0 x 0.1 cm. The right lower extremities were cleaned and patted dry. There is no sign of infection. All ulcerations were dressed with Betadine paint and wrapped with dry sterile dressing. Educated the patient as well as the caregiver for the importance of elevation and not to keep his right lower extremity in a dependent position. Verbal orders were given to have his AFO adjusted so he may participate more in physical therapy. Adjustment will be provided by Christine and to call the provider myself with any further questions. No plan for surgical intervention at this time. Follow-up at the wound care center with Dr. Sarah in 2 week. (2) Non-pressure chronic ulcer of other part of left foot with fat layer exposed: CODE(S): L97.522 - Non-pressure chronic ulcer of other part of left foot with fat layer exposed
--- NOTE | 2024-10-20 10:36 | WC ---
PHOTO 10/19/24 RIGHT HALLUX
--- NOTE | 2024-10-20 10:38 | WC ---
PHOTO 10/19/24 RIGHT PLANTAR
[2024-11-02 08:16] VITALS: BP 132/62; PULSE 87; RESP 16
--- NOTE | 2024-11-02 09:03 | PN.PCM_ITS ---
History of Present Illness Date of Service: 11/02/24 Chief Complaint: Full-thickness wound right ankle History of Wound: Healed right ankle wound, multiple full-thickness wound to the distal right foot Progress of Wound: Stable slow healing wounds to the right lower extremity digits, foot and a new wound to the lateral ankle. Stable no sign of infection. Subjective Subjective Mr. Olivares is a 79-year-old diabetic male presenting to wound care center today follow-up evaluation of right hallux full-thickness wound, lateral foot and ankle of the right lower extremity. He is doing well. He has been working with physical therapy and is able to sit and stand with his prosthesis which is great. He is very grateful for his care. Blood sugars well-controlled. Denies trauma. Denies constitutional symptoms. No other pedal complaints at this time. Objective Data Objective Data Vital Signs: Vital Signs Temp Pulse Resp BP O2 Del Method 97.1 F L 87 16 132/62 H Room Air 10/19/24 08:17 11/02/24 08:16 11/02/24 08:16 11/02/24 08:16 11/02/24 08:16 Oxygen Delivery Method Room Air Physical Exam Narrative Vascular: DP and PT pulses are faintly palpable to the right lower extremity. CFT is brisk to the bilateral lower extremity. No erythema. Nonpitting edema to right lower extremity. Neurological: Light touch intact. Protective sensation is absent. Dermatological: Full-thickness wound appreciated to distal aspect of the right foot. Right hallux ulcer measures 0.4 x 1.0 x 0.1 cm. Right lateral foot ulceration is now healed. Right lateral ankle ulcer measures 0.3 x 0.5 x 0.1 cm. All wounds are granular in nature. Nonpitting edema to the right lower extremity. Excisional debridement down to and including subcutaneous tissue with a number 3 mm dermal curette to the distal hallux full-thickness wound done without inci dent. Predebridement measurement was eschar. Postdebridement measurement is 0.4 x 1.0 x 0.1 cm. Excisional debridement down to including subcutaneous tissue with a number 3 mm dermal curette to the right lateral ankle at the level of the fibula done without incident. Predebridement measurement was callus. Postdebridement measurement is 0.3 x 0.5 x 0.1 cm. Musculoskeletal: Evidence of varus contracture to the right ankle. Patient is nonambulatory and resides in wheelchair. No pain with calf pressure bilateral. Debridement Note Debridement Note Debridement Free Text: Excisional debridement down to and including subcutaneous tissue with a number 3 mm dermal curette to the distal hallux full-thickness wound done without incident. Predebridement measurement was eschar. Postdebridement measurement is 0.4 x 1.0 x 0.1 cm. Excisional debridement down to including subcutaneous tissue with a number 3 mm dermal curette to the right lateral ankle at the level of the fibula done without incident. Predebridement measurement was callus. Postdebridement measurement is 0.3 x 0.5 x 0.1 cm. Post-Debridement Measurements and Additional Note: Post-Debridement Measurements/Treatment WC - Nurse 1 - General Ulcer Assessment Start: 10/19/24 08:17 Freq: Status: Active Protocol: WC.LOWEXT Activity Type Activity Date Activity User E-sign Co-sign Detail Recorded Client Recorded Date Recorded By Document 10/19/24 08:17 [id number] 10/19/24 08:26 Document 11/02/24 08:16 [id number] 11/02/24 08:31 10/19/24 11/02/24 08:17 08:16 - Today's Visit Information Type of service Follow-up Visit Follow-up Visit (Physician/MAINFRAME SYSTEMS ENGINEER (Physician/MAINFRAME SYSTEMS ENGINEER ) ) Arrival Mode Wheelchair Wheelchair Transfer Assistance None Patient Identification Verified (Name & Yes Yes ) Patient Requires Transmission-Based No Precautions Vital Signs Temperature (97.8 F-99.1 F) 97.1 F L Temperature Source Temporal Pulse Rate (60-100) 64 87 Pulse Location Monitor Monitor Respiratory Rate (12-18) 18 16 Respiratory rate source Observation Observation Oxygen Delivery Method Room Air Room Air Blood Pressure (90/60-120/80) 142/83 H 132/62 H Blood Pressure Mean (mm Hg) 102 85 Source Monitor Position Sitting Blood Pressure Location Right Arm History Since Last Visit- (Skip if this is Patient's initial visit) Have you changed medications since your No No last visit? Any new allergies or adverse reactions No No Had a fall/change in ADL's that may No No increase risk of falls Signs or symptoms of abuse and/or No No neglect since last visit Have you been in the hospital since your No No last visit? Has dressing in place as prescribed Yes Yes Has compression in place as prescribed Yes Yes Has offloadiing in place as prescribed Yes Yes Experienced any changes in pain level or No No management Left Footwear No Footwear [place]/Foam Right Footwear No Footwear Pain Scale: 0-10 Numeric Is Patient Pain Free? Yes Yes WC - Nurse 1 - General Ulcer Measurement Start: 10/19/24 08:17 Freq: Status: Active Protocol: Activity Type Activity Date Activity User E-sign Co-sign Detail Recorded Client Recorded Date Recorded By Document 10/19/24 08:17 KW [id number] 10/19/24 08:26 KW Document 11/02/24 08:16 GM [id number] 11/02/24 08:31 GM 10/19/24 11/02/24 08:17 08:16 Wound Center Nurse 1 15-Right lateral foot -Current Size (cm) - Length 0.4 -Current Size (cm) - Width 0.4 -Current Size (cm) - Depth 0.1 -Total Square Cm 0.16 -Photo Taken No -Texture (Michell-wound Skin Appearance) Assessed -Moisture (Michell-wound Skin Appearance) Assessed -Color (Michell-wound Skin Appearance) Assessed -Ulcer Cleansing Soap and Water -Foul Odor after Cleansing No -Wound Comment(s) scabbed #14 Right Plantar -Current Size (cm) - Length 0.1 -Current Size (cm) - Width 0.1 -Current Size (cm) - Depth 0 -Total Square Cm 0.01 -Date of Last Picture (Recall this 10/19/24 field) -Exudate Amt None Present -Wound Margin Distinct, Outline Attached -Texture (Michell-wound Skin Appearance) Assessed -Moisture (Michell-wound Skin Appearance) Assessed -Color (Michell-wound Skin Appearance) Assessed -Temperature (Michell-wound Skin No Abnormality Appearance) (Pt Warm) -Tenderness on Palpation (Michell-wound No Skin Appearance) -Ulcer Cleansing Soap and Water -Foul Odor after Cleansing No -Anesthetic Used 5% Lidocaine Gel #13 R 2nd Toe -Current Size (cm) - Length 0.1 -Current Size (cm) - Width 0.1 -Current Size (cm) - Depth 0 -Total Square Cm 0.01 -Date of Last Picture (Recall this 10/19/24 field) -Texture (Michell-wound Skin Appearance) Assessed -Moisture (Michell-wound Skin Appearance) Assessed -Color (Michell-wound Skin Appearance) Assessed -Temperature (Michell-wound Skin No Abnormality Appearance) (Pt Warm) -Tenderness on Palpation (Michell-wound No Skin Appearance) -Ulcer Cleansing Soap and Water -Foul Odor after Cleansing No -Anesthetic Used 5% Lidocaine Gel 16-right lateral ankle -Combined with other wound No -Current Size (cm) - Length 0.3 -Current Size (cm) - Width 0.3 -Current Size (cm) - Depth 0.1 -Total Square Cm 0.09 -Photo Taken No -Epithelialization Large 67-100% -Tunneling No -Undermining/Tunneling No -Circular Undermining No -Wound Margin Distinct, Outline Attached -Granulation Amt Small (1-33%) -Granulation Quality [place] -Slough/Fibrin No -Texture (Michell-wound Skin Appearance) Assessed -Moisture (Michell-wound Skin Appearance) Assessed -Color (Michell-wound Skin Appearance) Assessed -Temperature (Michell-wound Skin No Abnormality Appearance) (Pt Warm) -Tenderness on Palpation (Michell-wound No Skin Appearance) -Ulcer Cleansing Soap and Water -Foul Odor after Cleansing No -Anesthetic Used 5% Lidocaine Gel #12 R great toe -Current Size (cm) - Length 2 2.2 -Current Size (cm) - Width 2 1.4 -Current Size (cm) - Depth 0.1 0.1 -Total Square Cm 4 3.08 -Date of Last Picture (Recall this 10/19/24 field) -Photo Taken No -Epithelialization Medium 34-66% -Tunneling No -Undermining/Tunneling No -Circular Undermining No -Exudate Amt None Present None Present -Wound Margin Distinct, Distinct, Outline Outline Attached Attached -Texture (Michell-wound Skin Appearance) Assessed Assessed -Moisture (Michell-wound Skin Appearance) Assessed Assessed -Color (Michell-wound Skin Appearance) Assessed Assessed -Temperature (Michell-wound Skin No Abnormality No Abnormality Appearance) (Pt Warm) (Pt Warm) -Tenderness on Palpation (Michell-wound No Skin Appearance) -Ulcer Cleansing Soap and Water Soap and Water -Foul Odor after Cleansing No No -Anesthetic Used 5% Lidocaine 5% Lidocaine Gel Gel Lower Limb Edema Present No Point of measurement (cm from the medial 49 instep) Point of Measurement (cm from the medial 26 instep) WC - Nurse 2 - General Ulcer CM Notes Start: 10/19/24 08:17 Freq: Status: Active Protocol: Activity Type Activity Date Activity User E-sign Co-sign Detail Recorded Client Recorded Date Recorded By Document 10/19/24 08:39 SALLY [id number] 10/19/24 08:45 Document 11/02/24 08:41 [id number] 11/02/24 08:46 JF 10/19/24 11/02/24 08:39 08:41 Wound Center Nurse 2 15-Right lateral foot -Time 08:44 -Correct Patient Yes Yes -Correct Side, Site, Position Yes No -Correct Procedure Yes No -Procedure Performed Yes No -Type of Procedure Debridement -Clinical Debridement Subcutaneous -Tissue Removed Subcutaneous -Post Debridement (cm) - Length 0.5 0 -Post Debridement (cm) - Width 0.5 0 -Post Debridement (cm) - Depth 0.1 0 -Total Square (Post) (cm) 0.25 0 -Area of Debridement (cm) - Length 0.5 0 -Area of Debridement (cm) - Width 0.5 0 -Total Square (Area) (cm) 0.25 0 -Undermining/Tunneling No -Circular Undermining No -Wound/Ulcer Outcome Not Healed Healed- Epithelialized -Ulcer Cleansing Rinsed/ Irrigated with Saline -Foul Odor after Cleansing No -Bioengineered Tissue No -Bleeding Controlled with Pressure -Treatment Response Procedure Tolerated Well -Offloading No -Debridement - Subq, 1st 20sq cm No #14 Right Plantar -Time 08:40 -Correct Patient Yes -Correct Side, Site, Position No -Correct Procedure No -Procedure Performed No -Post Debridement (cm) - Length 0 -Post Debridement (cm) - Width 0 -Post Debridement (cm) - Depth 0 -Total Square (Post) (cm) 0 -Area of Debridement (cm) - Length 0 -Area of Debridement (cm) - Width 0 -Total Square (Area) (cm) 0 -Tunneling No -Undermining/Tunneling No -Circular Undermining No -Wound/Ulcer Outcome Healed- Epithelialized -Ulcer Cleansing Rinsed/ Irrigated with Saline -Foul Odor after Cleansing No -Bioengineered Tissue No -Bleeding Controlled with Pressure #13 R 2nd Toe -Correct Patient Yes -Correct Side, Site, Position No -Correct Procedure No -Procedure Performed No -Post Debridement (cm) - Length 0 -Post Debridement (cm) - Width 0 -Post Debridement (cm) - Depth 0 -Total Square (Post) (cm) 0 -Area of Debridement (cm) - Length 0 -Area of Debridement (cm) - Width 0 -Total Square (Area) (cm) 0 -Wound/Ulcer Outcome Healed- Epithelialized 16-right lateral ankle -Time 08:43 08:44 -Correct Patient Yes Yes -Correct Side, Site, Position Yes Yes -Correct Procedure Yes Yes -Procedure Performed Yes Yes -Type of Procedure Debridement Debridement -Clinical Debridement Subcutaneous Subcutaneous -Tissue Removed Subcutaneous Subcutaneous -Post Debridement (cm) - Length 0.7 0.3 -Post Debridement (cm) - Width 1.0 0.5 -Post Debridement (cm) - Depth 0.1 0.1 -Total Square (Post) (cm) 0.70 0.15 -Area of Debridement (cm) - Length 0.7 0.3 -Area of Debridement (cm) - Width 1.0 0.5 -Total Square (Area) (cm) 0.70 0.15 -Tunneling No No -Undermining/Tunneling No No -Circular Undermining No No -Wound/Ulcer Outcome Not Healed Not Healed -Ulcer Cleansing Rinsed/ Rinsed/ Irrigated with Irrigated with Saline Saline -Foul Odor after Cleansing No No -Bioengineered Tissue No No -Bleeding Controlled with Pressure Pressure -Treatment Response Procedure Procedure Tolerated Well Tolerated Well -Offloading No Yes -Type of Offloading Surgical Shoe -Debridement - Subq, 1st 20sq cm No Yes #12 R great toe -Time 08:42 08:45 -Correct Patient Yes Yes -Correct Side, Site, Position Yes Yes -Correct Procedure Yes Yes -Procedure Performed Yes Yes -Type of Procedure Debridement Debridement -Clinical Debridement Subcutaneous Subcutaneous -Tissue Removed Subcutaneous Subcutaneous -Post Debridement (cm) - Length 1.5 0.4 -Post Debridement (cm) - Width 1.4 1.0 -Post Debridement (cm) - Depth 0.1 0.1 -Total Square (Post) (cm) 2.10 0.40 -Area of Debridement (cm) - Length 1.5 0.4 -Area of Debridement (cm) - Width 1.4 1.0 -Total Square (Area) (cm) 2.10 0.40 -Tunneling No No -Undermining/Tunneling No No -Circular Undermining No No -Wound/Ulcer Outcome Not Healed Not Healed -Ulcer Cleansing Rinsed/ Rinsed/ Irrigated with Irrigated with Saline Saline -Foul Odor after Cleansing No No -Bioengineered Tissue No No -Bleeding Controlled with Pressure Pressure -Treatment Response Procedure Procedure Tolerated Well Tolerated Well -Offloading No Yes -Type of Offloading Surgical Shoe -Debridement - Subq, 1st 20sq cm Yes No Pain Scale: 0-10 Numeric Is Patient Pain Free? Yes Yes - Nurse 3 - General Ulcer D/C NN Start: 10/19/24 08:17 Freq: Status: Active Protocol: Activity Type Activity Date Activity User E-sign Co-sign Detail Recorded Client Recorded Date Recorded By Document 10/19/24 09:04 IA [id number] 10/19/24 09:05 IA Document 11/02/24 09:03 [id number] 11/02/24 09:03 10/19/24 11/02/24 09:04 09:03 Wound Care Center Nurse 3 16-right lateral ankle -Ulcer Cleansing Soap and Water Not Cleansed -Foul Odor after Cleansing No No -Negative Pressure Wound Therapy N/A -Other Dressing betadine -Primary Dressing Covered/Secured with Dry Gauze,Dry Dry Gauze & Gauze & Roll Roll Gauze, Gauze,Secured Secured with with Tape Tape #12 R great toe -Ulcer Cleansing Not Cleansed -Primary Dressing Covered/Secured with Dry Gauze RLE -Lotion applied to leg before No compression wrap -Compression Wrap Armaan Wrap Armaan Wrap -Stockings No Pain Scale: 0-10 Numeric Is Patient Pain Free? No Yes - Visit Discharge Discharge Condition Stable Ambulatory Status Wheelchair Transportation Private Auto Clinical Summary of Care Provided Yes Assessment/Plan Assessment/Plan (1) Non-pressure chronic ulcer of right ankle with fat layer exposed: CODE(S): L97.312 - Non-pressure chronic ulcer of right ankle with fat layer exposed PLAN: Patient was examined and evaluated. All findings were discussed with the patient. All questions were answered to the patient's satisfaction. Excisional debridement down to and including subcutaneous tissue with a number 3 mm dermal curette to the distal hallux full-thickness wound done without incident. Predebridement measurement was eschar. Postdebridement measurement is 0.4 x 1.0 x 0.1 cm. Excisional debridement down to including subcutaneous tissue with a number 3 mm dermal curette to the right lateral ankle at the level of the fibula done without incident. Predebridement measurement was callus. Postdebridement measurement is 0.3 x 0.5 x 0.1 cm. Educated the patient continue to work with physical therapy with his prosthesis on his right is not set technique and that eventually begin to weight-bear as tolerated to the right lower extremity and prosthesis to the left lower extremity. Continue strict blood sugar control. Wound care orders given for the facility. Follow-up at the wound care center with Dr. Sarah in 2 week. (2) Non-pressure chronic ulcer of other part of left foot with fat layer exposed: CODE(S): L97.522 - Non-pressure chronic ulcer of other part of left foot with fat layer exposed
== END 2024-11-12 23:59 | disposition home or self-care (01) ==
LOC: WC 08:00
PROVIDERS: PCP Internal Medicine Infectious Disease; Visit Provider Podiatrist Foot & Ankle Surgery
DX: E11.622 Type 2 diabetes mellitus with other skin ulcer (principal); L97.312 Non-pressure chronic ulcer of right ankle with fat layer exposed; L97.522 Non-pressure chronic ulcer of other part of left foot with fat layer exposed; L97.519 Non-pressure chronic ulcer of other part of right foot with unspecified severity
CPT/HCPCS: 11042

== ENCOUNTER 2024-11-30 08:00 | Outpatient (RCR) | payer MEDICARE, MEDICAID, SELFPAY ==
[2024-11-13 00:13] VITALS: BP 132/62; PULSE 87; RESP 16; TEMP 36.2
[2024-11-16 08:09] VITALS: BP 109/96; PULSE 93; RESP 16
--- NOTE | 2024-11-16 08:45 | PN.PCM_ITS ---
History of Present Illness Date of Service: 11/16/24 Chief Complaint: Full-thickness wound right ankle History of Wound: Healed right ankle wound, multiple full-thickness wound to the distal right foot Progress of Wound: Stable healing right lower extremity wounds. Subjective Subjective Mr. Olivares is a 79-year-old male presenting to wound care center today for follow-up evaluation of full-thickness wounds to the right lower extremity hallux, second toe, lateral foot as well as lateral ankle. Patient is nonambulatory except with prosthesis and AFO use during physical therapy. Otherwise he resides in a wheelchair and his legs in a dependent position. He denies any trauma. He did admit to stable blood sugar. Denies constitutional symptoms. No other pedal complaints at this time. Objective Data Objective Data Vital Signs: Vital Signs Temp Pulse Resp BP O2 Del Method 97.1 F L 93 16 109/96 H Room Air 11/13/24 00:13 11/16/24 08:09 11/16/24 08:09 11/16/24 08:09 11/16/24 08:09 Oxygen Delivery Method Room Air Physical Exam Narrative Vascular: DP and PT pulses are faintly palpable to the right lower extremity. CFT is brisk to the bilateral lower extremity. No erythema. Nonpitting edema to right lower extremity. Neurological: Light touch intact. Protective sensation is absent. Dermatological: Full-thickness wounds to the right lower extremity hallux, second digit and lateral ankle measures 0.1 x 0.1 x 0.1 cm. Evidence of healed lateral right foot wound. No erythema drainage or concern for infection. Musculoskeletal: Evidence of varus contracture to the right ankle. Patient is nonambulatory and resides in wheelchair. No pain with calf pressure bilateral. Debridement Note Debridement Note Post-Debridement Measurements and Additional Note: Post-Debridement Measurements/Treatment - Nurse 1 - General Ulcer Assessment Start: 11/16/24 08:09 Freq: Status: Active Protocol: FABIENNE Activity Type Activity Date Activity User E-sign Co-sign Detail Recorded Client Recorded Date Recorded By Document 11/16/24 08:09 [id number] 11/16/24 08:20 11/16/24 08:09 - Today's Visit Information Type of service Follow-up Visit (Physician/[employer] ) Arrival Mode Wheelchair Transfer Assistance None Patient Identification Verified (Name & Yes ) Vital Signs Pulse Rate (60-100) 93 Pulse Location Monitor Respiratory Rate (12-18) 16 Respiratory rate source Observation Oxygen Delivery Method Room Air Blood Pressure (90/60-120/80) 109/96 H Blood Pressure Mean (mm Hg) 100 Source Monitor Position Sitting Blood Pressure Location Right Forearm History Since Last Visit- (Skip if this is Patient's initial visit) Have you changed medications since your No last visit? Any new allergies or adverse reactions No Had a fall/change in ADL's that may No increase risk of falls Signs or symptoms of abuse and/or No neglect since last visit Have you been in the hospital since your No last visit? Has dressing in place as prescribed Yes Has compression in place as prescribed Yes Has offloadiing in place as prescribed Yes Experienced any changes in pain level or No management Right Footwear [place]/Foam Pain Scale: 0-10 Numeric Is Patient Pain Free? Yes WC - Nurse 1 - General Ulcer Measurement Start: 11/16/24 08:09 Freq: Status: Active Protocol: Activity Type Activity Date Activity User E-sign Co-sign Detail Recorded Client Recorded Date Recorded By Document 11/16/24 08:09 [id number] 11/16/24 08:20 11/16/24 08:09 Wound Center Nurse 1 16-right lateral ankle -Current Size (cm) - Length 0.3 -Current Size (cm) - Width 0.3 -Current Size (cm) - Depth 0.1 -Total Square Cm 0.09 -Photo Taken No -Epithelialization Large 67-100% -Tunneling No -Undermining/Tunneling No -Circular Undermining No -Exudate Amt None Present -Granulation Amt Small (1-33%) -Texture (Michell-wound Skin Appearance) Assessed -Moisture (Michell-wound Skin Appearance) Assessed -Color (Michell-wound Skin Appearance) Assessed -Temperature (Michell-wound Skin No Abnormality Appearance) (Pt Warm) -Tenderness on Palpation (Michell-wound No Skin Appearance) -Ulcer Cleansing Soap and Water -Anesthetic Used 5% Lidocaine Gel #12 R great toe -Current Size (cm) - Length 0.3 -Current Size (cm) - Width 2.5 -Current Size (cm) - Depth 0.1 -Total Square Cm 0.75 -Photo Taken No -Epithelialization Medium 34-66% -Tunneling No -Undermining/Tunneling No -Circular Undermining No -Exudate Amt None Present -Wound Margin Distinct, Outline Attached -Granulation Amt Small (1-33%) -Granulation Quality [place] -Slough/Fibrin No -Necrosis Amt None Present (0 %) -Texture (Michell-wound Skin Appearance) Assessed -Moisture (Michell-wound Skin Appearance) Assessed -Color (Michell-wound Skin Appearance) No Abnormality -Temperature (Michell-wound Skin No Abnormality Appearance) (Pt Warm) -Tenderness on Palpation (Michell-wound No Skin Appearance) -Ulcer Cleansing Soap and Water -Foul Odor after Cleansing No -Anesthetic Used 5% Lidocaine Gel Lower Limb Edema Present No Right Calf (cm) 44 Right Ankle (cm) 25 WC - Nurse 2 - General Ulcer CM Notes Start: 11/16/24 08:09 Freq: Status: Active Protocol: Activity Type Activity Date Activity User E-sign Co-sign Detail Recorded Client Recorded Date Recorded By Document 11/16/24 08:37 SALLY [id number] 11/16/24 08:38 SALLY 11/16/24 08:37 Wound Center Nurse 2 16-right lateral ankle -Correct Patient Yes -Correct Side, Site, Position No -Correct Procedure No -Procedure Performed No -Post Debridement (cm) - Length 0.1 -Post Debridement (cm) - Width 0.1 -Post Debridement (cm) - Depth 0.1 -Total Square (Post) (cm) 0.01 -Area of Debridement (cm) - Length 0.1 -Area of Debridement (cm) - Width 0.1 -Total Square (Area) (cm) 0.01 -Wound/Ulcer Outcome Not Healed #12 R great toe -Correct Patient Yes -Correct Side, Site, Position No -Correct Procedure No -Procedure Performed No -Post Debridement (cm) - Length 0.1 -Post Debridement (cm) - Width 0.1 -Post Debridement (cm) - Depth 0.1 -Total Square (Post) (cm) 0.01 -Area of Debridement (cm) - Length 0.1 -Area of Debridement (cm) - Width 0.1 -Total Square (Area) (cm) 0.01 -Wound/Ulcer Outcome Not Healed Pain Scale: 0-10 Numeric Is Patient Pain Free? Yes Assessment/Plan Assessment/Plan (1) Non-pressure chronic ulcer of right ankle with fat layer exposed: CODE(S): L97.312 - Non-pressure chronic ulcer of right ankle with fat layer exposed PLAN: Patient was examined and evaluated. All findings were discussed with the patient. All questions were answered to the patient's satisfaction. After physical examination the patient is showing great improvement to the right lower extremity hallux, second digit and lateral ankle wound. All wounds measure 0.1 x 0.1 x 0.1 cm. There is no redness drainage or sign of infection. Patient will continue 2 oh have Betadine paint dry sterile dressing and compression wrap donned to right lower extremity. Encourage continued physical therapy use with AFO and prosthesis donned to left lower extremity. Patient is very grateful for his care. Follow-up at the wound care center with Dr. Sarah in 2 week. (2) Non-pressure chronic ulcer of other part of left foot with fat layer exposed: CODE(S): L97.522 - Non-pressure chronic ulcer of other part of left foot with fat layer exposed
[2024-11-30 08:00] VITALS: BP 151/71; PULSE 88; RESP 18; TEMP 36.7
--- NOTE | 2024-11-30 11:15 | PN.PCM_ITS ---
History of Present Illness Date of Service: 11/30/24 Chief Complaint: Full-thickness wound right ankle History of Wound: Healed right ankle wound, multiple full-thickness wound to the distal right foot Progress of Wound: Stable healing right lower extremity wounds. Subjective Subjective Mr. Olivares is a 79-year-old male presenting to clinic today for follow-up evaluation of full-thickness wound to the lateral right ankle. Patient has been doing dressing changes per nursing staff and states that he notices great healing to the wound. Patient is working with physical therapy and using his prosthesis to the left lower extremity. Blood sugar well-controlled. Denies trauma. Denies constitutional symptoms. No other pedal complaints at this time. Objective Data Objective Data Vital Signs: Vital Signs Temp Pulse Resp BP O2 Del Method 98.1 F 88 18 151/71 H Room Air 11/30/24 08:00 11/30/24 08:00 11/30/24 08:00 11/30/24 08:00 11/30/24 08:00 Oxygen Delivery Method Room Air Physical Exam Narrative Vascular: DP and PT pulses are faintly palpable to the right lower extremity. CFT is brisk to the bilateral lower extremity. No erythema. Nonpitting edema to right lower extremity. Neurological: Light touch intact. Protective sensation is absent. Dermatological: Full-thickness wounds to the right lower extremity hallux, second digit and lateral ankle measures 0.1 x 0.1 x 0.1 cm. Evidence of healed lateral right foot wound. No erythema drainage or concern for infection. Musculoskeletal: Evidence of varus contracture to the right ankle. Patient is nonambulatory and resides in wheelchair. No pain with calf pressure bilateral. Debridement Note Debridement Note Post-Debridement Measurements and Additional Note: Post-Debridement Measurements/Treatment [facility] Nurse 1 - General Ulcer Assessment Start: 11/16/24 08:09 Freq: Status: Active Protocol: [email or web address].BOYD Activity Type Activity Date Activity User E-sign Co-sign Detail Recorded Client Recorded Date Recorded By Document 11/16/24 08:09 [id number] 11/16/24 08:20 GM Document 11/30/24 08:00 KW [id number] 11/30/24 08:05 KW 11/16/24 11/30/24 08:09 08:00 - Today's Visit Information Type of service Follow-up Visit Follow-up Visit (Physician/WEDGER (Physician/WEDGER ) ) Arrival Mode Wheelchair Wheelchair Transfer Assistance None Accompanied by critical care registered nurse Patient Identification Verified (Name & Yes Yes ) Vital Signs Temperature (97.8 F-99.1 F) 98.1 F Temperature Source Temporal Pulse Rate (60-100) 93 88 Pulse Location Monitor Monitor Respiratory Rate (12-18) 16 18 Respiratory rate source Observation Observation Oxygen Delivery Method Room Air Room Air Blood Pressure (90/60-120/80) 109/96 H 151/71 H Blood Pressure Mean (mm Hg) 100 97 Source Monitor Monitor Position Sitting Sitting Blood Pressure Location Right Forearm Left Arm History Since Last Visit- (Skip if this is Patient's initial visit) Have you changed medications since your No No last visit? Any new allergies or adverse reactions No No Had a fall/change in ADL's that may No No increase risk of falls Signs or symptoms of abuse and/or No No neglect since last visit Have you been in the hospital since your No No last visit? 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 Yes Yes WC - Nurse 1 - General Ulcer Measurement Start: 11/16/24 08:09 Freq: Status: Active Protocol: Activity Type Activity Date Activity User E-sign Co-sign Detail Recorded Client Recorded Date Recorded By Document 11/16/24 08:09 [id number] 11/16/24 08:20 Document 11/30/24 08:00 [id number] 11/30/24 08:05 11/16/24 11/30/24 08:09 08:00 Wound Center Nurse 1 16-right lateral ankle -Current Size (cm) - Length 0.3 0.1 -Current Size (cm) - Width 0.3 0.1 -Current Size (cm) - Depth 0.1 0.1 -Total Square Cm 0.09 0.01 -Date of Last Picture (Recall this 11/30/24 field) -Photo Taken No -Epithelialization Large 67-100% Large 67-100% -Tunneling No -Undermining/Tunneling No -Circular Undermining No -Exudate Amt None Present None Present -Wound Margin Indistinct, Non -Visible -Granulation Amt Small (1-33%) -Texture (Michell-wound Skin Appearance) Assessed Assessed -Moisture (Michell-wound Skin Appearance) Assessed Assessed,Dry/ Scaly -Color (Michell-wound Skin Appearance) Assessed Assessed -Temperature (Michell-wound Skin No Abnormality No Abnormality Appearance) (Pt Warm) (Pt Warm) -Tenderness on Palpation (Michell-wound No No Skin Appearance) -Ulcer Cleansing Soap and Water Rinsed/ Irrigated with Saline -Foul Odor after Cleansing No -Anesthetic Used 5% Lidocaine 5% Lidocaine Gel Gel #12 R great toe -Current Size (cm) - Length 0.3 0.1 -Current Size (cm) - Width 2.5 0.1 -Current Size (cm) - Depth 0.1 0.1 -Total Square Cm 0.75 0.01 -Date of Last Picture (Recall this 11/30/24 field) -Photo Taken No -Epithelialization Medium 34-66% Large 67-100% -Tunneling No -Undermining/Tunneling No -Circular Undermining No -Exudate Amt None Present -Wound Margin Distinct, Outline Attached -Granulation Amt Small (1-33%) -Granulation Quality [place] -Slough/Fibrin No -Necrosis Amt None Present (0 %) -Texture (Michell-wound Skin Appearance) Assessed Assessed -Moisture (Michell-wound Skin Appearance) Assessed Assessed,Dry/ Scaly -Color (Michell-wound Skin Appearance) No Abnormality Assessed -Temperature (Michell-wound Skin No Abnormality No Abnormality Appearance) (Pt Warm) (Pt Warm) -Tenderness on Palpation (Michell-wound No No Skin Appearance) -Ulcer Cleansing Soap and Water Rinsed/ Irrigated with Saline -Foul Odor after Cleansing No No -Anesthetic Used 5% Lidocaine 5% Lidocaine Gel Gel Lower Limb Edema Present No Right Calf (cm) 44 Right Ankle (cm) 25 WC - Nurse 2 - General Ulcer CM Notes Start: 11/16/24 08:09 Freq: Status: Active Protocol: Activity Type Activity Date Activity User E-sign Co-sign Detail Recorded Client Recorded Date Recorded By Document 11/16/24 08:37 SALLY [id number] 11/16/24 08:38 SALLY Document 11/30/24 08:27 [id number] 11/30/24 08:27 11/16/24 11/30/24 08:37 08:27 Wound Center Nurse 2 16-right lateral ankle -Correct Patient Yes Yes -Correct Side, Site, Position No No -Correct Procedure No No -Procedure Performed No No -Post Debridement (cm) - Length 0.1 -Post Debridement (cm) - Width 0.1 -Post Debridement (cm) - Depth 0.1 -Total Square (Post) (cm) 0.01 -Area of Debridement (cm) - Length 0.1 -Area of Debridement (cm) - Width 0.1 -Total Square (Area) (cm) 0.01 -Wound/Ulcer Outcome Not Healed Not Healed #12 R great toe -Correct Patient Yes Yes -Correct Side, Site, Position No No -Correct Procedure No No -Procedure Performed No No -Post Debridement (cm) - Length 0.1 -Post Debridement (cm) - Width 0.1 -Post Debridement (cm) - Depth 0.1 -Total Square (Post) (cm) 0.01 -Area of Debridement (cm) - Length 0.1 -Area of Debridement (cm) - Width 0.1 -Total Square (Area) (cm) 0.01 -Wound/Ulcer Outcome Not Healed Not Healed Pain Scale: 0-10 Numeric Is Patient Pain Free? Yes Yes - Nurse 3 - General Ulcer D/C NN Start: 11/16/24 08:09 Freq: Status: Active Protocol: Activity Type Activity Date Activity User E-sign Co-sign Detail Recorded Client Recorded Date Recorded By Document 11/16/24 16:09 [id number] 11/16/24 16:10 Document 11/30/24 08:33 [id number] 11/30/24 08:34 11/16/24 11/30/24 16:09 08:33 Wound Care Center Nurse 3 16-right lateral ankle -Ulcer Cleansing Not Cleansed -Foul Odor after Cleansing No -Other Dressing betadine -Primary Dressing Covered/Secured with Dry Gauze Other -Other Covering betadine and bandaid #12 R great toe -Ulcer Cleansing Not Cleansed -Foul Odor after Cleansing No -Other Dressing betadine -Primary Dressing Covered/Secured with Dry Gauze & Other Roll Gauze, Secured with Tape -Other Covering betadine and bandaid RLE -Compression Wrap Armaan Wrap -Other 2 armaan, 4 in on foot, 6in up leg Pain Scale: 0-10 Numeric Is Patient Pain Free? Yes Yes WC - Visit Discharge Discharge Condition Stable Stable Ambulatory Status Wheelchair Ambulatory Transportation Private Auto Medication Reconcilliation completed & No provided to patient/care provider Clinical Summary of Care Provided Yes Assessment/Plan Assessment/Plan (1) Non-pressure chronic ulcer of right ankle with fat layer exposed: CODE(S): L97.312 - Non-pressure chronic ulcer of right ankle with fat layer exposed PLAN: Patient was examined and evaluated. All findings were discussed with the patient. All questions were answered to the patient's satisfaction. After physical exam there shows great improvement to the full-thickness wound with segment across that measures 0.1 x 0.1 x 0.1 cm. 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 They will continue Betadine paint sterile Band-Aid every day and continue strict blood sugar control. Patient will follow-up sooner if there is any breakdown of skin and this was stressed to the nursing staff that was present with the patient today in clinic. Follow-up at the wound care center with Dr. Sarah in 1 month or sooner if needed.
--- NOTE | 2024-12-01 09:39 | WC ---
PHOTO 11/30/24 RIGHT HALLUX
== END 2024-12-12 23:59 | disposition home or self-care (01) ==
LOC: WC 08:00
PROVIDERS: PCP Internal Medicine Infectious Disease; Referring Provider Internal Medicine Infectious Disease; Visit Provider Podiatrist Foot & Ankle Surgery
DX: L97.312 Non-pressure chronic ulcer of right ankle with fat layer exposed (principal); Z99.3 Dependence on wheelchair
CPT/HCPCS: 99213; G0463

== ENCOUNTER 2024-12-28 07:58 | Outpatient (RCR) | payer MEDICARE, MEDICAID, SELFPAY ==
[2024-12-28 08:03] VITALS: RESP 18; TEMP 37
--- NOTE | 2024-12-28 08:35 | PCM.WC.PN ---
History of Present Illness Date of Service: 12/28/24 Chief Complaint: Full-thickness wound right ankle History of Wound: Healed right ankle wound, multiple full-thickness wound to the distal right foot Progress of Wound: Healed full-thickness wound lateral right ankle. Subjective Subjective Mr. Olivares is a 79-year-old diabetic male presenting to the wound care center today for follow-up evaluation of full-thickness wound to the lateral aspect of the right ankle. Patient has been compliant with offloading and dressing changes per the nursing facility. His blood sugars well-controlled. 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 He denies any open lesions or abrasions. He denies trauma. Denies constitutional symptoms. No other pedal complaints at this time. Objective Data Objective Data Vital Signs: Vital Signs Temp Resp O2 Del Method 98.6 F 18 Room Air 12/28/24 08:03 12/28/24 08:03 12/28/24 08:03 Oxygen Delivery Method Room Air Physical Exam Narrative Vascular: DP and PT pulses are faintly palpable to the right lower extremity. CFT is brisk to the bilateral lower extremity. No erythema. Nonpitting edema to right lower extremity. Neurological: Light touch intact. Protective sensation is absent. Dermatological: Healed full-thickness wound to the right lateral ankle. Stable with no sign of infection. Musculoskeletal: Evidence of varus contracture to the right ankle. No pain with calf pressure bilateral. Debridement Note Debridement Note Post-Debridement Measurements and Additional Note: Post-Debridement Measurements/Treatment - Nurse 1 - General Ulcer Assessment Start: 12/28/24 08:03 Freq: Status: Active Protocol: JOANA.BOYD Activity Type Activity Date Activity User E-sign Co-sign Detail Recorded Client Recorded Date Recorded By Document 12/28/24 08:03 KW [id number] 12/28/24 08:10 KW 12/28/24 08:03 - Today's Visit Information Type of service Follow-up Visit (Physician/SHIPYARD PAINTER ) Arrival Mode Wheelchair Accompanied by nurse Patient Identification Verified (Name & Yes ) Vital Signs Temperature (97.8 F-99.1 F) 98.6 F Temperature Source Temporal Pulse Location Monitor Respiratory Rate (12-18) 18 Respiratory rate source Observation Oxygen Delivery Method Room Air Source Monitor Position Semi-Fowlers Blood Pressure Location Left Arm History Since Last Visit- (Skip if this is Patient's initial visit) Have you changed medications since your No last visit? Any new allergies or adverse reactions No Had a fall/change in ADL's that may No increase risk of falls Signs or symptoms of abuse and/or No neglect since last visit Have you been in the hospital since your No last visit? Has dressing in place as prescribed Yes Has compression in place as prescribed Yes Has offloadiing in place as prescribed Yes Experienced any changes in pain level or No management Left Footwear Regular Shoe Right Footwear Regular Shoe Pain Scale: 0-10 Numeric Is Patient Pain Free? Yes JOANA - Nurse 1 - General Ulcer Measurement Start: 12/28/24 08:03 Freq: Status: Active Protocol: Activity Type Activity Date Activity User E-sign Co-sign Detail Recorded Client Recorded Date Recorded By Document 12/28/24 08:03 [email or web address] [id number] 12/28/24 08:10 KW 12/28/24 08:03 Wound Center Nurse 1 16-right lateral ankle -Current Size (cm) - Length 0 -Current Size (cm) - Width 0 -Current Size (cm) - Depth 0 -Total Square Cm 0 -Date of Last Picture (Recall this 12/28/24 field) -Texture (Michell-wound Skin Appearance) Assessed -Moisture (Michell-wound Skin Appearance) Assessed -Color (Michell-wound Skin Appearance) Assessed -Temperature (Michell-wound Skin No Abnormality Appearance) (Pt Warm) -Tenderness on Palpation (Michell-wound No Skin Appearance) -Ulcer Cleansing Rinsed/ Irrigated with Saline -Foul Odor after Cleansing No -Wound Comment(s) healed #12 R great toe -Current Size (cm) - Length 0 -Current Size (cm) - Width 0 -Current Size (cm) - Depth 0 -Total Square Cm 0 -Date of Last Picture (Recall this 12/28/24 field) -Texture (Michell-wound Skin Appearance) Assessed -Moisture (Michell-wound Skin Appearance) Assessed -Color (Michell-wound Skin Appearance) Assessed -Temperature (Michell-wound Skin No Abnormality Appearance) (Pt Warm) -Tenderness on Palpation (Michell-wound No Skin Appearance) -Ulcer Cleansing Rinsed/ Irrigated with Saline -Foul Odor after Cleansing No -Wound Comment(s) healed JOANA - Nurse 2 - General Ulcer CM Notes Start: 12/28/24 08:03 Freq: Status: Active Protocol: Activity Type Activity Date Activity User E-sign Co-sign Detail Recorded Client Recorded Date Recorded By Document 12/28/24 08:28 SALLY [id number] 12/28/24 08:29 SALLY 12/28/24 08:28 Wound Center Nurse 2 16-right lateral ankle -Correct Patient Yes -Correct Side, Site, Position No -Correct Procedure No -Procedure Performed No -Post Debridement (cm) - Length 0 -Post Debridement (cm) - Width 0 -Post Debridement (cm) - Depth 0 -Total Square (Post) (cm) 0 -Area of Debridement (cm) - Length 0 -Area of Debridement (cm) - Width 0 -Total Square (Area) (cm) 0 -Wound/Ulcer Outcome Healed- Epithelialized #12 R great toe -Correct Patient Yes -Correct Side, Site, Position No -Correct Procedure No -Procedure Performed No -Post Debridement (cm) - Length 0 -Post Debridement (cm) - Width 0 -Post Debridement (cm) - Depth 0 -Total Square (Post) (cm) 0 -Area of Debridement (cm) - Length 0 -Area of Debridement (cm) - Width 0 -Total Square (Area) (cm) 0 -Wound/Ulcer Outcome Healed- Epithelialized Pain Scale: 0-10 Numeric Is Patient Pain Free? Yes Assessment/Plan Assessment/Plan (1) Non-pressure chronic ulcer of right ankle with fat layer exposed: CODE(S): L97.312 - Non-pressure chronic ulcer of right ankle with fat layer exposed PLAN: Patient was examined and evaluated. All findings were discussed with the patient. All questions were answered to the patient's satisfaction. After physical examination the patient's full-thickness wound to the lateral right ankle is now healed. I educated the patient on elevation and to continue strict blood sugar control. Patient will be wrapped in Armaan wrap's and will continue compression daily. 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 I did educate the patient that he cannot reside in his wheelchair all day and his leg in a dependent position as he is at risk for breakdown of skin which she is understanding of. He does have a PRAFO and will continue to offload as discussed. The patient is very grateful for his care and will be discharged from the wound care center today and follow-up as needed.
--- NOTE | 2024-12-28 14:11 | WC ---
PHOTO 12/28/24 RIGHT HALLUX
--- NOTE | 2024-12-28 14:15 | WC ---
PHOTO 12/28/24 RIGHT ANKLE
== END 2025-01-12 14:56 | disposition home or self-care (01) ==
LOC: WC 07:58
PROVIDERS: PCP Internal Medicine Infectious Disease; Referring Provider Internal Medicine Infectious Disease; Visit Provider Podiatrist Foot & Ankle Surgery
DX: Z09 Encounter for follow-up examination after completed treatment for conditions other than malignant neoplasm (principal); Z89.512 Acquired absence of left leg below knee; M21.179 Varus deformity, not elsewhere classified, unspecified ankle
CPT/HCPCS: 99213; G0463